=== PATIENT | male | born 1965 | race Hispanic/Latino ===

== ENCOUNTER → 2020-04-27 | Outpatient (CLI) | payer OTHER ==
[~2020-04-27] MED LIST: AMLODIPINE BESY10 MG PO; GLYBURIDE-METF1 EAC1 PO; HYDROCHLOROTHIA25 MG PO; JANUVIA100 MG PO; METOPROLOL SUCC50 MG PO; PANTOPRAZOLE SO40 MG PO
--- NOTE | 2020-04-27 09:11 | Diagnostic Imaging Report ---
Exam: CHEST 2 VIEWS Date: 04/27/2020 9:07 AM INDICATION: ^[id number] ^[id number] ^PNEUMONIA Comparison: None FINDINGS: Lines/Tubes:None Lungs:There are a few ill-defined opacities at the lung bases peripherally. Negative for focal lobar consolidation. Low lung volumes are noted. Pleura:No pleural effusion. No pneumothorax. Heart/Mediastinum:The cardiomediastinal silhouette is normal in size and contour. Bones/Soft Tissues: No acute osseous abnormality. Upper abdomen: Unremarkable. IMPRESSION: Ill-defined linear opacities at the lung bases peripherally. Findings are concerning for multifocal pneumonia. Consider covid infection. Low lung volumes. Signed by: Beau Mahoney MD on 04/27/2020 9:08 AM
== END ==
LOC: RAD 07:10
PROVIDERS: ATTEND Family Medicine
DX: Z09 Encounter for follow-up examination after completed treatment for conditions other than malignant neoplasm (principal); J18.9 Pneumonia, unspecified organism
CPT/HCPCS: 71046

== ENCOUNTER 2020-05-03 11:04 | Emergency (ER) | payer OTHER ==
[~2020-05-03] VITALS: Ht 170.2 cm; Wt 86.2 kg
[2020-05-03] MEDS ORDERED: LACTATED RINGER'S 1,000 ML INJ ONE ×2 (12:00→14:00)
[2020-05-03 12:07] LABS: BASOPHILS # (AUTO) 0.1 (0.0-0.1); BASOPHILS % 0.4 % (0.0-1.0); EOSINOPHILS # (AUTO) 0.1 (0.0-0.4); EOSINOPHILS % 0.4 % (0.0-6.0); HEMATOCRIT 36.9 % (38.2-49.6); HEMOGLOBIN 11.5 g/dL (14.0-18.0); LYMPHOCYTES # (AUTO) 1.1 (1.0-3.2); LYMPHOCYTES % 8.4 % (18.0-39.1); MEAN CORPUSCULAR HEMOGLOBIN 27.1 pg (28-32); MEAN CORPUSCULAR HGB CONC 31.2 g/dL (31-35); MEAN CORPUSCULAR VOLUME 86.8 fL (81-99); MONOCYTES # (AUTO) 1.7 (0.2-0.8); MONOCYTES % 12.9 % (4.4-11.3); NEUTROPHILS # (AUTO) 10.1 (2.1-6.9); NEUTROPHILS % 77.1 % (38.7-80.0); PLATELET COUNT 108 x10e3/uL (140-360); RED BLOOD COUNT 4.25 x10e6/uL (4.3-5.7)
--- OUTSIDE RECORDS SUMMARY | 2020-05-03 12:09 | XMS REPORT | Continuity of Care Document ---
Author Author [facility] t Organization [facility] t Address [address] [place] [address] Phone Unavailable Care Team Providers Care Intercell Connector Placer Name Role Phone Pcp, No PCP Unavailable AARTI ESQUIVEL, Christ MENDOZA Attphys Unavailable Hang ESQUIVEL, Jah Greenfield Attphys Monisha PorterP.A. -MCarlos Attphys Unavailable Carmela ESQUIVEL, Valdemar Attphys Anna Powers MD, Maciej Coles Attphys [phone] Preethi ESQUIVEL, Sophia Attphys Dominic ESQUIVEL, Charles Lawson Attphys [phone] Cara ESQUIVEL, Jenny Joy Attphys Jennifer ESQUIVEL, Aure Aden Attphys [phone] Jazmin Lemon MD, Gabriela Lawson Attphys [phone] Prudencio ESQUIVEL, Lana Lindsey Attphys Haley ESQUIVEL, Santos Callejas Attphys Saima Lafleur Attphys Unavailable Charles ESQUIVEL, Zully Attphys Ally ESQUIVEL, Gricelda Almeida Attphys Jessica ESQUIVEL, In Esteban Attphys Oz ESQUIVEL, Harrison Aden Attphys Miguel Angel ESQUIVEL, Jean [place] Attphys John ESQUIVEL, Taylor Attphys [phone] Gaye ESQUIVEL, Marco Antonio Kebede Attphys [phone] Valdemar SALGADO, Iain Cantu Attphys [phone] Sheikh ALVIN, Farhad Vega Attphys Dillan ESQUIVEL, Rigo Lacey Attphys Lorene ESQUIVEL, Kevyn Llamas Attphys VALDEMAR CASEY Attphys Unavailable Shy ESQUIVEL, Kamille Attphys Aislinn ESQUIVEL, Rolf Attphys SOPHIA ORO Admphys Unavailable Payers Payer Name Policy Type Policy Number Effective Date Expiration Date [facility] P OS SELECT [id number] 2019-PresentHMO/POS [id number] 2019 00:0 0:00 [facility] Problems Condition Name Condition Details Condition Category Status Onset Date Resolution Date Last Treatment Date Treating Clinician Comments Source Septic shock Septic shock Disease Active 2019-12-25 00:00:00 [facility] Acute renal failure with tubular necrosis Acute renal failure with tubular necrosis Disease Active 2019-12-25 00:00:00 [facility] Acute respiratory distress syndrome (ARDS) due to COVI D-19 virus Acute respiratory distress syndrome (ARDS) due to COVID-19 virus Disease A ctive 2019-12-25 00:00:00 [facility] Acute metabolic encephalopathy Acute metabolic encephalopathy Disea se Active 2019-12-25 00:00:00 [facility] Acute respiratory failure with hypoxia Acute respiratory evonne lure with hypoxia Disease Active 2019-12-11 00:00:00 [facility] Pneumonia due to COVID-19 virus Pneumonia due to COVID-19 virus Dis ease Active [facility] Hyperkalemia Hyperkalemia Disease Active [facility] Allergies, Adverse Reactions, Alerts This patient has no known allergies or adverse reactions. Social History Social Habit Start Date Stop Date Quantity Comments Source Sex Assigned At [facility] Tobacco use and exposure 2020-02-11 00:00:00 2020-02-11 00:00:00 Wilber nix used [facility] Smoking Status Start Date Stop Date Source Never smoker [facility] Medications Ordered Medication Name Filled Medication Name Start Date Stop Da te Current Medication? Ordering Clinician Indication Dosage Frequency Signature (SIG) Comments Components Source tamsulosin (FLOMAX) 0.4 mg Cap 24 hr capsule 2020-02-15 00:00:00 Yes .4mg QD Take 1 capsule (0.4 mg total) by mouth daily. [facility] zinc oxide-petrolatum (CRITIC-AID) 20-51 % Pste topical past e 2020-02-12 00:00:00 Yes Apply to i nner aspect of buttocks, sacral area, and perineal area 3 times daily and as needed. [facility] insulin glargine (LANTUS) 100 unit/mL (3 mL) InPn 2020-02-12 00:00:00 Yes 15U QD Inject 15 Units subcutaneously every morning. [facility] midodrine (PROAMATINE) 10 MG tablet 2020-02-12 00:00:0 0 2020-02-15 00:00:00 No 10mg Take 1 tablet ( 10 mg total) by mouth every 8 (eight) hours for 30 days. [facility] Vital Signs Vital Name Observation Time Observation Value Comments Source Heart rate 2020-02-15 12:16:00 115 /min [facility] Oxygen saturation in Arterial blood by Pulse oximetry 02-14 12:16:00 97 /min [facility] Azeeme r Systolic blood pressure 2020-02-15 12:00:00 144 mm[Hg] [facility] Diastolic blood pressure 2020-02-15 12:00:00 88 mm[Hg] [facility] Body temperature 2020-02-15 12:00:00 36.94 Dania [facility] Respiratory rate 2020-02-15 12:00:00 18 /min [facility] Body weight 2020-02-15 06:00:00 98 kg [facility] BMI 2020-02-15 06:00:00 31.00 kg/m2 [facility] Body height 2019-12-11 18:05:00 177.8 cm [facility] Procedures Procedure Date / Time Performed Performing Clinician [facility] MR BRAIN WITH & WITHOUT IV CONTRAST 2020-03-22 10:44:00 Jean Pierre Mauricio [facility] REPORT OF PROCEDURE - ENDOSCOPY SCAN 2020-02-17 09:10:11 Pro vider, Default Scanning [facility] RHYTHM STRIP - SCAN 2020-02-17 09:10:09 Provider, Default Scanni ng [facility] RHYTHM STRIP - SCAN 2020-02-17 09:10:07 Provider, Default Scanni ng [facility] POCT-GLUCOSE METER 2020-02-15 11:34:00 Esteban Lopez In [facility] POCT-GLUCOSE METER 2020-02-15 06:33:00 Esteban Lopez In [facility] POCT-GLUCOSE METER 2020-02-15 00:14:00 Esteban Lopez In [facility] POCT-GLUCOSE METER 2020-02-14 18:29:00 Esteban Lopez In [facility] POCT-GLUCOSE METER 2020-02-14 11:55:00 Esteban Lopez In [facility] B-TYPE NATRIURETIC FACTOR (BNP) 2020-02-14 06:15:00 Esteban Lopez In [facility] BASIC METABOLIC PANEL (7) 2020-02-14 06:15:00 Esteban Lopez In [facility] MAGNESIUM 2020-02-14 06:15:00 Esteban Lopez In [facility] BLOOD GAS, VENOUS 2020-02-14 06:15:00 Skyla Mendieta [facility] POCT-GLUCOSE METER 2020-02-13 23:18:00 Esteban Lopez In [facility] POCT-GLUCOSE METER 2020-02-13 17:56:00 Esteban Lopez In [facility] POCT-GLUCOSE METER 2020-02-13 05:54:00 Esteban Lopez In [facility] XR CHEST 1 VIEW PORTABLE/BEDSIDE 2020-02-13 05:25:00 Ludwig Hale [facility] BASIC METABOLIC PANEL (7) 2020-02-13 04:16:00 Esteban Lopez In [facility] MAGNESIUM 2020-02-13 04:16:00 Esteban Lopez In [facility] TROPONIN I 2020-02-13 04:16:00 Ludwig Hale [facility] POCT-GLUCOSE METER 2020-02-12 23:17:00 Esteban Lopez In [facility] TRANSFUSION SERVICE REPORT - SCAN 2020-02-12 18:02:35 Provid er, Default Scanning [facility] POCT-GLUCOSE METER 2020-02-12 17:33:00 Esteban Lopez In [facility] POCT-GLUCOSE METER 2020-02-12 05:26:00 Esteban Lopez In [facility] BASIC METABOLIC PANEL (7) 2020-02-12 03:29:00 Esteban Lopez In [facility] MAGNESIUM 2020-02-12 03:29:00 Esteban Lopez In [facility] CBC (HEMOGRAM ONLY) 2020-02-12 03:29:00 Esteban Lopez In [facility] POCT-GLUCOSE METER 2020-02-11 23:32:00 Esteban Lopez In [facility] POCT-GLUCOSE METER 2020-02-11 17:52:00 Esteban Lopez In [facility] INSERTION,GASTROSTOMY TUBE-LAPAROSCOPIC 2020-02-11 13:38:00 Taylor Lopez [facility] POCT-GLUCOSE METER 2020-02-11 11:46:00 Esteban Lopez In [facility] CBC (HEMOGRAM ONLY) 2020-02-11 11:33:00 Esteban Lopez In [facility] PROTHROMBIN TIME/INR 2020-02-11 11:33:00 Esteban Lopez In [facility] APTT 2020-02-11 11:33:00 Arpita Lopezg In [facility] ABORH, MANUAL 2020-02-11 11:33:00 Arpita Lopezg In [facility] POCT-GLUCOSE METER 2020-02-11 06:17:00 Esteban Lopez In [facility] BASIC METABOLIC PANEL (7) 2020-02-11 05:58:00 Esteban Lopez In [facility] HEPATIC FUNCTION PANEL 2020-02-11 05:58:00 Esteban Lopez In [facility] POCT-GLUCOSE METER 2020-02-10 23:54:00 Esteban Lopez In [facility] REPORT OF PROCEDURE - ENDOSCOPY URL 2020-02-10 17:02:05 Gary Curry [facility] UPPER ENDOSCOPY 2020-02-10 16:30:00 Gary Curry [facility] POCT-GLUCOSE METER 2020-02-10 11:29:00 Esteban Lopez In [facility] POCT-GLUCOSE METER 2020-02-10 05:52:00 Esteban Lopez In [facility] BASIC METABOLIC PANEL (7) 2020-02-10 03:41:00 Esteban Lopez In [facility] HEPATIC FUNCTION PANEL 2020-02-10 03:41:00 César Flannery [facility] CBC (HEMOGRAM ONLY) 2020-02-10 03:41:00 Esteban Lopez In [facility] POCT-GLUCOSE METER 2020-02-10 00:33:00 Arpita Lopezg In [facility] POCT-GLUCOSE METER 2020-02-09 17:55:00 Arpita Lopezg In [facility] POCT-GLUCOSE METER 2020-02-09 12:17:00 Arpita Lopezg In [facility] POCT-GLUCOSE METER 2020-02-09 05:26:00 [facility] 2020-02-09 03:41:00 César Flannery Lana [facility] BASIC METABOLIC PANEL (7) 2020-02-09 03:41:00 Ally [facility] PROTHROMBIN TIME/INR 2020-02-09 03:41:00 Feroz Gunderson [facility] CBC W/PLT COUNT & AUTO DIFFERENTIAL 2020-02-09 03:41:00 Jaswant, R ose [facility] POCT-GLUCOSE METER 2020-02-08 23:51:00 Ally [facility] POCT-GLUCOSE METER 2020-02-08 17:45:00 Ally [facility] BASIC METABOLIC PANEL (7) 2020-02-08 16:31:00 Ally [facility] POCT-GLUCOSE METER 2020-02-08 12:10:00 Ally [facility] POCT-GLUCOSE METER 2020-02-08 05:41:00 Ally [facility] HEPATIC FUNCTION PANEL 2020-02-08 04:22:00 César Flannery Lana [facility] COMPREHENSIVE METABOLIC PANEL 2020-02-08 04:22:00 Rocio Canales [facility] URIC ACID 2020-02-08 04:22:00 [facility] & AUTO DIFFERENTIAL 2020-02-08 04:22:00 Jaswant, R ose [facility] POCT-GLUCOSE METER 2020-02-08 00:09:00 Ally, [facility] POCT-GLUCOSE METER 2020-02-07 17:49:00 Ally [facility] POCT-GLUCOSE METER 2020-02-07 11:43:00 Ally, [facility] POCT-GLUCOSE METER 2020-02-07 06:20:00 Charles, [facility] HEPATIC FUNCTION PANEL 2020-02-07 06:19:00 César Flannery [facility] BASIC METABOLIC PANEL (7) 2020-02-07 06:19:00 Pedro Presley [facility] CBC W/PLT COUNT & AUTO DIFFERENTIAL 2020-02-07 06:19:00 Jaswant, R ose [facility] POCT-GLUCOSE METER 2020-02-07 00:01:00 Charles, [facility] POCT-GLUCOSE METER 2020-02-06 18:00:00 Charles, [facility] POCT-GLUCOSE METER 2020-02-06 12:14:00 Charles, [facility] POCT-GLUCOSE METER 2020-02-06 06:24:00 Charles, [facility] HEPATIC FUNCTION PANEL 2020-02-06 05:58:00 César Flannery [facility] BASIC METABOLIC PANEL (7) 2020-02-06 05:58:00 Kerri Cates [facility] CBC W/PLT COUNT & AUTO DIFFERENTIAL 2020-02-06 05:58:00 Jaswant, R ose [facility] POCT-GLUCOSE METER 2020-02-06 00:01:00 Charles, [facility] POCT-GLUCOSE METER 2020-02-05 17:49:00 Charles, [facility] XR CHEST 1 VIEW PORTABLE/BEDSIDE 2020-02-05 12:42:00 Manian Pra sad [facility] POCT-GLUCOSE METER 2020-02-05 12:03:00 Charles, [facility] POCT-GLUCOSE METER 2020-02-05 05:15:00 Charles, [facility] HEPATIC FUNCTION PANEL 2020-02-05 04:25:00 Prudencio [facility] CBC W/PLT COUNT & AUTO DIFFERENTIAL 2020-02-05 04:25:00 Jaswant, R ose [facility] POCT-GLUCOSE METER 2020-02-04 23:08:00 Charles, [facility] POCT-GLUCOSE METER 2020-02-04 17:59:00 Charles, [facility] POCT-GLUCOSE METER 2020-02-04 12:11:00 Charles, [facility] POCT-GLUCOSE METER 2020-02-04 06:17:00 Ally [facility] HEPATIC FUNCTION PANEL 2020-02-04 04:32:00 César Flannery [facility] BASIC METABOLIC PANEL (7) 2020-02-04 04:32:00 Ally [facility] CBC W/PLT COUNT & AUTO DIFFERENTIAL 2020-02-04 04:32:00 Jaswant, R ose [facility] POCT-GLUCOSE METER 2020-02-03 23:30:00 Ally [facility] POCT-GLUCOSE METER 2020-02-03 18:19:00 Ally, [facility] POCT-GLUCOSE METER 2020-02-03 11:34:00 Ally, [facility] POCT-GLUCOSE METER 2020-02-03 05:54:00 Ally, [facility] HEPATIC FUNCTION PANEL 2020-02-03 04:12:00 César Flannery [facility] BASIC METABOLIC PANEL (7) 2020-02-03 04:12:00 [facility] W[facility] & AUTO DIFFERENTIAL 2020-02-03 04:12:00 Jaswant, R ose [facility] POCT-GLUCOSE METER 2020-02-02 23:45:00 Ally [facility] POCT-GLUCOSE METER 2020-02-02 18:19:00 Ally, [facility] POCT-GLUCOSE METER 2020-02-02 11:35:00 Ally, [facility] POCT-GLUCOSE METER 2020-02-02 05:43:00 [facility] BLOOD GAS, ARTERIAL 2020-02-02 04:04:00 Charles, [facility] HEPATIC FUNCTION PANEL 2020-02-02 04:03:00 César Flannery [facility] EBV VIRAL LOAD 2020-02-02 04:03:00 Satnam Villanueva [facility] BASIC METABOLIC PANEL (7) 2020-02-02 04:03:00 Charles, [facility] MAGNESIUM 2020-02-02 04:03:00 Charles, [facility] CBC W/PLT COUNT & AUTO DIFFERENTIAL 2020-02-02 04:03:00 Pepe Michaude [facility] POCT-GLUCOSE METER 2020-02-02 00:08:00 [facility] HEMODIALYSIS INPATIENT 2020-02-01 23:30:00 Ronak Garcia [facility] POCT-GLUCOSE METER 2020-02-01 18:34:00 [facility] POCT-GLUCOSE METER 2020-02-01 12:06:00 Benita Marroquin [facility] POCT-GLUCOSE METER 2020-02-01 06:16:00 Benita Marroquin [facility] HEPATIC FUNCTION PANEL 2020-02-01 05:36:00 César Flannery [facility] BASIC METABOLIC PANEL (7) 2020-02-01 05:36:00 AfaqTetohammed A C [facility] MAGNESIUM 2020-02-01 05:36:00 Lulu Alfaro Charles [facility] CBC W/PLT COUNT & AUTO DIFFERENTIAL 2020-02-01 05:36:00 Jaswant, Pepe ose [facility] POCT-GLUCOSE METER 2020-01-31 23:59:00 Benita Marroquin [facility] POCT-GLUCOSE METER 2020-01-31 18:25:00 Benita Marroquin [facility] BLOOD GAS, ARTERIAL 2020-01-31 15:59:00 Jaswant, Narcsia [facility] BASIC METABOLIC PANEL (7) 2020-01-31 15:58:00 AfTimo dockery A Logan [facility] MAGNESIUM 2020-01-31 15:58:00 Lulu Alfaro [facility] POCT-GLUCOSE METER 2020-01-31 12:27:00 Benita Marroquin [facility] POCT-GLUCOSE METER 2020-01-31 05:58:00 Lulu Alfaro C [facility] BLOOD GAS, ARTERIAL 2020-01-31 03:54:00 Jaswant, Narcisa [facility] HEPATIC FUNCTION PANEL 2020-01-31 03:53:00 César Flannery [facility] BASIC METABOLIC PANEL (7) 2020-01-31 03:53:00 Timo Jeffers [facility] VANCOMYCIN LEVEL, RANDOM 2020-01-31 03:53:00 Jorge Higgins [facility] CBC W/PLT COUNT & AUTO DIFFERENTIAL 2020-01-31 03:53:00 Pepe Michaud [facility] POCT-GLUCOSE METER 2020-01-30 23:57:00 Lulu Alfaro C [facility] POCT-GLUCOSE METER 2020-01-30 17:32:00 Lulu Alfaro C [facility] BLOOD GAS, ARTERIAL 2020-01-30 15:36:00 Jaswant, Narcisa [facility] BASIC METABOLIC PANEL (7) 2020-01-30 15:36:00 AfTimo dockery A C [facility] PHOSPHORUS 2020-01-30 15:36:00 Markie Humphrey [facility] MAGNESIUM 2020-01-30 15:36:00 Keshia Andino [facility] BLOOD GAS, ARTERIAL 2020-01-30 03:50:00 Jaswant, Narcisa [facility] HEPATIC FUNCTION PANEL 2020-01-30 03:50:00 César Flannery [facility] BASIC METABOLIC PANEL (7) 2020-01-30 03:50:00 Timo Jeffers [facility] VANCOMYCIN LEVEL, RANDOM 2020-01-30 03:50:00 Jorge Higgins [facility] HEPATITIS B SURFACE ANTIGEN 2020-01-30 03:50:00 Airy, Aleida [facility] MAGNESIUM 2020-01-30 03:50:00 Lulu Alfaro [facility] CBC W/PLT COUNT & AUTO DIFFERENTIAL 2020-01-30 03:50:00 Jaswant, R ose [facility] POCT-GLUCOSE METER 2020-01-30 00:27:00 Valery Lafleur [facility] HEMODIALYSIS INPATIENT 2020-01-29 20:13:37 Markie Humphrey [facility] MAGNESIUM 2020-01-29 16:46:00 Keshia Andino [facility] BLOOD GAS, ARTERIAL 2020-01-29 14:58:00 Jaswant, Narcisa [facility] BASIC METABOLIC PANEL (7) 2020-01-29 14:58:00 Timo Jeffers [facility] BLOOD CULTURE 2020-01-29 09:38:00 Jorge Higgins [facility] URINE CULTURE 2020-01-29 09:38:00 Jorge Higgins [facility] URINALYSIS W/ REFLEX URINE CULTURE 2020-01-29 09:38:00 Billy Higgins [facility] POCT-GLUCOSE METER 2020-01-29 06:26:00 AnastasiialuBritta fang [facility] BLOOD GAS, ARTERIAL 2020-01-29 04:56:00 Jaswant, Narcisa [facility] HEPATIC FUNCTION PANEL 2020-01-29 04:55:00 César Flannery [facility] BASIC METABOLIC PANEL (7) 2020-01-29 04:55:00 Timo Jeffers [facility] MAGNESIUM 2020-01-29 04:55:00 Keshia Andino [facility] CBC W/PLT COUNT & AUTO DIFFERENTIAL 2020-01-29 04:55:00 Jaswant, Pepe david [facility] POCT-GLUCOSE METER 2020-01-29 00:10:00 ValluriBritta [facility] POCT-GLUCOSE METER 2020-01-28 19:44:[facility] 2020-01-28 15:26:00 Jaswant, Narcisa [facility] BASIC METABOLIC PANEL (7) 2020-01-28 15:26:00 Timo Jeffers [facility] MAGNESIUM 2020-01-28 15:26:00 Keshia Andino [facility] HEMODIALYSIS INPATIENT 2020-01-28 15:21:00 Markie Humphrey [facility] SPUTUM CULTURE + GRAM STAIN 2020-01-28 10:21:00 Keaton [facility] BLOOD GAS, ARTERIAL 2020-01-28 10:21:00 Keaton [facility] POCT-GLUCOSE METER 2020-01-28 07:15:00 [facility] POCT-GLUCOSE METER 2020-01-28 05:52:00 [facility]Br[facility] HEPATIC FUNCTION PANEL 2020-01-28 05:01:00 César Flannery [facility] MAGNESIUM 2020-01-28 05:01:00 Keshia Andino [facility] BASIC METABOLIC PANEL (7) 2020-01-28 05:01:00 Timo Jeffers [facility] CBC W/PLT COUNT & AUTO DIFFERENTIAL 2020-01-28 05:01:00 Jaswant, Pepe oschin [facility] BLOOD GAS, ARTERIAL 2020-01-28 04:54:00 Jaswant, Narcisa [facility] POCT-GLUCOSE METER 2020-01-27 23:49:00 Valluri, [facility] BLOOD GAS, ARTERIAL 2020-01-27 22:55:00 Afaq, Muhammed A [facility] XR CHEST 1 VIEW PORTABLE/BEDSIDE 2020-01-27 20:47:00 Afaq, Muham med A [facility] XR ABDOMEN / KUB 1 VIEW 2020-01-27 20:47:00 Afaq, Muhammed A [facility] BLOOD GAS, ARTERIAL 2020-01-27 18:15:00 JaswantNarcisa jacobo [facility] BASIC METABOLIC PANEL (7) 2020-01-27 17:06:00 Keshia Andino ma [facility] MAGNESIUM 2020-01-27 17:06:00 Keshia Andino [facility] POCT-GLUCOSE METER 2020-01-27 13:12:00 Haley [facility] BLOOD GAS, ARTERIAL 2020-01-27 09:08:00 Darryn Jean [facility] BASIC METABOLIC PANEL (7) 2020-01-27 07:38:00 Keshia Andino ma [facility] POCT-GLUCOSE METER 2020-01-27 07:10:00 Haley [facility] HEPATIC FUNCTION PANEL 2020-01-27 03:38:00 César Flannery [facility] MAGNESIUM 2020-01-27 03:38:00 Keshia Andino [facility] BASIC METABOLIC PANEL (7) 2020-01-27 03:38:00 Narcisa Michaud [facility] CBC W/PLT COUNT & AUTO DIFFERENTIAL 2020-01-27 03:38:00 Pepe Michaud ose [facility] BLOOD GAS, ARTERIAL 2020-01-27 03:26:00 JaswantNarcisa jacobo [facility] POCT-GLUCOSE METER 2020-01-27 01:13:00 Haley [facility] XR CHEST 1 VIEW PORTABLE/BEDSIDE 2020-01-26 21:21:00 Ion Llamas [facility] POCT-GLUCOSE METER 2020-01-26 20:44:00 Britta De Leon [facility] XR CHEST 1 VIEW PORTABLE/BEDSIDE 2020-01-26 16:33:00 Arnel Andino [facility] BASIC METABOLIC PANEL (7) 2020-01-26 16:19:00 Keshia Andino ma [facility] MAGNESIUM 2020-01-26 16:19:00 Keshia Andino [facility] BLOOD GAS, ARTERIAL 2020-01-26 16:19:00 Keshia Andino [facility] GLUCOSE-STAT LAB 2020-01-26 16:18:00 Keshia Andino [facility] CALCIUM, IONIZED 2020-01-26 16:18:00 Keshia Andion [facility] CBC W/PLT COUNT & AUTO DIFFERENTIAL 2020-01-26 16:18:00 Rina Andino [facility] BASIC METABOLIC PANEL (7) 2020-01-26 10:29:00 Иван Humphrey [facility] BLOOD GAS, ARTERIAL 2020-01-26 10:28:00 Darryn Jean [facility] POCT-GLUCOSE METER 2020-01-26 05:55:00 Britta De Leon [facility] BLOOD GAS, ARTERIAL 2020-01-26 03:46:00 Narcisa Michaud [facility] HEPATIC FUNCTION PANEL 2020-01-26 03:46:00 César Flannery [facility] BASIC METABOLIC PANEL (7) 2020-01-26 03:46:00 Yosi Short i [facility] CBC W/PLT COUNT & AUTO DIFFERENTIAL 2020-01-26 03:46:00 Pepe Michaud [facility] POCT-GLUCOSE METER 2020-01-26 00:21:00 Britta De Leon [facility] POCT-GLUCOSE METER 2020-01-25 23:50:00 Valluri, [facility] TRANSFUSION SERVICE REPORT - SCAN 2020-01-25 18:22:33 Provid er, Default Scanning [facility] BLOOD GAS, ARTERIAL 2020-01-25 17:54:00 JaswantNarcisa [facility] POCT-GLUCOSE METER 2020-01-25 17:53:00 Valluri [facility] BLOOD GAS, ARTERIAL 2020-01-25 [facility]:03[facility] 2020-01-25 12:10[facility] (7) 2020-01-25 11:34:00 Milagro [facility] CALCIUM, IONIZED 2020-01-25 11:34:[address] [facility] [place] PHOSPHORUS 2020-01-25 11:34:[address] [facility] MAGNESIUM 2020-01-25 11:34:[address] [facility] XR CHEST 1 VIEW PORTABLE/BEDSIDE 2020-01-25 10:47:00 Anish Gómez [facility] POCT-GLUCOSE METER 2020-01-25 06:24:00 Valluannalisa [facility] CALCIUM, IONIZED 2020-01-25 05:03:[address] [facility] [place] BLOOD GAS, ARTERIAL 2020-01-25 05:02:00 JaswantNarcisa [facility] BASIC METABOLIC PANEL (7) 2020-01-25 05:02:00 Neagra Иван r [facility] PHOSPHORUS 2020-01-25 05:02:[address] [facility] MAGNESIUM 2020-01-25 05:02:[address] [facility] CBC W/PLT COUNT & AUTO DIFFERENTIAL 2020-01-25 01:37:00 Jaswant R ose [facility] BASIC METABOLIC PANEL (7) 2020-01-25 01:13:00 Neagra, Иван r [facility] CALCIUM, IONIZED 2020-01-25 01:13:00 Neagra, [facility] [facility] ([place], [place]) PHOSPHORUS 2020-01-25 01:13:00 Neagra, [facility] MAGNESIUM 2020-01-25 01:13:00 Neagra, [facility] HEPATIC FUNCTION PANEL 2020-01-25 01:13:00 César Flannery [facility] POCT-GLUCOSE METER 2020-01-25 01:10:00 Britta De Leon [facility] PREPARE LEUKO-REDUCED RBC 2020-01-24 23:54:00 Inocencia Cadet [facility] BASIC METABOLIC PANEL (7) 2020-01-24 22:09:00 Neagra, Иван r [facility] CALCIUM, IONIZED 2020-01-24 22:09:00 Neagra, [facility] ([place], [place]) PHOSPHORUS 2020-01-24 22:09:00 Neagra, [facility] MAGNESIUM 2020-01-24 22:09:00 Neagr, [facility] TRANSFUSION SERVICE REPORT - SCAN 2020-01-24 18:01:06 Provid er, Default Scanning [facility] BLOOD GAS, ARTERIAL 2020-01-24 18:01:00 Narcisa Michaud [facility] POCT-GLUCOSE METER 2020-01-24 17:40:00 ValBritta mcgowan [facility] BLOOD GAS, ARTERIAL 2020-01-24 12:07:00 Mary Hicks I [facility] MAGNESIUM 2020-01-24 12:06:00 Valery Presley S C [facility] PHOSPHORUS 2020-01-24 12:06:00 Valery Presley Ali S C [facility] POCT-GLUCOSE METER 2020-01-24 12:05:00 Britta De Leon [facility] BASIC METABOLIC PANEL (7) 2020-01-24 08:49:00 Pedro Presley Ali S [facility] MAGNESIUM 2020-01-24 08:49:00 Anabelle Presleyd Ali S C HI [facility] PHOSPHORUS 2020-01-24 08:49:00 Anabelle Presleyd Ali S C [facility] BLOOD GAS, ARTERIAL 2020-01-24 08:48:00 Marii Arriaga [facility] BLOOD GAS, ARTERIAL 2020-01-24 03:52:00 Narcisa Michaud [facility] HEPATIC FUNCTION PANEL 2020-01-24 03:51:00 César Flannery [facility] BASIC METABOLIC PANEL (7) 2020-01-24 03:51:00 Pedro Presley Ali S [facility] MAGNESIUM 2020-01-24 03:51:00 Anabelle Presleyd Ali S C [facility] PHOSPHORUS 2020-01-24 03:51:00 Valery Presley Ali S C [facility] CBC W/PLT COUNT & AUTO DIFFERENTIAL 2020-01-24 03:51:00 Pepe Michaud [facility] BASIC METABOLIC PANEL (7) 2020-01-23 23:43:00 Pedro Presley Ali S [facility] MAGNESIUM 2020-01-23 23:43:00 Valery Presley Ali S C [facility] PHOSPHORUS 2020-01-23 23:43:00 Anabelle Presleyd Ali S C [facility] BASIC METABOLIC PANEL (7) 2020-01-23 20:32:00 Pedro Presley ad Ali S [facility] MAGNESIUM 2020-01-23 20:32:00 Anabelle Presleyd Ali S C [facility] PHOSPHORUS 2020-01-23 20:32:00 Anabelle Presleyd Ali S C [facility] POCT-GLUCOSE METER 2020-01-23 17:04:00 Benita Marroquin [facility] BLOOD GAS, ARTERIAL 2020-01-23 15:58:00 Narcisa Michaud [facility] HEMOGLOBIN AND HEMATOCRIT 2020-01-23 15:58:00 Robina Arriagarosienolan leo [facility] TRANSFUSE LEUKO-REDUCED RED BLOOD CELLS 2020-01-23 14:34:23 Froilan Cadet [facility] BASIC METABOLIC PANEL (7) 2020-01-23 14:09:00 Иван Humphrey [facility] MAGNESIUM 2020-01-23 14:09:00 Valery Presley S C [facility] PHOSPHORUS 2020-01-23 14:09:00 Valery Presley Ali S C [facility] POCT-GLUCOSE METER 2020-01-23 11:40:00 Benita Marroquin [facility] BASIC METABOLIC PANEL (7) 2020-01-23 10:04:00 Иван Humphrey [facility] MAGNESIUM 2020-01-23 10:04:00 Valery Presley S C [facility] PHOSPHORUS 2020-01-23 10:04:00 Valery Presley Ali S C [facility] POCT-GLUCOSE METER 2020-01-23 05:04:00 Benita Marroquin [facility] TYPE AND SCREEN, AUTOMATED 2020-01-23 05:04:00 Sherry Cadet [facility] BASIC METABOLIC PANEL (7) 2020-01-23 03:17:00 Иван Humphrey [facility] MAGNESIUM 2020-01-23 03:17:00 Valery Presley S C [facility] PHOSPHORUS 2020-01-23 03:17:00 Valery Presley Ali S C [facility] BLOOD GAS, ARTERIAL 2020-01-23 03:17:00 Narcisa Michaud [facility] HEPATIC FUNCTION PANEL 2020-01-23 03:17:00 César Flannery [facility] CBC W/PLT COUNT & AUTO DIFFERENTIAL 2020-01-23 03:17:00 Jaswant, R ose [facility] (CELLAVISION MANUAL DIFF) 2020-01-23 03:17:00 Narcisa Michaud [facility] POCT-GLUCOSE METER 2020-01-23 00:50:00 Benita Marroquin [facility] BASIC METABOLIC PANEL (7) 2020-01-22 22:21:00 Иван Humphrey [facility] MAGNESIUM 2020-01-22 22:21:00 Valery Presley S C [facility] PHOSPHORUS 2020-01-22 22:21:00 Valery Presley S C [facility] BASIC METABOLIC PANEL (7) 2020-01-22 16:06:00 Иван Humphrey [facility] BLOOD GAS, ARTERIAL 2020-01-22 16:06:00 Narcisa Michaud [facility] POCT-GLUCOSE METER 2020-01-22 05:43:00 Benita Marroquin [facility] BASIC METABOLIC PANEL (7) 2020-01-22 04:54:00 Иван Humphrey [facility] HEPATIC FUNCTION PANEL 2020-01-22 04:54:00 César Flannery [facility] BLOOD GAS, ARTERIAL 2020-01-22 04:52:00 Jaswant, Narcisa [facility] CBC W/PLT COUNT & AUTO DIFFERENTIAL 2020-01-22 04:52:00 Jaswant, R oschin [facility] (CELLAVISION MANUAL DIFF) 2020-01-22 04:52:00 Jaswant, Narcisa [facility] BASIC METABOLIC PANEL (7) 2020-01-22 02:06:00 Иван Humphrey [facility] PHOSPHORUS 2020-01-22 02:06:00 Markie Humphrey [facility] CALCIUM, IONIZED 2020-01-22 02:06:00 Markie Humphrey [facility] MAGNESIUM 2020-01-22 02:06:00 Markie Humphrey [facility] POCT-GLUCOSE METER 2020-01-22 00:54:00 Benita Marroquin [facility] POCT-GLUCOSE METER 2020-01-21 17:25:00 Benita Marroquin [facility] BLOOD GAS, ARTERIAL 2020-01-21 17:19:00 Narcisa Michaud [facility] US ABDOMEN LIMITED 2020-01-21 13:45:00 Benita Marroquin [facility] POCT-GLUCOSE METER 2020-01-21 13:15:00 Benita Marroquin [facility] POCT-GLUCOSE METER 2020-01-21 06:03:00 Benita Marroquin [facility] BASIC METABOLIC PANEL (7) 2020-01-21 03:46:00 NeagraИван [facility] MAGNESIUM 2020-01-21 03:46:[address] [facility] PHOSPHORUS 2020-01-21 03:46:[address] [facility] CALCIUM, IONIZED 2020-01-21 03:46:00 Neagra, [facility] ([place], [place]) BLOOD GAS, ARTERIAL 2020-01-21 03:46:00 Narcisa Michaud [facility] HEPATIC FUNCTION PANEL 2020-01-21 03:46:00 César Flannery [facility] CBC W/PLT COUNT & AUTO DIFFERENTIAL 2020-01-21 03:46:00 Pepe Michaud [facility] (MANUAL DIFFERENTIAL) 2020-01-21 03:46:00 Benita Marroquin [facility] BASIC METABOLIC PANEL (7) 2020-01-21 00:22:00 NeagraИван [facility] MAGNESIUM 2020-01-21 00:22:[address] [facility] PHOSPHORUS 2020-01-21 00:22:00 Neagra, [facility] CALCIUM, IONIZED 2020-01-21 00:22:[address] [facility] ([place], [place]) POCT-GLUCOSE METER 2020-01-21 00:08:00 Benita Marroquin [facility] BASIC METABOLIC PANEL (7) 2020-01-20 21:46:00 NeagrИван farmer [facility] MAGNESIUM 2020-01-20 21:46:00 Neagra, [facility] PHOSPHORUS 2020-01-20 21:46:[address] [facility] CALCIUM, IONIZED 2020-01-20 21:46:[address] [facility] ([place], [place]) POCT-GLUCOSE METER 2020-01-20 17:27:00 [facility]LOOD [facility], ART[facility] 2020-01-20 17:19:00 Narcisa Michaud [facility] POCT-GLUCOSE METER 2020-01-20 13:06:00 [facility] POCT-GLUCOSE METER 2020-01-20 05:55:00 Cara [facility] HEPATIC FUNCTION PANEL 2020-01-20 03:59:00 César Flannery [facility] BASIC METABOLIC PANEL (7) 2020-01-20 03:59:00 Neagra Иван r [facility] CALCIUM, IONIZED 2020-01-20 03:59:[address] [facility] ([place], [place]) PHOSPHORUS 2020-01-20 03:59:[address] [facility] MAGNESIUM 2020-01-20 03:59:[address] [facility] CBC W/PLT COUNT & AUTO DIFFERENTIAL 2020-01-20 03:59:00 JaswantPepe jacobo [facility] (CELLAVISION MANUAL DIFF) 2020-01-20 03:59:00 Jaswant Narcisa [facility] BLOOD GAS, ARTERIAL 2020-01-20 03:58:00 Jaswant, Narcisa [facility] POCT-GLUCOSE METER 2020-01-19 23:59:00 Cara Gandeevillevijaya Alvarado [facility] BASIC METABOLIC PANEL (7) 2020-01-19 23:57:00 Neagra, [facility] [place] [facility] CALCIUM, IONIZED 2020-01-19 23:57:00 Neagra, [facility] ([place], [place]) PHOSPHORUS 2020-01-19 23:57:00 Neagra, [facility] MAGNESIUM 2020-01-19 23:57:00 Neagra, [facility] BASIC METABOLIC PANEL (7) 2020-01-19 20:39:00 Neagra, [facility] [place] [facility] CALCIUM, IONIZED 2020-01-19 20:39:00 Neagra, [facility] ([place], [place]) PHOSPHORUS 2020-01-19 20:39:00 Neagra, [facility] MAGNESIUM 2020-01-19 20:39:00 Neagra, [facility] POCT-GLUCOSE METER 2020-01-19 18:05:00 [facility] BASIC METABOLIC PANEL (7) 2020-01-19 16:29:[address] [facility] pepe [facility] BLOOD GAS, ARTERIAL 2020-01-19 16:29:00 JaswantNarcisa [facility] POCT-GLUCOSE METER 2020-01-19 12:13:00 [facility] BLOOD GAS, ARTERIAL 2020-01-19 09:28:00 Darryn Jean [facility] BASIC METABOLIC PANEL (7) 2020-01-19 07:48:00 Ronak Garcia CH I [facility] PHOSPHORUS 2020-01-19 07:48:00 Ronak Garcia [facility] MAGNESIUM 2020-01-19 07:48:00 [facility]CI[facility], [facility]ON[facility]ED 2020-01-19 07:48:00 [facility] 2020-01-19 05:07:00 Benita Marroquin [facility] BLOOD GAS, ARTERIAL 2020-01-19 03:13:00 Jaswant, Narcisa [facility] BASIC METABOLIC PANEL (7) 2020-01-19 03:12:00 Иван Humphrey [facility] HEPATIC FUNCTION PANEL 2020-01-19 03:12:00 César Flannery [facility] PHOSPHORUS 2020-01-19 03:12:00 Al Attar, [facility] MAGNESIUM 2020-01-19 03:12:00 Ut [facility] CALCIUM, IONIZED 2020-01-19 03:12:00 Al Attar, [facility] CBC W/PLT COUNT & AUTO DIFFERENTIAL 2020-01-19 03:12:00 JaswantPepe [facility] PHOSPHORUS 2020-01-18 23:12:00 Al Attar, [facility] MAGNESIUM 2020-01-18 23:12:00 [facility] CALCIUM, IONIZED 2020-01-18 23:12:00 Ut Attar, [facility] POCT-GLUCOSE METER 2020-01-18 23:11:00 Benita Marroquin [facility] BASIC METABOLIC PANEL (7) 2020-01-18 21:28:00 Иван Humphrey [facility] CBC (HEMOGRAM ONLY) 2020-01-18 20:07:00 César Flannery Taqueria [facility] TRANSFUSION SERVICE REPORT - SCAN 2020-01-18 18:13:40 Provid er, Default Scanning [facility] POCT-GLUCOSE METER 2020-01-18 15:57:00 Benita Marroquin [facility] BLOOD GAS, ARTERIAL 2020-01-18 15:50:00 Jaswant Narcisa [facility] POCT-GLUCOSE METER 2020-01-18 11:38:00 Benita Marroquin [facility] CBC (HEMOGRAM ONLY) 2020-01-18 11:34:00 César Flannery [facility] BLOOD GAS, ARTERIAL 2020-01-18 11:34:00 Oneil Baezadhu [facility] POCT-GLUCOSE METER 2020-01-18 05:45:00 Benita Marroquin [facility] BLOOD GAS, ARTERIAL 2020-01-18 03:18:00 Narcisa Michaud [facility] HEPATIC FUNCTION PANEL 2020-01-18 03:17:00 César Flannery [facility] CALCIUM 2020-01-18 03:17:00 AnumuduDevora [facility] COMPREHENSIVE METABOLIC PANEL 2020-01-18 03:17:00 Martin Humphrey [facility] CBC W/PLT COUNT & AUTO DIFFERENTIAL 2020-01-18 03:17:00 Jaswant R ose [facility] (CELLAVISION MANUAL DIFF) 2020-01-18 03:17:00 Narcisa Michaud [facility] PREPARE LEUKO-REDUCED RBC 2020-01-17 23:54:00 Aurora Copeland [facility] POCT-GLUCOSE METER 2020-01-17 23:51:00 Benita Marroquin [facility] PHOSPHORUS 2020-01-17 21:44:00 Jania Smith [facility] MAGNESIUM 2020-01-17 21:44:00 Jania Smith [facility] CBC (HEMOGRAM ONLY) 2020-01-17 21:44:00 César Flannery [facility] POCT-GLUCOSE METER 2020-01-17 21:43:00 Benita Marroquin [facility] TRANSFUSION SERVICE REPORT - SCAN 2020-01-17 18:01:37 Provid er, Default Scanning [facility] POCT-GLUCOSE METER 2020-01-17 16:54:[address] Prudencio [facility] BLOOD GAS, ARTERIAL 2020-01-17 15:55:00 Jaswant, [facility] POCT-GLUCOSE METER 2020-01-17 11:44:00 César Flannery [facility] PHOSPHORUS 2020-01-17 08:10:00 Luis [facility] MAGNESIUM 2020-01-17 08:10:00 Luis [facility] CBC (HEMOGRAM ONLY) 2020-01-17 08:10:00 Prudencio César [facility] POCT-GLUCOSE METER 2020-01-17 06:49:00 Prudencio [facility] CBC W/PLT COUNT & AUTO DIFFERENTIAL 2020-01-17 03:35:00 JaswantPepe [facility] BLOOD GAS, ARTERIAL 2020-01-17 03:34:00 Jaswant [facility] HEPATIC FUNCTION PANEL 2020-01-17 02:37:00 Prudencio [facility] BASIC METABOLIC PANEL (7) 2020-01-17 02:37:00 Tori Barcenas [facility] POCT-GLUCOSE METER 2020-01-17 00:18:00 César Flannery [facility] PHOSPHORUS 2020-01-16 22:14:00 Luis [facility] MAGNESIUM 2020-01-16 22:14:00 Luis [facility] POCT-GLUCOSE METER 2020-01-16 17:16:00 Prudencio César [facility] BLOOD GAS, ARTERIAL 2020-01-16 17:00:00 Jaswant, [facility] CBC W/PLT COUNT & AUTO DIFFERENTIAL 2020-01-16 17:00:00 Aurora Copeland [facility] POCT-GLUCOSE METER 2020-01-16 13:19:00 Prudencio [facility] TRANSFUSE LEUKO-REDUCED RED BLOOD CELLS 2020-01-16 12:41:15 Auroar [place] ph [facility] PHOSPHORUS 2020-01-16 08:20:00 [facility] MAGNESIUM 2020-01-16 08:20:00 Luis [facility] ABORH, MANUAL 2020-01-16 08:20:00 Aurora Copeland [facility] CBC W/PLT COUNT & AUTO DIFFERENTIAL 2020-01-16 06:52:00 Christ Bailey [facility] (CELLAVISION MANUAL DIFF) 2020-01-16 06:52:00 Gi Bailey [facility] POCT-GLUCOSE METER 2020-01-16 06:49:00 Prudencio [facility] BLOOD GAS, ARTERIAL 2020-01-16 04:49:00 Narcisa Michaud [facility] BASIC METABOLIC PANEL () 2020-01-16 04:48:00 Jennifer Aquino [facility] HEPATIC FUNCTION PANEL 2020-01-16 04:48:00 Prudencio César [facility] CBC W/PLT COUNT & AUTO DIFFERENTIAL 2020-01-16 04:48:00 ePpe Michaud [facility] APTT 2020-01-16 01:37:00 Jerald Paz [facility] POCT-GLUCOSE METER 2020-01-16 01:29:00 Prudencio César [facility] POCT-GLUCOSE METER 2020-01-16 01:00:00 César Flannery [facility] MAGNESIUM 2020-01-15 20:36:00 Luis [facility] PHOSPHORUS 2020-01-15 20:36:00 Luis [facility] BASIC METABOLIC PANEL (7) 2020-01-15 20:36:00 [facility] BLOOD GAS, ARTERIAL 2020-01-15 18:00:00 Narcisa Michaud [facility] MAGNESIUM 2020-01-15 17:57:00 Markie Wan [facility] PHOSPHORUS 2020-01-15 17:57:00 Markie Wan [facility] POCT-GLUCOSE METER 2020-01-15 17:57:00 César Flannery [facility] POCT-GLUCOSE METER 2020-01-15 13:03:00 César Flannery [facility] BLOOD GAS, ARTERIAL 2020-01-15 13:00:00 Aurora Copeland [facility] XR CHEST 1 VIEW PORTABLE/BEDSIDE 2020-01-15 12:36:00 Sonam Copeland [facility] TRACHEOSTOMY 2020-01-15 08:00:00 Eric Grimaldo [facility] POCT-GLUCOSE METER 2020-01-15 04:39:00 [facility] 2020-01-15 04:08:00 Jerald Paz [facility] MAGNESIUM 2020-01-15 04:08:00 Markie Wan [facility] PHOSPHORUS 2020-01-15 04:08:00 Markie Wan [facility] BASIC METABOLIC PANEL (7) 2020-01-15 04:08:00 Jennifer Aquino [facility] HEPATIC FUNCTION PANEL 2020-01-15 04:08:00 César Flannery [facility] PT/APTT 2020-01-15 04:08:00 Yosi Perkins [facility] STRONGYLOIDES ANTIBODY, IGG 2020-01-15 04:08:00 César Flannery Ba [facility] CBC W/PLT COUNT & AUTO DIFFERENTIAL 2020-01-15 04:08:00 Pepe Michaud oschin [facility] (CELLAVISION MANUAL DIFF) 2020-01-15 04:08:00 Narcisa Michaud [facility] BLOOD GAS, ARTERIAL 2020-01-15 04:07:00 Narcisa Michaud [facility] POCT-GLUCOSE METER 2020-01-15 00:03:00 César Flannery [facility] APTT 2020-01-14 22:02:00 MancusoBrianna [facility] APTT 2020-01-14 18:25:[address] [facility] BLOOD GAS, ARTERIAL 2020-01-14 17:13:00 JaswantNarcisa jacobo [facility] MAGNESIUM 2020-01-14 17:12:00 JenniferMarkie Aure [facility] PHOSPHORUS 2020-01-14 17:12:00 Jennifer [facility] POCT-GLUCOSE METER 2020-01-14 17:12:00 Lulu Verde [facility] SPUTUM CULTURE + GRAM STAIN 2020-01-14 14:33:00 Darryn Jean [facility] XR CHEST 1 VIEW PORTABLE/BEDSIDE 2020-01-14 12:39:00 Puneet Jean [facility] POCT-GLUCOSE METER 2020-01-14 12:30:00 Lulu Verde [facility] APTT 2020-01-14 12:14:00 Jerald Paz [facility] THROMBOELASTOGRAPH (TEG) 2020-01-14 12:14:00 Bartolome [facility] HEPATIC FUNCTION PANEL 2020-01-14 09:55:00 César Flannery Lana [facility] LIPASE 2020-01-14 09:55:00 César Flannery Lana [facility] POCT-GLUCOSE METER 2020-01-14 05:41:00 Lulu Verde [facility] APTT 2020-01-14 05:39:00 Jerald Paz [facility] BLOOD CULTURE 2020-01-14 05:32:00 Darryn Jean [facility] BLOOD CULTURE 2020-01-14 05:31:00 Darryn Jean [facility] POCT-GLUCOSE METER 2020-01-14 03:16:00 Oscarat Lulu Lemon [facility] BLOOD GAS, ARTERIAL 2020-01-14 03:14:00 JaswantNarcisa [facility] MAGNESIUM 2020-01-14 03:14:00 Markie Wan [facility] PHOSPHORUS 2020-01-14 03:14:00 [facility] VANCOMYCIN LEV[facility], RANDOM 2020-01-14 03:14:00 Darryn Jean [facility] BASIC METABOLIC PANEL (7) 2020-01-14 03:14:00 KeniaJennifer [facility] CBC W/PLT COUNT & AUTO DIFFERENTIAL 2020-01-14 03:14:00 Pepe Michaud ose [facility] (MANUAL DIFFERENTIAL) 2020-01-14 03:14:00 Lulu Verde [facility] POCT-GLUCOSE METER 2020-01-14 01:35:00 Lulu Verde [facility] POCT-GLUCOSE METER 2020-01-14 00:15:00 Lulu Verde [facility] MAGNESIUM 2020-01-13 21:44:00 Kenia [facility] PHOSPHORUS 2020-01-13 21:44:00 Kenia [facility] BASIC METABOLIC PANEL (7) 2020-01-13 21:44:00 Kenia [facility] CALCIUM, IONIZED 2020-01-13 21:44:00 Sofia Mancuso [facility] XR CHEST 1 VIEW PORTABLE/BEDSIDE 2020-01-13 19:36:00 Puneet Jean [facility] PA INSERT CATH,ART,PERCUT,SHORTTERM 2020-01-13 19:03:26 Marcus Arriaga [facility] BLOOD GAS, ARTERIAL 2020-01-13 17:03:00 Jaswant Narcisa [facility] MAGNESIUM 2020-01-13 17:03:00 Markie Wan [facility] PHOSPHORUS 2020-01-13 17:03:00 Markie Wan [facility] POCT-GLUCOSE METER 2020-01-13 11:09:00 Oscarelsa ValentinJanes vargasgricelda Barbozachasity pepe [facility] MAGNESIUM 2020-01-13 03:20:00 Markie Wan [facility] PHOSPHORUS 2020-01-13 03:20:00 Markie Wan [facility] CALCIUM 2020-01-13 03:20:00 MaliaDevora [facility] BASIC METABOLIC PANEL (7) 2020-01-13 03:20:[address] [facility] BLOOD GAS, ARTERIAL 2020-01-13 02:41:00 JaswantNarcisa [facility] APTT 2020-01-13 02:40:00 Jerald Paz [facility] CBC W/PLT COUNT & AUTO DIFFERENTIAL 2020-01-13 02:40:00 Pepe Michaud [facility] (CELLAVISION MANUAL DIFF) 2020-01-13 02:40:00 Narcisa Michaud [facility] POCT-GLUCOSE METER 2020-01-12 18:33:00 Oscarat Lulu Lemonchasity r [facility] BLOOD GAS, ARTERIAL 2020-01-12 16:27:00 Nacrisa Michaud [facility] MAGNESIUM 2020-01-12 16:26:00 [facility] 2020-01-12 16:26:00 [facility] APTT 2020-01-12 16:26:00 Sofia Mancuso [facility] BASIC METABOLIC PANEL (7) 2020-01-12 16:26:00 Jania Smith CH I [facility] BLOOD CULTURE 2020-01-12 13:33:00 Darryn Jean [facility] BLOOD CULTURE 2020-01-12 13:32:00 Darryn Jean [facility] BLOOD CULTURE IDENTIFICATION PANEL 2020-01-12 13:32:00 Darryn Jean [facility] POCT-GLUCOSE METER 2020-01-12 12:50:00 Oscarat Lulu Lemon [facility] XR CHEST 1 VIEW PORTABLE/BEDSIDE 2020-01-12 09:56:00 Jackie Arriaga [facility] POCT-GLUCOSE METER 2020-01-12 05:59:00 Hayat Lulu Lemon [facility] BLOOD GAS, ARTERIAL 2020-01-12 03:20:00 Narcisa Michaud [facility] LACTATE DEHYDROGENASE (LDH) 2020-01-12 03:19:00 KumarMichele [facility] FERRITIN 2020-01-12 03:19:00 [facility] PROCALCITONIN 2020-01-12 03:19:00 [facility] C-REACTIVE PROTEIN 2020-01-12 03:19:00 [facility] CALCIUM, IONIZED 2020-01-12 03:19:00 JaswantNarcisa jacobo [facility] MAGNESIUM 2020-01-12 03:19:00 Markie Wan [facility] PHOSPHORUS 2020-01-12 03:19:00 Markie Wan [facility] BASIC METABOLIC PANEL (7) 2020-01-12 03:19:00 Narcisa Michaud [facility] CBC W/PLT COUNT & AUTO DIFFERENTIAL 2020-01-12 03:19:00 Jaswant, R ose [facility] (CELLAVISION MANUAL DIFF) 2020-01-12 03:19:00 Narcisa Michaud [facility] APTT 2020-01-12 02:47:00 Jerald Paz [facility] POCT-GLUCOSE METER 2020-01-12 00:06:00 Hayat Lulu Lemon [facility] APTT 2020-01-11 20:59:00 Jerald Paz [facility] POCT-GLUCOSE METER 2020-01-11 17:57:00 Lulu Verde [facility] CALCIUM, IONIZED 2020-01-11 17:18:00 Jaswant, Narcisa [facility] BLOOD GAS, ARTERIAL 2020-01-11 17:17:00 Jaswant, [facility] MAGNESIUM 2020-01-11 17:17:00 Theo Wansara [facility] PHOSPHORUS 2020-01-11 17:17:00 Jennifer [facility] BASIC METABOLIC PANEL (7) 2020-01-11 17:17:00 Jaswant, [facility] GLUCOSE, CSF 2020-01-11 17:06:00 Miranda Sharp [facility] PROTEIN, CSF 2020-01-11 17:06:00 Miranda Sharp [facility] CSF CELL COUNT W/DIFFERENTIAL 2020-01-11 17:05:00 Norma Jean [facility] MENINGITIS/ENCEPHALITIS PANEL 2020-01-11 17:05:00 Toby Jeani tito [facility] CSF CULTURE + GRAM STAIN 2020-01-11 17:04:00 Miranda Darryn [facility] CALCIUM, IONIZED 2020-01-11 12:29:00 Jaswant, [facility] POCT-GLUCOSE METER 2020-01-11 12:23:00 Lulu Verde [facility] APTT 2020-01-11 11:03:00 Sofia Mancuso [facility] BASIC METABOLIC PANEL (7) 2020-01-11 08:27:00 Jaswant, [facility] POCT-GLUCOSE METER 2020-01-11 05:11:00 Oscarat Lulu Lemon [facility] HEPATIC FUNCTION PANEL 2020-01-11 03:05:00 Nathanael Shea [facility] BLOOD GAS, ARTERIAL 2020-01-11 03:05:00 Jaswant, [facility] CALCIUM, IONIZED 2020-01-11 03:05:00 Jaswant, Narcisa [facility] MAGNESIUM 2020-01-11 03:05:00 Markie Wan [facility] PHOSPHORUS 2020-01-11 03:05:00 Markie Wan [facility] BASIC METABOLIC PANEL (7) 2020-01-11 03:05:00 Narcisa Michaud [facility] APTT 2020-01-11 03:05:[address] [facility] CREATINE KINASE (CK) 2020-01-11 03:05:00 Darryn Jean [facility] CBC W/PLT COUNT & AUTO DIFFERENTIAL 2020-01-11 03:05:00 Jaswant, Pepe david [facility] (CELLAVISION MANUAL DIFF) 2020-01-11 03:05:00 Jaswant [facility] APTT 2020-01-10 23:52:00 Mancuso, [facility] POCT-GLUCOSE METER 2020-01-10 23:49:00 Oscarat Lulu Lemon [facility] CALCIUM, IONIZED 2020-01-10 21:00:00 Jaswant, [facility] BASIC METABOLIC PANEL (7) 2020-01-10 21:00:00 JaswantNarcisa jacobo [facility] POCT-GLUCOSE METER 2020-01-10 19:25:00 Lulu Verde [facility] MR BRAIN WITHOUT IV CONTRAST 2020-01-10 18:50:00 Mancuso, [facility] APTT 2020-01-10 16:47:00 Mancuso, [facility] BLOOD GAS, ARTERIAL 2020-01-10 16:22:00 Jaswant, [facility] NM HEPATOBILIARY (HIDA) SCAN 2020-01-10 12:43:00 Darryn Jean [facility] CALCIUM, IONIZED 2020-01-10 12:43:00 Jaswant, [facility] BASIC METABOLIC PANEL (7) 2020-01-10 12:43:00 Narcisa Michaud CH, I [facility] MAGNESIUM 2020-01-10 12:43:00 Markie Wan [facility] PHOSPHORUS 2020-01-10 12:43:00 [facility] 2020-01-10 12:43:00 Sofia Mancuso [facility] POCT-GLUCOSE METER 2020-01-10 12:04:00 Markie Wan [facility] SODIUM 2020-01-10 08:37:00 Stanislav Powers [facility] POCT-GLUCOSE METER 2020-01-10 06:33:00 Markie Wan [facility] XR CHEST 1 VIEW PORTABLE/BEDSIDE 2020-01-10 04:19:00 Narcisa Michaud [facility] POCT-GLUCOSE METER 2020-01-10 03:46:00 Markie Wan [facility] APTT 2020-01-10 03:34:00 Jerald Paz [facility] LACTATE DEHYDROGENASE (LDH) 2020-01-10 03:33:00 Michele Heath [facility] FERRITIN 2020-01-10 03:33:00 [facility] PROCALCITONIN 2020-01-10 03:33:00 Michele Heath [facility] C-REACTIVE PROTEIN 2020-01-10 03:33:00 Michele Heath [facility] HEPATIC FUNCTION PANEL 2020-01-10 03:33:00 Nathanael Shea [facility] BLOOD GAS, ARTERIAL 2020-01-10 03:33:00 Narcisa Michaud [facility] CALCIUM, IONIZED 2020-01-10 03:33:00 Narcisa Michaud [facility] MAGNESIUM 2020-01-10 03:33:00 [facility] PHOS[facility]US 2020-01-10 03:33:00 Jennifer, Christopher [facility] BASIC METABOLIC PANEL (7) 2020-01-10 03:33:00 Jaswant, Narcisa [facility] CBC W/PLT COUNT & AUTO DIFFERENTIAL 2020-01-10 03:33:00 Jaswant, Pepe ose [facility] (CELLAVISION MANUAL DIFF) 2020-01-10 03:33:00 Jaswant, Narcisa [facility] POCT-GLUCOSE METER 2020-01-10 02:02:00 [facility] POCT-GLUCOSE METER 2020-01-10 00:14:00 Markie Wan [facility] BASIC METABOLIC PANEL (7) 2020-01-10 00:00:00 Devora Finley [facility] BASIC METABOLIC PANEL (7) 2020-01-09 20:09:00 Jaswant, [facility] POCT-GLUCOSE METER 2020-01-09 18:03:00 Markie Wan [facility] BLOOD GAS, ARTERIAL 2020-01-09 17:47:00 Jaswant, [facility] CALCIUM, IONIZED 2020-01-09 17:47:00 Jaswant, [facility] LACTIC ACID, ARTERIAL 2020-01-09 17:46:00 Jaswant, [facility] APTT 2020-01-09 17:46:00 [facility] US ABDOMEN LIMITED 2020-01-09 17:08:00 Jaswant, [facility] BASIC METABOLIC PANEL (7) 2020-01-09 15:18:00 Jaswant, Narcisa [facility] MAGNESIUM 2020-01-09 15:18:00 [facility] PHOSPHORUS 2020-01-09 15:18:00 [facility] POCT-GLUCOSE METER 2020-01-09 12:59:00 Markie Wan [facility] APTT 2020-01-09 10:52:00 Mancuso, [facility] CALCIUM, IONIZED 2020-01-09 08:54:00 Jaswant, [facility] PHOSPHORUS 2020-01-09 08:43:00 [facility] BASIC METABOLIC PANEL (7) 2020-01-09 08:43:00 Иван [facility] CBC W/PLT COUNT & AUTO DIFFERENTIAL 2020-01-09 08:43:00 Darryn Jean [facility] (CELLAVISION MANUAL DIFF) 2020-01-09 08:43:00 Darryn Jean [facility] POCT-GLUCOSE METER 2020-01-09 05:57:00 Markie Wan [facility] APTT 2020-01-09 04:00:00 Jerald Paz [facility] BASIC METABOLIC PANEL (7) 2020-01-09 02:25:00 Иван [facility] HEPATIC FUNCTION PANEL 2020-01-09 02:25:00 Pall MallNathanael Ibrahim [facility] BLOOD GAS, ARTERIAL 2020-01-09 02:25:00 Jaswant, [facility] CALCIUM, IONIZED 2020-01-09 02:25:00 Jaswant [facility] THROMBOELASTOGRAPH (TEG) 2020-01-09 02:25:00 Jerald Paz [facility] MAGNESIUM 2020-01-09 02:25:00 [facility] PHOSPHORUS 2020-01-09 02:25:00 Marike [facility] POCT-GLUCOSE METER 2020-01-09 00:04:00 Markie Wan [facility] APTT 2020-01-08 22:45:00 Jerald Paz [facility] CALCIUM, IONIZED 2020-01-08 19:57:00 Jaswant [facility] APTT 2020-01-08 17:24:00 Mancuso, [facility] POCT-GLUCOSE METER 2020-01-08 17:24:00 Markie Wan [facility] BASIC METABOLIC PANEL (7) 2020-01-08 16:11:00 James Lynne [facility] PHOSPHORUS 2020-01-08 16:11:00 JamesLynne cruz [facility] MAGNESIUM 2020-01-08 16:11:00 Stanislav Powers [facility] APTT 2020-01-08 12:46:00 Macnuso [facility] POCT-GLUCOSE METER 2020-01-08 12:31:00 Markie Wan [facility] BLOOD GAS, ARTERIAL 2020-01-08 10:03:00 Jadiel [facility] MAGNESIUM 2020-01-08 08:26:00 Stanislav Powers [facility] CALCIUM, IONIZED 2020-01-08 08:26:00 Parvathareddy Vishnuprichasityd ellyn [facility] PHOSPHORUS 2020-01-08 08:26:00 Devora Finley [facility] BASIC METABOLIC PANEL (7) 2020-01-08 08:26:00 James Lynne [facility] HEPATIC FUNCTION PANEL 2020-01-08 08:26:00 Nathanael Shea [facility] CBC W/PLT COUNT & AUTO DIFFERENTIAL 2020-01-08 08:26:00 [facility]ie [facility] (CELLAVISION MANUAL DIFF) 2020-01-08 08:26:00 Иван [facility] POCT-GLUCOSE METER 2020-01-08 05:20:00 Markie Wan [facility] BLOOD GAS, ARTERIAL 2020-01-08 05:14:00 Jadiel [facility] MAGNESIUM 2020-01-08 05:01:00 Michele Heath [facility] PHOSPHORUS 2020-01-08 05:01:00 Michele Heath [facility] LACTATE DEHYDROGENASE (LDH) 2020-01-08 05:01:00 Michele Heath [facility] FERRITIN 2020-01-08 05:01:00 Michele Heath [facility] PROCALCITONIN 2020-01-08 05:01:00 Michele Heath [facility] C-REACTIVE PROTEIN 2020-01-08 05:01:00 KumarMichele [facility] COMPREHENSIVE METABOLIC PANEL 2020-01-08 05:01:00 Lynne Ramirez [facility] THROMBOELASTOGRAPH (TEG) 2020-01-08 05:01:00 Jerald Paz [facility] APTT 2020-01-08 05:01:00 Mancuso, [facility] POCT-GLUCOSE METER 2020-01-07 23:51:00 Markie Wan [facility] MAGNESIUM 2020-01-07 23:40:00 Stanislav Powers [facility] BASIC METABOLIC PANEL (7) 2020-01-07 23:40:00 Lynne Ramirez CH I [facility] BLOOD GAS, ARTERIAL 2020-01-07 22:50:00 [facility] CALCIUM, IONIZED 2020-01-07 22:49:00 Navneet Montoya [facility] APTT 2020-01-07 22:49:00 Mancuso, [facility] AMMONIA 2020-01-07 18:25:00 Mancuso, [facility] POCT-GLUCOSE METER 2020-01-07 17:07:00 Markie Wan [facility] TSH/FREE T4 IF INDICATED 2020-01-07 17:06:00 Mancuso, [facility] BLOOD GAS, ARTERIAL 2020-01-07 15:22:00 [facility] BASIC METABOLIC PANEL (7) 2020-01-07 15:22:00 Lynne Ramirez CH [facility] PHOSPHORUS 2020-01-07 15:22:00 Lynne Ramirez [facility] CALCIUM, IONIZED 2020-01-07 15:22:00 Parvathareddy, Vishnupriyad ellyn [facility] HEMOGLOBIN AND HEMATOCRIT 2020-01-07 15:22:00 MancusoBriannamerasabino [facility] CBC W/PLT COUNT & AUTO DIFFERENTIAL 2020-01-07 15:22:00 [facility] IN COMA/SLEEP ONLY 2020-01-07 14:31:00 Bartolome [facility] POCT-GLUCOSE METER 2020-01-07 11:15:00 Markie Wan [facility] MAGNESIUM 2020-01-07 10:24:00 Stanislav Powers [facility] CALCIUM, IONIZED 2020-01-07 10:24:00 Parvathareddy, Vishnupriyad ellyn [facility] PHOSPHORUS 2020-01-07 10:24:00 Devora Finley [facility] BLOOD GAS, ARTERIAL 2020-01-07 10:24:00 Brenda Duvall [facility] BASIC METABOLIC PANEL (7) 2020-01-07 10:24:00 Lynne Ramirez [facility] XR CHEST 1 VIEW PORTABLE/BEDSIDE 2020-01-07 07:52:00 Brianna Mancusomera [facility] APTT 2020-01-07 06:05:00 Brianna [facility] caresabino [facility] POCT-GLUCOSE METER 2020-01-07 05:49:00 Markie Wan [facility] MAGNESIUM 2020-01-07 03:50:00 [facility] PHOSPHORUS 2020-01-07 03:50:00 Michele Heath [facility] BLOOD GAS, ARTERIAL 2020-01-07 03:50:00 Jadiel, [facility] COMPREHENSIVE METABOLIC PANEL 2020-01-07 03:50:00 Lynne Ramirez [facility] HEPATIC FUNCTION PANEL 2020-01-07 03:50:00 [facility], [facility] TROPONIN I 2020-01-07 03:50:00 Mancuso, [facility] LACTATE DEHYDROGENASE (LDH) 2020-01-07 03:50:00 Judah Aquino [facility] CBC W/PLT COUNT & AUTO DIFFERENTIAL 2020-01-07 03:50:00 ShaunnaAugusta [facility] (CELLAVISION MANUAL DIFF) 2020-01-07 03:50:00 Dom Maza [facility] BLOOD CULTURE 2020-01-07 02:23:00 [facility], [facility] CALCIUM, IONIZED 2020-01-07 00:28:00 AdanathHeather freemanupriwhitney ellyn [facility] APTT 2020-01-07 00:28:00 Mancuso, [facility] POCT-GLUCOSE METER 2020-01-07 00:28:00 Markie Wan [facility] URINE CULTURE 2020-01-06 22:36:00 Mancuso, [facility] URINALYSIS W/ REFLEX URINE CULTURE 2020-01-06 22:36:00 [facility], Briannar [facility] BLOOD GAS, ARTERIAL 2020-01-06 22:06:00 Katina [facility] BASIC METABOLIC PANEL (7) 2020-01-06 22:05:00 Lynne Ramirez [facility] BLOOD CULTURE 2020-01-06 19:54:00 Mancuso, [facility] SPUTUM CULTURE + GRAM STAIN 2020-01-06 19:54:00 Mancuso, [facility] OXYGEN SATURATION, MEASURED 2020-01-06 19:53:00 Judah Aquion [facility] POCT-GLUCOSE METER 2020-01-06 18:57:00 Markie Wan [facility] LACTIC ACID, ARTERIAL 2020-01-06 17:25:00 Mancuso, [facility] APTT 2020-01-06 17:25:00 Mancuso, [facility] CBC W/PLT COUNT & AUTO DIFFERENTIAL 2020-01-06 17:25:00 Mancuso, [facility] (CELLAVISION MANUAL DIFF) 2020-01-06 17:25:00 Mancuso, [facility] BLOOD GAS, ARTERIAL 2020-01-06 16:11:00 Jadiel [facility] BASIC METABOLIC PANEL (7) 2020-01-06 16:11:00 JamesLynne [facility] PHOSPHORUS 2020-01-06 16:11:00 James [facility] CALCIUM, IONIZED 2020-01-06 16:11:00 Parvathareddy, Vishnupriyad ellynCol[facility] MAGNESIUM 2020-01-06 16:11:00 Stanislav Powers [facility] COMPREHENSIVE METABOLIC PANEL 2020-01-06 16:11:00 Mancuso, [facility] TROPONIN I 2020-01-06 16:11:00 Mancuso, [facility] CT BRAIN WITHOUT IV CONTRAST PORTABLE 2020-01-06 14:57:00 MancusoGricelda mengCentinela [facility] BLOOD GAS, ARTERIAL 2020-01-06 11:53:00 Jadiel [facility] POCT-GLUCOSE METER 2020-01-06 11:47:00 Markie Wan [facility] APTT 2020-01-06 08:14:00 Mancuso, [facility] CALCIUM, IONIZED 2020-01-06 08:13:00 Parvathareddy, Vishnupriyad ellyn [facility] MAGNESIUM 2020-01-06 08:12:00 [facility]US 2020-01-06 08:12:00 Devora Finley [facility] BASIC METABOLIC PANEL (7) 2020-01-06 08:12:00 Lynne Ramirez CH [facility] POCT-GLUCOSE METER 2020-01-06 06:11:00 Markie Wan [facility] MAGNESIUM 2020-01-06 04:11:00 Michele Heath [facility] PHOSPHORUS 2020-01-06 04:11:00 [facility] LACTATE DEHYDROGENASE (LDH) 2020-01-06 04:11:00 KumarMichele [facility] FERRITIN 2020-01-06 04:11:00 Kumar Michele [facility] PROCALCITONIN 2020-01-06 04:11:00 [facility] C-REACTIVE PROTEIN 2020-01-06 04:11:00 [facility] Hospital[facility] C [facility] BLOOD GAS, ARTERIAL 2020-01-06 04:11:00 Brenda Duvall [facility] COMPREHENSIVE METABOLIC PANEL 2020-01-06 04:11:00 Lynne Ramirez [facility] HEPATIC FUNCTION PANEL 2020-01-06 04:11:00 [facility], [facility] CBC W/PLT COUNT & AUTO DIFFERENTIAL 2020-01-06 04:11:00 Jose Antonio hbeRico aviles [facility] APTT 2020-01-06 01:00:00 Mancuso, [facility] BASIC METABOLIC PANEL (7) 2020-01-06 00:01:00 Lynne Ramirez [facility] CALCIUM, IONIZED 2020-01-06 00:01:00 Heather Montoyaupriwhitney ellyn [facility] PHOSPHORUS 2020-01-06 00:01:00 Mancuso, [facility] POCT-GLUCOSE METER 2020-01-06 00:01:00 Markie Wan [facility] BLOOD GAS, ARTERIAL 2020-01-05 22:17:00 [facility]iel [facility] APTT 2020-01-05 18:29:00 Sofia Mancuso [facility] POCT-GLUCOSE METER 2020-01-05 17:45:00 Markie Wan [facility] MAGNESIUM 2020-01-05 16:42:00 Stanislav Powers [facility] PHOSPHORUS 2020-01-05 16:42:00 Devora Finley [facility] BASIC METABOLIC PANEL (7) 2020-01-05 16:42:00 Иван Wan [facility] CALCIUM, IONIZED 2020-01-05 16:41:00 Feliciaaredjessica, Jennyhnupriyad ellyn [facility] BLOOD GAS, ARTERIAL 2020-01-05 15:03:00 Jadiel [facility] BASIC METABOLIC PANEL (7) 2020-01-05 12:24:00 Lynne Ramirez CH [facility] PHOSPHORUS 2020-01-05 12:24:00 Lynne Ramirez [facility] MAGNESIUM 2020-01-05 12:24:00 Markie Wan [facility] POCT-GLUCOSE METER 2020-01-05 12:11:00 Markie Wan [facility] MAGNESIUM 2020-01-05 11:37:00 Stanislav Powers [facility] PHOSPHORUS 2020-01-05 11:37:00 Devora Finley [facility] BASIC METABOLIC PANEL (7) 2020-01-05 11:37:00 Anish Ramirezine [facility] CALCIUM, IONIZED 2020-01-05 09:54:00 Parvathareddy, Vishnupriyad ellyn [facility] POCT-GLUCOSE METER 2020-01-05 06:51:00 Markie Wan [facility] BLOOD GAS, ARTERIAL 2020-01-05 03:14:00 Jadiel [facility] PT/APTT 2020-01-05 03:14:00 ShaunnaDom bansal [facility] APTT 2020-01-05 03:14:00 [facility]usoBriannaregional [facility] caresabino [facility] PHOSPHORUS 2020-01-05 03:13:00 Devora Finley [facility] MAGNESIUM 2020-01-05 03:13:00 Michele Heath [facility] COMPREHENSIVE METABOLIC PANEL 2020-01-05 03:13:00 [facility]EL 2020-01-05 03:13:00 MancusoBrainna mengregional hospital for respiratory and [facility] caresabino [facility] CBC W/PLT COUNT & AUTO DIFFERENTIAL 2020-01-05 03:13:00 Christianne Huang [facility] POCT-GLUCOSE METER 2020-01-05 00:27:00 Markie Wan [facility] BLOOD GAS, ARTERIAL 2020-01-04 22:30:00 Jadiel [facility] MAGNESIUM 2020-01-04 22:20:00 Stanislav Powers [facility] BASIC METABOLIC PANEL (7) 2020-01-04 22:20:00 Lynne Ramirez [facility] CALCIUM, IONIZED 2020-01-04 22:20:00 ParvathareddyJennyhnupriyad ellyn [facility] POCT-GLUCOSE METER 2020-01-04 18:01:00 Markie Wan [facility] BLOOD GAS, ARTERIAL 2020-01-04 15:53:00 Jadiel [facility] BASIC METABOLIC PANEL (7) 2020-01-04 15:53:00 Lynne Ramirez [facility] PHOSPHORUS 2020-01-04 15:53:00 [facility] CALCIUM, IONIZED 2020-01-04 15:53:00 Parvathareddy, Vishnupriyad ellyn [facility] POCT-GLUCOSE METER 2020-01-04 12:49:00 Markie Wan [facility] BLOOD GAS, ARTERIAL 2020-01-04 10:36:00 Jadiel [facility] BASIC METABOLIC PANEL (7) 2020-01-04 10:35:00 Lynne Ramirez [facility] CMV PCR, QUANTITATIVE 2020-01-04 10:35:00 Costa Strauss [facility] XR ABDOMEN / KUB 1 VIEW 2020-01-04 09:08:00 Mancuso, [facility] XR CHEST 1 VIEW PORTABLE/BEDSIDE 2020-01-04 08:36:00 Mancuso, [facility] BLOOD GAS, ARTERIAL 2020-01-04 08:13:00 Mancuso, [facility] BLOOD GAS, ARTERIAL 2020-01-04 04:41:00 Leatha [facility] MAGNESIUM 2020-01-04 04:39:00 KumarMichele [facility] PHOSPHORUS 2020-01-04 04:39:00 Kumar Michele [facility] LACTATE DEHYDROGENASE (LDH) 2020-01-04 04:39:00 [facility] FERRITIN 2020-01-04 04:39:00 KumarMichele [facility] PROCALCITONIN 2020-01-04 04:39:00 Kumar Michele [facility] C-REACTIVE PROTEIN 2020-01-04 04:39:00 [facility] LACTIC ACID, ARTERIAL 2020-01-04 04:39:00 Lynne Ramirez [facility] COMPREHENSIVE METABOLIC PANEL 2020-01-04 04:39:00 JamesLynne [facility] HEPATIC FUNCTION PANEL 2020-01-04 04:39:00 Mancuso, [facility] APTT 2020-01-04 04:39:00 Mancuso, [facility] CALCIUM, IONIZED 2020-01-04 04:39:00 Parvathareddy, Vishnupriyad ellyn [facility] CBC W/PLT COUNT & AUTO DIFFERENTIAL 2020-01-04 04:39:00 Christianne Huang jacquelinjose Abad [facility] MAGNESIUM 2020-01-03 21:47:00 Gio Stanislav Maldonado [facility] BLOOD GAS, ARTERIAL 2020-01-03 21:47:00 Brenda Duvall [facility] BASIC METABOLIC PANEL (7) 2020-01-03 21:47:00 Anish Ramirezine CH [facility] CALCIUM, IONIZED 2020-01-03 21:47:00 Parvathareddy, Vishnupriyad ellyn [facility] APTT 2020-01-03 21:47:00 Brianna [facility] SPUTUM CULTURE + GRAM STAIN 2020-01-03 18:39:00 Aurora Copeland [facility] POCT-GLUCOSE METER 2020-01-03 18:04:00 Markie Wan [facility] BLOOD CULTURE 2020-01-03 16:55:00 Aurora Copeland [facility] BLOOD CULTURE IDENTIFICATION PANEL 2020-01-03 16:55:00 Christ Copeland [facility] BLOOD GAS, ARTERIAL 2020-01-03 16:15:00 Brianna [facility] LACTIC ACID, ARTERIAL 2020-01-03 16:15:00 Lynne Ramirez [facility] CALCIUM, IONIZED 2020-01-03 16:15:00 Parvathareddy, Vishnupriyad ellyn [facility] BASIC METABOLIC PANEL (7) 2020-01-03 16:14:00 Anish Ramirezine CH I [facility] PHOSPHORUS 2020-01-03 16:14:00 James Lynne [facility] APTT 2020-01-03 16:14:00 MancusoBrianna mengCentinela [facility] POCT-GLUCOSE METER 2020-01-03 13:20:00 Markie Wan ugh [facility] BLOOD GAS, ARTERIAL 2020-01-03 11:17:00 Brenda Duvall [facility] CALCIUM, IONIZED 2020-01-03 11:14:00 Markie Wan h [facility] VANCOMYCIN LEVEL, TROUGH 2020-01-03 11:13:00 Edie Eduardo [facility] BASIC METABOLIC PANEL (7) 2020-01-03 09:37:00 Lynne Ramirez [facility] CBC (HEMOGRAM ONLY) 2020-01-03 09:37:00 Mancuso, [facility] APTT 2020-01-03 09:37:00 Mancuso, [facility] HEPARIN ANTIBODY 2020-01-03 09:37:00 Mancuso, [facility] MAGNESIUM 2020-01-03 08:20:00 Stanislav [facility] CALCIUM, IONIZED 2020-01-03 08:20:00 Navneet Montoya [facility] APTT 2020-01-03 06:11:00 Mancuso, [facility] POCT-GLUCOSE METER 2020-01-03 05:32:00 Benita Marroquin [facility] BASIC METABOLIC PANEL (7) 2020-01-03 03:22:00 Mancuso, [facility] MAGNESIUM 2020-01-03 03:22:00 Michele Heath [facility] PHOSPHORUS 2020-01-03 03:22:00 Michele Heath [facility] BLOOD GAS, ARTERIAL 2020-01-03 03:22:00 [facility]ACT[facility], ART[facility] 2020-01-03 03:22:00 Lynne Ramirez [facility] COMPREHENSIVE METABOLIC PANEL 2020-01-03 03:22:00 [facility]CTION PANEL 2020-01-03 03:22:00 Mancuso, [facility] THROMBOELASTOGRAPH (TEG) 2020-01-03 03:22:00 Andry Dasilva [facility] CBC W/PLT COUNT & AUTO DIFFERENTIAL 2020-01-03 03:22:00 Christianne Huang [facility] XR CHEST 1 VIEW PORTABLE/BEDSIDE 2020-01-03 01:14:00 Foreign Huang [facility] POCT-GLUCOSE METER 2020-01-02 23:31:00 Benita Marroquin [facility] APTT 2020-01-02 23:24:00 Mancuso, [facility] BLOOD GAS, ARTERIAL 2020-01-02 21:25:00 Jadiel [facility] CALCIUM, IONIZED 2020-01-02 21:25:00 Navneet Montoya [facility] MAGNESIUM 2020-01-02 21:24:00 Stanislav Powers [facility] BASIC METABOLIC PANEL (7) 2020-01-02 21:24:00 Lynne Ramirez [facility] I [facility] PHOSPHORUS 2020-01-02 21:24:00 Benita Marroquin [facility] BLOOD GAS, ARTERIAL 2020-01-02 18:46:00 Mancuso, [facility] CALCIUM, IONIZED 2020-01-02 18:45:00 [facility] TRANSFUSION SERVICE REPORT - SCAN 2020-01-02 18:01:29 Provid er, Default Scanning [facility] POCT-GLUCOSE METER 2020-01-02 16:57:00 Benita Marroquin [facility] APTT 2020-01-02 16:51:00 Mancuso, [facility] BLOOD GAS, ARTERIAL 2020-01-02 15:07:00 Jadiel [facility] BASIC METABOLIC PANEL (7) 2020-01-02 15:06:00 Lynne Ramirez CH I [facility] LACTIC ACID, ARTERIAL 2020-01-02 15:06:00 James, Lynne [facility] PHOSPHORUS 2020-01-02 15:06:00 JamesLynne [facility] CALCIUM, IONIZED 2020-01-02 15:06:00 Parvathareddy, Vishnupriyad ellyn [facility] APTT 2020-01-02 15:06:[address] [facility] MAGNESIUM 2020-01-02 15:06:00 Mancuso, [facility] POCT-GLUCOSE METER 2020-01-02 11:30:00 Benita Marroquin [facility] BLOOD GAS, ARTERIAL 2020-01-02 11:26:00 Cara Gandeevillevijaya Alvarado [facility] HEPATITIS A ANTIBODY, IGG 2020-01-02 09:04:00 Janina Sarkar [facility] XR CHEST 1 VIEW PORTABLE/BEDSIDE 2020-01-02 08:39:00 Mancuso, [facility] BLOOD GAS, ARTERIAL 2020-01-02 08:15:00 Brenda Duvall [facility] MAGNESIUM 2020-01-02 08:09:00 Stanislav Powers [facility] BASIC METABOLIC PANEL (7) 2020-01-02 08:09:00 Lynne Ramirez CH [facility] PHOSPHORUS 2020-01-02 08:09:[address] [facility] CALCIUM, IONIZED 2020-01-02 08:08:00 Parvyukidy, Jennyhnupriyad ellyn [facility] APTT 2020-01-02 08:08:00 Mancuso, [facility] POCT-GLUCOSE METER 2020-01-02 06:39:00 Benita Marroquin [facility] BLOOD GAS, ARTERIAL 2020-01-02 04:31:00 [facility] 2020-01-02 04:30:00 Michele Heath [facility] PHOSPHORUS 2020-01-02 04:30:00 Michele Heath [facility] LACTATE DEHYDROGENASE (LDH) 2020-01-02 04:30:00 Kumar, Michele Munroe [facility] FERRITIN 2020-01-02 04:30:00 KumarMichele Ludwig [facility] PROCALCITONIN 2020-01-02 04:30:00 [facility], Michele Ludwig [facility] C-REACTIVE PROTEIN 2020-01-02 04:30:00 [facility] LACTIC ACID, ARTERIAL 2020-01-02 04:30:00 Lynne Ramirez [facility] COMPREHENSIVE METABOLIC PANEL 2020-01-02 04:30:00 Lynne Ramirez [facility] HEPATIC FUNCTION PANEL 2020-01-02 04:30:00 Brianna [facility] cares[facility] CBC W/PLT COUNT & AUTO DIFFERENTIAL 2020-01-02 04:30:00 Christianne Nuñez [facility] CALCIUM, IONIZED 2020-01-02 00:45:00 Parvathareddy, Vishnupriyad ellyn [facility] APTT 2020-01-02 00:45:[address] [facility] POCT-GLUCOSE METER 2020-01-02 00:38:00 Benita Marroquin [facility] PREPARE LEUKO-REDUCED RBC 2020-01-01 23:54:00 Nova Monzon Co nstance [facility] BLOOD GAS, ARTERIAL 2020-01-01 22:27:00 Brenda Duvall [facility] BASIC METABOLIC PANEL (7) 2020-01-01 22:27:00 Lynne Ramirez [facility] POCT-GLUCOSE METER 2020-01-01 20:24:00 Benita Marroquin [facility] MAGNESIUM 2020-01-01 20:21:00 Stanislav Powers [facility] TRANSFUSION SERVICE REPORT - SCAN 2020-01-01 18:02:43 Provid er, Default Scanning [facility] BLOOD GAS, ARTERIAL 2020-01-01 17:41:00 Benita Marroquin [facility] APTT 2020-01-01 17:33:[address] [facility] POCT-GLUCOSE METER 2020-01-01 17:31:00 Benita Marroquin [facility] CBC W/PLT COUNT & AUTO DIFFERENTIAL 2020-01-01 16:22:00 JamesXavier [facility] BLOOD GAS, ARTERIAL 2020-01-01 16:19:00 Jadiel [facility] BASIC METABOLIC PANEL (7) 2020-01-01 16:19:00 Lynne Ramirez [facility] LACTIC ACID, ARTERIAL 2020-01-01 16:19:00 Lynne Ramirze [facility] PHOSPHORUS 2020-01-01 16:19:00 James [facility] CALCIUM, IONIZED 2020-01-01 16:19:00 Parvathareddy, Vishnupriyad ellyn [facility] POCT-GLUCOSE METER 2020-01-01 12:06:00 Benita Marroquin [facility] APTT 2020-01-01 12:04:[address] [facility] XR ABDOMEN / KUB 1 VIEW 2020-01-01 11:42:[address] [facility] BLOOD GAS, ARTERIAL 2020-01-01 10:17:00 Jadiel [facility] BASIC METABOLIC PANEL (7) 2020-01-01 10:17:00 Lynne Ramirez [facility] POCT-GLUCOSE METER 2020-01-01 10:12:00 Benita Marroquin [facility] POCT-GLUCOSE METER 2020-01-01 08:10:00 Benita Marroquin [facility] CALCIUM, IONIZED 2020-01-01 08:04:00 Parvathareddy, Vishnupriyad ellyn [facility] MAGNESIUM 2020-01-01 08:03:00 Stanislav [facility] CBC W/PLT COUNT & AUTO DIFFERENTIAL 2020-01-01 08:03:00 Mancuso, Brianna [facility] POCT-GLUCOSE METER 2020-01-01 06:55:00 Benita Marroquin [facility] APTT 2020-01-01 05:53:00 Mancuso, [facility] BLOOD GAS, ARTERIAL 2020-01-01 05:53:00 Nova Monzon [facility] PROTHROMBIN TIME/INR 2020-01-01 05:53:[address] [facility] POCT-GLUCOSE METER 2020-01-01 05:52:00 Cara Gandeevillevijaya Alvarado [facility] POCT-GLUCOSE METER 2020-01-01 05:07:00 Benita Marroquin [facility] POCT-GLUCOSE METER 2020-01-01 03:56:00 [facility] RLibby [facility] MAGNESIUM 2020-01-01 03:53:00 Michele Heath Ludwig [facility] PHOSPHORUS 2020-01-01 03:53:00 Michele Heath [facility] BLOOD GAS, ARTERIAL 2020-01-01 03:53:00 Brenda Duvall [facility] LACTIC ACID, ARTERIAL 2020-01-01 03:53:00 JamesLynne [facility] COMPREHENSIVE METABOLIC PANEL 2020-01-01 03:53:00 [facility]EL 2020-01-01 03:53:00 Mancuso, [facility] CALCIUM, IONIZED 2020-01-01 03:53:00 Mancuso, [facility] CBC W/PLT COUNT & AUTO DIFFERENTIAL 2020-01-01 03:53:00 Augusta Maza [facility] IMMUNOGLOBULIN M (IGM) 2020-01-01 03:52:00 Guera Bryant [facility] HAPTOGLOBIN 2020-01-01 03:52:00 Sofia Mancuso [facility] POCT-GLUCOSE METER 2020-01-01 03:04:00 Benita Marroquin [facility] TRANSFUSE LEUKO-REDUCED RED BLOOD CELLS 2020-01-01 02:34:38 Nova Monzon [facility] POCT-GLUCOSE METER 2020-01-01 02:01:00 Benita Marroquin [facility] POCT-GLUCOSE METER 2020-01-01 01:05:00 Benita Marroquin [facility] APTT 2020-01-01 00:06:00 Brianna [facility] POCT-GLUCOSE METER 2020-01-01 00:06:00 Benita Marroquin [facility] PREPARE LEUKO-REDUCED RBC 2019 23:54:00 Nova Monzon [facility] HEMOGLOBIN AND HEMATOCRIT 2019 22:37:00 Nova Monzon [facility] CALCIUM, IONIZED 2019 22:02:00 Navneet Montoya [facility] MAGNESIUM 2019 20:59:00 Stanislav [facility] BLOOD GAS, ARTERIAL 2019 20:59:00 Brenda Duvall [facility] BASIC METABOLIC PANEL (7) 2019 20:59:00 Lynne Ramirez CH I [facility] TRANSFUSION SERVICE REPORT - SCAN 2019 18:02:47 Provid er, Default Scanning [facility] POCT-GLUCOSE METER 2019 17:54:00 Benita Marroquin [facility] APTT 2019 17:46:00 Sofia Mancuso [facility] MISCELLANEOUS LAB ORDER 2019 16:48:00 Jorge Higgins [facility] LACTIC ACID, ARTERIAL 2019 16:32:00 James [facility] BASIC METABOLIC PANEL (7) 2019 16:31:00 James Lynne [facility] PHOSPHORUS 2019 16:31:00 James [facility] CALCIUM, IONIZED 2019 16:31:00 Parvathareddy Vishnupriyad ellyn [facility] HEMOGLOBIN AND HEMATOCRIT 2019 16:31:00 MancusoBrianna mengreesabino [facility] BLOOD GAS, ARTERIAL 2019 16:30:00 Brenda Duvall [facility] POCT-GLUCOSE METER 2019 16:10:00 Benita Marroquin [facility] DRUG SCREEN, URINE, COMPREHENSIVE 2019 15:00:00 Susan Bryant [facility] IRON, TIBC, % SAT. (WITHOUT FERRITIN) 2019 14:51:00 Manny [facility] ANTI-NUCLEAR ANTIBODY (RAMU) 2019 14:50:00 Manny [facility] HEPATITIS C ANTIBODY 2019 14:50:00 Manny [facility] HEPATITIS B SURFACE ANTIGEN 2019 14:50:00 Manny [facility] HEPATITIS B SURFACE ANTIBODY 2019 14:50:00 Manny [facility] HEPATITIS B CORE ANTIBODY, TOTAL 2019 14:50:00 Manny [facility] HEPATITIS A ANTIBODY, IGM 2019 14:50:00 Manny, [facility] POCT-GLUCOSE METER 2019 14:14:00 Benita Marroquin [facility] POCT-GLUCOSE METER 2019 13:11:00 [facility] ACTIN (SMOOTH MUSCLE) ANTIBODY, IGG 2019 13:07:00 [facility] [id number]\\, SERUM 2019 13:07:00 [facility] ANTI-MITOCHONDRIAL AB, REFLEX TO TITER 2019 13:07:00 [facility] CERULOPLASMIN 2019 13:07:00 [facility], [facility] TOXICOLOGY SCREEN, SERUM 2019 13:07:00 [facility], [facility] SALICYLATE LEVEL 2019 13:07:00 [facility] MITOCHONDRIAL AB SCREEN 2019 13:07:00 [facility] MITOCHONDRIAL AB TITER 2019 13:07:00 [facility] POCT-GLUCOSE METER 2019 12:20:00 Cara [facility] POCT-GLUCOSE METER 2019 11:14:00 Cara [facility] BASIC METABOLIC PANEL (7) 2019 10:36:00 Lynne Ramirez [facility] I [facility] BILIRUBIN, DIRECT 2019 10:36:00 Mancuso, [facility] B-TYPE NATRIURETIC FACTOR (BNP) 2019 10:36:00 Mancuso, [facility] APTT 2019 10:36:00 Mancuso, [facility] BLOOD GAS, ARTERIAL 2019 10:35:00 Brenda Duvall [facility] HEMOGLOBIN AND HEMATOCRIT 2019 09:25:00 Nova Monzon [facility] MRSA SCREEN 2019 09:19:00 JaswantNarcisa jacobo [facility] POCT-GLUCOSE METER 2019 09:10:00 Benita Marroquin [facility] MAGNESIUM 2019 08:12:00 Stanislav Powers [facility] TROPONIN I 2019 08:12:00 Sofia Mancuso [facility] POCT-GLUCOSE METER 2019 08:09:00 Benita Marroquin [facility] POCT-GLUCOSE METER 2019 07:34:00 Benita Marroquin [facility] POCT-GLUCOSE METER 2019 07:03:00 Benita Marroquin [facility] POCT-GLUCOSE METER 2019 04:56:00 Benita Marroquin [facility] BLOOD CULTURE 2019 04:12:00 Brianna [facility] cares[facility] BLOOD GAS, ARTERIAL 2019 03:45:00 Brenda Duvall [facility] MAGNESIUM 2019 03:44:00 Michele Heath [facility] PHOSPHORUS 2019 03:44:00 [facility] LACTATE DEHYDROGENASE (LDH) 2019 03:44:00 Michele Heath [facility] FERRITIN 2019 03:44:00 Michele Heath [facility] PROCALCITONIN 2019 03:44:00 Michele Heath [facility] C-REACTIVE PROTEIN 2019 03:44:00 Michele Heath [facility] LACTIC ACID, ARTERIAL 2019 03:44:00 Lynne Ramirez [facility] COMPREHENSIVE METABOLIC PANEL 2019 03:44:00 Lynne Ramirez [facility] HEPATIC FUNCTION PANEL 2019 03:44:00 Bartolome [facility] APTT 2019 03:44:[address] [facility] CBC W/PLT COUNT & AUTO DIFFERENTIAL 2019 03:44:00 Ilya ms Nova Dickson [facility] (CELLAVISION MANUAL DIFF) 2019 03:44:00 Nova Monzon nstanryan [facility] BLOOD CULTURE 2019 03:42:00 Mancuso, [facility] POCT-GLUCOSE METER 2019 02:56:00 Benita Marroquin [facility] TRANSFUSE LEUKO-REDUCED RED BLOOD CELLS 2019 02:44:03 Nova Monzon [facility] SPUTUM CULTURE + GRAM STAIN 2019 02:38:[address] [facility] URINALYSIS W/ REFLEX URINE CULTURE 2019 02:38:00 Albaro Mancuso [facility] POCT-GLUCOSE METER 2019 01:32:00 Benita Marroquin [facility] POCT-GLUCOSE METER 2019 00:33:00 Benita Marroquin [facility] POCT-GLUCOSE METER 2019 00:01:00 Benita Marroquin [facility] COMPREHENSIVE METABOLIC PANEL 2019-12-30 23:42:00 Wagner Monzon [facility] HAPTOGLOBIN 2019-12-30 23:37:00 Nova Monzon [facility] FIBRINOGEN 2019-12-30 23:37:00 Nova Monzon [facility] D-DIMER 2019-12-30 23:37:00 Nova Monzon [facility] PROTHROMBIN TIME/INR 2019-12-30 23:37:00 Nova Monzon [facility] POCT-GLUCOSE METER 2019-12-30 23:35:00 Benita Marroquin [facility] TYPE AND SCREEN, AUTOMATED 2019-12-30 21:45:00 Nova Monzon [facility] HEMOGLOBIN AND HEMATOCRIT 2019-12-30 21:28:00 Sofia Mancuso [facility] MAGNESIUM 2019-12-30 21:00:00 Stanislav Powers [facility] BLOOD GAS, ARTERIAL 2019-12-30 21:00:00 Brenda Duvall [facility] BASIC METABOLIC PANEL (7) 2019-12-30 21:00:00 Lynne Ramirez [facility] POCT-GLUCOSE METER 2019-12-30 20:59:00 Benita Marroquin [facility] 2D ECHO W/ DOPPLER (CW/PW/COLOR) 2019-12-30 20:26:57 Narcisa Michaud [facility] POCT-GLUCOSE METER 2019-12-30 19:16:00 Benita Marroquin [facility] POCT-GLUCOSE METER 2019-12-30 18:15:00 Benita Marroquin [facility] HEMOGLOBIN AND HEMATOCRIT 2019-12-30 16:24:00 Benita Marroquin [facility] POCT-GLUCOSE METER 2019-12-30 16:17:00 Benita Marroquin [facility] BASIC METABOLIC PANEL (7) 2019-12-30 16:03:00 Lynne Ramirez [facility] LACTIC ACID, ARTERIAL 2019-12-30 16:03:00 Lynne Ramirez [facility] PHOSPHORUS 2019-12-30 16:03:00 Lynne Ramirez [facility] LIPASE 2019-12-30 16:03:00 Benita Marroquin [facility] BLOOD GAS, ARTERIAL 2019-12-30 16:01:00 [facility] PO[facility]SE METER 2019-12-30 13:05:00 Benita Marroquin [facility] POCT-GLUCOSE METER 2019-12-30 11:40:00 Benita Marroquin [facility] POCT-GLUCOSE METER 2019-12-30 10:28:00 Benita Marroquin [facility] BLOOD GAS, ARTERIAL 2019-12-30 10:01:00 Brenda Duvall [facility] BASIC METABOLIC PANEL (7) 2019-12-30 10:01:00 Lynne Ramirez CH I [facility] US ABDOMEN LIMITED 2019-12-30 09:42:00 Jorge Higgins [facility] POCT-GLUCOSE METER 2019-12-30 09:01:00 Benita Marroquin [facility] POCT-GLUCOSE METER 2019-12-30 07:44:00 Benita Marroquin [facility] APTT 2019-12-30 07:40:00 Sofia Mancuso [facility] MAGNESIUM 2019-12-30 07:39:00 Stanislav Powers [facility] POCT-GLUCOSE METER 2019-12-30 06:52:00 Lulu Alfaro C [facility] POCT-GLUCOSE METER 2019-12-30 06:36:00 Lulu Alfaro Charles C [facility] POCT-GLUCOSE METER 2019-12-30 05:23:00 Lulu Alfaro Charles C [facility] POCT-GLUCOSE METER 2019-12-30 04:19:00 DominicJanes curield Charles C [facility] POCT-GLUCOSE METER 2019-12-30 02:29:00 Lulu Alfaro Charles C [facility] CALCIUM, IONIZED 2019-12-30 02:19:00 [facility] BLOOD [facility], ARTERIAL 2019-12-30 02:17:00 Brenda Duvall [facility] MAGNESIUM 2019-12-30 02:16:00 Michele Heath [facility] PHOSPHORUS 2019-12-30 02:16:00 Michele Heath [facility] LACTIC ACID, ARTERIAL 2019-12-30 02:16:00 JamesLynne cruz [facility] COMPREHENSIVE METABOLIC PANEL 2019-12-30 02:16:00 Lynne Ramirez [facility] CBC W/PLT COUNT & AUTO DIFFERENTIAL 2019-12-30 02:16:00 Augusta Maza [facility] (CELLAVISION MANUAL DIFF) 2019-12-30 02:16:00 Dom Maza [facility] POCT-GLUCOSE METER 2019-12-30 01:28:00 Lulu Alfaro Charles [facility] APTT 2019-12-30 01:26:00 [facility] POCT-GLUCOSE METER 2019-12-29 23:45:00 DominicJanes curield Charles C [facility] POCT-GLUCOSE METER 2019-12-29 22:00:00 DominicAurelio curielmad Charles [facility] BLOOD GAS, ARTERIAL 2019-12-29 21:50:00 Brenda Duvall [facility] MAGNESIUM 2019-12-29 21:49:00 Stanislav Powers [facility] BASIC METABOLIC PANEL (7) 2019-12-29 21:49:00 Lynne Ramirez [facility] APTT 2019-12-29 19:00:00 [facility]Brianna [facility] POCT-GLUCOSE METER 2019-12-29 19:00:00 Dominic, Lawson Charles C [facility] POCT-GLUCOSE METER 2019-12-29 18:11:00 DominicTetoLawson Charles C [facility] POCT-GLUCOSE METER 2019-12-29 17:34:00 Dominic, Lawson Charles C [facility] POCT-GLUCOSE METER 2019-12-29 16:14:00 Lulu Alfaro Charles [facility] BLOOD GAS, ARTERIAL 2019-12-29 15:18:00 Leatha Duvalli [facility] BASIC METABOLIC PANEL (7) 2019-12-29 15:18:00 James, [facility] LACTIC ACID, ARTERIAL 2019-12-29 15:18:00 James, [facility] PHOSPHORUS 2019-12-29 15:18:00 James, [facility] VANCOMYCIN LEVEL, TROUGH 2019-12-29 15:18:00 Mancuso, [facility] POCT-GLUCOSE METER 2019-12-29 15:17:00 DominicLulu curiel Charles [facility] POCT-GLUCOSE METER 2019-12-29 14:18:00 DominicLulu byrd Charles C [facility] APTT 2019-12-29 12:26:[address] [facility] POCT-GLUCOSE METER 2019-12-29 12:24:00 Lulu Alfaro Charles C [facility] POCT-GLUCOSE METER 2019-12-29 11:27:00 DominicLulu curiel Charles [facility] SARS-COV2/RT-PCR ([facility] & REF [facility]) 2019-12-29 10:30:00 MancusoAlbaro meng [facility] POCT-GLUCOSE METER 2019-12-29 10:15:00 DominicLulu curiel Charles [facility] BLOOD GAS, ARTERIAL 2019-12-29 10:13:00 Mancuso [facility] BASIC METABOLIC PANEL (7) 2019-12-29 10:12:00 James [facility] APTT 2019-12-29 10:12:00 Mancuso, [facility] POCT-GLUCOSE METER 2019-12-29 09:13:00 Lulu Alfaro Charles C [facility] POCT-GLUCOSE METER 2019-12-29 06:54:00 Lulu Alfaro Charles C [facility] POCT-GLUCOSE METER 2019-12-29 05:08:00 DominicJanes curield Charles C [facility] CALCIUM, IONIZED 2019-12-29 04:08:00 MancusoBrianna mengreet [facility] POCT-GLUCOSE METER 2019-12-29 04:07:00 Lulu Alfaro Charles [facility] POCT-GLUCOSE METER 2019-12-29 03:06:00 DominicLulu curiel Charles [facility] CBC W/PLT COUNT & AUTO DIFFERENTIAL 2019-12-29 02:55:00 Sanket Gonzaleznando [facility] (CELLAVISION MANUAL DIFF) 2019-12-29 02:55:00 Christ Dasilva Maciej [facility] BLOOD GAS, ARTERIAL 2019-12-29 02:51:00 Brenda Duvall [facility] MAGNESIUM 2019-12-29 02:50:00 KumarMichele gibbons [facility] PHOSPHORUS 2019-12-29 02:50:00 Kumar [facility] LACTATE DEHYDROGENASE (LDH) 2019-12-29 02:50:00 [facility] FERRITIN 2019-12-29 02:50:00 Michele Heath [facility] PROCALCITONIN 2019-12-29 02:50:00 KumarMichele [facility] C-REACTIVE PROTEIN 2019-12-29 02:50:00 Michele Heath [facility] LACTIC ACID, ARTERIAL 2019-12-29 02:50:00 James [facility] COMPREHENSIVE METABOLIC PANEL 2019-12-29 02:50:00 Lynne Ramirez [facility] POCT-GLUCOSE METER 2019-12-29 01:50:00 Lulu Alfaro Charles [facility] APTT 2019-12-29 01:41:00 Mancuso Dilreet [facility] POCT-GLUCOSE METER 2019-12-29 01:03:00 DominicJanes curield Charles C [facility] POCT-GLUCOSE METER 2019-12-28 23:50:00 DominicJanes curield Charles C [facility] APTT 2019-12-28 23:46:00 Mancuso Dilreet [facility] POCT-GLUCOSE METER 2019-12-28 22:17:00 DominicJanes curield Charles C [facility] POCT-GLUCOSE METER 2019-12-28 20:57:00 DominicAurelio curielmad Charles [facility] BLOOD GAS, ARTERIAL 2019-12-28 20:51:00 Brenda Duvall [facility] MAGNESIUM 2019-12-28 20:24:00 Stanislav Powers [facility] BASIC METABOLIC PANEL (7) 2019-12-28 20:24:00 Lynne Ramirez CH I [facility] POCT-GLUCOSE METER 2019-12-28 19:08:00 Lulu Alfaro [facility] XR CHEST 1 VIEW PORTABLE/BEDSIDE 2019-12-28 18:36:00 Brianna Mancusoree t [facility] POCT-GLUCOSE METER 2019-12-28 18:16:00 Lulu Alfaro [facility] HEMOGLOBIN AND HEMATOCRIT 2019-12-28 16:35:00 MancusoBrianna mengreet CH I [facility] POCT-GLUCOSE METER 2019-12-28 16:11:00 Lulu Alfaro [facility] APTT 2019-12-28 16:08:00 MancusoBrianna mengreet [facility] BLOOD GAS, ARTERIAL 2019-12-28 16:01:00 Jadiel [facility] BASIC METABOLIC PANEL (7) 2019-12-28 16:01:00 Lynne Ramirez CH, I [facility] LACTIC ACID, ARTERIAL 2019-12-28 16:01:00 Lynne Ramirez [facility] PHOSPHORUS 2019-12-28 16:01:00 Lynne Ramirez [facility] POCT-GLUCOSE METER 2019-12-28 14:33:00 Lulu Alfaro [facility] PERIPHERAL BLOOD SMEAR - PATHOLOGIST REVIEW 2019-12-28 13:03:[address] [facility] CBC W/PLT+MANUAL DIFF 2019-12-28 13:03:[address] [facility] CBC WITH PLATELET COUNT + MANUAL DIFF 2019-12-28 13:03:00 Si alaina Lawson [facility] (CELLAVISION MANUAL DIFF) 2019-12-28 13:03:00 Aurelio Alfaromad [facility] POCT-GLUCOSE METER 2019-12-28 13:01:00 Lulu Alfaro [facility] HAPTOGLOBIN 2019-12-28 12:55:00 Mancuso, [facility] PROTHROMBIN TIME/INR 2019-12-28 12:55:00 [facility], [facility] APTT 2019-12-28 12:55:[address] [facility] US RENAL COMPLETE 2019-12-28 12:28:00 Bartolome [facility] POCT-GLUCOSE METER 2019-12-28 12:18:00 Lulu Alfaro [facility] POCT-GLUCOSE METER 2019-12-28 11:53:00 Lulu Alfaro [facility] POCT-GLUCOSE METER 2019-12-28 11:31:00 Lulu Alfaro [facility] BLOOD GAS, ARTERIAL 2019-12-28 10:38:00 Bartolome [facility] POCT-GLUCOSE METER 2019-12-28 10:38:00 Lulu Alfaro [facility] POCT-GLUCOSE METER 2019-12-28 10:18:00 Lulu Alfaro C [facility] APTT 2019-12-28 09:11:00 Mancuso, [facility] MAGNESIUM 2019-12-28 09:02:00 Stanislav Powers [facility] BLOOD GAS, ARTERIAL 2019-12-28 09:02:00 Brenda Duvall [facility] BASIC METABOLIC PANEL (7) 2019-12-28 09:02:00 Lynne Ramirez CH I [facility] CALCIUM, IONIZED 2019-12-28 09:02:00 Mancuso, [facility] LACTATE DEHYDROGENASE (LDH) 2019-12-28 09:02:00 Mancuso, [facility] HEPATIC FUNCTION PANEL 2019-12-28 09:02:00 Mancuso, [facility] POCT-GLUCOSE METER 2019-12-28 08:55:00 Lulu Alfaro [facility] POCT-GLUCOSE METER 2019-12-28 07:30:00 Lulu Alfaro C [facility] POCT-GLUCOSE METER 2019-12-28 05:55:00 Lulu Alfaro [facility] RETICULOCYTE COUNT 2019-12-28 03:53:00 Mancuso, [facility] IMMATURE RETICULOCYTE FRACTION 2019-12-28 03:53:00 Mancuso, [facility] CBC W/PLT COUNT & AUTO DIFFERENTIAL 2019-12-28 03:53:00 Lulu Alfaro [facility] (CELLAVISION MANUAL DIFF) 2019-12-28 03:53:00 Lulu Alfaro [facility] APTT 2019-12-28 03:52:00 Mancuso, [facility] MAGNESIUM 2019-12-28 03:51:00 Michele Heath [facility] PHOSPHORUS 2019-12-28 03:51:00 Michele Heath [facility] LACTIC ACID, ARTERIAL 2019-12-28 03:51:00 JamesLynne [facility] COMPREHENSIVE METABOLIC PANEL 2019-12-28 03:51:00 JamesLynne [facility] GAMMA GLUTAMYL TRANSFERASE (GGT) 2019-12-28 03:51:00 Stephy Mancuso [facility] POCT-GLUCOSE METER 2019-12-28 03:50:00 DominicTetoLawson [facility] BLOOD GAS, ARTERIAL 2019-12-28 03:36:00 Brenda Duvall [facility] POCT-GLUCOSE METER 2019-12-28 01:58:00 DominicTetoLawson [facility] POCT-GLUCOSE METER 2019-12-28 01:04:00 DominicTetoLawson [facility] POCT-GLUCOSE METER 2019-12-27 23:41:00 DominicTetoLawson [facility] POCT-GLUCOSE METER 2019-12-27 22:28:00 Dominic Lawson [facility] BLOOD GAS, ARTERIAL 2019-12-27 22:21:00 Brenda Duvall [facility] APTT 2019-12-27 21:20:00 LafleurJc meng [facility] POCT-GLUCOSE METER 2019-12-27 20:59:00 Dominic, Lawson [facility] MAGNESIUM 2019-12-27 20:34:00 Stanislav Powers [facility] BASIC METABOLIC PANEL (7) 2019-12-27 20:34:00 Lynne Ramirez CH, I [facility] POCT-GLUCOSE METER 2019-12-27 18:36:00 DominicTetoLawson [facility] POCT-GLUCOSE METER 2019-12-27 18:32:00 Lulu Alfarom [facility] POCT-GLUCOSE METER 2019-12-27 17:19:00 Lulu Alfaro [facility] POCT-GLUCOSE METER 2019-12-27 17:00:00 Lulu Alfaro [facility] POCT-GLUCOSE METER 2019-12-27 15:35:00 Lulu Alfaro [facility] CALCIUM, IONIZED 2019-12-27 15:03:00 Bartolome [facility] BLOOD GAS, ARTERIAL 2019-12-27 14:56:00 Brenda Duvall [facility] BASIC METABOLIC PANEL (7) 2019-12-27 14:56:00 James, [facility] I [facility] LACTIC ACID, ARTERIAL 2019-12-27 14:56:00 James, [facility] PHOSPHORUS 2019-12-27 14:56:00 James, [facility] CREATINE KINASE (CK) 2019-12-27 14:56:[address] [facility] POCT-GLUCOSE METER 2019-12-27 14:43:00 Lulu Alfarom [facility] POCT-GLUCOSE METER 2019-12-27 13:06:00 Lulu Alfarom C [facility] APTT 2019-12-27 12:28:[address] [facility] POCT-GLUCOSE METER 2019-12-27 11:40:00 Lulu Alfaro [facility] POCT-GLUCOSE METER 2019-12-27 10:25:00 Lulu Alfaro C [facility] URINE CULTURE 2019-12-27 09:19:[address] [facility] URINALYSIS W/ REFLEX URINE CULTURE 2019-12-27 09:19:00 [facility] POCT-[facility]SE METER 2019-12-27 08:46:00 Dominic Lawson [facility] BLOOD GAS, ARTERIAL 2019-12-27 08:34:00 [facility] 2019-12-27 08:29:00 Stanislav Powers [facility] BASIC METABOLIC PANEL (7) 2019-12-27 08:29:00 Lynne Ramirez CH [facility] POCT-GLUCOSE METER 2019-12-27 07:04:00 Dominic Lawson [facility] APTT 2019-12-27 06:40:00 Sofia Mancuso [facility] POCT-GLUCOSE METER 2019-12-27 06:38:00 Dominic Lawson [facility] POCT-GLUCOSE METER 2019-12-27 05:03:00 Dominic, Lawson [facility] BLOOD GAS, ARTERIAL 2019-12-27 03:36:00 Jadiel, [facility] POCT-GLUCOSE METER 2019-12-27 03:35:00 Dominic Lawson [facility] PHOSPHORUS 2019-12-27 03:24:00 [facility] DE[facility]DROGENASE (LDH) 2019-12-27 03:24:00 [facility] FERRITIN 2019-12-27 03:24:00 KumarMichele [facility] PROCALCITONIN 2019-12-27 03:24:00 [facility] C-REACTIVE PROTEIN 2019-12-27 03:24:00 Michele Heath [facility] COMPREHENSIVE METABOLIC PANEL 2019-12-27 03:24:00 Lynne Ramirez [facility] IRON, TIBC, % SAT. (WITHOUT FERRITIN) 2019-12-27 03:24:00 [facility], [facility] VITAMIN B12 AND FOLATE 2019-12-27 03:24:00 Mancuso, [facility] LACTIC ACID, ARTERIAL 2019-12-27 00:38:00 [facility] 2019-12-27 00:38:00 [facility] POCT-GLUCOSE METER 2019-12-27 00:38:00 Lulu Alfaro [facility] CBC W/PLT COUNT & AUTO DIFFERENTIAL 2019-12-27 00:38:00 James, Xavier osorio [facility] (CELLAVISION MANUAL DIFF) 2019-12-27 00:38:00 Lynne Ramirez [facility] POCT-GLUCOSE METER 2019-12-26 22:46:00 Lulu Alfaro [facility] BLOOD GAS, ARTERIAL 2019-12-26 22:45:00 Aurora Copeland [facility] MAGNESIUM 2019-12-26 22:44:00 Stanislav Powers [facility] BASIC METABOLIC PANEL (7) 2019-12-26 22:44:00 Lynne Ramirez [facility] POCT-GLUCOSE METER 2019-12-26 20:40:00 Lulu Alfaro [facility] POCT-GLUCOSE METER 2019-12-26 19:26:00 Lulu Alfaro [facility] POCT-GLUCOSE METER 2019-12-26 18:21:00 Janes Alfarod [facility] BASIC METABOLIC PANEL (7) 2019-12-26 16:02:00 Lynne Ramirez [facility] LACTIC ACID, ARTERIAL 2019-12-26 16:02:00 Lynne Ramirez [facility] PHOSPHORUS 2019-12-26 16:02:00 Lynne Ramirez [facility] BLOOD GAS, ARTERIAL 2019-12-26 16:02:00 Aurora Copeland [facility] APTT 2019-12-26 16:02:00 MancusoSofia meng [facility] MAGNESIUM 2019-12-26 16:02:00 César Flannery [facility] CBC W/PLT COUNT & AUTO DIFFERENTIAL 2019-12-26 16:02:00 Xavier Ramirez [facility] (CELLAVISION MANUAL DIFF) 2019-12-26 16:02:00 Lynne Ramirez CH [facility] POCT-GLUCOSE METER 2019-12-26 14:58:00 DominicTetoLawson [facility] POCT-GLUCOSE METER 2019-12-26 13:52:00 Dominic, Lawson [facility] BLOOD GAS, ARTERIAL 2019-12-26 13:49:00 [facility] PO[facility]SE METER 2019-12-26 13:00:00 DominicTetoLawson [facility] POCT-GLUCOSE METER 2019-12-26 12:07:00 DominicTetoLawson [facility] BLOOD GAS, ARTERIAL 2019-12-26 10:44:00 Brenda Duvall [facility] BASIC METABOLIC PANEL (7) 2019-12-26 10:44:00 Lynne Ramirez CH [facility] POCT-GLUCOSE METER 2019-12-26 08:29:00 Dominic, Lawson [facility] BLOOD GAS, ARTERIAL 2019-12-26 08:15:00 Aurora Copeland [facility] POCT-GLUCOSE METER 2019-12-26 07:08:00 DominicTetoLawson [facility] MAGNESIUM 2019-12-26 04:26:00 Michele Heath [facility] PHOSPHORUS 2019-12-26 04:26:00 Michele Heath [facility] LACTIC ACID, ARTERIAL 2019-12-26 04:26:00 Lynne Ramirez [facility] COMPREHENSIVE METABOLIC PANEL 2019-12-26 04:26:00 Lynne Ramirez [facility] APTT 2019-12-26 04:26:00 Sofia Mancuso [facility] CBC W/PLT COUNT & AUTO DIFFERENTIAL 2019-12-26 04:26:00 Xavier Ramirez [facility] (CELLAVISION MANUAL DIFF) 2019-12-26 04:26:00 Lynne Ramirez CH [facility] POCT-GLUCOSE METER 2019-12-26 04:25:00 Dominic, Lawson [facility] BLOOD GAS, ARTERIAL 2019-12-26 04:22:00 Aurora Copeland [facility] CALCIUM, IONIZED 2019-12-26 04:22:00 Dom Maza [facility] POCT-GLUCOSE METER 2019-12-26 03:02:00 Dominic, Lawson [facility] BLOOD GAS, ARTERIAL 2019-12-26 02:02:00 [facility] POCT-GLUCOSE METER 2019-12-26 01:20:00 Dominic, Lawson [facility] POCT-GLUCOSE METER 2019-12-25 22:58:00 Dominic, Lawson Charles [facility] BLOOD GAS, ARTERIAL 2019-12-25 21:37:00 Jadiel [facility] POCT-GLUCOSE METER 2019-12-25 21:07:00 Dominic, Lawson [facility] BASIC METABOLIC PANEL (7) 2019-12-25 20:42:00 Lynne Ramirez CH I [facility] POCT-GLUCOSE METER 2019-12-25 20:41:00 Dominic, Lawson Charles C [facility] POCT-GLUCOSE METER 2019-12-25 19:38:00 Dominic, Lawson [facility] BASIC METABOLIC PANEL (7) 2019-12-25 17:10:00 James, Lynne [facility] LACTIC ACID, ARTERIAL 2019-12-25 17:10:00 James, Lynne [facility] PHOSPHORUS 2019-12-25 17:10:00 [facility]LO[facility], ARTERIAL 2019-12-25 17:10:00 Aurora Copeland [facility] MAGNESIUM 2019-12-25 17:10:00 Stanislav Powers [facility] CBC W/PLT COUNT & AUTO DIFFERENTIAL 2019-12-25 17:10:00 James, Xavier osorio [facility] (CELLAVISION MANUAL DIFF) 2019-12-25 17:10:00 Lynne Ramirez [facility] POCT-GLUCOSE METER 2019-12-25 16:07:00 DominicLuul byrd [facility] SPUTUM CULTURE + GRAM STAIN 2019-12-25 15:23:00 Aurora Copeland [facility] BLOOD GAS, ARTERIAL 2019-12-25 14:41:00 Aurora Copeland [facility] POCT-GLUCOSE METER 2019-12-25 14:39:00 DominicAurelio curielmad [facility] BLOOD CULTURE 2019-12-25 14:19:00 James [facility] BLOOD CULTURE 2019-12-25 14:18:00 James, [facility] BLOOD GAS, ARTERIAL 2019-12-25 13:14:00 Aurora Copeland [facility] POCT-GLUCOSE METER 2019-12-25 13:00:00 DominicAurelio curielmad [facility] POCT-GLUCOSE METER 2019-12-25 11:44:00 Dominic, Lawson Charles C [facility] POCT-GLUCOSE METER 2019-12-25 10:47:00 Dominic, Lawson [facility] BLOOD GAS, ARTERIAL 2019-12-25 08:39:00 Brenda Duvall [facility] MAGNESIUM 2019-12-25 08:38:00 Stanislav Powers [facility] BASIC METABOLIC PANEL (7) 2019-12-25 08:38:00 Lynne Ramirez CH [facility] POCT-GLUCOSE METER 2019-12-25 08:38:00 Lulu Alfaro C [facility] XR CHEST 1 VIEW PORTABLE/BEDSIDE 2019-12-25 08:32:00 Sonam Copeland [facility] POCT-GLUCOSE METER 2019-12-25 06:54:00 Lulu Alfaro [facility] THROMBOELASTOGRAPH (TEG) 2019-12-25 06:12:00 Andry Dasilva [facility] APTT 2019-12-25 06:12:00 Sofia aMncuso [facility] POCT-GLUCOSE METER 2019-12-25 05:13:00 Lulu Alfaro [facility] CBC W/PLT COUNT & AUTO DIFFERENTIAL 2019-12-25 03:21:00 Xavier Ramirez [facility] (CELLAVISION MANUAL DIFF) 2019-12-25 03:21:00 Lynne Ramirez CH [facility] CALCIUM, IONIZED 2019-12-25 03:17:00 Dom Maza [facility] MAGNESIUM 2019-12-25 03:16:00 Michele Heath [facility] PHOSPHORUS 2019-12-25 03:16:00 Michele Heath [facility] LACTATE DEHYDROGENASE (LDH) 2019-12-25 03:16:00 Michele Heath [facility] FERRITIN 2019-12-25 03:16:00 Michele Heath [facility] PROCALCITONIN 2019-12-25 03:16:00 Michele Heath [facility] C-REACTIVE PROTEIN 2019-12-25 03:16:00 Michele Heath [facility] LACTIC ACID, ARTERIAL 2019-12-25 03:16:00 Lynne Ramirez [facility] COMPREHENSIVE METABOLIC PANEL 2019-12-25 03:16:00 Lynne Ramirez [facility] PROTHROMBIN TIME/INR 2019-12-25 03:16:00 [facility]Brianna [facility] BLOOD [facility], ARTERIAL 2019-12-25 03:15:00 Jadiel [facility] POCT-GLUCOSE METER 2019-12-25 03:13:00 Lulu Alfaro [facility] 2D ECHO W/ DOPPLER (CW/PW/COLOR) 2019-12-25 02:32:31 [facility] 2019-12-24 22:28:00 Jadiel [facility] BASIC METABOLIC PANEL (7) 2019-12-24 22:28:00 Lynne Ramirez [facility] MAGNESIUM 2019-12-24 20:55:00 Stanislav Powers [facility] PHOSPHORUS 2019-12-24 20:55:00 Stanislav Powers [facility] POCT-GLUCOSE METER 2019-12-24 20:55:00 Lulu Alfaro [facility] GLUCOSE 2019-12-24 18:55:[address] [facility] POCT-GLUCOSE METER 2019-12-24 18:03:00 Lulu Alfaro [facility] BASIC METABOLIC PANEL (7) 2019-12-24 15:58:00 Lynne Ramirez [facility] LACTIC ACID, ARTERIAL 2019-12-24 15:58:00 [facility] W/PLT COUNT & AUTO DIFFERENTIAL 2019-12-24 15:58:00 JamesXavier [facility] (CELLAVISION MANUAL DIFF) 2019-12-24 15:58:00 [facility] 2019-12-24 15:22:00 Jadiel [facility] POCT-GLUCOSE METER 2019-12-24 12:22:00 Lulu Alfaro [facility] BLOOD GAS, ARTERIAL 2019-12-24 10:51:00 Brenda Duvall [facility] MAGNESIUM 2019-12-24 09:00:00 Stanislav Powers [facility] PHOSPHORUS 2019-12-24 09:00:00 Stanislav Powers [facility] BASIC METABOLIC PANEL (7) 2019-12-24 09:00:00 Lynne Ramirez CH I [facility] BLOOD GAS, ARTERIAL 2019-12-24 03:08:00 Jadiel [facility] LACTIC ACID, ARTERIAL 2019-12-24 03:08:00 JamesLynne [facility] CALCIUM, IONIZED 2019-12-24 03:08:00 Eric Gage [facility] CBC W/PLT COUNT & AUTO DIFFERENTIAL 2019-12-24 03:08:00 James, Xavier osorio [facility] (MANUAL DIFFERENTIAL) 2019-12-24 03:08:00 Lulu Alfaro [facility] THROMBOELASTOGRAPH (TEG) 2019-12-24 03:07:00 MancusoSofia meng [facility] MAGNESIUM 2019-12-24 03:07:00 Michele Heath [facility] PHOSPHORUS 2019-12-24 03:07:00 Michele Heath [facility] COMPREHENSIVE METABOLIC PANEL 2019-12-24 03:07:00 JamesLynne [facility] PROTHROMBIN TIME/INR 2019-12-24 03:07:00 MancusoSofia [facility] APTT 2019-12-24 03:07:00 Sanket Dasilva [facility] POCT-GLUCOSE METER 2019-12-23 23:40:00 Lulu Alfaro [facility] BLOOD CULTURE, ROUTINE ISOLATOR 2019-12-23 21:22:00 Mancuso, [facility] BLOOD GAS, ARTERIAL 2019-12-23 21:22:00 Jadiel [facility] BLOOD CULTURE 2019-12-23 20:24:00 Sofia Mancuso [facility] MAGNESIUM 2019-12-23 20:23:00 Stanislav Powers [facility] PHOSPHORUS 2019-12-23 20:23:00 [facility]OLIC PANEL (7) 2019-12-23 20:23:00 Lynne Ramirez [facility] POCT-GLUCOSE METER 2019-12-23 18:11:00 Lulu Alfaro [facility] BLOOD GAS, ARTERIAL 2019-12-23 15:51:00 Jadiel [facility] BASIC METABOLIC PANEL (7) 2019-12-23 15:51:00 Lynne Ramirez [facility] LACTIC ACID, ARTERIAL 2019-12-23 15:51:00 [facility] W/PLT COUNT & AUTO DIFFERENTIAL 2019-12-23 15:51:00 JamesXavier cruz [facility] (CELLAVISION MANUAL DIFF) 2019-12-23 15:51:00 Lynne Ramirez [facility] POCT-GLUCOSE METER 2019-12-23 11:55:00 Lulu Alfaro [facility] FERRITIN 2019-12-23 10:14:00 Michele Heath [facility] MAGNESIUM 2019-12-23 10:14:00 Stanislav Powers [facility] PHOSPHORUS 2019-12-23 10:14:00 [facility]LO[facility], ARTERIAL 2019-12-23 10:14:00 [facility]OLIC PANEL (7) 2019-12-23 10:14:00 Lynne Ramirez [facility] POCT-GLUCOSE METER 2019-12-23 06:07:00 Janes Alfarod [facility] MAGNESIUM 2019-12-23 04:19:00 [facility] 2019-12-23 04:19:00 Kumar Michele [facility] LACTATE DEHYDROGENASE (LDH) 2019-12-23 04:19:00 KumarMichele [facility] PROCALCITONIN 2019-12-23 04:19:00 Kumar Michele [facility] C-REACTIVE PROTEIN 2019-12-23 04:19:00 [facility] Logan [facility] BLOOD GAS, ARTERIAL 2019-12-23 04:19:00 Jadiel [facility] LACTIC ACID, ARTERIAL 2019-12-23 04:19:00 JamesLynne [facility] COMPREHENSIVE METABOLIC PANEL 2019-12-23 04:19:00 [facility] PROT[facility]OMBIN TIME/INR 2019-12-23 04:19:[address] [facility] APTT 2019-12-23 04:19:[address] [facility] CBC W/PLT COUNT & AUTO DIFFERENTIAL 2019-12-23 04:19:00 JamesXavier [facility] (CELLAVISION MANUAL DIFF) 2019-12-23 04:19:00 Lynne Ramirez [facility] POCT-GLUCOSE METER 2019-12-23 00:19:00 Lulu Alfaro C [facility] MAGNESIUM 2019-12-22 21:12:00 Stanislav Powers [facility] PHOSPHORUS 2019-12-22 21:12:00 Stanislav Powers [facility] BLOOD GAS, ARTERIAL 2019-12-22 21:12:00 Jadiel [facility] BASIC METABOLIC PANEL (7) 2019-12-22 21:12:00 Lynne Ramirez [facility] APTT 2019-12-22 20:22:00 Mancuso, [facility] POCT-GLUCOSE METER 2019-12-22 18:55:00 Lulu Alfaro [facility] BLOOD GAS, ARTERIAL 2019-12-22 14:46:00 Jadiel [facility] BASIC METABOLIC PANEL (7) 2019-12-22 14:46:00 JamesLynne [facility] LACTIC ACID, ARTERIAL 2019-12-22 14:46:00 [facility] W/PLT COUNT & AUTO DIFFERENTIAL 2019-12-22 14:46:00 JamesXavier [facility] (CELLAVISION MANUAL DIFF) 2019-12-22 14:46:00 [facility] POCT-GLUCOSE METER 2019-12-22 12:33:00 Lulu Alfaro [facility] APTT 2019-12-22 12:26:00 Mancuso, [facility] US ABDOMEN LIMITED 2019-12-22 11:00:00 Mancuso, [facility] MAGNESIUM 2019-12-22 09:51:00 [facility] PHOSPHORUS 2019-12-22 09:51:00 [facility] BLOOD GAS, ARTERIAL 2019-12-22 09:51:00 Jadiel [facility] BASIC METABOLIC PANEL (7) 2019-12-22 09:51:00 JamesLynne cruz [facility] MAGNESIUM 2019-12-22 03:56:00 KumarMichele avila [facility] PHOSPHORUS 2019-12-22 03:56:00 KumarMichele avila [facility] BLOOD GAS, ARTERIAL 2019-12-22 03:56:00 Jadiel [facility] LACTIC ACID, ARTERIAL 2019-12-22 03:56:00 Lynne Ramirez [facility] COMPREHENSIVE METABOLIC PANEL 2019-12-22 03:56:00 Lynne Ramirez [facility] APTT 2019-12-22 03:56:[address] [facility] THROMBOELASTOGRAPH (TEG) 2019-12-22 03:56:00 Mancuso, [facility] CBC W/PLT COUNT & AUTO DIFFERENTIAL 2019-12-22 03:56:00 JamesXavier [facility] (CELLAVISION MANUAL DIFF) 2019-12-22 03:56:00 JamesLynne cruz [facility] POCT-GLUCOSE METER 2019-12-22 02:16:00 Preethi, [facility] BLOOD GAS, ARTERIAL 2019-12-21 23:06:00 Jadiel [facility] CALCIUM, IONIZED 2019-12-21 23:06:00 Christopher Crespo [facility] MAGNESIUM 2019-12-21 21:30:00 Stanislav Powers [facility] PHOSPHORUS 2019-12-21 21:30:00 Stanislav Powers [facility] BASIC METABOLIC PANEL (7) 2019-12-21 21:30:00 JamesLynne cruz [facility] APTT 2019-12-21 21:30:00 Sanket Dasilva [facility] BLOOD GAS, ARTERIAL 2019-12-21 18:08:00 Bartolome [facility] POCT-GLUCOSE METER 2019-12-21 18:05:00 Preethi [facility] APTT 2019-12-21 16:46:00 Sanket Dasilva [facility] BLOOD GAS, ARTERIAL 2019-12-21 16:17:00 Jadiel [facility] LACTIC ACID, ARTERIAL 2019-12-21 16:15:00 [facility] BASIC METABOLIC PANEL (7) 2019-12-21 15:25:00 Lynne Ramirez [facility] CBC W/PLT COUNT & AUTO DIFFERENTIAL 2019-12-21 15:25:00 Xavier Ramirez [facility] (CELLAVISION MANUAL DIFF) 2019-12-21 15:25:00 Lynne Ramirez [facility] POCT-GLUCOSE METER 2019-12-21 13:07:00 Sophia Oro [facility] BLOOD GAS, ARTERIAL 2019-12-21 11:11:00 Jadiel [facility] BASIC METABOLIC PANEL (7) 2019-12-21 11:05:00 Lynne Ramirez [facility] BLOOD CULTURE 2019-12-21 11:04:00 Christopher Crespo [facility] SPUTUM CULTURE + GRAM STAIN 2019-12-21 11:03:00 Mancuso, [facility] BLOOD CULTURE 2019-12-21 11:03:00 Patience Yancey [facility] XR CHEST 1 VIEW PORTABLE/BEDSIDE 2019-12-21 10:03:00 [facility] POCT-GLUCOSE METER 2019-12-21 09:05:00 Preethi [facility] BLOOD GAS, ARTERIAL 2019-12-21 05:22:00 Jadiel [facility] THROMBOELASTOGRAPH (TEG) 2019-12-21 04:45:00 Mancuso, [facility] APTT 2019-12-21 04:44:[address] [facility] MAGNESIUM 2019-12-21 04:42:00 Michele Heath [facility] PHOSPHORUS 2019-12-21 04:42:00 Michele Heath [facility] LACTATE DEHYDROGENASE (LDH) 2019-12-21 04:42:00 [facility] FERRITIN 2019-12-21 04:42:00 Kumar Michele [facility] PROCALCITONIN 2019-12-21 04:42:00 Michele Heath [facility] C-REACTIVE PROTEIN 2019-12-21 04:42:00 Michele Heath [facility] LACTIC ACID, ARTERIAL 2019-12-21 04:42:00 Lynne Ramirez [facility] COMPREHENSIVE METABOLIC PANEL 2019-12-21 04:42:00 James [facility] CBC W/PLT COUNT & AUTO DIFFERENTIAL 2019-12-21 04:42:00 [facility]FF[facility] 2019-12-21 04:42:00 Lynne Ramirez [facility] BLOOD GAS, ARTERIAL 2019-12-21 00:38:00 Jadiel [facility] POCT-GLUCOSE METER 2019-12-21 00:35:00 Preethi, [facility] MAGNESIUM 2019-12-20 21:02:00 Stanislav Powers [facility] PHOSPHORUS 2019-12-20 21:02:00 Stanislav Powers [facility] BASIC METABOLIC PANEL (7) 2019-12-20 21:02:00 Lynne Ramirez [facility] TRANSFUSION SERVICE REPORT - SCAN 2019-12-20 18:01:18 Provid er, Default Scanning [facility] POCT-GLUCOSE METER 2019-12-20 17:40[facility] 2019-12-20 15:50:00 Jadiel [facility] BASIC METABOLIC PANEL (7) 2019-12-20 15:49:00 Lynne Ramirez [facility] LACTIC ACID, ARTERIAL 2019-12-20 15:49:00 James [facility] CBC W/PLT COUNT & AUTO DIFFERENTIAL 2019-12-20 15:49:00 [facility] ([facility]LL[facility]UAL DIFF) 2019-12-20 15:49:00 Lynne Ramirez [facility] APTT 2019-12-20 13:02:00 Sanket Dasilva [facility] POCT-GLUCOSE METER 2019-12-20 12:10:00 Sophia Oro [facility] MAGNESIUM 2019-12-20 10:17:00 GioStanislav [facility] PHOSPHORUS 2019-12-20 10:17:00 [facility]LO[facility], ARTERIAL 2019-12-20 10:17:00 [facility] BASIC METABOLIC PANEL (7) 2019-12-20 10:17:00 Lynne Ramirez [facility] POCT-GLUCOSE METER 2019-12-20 06:04:00 Sophia Oro [facility] MAGNESIUM 2019-12-20 03:41:00 Kumar Michele [facility] PHOSPHORUS 2019-12-20 03:41:00 Kumar Michele [facility] BLOOD GAS, ARTERIAL 2019-12-20 03:41:00 [facility] VANCOMYCIN LEVEL, TROUGH 2019-12-20 03:41:00 Sofia Mancuso [facility] BASIC METABOLIC PANEL (7) 2019-12-20 03:41:00 [facility]-20 03:41:00 Sanket Dasilva [facility] THROMBOELASTOGRAPH (TEG) 2019-12-20 03:41:00 Andry Dasilva [facility] CBC W/PLT COUNT & AUTO DIFFERENTIAL 2019-12-20 03:41:00 Rebecca Osorio [facility] (CELLAVISION MANUAL DIFF) 2019-12-20 03:41:00 Rebecca Aguilar [facility] POCT-GLUCOSE METER 2019-12-19 23:54:00 Sanket Dasilva [facility] PREPARE PLASMA 2019-12-19 23:54:00 MancusoStephyt [facility] POTASSIUM 2019-12-19 23:37:00 Sanket Dasilva [facility] APTT 2019-12-19 23:37:00 Mancuso, [facility] BLOOD GAS, ARTERIAL 2019-12-19 22:02:00 Maria EugeniaoguDenton K [facility] ECG 12-LEAD 2019-12-19 21:55:45 Unknown, Hl7 Doctor [facility] POCT-GLUCOSE METER 2019-12-19 19:38:00 [facility] BLO[facility], ARTERIAL 2019-12-19 19:36:00 Brenda Duvall [facility] MAGNESIUM 2019-12-19 19:26:00 Stanislav Powers [facility] PHOSPHORUS 2019-12-19 19:26:00 Stanislav Powers [facility] SODIUM 2019-12-19 19:26:00 Stanislav Powers [facility] TRANSFUSION SERVICE REPORT - SCAN 2019-12-19 18:01:27 Provid er, Default Scanning [facility] APTT 2019-12-19 17:35:00 Sanket Dasilva tnaugusta [facility] POCT-GLUCOSE METER 2019-12-19 17:25:00 [facility] POCT-GLUCOSE METER 2019-12-19 16:22:00 [facility] BLOOD [facility]AS, ARTERIAL 2019-12-19 16:20:00 Brenda Duvall [facility] POTASSIUM 2019-12-19 16:20:00 Stanislav Powers [facility] POCT-GLUCOSE METER 2019-12-19 10:59:00 Sanket Dasilva [facility] POTASSIUM 2019-12-19 10:55:00 Stanislav Powers [facility] BLOOD GAS, ARTERIAL 2019-12-19 10:54:00 [facility] POCT-[facility]SE METER 2019-12-19 08:10:00 Sanket Dasilva [facility] MAGNESIUM 2019-12-19 08:04:00 Stanislav Powers [facility] PHOSPHORUS 2019-12-19 08:04:00 Stanislav Powers [facility] APTT 2019-12-19 08:03:00 Sanket Dasilva [facility] TRANSFUSE PLASMA 2019-12-19 06:26:04 Bartolome [facility] BLOOD GAS, ARTERIAL 2019-12-19 04:04:00 [facility] MAGNESIUM 2019-12-19 04:02:00 Michele Heath [facility] PHOSPHORUS 2019-12-19 04:02:00 Kumar [facility] LACTATE DEHYDROGENASE (LDH) 2019-12-19 04:02:00 Michele Heath [facility] FERRITIN 2019-12-19 04:02:00 Kumar [facility] PROCALCITONIN 2019-12-19 04:02:00 [facility] C-REACTIVE PROTEIN 2019-12-19 04:02:00 [facility] VANCOMYCIN LEVEL, TROUGH 2019-12-19 04:02:[address] [facility] BASIC METABOLIC PANEL (7) 2019-12-19 04:02:00 Stanislav Powers [facility] CBC W/PLT COUNT & AUTO DIFFERENTIAL 2019-12-19 04:02:00 Rebecca Osorio [facility] (CELLAVISION MANUAL DIFF) 2019-12-19 04:02:00 Rebecca Aguilar [facility] APTT 2019-12-19 03:30:00 Sanket Dasilva [facility] THROMBOELASTOGRAPH (TEG) 2019-12-19 03:30:00 Andry Dasilva [facility] POTASSIUM 2019-12-19 01:01:00 Stanislav Powers [facility] POCT-GLUCOSE METER 2019-12-19 00:49:00 [facility] BLOOD GAS, ARTERIAL 2019-12-18 23:16:00 Brenda Duvall [facility] POTASSIUM 2019-12-18 20:48:00 Stanislav Powers [facility] MAGNESIUM 2019-12-18 20:48:00 Stanislav Powers [facility] PHOSPHORUS 2019-12-18 20:48:00 Stanislav Powers [facility] SODIUM 2019-12-18 20:48:00 Stanislav Powerssus [facility] TRANSFUSE PLASMA 2019-12-18 17:00:44 Bartolome [facility] POCT-GLUCOSE METER 2019-12-18 16:57:00 Sanket Dasilva [facility] POTASSIUM 2019-12-18 15:04:00 Stanislav Powers [facility] BASIC METABOLIC PANEL (7) 2019-12-18 15:04:00 Christ Dasilva [facility] BLOOD GAS, ARTERIAL 2019-12-18 15:02:00 Brenda Duvall [facility] BLOOD GAS, ARTERIAL 2019-12-18 12:14:00 JamesLynne [facility] POCT-GLUCOSE METER 2019-12-18 11:07:00 Sanket Dasilva [facility] CORTISOL 2019-12-18 10:45:00 JamesLynne [facility] ABORH, MANUAL 2019-12-18 10:45:00 MancusoSofia [facility] CBC W/PLT COUNT & AUTO DIFFERENTIAL 2019-12-18 10:45:00 Rebecca Osorio [facility] (CELLAVISION MANUAL DIFF) 2019-12-18 10:45:00 Jose MnavjotRebecca hermosillo [facility] BLOOD GAS, ARTERIAL 2019-12-18 07:58:00 Jadiel [facility] CALCIUM, IONIZED 2019-12-18 06:07:00 RobertoAnn Marie [facility] APTT 2019-12-18 06:07:00 Mancuso, [facility] THROMBOELASTOGRAPH (TEG) 2019-12-18 06:07:00 Andry Dasilva [facility] POCT-GLUCOSE METER 2019-12-18 06:07:00 Sanket Dasilva [facility] BASIC METABOLIC PANEL (7) 2019-12-18 06:06:00 [facility] 2019-12-18 06:06:00 [facility]US 2019-12-18 06:06:00 [facility] MAGNESIUM 2019-12-18 02:57:00 Michele Heath [facility] PHOSPHORUS 2019-12-18 02:57:00 Michele Heath [facility] COMPREHENSIVE METABOLIC PANEL 2019-12-18 02:57:[address] [facility] POTASSIUM 2019-12-18 02:57:00 [facility] BLOOD GAS, ARTERIAL 2019-12-18 02:57:00 Jadiel [facility] VANCOMYCIN LEVEL, TROUGH 2019-12-18 02:57:[address] [facility] POCT-GLUCOSE METER 2019-12-17 23:53:00 Sanket Dasilva [facility] MAGNESIUM 2019-12-17 21:16:00 Stanislav Powers [facility] PHOSPHORUS 2019-12-17 21:16:00 Gio, [facility] SODIUM 2019-12-17 21:16:00 Gio Stanislav Maldonado [facility] CALCIUM, IONIZED 2019-12-17 21:16:00 Navneet Montoya [facility] BLOOD GAS, ARTERIAL 2019-12-17 21:16:00 [facility]iel [facility] POTASSIUM 2019-12-17 21:16:00 Stanislav Powers Jesus [facility] POCT-GLUCOSE METER 2019-12-17 17:16:00 [facility] 2019-12-17 17:04:00 Sanket Dasilva [facility] LACTIC ACID, ARTERIAL 2019-12-17 17:04:00 Sofia Mancuso [facility] BLOOD GAS, ARTERIAL 2019-12-17 15:09:00 Jadiel [facility] POTASSIUM 2019-12-17 15:08:00 Stanislav Powers Jesus [facility] POTASSIUM 2019-12-17 12:44:00 [facility]av [facility] BLOOD GAS, ARTERIAL 2019-12-17 11:31:00 Jadiel [facility] APTT 2019-12-17 11:31:00 Sanket [facility] POCT-GLUCOSE METER 2019-12-17 11:31:00 Sanket Dasilva [facility] BLOOD CULTURE 2019-12-17 11:16:00 Rebecca Aguilar [facility] BLOOD CULTURE 2019-12-17 10:52:00 Rebecca Aguilar [facility] URINE CULTURE 2019-12-17 10:18:00 Rebecca Aguilar [facility] URINALYSIS W/ REFLEX URINE CULTURE 2019-12-17 10:18:00 Rebecca Stewart [facility] SPUTUM CULTURE + GRAM STAIN 2019-12-17 10:14:00 Seun Aguilar [facility] POCT-GLUCOSE METER 2019-12-17 09:17:00 Sanket Dasilva [facility] CALCIUM, IONIZED 2019-12-17 09:08:00 Brenda Duvall [facility] BASIC METABOLIC PANEL (7) 2019-12-17 06:54:00 Stanislav Powers [facility] BLOOD GAS, ARTERIAL 2019-12-17 06:45:00 Mancuso, [facility] POCT-GLUCOSE METER 2019-12-17 06:43:00 Sanket Dasilva [facility] APTT 2019-12-17 05:49:00 Sanket Dasilva [facility] THROMBOELASTOGRAPH (TEG) 2019-12-17 05:49:00 Mancuso, [facility] MAGNESIUM 2019-12-17 04:48:00 KumarMichele avila [facility] PHOSPHORUS 2019-12-17 04:48:00 Kumar [facility] LACTATE DEHYDROGENASE (LDH) 2019-12-17 04:48:00 KumarMichele [facility] FERRITIN 2019-12-17 04:48:00 Kumar Michele [facility] PROCALCITONIN 2019-12-17 04:48:00 [facility] Michele [facility] C-REACTIVE PROTEIN 2019-12-17 04:48:00 [facility] COMPREHENSIVE METABOLIC PANEL 2019-12-17 04:48:00 Mancuso, [facility] CBC W/PLT COUNT & AUTO DIFFERENTIAL 2019-12-17 04:48:00 Prateek Booth [facility] BLOOD GAS, ARTERIAL 2019-12-17 01:35:00 Mancuso, [facility] POTASSIUM 2019-12-17 01:35:00 Stanislav Powers [facility] POCT-GLUCOSE METER 2019-12-17 00:20:00 Sanket Dasilva [facility] POTASSIUM 2019-12-16 21:48:00 Stanislav Powers Jesus [facility] MAGNESIUM 2019-12-16 21:48:00 Stanislav Powers Jesus [facility] PHOSPHORUS 2019-12-16 21:48:00 Stanislav Powers Jesus [facility] SODIUM 2019-12-16 21:48:00 Gio Zain [facility] POCT-GLUCOSE METER 2019-12-16 17:52:00 [facility] BLOOD [facility]AS, ARTERIAL 2019-12-16 17:35:00 Mancuso, [facility] POTASSIUM 2019-12-16 15:20:00 Stanislav Powers Jesus [facility] POTASSIUM 2019-12-16 11:25:00 Gio Zain [facility] BLOOD GAS, ARTERIAL 2019-12-16 11:23:00 Mancuso, [facility] APTT 2019-12-16 11:22:00 Sanket Dasilva [facility] POCT-GLUCOSE METER 2019-12-16 10:00:00 [facility] BLOOD GAS, ARTERIAL 2019-12-16 05:52:00 Mancuso, [facility] BASIC METABOLIC PANEL (7) 2019-12-16 05:52:00 Stanislav Powers [facility] MAGNESIUM 2019-12-16 05:52:00 Stanislav Powers [facility] PHOSPHORUS 2019-12-16 05:52:00 Stanislav Powerssus [facility] BLOOD GAS, ARTERIAL 2019-12-16 02:55:00 Mancuso, [facility] MAGNESIUM 2019-12-16 02:53:00 Michele Heath [facility] PHOSPHORUS 2019-12-16 02:53:00 Michele Heath [facility] COMPREHENSIVE METABOLIC PANEL 2019-12-16 02:53:00 Sofia Mancuso [facility] POTASSIUM 2019-12-16 02:53:00 Stanislav Powers [facility] CBC W/PLT COUNT & AUTO DIFFERENTIAL 2019-12-16 02:53:00 Prateek Booth [facility] (CELLAVISION MANUAL DIFF) 2019-12-16 02:53:00 Prateek Booth [facility] POTASSIUM 2019-12-16 00:02:00 Stanislav Powers [facility] BLOOD GAS, ARTERIAL 2019-12-16 00:01:00 Brianna [facility] caresabino [facility] POTASSIUM 2019-12-15 20:35:00 Stansilav Powers [facility] MAGNESIUM 2019-12-15 20:35:00 Stanislav Powers [facility] PHOSPHORUS 2019-12-15 20:35:00 Stanislav Powers [facility] SODIUM 2019-12-15 20:35:00 Stanislav Powers [facility] TRANSFUSION SERVICE REPORT - SCAN 2019-12-15 18:02:13 Provid er, Default Scanning [facility] POCT-GLUCOSE METER 2019-12-15 17:49:00 Sanket Dasilva [facility] XR CHEST 1 VIEW PORTABLE/BEDSIDE 2019-12-15 17:46:00 Scott Paz [facility] POTASSIUM 2019-12-15 16:37:00 Stanislav Powers [facility] APTT 2019-12-15 16:37:00 Sanket Dasilva [facility] POCT-GLUCOSE METER 2019-12-15 13:32:00 Snaket Dasilva [facility] BLOOD GAS, ARTERIAL 2019-12-15 13:24:00 Bartolome [facility] BASIC METABOLIC PANEL (7) 2019-12-15 13:23:00 Jenny Montoya nikkiupriyaderadha [facility] LEGIONELLA URINE ANTIGEN 2019-12-15 13:23:00 Rebecca Aguilar [facility] HEPARIN ASSAY - LOW MOLECULAR WEIGHT 2019-12-15 11:09:00 MancusoViola lreet [facility] POCT-GLUCOSE METER 2019-12-15 10:28:00 Sanket Dasilva [facility] POCT-GLUCOSE METER 2019-12-15 08:43:00 Sanket Dasilva [facility] BLOOD GAS, ARTERIAL 2019-12-15 05:40:00 Mancuso, Dilreet [facility] POCT-GLUCOSE METER 2019-12-15 05:38:00 Sanket Dasilva [facility] MAGNESIUM 2019-12-15 04:10:00 Michele Heath [facility] PHOSPHORUS 2019-12-15 04:10:00 Michele Heath [facility] LACTATE DEHYDROGENASE (LDH) 2019-12-15 04:10:00 Michele Heath [facility] FERRITIN 2019-12-15 04:10:00 [facility] PROCALCITONIN 2019-12-15 04:10:00 Michele Heath [facility] C-REACTIVE PROTEIN 2019-12-15 04:10:00 Michele Heath C [facility] THROMBOELASTOGRAPH (TEG) 2019-12-15 04:10:00 Andry Dasilva [facility] APTT 2019-12-15 04:10:00 Sanket Dasilva [facility] BASIC METABOLIC PANEL (7) 2019-12-15 04:10:00 Mancuso, Briannareet [facility] CBC W/PLT COUNT & AUTO DIFFERENTIAL 2019-12-15 04:10:00 Prateek Booth [facility] (CELLAVISION MANUAL DIFF) 2019-12-15 04:10:00 Prateek Booth [facility] POCT-GLUCOSE METER 2019-12-15 03:17:00 Sanket Dasilva [facility] POCT-GLUCOSE METER 2019-12-15 02:10:00 Sanket Dasilva [facility] POCT-GLUCOSE METER 2019-12-15 00:12:00 Sanket Dasilva [facility] PREPARE PLASMA 2019-12-14 23:54:00 PreethiCodyrobinaung [facility] BLOOD GAS, ARTERIAL 2019-12-14 23:20:00 Mancuso, [facility] APTT 2019-12-14 23:19:00 Sanket Dasilva tnaugusta [facility] POCT-GLUCOSE METER 2019-12-14 23:17:00 Sanket Dasilva [facility] POCT-GLUCOSE METER 2019-12-14 21:45:00 Sanket Dasilva [facility] APTT 2019-12-14 21:29:00 Sanket Dasilva [facility] BLOOD GAS, ARTERIAL 2019-12-14 20:11:00 Mancuso, [facility] POCT-GLUCOSE METER 2019-12-14 20:09:00 Sanket Dasilva [facility] TRANSFUSION SERVICE REPORT - SCAN 2019-12-14 18:12:21 Provid er, Default Scanning [facility] POCT-GLUCOSE METER 2019-12-14 18:06:00 Sanket Dasilva [facility] BLOOD GAS, ARTERIAL 2019-12-14 17:57:00 [facility] BASIC METABOLIC PANEL (7) 2019-12-14 17:56:00 Mancuso, Dilreet [facility] APTT 2019-12-14 17:56:00 Sanket Dasilva [facility] THROMBOELASTOGRAPH (TEG) 2019-12-14 17:56:00 Andry Dasilva [facility] POCT-GLUCOSE METER 2019-12-14 16:14:00 Anna Powers Sanket Quiroz [facility] POCT-GLUCOSE METER 2019-12-14 13:22:00 Anna Powers Sanket Quiroz [facility] BLOOD GAS, ARTERIAL 2019-12-14 13:14:00 Mancuso, [facility] SPUTUM CULTURE + GRAM STAIN 2019-12-14 13:13:00 Seun Aguilar [facility] POCT-GLUCOSE METER 2019-12-14 12:01:00 Anna Powers Sanket [facility] POCT-GLUCOSE METER 2019-12-14 10:53:00 Anna Powers Sanket [facility] POCT-GLUCOSE METER 2019-12-14 08:04:00 Anna Powers Sanket [facility] POCT-GLUCOSE METER 2019-12-14 05:22:00 Anna Powers Sanket [facility] COMPREHENSIVE METABOLIC PANEL 2019-12-14 04:01:00 Radha Heath [facility] MAGNESIUM 2019-12-14 04:01:00 Michele Heath [facility] PHOSPHORUS 2019-12-14 04:01:00 Michele Heath [facility] BLOOD GAS, ARTERIAL 2019-12-14 04:01:00 Mancuso, [facility] CBC W/PLT COUNT & AUTO DIFFERENTIAL 2019-12-14 04:01:00 Prateek Booth [facility] HIV-1 ANTIGEN WITH HIV-1/2 ANTIBODY 2019-12-14 04:00:00 Mancuso, [facility] APTT 2019-12-14 04:00:[address] [facility] POCT-GLUCOSE METER 2019-12-13 23:12:00 Anna Powers Sanket pierre [facility] PT/APTT 2019-12-13 23:04:00 Sanket Dasilva [facility] BLOOD GAS, ARTERIAL 2019-12-13 23:04:00 Mancuso, [facility] BLOOD [facility], ARTERIAL 2019-12-13 18:58:00 [facility], [facility] POCT-GLUCOSE METER 2019-12-13 18:56:00 Sanket Dasilva [facility] XR ABDOMEN / KUB 1 VIEW 2019-12-13 18:50:00 JamesLynne [facility] XR CHEST 1 VIEW PORTABLE/BEDSIDE 2019-12-13 18:50:00 JamesMily [facility] TRANSFUSION SERVICE REPORT - SCAN 2019-12-13 18:01:13 Provid er, Default Scanning [facility] POCT-GLUCOSE METER 2019-12-13 13:04:00 [facility] BLOOD GAS, ARTERIAL 2019-12-13 13:00:00 Mancuso, [facility] TRANSFUSE PLASMA 2019-12-13 12:11:49 Rebecca Aguilar [facility] POCT-GLUCOSE METER 2019-12-13 05:33:00 [facility] THROMBOELASTOGRAPH (TEG) 2019-12-13 03:27:00 Prateek Booth [facility] COMPREHENSIVE METABOLIC PANEL 2019-12-13 03:27:00 Radha Heath [facility] MAGNESIUM 2019-12-13 03:27:00 Michele Heath [facility] PHOSPHORUS 2019-12-13 03:27:00 Michele Heath [facility] B-TYPE NATRIURETIC FACTOR (BNP) 2019-12-13 03:27:00 Gregg Heath [facility] LACTATE DEHYDROGENASE (LDH) 2019-12-13 03:27:00 Michele Heath [facility] FERRITIN 2019-12-13 03:27:00 Michele Heath [facility] PROCALCITONIN 2019-12-13 03:27:00 Michele Heath [facility] C-REACTIVE PROTEIN 2019-12-13 03:27:00 Kumar Michele Uldwig C [facility] CALCIUM, IONIZED 2019-12-13 03:27:00 Yoana Starr [facility] HEPATITIS C ANTIBODY 2019-12-13 03:27:00 MancusoSofia meng [facility] CBC W/PLT COUNT & AUTO DIFFERENTIAL 2019-12-13 03:27:00 Prateek Booth [facility] US RENAL COMPLETE 2019-12-13 00:10:00 Stanislav Powers [facility] URINALYSIS W/ REFLEX URINE CULTURE 2019-12-12 23:33:00 Jennifer Powers se [facility] CREATININE, RANDOM URINE 2019-12-12 23:33:00 Stanislav Powers [facility] EOSINOPHIL SMEAR, URINE 2019-12-12 23:33:00 Stanislav Powerssus [facility] POTASSIUM, RANDOM URINE 2019-12-12 23:33:00 Stanislav Powers [facility] PROTEIN, RANDOM URINE 2019-12-12 23:33:00 Stanislav Powers Jesus [facility] SODIUM, RANDOM URINE 2019-12-12 23:33:00 Stanislav Powers [facility] UREA NITROGEN, RANDOM URINE 2019-12-12 23:33:00 Stanislav Powers [facility] POCT-GLUCOSE METER 2019-12-12 22:23:00 [facility] BLOOD GAS, ARTERIAL 2019-12-12 22:19:00 Kumar Michele [facility] OXYGEN SATURATION, MEASURED 2019-12-12 20:22:00 Diane Starr [facility] TRANSFUSION SERVICE REPORT - SCAN 2019-12-12 18:02:11 Provid er, Default Scanning [facility] CBC (HEMOGRAM ONLY) 2019-12-12 17:44:00 Matty [facility] BASIC METABOLIC PANEL (7) 2019-12-12 17:44:00 [facility]ty [facility] MAGNESIUM 2019-12-12 17:44:00 Matty [facility] LACTIC ACID, VENOUS 2019-12-12 17:44:00 Matty [facility] PHOSPHORUS 2019-12-12 17:44:00 Matty [facility] APTT 2019-12-12 17:44:00 Matty [facility] PROTHROMBIN TIME/INR 2019-12-12 17:44:00 [facility] FIBRINOGEN 2019-12-12 17:44:00 Matty [facility] POCT-GLUCOSE METER 2019-12-12 15:51:00 [facility] TRANSFUSE PLASMA 2019-12-12 14:34:37 Preethi [facility] C-REACTIVE PROTEIN 2019-12-12 11:35:00 Leobardo [facility] FERRITIN 2019-12-12 11:35:00 Leobardo [facility] PROCALCITONIN 2019-12-12 11:35:00 Leobardo [facility] FIBRINOGEN 2019-12-12 11:35:00 Preston [facility] PERIPHERAL BLOOD SMEAR - HOLD ONLY 2019-12-12 11:35:00 [facility] CBC (HEMOGRAM ONLY) 2019-12-12 07:36:00 Preethi [facility] B-TYPE NATRIURETIC FACTOR (BNP) 2019-12-12 07:36:00 Nadira Oro [facility] COMPREHENSIVE METABOLIC PANEL 2019-12-12 07:36:00 [facility] LACTIC ACID, VENOUS 2019-12-12 07:36:00 Preethi, [facility] LACTIC ACID, VENOUS 2019-12-12 03:06:00 Preethi, [facility] THROMBOELASTOGRAPH (TEG) 2019-12-11 23:55:00 Preethi, [facility] ABORH, MANUAL 2019-12-11 21:58:00 Juanita William [facility] BLOOD GAS, ARTERIAL 2019-12-11 21:52:00 Preethi, [facility] LACTIC ACID, VENOUS 2019-12-11 21:39:00 Preehti, [facility] TYPE AND SCREEN, AUTOMATED 2019-12-11 21:39:00 Preethi, [facility] Logan [facility] BLOOD CULTURE 2019-12-11 19:14:00 Carmela, [facility] LACTIC ACID, VENOUS 2019-12-11 19:14[facility], [facility]ENOUS 2019-12-11 19:14:00 Carmela, [facility] XR CHEST 1 VIEW PORTABLE/BEDSIDE 2019-12-11 17:30:00 Pepe Casey [facility] B-TYPE NATRIURETIC FACTOR (BNP) 2019-12-11 17:26:00 Charley Casey [facility] BASIC METABOLIC PANEL (7) 2019-12-11 17:26:00 Valdemar Casey [facility] PT/APTT 2019-12-11 17:26:[address] [facility] D-DIMER 2019-12-11 17:26:[address] [facility] CBC W/PLT COUNT & AUTO DIFFERENTIAL 2019-12-11 17:26:00 Carmela [facility] ED ECG INTERPRETATION 2019-12-11 17:18:33 Carmela [facility] SARS-COV2/RT-PCR ([facility]) 2019-12-11 17:18:00 Valdemar Casey [facility] ECG 12-LEAD 2019-12-11 17:12:44 CarmelaValdemar nix [facility] Plan of Care Planned Activity Planned Date Details Comments Source Future Scheduled Test 2022-11-17 00:00:00 Lipid panel (proce dure) [code = 09509937] [facility] r Future Scheduled Test 2020-02-08 00:00:00 INFLUENZA VACCINE (#1) [code = INFLUENZA VACCINE (#1)] [facility] r Future Scheduled Test 2019-12-11 00:00:00 Hemoglobin A1c carolee surement (procedure) [code = 73342879] [facility] Future Scheduled Test 1974 00:00:00 DIABETIC EYE EXAM [code = DIABETIC EYE EXAM] [facility] Future Scheduled Test 1974 00:00:00 Diabetic foot exam ination (regime/therapy) [code = 890720814] [facility] Future Scheduled Test 1974 00:00:00 Urine screening fo r protein (procedure) [code = 944660442] [facility] Future Scheduled Test 1970 00:00:00 PNEUMOCOCCAL VACCI NE 0-64 YRS (1 of 1 - PPSV23) [code = PNEUMOCOCCAL VACCINE 0-64 YRS (1 of 1 - PPSV23)] [facility] Future Scheduled Test 1964 00:00:00 Screening for gina gnant neoplasm of colon (procedure) [code = 982003582] [facility] Encounters Start Date/Time End Date/Time Encounter Type Admission Type Attendi [facility] Care Department Encounter ID Source 2019-03-16 08:57:00 2019-03-16 09:27:00 Office Visit Kamille Sherman [facility] [id number] 2019-02-09 13:43:20 2019-02-09 16:43:09 Office Visit Rolf Carmichael [facility] [id number] 2019-02-02 07:19:44 2019-02-02 08:44:15 Office Visit Kamille Sherman [facility] [id number] Results Test Description Test Time Test Comments Results Result Comments Source CHEST 2 VIEWS 2020-04-27 09:07:00 [facility] : 1965 Sex: M [place] [address] Patient Name: KEMAL ZIMMER MR #: [id number] : 1965 Age/Sex: 54/M Req #: [id number] Adm Physician: Ordered by: ARATI ESQUIVEL, REJI Polo MD Report #: [id number] Location: [facility] Room/Bed: Procedure: [id number] DX/CHEST 2 VIEWS Exam Date: 04/27/20 Exam Time: 724 REPORT STATUS: Signed Exam: CHEST 2 VIEWS Date: 04/27/2020 9:07 AM INDICATION: [id number] PNEUMONIA Comparison: None FINDINGS: Lines/Tubes:None Lungs:There are a few ill-defined opacities at the lung bases peripherally. Negative for focal lobar consolidation. Low lung volumes are noted. Pleura:No pleural effusion. No pneumothorax. Heart/Mediastinum:The cardiomediastinal silhouette is normal in size and contour. Bones/Soft Tissues: No acute osseous abnormality. Upper abdomen: Unremarkable. IMPRESSION: Ill-defined linear opacities at the lung bases peripherally. Findings are concerning for multifocal pneumonia. Consider covid infection. Low lung volumes. Signed by: Beau Nuñez MD on 04/27/2020 9:08 AM Dictated By: BEAU NUÑEZ MD 7 Transcribed By: JAYNA on 04/27/20907 COPY TO: REJI BROUSSARD MR, BRAIN, WITH 2020-03-22 11:24:00 Unlisted Reason for Exam - Click Yes and Enter Reason Below->Yes Unlisted Reason for Exam->[facility] : 1965 Sex: MFINAL REPORT MR, BRAIN, WITH \\T\\ WITHOUT CONTRAST INDICATION: Unlisted Reason for ExamCEREBRITIS Technique: MRI of the brain utilizing axial T1, T2, FLAIR, GRE, DWI, sagittal T1; and postgadolinium axial, sagittal, and coronal T1-weighted images. COMPARISON: January 10, 2020 FINDINGS: Decreased T2/FLAIR hyperintensity within the middle cerebellar peduncles, cerebellar hemispheres, centrum semiovale and paramedian subcortical white matter compared to prior exam. Interval volume loss within the aforementioned areas. Minimal residual DTI hyperintensity within the middle cerebellar peduncles cerebellar hemispheres, bifrontal paramedian subcortical white matter and the centrum semiovale bilaterally, is seen to represent T2 shine through when compared to concomitant images on ADC. No concomitant enhancement. No new signal abnormality at the parenchyma. No restricted diffusion to suggest interval infarct. No abnormal susceptibility. No hydrocephalus. Orbits are within normal limits. No obstructive paranasal sinus disease. Bilateral mastoid effusions. Additional findings: None. IMPRESSION: Decreased mass effect and decreased extent of previously described T2 hyperintense signal abnormality within the white matter tracts of the bilateral middle cerebellar peduncles, cerebellar hemispheres, frontal paramedian subcortical white matter and centrum semiovale. No new signal abnormality. Findings are compatible with interval evolution versus resolution of previously described intracranial pathology (differential including leukoencephalopathy, demyelinating disease and/or posterior reversible encephalopathy syndrome). Signed: Yosi Vidal MDReport Verified Date/Time: 03/22/2020 11:24:14 Reading Location: [address] Neuro Reading Room brain without & with IV contrast 2020-03-22 11:24:00 Interface, External Ris In - 03/22/2020 11:26 AM CDTFINAL REPORT MR, BRAIN, WITH \\T\\ WITHOUT CONTRAST INDICATION: Unlisted Reason for ExamCEREBRITIS Technique: MRI of the brain utilizing axial T1, T2, FLAIR, GRE, DWI, sagittal T1; and postgadolinium axial, sagittal, and coronal T1-weighted images. COMPARISON: January 10, 2020 FINDINGS: Decreased T2/FLAIR hyperintensity within th e middle cerebellar peduncles, cerebellar hemispheres, centrum semiovale and paramedian subcortical white matter compared to prior exam. Interval volume loss within the aforementioned areas. Minimal residual DTI hyperintensity within the middle cerebellar peduncles cerebellar hemispheres, bifrontal paramedian subcortical white matter and the centrum semiovale bilaterally, is seen to represent T2 shine through when compared to concomitant images on ADC. No concomitant enhancement. No new signal abnormality at the parenchyma. No restricted diffusion to suggest interval infarct. No abnormal susceptibility. No hydrocephalus. Orbits are within normal limits. No obstructive paranasal sinus disease. Bilateral mastoid effusions. Additional findings: None. IMPRESSION: Decreased mass effect and decreased extent of previously described T2 hyperintense signal abnormality within the white matter tracts of the bilateral middle cerebellar peduncles, cerebellar hemispheres, frontal paramedian subcortical white matter and centrum semiovale. No new signal abnormality. Findings are compatible with interval evolution versus resolution of previously described intracranial pathology (differential including leukoencephalopathy, demyelinating disease and/or posterior reversible encephalopathy syndrome). Signed: Yosi Vidaleport Verified Date/Time: 03/22/2020 11:24:14 Reading Location: [facility] C013V Neuro Reading Room C [facility] POC-Glucose meter 2020-02-15 11:45:00 Test Item POC-Glucose Meter (test code = 1538) 224 mg/dL 70-110 H : TESTED AT [address], [address]: Marketing Strategy Manager/Clinical Laboratory Technician ID = [id number] for TAMIKO WHITMAN Lab Interpretation (test code = 79466-4) [facility]normal [facility] [id number] 11:45:00* Test Item Value Reference Range Interpretation Comments POC-GLUCOSE METER (BEAKER) (test code = 1538) 224 mg/dL 70-110 H : TESTED AT [address], [address]: Marketing Strategy Manager/Clinical Laboratory Technician ID = [id number] for GANT-SEBASTIAN PABONE POCT-GLUCOSE [id number] 06:51:00* Test Item Value Reference Range Interpretation Comments POC-GLUCOSE METER (BEAKER) (test code = 1538) 188 mg/dL 70-110 H : TESTED AT [address], [address]: Marketing Strategy Manager/Clinical Laboratory Technician ID = [id number] for MSIBI, MNCEDISI POCT-GLUCOSE [id number] 00:25:00* Test Item Value Reference Range Interpretation Comments POC-GLUCOSE METER (BEAKER) (test code = 1538) 201 mg/dL 70-110 H : TESTED AT [address], [address]: Marketing Strategy Manager/Clinical Laboratory Technician ID = [id number] for MSIBI, MNCEDISI POCT-GLUCOSE [id number] 18:40:00* Test Item Value Reference Range Interpretation Comments POC-GLUCOSE METER (BEAKER) (test code = 1538) 175 mg/dL 70-110 H : TESTED AT [facility] [address] [place] [place], [address]: Marketing Strategy Manager/Clinical Laboratory Technician ID = [id number] for ESTUARDO GALDAMEZ POCT-GLUCOSE [id number] 12:06:00* Test Item Value Reference Range Interpretation Comments POC-GLUCOSE METER (BEAKER) (test code = 1538) 244 mg/dL 70-110 H : TESTED AT [facility] [address] [facility], [address]: Marketing Strategy Manager/Clinical Laboratory Technician ID = [id number] for SABINE BURROUGHS B-type Natriuretic Factor (BNP)2020-02-14 07:05:00* Test Item Value Reference Range Interpretation Comments BNP (test code = 53474-6) 357 pg/mL 0-100 H LOY (test code = LOY) Marketing Strategy Manager ID - [id number] Lab Interpretation (test code = 24236-3) Abnormal [facility] NATRIURETIC FACTOR (BNP)2020-02-14 07:05:00 * Test Item Value Reference Range Interpretation Comments B-TYPE NATRIURETIC PEPTIDE (BEAKER) (test code = 700) 357 pg/mL 0-100 H Marketing Strategy Manager ID - EDASIBasic Metabolic [id number] 07:01:00* Test Item Value Reference Range Interpretation Comments Sodium (test code = 2951-2) 135 meq/L 136-145 L Potassium (test code = 2823-3) 4.1 meq/L 3.5-5.1 Chloride (test code = 2075-0) 99 meq/L 98-107 CO2 (test code = 8-9) 28 meq/L 22-29 BUN (test code = 3094-0) 32 mg/dL 7-21 H Creatinine (test code = 2160-0) 1.10 mg/dL 0.57-1.25 Glucose (test code = 2345-7) 198 mg/dL 70-105 H Calcium (test code = 23961-2) 8.3 mg/dL 8.4-10.2 L EGFR (test code = 76473-8) 69 mL/min/1.73 sq m ESTIMATED GFR IS NOT ACCURATE CREATININE CLEARANCE IN PREDICTING GLOMERULAR FILTRATION RATE. ESTIMATED GFR IS NOT APPLICABLE FOR DIALYSIS PATIENTS. LOY (test code = LOY) Marketing Strategy Manager ID - ALLISON M Lab Interpretation (test code = 48186-4) [facility]2020-[facility] 07:01:00* Test Item Value Reference Range Interpretation Comments Magnesium (test code = 66497-3) 2.0 mg/dL 1.6-2.6 LOY (test code = LOY) Marketing Strategy Manager ANGELINA Dhillon Lab Interpretation (test code = 09681-6) Normal [facility]2020-09-07 07:01:00* Test Item Value Reference Range Interpretation Comments MAGNESIUM (BEAKER) (test code = 627) 2.0 mg/dL 1.6-2.6 Marketing Strategy Manager ID Monisha COOPER MBASIC METABOLIC [id number] 07:01:00* Test Item Value Reference Range Interpretation Comments SODIUM (BEAKER) (test code = 381) 135 meq/L 136-145 L POTASSIUM (BEAKER) (test code = 379) 4.1 meq/L 3.5-5.1 CHLORIDE (BEAKER) (test code = 382) 99 meq/L 98-107 CO2 (BEAKER) (test code = 355) 28 meq/L 22-29 BLOOD UREA NITROGEN (BEAKER) (test code = 354) 32 mg/dL 7-21 H CREATININE (BEAKER) (test code = 358) 1.10 mg/dL 0.57-1.25 GLUCOSE RANDOM (BEAKER) (test code = 652) 198 mg/dL 70-105 H CALCIUM (BEAKER) (test code = 697) 8.3 mg/dL 8.4-10.2 L EGFR (BEAKER) (test code = 1092) 69 mL/min/1.73 sq m ESTIMATED GFR IS NOT ACCURATE CREATININE CLEARANCE IN PREDICTING GLOMERULAR FILTRATION RATE. ESTIMATED GFR IS NOT APPLICABLE FOR DIALYSIS PATIENTS. Marketing Strategy Manager ANGELINA Liaoood gas, [id number] 06:38:00* Test Item Value Reference Range Interpretation Comments pH, Tavo (test code = 2746-6) 7.40 7.32-7.42 pCO2, Tavo (test code = 755) 55 41- 51 mmHg H pO2, Tavo (test code = 2705-2) 81 25- 40 mmHg H O2 Sat, Tavo (test code = 2711-0) 95.7 % 40-70 H HCO3, Tavo (test code = 51528-9) 34 mmol/L 21-29 H Base Excess, Tavo (test code = 1927-3) 7.7 mmol/L -2-3 H Patient Temperature (test code = 8310-5) 37.0 C FIO2 (test code = 1819) 40 % Lab Interpretation (test code = 46639-1) Abnormal [facility] CenterBL[facility] G[facility], [id number] 06:38:00* Test Item Value Reference Range Interpretation Comments PH VENOUS (BEAKER) (test code = 701) 7.40 7.32-7.42 PCO2 VENOUS (BEAKER) (test code = 755) 55 mmHg 41-51 H PO2 VENOUS (BEAKER) (test code = 702) 81 mmHg 25-40 H O2 SATURATION VENOUS (BEAKER) (test code = 703) 95.7 % 40.0-7 0.0 H HCO3 VENOUS (BEAKER) (test code = 705) 34 mmol/L 21-29 H BASE EXCESS VENOUS (BEAKER) (test code = 704) 7.7 mmol/L -2.0-3.0 H PATIENT TEMPERATURE (BEAKER) (test code = 1818) 37.0 C FIO2 (BEAKER) (test code = 1819) 40.0 % POCT-GLUCOSE [id number] 23:29:00* Test Item Value Reference Range Interpretation Comments POC-GLUCOSE METER (BEAKER) (test code = 1538) 155 mg/dL 70-110 H : TESTED AT [address], [address]: Marketing Strategy Manager/Clinical Laboratory Technician ID = [id number] for TIARA PATTON POCT-GLUCOSE [id number] 18:07:00* Test Item Value Reference Range Interpretation Comments POC-GLUCOSE METER (BEAKER) (test code = 1538) 194 mg/dL 70-110 H : TESTED AT [address], [address]: Marketing Strategy Manager/Clinical Laboratory Technician ID = [id number] for ALEK MONTGOMERY POCT-GLUCOSE [id number] 06:05:00* Test Item Value Reference Range Interpretation Comments POC-GLUCOSE METER (BEAKER) (test code = 1538) 205 mg/dL 70-110 H : TESTED AT [address], [address]: Marketing Strategy Manager/Clinical Laboratory Technician ID = [id number] for MARIAH RODRÍGUEZ RAD, CHEST, 1 VIEW, NON [id number] 05:49:00Reason for exam:->Chest painShould this be performed at the bedside?->YesFINAL REPORT CLINICAL INDICATION: Chest pain Comparison: 02/05/2020 A single view of the chest is submitted. The cardiac silhouette is within normal limits for size. The lung volumes are low but similar to previous. Diffusely coarsened interstitial opacities and patchy airspace opacification throughout both lungs are nonspecific and may reflect some combination of atelectasis and edema though multifocal pneumonitis should be excluded clinically. Blunting of the right costophrenic sulcus suggests a small effusion or pleural thickening. There is no pneumothorax. A tracheostomy tube is stable in position. Signed: Vj Saunders MDReport Verified Date/Time: 02/13/2020 05:49:05 chest 1 view portable / [id number] 05:49:00Interface, External Ris In - 02/13/2020 5:51 AM CDTFINAL REPORT CLINICAL INDICATION: Chest pain Comparison: 02/05/2020 A single view of the chest is submitted. The cardiac silhouette is within normal limits for size. The lung volumes are low but similar to previous. Diffusely coarsened interstitial opacities and patchy airspace opacification throughout both lungs are nonspecific and may reflect some combination of atelectasis and edema though multifocal pneumonitis should be excluded clinically. Blunting of the right costophrenic sulcus suggests a small effusion or pleural thickening. There is no pneumothorax. A tracheostomy tube is stable in position. Signed: Vj Saunders MDReport Verified Date/Time: 02/13/2020 05:49:05 [facility]2020-09-06 05:22:00* Test Item Value Reference Range Interpretation Comments MAGNESIUM (BEAKER) (test code = 627) 1.7 mg/dL 1.6-2.6 Marketing Strategy Manager ID - ALLISON MBASIC METABOLIC [id number] 05:22:00* Test Item Value Reference Range Interpretation Comments SODIUM (BEAKER) (test code = 381) 138 meq/L 136-145 POTASSIUM (BEAKER) (test code = 379) 3.8 meq/L 3.5-5.1 CHLORIDE (BEAKER) (test code = 382) 101 meq/L 98-107 CO2 (BEAKER) (test code = 355) 29 meq/L 22-29 BLOOD UREA NITROGEN (BEAKER) (test code = 354) 41 mg/dL 7-21 H CREATININE (BEAKER) (test code = 358) 1.10 mg/dL 0.57-1.25 GLUCOSE RANDOM (BEAKER) (test code = 652) 169 mg/dL 70-105 H CALCIUM (BEAKER) (test code = 697) 8.4 mg/dL 8.4-10.2 EGFR (BEAKER) (test code = 1092) 69 mL/min/1.73 sq m ESTIMATED GFR IS NOT ACCURATE CREATININE CLEARANCE IN PREDICTING GLOMERULAR FILTRATION RATE. ESTIMATED GFR IS NOT APPLICABLE FOR DIALYSIS PATIENTS. Marketing Strategy Manager ID - ALLISON [facility] [id number] 05:15:00* Test Item Value Reference Range Interpretation Comments Troponin I (test code = 74391-3) <0.01 0-0.03 LOY (test code = LOY) Troponin I (TnI) levels must be interpreted in the context of the presenting symptoms and the clinical findings. Elevated TnI levels indicate myocardial damage, but are not specific for ischemic heart disease. Elevated TnI levels are seen in patients with other cardiac conditions (including myocarditis and congestive heart failure), and slight TnI elevations occur in patients with other conditions, including sepsis, renal failure, acidosis, acute neurological disease, and persistent tachyarrhythmia.Marketing Strategy Manager ID - ALLISON M Lab Interpretation (test code = 17096-1) Normal [facility]TR[facility] [id number] 05:15:00* Test Item Value Reference Range Interpretation Comments TROPONIN I (BEAKER) (test code = 397) < ng/mL 0.00-0.03 Troponin I (TnI) levels must be interpreted in the context of the presenting sym ptoms and the clinical findings. Elevated TnI levels indicate myocardial damage, but are not specific for ischemic heart disease. Elevated TnI levels are seen in patients with other cardiac conditions (including myocarditis and congestive h eart failure), and slight TnI elevations occur in patients with other conditions , including sepsis, renal failure, acidosis, acute neurological disease, and per sistent tachyarrhythmia.Marketing Strategy Manager ID - ALLISON MPOCT-GLUCOSE [id number] 23:28:00* Test Item Value Reference Range Interpretation Comments POC-GLUCOSE METER (BEAKER) (test code = 1538) 175 mg/dL 70-110 H : [place]ED [place] [id number] [facility], [address]: Marketing Strategy Manager/Clinical Laboratory Technician ID = [id number] for Daniela Locke POCT-GLUCOSE [id number] 17:44:00* Test Item Value Reference Range Interpretation Comments POC-GLUCOSE METER (BEAKER) (test code = 1538) 145 mg/dL 70-110 H : TESTED AT [address], [address]: Marketing Strategy Manager/Clinical Laboratory Technician ID = [id number] for Rain Dubon POCT-GLUCOSE [id number] 05:38:00* Test Item Value Reference Range Interpretation Comments POC-GLUCOSE METER (BEAKER) (test code = 1538) 144 mg/dL 70-110 H : TESTED AT [address], [address]: Marketing Strategy Manager/Clinical Laboratory Technician ID = [id number] for SAMEERA RON [id number] 04:09:00* Test Item Value Reference Range Interpretation Comments MAGNESIUM (BEAKER) (test code = 627) 1.9 mg/dL 1.6-2.6 Marketing Strategy Manager ID - ALLISON MBASIC METABOLIC [id number] 04:09:00* Test Item Value Reference Range Interpretation Comments SODIUM (BEAKER) (test code = 381) 145 meq/L 136-145 POTASSIUM (BEAKER) (test code = 379) 3.9 meq/L 3.5-5.1 CHLORIDE (BEAKER) (test code = 382) 105 meq/L 98-107 CO2 (BEAKER) (test code = 355) 32 meq/L 22-29 H BLOOD UREA NITROGEN (BEAKER) (test code = 354) 57 mg/dL 7-21 H CREATININE (BEAKER) (test code = 358) 1.14 mg/dL 0.57-1.25 GLUCOSE RANDOM (BEAKER) (test code = 652) 161 mg/dL 70-105 H CALCIUM (BEAKER) (test code = 697) 8.5 mg/dL 8.4-10.2 EGFR (BEAKER) (test code = 1092) 67 mL/min/1.73 sq m ESTIMATED GFR IS NOT ACCURATE CREATININE CLEARANCE IN PREDICTING GLOMERULAR FILTRATION RATE. ESTIMATED GFR IS NOT APPLICABLE FOR DIALYSIS PATIENTS. Marketing Strategy Manager ID - ALLISON [facility] (Hemogram only)2020-02-12 03:45:00* Test Item Value Reference Range Interpretation Comments WBC (test code = 6690-2) 6.7 3.5- 10.5 K/L RBC (test code = 789-8) 2.82 4.63- 6.08 M/L L MCHC (test code = 786-4) 30.2 32.3- 36.5 GM/DL L Hematocrit (test code = 4544-3) 27.5 % 40.1-51 L MCV (test code = 787-2) 97.5 fL 79-92.2 H MCH (test code = 785-6) 29.4 pg 25.7-32.2 RDW (test code = 788-0) 13.3 % 11.6-14.4 Platelets (test code = 777-3) 148 150- 450 K/CU MM L MPV (test code = 41679-9) 12.6 fL 9.4-12.4 H nRBC (test code = 413) 0 0- 0 /100 WBC Lab Interpretation (test code = 24044-4) Abnormal [facility] (HEMOGRAM ONLY)2020-02-12 03:45:00* Test Item Value Reference Range Interpretation Comments WHITE BLOOD CELL COUNT (BEAKER) (test code = 775) 6.7 K/ L 3.5- 10.5 RED BLOOD CELL COUNT (BEAKER) (test code = 761) 2.82 M/ L 4.63-6 .08 L HEMOGLOBIN (BEAKER) (test code = 410) 8.3 GM/DL 13.7-17.5 L HEMATOCRIT (BEAKER) (test code = 411) 27.5 % 40.1-51.0 L MEAN CORPUSCULAR VOLUME (BEAKER) (test code = 753) 97.5 fL 79. 0-92.2 H MEAN CORPUSCULAR HEMOGLOBIN (BEAKER) (test code = 751) 29.4 pg 25.7-32.2 MEAN CORPUSCULAR HEMOGLOBIN CONC (BEAKER) (test code = 752) 30.2 GM/DL 32.3-36.5 L RED CELL DISTRIBUTION WIDTH (BEAKER) (test code = 412) 13.3 % 11.6-14.4 PLATELET COUNT (BEAKER) (test code = 756) 148 K/CU MM 150-450 L MEAN PLATELET VOLUME (BEAKER) (test code = 754) 12.6 fL 9.4-12 .4 H NUCLEATED RED BLOOD CELLS (BEAKER) (test code = 413) 0 /100 WBC 0 -0 POCT-GLUCOSE [id number] 23:43:00* Test Item Value Reference Range Interpretation Comments POC-GLUCOSE METER (BEAKER) (test code = 1538) 171 mg/dL 70-110 H : TESTED AT [facility] [address] [facility], [address]: Marketing Strategy Manager/Clinical Laboratory Technician ID = [id number] for SAMEERA RON POCT-GLUCOSE [id number] 18:04:00* Test Item Value Reference Range Interpretation Comments POC-GLUCOSE METER (BEAKER) (test code = 1538) 160 mg/dL 70-110 H : TESTED AT [place] [id number] [facility] [place], [address]: Marketing Strategy Manager/Clinical Laboratory Technician ID = [id number] for GANTTASHA TAMIKO ESTELITA, [id number] 12:36:00* Test Item Value Reference Range Interpretation Comments ABO Grouping (test code = 2588) A Rh Factor (test code = 2589) [facility], [id number] 12:32:00* Test Item Value Reference Range Interpretation Comments Ab Scrn (test code = 890-4) NEGATIVE Echo 2 [facility] 12:15:00* Test Item Value Reference Range Interpretation Comments PTT (test code = 25456-9) 20.7 22.5- 36.0 seconds L Lab Interpretation (test code = 03777-5) Abnormal [facility] 12:15:00* Test Item Value Reference Range Interpretation Comments PARTIAL THROMBOPLASTIN TIME (BEAKER) (test code = 760) 20.7 seconds 22.5-36.0 L Prothrombin time/[id number] 12:08:00* Test Item Value Reference Range Interpretation Comments Protime (test code = 5902-2) 12.3 11.9- 14.2 seconds INR (test code = 6301-6) 0.94 <=5.90 LOY (test code = LOY) Effective 11/04/2018: PT Refe rence Range ChangeNew: 11.9- 14.2 Previous: 11.7-14.7 RECOMMENDED COUMADIN/WARFARIN INR THERAPY RANGESSTANDARD DOSE: 2.0-3.0 Includes: PROPHYLAXIS for venous thrombosis, sys temic embolization; TREATMENT for venous thrombosis and/or pulmonary embolus.HIGH RISK: Target INR is 2.5-3.5 for patients wiht mechanical heart valves. Lab Interpretation (test code = 22853-3) Normal [facility] CenterPROT[facility] TIME/[id number] 12:08:00* Test Item Value Reference Range Interpretation Comments PROTIME (DASHAWN) (test code = 759) 12.3 seconds 11.9-14.2 INR (GRACYAKER) (test code = 370) 0.94 <=5.90 Effective 11/04/2018: PT Reference Range ChangeNew: 11.9-14.2 Previous: 11.7-14. 7RECOMMENDED COUMADIN/WARFARIN INR THERAPY RANGESSTANDARD DOSE: 2.0-3.0 Include s: PROPHYLAXIS for venous thrombosis, systemic embolization; TREATMENT for venou s thrombosis and/or pulmonary embolus.HIGH RISK: Target INR is 2.5-3.5 for patie nts wiht mechanical heart valves.POCT-GLUCOSE [id number] 11:58:00* Test Item Value Reference Range Interpretation Comments POC-GLUCOSE METER (DASHAWN) (test code = 1538) 146 mg/dL 70-110 H : TESTED AT [facility] [address] [facility] [place], [address]: Marketing Strategy Manager/Clinical Laboratory Technician ID = [id number] for TAMIKO ROJAS CBC (HEMOGRAM ONLY)2020-02-11 11:53:00* Test Item Value Reference Range Interpretation Comments WHITE BLOOD CELL COUNT (DASHAWN) (test code = 775) 6.5 K/ L 3.5- 10.5 RED BLOOD CELL COUNT (BEAKER) (test code = 761) 2.71 M/ L 4.63-6 .08 L HEMOGLOBIN (BEAKER) (test code = 410) 8.0 GM/DL 13.7-17.5 L HEMATOCRIT (BEAKER) (test code = 411) 26.4 % 40.1-51.0 L MEAN CORPUSCULAR VOLUME (BEAKER) (test code = 753) 97.4 fL 79. 0-92.2 H MEAN CORPUSCULAR HEMOGLOBIN (BEAKER) (test code = 751) 29.5 pg 25.7-32.2 MEAN CORPUSCULAR HEMOGLOBIN CONC (BEAKER) (test code = 752) 30.3 GM/DL 32.3-36.5 L RED CELL DISTRIBUTION WIDTH (BEAKER) (test code = 412) 13.5 % 11.6-14.4 PLATELET COUNT (BEAKER) (test code = 756) 180 K/CU MM 150-450 MEAN PLATELET VOLUME (BEAKER) (test code = 754) 12.5 fL 9.4-12 .4 H NUCLEATED RED BLOOD CELLS (BEAKER) (test code = 413) 0 /100 WBC 0 -0 Hepatic function [id number] 06:41:00* Test Item Value Reference Range Interpretation Comments Protein, Total (test code = 2885-2) 7.0 6.0- 8.3 gm/dL Albumin (test code = 46907-0) 3.0 g/dL 3.5-5 L Total Bilirubin (test code = 1974-2) 1.8 mg/dL 0.2-1.2 H Bilirubin, Direct (test code = 1967-7) 1.4 mg/dL 0.1-0.5 H Alkaline Phosphatase (test code = 6768-6) 616 U/L 40-150 H AST (test code = 1920-8) 112 U/L 5-34 H ALT (test code = 1742-6) 335 U/L 6-55 H LOY (test code = LOY) Marketing Strategy Manager ID - EDASI Lab Interpretation (test code = 42284-4) Abnormal [facility] [id number] 06:41:00* Test Item Value Reference Range Interpretation Comments TOTAL PROTEIN (BEAKER) (test code = 770) 7.0 gm/dL 6.0-8.3 ALBUMIN (BEAKER) (test code = 1145) 3.0 g/dL 3.5-5.0 L BILIRUBIN TOTAL (BEAKER) (test code = 377) 1.8 mg/dL 0.2-1.2 H BILIRUBIN DIRECT (BEAKER) (test code = 706) 1.4 mg/dL 0.1-0.5 H ALKALINE PHOSPHATASE (BEAKER) (test code = 346) 616 U/L 40-150 H AST (SGOT) (BEAKER) (test code = 353) 112 U/L 5-34 H ALT (SGPT) (BEAKER) (test code = 347) 335 U/L 6-55 H Marketing Strategy Manager ID - EDASIBASIC METABOLIC [id number] 06:41:00* Test Item Value Reference Range Interpretation Comments SODIUM (BEAKER) (test code = 381) 144 meq/L 136-145 POTASSIUM (BEAKER) (test code = 379) 4.3 meq/L 3.5-5.1 CHLORIDE (BEAKER) (test code = 382) 103 meq/L 98-107 CO2 (BEAKER) (test code = 355) 30 meq/L 22-29 H BLOOD UREA NITROGEN (BEAKER) (test code = 354) 71 mg/dL 7-21 H CREATININE (BEAKER) (test code = 358) 1.21 mg/dL 0.57-1.25 GLUCOSE RANDOM (BEAKER) (test code = 652) 160 mg/dL 70-105 H CALCIUM (BEAKER) (test code = 697) 8.9 mg/dL 8.4-10.2 EGFR (BEAKER) (test code = 1092) 62 mL/min/1.73 sq m ESTIMATED GFR IS NOT ACCURATE CREATININE CLEARANCE IN PREDICTING GLOMERULAR FILTRATION RATE. ESTIMATED GFR IS NOT APPLICABLE FOR DIALYSIS PATIENTS. Marketing Strategy Manager ID - EDASIPOCT-GLUCOSE [id number] 06:28:00* Test Item Value Reference Range Interpretation Comments POC-GLUCOSE METER (BEAKER) (test code = 1538) 162 mg/dL 70-110 H : TESTED AT [facility] [address] [facility] [place], [address]: Marketing Strategy Manager/Clinical Laboratory Technician ID = [id number] for LETA HENDRICKSON POCT-GLUCOSE [id number] 00:05:00* Test Item Value Reference Range Interpretation Comments POC-GLUCOSE METER (BEAKER) (test code = 1538) 105 mg/dL 70-110 : TESTED AT [facility] [address] [facility] [place], [address]: Marketing Strategy Manager/Clinical Laboratory Technician ID = [id number] for LETA HENDRICKSON POCT-GLUCOSE [id number] 11:42:00* Test Item Value Reference Range Interpretation Comments POC-GLUCOSE METER (BEAKER) (test code = 1538) 112 mg/dL 70-110 H : TESTED AT [facility] [address] [facility] [place], [address]: Marketing Strategy Manager/Clinical Laboratory Technician ID = [id number] for FREDY EAGLE HEPATIC FUNCTION [id number] 07:03:00* Test Item Value Reference Range Interpretation Comments TOTAL PROTEIN (BEAKER) (test code = 770) 6.6 gm/dL 6.0-8.3 ALBUMIN (BEAKER) (test code = 1145) 2.8 g/dL 3.5-5.0 L BILIRUBIN TOTAL (BEAKER) (test code = 377) 1.7 mg/dL 0.2-1.2 H BILIRUBIN DIRECT (BEAKER) (test code = 706) 1.2 mg/dL 0.1-0.5 H ALKALINE PHOSPHATASE (BEAKER) (test code = 346) 572 U/L 40-150 H AST (SGOT) (BEAKER) (test code = 353) 110 U/L 5-34 H ALT (SGPT) (BEAKER) (test code = 347) 338 U/L 6-55 H Marketing Strategy Manager ID - LAOperator ID - PIAYA LBASIC METABOLIC [id number] 06:37:00* Test Item Value Reference Range Interpretation Comments SODIUM (BEAKER) (test code = 381) 144 meq/L 136-145 POTASSIUM (BEAKER) (test code = 379) 4.3 meq/L 3.5-5.1 CHLORIDE (BEAKER) (test code = 382) 108 meq/L 98-107 H CO2 (BEAKER) (test code = 355) 27 meq/L 22-29 BLOOD UREA NITROGEN (BEAKER) (test code = 354) 89 mg/dL 7-21 H CREATININE (BEAKER) (test code = 358) 1.22 mg/dL 0.57-1.25 GLUCOSE RANDOM (BEAKER) (test code = 652) 224 mg/dL 70-105 H CALCIUM (BEAKER) (test code = 697) 9.0 mg/dL 8.4-10.2 EGFR (BEAKER) (test code = 1092) 62 mL/min/1.73 sq m ESTIMATED GFR IS NOT ACCURATE CREATININE CLEARANCE IN PREDICTING GLOMERULAR FILTRATION RATE. ESTIMATED GFR IS NOT APPLICABLE FOR DIALYSIS PATIENTS. Marketing Strategy Manager ID - LAPOCT-GLUCOSE [id number] 06:04:00* Test Item Value Reference Range Interpretation Comments POC-GLUCOSE METER (BEAKER) (test code = 1538) 192 mg/dL 70-110 H : TESTED AT [facility] [address] [facility] [place], [address]: Marketing Strategy Manager/Clinical Laboratory Technician ID = [id number] for NICOLE MARINELLI CBC (HEMOGRAM ONLY)2020-02-10 04:33:00* Test Item Value Reference Range Interpretation Comments WHITE BLOOD CELL COUNT (BEAKER) (test code = 775) 8.1 K/ L 3.5- 10.5 RED BLOOD CELL COUNT (BEAKER) (test code = 761) 2.77 M/ L 4.63-6 .08 L HEMOGLOBIN (BEAKER) (test code = 410) 8.2 GM/DL 13.7-17.5 L HEMATOCRIT (BEAKER) (test code = 411) 27.9 % 40.1-51.0 L MEAN CORPUSCULAR VOLUME (BEAKER) (test code = 753) 100.7 fL 79. 0-92.2 H MEAN CORPUSCULAR HEMOGLOBIN (BEAKER) (test code = 751) 29.6 pg 25.7-32.2 MEAN CORPUSCULAR HEMOGLOBIN CONC (BEAKER) (test code = 752) 29.4 GM/DL 32.3-36.5 L RED CELL DISTRIBUTION WIDTH (BEAKER) (test code = 412) 13.5 % 11.6-14.4 PLATELET COUNT (BEAKER) (test code = 756) 167 K/CU MM 150-450 MEAN PLATELET VOLUME (BEAKER) (test code = 754) 12.9 fL 9.4-12 .4 H NUCLEATED RED BLOOD CELLS (BEAKER) (test code = 413) 0 /100 WBC 0 -0 POCT-GLUCOSE [id number] 00:46:00* Test Item Value Reference Range Interpretation Comments POC-GLUCOSE METER (BEAKER) (test code = 1538) 242 mg/dL 70-110 H : TESTED AT [facility] [address] [facility] [place], [address]: Marketing Strategy Manager/Clinical Laboratory Technician ID = [id number] for NICOLE MARINELLI POCT-GLUCOSE [id number] 18:07:00* Test Item Value Reference Range Interpretation Comments POC-GLUCOSE METER (BEAKER) (test code = 1538) 100 mg/dL 70-110 : TESTED AT [address], [address]: Marketing Strategy Manager/Clinical Laboratory Technician ID = [id number] for GALDAMEZ, ESTUARDO POCT-GLUCOSE [id number] 12:28:00* Test Item Value Reference Range Interpretation Comments POC-GLUCOSE METER (BEAKER) (test code = 1538) 115 mg/dL 70-110 H : TESTED [place] [id number] [facility] [place], [address]: Marketing Strategy Manager/Clinical Laboratory Technician ID = [id number] for GALDAMEZ, ESTUARDO POCT-GLUCOSE [id number] 05:41:00* Test Item Value Reference Range Interpretation Comments POC-GLUCOSE METER (BEAKER) (test code = 1538) 166 mg/dL 70-110 H : TESTED AT [address], [address]: Marketing Strategy Manager/Clinical Laboratory Technician ID = [id number] for NICOLE MARINELLI HEPATIC FUNCTION [id number] 04:19:00* Test Item Value Reference Range Interpretation Comments TOTAL PROTEIN (BEAKER) (test code = 770) 7.1 gm/dL 6.0-8.3 ALBUMIN (BEAKER) (test code = 1145) 3.0 g/dL 3.5-5.0 L BILIRUBIN TOTAL (BEAKER) (test code = 377) 1.3 mg/dL 0.2-1.2 H BILIRUBIN DIRECT (BEAKER) (test code = 706) 1.0 mg/dL 0.1-0.5 H ALKALINE PHOSPHATASE (BEAKER) (test code = 346) 612 U/L 40-150 H AST (SGOT) (BEAKER) (test code = 353) 122 U/L 5-34 H ALT (SGPT) (BEAKER) (test code = 347) 388 U/L 6-55 H Marketing Strategy Manager ID - EDASIBASIC METABOLIC [id number] 04:19:00* Test Item Value Reference Range Interpretation Comments SODIUM (BEAKER) (test code = 381) 153 meq/L 136-145 H POTASSIUM (BEAKER) (test code = 379) 4.3 meq/L 3.5-5.1 CHLORIDE (BEAKER) (test code = 382) 110 meq/L 98-107 H CO2 (BEAKER) (test code = 355) 31 meq/L 22-29 H BLOOD UREA NITROGEN (BEAKER) (test code = 354) 119 mg/dL 7-21 H CREATININE (BEAKER) (test code = 358) 1.38 mg/dL 0.57-1.25 H GLUCOSE RANDOM (BEAKER) (test code = 652) 201 mg/dL 70-105 H CALCIUM (BEAKER) (test code = 697) 9.3 mg/dL 8.4-10.2 EGFR (BEAKER) (test code = 1092) 53 mL/min/1.73 sq m ESTIMATED GFR IS NOT ACCURATE CREATININE CLEARANCE IN PREDICTING GLOMERULAR FILTRATION RATE. ESTIMATED GFR IS NOT APPLICABLE FOR DIALYSIS PATIENTS. Marketing Strategy Manager ID - EDASIPROTHROMBIN TIME/[id number] 04:14:00* Test Item Value Reference Range Interpretation Comments PROTIME (BEAKER) (test code = 759) 13.5 seconds 11.9-14.2 INR (BEAKER) (test code = 370) 1.06 <=5.90 Effective 11/04/2018: PT Reference Range ChangeNew: 11.9-14.2 Previous: 11.7-14. 7RECOMMENDED COUMADIN/WARFARIN INR THERAPY RANGESSTANDARD DOSE: 2.0-3.0 Include s: PROPHYLAXIS for venous thrombosis, systemic embolization; TREATMENT for venou s thrombosis and/or pulmonary embolus.HIGH RISK: Target INR is 2.5-3.5 for patie nts wiht mechanical heart valves.CBC with platelet count + automated diff 2020-02-09 03:56:00* Test Item Value Reference Range Interpretation Comments WBC (test code = 6690-2) 6.6 3.5- 10.5 K/L RBC (test code = 789-8) 2.75 4.63- 6.08 M/L L MCHC (test code = 786-4) 28.8 32.3- 36.5 GM/DL L Hematocrit (test code = 4544-3) 28.1 % 40.1-51 L MCV (test code = 787-2) 102.2 fL 79-92.2 H MCH (test code = 785-6) 29.5 pg 25.7-32.2 RDW (test code = 788-0) 13.8 % 11.6-14.4 Platelets (test code = 777-3) 149 150- 450 K/CU MM L MPV (test code = 30709-0) 12.5 fL 9.4-12.4 H nRBC (test code = 413) 0 0- 0 /100 WBC % Neutros (test code = 429) 74 % % Lymphs (test code = 430) 10 % % Monos (test code = 431) 7 % % Eos (test code = 432) 7 % % Baso (test code = 437) 1 % # Neutros (test code = 670) 4.93 1.78- 5.38 K/L # Lymphs (test code = 414) 0.67 1.32- 3.57 K/L L # Monos (test code = 415) 0.48 0.30- 0.82 K/L # Eos (test code = 416) 0.44 0.04- 0.54 K/L # Baso (test code = 417) 0.03 0.01- 0.08 K/L Immature Granulocytes-Relative (test code = 2801) 1 % 0-1 Lab Interpretation (test code = 98284-4) Abnormal [facility] W/PLT COUNT & AUTO [id number] 03:56:00* Test Item Value Reference Range Interpretation Comments WHITE BLOOD CELL COUNT (BEAKER) (test code = 775) 6.6 K/ L 3.5- 10.5 RED BLOOD CELL COUNT (BEAKER) (test code = 761) 2.75 M/ L 4.63-6 .08 L HEMOGLOBIN (BEAKER) (test code = 410) 8.1 GM/DL 13.7-17.5 L HEMATOCRIT (BEAKER) (test code = 411) 28.1 % 40.1-51.0 L MEAN CORPUSCULAR VOLUME (BEAKER) (test code = 753) 102.2 fL 79. 0-92.2 H MEAN CORPUSCULAR HEMOGLOBIN (BEAKER) (test code = 751) 29.5 pg 25.7-32.2 MEAN CORPUSCULAR HEMOGLOBIN CONC (BEAKER) (test code = 752) 28.8 GM/DL 32.3-36.5 L RED CELL DISTRIBUTION WIDTH (BEAKER) (test code = 412) 13.8 % 11.6-14.4 PLATELET COUNT (BEAKER) (test code = 756) 149 K/CU MM 150-450 L MEAN PLATELET VOLUME (BEAKER) (test code = 754) 12.5 fL 9.4-12 .4 H NUCLEATED RED BLOOD CELLS (BEAKER) (test code = 413) 0 /100 WBC 0 -0 NEUTROPHILS RELATIVE PERCENT (BEAKER) (test code = 429) 74 % LYMPHOCYTES RELATIVE PERCENT (BEAKER) (test code = 430) 10 % MONOCYTES RELATIVE PERCENT (BEAKER) (test code = 431) 7 % EOSINOPHILS RELATIVE PERCENT (BEAKER) (test code = 432) 7 % BASOPHILS RELATIVE PERCENT (BEAKER) (test code = 437) 1 % NEUTROPHILS ABSOLUTE COUNT (BEAKER) (test code = 670) 4.93 K/ L 1.78-5.38 LYMPHOCYTES ABSOLUTE COUNT (BEAKER) (test code = 414) 0.67 K/ L 1.32-3.57 L MONOCYTES ABSOLUTE COUNT (BEAKER) (test code = 415) 0.48 K/ L 0. 30-0.82 EOSINOPHILS ABSOLUTE COUNT (BEAKER) (test code = 416) 0.44 K/ L 0.04-0.54 BASOPHILS ABSOLUTE COUNT (BEAKER) (test code = 417) 0.03 K/ L 0. 01-0.08 IMMATURE GRANULOCYTES-RELATIVE PERCENT (BEAKER) (test code = 2801) 1 % 0-1 POCT-GLUCOSE [id number] 00:03:00* Test Item Value Reference Range Interpretation Comments POC-GLUCOSE METER (BEAKER) (test code = 1538) 221 mg/dL 70-110 H : TESTED AT [address], [address]: Marketing Strategy Manager/Clinical Laboratory Technician ID = [id number] for NICOLE MARINELLI EBV VIRAL [id number] 18:48:00* Test Item Value Reference Range Interpretation Comments EBV VIRAL LOAD - POSITIVE (BEAKER) (test code = 2291) See Scanned Report. EBV VIRAL LOAD - NEGATIVE (BEAKER) (test code = 2559) See Scanned Report. EBV VIRAL [id number] 18:48:00EBV Viral LoadComment: See Scanned Report.[facility]BV Viral LoadComment: See Scanned Report.[facility]ITALCH[facility] CenterPOCT[facility]GLUCOSE [id number] 17:56:00* Test Item Value Reference Range Interpretation Comments POC-GLUCOSE METER (BEAKER) (test code = 1538) 217 mg/dL 70-110 H : TESTED AT [facility] [address] [facility] [place], [address]: Marketing Strategy Manager/Clinical Laboratory Technician ID = [id number] for FORBESTRAM BASIC METABOLIC [id number] 17:13:00* Test Item Value Reference Range Interpretation Comments SODIUM (BEAKER) (test code = 381) 151 meq/L 136-145 H POTASSIUM (BEAKER) (test code = 379) 4.5 meq/L 3.5-5.1 Specimen slightly hemolyzed CHLORIDE (BEAKER) (test code = 382) 109 meq/L 98-107 H CO2 (BEAKER) (test code = 355) 32 meq/L 22-29 H BLOOD UREA NITROGEN (BEAKER) (test code = 354) 120 mg/dL 7-21 H CREATININE (BEAKER) (test code = 358) 1.50 mg/dL 0.57-1.25 H Specimen slightly hemolyzed GLUCOSE RANDOM (BEAKER) (test code = 652) 269 mg/dL 70-105 H CALCIUM (BEAKER) (test code = 697) 9.5 mg/dL 8.4-10.2 EGFR (BEAKER) (test code = 1092) 49 mL/min/1.73 sq m ESTIMATED GFR IS NOT ACCURATE CREATININE CLEARANCE IN PREDICTING GLOMERULAR FILTRATION RATE. ESTIMATED GFR IS NOT APPLICABLE FOR DIALYSIS PATIENTS. Marketing Strategy Manager ID - BSPOCT-GLUCOSE [id number] 12:23:00* Test Item Value Reference Range Interpretation Comments POC-GLUCOSE METER (BEAKER) (test code = 1538) 265 mg/dL 70-110 H : TESTED AT [facility] [address] [facility] [place], [address]: Marketing Strategy Manager/Clinical Laboratory Technician ID = [id number] for TAMIKO ROJAS POCT-GLUCOSE [id number] 05:53:00* Test Item Value Reference Range Interpretation Comments POC-GLUCOSE METER (BEAKER) (test code = 1538) 326 mg/dL 70-110 H : TESTED AT [facility] [address] [facility] [place], [address]: Marketing Strategy Manager/Clinical Laboratory Technician ID = [id number] for NICOLE MARINELLI CBC W/PLT COUNT & AUTO [id number] 05:29:00* Test Item Value Reference Range Interpretation Comments WHITE BLOOD CELL COUNT (BEAKER) (test code = 775) 6.6 K/ L 3.5- 10.5 RED BLOOD CELL COUNT (BEAKER) (test code = 761) 2.75 M/ L 4.63-6 .08 L HEMOGLOBIN (BEAKER) (test code = 410) 8.1 GM/DL 13.7-17.5 L HEMATOCRIT (BEAKER) (test code = 411) 28.6 % 40.1-51.0 L MEAN CORPUSCULAR VOLUME (BEAKER) (test code = 753) 104.0 fL 79. 0-92.2 H MEAN CORPUSCULAR HEMOGLOBIN (BEAKER) (test code = 751) 29.5 pg 25.7-32.2 MEAN CORPUSCULAR HEMOGLOBIN CONC (BEAKER) (test code = 752) 28.3 GM/DL 32.3-36.5 L RED CELL DISTRIBUTION WIDTH (BEAKER) (test code = 412) 14.3 % 11.6-14.4 PLATELET COUNT (BEAKER) (test code = 756) 157 K/CU MM 150-450 MEAN PLATELET VOLUME (BEAKER) (test code = 754) 13.0 fL 9.4-12 .4 H NUCLEATED RED BLOOD CELLS (BEAKER) (test code = 413) 0 /100 WBC 0 -0 NEUTROPHILS RELATIVE PERCENT (BEAKER) (test code = 429) 76 % LYMPHOCYTES RELATIVE PERCENT (BEAKER) (test code = 430) 9 % MONOCYTES RELATIVE PERCENT (BEAKER) (test code = 431) 8 % EOSINOPHILS RELATIVE PERCENT (BEAKER) (test code = 432) 6 % BASOPHILS RELATIVE PERCENT (BEAKER) (test code = 437) 1 % NEUTROPHILS ABSOLUTE COUNT (BEAKER) (test code = 670) 4.99 K/ L 1.78-5.38 LYMPHOCYTES ABSOLUTE COUNT (BEAKER) (test code = 414) 0.60 K/ L 1.32-3.57 L MONOCYTES ABSOLUTE COUNT (BEAKER) (test code = 415) 0.51 K/ L 0. 30-0.82 EOSINOPHILS ABSOLUTE COUNT (BEAKER) (test code = 416) 0.37 K/ L 0.04-0.54 BASOPHILS ABSOLUTE COUNT (BEAKER) (test code = 417) 0.04 K/ L 0. 01-0.08 IMMATURE GRANULOCYTES-RELATIVE PERCENT (BEAKER) (test code = 2801) 2 % 0-1 H Comprehensive metabolic [id number] 05:10:00* Test Item Value Reference Range Interpretation Comments Protein, Total (test code = 2885-2) 6.9 6.0- 8.3 gm/dL Albumin (test code = 24397-6) 2.9 g/dL 3.5-5 L Alkaline Phosphatase (test code = 6768-6) 594 U/L 40-150 H Total Bilirubin (test code = 1975-2) 1.2 mg/dL 0.2-1.2 Sodium (test code = 2951-2) 150 meq/L 136-145 H Potassium (test code = 2823-3) 4.6 meq/L 3.5-5.1 Chloride (test code = 2075-0) 109 meq/L 98-107 H CO2 (test code = 8-9) 30 meq/L 22-29 H BUN (test code = 3094-0) 113 mg/dL 7-21 H Creatinine (test code = 2160-0) 1.65 mg/dL 0.57-1.25 H Glucose (test code = 2345-7) 345 mg/dL 70-105 H Calcium (test code = 89218-6) 9.1 mg/dL 8.4-10.2 AST (test code = 1920-8) 114 U/L 5-34 H ALT (test code = 1742-6) 381 U/L 6-55 H EGFR (test code = 25763-3) 44 mL/min/1.73 sq m ESTIMATED GFR IS NOT ACCURATE CREATININE CLEARANCE IN PREDICTING GLOMERULAR FILTRATION RATE. ESTIMATED GFR IS NOT APPLICABLE FOR DIALYSIS PATIENTS. LOY (test code = LOY) Marketing Strategy Manager ID - EDASI Lab Interpretation (test code = 18547-4) [facility] [id number] 05:10:00* Test Item Value Reference Range Interpretation Comments Uric Acid (test code = 3084-1) 10.9 mg/dL 2.6-7.2 H LOY (test code = LOY) Marketing Strategy Manager ID - EDASI Lab Interpretation (test code = 27932-1) Abnormal [facility] Center[facility]AT[facility] FUNCTION [id number] 05:10:00* Test Item Value Reference Range Interpretation Comments TOTAL PROTEIN (BEAKER) (test code = 770) 6.9 gm/dL 6.0-8.3 ALBUMIN (BEAKER) (test code = 1145) 2.9 g/dL 3.5-5.0 L BILIRUBIN TOTAL (BEAKER) (test code = 377) 1.2 mg/dL 0.2-1.2 BILIRUBIN DIRECT (BEAKER) (test code = 706) 0.9 mg/dL 0.1-0.5 H ALKALINE PHOSPHATASE (BEAKER) (test code = 346) 594 U/L 40-150 H AST (SGOT) (BEAKER) (test code = 353) 114 U/L 5-34 H ALT (SGPT) (BEAKER) (test code = 347) 381 U/L 6-55 H Marketing Strategy Manager ID - EDASICOMPREHENSIVE METABOLIC [id number] 05:10:00* Test Item Value Reference Range Interpretation Comments TOTAL PROTEIN (BEAKER) (test code = 770) 6.9 gm/dL 6.0-8.3 ALBUMIN (BEAKER) (test code = 1145) 2.9 g/dL 3.5-5.0 L ALKALINE PHOSPHATASE (BEAKER) (test code = 346) 594 U/L 40-150 H BILIRUBIN TOTAL (BEAKER) (test code = 377) 1.2 mg/dL 0.2-1.2 SODIUM (BEAKER) (test code = 381) 150 meq/L 136-145 H POTASSIUM (BEAKER) (test code = 379) 4.6 meq/L 3.5-5.1 CHLORIDE (BEAKER) (test code = 382) 109 meq/L 98-107 H CO2 (BEAKER) (test code = 355) 30 meq/L 22-29 H BLOOD UREA NITROGEN (BEAKER) (test code = 354) 113 mg/dL 7-21 H CREATININE (BEAKER) (test code = 358) 1.65 mg/dL 0.57-1.25 H GLUCOSE RANDOM (BEAKER) (test code = 652) 345 mg/dL 70-105 H CALCIUM (BEAKER) (test code = 697) 9.1 mg/dL 8.4-10.2 AST (SGOT) (BEAKER) (test code = 353) 114 U/L 5-34 H ALT (SGPT) (BEAKER) (test code = 347) 381 U/L 6-55 H EGFR (BEAKER) (test code = 1092) 44 mL/min/1.73 sq m ESTIMATED GFR IS NOT ACCURATE CREATININE CLEARANCE IN PREDICTING GLOMERULAR FILTRATION RATE. ESTIMATED GFR IS NOT APPLICABLE FOR DIALYSIS PATIENTS. Marketing Strategy Manager ID - EDASIURIC [id number] 05:10:00* Test Item Value Reference Range Interpretation Comments URIC ACID (BEAKER) (test code = 773) 10.9 mg/dL 2.6-7.2 H Marketing Strategy Manager ID - EDASIPOCT-GLUCOSE [id number] 00:23:00* Test Item Value Reference Range Interpretation Comments POC-GLUCOSE METER (BEAKER) (test code = 1538) 233 mg/dL 70-110 H : TESTED AT [place] [id number] [facility] [place], [id number]: Marketing Strategy Manager/Clinical Laboratory Technician ID = [id number] for NICOLE MARINELLI POCT-GLUCOSE [id number] 18:00:00* Test Item Value Reference Range Interpretation Comments POC-GLUCOSE METER (BEAKER) (test code = 1538) 272 mg/dL 70-110 H : TESTED AT [place] [id number] [facility] [place], [id number]: Marketing Strategy Manager/Clinical Laboratory Technician ID = [id number] for HATTIE MUNIZ POCT-GLUCOSE [id number] 11:54:00* Test Item Value Reference Range Interpretation Comments POC-GLUCOSE METER (BEAKER) (test code = 1538) 285 mg/dL 70-110 H : TESTED AT [place] [id number] [facility] [place], [id number]: Marketing Strategy Manager/Clinical Laboratory Technician ID = [id number] for HATTIE MUNIZ BASIC METABOLIC [id number] 11:36:00* Test Item Value Reference Range Interpretation Comments SODIUM (BEAKER) (test code = 381) 145 meq/L 136-145 POTASSIUM (BEAKER) (test code = 379) 4.3 meq/L 3.5-5.1 CHLORIDE (BEAKER) (test code = 382) 106 meq/L 98-107 CO2 (BEAKER) (test code = 355) 30 meq/L 22-29 H BLOOD UREA NITROGEN (BEAKER) (test code = 354) 115 mg/dL 7-21 H CREATININE (BEAKER) (test code = 358) 1.67 mg/dL 0.57-1.25 H GLUCOSE RANDOM (BEAKER) (test code = 652) 306 mg/dL 70-105 H CALCIUM (BEAKER) (test code = 697) 8.8 mg/dL 8.4-10.2 EGFR (BEAKER) (test code = 1092) 43 mL/min/1.73 sq m ESTIMATED GFR IS NOT ACCURATE CREATININE CLEARANCE IN PREDICTING GLOMERULAR FILTRATION RATE. ESTIMATED GFR IS NOT APPLICABLE FOR DIALYSIS PATIENTS. Marketing Strategy Manager ID - RESHMA CCBC W/PLT COUNT & AUTO [id number] 07:23:00* Test Item Value Reference Range Interpretation Comments WHITE BLOOD CELL COUNT (BEAKER) (test code = 775) 7.3 K/ L 3.5- 10.5 RED BLOOD CELL COUNT (BEAKER) (test code = 761) 2.57 M/ L 4.63-6 .08 L HEMOGLOBIN (BEAKER) (test code = 410) 7.6 GM/DL 13.7-17.5 L HEMATOCRIT (BEAKER) (test code = 411) 25.9 % 40.1-51.0 L MEAN CORPUSCULAR VOLUME (BEAKER) (test code = 753) 100.8 fL 79. 0-92.2 H MEAN CORPUSCULAR HEMOGLOBIN (BEAKER) (test code = 751) 29.6 pg 25.7-32.2 MEAN CORPUSCULAR HEMOGLOBIN CONC (BEAKER) (test code = 752) 29.3 GM/DL 32.3-36.5 L RED CELL DISTRIBUTION WIDTH (BEAKER) (test code = 412) 14.3 % 11.6-14.4 PLATELET COUNT (BEAKER) (test code = 756) 144 K/CU MM 150-450 L MEAN PLATELET VOLUME (BEAKER) (test code = 754) 12.8 fL 9.4-12 .4 H NUCLEATED RED BLOOD CELLS (BEAKER) (test code = 413) 0 /100 WBC 0 -0 NEUTROPHILS RELATIVE PERCENT (BEAKER) (test code = 429) 78 % LYMPHOCYTES RELATIVE PERCENT (BEAKER) (test code = 430) 8 % MONOCYTES RELATIVE PERCENT (BEAKER) (test code = 431) 8 % EOSINOPHILS RELATIVE PERCENT (BEAKER) (test code = 432) 4 % BASOPHILS RELATIVE PERCENT (BEAKER) (test code = 437) 0 % NEUTROPHILS ABSOLUTE COUNT (BEAKER) (test code = 670) 5.64 K/ L 1.78-5.38 H LYMPHOCYTES ABSOLUTE COUNT (BEAKER) (test code = 414) 0.60 K/ L 1.32-3.57 L MONOCYTES ABSOLUTE COUNT (BEAKER) (test code = 415) 0.55 K/ L 0. 30-0.82 EOSINOPHILS ABSOLUTE COUNT (BEAKER) (test code = 416) 0.32 K/ L 0.04-0.54 BASOPHILS ABSOLUTE COUNT (BEAKER) (test code = 417) 0.03 K/ L 0. 01-0.08 IMMATURE GRANULOCYTES-RELATIVE PERCENT (BEAKER) (test code = 2801) 2 % 0-1 H HEPATIC FUNCTION [id number] 07:02:00* Test Item Value Reference Range Interpretation Comments TOTAL PROTEIN (BEAKER) (test code = 770) 6.7 gm/dL 6.0-8.3 ALBUMIN (BEAKER) (test code = 1145) 2.9 g/dL 3.5-5.0 L BILIRUBIN TOTAL (BEAKER) (test code = 377) 1.0 mg/dL 0.2-1.2 BILIRUBIN DIRECT (BEAKER) (test code = 706) 0.9 mg/dL 0.1-0.5 H ALKALINE PHOSPHATASE (BEAKER) (test code = 346) 569 U/L 40-150 H AST (SGOT) (BEAKER) (test code = 353) 106 U/L 5-34 H ALT (SGPT) (BEAKER) (test code = 347) 350 U/L 6-55 H Marketing Strategy Manager ANGELINA MORAN LPOCT-GLUCOSE [id number] 06:46:00* Test Item Value Reference Range Interpretation Comments POC-GLUCOSE METER (BEAKER) (test code = 1538) 278 mg/dL 70-110 H : TESTED AT [address], [address]: Marketing Strategy Manager/Clinical Laboratory Technician ID = [id number] for MSIBI, MNCEDISI POCT-GLUCOSE [id number] 00:13:00* Test Item Value Reference Range Interpretation Comments POC-GLUCOSE METER (BEAKER) (test code = 1538) 305 mg/dL 70-110 H : Notified RN/MD: TESTED AT [address], [address]: Marketing Strategy Manager/Clinical Laboratory Technician ID = [id number] for MSIBI, MNCEDISI POCT-GLUCOSE [id number] 18:12:00* Test Item Value Reference Range Interpretation Comments POC-GLUCOSE METER (BEAKER) (test code = 1538) 233 mg/dL 70-110 H : TESTED AT [address], [address]: Marketing Strategy Manager/Clinical Laboratory Technician ID = [id number] for TAMIKO ROJAS POCT-GLUCOSE [id number] 12:25:00* Test Item Value Reference Range Interpretation Comments POC-GLUCOSE METER (BEAKER) (test code = 1538) 270 mg/dL 70-110 H : TESTED AT [address], [address]: Marketing Strategy Manager/Clinical Laboratory Technician ID = [id number] for SEBASTIAN ROJASE BASIC METABOLIC [id number] 11:14:00* Test Item Value Reference Range Interpretation Comments SODIUM (BEAKER) (test code = 381) 143 meq/L 136-145 POTASSIUM (BEAKER) (test code = 379) 4.3 meq/L 3.5-5.1 Specimen slightly hemolyzed CHLORIDE (BEAKER) (test code = 382) 105 meq/L 98-107 CO2 (BEAKER) (test code = 355) 26 meq/L 22-29 BLOOD UREA NITROGEN (BEAKER) (test code = 354) 121 mg/dL 7-21 H CREATININE (BEAKER) (test code = 358) 1.60 mg/dL 0.57-1.25 H Specimen slightly hemolyzed GLUCOSE RANDOM (BEAKER) (test code = 652) 278 mg/dL 70-105 H CALCIUM (BEAKER) (test code = 697) 8.7 mg/dL 8.4-10.2 EGFR (BEAKER) (test code = 1092) 45 mL/min/1.73 sq m ESTIMATED GFR IS NOT ACCURATE CREATININE CLEARANCE IN PREDICTING GLOMERULAR FILTRATION RATE. ESTIMATED GFR IS NOT APPLICABLE FOR DIALYSIS PATIENTS. Marketing Strategy Manager ID - RESHMA CHEPATIC FUNCTION [id number] 06:39:00* Test Item Value Reference Range Interpretation Comments TOTAL PROTEIN (BEAKER) (test code = 770) 6.6 gm/dL 6.0-8.3 ALBUMIN (BEAKER) (test code = 1145) 2.8 g/dL 3.5-5.0 L BILIRUBIN TOTAL (BEAKER) (test code = 377) 1.1 mg/dL 0.2-1.2 BILIRUBIN DIRECT (BEAKER) (test code = 706) 0.9 mg/dL 0.1-0.5 H ALKALINE PHOSPHATASE (BEAKER) (test code = 346) 566 U/L 40-150 H AST (SGOT) (BEAKER) (test code = 353) 104 U/L 5-34 H ALT (SGPT) (BEAKER) (test code = 347) 359 U/L 6-55 H Marketing Strategy Manager ID - LUISA LPOCT-GLUCOSE [id number] 06:36:00* Test Item Value Reference Range Interpretation Comments POC-GLUCOSE METER (BEAKER) (test code = 1538) 246 mg/dL 70-110 H : TESTED AT [facility] [address] [facility], [address]: Marketing Strategy Manager/Clinical Laboratory Technician ID = [id number] for LETA HENDRICKSON CBC W/PLT COUNT & AUTO [id number] 06:15:00* Test Item Value Reference Range Interpretation Comments WHITE BLOOD CELL COUNT (BEAKER) (test code = 775) 8.7 K/ L 3.5- 10.5 RED BLOOD CELL COUNT (BEAKER) (test code = 761) 2.64 M/ L 4.63-6 .08 L HEMOGLOBIN (BEAKER) (test code = 410) 7.8 GM/DL 13.7-17.5 L HEMATOCRIT (BEAKER) (test code = 411) 26.5 % 40.1-51.0 L MEAN CORPUSCULAR VOLUME (BEAKER) (test code = 753) 100.4 fL 79. 0-92.2 H MEAN CORPUSCULAR HEMOGLOBIN (BEAKER) (test code = 751) 29.5 pg 25.7-32.2 MEAN CORPUSCULAR HEMOGLOBIN CONC (BEAKER) (test code = 752) 29.4 GM/DL 32.3-36.5 L RED CELL DISTRIBUTION WIDTH (BEAKER) (test code = 412) 14.6 % 11.6-14.4 H PLATELET COUNT (BEAKER) (test code = 756) 130 K/CU MM 150-450 L MEAN PLATELET VOLUME (BEAKER) (test code = 754) 12.9 fL 9.4-12 .4 H NUCLEATED RED BLOOD CELLS (BEAKER) (test code = 413) 0 /100 WBC 0 -0 NEUTROPHILS RELATIVE PERCENT (BEAKER) (test code = 429) 80 % LYMPHOCYTES RELATIVE PERCENT (BEAKER) (test code = 430) 7 % MONOCYTES RELATIVE PERCENT (BEAKER) (test code = 431) 8 % EOSINOPHILS RELATIVE PERCENT (BEAKER) (test code = 432) 3 % BASOPHILS RELATIVE PERCENT (BEAKER) (test code = 437) 0 % NEUTROPHILS ABSOLUTE COUNT (BEAKER) (test code = 670) 6.95 K/ L 1.78-5.38 H LYMPHOCYTES ABSOLUTE COUNT (BEAKER) (test code = 414) 0.61 K/ L 1.32-3.57 L MONOCYTES ABSOLUTE COUNT (BEAKER) (test code = 415) 0.68 K/ L 0. 30-0.82 EOSINOPHILS ABSOLUTE COUNT (BEAKER) (test code = 416) 0.25 K/ L 0.04-0.54 BASOPHILS ABSOLUTE COUNT (BEAKER) (test code = 417) 0.03 K/ L 0. 01-0.08 IMMATURE GRANULOCYTES-RELATIVE PERCENT (BEAKER) (test code = 2801) 2 % 0-1 H POCT-GLUCOSE [id number] 00:11:00* Test Item Value Reference Range Interpretation Comments POC-GLUCOSE METER (BEAKER) (test code = 1538) 283 mg/dL 70-110 H : TESTED AT [facility] [address] [facility] [place], [address]: Marketing Strategy Manager/Clinical Laboratory Technician ID = [id number] for LETA HENDRICKSON POCT-GLUCOSE [id number] 18:01:00* Test Item Value Reference Range Interpretation Comments POC-GLUCOSE METER (BEAKER) (test code = 1538) 257 mg/dL 70-110 H : TESTED AT [facility] [address] [facility] [place], [address]: Marketing Strategy Manager/Clinical Laboratory Technician ID = [id number] for GANT-CM, TAMIKO RAD, CHEST, 1 VIEW, NON [id number] 12:56:00Reason for exam:->Resp distressShould this be performed at the bedside?->YesFINAL REPORT Chest, one view. HISTORY: Resp distress COMPARISON: Radiograph from 01/27/2020 IMPRESSION: The tracheostomy tube and left IJ central venous catheter are unchanged in position. The NG tube courses below the diaphragm. The bilateral lung opacities have decreased compared the prior examination but are still present, most prominent in the bases. No pleural effusion or pneumothorax. The cardiac silhouette is normal in size. No acute bony abnormality. Signed: Harpreet Thompson MDRepbubba Verified Date/Time: 02/05/2020 12:56:25 Reading Location: [address] Body Reading Room -GLUCOSE [id number] 12:15:00* Test Item Value Reference Range Interpretation Comments POC-GLUCOSE METER (BEAKER) (test code = 1538) 261 mg/dL 70-110 H : TESTED AT [facility] [address] [facility] [place], [address]: Marketing Strategy Manager/Clinical Laboratory Technician ID = [id number] for TAMIKO ROJAS POCT-GLUCOSE [id number] 05:26:00* Test Item Value Reference Range Interpretation Comments POC-GLUCOSE METER (BEAKER) (test code = 1538) 199 mg/dL 70-110 H : TESTED AT [facility] [address] [facility] [place], [address]: Marketing Strategy Manager/Clinical Laboratory Technician ID = [id number] for TIARA PATTON CBC W/PLT COUNT & AUTO [id number] 04:57:00* Test Item Value Reference Range Interpretation Comments WHITE BLOOD CELL COUNT (BEAKER) (test code = 775) 7.5 K/ L 3.5- 10.5 RED BLOOD CELL COUNT (BEAKER) (test code = 761) 2.55 M/ L 4.63-6 .08 L HEMOGLOBIN (BEAKER) (test code = 410) 7.5 GM/DL 13.7-17.5 L HEMATOCRIT (BEAKER) (test code = 411) 25.0 % 40.1-51.0 L MEAN CORPUSCULAR VOLUME (BEAKER) (test code = 753) 98.0 fL 79. 0-92.2 H MEAN CORPUSCULAR HEMOGLOBIN (BEAKER) (test code = 751) 29.4 pg 25.7-32.2 MEAN CORPUSCULAR HEMOGLOBIN CONC (BEAKER) (test code = 752) 30.0 GM/DL 32.3-36.5 L RED CELL DISTRIBUTION WIDTH (BEAKER) (test code = 412) 14.3 % 11.6-14.4 PLATELET COUNT (BEAKER) (test code = 756) 136 K/CU MM 150-450 L MEAN PLATELET VOLUME (BEAKER) (test code = 754) 12.8 fL 9.4-12 .4 H NUCLEATED RED BLOOD CELLS (BEAKER) (test code = 413) 0 /100 WBC 0 -0 NEUTROPHILS RELATIVE PERCENT (BEAKER) (test code = 429) 74 % LYMPHOCYTES RELATIVE PERCENT (BEAKER) (test code = 430) 9 % MONOCYTES RELATIVE PERCENT (BEAKER) (test code = 431) 7 % EOSINOPHILS RELATIVE PERCENT (BEAKER) (test code = 432) 7 % BASOPHILS RELATIVE PERCENT (BEAKER) (test code = 437) 0 % NEUTROPHILS ABSOLUTE COUNT (BEAKER) (test code = 670) 5.55 K/ L 1.78-5.38 H LYMPHOCYTES ABSOLUTE COUNT (BEAKER) (test code = 414) 0.69 K/ L 1.32-3.57 L MONOCYTES ABSOLUTE COUNT (BEAKER) (test code = 415) 0.52 K/ L 0. 30-0.82 EOSINOPHILS ABSOLUTE COUNT (BEAKER) (test code = 416) 0.49 K/ L 0.04-0.54 BASOPHILS ABSOLUTE COUNT (BEAKER) (test code = 417) 0.03 K/ L 0. 01-0.08 IMMATURE GRANULOCYTES-RELATIVE PERCENT (BEAKER) (test code = 2801) 3 % 0-1 H HEPATIC FUNCTION [id number] 04:53:00* Test Item Value Reference Range Interpretation Comments TOTAL PROTEIN (BEAKER) (test code = 770) 6.5 gm/dL 6.0-8.3 ALBUMIN (BEAKER) (test code = 1145) 2.8 g/dL 3.5-5.0 L BILIRUBIN TOTAL (BEAKER) (test code = 377) 1.1 mg/dL 0.2-1.2 BILIRUBIN DIRECT (BEAKER) (test code = 706) 0.9 mg/dL 0.1-0.5 H ALKALINE PHOSPHATASE (BEAKER) (test code = 346) 580 U/L 40-150 H AST (SGOT) (BEAKER) (test code = 353) 120 U/L 5-34 H ALT (SGPT) (BEAKER) (test code = 347) 391 U/L 6-55 H Marketing Strategy Manager ID - ALLISON MPOCT-GLUCOSE [id number] 23:20:00* Test Item Value Reference Range Interpretation Comments POC-GLUCOSE METER (BEAKER) (test code = 1538) 198 mg/dL 70-110 H : TESTED AT [address], [address]: Marketing Strategy Manager/Clinical Laboratory Technician ID = [id number] for TIARA PATTON POCT-GLUCOSE [id number] 18:10:00* Test Item Value Reference Range Interpretation Comments POC-GLUCOSE METER (BEAKER) (test code = 1538) 250 mg/dL 70-110 H : TESTED AT [address], [address]: Marketing Strategy Manager/Clinical Laboratory Technician ID = [id number] for ESTUARDO GALDAMEZ POCT-GLUCOSE [id number] 12:23:00* Test Item Value Reference Range Interpretation Comments POC-GLUCOSE METER (BEAKER) (test code = 1538) 209 mg/dL 70-110 H : TESTED AT [address], [address]: Marketing Strategy Manager/Clinical Laboratory Technician ID = [id number] for HATTIE MUNIZ POCT-GLUCOSE [id number] 06:30:00* Test Item Value Reference Range Interpretation Comments POC-GLUCOSE METER (BEAKER) (test code = 1538) 207 mg/dL 70-110 H : TESTED AT [address], [address]: Marketing Strategy Manager/Clinical Laboratory Technician ID = [id number] for MSIBI, MNCEDISI HEPATIC FUNCTION [id number] 05:25:00* Test Item Value Reference Range Interpretation Comments TOTAL PROTEIN (BEAKER) (test code = 770) 6.3 gm/dL 6.0-8.3 ALBUMIN (BEAKER) (test code = 1145) 2.8 g/dL 3.5-5.0 L BILIRUBIN TOTAL (BEAKER) (test code = 377) 1.1 mg/dL 0.2-1.2 BILIRUBIN DIRECT (BEAKER) (test code = 706) 1.0 mg/dL 0.1-0.5 H ALKALINE PHOSPHATASE (BEAKER) (test code = 346) 494 U/L 40-150 H AST (SGOT) (BEAKER) (test code = 353) 115 U/L 5-34 H ALT (SGPT) (BEAKER) (test code = 347) 376 U/L 6-55 H Marketing Strategy Manager ID - ALLISON MBASIC METABOLIC [id number] 05:25:00* Test Item Value Reference Range Interpretation Comments SODIUM (BEAKER) (test code = 381) 140 meq/L 136-145 POTASSIUM (BEAKER) (test code = 379) 4.1 meq/L 3.5-5.1 CHLORIDE (BEAKER) (test code = 382) 101 meq/L 98-107 CO2 (BEAKER) (test code = 355) 28 meq/L 22-29 BLOOD UREA NITROGEN (BEAKER) (test code = 354) 109 mg/dL 7-21 H CREATININE (BEAKER) (test code = 358) 1.68 mg/dL 0.57-1.25 H GLUCOSE RANDOM (BEAKER) (test code = 652) 259 mg/dL 70-105 H CALCIUM (BEAKER) (test code = 697) 8.6 mg/dL 8.4-10.2 EGFR (BEAKER) (test code = 1092) 43 mL/min/1.73 sq m ESTIMATED GFR IS NOT ACCURATE CREATININE CLEARANCE IN PREDICTING GLOMERULAR FILTRATION RATE. ESTIMATED GFR IS NOT APPLICABLE FOR DIALYSIS PATIENTS. Marketing Strategy Manager ID - ALLISON MCBC W/PLT COUNT & AUTO [id number] 05:02:00* Test Item Value Reference Range Interpretation Comments WHITE BLOOD CELL COUNT (BEAKER) (test code = 775) 7.8 K/ L 3.5- 10.5 RED BLOOD CELL COUNT (BEAKER) (test code = 761) 2.61 M/ L 4.63-6 .08 L HEMOGLOBIN (BEAKER) (test code = 410) 7.7 GM/DL 13.7-17.5 L HEMATOCRIT (BEAKER) (test code = 411) 26.0 % 40.1-51.0 L MEAN CORPUSCULAR VOLUME (BEAKER) (test code = 753) 99.6 fL 79. 0-92.2 H MEAN CORPUSCULAR HEMOGLOBIN (BEAKER) (test code = 751) 29.5 pg 25.7-32.2 MEAN CORPUSCULAR HEMOGLOBIN CONC (BEAKER) (test code = 752) 29.6 GM/DL 32.3-36.5 L RED CELL DISTRIBUTION WIDTH (BEAKER) (test code = 412) 14.6 % 11.6-14.4 H PLATELET COUNT (BEAKER) (test code = 756) 138 K/CU MM 150-450 L MEAN PLATELET VOLUME (BEAKER) (test code = 754) 12.7 fL 9.4-12 .4 H NUCLEATED RED BLOOD CELLS (BEAKER) (test code = 413) 0 /100 WBC 0 -0 NEUTROPHILS RELATIVE PERCENT (BEAKER) (test code = 429) 73 % LYMPHOCYTES RELATIVE PERCENT (BEAKER) (test code = 430) 10 % MONOCYTES RELATIVE PERCENT (BEAKER) (test code = 431) 7 % EOSINOPHILS RELATIVE PERCENT (BEAKER) (test code = 432) 7 % BASOPHILS RELATIVE PERCENT (BEAKER) (test code = 437) 0 % NEUTROPHILS ABSOLUTE COUNT (BEAKER) (test code = 670) 5.69 K/ L 1.78-5.38 H LYMPHOCYTES ABSOLUTE COUNT (BEAKER) (test code = 414) 0.75 K/ L 1.32-3.57 L MONOCYTES ABSOLUTE COUNT (BEAKER) (test code = 415) 0.55 K/ L 0. 30-0.82 EOSINOPHILS ABSOLUTE COUNT (BEAKER) (test code = 416) 0.52 K/ L 0.04-0.54 BASOPHILS ABSOLUTE COUNT (BEAKER) (test code = 417) 0.03 K/ L 0. 01-0.08 IMMATURE GRANULOCYTES-RELATIVE PERCENT (BEAKER) (test code = 2801) 3 % 0-1 H POCT-GLUCOSE [id number] 23:42:00* Test Item Value Reference Range Interpretation Comments POC-GLUCOSE METER (BEAKER) (test code = 1538) 203 mg/dL 70-110 H : TESTED AT [facility] [address] [facility], [address]: Marketing Strategy Manager/Clinical Laboratory Technician ID = [id number] for VAISHALI, JEMTaqueria POCT-GLUCOSE [id number] 18:31:00* Test Item Value Reference Range Interpretation Comments POC-GLUCOSE METER (BEAKER) (test code = 1538) 177 mg/dL 70-110 H : TESTED AT [place] [id number] [facility], [address]: Marketing Strategy Manager/Clinical Laboratory Technician ID = [id number] for HATTIE MUNIZ Blood [id number] 13:00:00* Test Item Value Reference Range Interpretation Comments Result (test code = 6463-4) No growth in 5 [id number] 13:00:00* Test Item Value Reference Range Interpretation Comments CULTURE (BEAKER) (test code = 1095) No growth in 5 days BLOOD [id number] 13:00:00* Test Item Value Reference Range Interpretation Comments CULTURE (BEAKER) (test code = 1095) No growth in 5 days POCT-GLUCOSE [id number] 11:48:00* Test Item Value Reference Range Interpretation Comments POC-GLUCOSE METER (BEAKER) (test code = 1538) 233 mg/dL 70-110 H : TESTED AT [place] [id number] [facility], [address]: Marketing Strategy Manager/Clinical Laboratory Technician ID = [id number] for HATTIE MUNIZ POCT-GLUCOSE [id number] 06:06:00* Test Item Value Reference Range Interpretation Comments POC-GLUCOSE METER (BEAKER) (test code = 1538) 219 mg/dL 70-110 H : TESTED AT [address], [address]: Marketing Strategy Manager/Clinical Laboratory Technician ID = [id number] for NICOLE MARINELLI BASIC METABOLIC [id number] 05:07:00* Test Item Value Reference Range Interpretation Comments SODIUM (BEAKER) (test code = 381) 140 meq/L 136-145 POTASSIUM (BEAKER) (test code = 379) 4.3 meq/L 3.5-5.1 Specimen slightly hemolyzed CHLORIDE (BEAKER) (test code = 382) 101 meq/L 98-107 CO2 (BEAKER) (test code = 355) 29 meq/L 22-29 BLOOD UREA NITROGEN (BEAKER) (test code = 354) 90 mg/dL 7-21 H CREATININE (BEAKER) (test code = 358) 1.75 mg/dL 0.57-1.25 H Specimen slightly hemolyzed GLUCOSE RANDOM (BEAKER) (test code = 652) 224 mg/dL 70-105 H CALCIUM (BEAKER) (test code = 697) 8.6 mg/dL 8.4-10.2 EGFR (BEAKER) (test code = 1092) 41 mL/min/1.73 sq m ESTIMATED GFR IS NOT ACCURATE CREATININE CLEARANCE IN PREDICTING GLOMERULAR FILTRATION RATE. ESTIMATED GFR IS NOT APPLICABLE FOR DIALYSIS PATIENTS. Marketing Strategy Manager ID - NTPHEPATIC FUNCTION [id number] 05:07:00* Test Item Value Reference Range Interpretation Comments TOTAL PROTEIN (BEAKER) (test code = 770) 6.5 gm/dL 6.0-8.3 Specimen slightly hemolyzed ALBUMIN (BEAKER) (test code = 1145) 2.8 g/dL 3.5-5.0 L Specimen slightly hemolyzed BILIRUBIN TOTAL (BEAKER) (test code = 377) 1.4 mg/dL 0.2-1.2 H Specimen slightly hemolyzed BILIRUBIN DIRECT (BEAKER) (test code = 706) 1.0 mg/dL 0.1-0.5 H Specimen slightly hemolyzed ALKALINE PHOSPHATASE (BEAKER) (test code = 346) 519 U/L 40-150 H AST (SGOT) (BEAKER) (test code = 353) 141 U/L 5-34 H Specimen slightly hemolyzed ALT (SGPT) (BEAKER) (test code = 347) 439 U/L 6-55 H Specimen slightly hemolyzed Marketing Strategy Manager ID - NTPCBC W/PLT COUNT & AUTO [id number] 04:44:00* Test Item Value Reference Range Interpretation Comments WHITE BLOOD CELL COUNT (BEAKER) (test code = 775) 9.6 K/ L 3.5- 10.5 RED BLOOD CELL COUNT (BEAKER) (test code = 761) 2.67 M/ L 4.63-6 .08 L HEMOGLOBIN (BEAKER) (test code = 410) 8.1 GM/DL 13.7-17.5 L HEMATOCRIT (BEAKER) (test code = 411) 25.9 % 40.1-51.0 L MEAN CORPUSCULAR VOLUME (BEAKER) (test code = 753) 97.0 fL 79. 0-92.2 H MEAN CORPUSCULAR HEMOGLOBIN (BEAKER) (test code = 751) 30.3 pg 25.7-32.2 MEAN CORPUSCULAR HEMOGLOBIN CONC (BEAKER) (test code = 752) 31.3 GM/DL 32.3-36.5 L RED CELL DISTRIBUTION WIDTH (BEAKER) (test code = 412) 14.6 % 11.6-14.4 H PLATELET COUNT (BEAKER) (test code = 756) 128 K/CU MM 150-450 L MEAN PLATELET VOLUME (BEAKER) (test code = 754) 12.6 fL 9.4-12 .4 H NUCLEATED RED BLOOD CELLS (BEAKER) (test code = 413) 0 /100 WBC 0 -0 NEUTROPHILS RELATIVE PERCENT (BEAKER) (test code = 429) 76 % LYMPHOCYTES RELATIVE PERCENT (BEAKER) (test code = 430) 8 % MONOCYTES RELATIVE PERCENT (BEAKER) (test code = 431) 8 % EOSINOPHILS RELATIVE PERCENT (BEAKER) (test code = 432) 6 % BASOPHILS RELATIVE PERCENT (BEAKER) (test code = 437) 0 % NEUTROPHILS ABSOLUTE COUNT (BEAKER) (test code = 670) 7.31 K/ L 1.78-5.38 H LYMPHOCYTES ABSOLUTE COUNT (BEAKER) (test code = 414) 0.74 K/ L 1.32-3.57 L MONOCYTES ABSOLUTE COUNT (BEAKER) (test code = 415) 0.76 K/ L 0. 30-0.82 EOSINOPHILS ABSOLUTE COUNT (BEAKER) (test code = 416) 0.55 K/ L 0.04-0.54 H BASOPHILS ABSOLUTE COUNT (BEAKER) (test code = 417) 0.03 K/ L 0. 01-0.08 IMMATURE GRANULOCYTES-RELATIVE PERCENT (BEAKER) (test code = 2801) 2 % 0-1 H POCT-GLUCOSE [id number] 23:56:00* Test Item Value Reference Range Interpretation Comments POC-GLUCOSE METER (BEAKER) (test code = 1538) 242 mg/dL 70-110 H : TESTED AT [address], [address]: Marketing Strategy Manager/Clinical Laboratory Technician ID = [id number] for NICOLE MARINELLI POCT-GLUCOSE [id number] 18:30:00* Test Item Value Reference Range Interpretation Comments POC-GLUCOSE METER (BEAKER) (test code = 1538) 309 mg/dL 70-110 H : TESTED AT [address], [address]: Marketing Strategy Manager/Clinical Laboratory Technician ID = [id number] for TAMIKO ROJAS POCT-GLUCOSE [id number] 11:56:00* Test Item Value Reference Range Interpretation Comments POC-GLUCOSE METER (BEAKER) (test code = 1538) 289 mg/dL 70-110 H : TESTED AT [facility] [address] [facility] [place], [address]: Marketing Strategy Manager/Clinical Laboratory Technician ID = [id number] for Rain Dubon POCT-GLUCOSE [id number] 06:02:00* Test Item Value Reference Range Interpretation Comments POC-GLUCOSE METER (BEAKER) (test code = 1538) 227 mg/dL 70-110 H : TESTED AT [facility] [address] [facility] [place], [address]: Marketing Strategy Manager/Clinical Laboratory Technician ID = [id number] for NICOLE MARINELLI Blood gas, [id number] 05:04:00* Test Item Value Reference Range Interpretation Comments pH, Arterial (test code = 2744-1) 7.41 7.35-7.45 pCO2, Arterial (test code = 2019-8) 51 35- 45 mmHg H pO2, Arterial (test code = 2703-7) 68 80- 90 mmHg L O2 Sat, Arterial (test code = 2708-6) 92.9 % 96-97 L HCO3, Arterial (test code = 1960-4) 31 mmol/L 21-29 H Base Excess, Arterial (test code = 1925-7) 6.1 mmol/L -2-3 H Patient Temperature (test code = 8310-5) 37.5 C FIO2 (test code = 1819) 35 % Lab Interpretation (test code = 12197-5) [facility] [id number] 05:04:00* Test Item Value Reference Range Interpretation Comments PH ARTERIAL (BEAKER) (test code = 383) 7.41 7.35-7.45 PCO2 ARTERIAL (BEAKER) (test code = 384) 51 mmHg 35-45 H PO2 ARTERIAL (BEAKER) (test code = 385) 68 mmHg 80-90 L O2 SATURATION ARTERIAL (BEAKER) (test code = 386) 92.9 % 96.0 -97.0 L HCO3 ARTERIAL (BEAKER) (test code = 388) 31 mmol/L 21-29 H BASE EXCESS ARTERIAL (BEAKER) (test code = 387) 6.1 mmol/L -2.0-3 .0 H PATIENT TEMPERATURE (BEAKER) (test code = 1818) 37.5 C FIO2 (BEAKER) (test code = 1819) 35.0 % [id number] 05:01:00* Test Item Value Reference Range Interpretation Comments MAGNESIUM (BEAKER) (test code = 627) 1.8 mg/dL 1.6-2.6 Marketing Strategy Manager ID - EDASIBASIC METABOLIC [id number] 05:01:00* Test Item Value Reference Range Interpretation Comments SODIUM (BEAKER) (test code = 381) 140 meq/L 136-145 POTASSIUM (BEAKER) (test code = 379) 4.0 meq/L 3.5-5.1 CHLORIDE (BEAKER) (test code = 382) 102 meq/L 98-107 CO2 (BEAKER) (test code = 355) 31 meq/L 22-29 H BLOOD UREA NITROGEN (BEAKER) (test code = 354) 56 mg/dL 7-21 H CREATININE (BEAKER) (test code = 358) 1.29 mg/dL 0.57-1.25 H GLUCOSE RANDOM (BEAKER) (test code = 652) 245 mg/dL 70-105 H CALCIUM (BEAKER) (test code = 697) 8.2 mg/dL 8.4-10.2 L EGFR (BEAKER) (test code = 1092) 58 mL/min/1.73 sq m ESTIMATED GFR IS NOT ACCURATE CREATININE CLEARANCE IN PREDICTING GLOMERULAR FILTRATION RATE. ESTIMATED GFR IS NOT APPLICABLE FOR DIALYSIS PATIENTS. Marketing Strategy Manager ID - EDASIHEPATIC FUNCTION [id number] 05:01:00* Test Item Value Reference Range Interpretation Comments TOTAL PROTEIN (BEAKER) (test code = 770) 6.3 gm/dL 6.0-8.3 ALBUMIN (BEAKER) (test code = 1145) 2.8 g/dL 3.5-5.0 L BILIRUBIN TOTAL (BEAKER) (test code = 377) 1.3 mg/dL 0.2-1.2 H BILIRUBIN DIRECT (BEAKER) (test code = 706) 1.0 mg/dL 0.1-0.5 H ALKALINE PHOSPHATASE (BEAKER) (test code = 346) 514 U/L 40-150 H AST (SGOT) (BEAKER) (test code = 353) 134 U/L 5-34 H ALT (SGPT) (BEAKER) (test code = 347) 468 U/L 6-55 H Marketing Strategy Manager ID - [id number]/PLT COUNT & AUTO [id number] 04:23:00* Test Item Value Reference Range Interpretation Comments WHITE BLOOD CELL COUNT (BEAKER) (test code = 775) 8.0 K/ L 3.5- 10.5 RED BLOOD CELL COUNT (BEAKER) (test code = 761) 2.71 M/ L 4.63-6 .08 L HEMOGLOBIN (BEAKER) (test code = 410) 7.9 GM/DL 13.7-17.5 L HEMATOCRIT (BEAKER) (test code = 411) 26.9 % 40.1-51.0 L MEAN CORPUSCULAR VOLUME (BEAKER) (test code = 753) 99.3 fL 79. 0-92.2 H MEAN CORPUSCULAR HEMOGLOBIN (BEAKER) (test code = 751) 29.2 pg 25.7-32.2 MEAN CORPUSCULAR HEMOGLOBIN CONC (BEAKER) (test code = 752) 29.4 GM/DL 32.3-36.5 L RED CELL DISTRIBUTION WIDTH (BEAKER) (test code = 412) 14.8 % 11.6-14.4 H PLATELET COUNT (BEAKER) (test code = 756) 129 K/CU MM 150-450 L MEAN PLATELET VOLUME (BEAKER) (test code = 754) 11.9 fL 9.4-12 .4 NUCLEATED RED BLOOD CELLS (BEAKER) (test code = 413) 0 /100 WBC 0 -0 NEUTROPHILS RELATIVE PERCENT (BEAKER) (test code = 429) 69 % LYMPHOCYTES RELATIVE PERCENT (BEAKER) (test code = 430) 10 % MONOCYTES RELATIVE PERCENT (BEAKER) (test code = 431) 9 % EOSINOPHILS RELATIVE PERCENT (BEAKER) (test code = 432) 7 % BASOPHILS RELATIVE PERCENT (BEAKER) (test code = 437) 1 % NEUTROPHILS ABSOLUTE COUNT (BEAKER) (test code = 670) 5.50 K/ L 1.78-5.38 H LYMPHOCYTES ABSOLUTE COUNT (BEAKER) (test code = 414) 0.82 K/ L 1.32-3.57 L MONOCYTES ABSOLUTE COUNT (BEAKER) (test code = 415) 0.74 K/ L 0. 30-0.82 EOSINOPHILS ABSOLUTE COUNT (BEAKER) (test code = 416) 0.55 K/ L 0.04-0.54 H BASOPHILS ABSOLUTE COUNT (BEAKER) (test code = 417) 0.04 K/ L 0. 01-0.08 IMMATURE GRANULOCYTES-RELATIVE PERCENT (BEAKER) (test code = 2801) 4 % 0-1 H POCT-GLUCOSE [id number] 00:48:00* Test Item Value Reference Range Interpretation Comments POC-GLUCOSE METER (BEAKER) (test code = 1538) 200 mg/dL 70-110 H : Verify w/ Lab Draw: TESTED AT [address], [address]: Marketing Strategy Manager/Clinical Laboratory Technician ID = [id number] for NICOLE MARINELLI HEMODIALYSIS [id number] 23:30:00Kong Eduardo RN 02/01/2020 11:57 PMTolerated and completed 3 hours and 30 minutes. No distress noted, asymptomatic. Denies any discomfort and pain.UF fluid removed 1 liters.Packed cvc port with heparin 000 units/ml and secured line with blue caps, gauze and tape. Report given to nurse Niki BARNETT. Latest lab result:Lab Results Component Value Date WBC 7.1 02/01/2020 HGB 7.9 (L) 02/01/2020 HCT 26.2 (L) 02/01/2020 MCV 98.1 (H) 02/01/2020 PLT 143 (L) 02/01/2020 Lab Results Component Value Date GLUCOSE 271 (H) 02/01/2020 CALCIUM 8.7 02/01/2020 NA 144 02/01/2020 K 4.7 02/01/2020 CO2 26 02/01/2020 CL 106 02/01/2020 BUN 118 (H) 02/01/2020 CREATININE 2.18 (H) 02/01/2020 Kong YUSUF, RN [id number]- Adult Ashyjduc384 [facility] [address] [facility] [id number] 18:47:00* Test Item Value Reference Range Interpretation Comments POC-GLUCOSE METER (BEAKER) (test code = 1538) 292 mg/dL 70-110 H : TESTED AT [address], [address]: Marketing Strategy Manager/Clinical Laboratory Technician ID = [id number] for HATTIE MUNIZ POCT-GLUCOSE [id number] 12:27:00* Test Item Value Reference Range Interpretation Comments POC-GLUCOSE METER (BEAKER) (test code = 1538) 242 mg/dL 70-110 H : TESTED AT [facility] [address] [facility], [address]: Marketing Strategy Manager/Clinical Laboratory Technician ID = [id number] for HATTIE MUNIZ POCT-GLUCOSE [id number] 06:27:00* Test Item Value Reference Range Interpretation Comments POC-GLUCOSE METER (BEAKER) (test code = 1538) 251 mg/dL 70-110 H : TESTED AT [facility] [address] [facility], [address]: Marketing Strategy Manager/Clinical Laboratory Technician ID = [id number] for LETA HENDRICKSON CBC W/PLT COUNT & AUTO [id number] 06:18:00* Test Item Value Reference Range Interpretation Comments WHITE BLOOD CELL COUNT (BEAKER) (test code = 775) 7.1 K/ L 3.5- 10.5 RED BLOOD CELL COUNT (BEAKER) (test code = 761) 2.67 M/ L 4.63-6 .08 L HEMOGLOBIN (BEAKER) (test code = 410) 7.9 GM/DL 13.7-17.5 L HEMATOCRIT (BEAKER) (test code = 411) 26.2 % 40.1-51.0 L MEAN CORPUSCULAR VOLUME (BEAKER) (test code = 753) 98.1 fL 79. 0-92.2 H MEAN CORPUSCULAR HEMOGLOBIN (BEAKER) (test code = 751) 29.6 pg 25.7-32.2 MEAN CORPUSCULAR HEMOGLOBIN CONC (BEAKER) (test code = 752) 30.2 GM/DL 32.3-36.5 L RED CELL DISTRIBUTION WIDTH (BEAKER) (test code = 412) 14.6 % 11.6-14.4 H PLATELET COUNT (BEAKER) (test code = 756) 143 K/CU MM 150-450 L MEAN PLATELET VOLUME (BEAKER) (test code = 754) 12.2 fL 9.4-12 .4 NUCLEATED RED BLOOD CELLS (BEAKER) (test code = 413) 0 /100 WBC 0 -0 NEUTROPHILS RELATIVE PERCENT (BEAKER) (test code = 429) 72 % LYMPHOCYTES RELATIVE PERCENT (BEAKER) (test code = 430) 8 % MONOCYTES RELATIVE PERCENT (BEAKER) (test code = 431) 9 % EOSINOPHILS RELATIVE PERCENT (BEAKER) (test code = 432) 8 % BASOPHILS RELATIVE PERCENT (BEAKER) (test code = 437) 0 % NEUTROPHILS ABSOLUTE COUNT (BEAKER) (test code = 670) 5.15 K/ L 1.78-5.38 LYMPHOCYTES ABSOLUTE COUNT (BEAKER) (test code = 414) 0.60 K/ L 1.32-3.57 L MONOCYTES ABSOLUTE COUNT (BEAKER) (test code = 415) 0.67 K/ L 0. 30-0.82 EOSINOPHILS ABSOLUTE COUNT (BEAKER) (test code = 416) 0.53 K/ L 0.04-0.54 BASOPHILS ABSOLUTE COUNT (BEAKER) (test code = 417) 0.02 K/ L 0. 01-0.08 IMMATURE GRANULOCYTES-RELATIVE PERCENT (BEAKER) (test code = 2801) 2 % 0-1 H [id number] 06:17:00* Test Item Value Reference Range Interpretation Comments MAGNESIUM (BEAKER) (test code = 627) 2.1 mg/dL 1.6-2.6 Specimen slightly hemolyzed Marketing Strategy Manager ID - IVELISSE WBASIC METABOLIC [id number] 06:17:00* Test Item Value Reference Range Interpretation Comments SODIUM (BEAKER) (test code = 381) 144 meq/L 136-145 POTASSIUM (BEAKER) (test code = 379) 4.7 meq/L 3.5-5.1 Specimen slightly hemolyzed CHLORIDE (BEAKER) (test code = 382) 106 meq/L 98-107 CO2 (BEAKER) (test code = 355) 26 meq/L 22-29 BLOOD UREA NITROGEN (BEAKER) (test code = 354) 118 mg/dL 7-21 H CREATININE (BEAKER) (test code = 358) 2.18 mg/dL 0.57-1.25 H Specimen slightly hemolyzed GLUCOSE RANDOM (BEAKER) (test code = 652) 271 mg/dL 70-105 H CALCIUM (BEAKER) (test code = 697) 8.7 mg/dL 8.4-10.2 EGFR (BEAKER) (test code = 1092) 32 mL/min/1.73 sq m ESTIMATED GFR IS NOT ACCURATE CREATININE CLEARANCE IN PREDICTING GLOMERULAR FILTRATION RATE. ESTIMATED GFR IS NOT APPLICABLE FOR DIALYSIS PATIENTS. Marketing Strategy Manager ID - IVELISSE [facility] FUNCTION [id number] 06:17:00* Test Item Value Reference Range Interpretation Comments TOTAL PROTEIN (BEAKER) (test code = 770) 6.4 gm/dL 6.0-8.3 Specimen slightly hemolyzed ALBUMIN (BEAKER) (test code = 1145) 2.9 g/dL 3.5-5.0 L Specimen slightly hemolyzed BILIRUBIN TOTAL (BEAKER) (test code = 377) 1.3 mg/dL 0.2-1.2 H Specimen slightly hemolyzed BILIRUBIN DIRECT (BEAKER) (test code = 706) 1.0 mg/dL 0.1-0.5 H Specimen slightly hemolyzed ALKALINE PHOSPHATASE (BEAKER) (test code = 346) 519 U/L 40-150 H AST (SGOT) (BEAKER) (test code = 353) 152 U/L 5-34 H Specimen slightly hemolyzed ALT (SGPT) (BEAKER) (test code = 347) 512 U/L 6-55 H Specimen slightly hemolyzed Marketing Strategy Manager ID - IVELISSE WPOCT-GLUCOSE [id number] 00:10:00* Test Item Value Reference Range Interpretation Comments POC-GLUCOSE METER (BEAKER) (test code = 1538) 230 mg/dL 70-110 H : TESTED AT [address], [address]: Marketing Strategy Manager/Clinical Laboratory Technician ID = [id number] for HENDRICKSONLETA POCT-GLUCOSE [id number] 18:36:00* Test Item Value Reference Range Interpretation Comments POC-GLUCOSE METER (BEAKER) (test code = 1538) 244 mg/dL 70-110 H : TESTED AT [place] [id number] [facility], [address]: Marketing Strategy Manager/Clinical Laboratory Technician ID = [id number] for RAJ MAJOR BASIC METABOLIC [id number] 16:28:00* Test Item Value Reference Range Interpretation Comments SODIUM (BEAKER) (test code = 381) 141 meq/L 136-145 POTASSIUM (BEAKER) (test code = 379) 4.3 meq/L 3.5-5.1 CHLORIDE (BEAKER) (test code = 382) 103 meq/L 98-107 CO2 (BEAKER) (test code = 355) 24 meq/L 22-29 BLOOD UREA NITROGEN (BEAKER) (test code = 354) 105 mg/dL 7-21 H CREATININE (BEAKER) (test code = 358) 2.19 mg/dL 0.57-1.25 H GLUCOSE RANDOM (BEAKER) (test code = 652) 284 mg/dL 70-105 H CALCIUM (BEAKER) (test code = 697) 8.5 mg/dL 8.4-10.2 EGFR (BEAKER) (test code = 1092) 31 mL/min/1.73 sq m ESTIMATED GFR IS NOT ACCURATE CREATININE CLEARANCE IN PREDICTING GLOMERULAR FILTRATION RATE. ESTIMATED GFR IS NOT APPLICABLE FOR DIALYSIS PATIENTS. Marketing Strategy Manager ID - BSUrine [id number] 16:27:00* Test Item Value Reference Range Interpretation Comments Result (test code = 6463-4) >100,000 col/mL Erika glabrata A Gram Stain Result (test code = 1123) 4+ budding yeast Lab Interpretation (test code = 10587-8) [facility]normal [id number] 16:25:00* Test Item Value Reference Range Interpretation Comments MAGNESIUM (BEAKER) (test code = 627) 2.1 mg/dL 1.6-2.6 Marketing Strategy Manager ID - BSBLOOD GAS, [id number] 16:07:00* Test Item Value Reference Range Interpretation Comments PH ARTERIAL (BEAKER) (test code = 383) 7.43 7.35-7.45 PCO2 ARTERIAL (BEAKER) (test code = 384) 45 mmHg 35-45 PO2 ARTERIAL (BEAKER) (test code = 385) 179 mmHg 80-90 H O2 SATURATION ARTERIAL (BEAKER) (test code = 386) 99.2 % 96.0 -97.0 H HCO3 ARTERIAL (BEAKER) (test code = 388) 29 mmol/L 21-29 BASE EXCESS ARTERIAL (BEAKER) (test code = 387) 4.8 mmol/L -2.0-3 .0 H PATIENT TEMPERATURE (BEAKER) (test code = 1818) 38.0 C FIO2 (BEAKER) (test code = 1819) 40.0 % POCT-GLUCOSE [id number] 12:38:00* Test Item Value Reference Range Interpretation Comments POC-GLUCOSE METER (BEAKER) (test code = 1538) 257 mg/dL 70-110 H : TESTED AT [address] [place], [address]: Marketing Strategy Manager/Clinical Laboratory Technician ID = [id number] for YAHIR NIEVES POCT-GLUCOSE [id number] 06:10:00* Test Item Value Reference Range Interpretation Comments POC-GLUCOSE METER (BEAKER) (test code = 1538) 252 mg/dL 70-110 H : TESTED AT [facility] [address] [facility], [address]: Marketing Strategy Manager/Clinical Laboratory Technician ID = [id number] for MARIYA BAEZA HEPATIC FUNCTION [id number] 05:51:00* Test Item Value Reference Range Interpretation Comments TOTAL PROTEIN (BEAKER) (test code = 770) 6.3 gm/dL 6.0-8.3 ALBUMIN (BEAKER) (test code = 1145) 2.9 g/dL 3.5-5.0 L BILIRUBIN TOTAL (BEAKER) (test code = 377) 1.1 mg/dL 0.2-1.2 BILIRUBIN DIRECT (BEAKER) (test code = 706) 1.0 mg/dL 0.1-0.5 H ALKALINE PHOSPHATASE (BEAKER) (test code = 346) 512 U/L 40-150 H AST (SGOT) (BEAKER) (test code = 353) 145 U/L 5-34 H ALT (SGPT) (BEAKER) (test code = 347) 530 U/L 6-55 H Marketing Strategy Manager ID - ALLISON MBASIC METABOLIC [id number] 05:51:00* Test Item Value Reference Range Interpretation Comments SODIUM (BEAKER) (test code = 381) 140 meq/L 136-145 POTASSIUM (BEAKER) (test code = 379) 4.3 meq/L 3.5-5.1 CHLORIDE (BEAKER) (test code = 382) 103 meq/L 98-107 CO2 (BEAKER) (test code = 355) 27 meq/L 22-29 BLOOD UREA NITROGEN (BEAKER) (test code = 354) 86 mg/dL 7-21 H CREATININE (BEAKER) (test code = 358) 1.98 mg/dL 0.57-1.25 H GLUCOSE RANDOM (BEAKER) (test code = 652) 234 mg/dL 70-105 H CALCIUM (BEAKER) (test code = 697) 8.5 mg/dL 8.4-10.2 EGFR (BEAKER) (test code = 1092) 35 mL/min/1.73 sq m ESTIMATED GFR IS NOT ACCURATE CREATININE CLEARANCE IN PREDICTING GLOMERULAR FILTRATION RATE. ESTIMATED GFR IS NOT APPLICABLE FOR DIALYSIS PATIENTS. Marketing Strategy Manager ID - ALLISON MCBC W/PLT COUNT & AUTO [id number] 04:59:00* Test Item Value Reference Range Interpretation Comments WHITE BLOOD CELL COUNT (BEAKER) (test code = 775) 5.7 K/ L 3.5- 10.5 RED BLOOD CELL COUNT (BEAKER) (test code = 761) 2.56 M/ L 4.63-6 .08 L HEMOGLOBIN (BEAKER) (test code = 410) 7.5 GM/DL 13.7-17.5 L HEMATOCRIT (BEAKER) (test code = 411) 25.0 % 40.1-51.0 L MEAN CORPUSCULAR VOLUME (BEAKER) (test code = 753) 97.7 fL 79. 0-92.2 H MEAN CORPUSCULAR HEMOGLOBIN (BEAKER) (test code = 751) 29.3 pg 25.7-32.2 MEAN CORPUSCULAR HEMOGLOBIN CONC (BEAKER) (test code = 752) 30.0 GM/DL 32.3-36.5 L RED CELL DISTRIBUTION WIDTH (BEAKER) (test code = 412) 14.7 % 11.6-14.4 H PLATELET COUNT (BEAKER) (test code = 756) 120 K/CU MM 150-450 L MEAN PLATELET VOLUME (BEAKER) (test code = 754) 12.3 fL 9.4-12 .4 NUCLEATED RED BLOOD CELLS (BEAKER) (test code = 413) 0 /100 WBC 0 -0 NEUTROPHILS RELATIVE PERCENT (BEAKER) (test code = 429) 67 % LYMPHOCYTES RELATIVE PERCENT (BEAKER) (test code = 430) 12 % MONOCYTES RELATIVE PERCENT (BEAKER) (test code = 431) 10 % EOSINOPHILS RELATIVE PERCENT (BEAKER) (test code = 432) 9 % BASOPHILS RELATIVE PERCENT (BEAKER) (test code = 437) 0 % NEUTROPHILS ABSOLUTE COUNT (BEAKER) (test code = 670) 3.79 K/ L 1.78-5.38 LYMPHOCYTES ABSOLUTE COUNT (BEAKER) (test code = 414) 0.66 K/ L 1.32-3.57 L MONOCYTES ABSOLUTE COUNT (BEAKER) (test code = 415) 0.55 K/ L 0. 30-0.82 EOSINOPHILS ABSOLUTE COUNT (BEAKER) (test code = 416) 0.51 K/ L 0.04-0.54 BASOPHILS ABSOLUTE COUNT (BEAKER) (test code = 417) 0.02 K/ L 0. 01-0.08 IMMATURE GRANULOCYTES-RELATIVE PERCENT (BEAKER) (test code = 2801) 2 % 0-1 H Vancomycin level, [id number] 04:56:00* Test Item Value Reference Range Interpretation Comments Vancomycin Rm (test code = 14204-2) 15.2 ug/mL LOY (test code = LOY) Reference Range: No NormalsOperator ID - ALLISON [facility] CenterVANCOMYCIN LEVEL, [id number] 04:56:00* Test Item Value Reference Range Interpretation Comments VANCOMYCIN RANDOM (BEAKER) (test code = 523) 15.2 ug/mL Reference Range: No NormalsOperator ID - ALLISON MBLOOD GAS, [id number] 04:53:00* Test Item Value Reference Range Interpretation Comments PH ARTERIAL (BEAKER) (test code = 383) 7.38 7.35-7.45 PCO2 ARTERIAL (BEAKER) (test code = 384) 52 mmHg 35-45 H PO2 ARTERIAL (BEAKER) (test code = 385) 154 mmHg 80-90 H O2 SATURATION ARTERIAL (BEAKER) (test code = 386) 98.9 % 96.0 -97.0 H HCO3 ARTERIAL (BEAKER) (test code = 388) 30 mmol/L 21-29 H BASE EXCESS ARTERIAL (BEAKER) (test code = 387) 4.4 mmol/L -2.0-3 .0 H PATIENT TEMPERATURE (BEAKER) (test code = 1818) 38.0 C FIO2 (BEAKER) (test code = 1819) 40.0 % POCT-GLUCOSE [id number] 00:08:00* Test Item Value Reference Range Interpretation Comments POC-GLUCOSE METER (BEAKER) (test code = 1538) 191 mg/dL 70-110 H : TESTED AT [facility] [address] [facility], [address]: Marketing Strategy Manager/Clinical Laboratory Technician ID = [id number] for MAGALI MARIYA POCT-GLUCOSE [id number] 17:43:00* Test Item Value Reference Range Interpretation Comments POC-GLUCOSE METER (BEAKER) (test code = 1538) 247 mg/dL 70-110 H : TESTED AT [facility] [address] [facility] [place], [address]: Marketing Strategy Manager/Clinical Laboratory Technician ID = [id number] for SHAN SMITH [id number] 16:02:00* Test Item Value Reference Range Interpretation Comments Phosphorus (test code = 2777-1) 3.0 mg/dL 2.3-4.7 LOY (test code = LOY) Marketing Strategy Manager ID - EDASI Lab Interpretation (test code = 86933-1) Normal [facility] [id number] 16:02:00* Test Item Value Reference Range Interpretation Comments PHOSPHORUS (BEAKER) (test code = 604) 3.0 mg/dL 2.3-4.7 Marketing Strategy Manager ID - [id number] 16:02:00* Test Item Value Reference Range Interpretation Comments MAGNESIUM (BEAKER) (test code = 627) 1.9 mg/dL 1.6-2.6 Marketing Strategy Manager ID - EDASIBASIC METABOLIC [id number] 16:02:00* Test Item Value Reference Range Interpretation Comments SODIUM (BEAKER) (test code = 381) 140 meq/L 136-145 POTASSIUM (BEAKER) (test code = 379) 4.6 meq/L 3.5-5.1 CHLORIDE (BEAKER) (test code = 382) 102 meq/L 98-107 CO2 (BEAKER) (test code = 355) 27 meq/L 22-29 BLOOD UREA NITROGEN (BEAKER) (test code = 354) 65 mg/dL 7-21 H CREATININE (BEAKER) (test code = 358) 1.77 mg/dL 0.57-1.25 H GLUCOSE RANDOM (BEAKER) (test code = 652) 287 mg/dL 70-105 H CALCIUM (BEAKER) (test code = 697) 8.2 mg/dL 8.4-10.2 L EGFR (BEAKER) (test code = 1092) 40 mL/min/1.73 sq m ESTIMATED GFR IS NOT ACCURATE CREATININE CLEARANCE IN PREDICTING GLOMERULAR FILTRATION RATE. ESTIMATED GFR IS NOT APPLICABLE FOR DIALYSIS PATIENTS. Marketing Strategy Manager ID - EDASIBLOOD GAS, [id number] 15:55:00* Test Item Value Reference Range Interpretation Comments PH ARTERIAL (BEAKER) (test code = 383) 7.40 7.35-7.45 PCO2 ARTERIAL (BEAKER) (test code = 384) 49 mmHg 35-45 H PO2 ARTERIAL (BEAKER) (test code = 385) 145 mmHg 80-90 H O2 SATURATION ARTERIAL (BEAKER) (test code = 386) 98.8 % 96.0 -97.0 H HCO3 ARTERIAL (BEAKER) (test code = 388) 30 mmol/L 21-29 H BASE EXCESS ARTERIAL (BEAKER) (test code = 387) 4.8 mmol/L -2.0-3 .0 H PATIENT TEMPERATURE (BEAKER) (test code = 1818) 37.0 C FIO2 (BEAKER) (test code = 1819) 40.0 % Sputum Culture + Gram [id number] 09:50:00* Test Item Value Reference Range Interpretation Comments Result (test code = 6463-4) 2+ Normal respiratory stacie present Gram Stain Result (test code = 1123) <1+ budding [facility]AM [id number] 09:50:00* Test Item Value Reference Range Interpretation Comments CULTURE (BEAKER) (test code = 1095) 2+ Normal respiratory stacie pre sent GRAM STAIN RESULT (BEAKER) (test code = 1123) 3+ WBCs GRAM STAIN RESULT (BEAKER) (test code = 64700) 0-5 epithelial cells GRAM STAIN RESULT (BEAKER) (test code = 29698) <1+ gra m positive cocci in chains, pairs and clusters GRAM STAIN RESULT (BEAKER) (test code = 113625) <1+ budding yeast [id number] 07:46:00* Test Item Value Reference Range Interpretation Comments MAGNESIUM (BEAKER) (test code = 627) 1.9 mg/dL 1.6-2.6 Marketing Strategy Manager ID - ALLISON MHepatitis B surface [id number] 04:52:00* Test Item Value Reference Range Interpretation Comments HBsAg Screen (test code = 5195-3) Nonreactive Nonreactive LOY (test code = LOY) Specimen is considered negative for HBsAg. Lab Interpretation (test code = 36057-5) Normal [facility] Center[facility]AT[facility]IS [facility] SURFACE [id number] 04:52:00* Test Item Value Reference Range Interpretation Comments HEPATITIS B SURFACE ANTIGEN (2) (BEAKER) (test code = 2585) Nonreactive Nonreactive Specimen is considered negative for HBsAg.HEPATIC FUNCTION [id number] 04:29:00* Test Item Value Reference Range Interpretation Comments TOTAL PROTEIN (BEAKER) (test code = 770) 6.2 gm/dL 6.0-8.3 ALBUMIN (BEAKER) (test code = 1145) 2.9 g/dL 3.5-5.0 L BILIRUBIN TOTAL (BEAKER) (test code = 377) 1.2 mg/dL 0.2-1.2 BILIRUBIN DIRECT (BEAKER) (test code = 706) 1.0 mg/dL 0.1-0.5 H ALKALINE PHOSPHATASE (BEAKER) (test code = 346) 544 U/L 40-150 H AST (SGOT) (BEAKER) (test code = 353) 170 U/L 5-34 H ALT (SGPT) (BEAKER) (test code = 347) 644 U/L 6-55 H Marketing Strategy Manager ID - EDASIBASIC METABOLIC [id number] 04:29:00* Test Item Value Reference Range Interpretation Comments SODIUM (BEAKER) (test code = 381) 140 meq/L 136-145 POTASSIUM (BEAKER) (test code = 379) 4.1 meq/L 3.5-5.1 CHLORIDE (BEAKER) (test code = 382) 102 meq/L 98-107 CO2 (BEAKER) (test code = 355) 29 meq/L 22-29 BLOOD UREA NITROGEN (BEAKER) (test code = 354) 43 mg/dL 7-21 H CREATININE (BEAKER) (test code = 358) 1.19 mg/dL 0.57-1.25 GLUCOSE RANDOM (BEAKER) (test code = 652) 183 mg/dL 70-105 H CALCIUM (BEAKER) (test code = 697) 8.2 mg/dL 8.4-10.2 L EGFR (BEAKER) (test code = 1092) 63 mL/min/1.73 sq m ESTIMATED GFR IS NOT ACCURATE CREATININE CLEARANCE IN PREDICTING GLOMERULAR FILTRATION RATE. ESTIMATED GFR IS NOT APPLICABLE FOR DIALYSIS PATIENTS. Marketing Strategy Manager ID - EDASIVANCOMYCIN LEVEL, [id number] 04:29:00* Test Item Value Reference Range Interpretation Comments VANCOMYCIN RANDOM (BEAKER) (test code = 523) 11.1 ug/mL Reference Range: No NormalsOperator ID - ALLISON MCBC W/PLT COUNT & AUTO [id number] 04:08:00* Test Item Value Reference Range Interpretation Comments WHITE BLOOD CELL COUNT (BEAKER) (test code = 775) 5.5 K/ L 3.5- 10.5 RED BLOOD CELL COUNT (BEAKER) (test code = 761) 2.52 M/ L 4.63-6 .08 L HEMOGLOBIN (BEAKER) (test code = 410) 7.5 GM/DL 13.7-17.5 L HEMATOCRIT (BEAKER) (test code = 411) 24.9 % 40.1-51.0 L MEAN CORPUSCULAR VOLUME (BEAKER) (test code = 753) 98.8 fL 79. 0-92.2 H MEAN CORPUSCULAR HEMOGLOBIN (BEAKER) (test code = 751) 29.8 pg 25.7-32.2 MEAN CORPUSCULAR HEMOGLOBIN CONC (BEAKER) (test code = 752) 30.1 GM/DL 32.3-36.5 L RED CELL DISTRIBUTION WIDTH (BEAKER) (test code = 412) 14.6 % 11.6-14.4 H PLATELET COUNT (BEAKER) (test code = 756) 104 K/CU MM 150-450 L MEAN PLATELET VOLUME (BEAKER) (test code = 754) 11.9 fL 9.4-12 .4 NUCLEATED RED BLOOD CELLS (BEAKER) (test code = 413) 0 /100 WBC 0 -0 NEUTROPHILS RELATIVE PERCENT (BEAKER) (test code = 429) 69 % LYMPHOCYTES RELATIVE PERCENT (BEAKER) (test code = 430) 10 % MONOCYTES RELATIVE PERCENT (BEAKER) (test code = 431) 11 % EOSINOPHILS RELATIVE PERCENT (BEAKER) (test code = 432) 8 % BASOPHILS RELATIVE PERCENT (BEAKER) (test code = 437) 0 % NEUTROPHILS ABSOLUTE COUNT (BEAKER) (test code = 670) 3.79 K/ L 1.78-5.38 LYMPHOCYTES ABSOLUTE COUNT (BEAKER) (test code = 414) 0.52 K/ L 1.32-3.57 L MONOCYTES ABSOLUTE COUNT (BEAKER) (test code = 415) 0.58 K/ L 0. 30-0.82 EOSINOPHILS ABSOLUTE COUNT (BEAKER) (test code = 416) 0.45 K/ L 0.04-0.54 BASOPHILS ABSOLUTE COUNT (BEAKER) (test code = 417) 0.02 K/ L 0. 01-0.08 IMMATURE GRANULOCYTES-RELATIVE PERCENT (BEAKER) (test code = 2801) 2 % 0-1 H BLOOD GAS, [id number] 03:59:00* Test Item Value Reference Range Interpretation Comments PH ARTERIAL (BEAKER) (test code = 383) 7.36 7.35-7.45 PCO2 ARTERIAL (BEAKER) (test code = 384) 60 mmHg 35-45 H PO2 ARTERIAL (BEAKER) (test code = 385) 202 mmHg 80-90 H O2 SATURATION ARTERIAL (BEAKER) (test code = 386) 99.3 % 96.0 -97.0 H HCO3 ARTERIAL (BEAKER) (test code = 388) 33 mmol/L 21-29 H BASE EXCESS ARTERIAL (BEAKER) (test code = 387) 6.3 mmol/L -2.0-3 .0 H PATIENT TEMPERATURE (BEAKER) (test code = 1818) 37.5 C FIO2 (BEAKER) (test code = 1819) 50.0 % POCT-GLUCOSE [id number] 00:38:00* Test Item Value Reference Range Interpretation Comments POC-GLUCOSE METER (BEAKER) (test code = 1538) 178 mg/dL 70-110 H : TESTED AT [facility] [address] [facility] [place], [id number]: Marketing Strategy Manager/Clinical Laboratory Technician ID = [id number] for Kamila Alcantar (contract) HEMODIALYSIS [id number] 20:13:37Charley Forbes RN 01/29/2020 8:20 PM 3 hours HD completed. Net UF of 2 L. Pt tolerated tx well. Reports given to primary RN BP 119/57 | Pulse 111 | Temp 97.1 F (36.2 C) (Temporal Artery) | Resp 22 | Ht 1.778 m (5' 10") | Wt 92.7 kg (204 lb 5.9 oz) | SpO2 99% | BMI 29.32 kg/m2 Lab Results Component Value Date GLUCOSE 266 (H) 01/29/2020 CALCIUM 8.2 (L) 01/29/2020 NA 140 01/29/2020 K 4.1 01/29/2020 CO2 30 (H) 01/29/2020 CL 101 01/29/2020 BUN 74 (H) 01/29/2020 CREATININE 1.55 (H) 01/29/2020 Lab Results Component Value Date WBC 4.7 01/29/2020 HGB 7.2 (L) 01/29/2020 HCT 23.3 (L) 01/29/2020 MCV 98.7 (H) 01/29/2020 PLT 103 (L) 01/29/2020 Lab Results Component Value Date HEPBSAG Nonreactive 2019 Lab Results Component Value Date HEPBSAB <8.0 2019 No Known Allergies Chief Complaint Patient presents with Sh ortness of Breath Active Ambulatory Problems Diagnosis Date Noted No Act vince Ambulatory Problems Resolved Ambulatory Problems Diagnosis Date Noted No Resolved Ambulatory Problems No Additional Past Medical History Past Surg ical History: Procedure Laterality Date TRACHEOSTOMY N/A 01/15/2020 Procedure : TRACHEOSTOMY; Surgeon: Eric Grimaldo MD; Location: [facility] OR; [facility] ce: Thoracic Surgery; Laterality: N/A; [id number]* Test Item Value Reference Range Interpretation Comments MAGNESIUM (BEAKER) (test code = 627) 1.8 mg/dL 1.6-2.6 Marketing Strategy Manager ID - ALLISON MBASIC METABOLIC [id number] 15:40:00* Test Item Value Reference Range Interpretation Comments SODIUM (BEAKER) (test code = 381) 140 meq/L 136-145 POTASSIUM (BEAKER) (test code = 379) 4.1 meq/L 3.5-5.1 CHLORIDE (BEAKER) (test code = 382) 101 meq/L 98-107 CO2 (BEAKER) (test code = 355) 30 meq/L 22-29 H BLOOD UREA NITROGEN (BEAKER) (test code = 354) 74 mg/dL 7-21 H CREATININE (BEAKER) (test code = 358) 1.55 mg/dL 0.57-1.25 H GLUCOSE RANDOM (BEAKER) (test code = 652) 266 mg/dL 70-105 H CALCIUM (BEAKER) (test code = 697) 8.2 mg/dL 8.4-10.2 L EGFR (BEAKER) (test code = 1092) 47 mL/min/1.73 sq m ESTIMATED GFR IS NOT ACCURATE CREATININE CLEARANCE IN PREDICTING GLOMERULAR FILTRATION RATE. ESTIMATED GFR IS NOT APPLICABLE FOR DIALYSIS PATIENTS. Marketing Strategy Manager ANGELINA LIAOOOD GAS, [id number] 15:12:00* Test Item Value Reference Range Interpretation Comments PH ARTERIAL (BEAKER) (test code = 383) 7.37 7.35-7.45 PCO2 ARTERIAL (BEAKER) (test code = 384) 53 mmHg 35-45 H PO2 ARTERIAL (BEAKER) (test code = 385) 190 mmHg 80-90 H O2 SATURATION ARTERIAL (BEAKER) (test code = 386) 99.2 % 96.0 -97.0 H HCO3 ARTERIAL (BEAKER) (test code = 388) 30 mmol/L 21-29 H BASE EXCESS ARTERIAL (BEAKER) (test code = 387) 4.2 mmol/L -2.0-3 .0 H PATIENT TEMPERATURE (BEAKER) (test code = 1818) 37.0 C FIO2 (BEAKER) (test code = 1819) 50.0 % Urinalysis w/Microscopic + Reflex to [id number] 10:06:00* Test Item Value Reference Range Interpretation Comments Color, UA (test code = 5778-6) Yellow Clarity, UA (test code = 5767-9) Cloudy Specific [place], UA (test code = 5811-5) 1.013 1.001-1.035 pH, UA (test code = 5803-2) 5.0 5.0-8.0 Protein, UA (test code = 40000-0) 30 mg/dL Negative A Glucose, UA (test code = 365) Negative Negative Ketones, UA (test code = 2514-8) Negative Negative Bilirubin, UA (test code = 08091-6) Negative Negative Blood, UA (test code = 39383-0) Moderate Negative A Nitrite, UA (test code = 5802-4) Negative Negative Leukocytes, UA (test code = 5799-2) Large Negative A Urobilinogen, UA (test code = 89949-1) 3.0 mg/dL 0.2-1 H RBC, UA (test code = 89376-5) 36 /HPF WBC, UA (test code = 5821-4) 102 /HPF Bacteria, UA (test code = 03556-9) Rare Mucus (test code = 8247-9) Few Squam Epithel, UA (test code = 42770-2) 3 /HPF Hyaline Casts, UA (test code = 39461-4) 23 /LPF Yeast (test code = 93710-0) Many Specimen Source (test code = 2795) LOY (test code = LOY) Marketing Strategy Manager ID - [auto]Marketing Strategy Manager ID - tech Lab Interpretation (test code = 18390-5) [facility] [id number] 10:06:00* Test Item Value Reference Range Interpretation Comments COLOR (BEAKER) (test code = 470) Yellow CLARITY (BEAKER) (test code = 469) Cloudy SPECIFIC GRAVITY UA (BEAKER) (test code = 468) 1.013 1.001-1 .035 PH UA (BEAKER) (test code = 467) 5.0 5.0-8.0 PROTEIN UA (BEAKER) (test code = 464) 30 mg/dL Negative A GLUCOSE UA (BEAKER) (test code = 365) Negative Negative KETONES UA (BEAKER) (test code = 371) Negative Negative BILIRUBIN UA (BEAKER) (test code = 462) Negative Negative BLOOD UA (BEAKER) (test code = 461) Moderate Negative A NITRITE UA (BEAKER) (test code = 465) Negative Negative LEUKOCYTE ESTERASE UA (BEAKER) (test code = 466) Large Negat vince A UROBILINOGEN UA (BEAKER) (test code = 463) 3.0 mg/dL 0.2-1.0 H RBC UA (BEAKER) (test code = 519) 36 /HPF WBC UA (BEAKER) (test code = 520) 102 /HPF BACTERIA (BEAKER) (test code = 517) Rare MUCUS (BEAKER) (test code = 1574) Few SQUAMOUS EPITHELIAL (BEAKER) (test code = 516) 3 /HPF HYALINE CASTS (BEAKER) (test code = 514) 23 /LPF YEAST (BEAKER) (test code = 1585) Many SOURCE(BEAKER) (test code = 2795) Marketing Strategy Manager ID - [auto]Marketing Strategy Manager ID - techPOCT-GLUCOSE [id number] 06:39:00* Test Item Value Reference Range Interpretation Comments POC-GLUCOSE METER (BEAKER) (test code = 1538) 292 mg/dL 70-110 H : TESTED AT [facility] [address] [place], [address]: Marketing Strategy Manager/Clinical Laboratory Technician ID = [id number] for SCARLET LIGHT [id number] 06:08:00* Test Item Value Reference Range Interpretation Comments MAGNESIUM (BEAKER) (test code = 627) 1.8 mg/dL 1.6-2.6 Marketing Strategy Manager ID - ALLISON MBASIC METABOLIC [id number] 06:08:00* Test Item Value Reference Range Interpretation Comments SODIUM (BEAKER) (test code = 381) 138 meq/L 136-145 POTASSIUM (BEAKER) (test code = 379) 4.1 meq/L 3.5-5.1 CHLORIDE (BEAKER) (test code = 382) 100 meq/L 98-107 CO2 (BEAKER) (test code = 355) 30 meq/L 22-29 H BLOOD UREA NITROGEN (BEAKER) (test code = 354) 64 mg/dL 7-21 H CREATININE (BEAKER) (test code = 358) 1.42 mg/dL 0.57-1.25 H GLUCOSE RANDOM (BEAKER) (test code = 652) 313 mg/dL 70-105 H CALCIUM (BEAKER) (test code = 697) 8.2 mg/dL 8.4-10.2 L EGFR (BEAKER) (test code = 1092) 52 mL/min/1.73 sq m ESTIMATED GFR IS NOT ACCURATE CREATININE CLEARANCE IN PREDICTING GLOMERULAR FILTRATION RATE. ESTIMATED GFR IS NOT APPLICABLE FOR DIALYSIS PATIENTS. Marketing Strategy Manager ID - ALLISON EPATIC FUNCTION [id number] 06:08:00* Test Item Value Reference Range Interpretation Comments TOTAL PROTEIN (BEAKER) (test code = 770) 6.1 gm/dL 6.0-8.3 ALBUMIN (BEAKER) (test code = 1145) 2.8 g/dL 3.5-5.0 L BILIRUBIN TOTAL (BEAKER) (test code = 377) 1.2 mg/dL 0.2-1.2 BILIRUBIN DIRECT (BEAKER) (test code = 706) 1.0 mg/dL 0.1-0.5 H ALKALINE PHOSPHATASE (BEAKER) (test code = 346) 567 U/L 40-150 H AST (SGOT) (BEAKER) (test code = 353) 193 U/L 5-34 H ALT (SGPT) (BEAKER) (test code = 347) 664 U/L 6-55 H Marketing Strategy Manager ID - ALLISON MCBC W/PLT COUNT & AUTO [id number] 05:46:00* Test Item Value Reference Range Interpretation Comments WHITE BLOOD CELL COUNT (BEAKER) (test code = 775) 4.7 K/ L 3.5- 10.5 RED BLOOD CELL COUNT (BEAKER) (test code = 761) 2.36 M/ L 4.63-6 .08 L HEMOGLOBIN (BEAKER) (test code = 410) 7.2 GM/DL 13.7-17.5 L HEMATOCRIT (BEAKER) (test code = 411) 23.3 % 40.1-51.0 L MEAN CORPUSCULAR VOLUME (BEAKER) (test code = 753) 98.7 fL 79. 0-92.2 H MEAN CORPUSCULAR HEMOGLOBIN (BEAKER) (test code = 751) 30.5 pg 25.7-32.2 MEAN CORPUSCULAR HEMOGLOBIN CONC (BEAKER) (test code = 752) 30.9 GM/DL 32.3-36.5 L RED CELL DISTRIBUTION WIDTH (BEAKER) (test code = 412) 15.3 % 11.6-14.4 H PLATELET COUNT (BEAKER) (test code = 756) 103 K/CU MM 150-450 L MEAN PLATELET VOLUME (BEAKER) (test code = 754) 12.2 fL 9.4-12 .4 NUCLEATED RED BLOOD CELLS (BEAKER) (test code = 413) 0 /100 WBC 0 -0 NEUTROPHILS RELATIVE PERCENT (BEAKER) (test code = 429) 73 % LYMPHOCYTES RELATIVE PERCENT (BEAKER) (test code = 430) 10 % MONOCYTES RELATIVE PERCENT (BEAKER) (test code = 431) 10 % EOSINOPHILS RELATIVE PERCENT (BEAKER) (test code = 432) 3 % BASOPHILS RELATIVE PERCENT (BEAKER) (test code = 437) 0 % NEUTROPHILS ABSOLUTE COUNT (BEAKER) (test code = 670) 3.40 K/ L 1.78-5.38 LYMPHOCYTES ABSOLUTE COUNT (BEAKER) (test code = 414) 0.45 K/ L 1.32-3.57 L MONOCYTES ABSOLUTE COUNT (BEAKER) (test code = 415) 0.49 K/ L 0. 30-0.82 EOSINOPHILS ABSOLUTE COUNT (BEAKER) (test code = 416) 0.15 K/ L 0.04-0.54 BASOPHILS ABSOLUTE COUNT (BEAKER) (test code = 417) 0.01 K/ L 0. 01-0.08 IMMATURE GRANULOCYTES-RELATIVE PERCENT (BEAKER) (test code = 2801) 4 % 0-1 H BLOOD GAS, [id number] 05:09:00* Test Item Value Reference Range Interpretation Comments PH ARTERIAL (BEAKER) (test code = 383) 7.37 7.35-7.45 PCO2 ARTERIAL (BEAKER) (test code = 384) 54 mmHg 35-45 H PO2 ARTERIAL (BEAKER) (test code = 385) 180 mmHg 80-90 H O2 SATURATION ARTERIAL (BEAKER) (test code = 386) 99.2 % 96.0 -97.0 H HCO3 ARTERIAL (BEAKER) (test code = 388) 31 mmol/L 21-29 H BASE EXCESS ARTERIAL (BEAKER) (test code = 387) 5.0 mmol/L -2.0-3 .0 H PATIENT TEMPERATURE (BEAKER) (test code = 1818) 36.9 C FIO2 (BEAKER) (test code = 1819) 50.0 % POCT-GLUCOSE [id number] 00:22:00* Test Item Value Reference Range Interpretation Comments POC-GLUCOSE METER (BEAKER) (test code = 1538) 213 mg/dL 70-110 H : TESTED AT [place] [id number] [facility] [place], [address]: Marketing Strategy Manager/Clinical Laboratory Technician ID = [id number] for SCARLET LIGHT POCT-GLUCOSE [id number] 19:55:00* Test Item Value Reference Range Interpretation Comments POC-GLUCOSE METER (BEAKER) (test code = 1538) 185 mg/dL 70-110 H : TESTED AT [facility] [address] [facility] [place], [address]: Marketing Strategy Manager/Clinical Laboratory Technician ID = [id number] for Kamila Alcantar (contract) [id number] 16:00:00* Test Item Value Reference Range Interpretation Comments MAGNESIUM (BEAKER) (test code = 627) 1.7 mg/dL 1.6-2.6 Marketing Strategy Manager ID - NTPBASIC METABOLIC [id number] 16:00:00* Test Item Value Reference Range Interpretation Comments SODIUM (BEAKER) (test code = 381) 139 meq/L 136-145 POTASSIUM (BEAKER) (test code = 379) 3.9 meq/L 3.5-5.1 CHLORIDE (BEAKER) (test code = 382) 101 meq/L 98-107 CO2 (BEAKER) (test code = 355) 30 meq/L 22-29 H BLOOD UREA NITROGEN (BEAKER) (test code = 354) 39 mg/dL 7-21 H CREATININE (BEAKER) (test code = 358) 0.83 mg/dL 0.57-1.25 GLUCOSE RANDOM (BEAKER) (test code = 652) 228 mg/dL 70-105 H CALCIUM (BEAKER) (test code = 697) 8.2 mg/dL 8.4-10.2 L EGFR (BEAKER) (test code = 1092) 96 mL/min/1.73 sq m ESTIMATED GFR IS NOT ACCURATE CREATININE CLEARANCE IN PREDICTING GLOMERULAR FILTRATION RATE. ESTIMATED GFR IS NOT APPLICABLE FOR DIALYSIS PATIENTS. Marketing Strategy Manager ID - NTPBLOOD GAS, [id number] 15:50:00* Test Item Value Reference Range Interpretation Comments PH ARTERIAL (BEAKER) (test code = 383) 7.35 7.35-7.45 PCO2 ARTERIAL (BEAKER) (test code = 384) 61 mmHg 35-45 H PO2 ARTERIAL (BEAKER) (test code = 385) 168 mmHg 80-90 H O2 SATURATION ARTERIAL (BEAKER) (test code = 386) 99.0 % 96.0 -97.0 H HCO3 ARTERIAL (BEAKER) (test code = 388) 33 mmol/L 21-29 H BASE EXCESS ARTERIAL (BEAKER) (test code = 387) 6.1 mmol/L -2.0-3 .0 H PATIENT TEMPERATURE (BEAKER) (test code = 1818) 37.0 C FIO2 (BEAKER) (test code = 1819) 50.0 % HEMODIALYSIS [id number] 15:21:00Ady Renteria, RN 01/28/2020 3:21 PMLab Results Component Value Date GLUCOSE 215 (H) 01/28/2020 CALCIUM 8.9 01/28/2020 NA 140 01/28/2020 K 4.0 01/28/2020 CO2 27 01/28/2020 CL 101 01/28/2020 BUN 101 (H) 01/28/2020 CREATININE 1.57 (H) 01/28/2020 Lab Results Component Value Date WBC 6.6 01/28/2020 HGB 7.4 (L) 01/28/2020 HCT 24.0 (L) 01/28/2020 MCV 98.0 (H) 01/28/2020 PLT 102 (L) 01/28/2020 HBSAg - Nonreactive 2019 - S/P Hemodialysis x 3 hours. - No fluid removal. - Treatment tolerated well. Asymptomatic through out procedure - CVC patent and intact. No S/Sx of infection noted. Dressing changed and labelled per policy. - Consent verified prior to initiation of treatment. - Report given [facility]A Morgan [facility] 2020-01-28 10:32:00* Test Item Value Reference Range Interpretation Comments PH ARTERIAL (BEAKER) (test code = 383) 7.41 7.35-7.45 PCO2 ARTERIAL (BEAKER) (test code = 384) 53 mmHg 35-45 H PO2 ARTERIAL (BEAKER) (test code = 385) 170 mmHg 80-90 H O2 SATURATION ARTERIAL (BEAKER) (test code = 386) 99.1 % 96.0 -97.0 H HCO3 ARTERIAL (BEAKER) (test code = 388) 33 mmol/L 21-29 H BASE EXCESS ARTERIAL (BEAKER) (test code = 387) 7.1 mmol/L -2.0-3 .0 H PATIENT TEMPERATURE (BEAKER) (test code = 1818) 37.0 C FIO2 (BEAKER) (test code = 1819) 50.0 % POCT-GLUCOSE [id number] 07:28:00* Test Item Value Reference Range Interpretation Comments POC-GLUCOSE METER (BEAKER) (test code = 1538) 216 mg/dL 70-110 H : TESTED AT [facility] [address] [facility] [place], [address]: Marketing Strategy Manager/Clinical Laboratory Technician ID = [id number] for DOUG ROJAS [id number] 07:16:00* Test Item Value Reference Range Interpretation Comments MAGNESIUM (BEAKER) (test code = 627) 1.8 mg/dL 1.6-2.6 Marketing Strategy Manager ID - LUISA LBASIC METABOLIC [id number] 07:16:00* Test Item Value Reference Range Interpretation Comments SODIUM (BEAKER) (test code = 381) 140 meq/L 136-145 POTASSIUM (BEAKER) (test code = 379) 4.0 meq/L 3.5-5.1 CHLORIDE (BEAKER) (test code = 382) 101 meq/L 98-107 CO2 (BEAKER) (test code = 355) 27 meq/L 22-29 BLOOD UREA NITROGEN (BEAKER) (test code = 354) 101 mg/dL 7-21 H CREATININE (BEAKER) (test code = 358) 1.57 mg/dL 0.57-1.25 H GLUCOSE RANDOM (BEAKER) (test code = 652) 215 mg/dL 70-105 H CALCIUM (BEAKER) (test code = 697) 8.9 mg/dL 8.4-10.2 EGFR (BEAKER) (test code = 1092) 46 mL/min/1.73 sq m ESTIMATED GFR IS NOT ACCURATE CREATININE CLEARANCE IN PREDICTING GLOMERULAR FILTRATION RATE. ESTIMATED GFR IS NOT APPLICABLE FOR DIALYSIS PATIENTS. Marketing Strategy Manager ID - LUISA LHEPATIC FUNCTION [id number] 07:16:00* Test Item Value Reference Range Interpretation Comments TOTAL PROTEIN (BEAKER) (test code = 770) 6.3 gm/dL 6.0-8.3 ALBUMIN (BEAKER) (test code = 1145) 3.0 g/dL 3.5-5.0 L BILIRUBIN TOTAL (BEAKER) (test code = 377) 1.2 mg/dL 0.2-1.2 BILIRUBIN DIRECT (BEAKER) (test code = 706) 0.9 mg/dL 0.1-0.5 H ALKALINE PHOSPHATASE (BEAKER) (test code = 346) 598 U/L 40-150 H AST (SGOT) (BEAKER) (test code = 353) 195 U/L 5-34 H ALT (SGPT) (BEAKER) (test code = 347) 662 U/L 6-55 H Marketing Strategy Manager ID - PIAYA LBLOOD GAS, [id number] 06:59:00* Test Item Value Reference Range Interpretation Comments PH ARTERIAL (BEAKER) (test code = 383) 7.39 7.35-7.45 PCO2 ARTERIAL (BEAKER) (test code = 384) 52 mmHg 35-45 H PO2 ARTERIAL (BEAKER) (test code = 385) 162 mmHg 80-90 H O2 SATURATION ARTERIAL (BEAKER) (test code = 386) 99.0 % 96.0 -97.0 H HCO3 ARTERIAL (BEAKER) (test code = 388) 31 mmol/L 21-29 H BASE EXCESS ARTERIAL (BEAKER) (test code = 387) 5.0 mmol/L -2.0-3 .0 H PATIENT TEMPERATURE (BEAKER) (test code = 1818) 37.0 C FIO2 (BEAKER) (test code = 1819) 50.0 % CBC W/PLT COUNT & AUTO [id number] 06:41:00* Test Item Value Reference Range Interpretation Comments WHITE BLOOD CELL COUNT (BEAKER) (test code = 775) 6.6 K/ L 3.5- 10.5 RED BLOOD CELL COUNT (BEAKER) (test code = 761) 2.45 M/ L 4.63-6 .08 L HEMOGLOBIN (BEAKER) (test code = 410) 7.4 GM/DL 13.7-17.5 L HEMATOCRIT (BEAKER) (test code = 411) 24.0 % 40.1-51.0 L MEAN CORPUSCULAR VOLUME (BEAKER) (test code = 753) 98.0 fL 79. 0-92.2 H MEAN CORPUSCULAR HEMOGLOBIN (BEAKER) (test code = 751) 30.2 pg 25.7-32.2 MEAN CORPUSCULAR HEMOGLOBIN CONC (BEAKER) (test code = 752) 30.8 GM/DL 32.3-36.5 L RED CELL DISTRIBUTION WIDTH (BEAKER) (test code = 412) 15.9 % 11.6-14.4 H PLATELET COUNT (BEAKER) (test code = 756) 102 K/CU MM 150-450 L MEAN PLATELET VOLUME (BEAKER) (test code = 754) 12.3 fL 9.4-12 .4 NUCLEATED RED BLOOD CELLS (BEAKER) (test code = 413) 0 /100 WBC 0 -0 NEUTROPHILS RELATIVE PERCENT (BEAKER) (test code = 429) 84 % LYMPHOCYTES RELATIVE PERCENT (BEAKER) (test code = 430) 4 % MONOCYTES RELATIVE PERCENT (BEAKER) (test code = 431) 7 % EOSINOPHILS RELATIVE PERCENT (BEAKER) (test code = 432) 2 % BASOPHILS RELATIVE PERCENT (BEAKER) (test code = 437) 0 % NEUTROPHILS ABSOLUTE COUNT (BEAKER) (test code = 670) 5.49 K/ L 1.78-5.38 H LYMPHOCYTES ABSOLUTE COUNT (BEAKER) (test code = 414) 0.27 K/ L 1.32-3.57 L MONOCYTES ABSOLUTE COUNT (BEAKER) (test code = 415) 0.43 K/ L 0. 30-0.82 EOSINOPHILS ABSOLUTE COUNT (BEAKER) (test code = 416) 0.16 K/ L 0.04-0.54 BASOPHILS ABSOLUTE COUNT (BEAKER) (test code = 417) 0.02 K/ L 0. 01-0.08 IMMATURE GRANULOCYTES-RELATIVE PERCENT (BEAKER) (test code = 2801) 3 % 0-1 H POCT-GLUCOSE [id number] 06:10:00* Test Item Value Reference Range Interpretation Comments POC-GLUCOSE METER (BEAKER) (test code = 1538) 217 mg/dL 70-110 H : TESTED AT [address], [address]: Marketing Strategy Manager/Clinical Laboratory Technician ID = [id number] for TRAVIS OSUNA POCT-GLUCOSE [id number] 00:00:00* Test Item Value Reference Range Interpretation Comments POC-GLUCOSE METER (BEAKER) (test code = 1538) 175 mg/dL 70-110 H : TESTED AT [place] [id number] [facility] [place], [address]: Marketing Strategy Manager/Clinical Laboratory Technician ID = [id number] for TRAVIS OSUNA BLOOD GAS, [id number] 23:07:00* Test Item Value Reference Range Interpretation Comments PH ARTERIAL (BEAKER) (test code = 383) 7.42 7.35-7.45 PCO2 ARTERIAL (BEAKER) (test code = 384) 47 mmHg 35-45 H PO2 ARTERIAL (BEAKER) (test code = 385) 111 mmHg 80-90 H O2 SATURATION ARTERIAL (BEAKER) (test code = 386) 98.1 % 96.0 -97.0 H HCO3 ARTERIAL (BEAKER) (test code = 388) 30 mmol/L 21-29 H BASE EXCESS ARTERIAL (BEAKER) (test code = 387) 4.8 mmol/L -2.0-3 .0 H PATIENT TEMPERATURE (BEAKER) (test code = 1818) 37.0 C FIO2 (BEAKER) (test code = 1819) 50.0 % RAD, ABDOMEN/KUB, 1 VIEW [id number] 21:29:00Reason for exam:->TF placement Should this be performed at the bedside?->YesFINAL REPORT TECHNIQUE: Supine views of the abdomen. INDICATION: TF placement. COMPARISON: 01/04/2020. FINDINGS/IMPRESSION: Enteric tube descends below the gastroesophageal junction terminating in the region of the gastric fundus similar to prior. A left IJ central venous catheter and tracheostomy cannula are partially seen. Bowel gas pattern is nonspecific. Supine technique limits the detection for free air. Partially imaged pulmonary parenchymal opacities are not significantly changed. Signed: Gi Colon MDReport Verified Date/Time: 01/27/2020 21:29:35 abdomen / KUB 1 [id number] 21:29:00Interface, External Ris In - 01/27/2020 9:31 PM CDTFINAL REPORT TECHNIQUE: Supine views of the abdomen. INDICATION: TF placement. COMPARISON: 01/04/2020. FINDINGS/IMPRESSION: Enteric tube descends below the gastroeso phageal junction terminating in the region of the gastric fundus similar to prio r. A left IJ central venous catheter and tracheostomy cannula are partially seen . Bowel gas pattern is nonspecific. Supine technique limits the detection for fr ee air. Partially imaged pulmonary parenchymal opacities are not significantly c hanged. Signed: Gi Colon MDReport Verified Date/Time: 01/27/2020 21:29:35 [facility] NON [id number] 21:09:00Reason for exam:->trach, ngt, and central line placement Should this be performed at the bedside?->YesFINAL REPORT RAD, CHEST, 1 VIEW, NON DEPT INDICATION: trach, ngt, and central line placement COMPARISON: Prior day's exam FINDINGS: Portable frontal view of the chest. IMPRESSION: Support Lines: Stable. Lungs and pleura: Unchanged airspace and pleural opacities. No pneumothorax.Heart and mediastinum: Stable contours. Additional findings: None. Signed: Lorenzo Molinaeport Verified Date/Time: 01/27/2020 21:09:47 D GAS, [id number] 18:26:00* Test Item Value Reference Range Interpretation Comments PH ARTERIAL (BEAKER) (test code = 383) 7.38 7.35-7.45 PCO2 ARTERIAL (BEAKER) (test code = 384) 50 mmHg 35-45 H PO2 ARTERIAL (BEAKER) (test code = 385) 157 mmHg 80-90 H O2 SATURATION ARTERIAL (BEAKER) (test code = 386) 99.0 % 96.0 -97.0 H HCO3 ARTERIAL (BEAKER) (test code = 388) 29 mmol/L 21-29 BASE EXCESS ARTERIAL (BEAKER) (test code = 387) 3.6 mmol/L -2.0-3 .0 H PATIENT TEMPERATURE (BEAKER) (test code = 1818) 37.0 C FIO2 (BEAKER) (test code = 1819) 40.0 % [id number] 17:52:00* Test Item Value Reference Range Interpretation Comments MAGNESIUM (BEAKER) (test code = 627) 1.9 mg/dL 1.6-2.6 Marketing Strategy Manager ID - NTPBASIC METABOLIC [id number] 17:52:00* Test Item Value Reference Range Interpretation Comments SODIUM (BEAKER) (test code = 381) 139 meq/L 136-145 POTASSIUM (BEAKER) (test code = 379) 4.0 meq/L 3.5-5.1 CHLORIDE (BEAKER) (test code = 382) 100 meq/L 98-107 CO2 (BEAKER) (test code = 355) 29 meq/L 22-29 BLOOD UREA NITROGEN (BEAKER) (test code = 354) 93 mg/dL 7-21 H CREATININE (BEAKER) (test code = 358) 1.48 mg/dL 0.57-1.25 H GLUCOSE RANDOM (BEAKER) (test code = 652) 277 mg/dL 70-105 H CALCIUM (BEAKER) (test code = 697) 8.5 mg/dL 8.4-10.2 EGFR (BEAKER) (test code = 1092) 49 mL/min/1.73 sq m ESTIMATED GFR IS NOT ACCURATE CREATININE CLEARANCE IN PREDICTING GLOMERULAR FILTRATION RATE. ESTIMATED GFR IS NOT APPLICABLE FOR DIALYSIS PATIENTS. Marketing Strategy Manager ID - NTPPOCT-GLUCOSE [id number] 13:47:00* Test Item Value Reference Range Interpretation Comments POC-GLUCOSE METER (BEAKER) (test code = 1538) 377 mg/dL 70-110 H : TESTED AT [facility] [address] [facility] [place], [address]: Marketing Strategy Manager/Clinical Laboratory Technician ID = [id number] for Jack Chapin (contract) BLOOD GAS, [id number] 09:34:00* Test Item Value Reference Range Interpretation Comments PH ARTERIAL (BEAKER) (test code = 383) 7.39 7.35-7.45 PCO2 ARTERIAL (BEAKER) (test code = 384) 50 mmHg 35-45 H PO2 ARTERIAL (BEAKER) (test code = 385) 193 mmHg 80-90 H O2 SATURATION ARTERIAL (BEAKER) (test code = 386) 99.3 % 96.0 -97.0 H HCO3 ARTERIAL (BEAKER) (test code = 388) 30 mmol/L 21-29 H BASE EXCESS ARTERIAL (BEAKER) (test code = 387) 4.0 mmol/L -2.0-3 .0 H PATIENT TEMPERATURE (BEAKER) (test code = 1818) 36.8 C FIO2 (BEAKER) (test code = 1819) 40.0 % BASIC METABOLIC [id number] 08:07:00* Test Item Value Reference Range Interpretation Comments SODIUM (BEAKER) (test code = 381) 137 meq/L 136-145 POTASSIUM (BEAKER) (test code = 379) 4.8 meq/L 3.5-5.1 CHLORIDE (BEAKER) (test code = 382) 99 meq/L 98-107 CO2 (BEAKER) (test code = 355) 29 meq/L 22-29 BLOOD UREA NITROGEN (BEAKER) (test code = 354) 91 mg/dL 7-21 H CREATININE (BEAKER) (test code = 358) 1.58 mg/dL 0.57-1.25 H GLUCOSE RANDOM (BEAKER) (test code = 652) 323 mg/dL 70-105 H CALCIUM (BEAKER) (test code = 697) 8.7 mg/dL 8.4-10.2 EGFR (BEAKER) (test code = 1092) 46 mL/min/1.73 sq m ESTIMATED GFR IS NOT ACCURATE CREATININE CLEARANCE IN PREDICTING GLOMERULAR FILTRATION RATE. ESTIMATED GFR IS NOT APPLICABLE FOR DIALYSIS PATIENTS. Marketing Strategy Manager ID - [id number] 07:32:00* Test Item Value Reference Range Interpretation Comments MAGNESIUM (BEAKER) (test code = 627) 2.0 mg/dL 1.6-2.6 Marketing Strategy Manager ID - NTPBASIC METABOLIC [id number] 07:32:00* Test Item Value Reference Range Interpretation Comments SODIUM (BEAKER) (test code = 381) 139 meq/L 136-145 POTASSIUM (BEAKER) (test code = 379) 4.2 meq/L 3.5-5.1 CHLORIDE (BEAKER) (test code = 382) 101 meq/L 98-107 CO2 (BEAKER) (test code = 355) 25 meq/L 22-29 BLOOD UREA NITROGEN (BEAKER) (test code = 354) 84 mg/dL 7-21 H CREATININE (BEAKER) (test code = 358) 1.54 mg/dL 0.57-1.25 H GLUCOSE RANDOM (BEAKER) (test code = 652) 265 mg/dL 70-105 H CALCIUM (BEAKER) (test code = 697) 8.8 mg/dL 8.4-10.2 EGFR (BEAKER) (test code = 1092) 47 mL/min/1.73 sq m ESTIMATED GFR IS NOT ACCURATE CREATININE CLEARANCE IN PREDICTING GLOMERULAR FILTRATION RATE. ESTIMATED GFR IS NOT APPLICABLE FOR DIALYSIS PATIENTS. Marketing Strategy Manager ID - NTPPOCT-GLUCOSE [id number] 07:21:00* Test Item Value Reference Range Interpretation Comments POC-GLUCOSE METER (BEAKER) (test code = 1538) 303 mg/dL 70-110 H : TESTED AT [facility] [address] [facility] [place], [address]: Marketing Strategy Manager/Clinical Laboratory Technician ID = [id number] for Slade Roberson CBC W/PLT COUNT & AUTO [id number] 06:40:00* Test Item Value Reference Range Interpretation Comments WHITE BLOOD CELL COUNT (BEAKER) (test code = 775) 8.7 K/ L 3.5- 10.5 RED BLOOD CELL COUNT (BEAKER) (test code = 761) 2.60 M/ L 4.63-6 .08 L HEMOGLOBIN (BEAKER) (test code = 410) 7.8 GM/DL 13.7-17.5 L HEMATOCRIT (BEAKER) (test code = 411) 25.9 % 40.1-51.0 L MEAN CORPUSCULAR VOLUME (BEAKER) (test code = 753) 99.6 fL 79. 0-92.2 H Discordant MCV results compared to previous results; clinical correlation required. MEAN CORPUSCULAR HEMOGLOBIN (BEAKER) (test code = 751) 30.0 pg 25.7-32.2 MEAN CORPUSCULAR HEMOGLOBIN CONC (BEAKER) (test code = 752) 30.1 GM/DL 32.3-36.5 L RED CELL DISTRIBUTION WIDTH (BEAKER) (test code = 412) 16.2 % 11.6-14.4 H PLATELET COUNT (BEAKER) (test code = 756) 140 K/CU MM 150-450 L MEAN PLATELET VOLUME (BEAKER) (test code = 754) 12.9 fL 9.4-12 .4 H NUCLEATED RED BLOOD CELLS (BEAKER) (test code = 413) 0 /100 WBC 0 -0 NEUTROPHILS RELATIVE PERCENT (BEAKER) (test code = 429) 72 % LYMPHOCYTES RELATIVE PERCENT (BEAKER) (test code = 430) 9 % MONOCYTES RELATIVE PERCENT (BEAKER) (test code = 431) 10 % EOSINOPHILS RELATIVE PERCENT (BEAKER) (test code = 432) 3 % BASOPHILS RELATIVE PERCENT (BEAKER) (test code = 437) 0 % NEUTROPHILS ABSOLUTE COUNT (BEAKER) (test code = 670) 6.28 K/ L 1.78-5.38 H LYMPHOCYTES ABSOLUTE COUNT (BEAKER) (test code = 414) 0.81 K/ L 1.32-3.57 L MONOCYTES ABSOLUTE COUNT (BEAKER) (test code = 415) 0.86 K/ L 0. 30-0.82 H EOSINOPHILS ABSOLUTE COUNT (BEAKER) (test code = 416) 0.28 K/ L 0.04-0.54 BASOPHILS ABSOLUTE COUNT (BEAKER) (test code = 417) 0.03 K/ L 0. 01-0.08 IMMATURE GRANULOCYTES-RELATIVE PERCENT (BEAKER) (test code = 2801) 5 % 0-1 H HEPATIC FUNCTION [id number] 06:01:00* Test Item Value Reference Range Interpretation Comments TOTAL PROTEIN (BEAKER) (test code = 770) 6.2 gm/dL 6.0-8.3 ALBUMIN (BEAKER) (test code = 1145) 3.0 g/dL 3.5-5.0 L BILIRUBIN TOTAL (BEAKER) (test code = 377) 0.8 mg/dL 0.2-1.2 BILIRUBIN DIRECT (BEAKER) (test code = 706) 0.6 mg/dL 0.1-0.5 H ALKALINE PHOSPHATASE (BEAKER) (test code = 346) 603 U/L 40-150 H AST (SGOT) (BEAKER) (test code = 353) 227 U/L 5-34 H ALT (SGPT) (BEAKER) (test code = 347) 754 U/L 6-55 H Marketing Strategy Manager ID - EDASIBLOOD GAS, [id number] 04:48:00* Test Item Value Reference Range Interpretation Comments PH ARTERIAL (BEAKER) (test code = 383) 7.33 7.35-7.45 L PCO2 ARTERIAL (BEAKER) (test code = 384) 58 mmHg 35-45 H PO2 ARTERIAL (BEAKER) (test code = 385) 190 mmHg 80-90 H O2 SATURATION ARTERIAL (BEAKER) (test code = 386) 99.2 % 96.0 -97.0 H HCO3 ARTERIAL (BEAKER) (test code = 388) 30 mmol/L 21-29 H BASE EXCESS ARTERIAL (BEAKER) (test code = 387) 3.1 mmol/L -2.0-3 .0 H PATIENT TEMPERATURE (BEAKER) (test code = 1818) 37.0 C FIO2 (BEAKER) (test code = 1819) 70.0 % POCT-GLUCOSE [id number] 01:24:00* Test Item Value Reference Range Interpretation Comments POC-GLUCOSE METER (BEAKER) (test code = 1538) 305 mg/dL 70-110 H : TESTED AT [facility] [address] [facility], [address]: Marketing Strategy Manager/Clinical Laboratory Technician ID = [id number] for Slade Roberson RAD, CHEST, 1 VIEW, NON [id number] 22:19:00Reason for exam:->high respiratory rateShould this be performed at the bedside?->YesFINAL REPORT RAD, CHEST, 1 VIEW, NON DEPT INDICATION: high respiratory rate COMPARISON: Exam from four hours prior FINDINGS: Portable frontal view of the chest. IMPRESSION: Support Lines: Support apparatus is stable. Lungs and pleura: Bilateral coarse parenchymal opacities are unchanged compared to previous. No new consolidation or pleural effusion. No discernible pneumot horax.Heart and mediastinum: Stable contours.Additional findings: None. Signed: Gi Colon MDReport Verified Date/Time: 01/26/2020 22:19:00 Electronic ally signed by: GI COLON MD on 01/26/2020 10:19 PM POCT-GLUCOSE METER 2020-01-26 20:59:00* Test Item Value Reference Range Interpretation Comments POC-GLUCOSE METER (BEAKER) (test code = 1538) 283 mg/dL 70-110 H : TESTED AT [facility] [address] [place] [address], [address]: Marketing Strategy Manager/Clinical Laboratory Technician ID = [id number] for Slade Roberson [id number] 17:08:00* Test Item Value Reference Range Interpretation Comments MAGNESIUM (BEAKER) (test code = 627) 1.9 mg/dL 1.6-2.6 Marketing Strategy Manager ID - NTPBASIC METABOLIC [id number] 17:08:00* Test Item Value Reference Range Interpretation Comments SODIUM (BEAKER) (test code = 381) 137 meq/L 136-145 POTASSIUM (BEAKER) (test code = 379) 4.6 meq/L 3.5-5.1 CHLORIDE (BEAKER) (test code = 382) 102 meq/L 98-107 CO2 (BEAKER) (test code = 355) 27 meq/L 22-29 BLOOD UREA NITROGEN (BEAKER) (test code = 354) 68 mg/dL 7-21 H CREATININE (BEAKER) (test code = 358) 1.30 mg/dL 0.57-1.25 H GLUCOSE RANDOM (BEAKER) (test code = 652) 266 mg/dL 70-105 H CALCIUM (BEAKER) (test code = 697) 8.7 mg/dL 8.4-10.2 EGFR (BEAKER) (test code = 1092) 57 mL/min/1.73 sq m ESTIMATED GFR IS NOT ACCURATE CREATININE CLEARANCE IN PREDICTING GLOMERULAR FILTRATION RATE. ESTIMATED GFR IS NOT APPLICABLE FOR DIALYSIS PATIENTS. Marketing Strategy Manager ID - NTPRAD, CHEST, 1 VIEW, NON [id number] 16:50:00Reason for exam:->acute hypoxiaShould this be performed at the bedside?->YesFINAL REPORT Chest dated 01/26/2020 COMPARISON: 01/25/2020 Clinical Information: acute hypoxia Comment: Heart is enlarged. Pulmonary vasculature is indistinct. Interstitial disease is seen bilaterally suggestive of vascular congestion, interstitial pulmonary edema, or pneumonia improved since prior study. No pleural effusion or pneumothorax is seen. Tracheostomy tube, left IJ central venous catheter, and a nasogastric tube remain in place. The tip of the left IJ central venous catheter is seen in the superior vena cava. Signed: Gi Shaver MDReport Verified Date/Time: 01/26/2020 16:50:29 Reading Location: [facility] C013 Consult Reading Room W/PLT COUNT & AUTO [id number] 16:40:00* Test Item Value Reference Range Interpretation Comments WHITE BLOOD CELL COUNT (BEAKER) (test code = 775) 10.5 K/ L 3.5- 10.5 RED BLOOD CELL COUNT (BEAKER) (test code = 761) 2.65 M/ L 4.63-6 .08 L HEMOGLOBIN (BEAKER) (test code = 410) 8.1 GM/DL 13.7-17.5 L HEMATOCRIT (BEAKER) (test code = 411) 25.2 % 40.1-51.0 L MEAN CORPUSCULAR VOLUME (BEAKER) (test code = 753) 95.1 fL 79. 0-92.2 H MEAN CORPUSCULAR HEMOGLOBIN (BEAKER) (test code = 751) 30.6 pg 25.7-32.2 MEAN CORPUSCULAR HEMOGLOBIN CONC (BEAKER) (test code = 752) 32.1 GM/DL 32.3-36.5 L RED CELL DISTRIBUTION WIDTH (BEAKER) (test code = 412) 16.2 % 11.6-14.4 H PLATELET COUNT (BEAKER) (test code = 756) 144 K/CU MM 150-450 L MEAN PLATELET VOLUME (BEAKER) (test code = 754) 12.6 fL 9.4-12 .4 H NUCLEATED RED BLOOD CELLS (BEAKER) (test code = 413) 0 /100 WBC 0 -0 NEUTROPHILS RELATIVE PERCENT (BEAKER) (test code = 429) 82 % LYMPHOCYTES RELATIVE PERCENT (BEAKER) (test code = 430) 6 % MONOCYTES RELATIVE PERCENT (BEAKER) (test code = 431) 7 % EOSINOPHILS RELATIVE PERCENT (BEAKER) (test code = 432) 1 % BASOPHILS RELATIVE PERCENT (BEAKER) (test code = 437) 0 % NEUTROPHILS ABSOLUTE COUNT (BEAKER) (test code = 670) 8.55 K/ L 1.78-5.38 H LYMPHOCYTES ABSOLUTE COUNT (BEAKER) (test code = 414) 0.62 K/ L 1.32-3.57 L MONOCYTES ABSOLUTE COUNT (BEAKER) (test code = 415) 0.70 K/ L 0. 30-0.82 EOSINOPHILS ABSOLUTE COUNT (BEAKER) (test code = 416) 0.08 K/ L 0.04-0.54 BASOPHILS ABSOLUTE COUNT (BEAKER) (test code = 417) 0.04 K/ L 0. 01-0.08 IMMATURE GRANULOCYTES-RELATIVE PERCENT (BEAKER) (test code = 2801) 5 % 0-1 H Calcium, [id number] 16:26:00* Test Item Value Reference Range Interpretation Comments Calcium, Ion (test code = 1993-) 1.13 mmol/L 1.12-1.27 pH, Blood (test code = 91204-6) 7.44 [facility] [id number] 16:26:00* Test Item Value Reference Range Interpretation Comments Glucose (test code = 2345-7) 262 mg/dL 70-110 H Lab Interpretation (test code = 01065-1) Abnormal [facility], [id number] 16:26:00* Test Item Value Reference Range Interpretation Comments PH ARTERIAL (BEAKER) (test code = 383) 7.44 7.35-7.45 PCO2 ARTERIAL (BEAKER) (test code = 384) 41 mmHg 35-45 PO2 ARTERIAL (BEAKER) (test code = 385) 117 mmHg 80-90 H O2 SATURATION ARTERIAL (BEAKER) (test code = 386) 98.4 % 96.0 -97.0 H HCO3 ARTERIAL (BEAKER) (test code = 388) 27 mmol/L 21-29 BASE EXCESS ARTERIAL (BEAKER) (test code = 387) 2.8 mmol/L -2.0-3 .0 PATIENT TEMPERATURE (BEAKER) (test code = 1818) 37.0 C FIO2 (BEAKER) (test code = 1819) 100.0 % GLUCOSE-STAT [id number] 16:26:00* Test Item Value Reference Range Interpretation Comments GLUCOSE RANDOM (BEAKER) (test code = 652) 262 mg/dL 70-110 H CALCIUM, [id number] 16:26:00* Test Item Value Reference Range Interpretation Comments CALCIUM IONIZED (BEAKER) (test code = 698) 1.13 mmol/L 1.12-1.27 PH, BLOOD (BEAKER) (test code = 1810) 7.44 BASIC METABOLIC [id number] 11:15:00* Test Item Value Reference Range Interpretation Comments SODIUM (BEAKER) (test code = 381) 136 meq/L 136-145 POTASSIUM (BEAKER) (test code = 379) 4.4 meq/L 3.5-5.1 CHLORIDE (BEAKER) (test code = 382) 102 meq/L 98-107 CO2 (BEAKER) (test code = 355) 27 meq/L 22-29 BLOOD UREA NITROGEN (BEAKER) (test code = 354) 60 mg/dL 7-21 H CREATININE (BEAKER) (test code = 358) 1.11 mg/dL 0.57-1.25 GLUCOSE RANDOM (BEAKER) (test code = 652) 116 mg/dL 70-105 H CALCIUM (BEAKER) (test code = 697) 8.7 mg/dL 8.4-10.2 EGFR (BEAKER) (test code = 1092) 69 mL/min/1.73 sq m ESTIMATED GFR IS NOT ACCURATE CREATININE CLEARANCE IN PREDICTING GLOMERULAR FILTRATION RATE. ESTIMATED GFR IS NOT APPLICABLE FOR DIALYSIS PATIENTS. Marketing Strategy Manager ID - NTPBLOOD GAS, [id number] 10:35:00* Test Item Value Reference Range Interpretation Comments PH ARTERIAL (BEAKER) (test code = 383) 7.42 7.35-7.45 PCO2 ARTERIAL (BEAKER) (test code = 384) 48 mmHg 35-45 H PO2 ARTERIAL (BEAKER) (test code = 385) 74 mmHg 80-90 L O2 SATURATION ARTERIAL (BEAKER) (test code = 386) 94.7 % 96.0 -97.0 L HCO3 ARTERIAL (BEAKER) (test code = 388) 30 mmol/L 21-29 H BASE EXCESS ARTERIAL (BEAKER) (test code = 387) 4.9 mmol/L -2.0-3 .0 H PATIENT TEMPERATURE (BEAKER) (test code = 1818) 37.5 C FIO2 (BEAKER) (test code = 1819) 40.0 % BASIC METABOLIC [id number] 06:42:00* Test Item Value Reference Range Interpretation Comments SODIUM (BEAKER) (test code = 381) 134 meq/L 136-145 L POTASSIUM (BEAKER) (test code = 379) 4.2 meq/L 3.5-5.1 CHLORIDE (BEAKER) (test code = 382) 101 meq/L 98-107 CO2 (BEAKER) (test code = 355) 26 meq/L 22-29 BLOOD UREA NITROGEN (BEAKER) (test code = 354) 53 mg/dL 7-21 H CREATININE (BEAKER) (test code = 358) 1.01 mg/dL 0.57-1.25 GLUCOSE RANDOM (BEAKER) (test code = 652) 102 mg/dL 70-105 CALCIUM (BEAKER) (test code = 697) 8.5 mg/dL 8.4-10.2 EGFR (BEAKER) (test code = 1092) 77 mL/min/1.73 sq m ESTIMATED GFR IS NOT ACCURATE CREATININE CLEARANCE IN PREDICTING GLOMERULAR FILTRATION RATE. ESTIMATED GFR IS NOT APPLICABLE FOR DIALYSIS PATIENTS. Marketing Strategy Manager ID - PIAYA LPOCT-GLUCOSE [id number] 06:05:00* Test Item Value Reference Range Interpretation Comments POC-GLUCOSE METER (BEAKER) (test code = 1538) 109 mg/dL 70-110 : TESTED AT [facility] [address] [facility], [address]: Marketing Strategy Manager/Clinical Laboratory Technician ID = [id number] for Slade Roberson HEPATIC FUNCTION [id number] 04:34:00* Test Item Value Reference Range Interpretation Comments TOTAL PROTEIN (BEAKER) (test code = 770) 5.8 gm/dL 6.0-8.3 L ALBUMIN (BEAKER) (test code = 1145) 2.8 g/dL 3.5-5.0 L BILIRUBIN TOTAL (BEAKER) (test code = 377) 1.1 mg/dL 0.2-1.2 BILIRUBIN DIRECT (BEAKER) (test code = 706) 0.7 mg/dL 0.1-0.5 H ALKALINE PHOSPHATASE (BEAKER) (test code = 346) 608 U/L 40-150 H AST (SGOT) (BEAKER) (test code = 353) 265 U/L 5-34 H ALT (SGPT) (BEAKER) (test code = 347) 658 U/L 6-55 H Marketing Strategy Manager ID - ALLISON MBLOOD GAS, [id number] 04:32:00* Test Item Value Reference Range Interpretation Comments PH ARTERIAL (BEAKER) (test code = 383) 7.45 7.35-7.45 PCO2 ARTERIAL (BEAKER) (test code = 384) 43 mmHg 35-45 PO2 ARTERIAL (BEAKER) (test code = 385) 122 mmHg 80-90 H O2 SATURATION ARTERIAL (BEAKER) (test code = 386) 98.5 % 96.0 -97.0 H HCO3 ARTERIAL (BEAKER) (test code = 388) 29 mmol/L 21-29 BASE EXCESS ARTERIAL (BEAKER) (test code = 387) 4.7 mmol/L -2.0-3 .0 H PATIENT TEMPERATURE (BEAKER) (test code = 1818) 37.0 C FIO2 (BEAKER) (test code = 1819) 40.0 % CBC W/PLT COUNT & AUTO [id number] 04:14:00* Test Item Value Reference Range Interpretation Comments WHITE BLOOD CELL COUNT (BEAKER) (test code = 775) 8.9 K/ L 3.5- 10.5 RED BLOOD CELL COUNT (BEAKER) (test code = 761) 2.40 M/ L 4.63-6 .08 L HEMOGLOBIN (BEAKER) (test code = 410) 7.3 GM/DL 13.7-17.5 L HEMATOCRIT (BEAKER) (test code = 411) 23.0 % 40.1-51.0 L MEAN CORPUSCULAR VOLUME (BEAKER) (test code = 753) 95.8 fL 79. 0-92.2 H MEAN CORPUSCULAR HEMOGLOBIN (BEAKER) (test code = 751) 30.4 pg 25.7-32.2 MEAN CORPUSCULAR HEMOGLOBIN CONC (BEAKER) (test code = 752) 31.7 GM/DL 32.3-36.5 L RED CELL DISTRIBUTION WIDTH (BEAKER) (test code = 412) 15.9 % 11.6-14.4 H PLATELET COUNT (BEAKER) (test code = 756) 93 K/CU MM 150-450 L MEAN PLATELET VOLUME (BEAKER) (test code = 754) 12.3 fL 9.4-12 .4 NUCLEATED RED BLOOD CELLS (BEAKER) (test code = 413) 0 /100 WBC 0 -0 NEUTROPHILS RELATIVE PERCENT (BEAKER) (test code = 429) 75 % LYMPHOCYTES RELATIVE PERCENT (BEAKER) (test code = 430) 9 % MONOCYTES RELATIVE PERCENT (BEAKER) (test code = 431) 10 % EOSINOPHILS RELATIVE PERCENT (BEAKER) (test code = 432) 3 % BASOPHILS RELATIVE PERCENT (BEAKER) (test code = 437) 0 % NEUTROPHILS ABSOLUTE COUNT (BEAKER) (test code = 670) 6.65 K/ L 1.78-5.38 H LYMPHOCYTES ABSOLUTE COUNT (BEAKER) (test code = 414) 0.76 K/ L 1.32-3.57 L MONOCYTES ABSOLUTE COUNT (BEAKER) (test code = 415) 0.86 K/ L 0. 30-0.82 H EOSINOPHILS ABSOLUTE COUNT (BEAKER) (test code = 416) 0.26 K/ L 0.04-0.54 BASOPHILS ABSOLUTE COUNT (BEAKER) (test code = 417) 0.03 K/ L 0. 01-0.08 IMMATURE GRANULOCYTES-RELATIVE PERCENT (BEAKER) (test code = 2801) 4 % 0-1 H POCT-GLUCOSE [id number] 00:32:00* Test Item Value Reference Range Interpretation Comments POC-GLUCOSE METER (BEAKER) (test code = 1538) 80 mg/dL 70-110 : TESTED AT [address], [address]: Marketing Strategy Manager/Clinical Laboratory Technician ID = [id number] for Karol Slade POCT-GLUCOSE [id number] 00:01:00* Test Item Value Reference Range Interpretation Comments POC-GLUCOSE METER (BEAKER) (test code = 1538) 41 mg/dL 70-110 L : TESTED AT [address], [address]: Marketing Strategy Manager/Clinical Laboratory Technician ID = [id number] for Slade Roberson BLOOD GAS, [id number] 18:29:00* Test Item Value Reference Range Interpretation Comments PH ARTERIAL (BEAKER) (test code = 383) 7.45 7.35-7.45 PCO2 ARTERIAL (BEAKER) (test code = 384) 40 mmHg 35-45 PO2 ARTERIAL (BEAKER) (test code = 385) 173 mmHg 80-90 H O2 SATURATION ARTERIAL (BEAKER) (test code = 386) 99.2 % 96.0 -97.0 H HCO3 ARTERIAL (BEAKER) (test code = 388) 27 mmol/L 21-29 BASE EXCESS ARTERIAL (BEAKER) (test code = 387) 3.4 mmol/L -2.0-3 .0 H PATIENT TEMPERATURE (BEAKER) (test code = 1818) 37.5 C FIO2 (BEAKER) (test code = 1819) 40.0 % POCT-GLUCOSE [id number] 18:06:00* Test Item Value Reference Range Interpretation Comments POC-GLUCOSE METER (BEAKER) (test code = 1538) 125 mg/dL 70-110 H : TESTED AT [address], [address]: Marketing Strategy Manager/Clinical Laboratory Technician ID = [id number] for LAURA BREWER BLOOD GAS, [id number] 14:30:00* Test Item Value Reference Range Interpretation Comments PH ARTERIAL (BEAKER) (test code = 383) 7.41 7.35-7.45 PCO2 ARTERIAL (BEAKER) (test code = 384) 47 mmHg 35-45 H PO2 ARTERIAL (BEAKER) (test code = 385) 125 mmHg 80-90 H O2 SATURATION ARTERIAL (BEAKER) (test code = 386) 98.5 % 96.0 -97.0 H HCO3 ARTERIAL (BEAKER) (test code = 388) 29 mmol/L 21-29 BASE EXCESS ARTERIAL (BEAKER) (test code = 387) 3.7 mmol/L -2.0-3 .0 H PATIENT TEMPERATURE (BEAKER) (test code = 1818) 37.0 C FIO2 (BEAKER) (test code = 1819) 40.0 % POCT-GLUCOSE [id number] 12:20:00* Test Item Value Reference Range Interpretation Comments POC-GLUCOSE METER (BEAKER) (test code = 1538) 103 mg/dL 70-110 : TESTED AT [facility] [address] [facility] [place], [address]: Marketing Strategy Manager/Clinical Laboratory Technician ID = [id number] for LAURA BREWER [id number] 12:19:00* Test Item Value Reference Range Interpretation Comments PHOSPHORUS (BEAKER) (test code = 604) 2.3 mg/dL 2.3-4.7 Marketing Strategy Manager ID - [id number] 12:19:00* Test Item Value Reference Range Interpretation Comments MAGNESIUM (BEAKER) (test code = 627) 1.8 mg/dL 1.6-2.6 Marketing Strategy Manager ID - AAHAMIDBASIC METABOLIC [id number] 12:19:00* Test Item Value Reference Range Interpretation Comments SODIUM (BEAKER) (test code = 381) 134 meq/L 136-145 L POTASSIUM (BEAKER) (test code = 379) 4.0 meq/L 3.5-5.1 CHLORIDE (BEAKER) (test code = 382) 102 meq/L 98-107 CO2 (BEAKER) (test code = 355) 29 meq/L 22-29 BLOOD UREA NITROGEN (BEAKER) (test code = 354) 30 mg/dL 7-21 H CREATININE (BEAKER) (test code = 358) 0.67 mg/dL 0.57-1.25 GLUCOSE RANDOM (BEAKER) (test code = 652) 92 mg/dL 70-105 CALCIUM (BEAKER) (test code = 697) 8.4 mg/dL 8.4-10.2 EGFR (BEAKER) (test code = 1092) 123 mL/min/1.73 sq m ESTIMATED GFR IS NOT ACCURATE CREATININE CLEARANCE IN PREDICTING GLOMERULAR FILTRATION RATE. ESTIMATED GFR IS NOT APPLICABLE FOR DIALYSIS PATIENTS. Marketing Strategy Manager ID - AAHAMIDCALCIUM, [id number] 12:04:00* Test Item Value Reference Range Interpretation Comments CALCIUM IONIZED (BEAKER) (test code = 698) 1.19 mmol/L 1.12-1.27 PH, BLOOD (BEAKER) (test code = 1810) 7.35 RAD, CHEST, 1 VIEW, NON [id number] 10:58:00Reason for exam:->Acute respiratory FailureShould this be performed at the bedside?->YesFINAL REPORT CLINICAL HISTORY: Acute respiratory Failure TECHNIQUE: 1 view of the chest. COMPARISON: 01/15/2020 IMPRESSION: The supporting lines and tubes are similar appearing. Diffuse bilateral airspace opacities have further increased. Pleural effusions cannot be excluded. The cardiomediastinal silhouette is magnified by technique. Signed: Damian Huang MDReport Verified D ate/Time: 01/25/2020 10:58:12 Reading Location: [facility] Radiology Reading Room -GLUCOSE [id number] 06:47:00* Test Item Value Reference Range Interpretation Comments POC-GLUCOSE METER (BEAKER) (test code = 1538) 87 mg/dL 70-110 : TESTED AT [facility] [address] [place] [address], [address]: Marketing Strategy Manager/Clinical Laboratory Technician ID = [id number] for [facility] (contract) [id number] 06:32:00* Test Item Value Reference Range Interpretation Comments MAGNESIUM (BEAKER) (test code = 627) 1.9 mg/dL 1.6-2.6 Marketing Strategy Manager ID - EDASIBASIC METABOLIC [id number] 06:32:00* Test Item Value Reference Range Interpretation Comments SODIUM (BEAKER) (test code = 381) 137 meq/L 136-145 POTASSIUM (BEAKER) (test code = 379) 4.3 meq/L 3.5-5.1 CHLORIDE (BEAKER) (test code = 382) 104 meq/L 98-107 CO2 (BEAKER) (test code = 355) 28 meq/L 22-29 BLOOD UREA NITROGEN (BEAKER) (test code = 354) 43 mg/dL 7-21 H CREATININE (BEAKER) (test code = 358) 0.72 mg/dL 0.57-1.25 GLUCOSE RANDOM (BEAKER) (test code = 652) 94 mg/dL 70-105 CALCIUM (BEAKER) (test code = 697) 8.3 mg/dL 8.4-10.2 L EGFR (BEAKER) (test code = 1092) 113 mL/min/1.73 sq m ESTIMATED GFR IS NOT ACCURATE CREATININE CLEARANCE IN PREDICTING GLOMERULAR FILTRATION RATE. ESTIMATED GFR IS NOT APPLICABLE FOR DIALYSIS PATIENTS. Marketing Strategy Manager ID - [id number] 06:22:00* Test Item Value Reference Range Interpretation Comments PHOSPHORUS (BEAKER) (test code = 604) 2.3 mg/dL 2.3-4.7 Marketing Strategy Manager ID - EDASICALCIUM, [id number] 05:35:00* Test Item Value Reference Range Interpretation Comments CALCIUM IONIZED (BEAKER) (test code = 698) 1.17 mmol/L 1.12-1.27 PH, BLOOD (BEAKER) (test code = 1810) 7.31 BLOOD GAS, [id number] 05:33:00* Test Item Value Reference Range Interpretation Comments PH ARTERIAL (BEAKER) (test code = 383) 7.31 7.35-7.45 L PCO2 ARTERIAL (BEAKER) (test code = 384) 65 mmHg 35-45 H PO2 ARTERIAL (BEAKER) (test code = 385) 128 mmHg 80-90 H O2 SATURATION ARTERIAL (BEAKER) (test code = 386) 98.2 % 96.0 -97.0 H HCO3 ARTERIAL (BEAKER) (test code = 388) 32 mmol/L 21-29 H BASE EXCESS ARTERIAL (BEAKER) (test code = 387) 4.6 mmol/L -2.0-3 .0 H PATIENT TEMPERATURE (BEAKER) (test code = 1818) 37.0 C FIO2 (BEAKER) (test code = 1819) 60.0 % [id number] 02:01:00* Test Item Value Reference Range Interpretation Comments PHOSPHORUS (BEAKER) (test code = 604) 2.8 mg/dL 2.3-4.7 Marketing Strategy Manager ID - [id number] 02:01:00* Test Item Value Reference Range Interpretation Comments MAGNESIUM (BEAKER) (test code = 627) 1.7 mg/dL 1.6-2.6 Marketing Strategy Manager ID - EDASIBASIC METABOLIC [id number] 02:01:00* Test Item Value Reference Range Interpretation Comments SODIUM (BEAKER) (test code = 381) 137 meq/L 136-145 POTASSIUM (BEAKER) (test code = 379) 4.4 meq/L 3.5-5.1 CHLORIDE (BEAKER) (test code = 382) 103 meq/L 98-107 CO2 (BEAKER) (test code = 355) 26 meq/L 22-29 BLOOD UREA NITROGEN (BEAKER) (test code = 354) 56 mg/dL 7-21 H CREATININE (BEAKER) (test code = 358) 0.83 mg/dL 0.57-1.25 GLUCOSE RANDOM (BEAKER) (test code = 652) 128 mg/dL 70-105 H CALCIUM (BEAKER) (test code = 697) 8.5 mg/dL 8.4-10.2 EGFR (BEAKER) (test code = 1092) 96 mL/min/1.73 sq m ESTIMATED GFR IS NOT ACCURATE CREATININE CLEARANCE IN PREDICTING GLOMERULAR FILTRATION RATE. ESTIMATED GFR IS NOT APPLICABLE FOR DIALYSIS PATIENTS. Marketing Strategy Manager ID - EDASIHEPATIC FUNCTION [id number] 02:01:00* Test Item Value Reference Range Interpretation Comments TOTAL PROTEIN (BEAKER) (test code = 770) 5.9 gm/dL 6.0-8.3 L ALBUMIN (BEAKER) (test code = 1145) 2.8 g/dL 3.5-5.0 L BILIRUBIN TOTAL (BEAKER) (test code = 377) 1.1 mg/dL 0.2-1.2 BILIRUBIN DIRECT (BEAKER) (test code = 706) 0.7 mg/dL 0.1-0.5 H ALKALINE PHOSPHATASE (BEAKER) (test code = 346) 610 U/L 40-150 H AST (SGOT) (BEAKER) (test code = 353) 250 U/L 5-34 H ALT (SGPT) (BEAKER) (test code = 347) 622 U/L 6-55 H Marketing Strategy Manager ID - EDASICBC W/PLT COUNT & AUTO [id number] 01:41:00* Test Item Value Reference Range Interpretation Comments WHITE BLOOD CELL COUNT (BEAKER) (test code = 775) 10.0 K/ L 3.5- 10.5 RED BLOOD CELL COUNT (BEAKER) (test code = 761) 2.47 M/ L 4.63-6 .08 L HEMOGLOBIN (BEAKER) (test code = 410) 7.6 GM/DL 13.7-17.5 L HEMATOCRIT (BEAKER) (test code = 411) 24.4 % 40.1-51.0 L MEAN CORPUSCULAR VOLUME (BEAKER) (test code = 753) 98.8 fL 79. 0-92.2 H MEAN CORPUSCULAR HEMOGLOBIN (BEAKER) (test code = 751) 30.8 pg 25.7-32.2 MEAN CORPUSCULAR HEMOGLOBIN CONC (BEAKER) (test code = 752) 31.1 GM/DL 32.3-36.5 L RED CELL DISTRIBUTION WIDTH (BEAKER) (test code = 412) 16.9 % 11.6-14.4 H PLATELET COUNT (BEAKER) (test code = 756) 114 K/CU MM 150-450 L MEAN PLATELET VOLUME (BEAKER) (test code = 754) 12.3 fL 9.4-12 .4 NUCLEATED RED BLOOD CELLS (BEAKER) (test code = 413) 0 /100 WBC 0 -0 NEUTROPHILS RELATIVE PERCENT (BEAKER) (test code = 429) 77 % LYMPHOCYTES RELATIVE PERCENT (BEAKER) (test code = 430) 5 % MONOCYTES RELATIVE PERCENT (BEAKER) (test code = 431) 11 % EOSINOPHILS RELATIVE PERCENT (BEAKER) (test code = 432) 2 % BASOPHILS RELATIVE PERCENT (BEAKER) (test code = 437) 0 % NEUTROPHILS ABSOLUTE COUNT (BEAKER) (test code = 670) 7.68 K/ L 1.78-5.38 H LYMPHOCYTES ABSOLUTE COUNT (BEAKER) (test code = 414) 0.52 K/ L 1.32-3.57 L MONOCYTES ABSOLUTE COUNT (BEAKER) (test code = 415) 1.11 K/ L 0. 30-0.82 H EOSINOPHILS ABSOLUTE COUNT (BEAKER) (test code = 416) 0.16 K/ L 0.04-0.54 BASOPHILS ABSOLUTE COUNT (BEAKER) (test code = 417) 0.03 K/ L 0. 01-0.08 IMMATURE GRANULOCYTES-RELATIVE PERCENT (BEAKER) (test code = 2801) 5 % 0-1 H CALCIUM, [id number] 01:29:00* Test Item Value Reference Range Interpretation Comments CALCIUM IONIZED (BEAKER) (test code = 698) 1.19 mmol/L 1.12-1.27 PH, BLOOD (BEAKER) (test code = 1810) 7.31 POCT-GLUCOSE [id number] 01:22:00* Test Item Value Reference Range Interpretation Comments POC-GLUCOSE METER (BEAKER) (test code = 1538) 131 mg/dL 70-110 H : TESTED AT [facility] [address] [place] [place], [address]: Marketing Strategy Manager/Clinical Laboratory Technician ID = [id number] for Zoraida Groves (contract) Prepare Leuko-Red [id number] 23:54:00* Test Item Value Reference Range Interpretation Comments CROSSMATCH (test code = 2264) COMPATIBLE Unit ABO (test code = 5220802) A Pos UNIT NUMBER (test code = 934-0) [id number] Status (test code = 8694292) TX_TIMEINCHART Blood Bank Product (test code = 2263) RED BLOOD CELLS PRODUCT CODE (test code = 933-2) [id number] [facility]* Test Item Value Reference Range Interpretation Comments PHOSPHORUS (BEAKER) (test code = 604) 3.3 mg/dL 2.3-4.7 Marketing Strategy Manager ID - [id number] 23:02:00* Test Item Value Reference Range Interpretation Comments MAGNESIUM (BEAKER) (test code = 627) 1.9 mg/dL 1.6-2.6 Marketing Strategy Manager ID - DBBASIC METABOLIC [id number] 23:02:00* Test Item Value Reference Range Interpretation Comments SODIUM (BEAKER) (test code = 381) 136 meq/L 136-145 POTASSIUM (BEAKER) (test code = 379) 5.0 meq/L 3.5-5.1 CHLORIDE (BEAKER) (test code = 382) 103 meq/L 98-107 CO2 (BEAKER) (test code = 355) 29 meq/L 22-29 BLOOD UREA NITROGEN (BEAKER) (test code = 354) 81 mg/dL 7-21 H CREATININE (BEAKER) (test code = 358) 1.20 mg/dL 0.57-1.25 GLUCOSE RANDOM (BEAKER) (test code = 652) 150 mg/dL 70-105 H CALCIUM (BEAKER) (test code = 697) 8.2 mg/dL 8.4-10.2 L EGFR (BEAKER) (test code = 1092) 63 mL/min/1.73 sq m ESTIMATED GFR IS NOT ACCURATE CREATININE CLEARANCE IN PREDICTING GLOMERULAR FILTRATION RATE. ESTIMATED GFR IS NOT APPLICABLE FOR DIALYSIS PATIENTS. Marketing Strategy Manager ID - DBCALCIUM, [id number] 22:25:00* Test Item Value Reference Range Interpretation Comments CALCIUM IONIZED (BEAKER) (test code = 698) 1.17 mmol/L 1.12-1.27 PH, BLOOD (BEAKER) (test code = 1810) 7.30 BLOOD GAS, [id number] 18:20:00* Test Item Value Reference Range Interpretation Comments PH ARTERIAL (BEAKER) (test code = 383) 7.34 7.35-7.45 L PCO2 ARTERIAL (BEAKER) (test code = 384) 55 mmHg 35-45 H PO2 ARTERIAL (BEAKER) (test code = 385) 73 mmHg 80-90 L O2 SATURATION ARTERIAL (BEAKER) (test code = 386) 93.6 % 96.0 -97.0 L HCO3 ARTERIAL (BEAKER) (test code = 388) 29 mmol/L 21-29 BASE EXCESS ARTERIAL (BEAKER) (test code = 387) 2.8 mmol/L -2.0-3 .0 PATIENT TEMPERATURE (BEAKER) (test code = 1818) 37.0 C FIO2 (BEAKER) (test code = 1819) 60.0 % POCT-GLUCOSE [id number] 17:52:00* Test Item Value Reference Range Interpretation Comments POC-GLUCOSE METER (BEAKER) (test code = 1538) 170 mg/dL 70-110 H : TESTED AT [address], [address]: Marketing Strategy Manager/Clinical Laboratory Technician ID = [id number] for LAURA BREWER [id number] 12:45:00* Test Item Value Reference Range Interpretation Comments MAGNESIUM (BEAKER) (test code = 627) 1.9 mg/dL 1.6-2.6 Specimen slightly hemolyzed Marketing Strategy Manager ID - [id number] 12:45:00* Test Item Value Reference Range Interpretation Comments PHOSPHORUS (BEAKER) (test code = 604) 3.7 mg/dL 2.3-4.7 Specimen slightly hemolyzed Marketing Strategy Manager ID - DBBLOOD GAS, [id number] 12:18:00* Test Item Value Reference Range Interpretation Comments PH ARTERIAL (BEAKER) (test code = 383) 7.35 7.35-7.45 PCO2 ARTERIAL (BEAKER) (test code = 384) 52 mmHg 35-45 H PO2 ARTERIAL (BEAKER) (test code = 385) 141 mmHg 80-90 H O2 SATURATION ARTERIAL (BEAKER) (test code = 386) 98.6 % 96.0 -97.0 H HCO3 ARTERIAL (BEAKER) (test code = 388) 28 mmol/L 21-29 BASE EXCESS ARTERIAL (BEAKER) (test code = 387) 1.9 mmol/L -2.0-3 .0 PATIENT TEMPERATURE (BEAKER) (test code = 1818) 37.0 C FIO2 (BEAKER) (test code = 1819) 60.0 % POCT-GLUCOSE [id number] 12:16:00* Test Item Value Reference Range Interpretation Comments POC-GLUCOSE METER (BEAKER) (test code = 1538) 198 mg/dL 70-110 H : TESTED AT [address], [address]: Marketing Strategy Manager/Clinical Laboratory Technician ID = [id number] for LAURA BREWER [id number] 09:38:00* Test Item Value Reference Range Interpretation Comments PHOSPHORUS (BEAKER) (test code = 604) 4.0 mg/dL 2.3-4.7 Marketing Strategy Manager ID - [id number] 09:38:00* Test Item Value Reference Range Interpretation Comments MAGNESIUM (BEAKER) (test code = 627) 1.8 mg/dL 1.6-2.6 Marketing Strategy Manager ID - EDASIBASIC METABOLIC [id number] 09:38:00* Test Item Value Reference Range Interpretation Comments SODIUM (BEAKER) (test code = 381) 137 meq/L 136-145 POTASSIUM (BEAKER) (test code = 379) 5.1 meq/L 3.5-5.1 CHLORIDE (BEAKER) (test code = 382) 103 meq/L 98-107 CO2 (BEAKER) (test code = 355) 28 meq/L 22-29 BLOOD UREA NITROGEN (BEAKER) (test code = 354) 71 mg/dL 7-21 H CREATININE (BEAKER) (test code = 358) 1.07 mg/dL 0.57-1.25 GLUCOSE RANDOM (BEAKER) (test code = 652) 128 mg/dL 70-105 H CALCIUM (BEAKER) (test code = 697) 8.5 mg/dL 8.4-10.2 EGFR (BEAKER) (test code = 1092) 72 mL/min/1.73 sq m ESTIMATED GFR IS NOT ACCURATE CREATININE CLEARANCE IN PREDICTING GLOMERULAR FILTRATION RATE. ESTIMATED GFR IS NOT APPLICABLE FOR DIALYSIS PATIENTS. Marketing Strategy Manager ID - EDASIBLOOD GAS, [id number] 08:57:00* Test Item Value Reference Range Interpretation Comments PH ARTERIAL (BEAKER) (test code = 383) 7.30 7.35-7.45 L PCO2 ARTERIAL (BEAKER) (test code = 384) 64 mmHg 35-45 H PO2 ARTERIAL (BEAKER) (test code = 385) 113 mmHg 80-90 H O2 SATURATION ARTERIAL (BEAKER) (test code = 386) 97.6 % 96.0 -97.0 H HCO3 ARTERIAL (BEAKER) (test code = 388) 31 mmol/L 21-29 H BASE EXCESS ARTERIAL (BEAKER) (test code = 387) 3.6 mmol/L -2.0-3 .0 H PATIENT TEMPERATURE (BEAKER) (test code = 1818) 37.0 C FIO2 (BEAKER) (test code = 1819) 50.0 % CBC W/PLT COUNT & AUTO [id number] 05:57:00* Test Item Value Reference Range Interpretation Comments WHITE BLOOD CELL COUNT (BEAKER) (test code = 775) 8.4 K/ L 3.5- 10.5 RED BLOOD CELL COUNT (BEAKER) (test code = 761) 2.52 M/ L 4.63-6 .08 L HEMOGLOBIN (BEAKER) (test code = 410) 7.7 GM/DL 13.7-17.5 L HEMATOCRIT (BEAKER) (test code = 411) 24.4 % 40.1-51.0 L MEAN CORPUSCULAR VOLUME (BEAKER) (test code = 753) 96.8 fL 79. 0-92.2 H MEAN CORPUSCULAR HEMOGLOBIN (BEAKER) (test code = 751) 30.6 pg 25.7-32.2 MEAN CORPUSCULAR HEMOGLOBIN CONC (BEAKER) (test code = 752) 31.6 GM/DL 32.3-36.5 L RED CELL DISTRIBUTION WIDTH (BEAKER) (test code = 412) 17.5 % 11.6-14.4 H PLATELET COUNT (BEAKER) (test code = 756) 107 K/CU MM 150-450 L MEAN PLATELET VOLUME (BEAKER) (test code = 754) 12.0 fL 9.4-12 .4 NUCLEATED RED BLOOD CELLS (BEAKER) (test code = 413) 0 /100 WBC 0 -0 NEUTROPHILS RELATIVE PERCENT (BEAKER) (test code = 429) 73 % LYMPHOCYTES RELATIVE PERCENT (BEAKER) (test code = 430) 8 % MONOCYTES RELATIVE PERCENT (BEAKER) (test code = 431) 10 % EOSINOPHILS RELATIVE PERCENT (BEAKER) (test code = 432) 3 % BASOPHILS RELATIVE PERCENT (BEAKER) (test code = 437) 1 % NEUTROPHILS ABSOLUTE COUNT (BEAKER) (test code = 670) 6.14 K/ L 1.78-5.38 H LYMPHOCYTES ABSOLUTE COUNT (BEAKER) (test code = 414) 0.69 K/ L 1.32-3.57 L MONOCYTES ABSOLUTE COUNT (BEAKER) (test code = 415) 0.87 K/ L 0. 30-0.82 H EOSINOPHILS ABSOLUTE COUNT (BEAKER) (test code = 416) 0.23 K/ L 0.04-0.54 BASOPHILS ABSOLUTE COUNT (BEAKER) (test code = 417) 0.05 K/ L 0. 01-0.08 IMMATURE GRANULOCYTES-RELATIVE PERCENT (BEAKER) (test code = 2801) 5 % 0-1 H BLOOD GAS, [id number] 05:53:00* Test Item Value Reference Range Interpretation Comments PH ARTERIAL (BEAKER) (test code = 383) 7.30 7.35-7.45 L PCO2 ARTERIAL (BEAKER) (test code = 384) 61 mmHg 35-45 H PO2 ARTERIAL (BEAKER) (test code = 385) 130 mmHg 80-90 H O2 SATURATION ARTERIAL (BEAKER) (test code = 386) 98.2 % 96.0 -97.0 H HCO3 ARTERIAL (BEAKER) (test code = 388) 30 mmol/L 21-29 H BASE EXCESS ARTERIAL (BEAKER) (test code = 387) 2.7 mmol/L -2.0-3 .0 PATIENT TEMPERATURE (BEAKER) (test code = 1818) 36.9 C FIO2 (BEAKER) (test code = 1819) 50.0 % [id number] 05:47:00* Test Item Value Reference Range Interpretation Comments PHOSPHORUS (BEAKER) (test code = 604) 3.4 mg/dL 2.3-4.7 Marketing Strategy Manager ID - [id number] 05:47:00* Test Item Value Reference Range Interpretation Comments MAGNESIUM (BEAKER) (test code = 627) 1.7 mg/dL 1.6-2.6 Marketing Strategy Manager ID - EDASIBASIC METABOLIC [id number] 05:47:00* Test Item Value Reference Range Interpretation Comments SODIUM (BEAKER) (test code = 381) 137 meq/L 136-145 POTASSIUM (BEAKER) (test code = 379) 4.4 meq/L 3.5-5.1 CHLORIDE (BEAKER) (test code = 382) 104 meq/L 98-107 CO2 (BEAKER) (test code = 355) 27 meq/L 22-29 BLOOD UREA NITROGEN (BEAKER) (test code = 354) 63 mg/dL 7-21 H CREATININE (BEAKER) (test code = 358) 0.93 mg/dL 0.57-1.25 GLUCOSE RANDOM (BEAKER) (test code = 652) 88 mg/dL 70-105 CALCIUM (BEAKER) (test code = 697) 8.2 mg/dL 8.4-10.2 L EGFR (BEAKER) (test code = 1092) 84 mL/min/1.73 sq m ESTIMATED GFR IS NOT ACCURATE CREATININE CLEARANCE IN PREDICTING GLOMERULAR FILTRATION RATE. ESTIMATED GFR IS NOT APPLICABLE FOR DIALYSIS PATIENTS. Marketing Strategy Manager ID - EDASIHEPATIC FUNCTION [id number] 05:47:00* Test Item Value Reference Range Interpretation Comments TOTAL PROTEIN (BEAKER) (test code = 770) 5.8 gm/dL 6.0-8.3 L ALBUMIN (BEAKER) (test code = 1145) 2.8 g/dL 3.5-5.0 L BILIRUBIN TOTAL (BEAKER) (test code = 377) 1.0 mg/dL 0.2-1.2 BILIRUBIN DIRECT (BEAKER) (test code = 706) 0.6 mg/dL 0.1-0.5 H ALKALINE PHOSPHATASE (BEAKER) (test code = 346) 576 U/L 40-150 H AST (SGOT) (BEAKER) (test code = 353) 239 U/L 5-34 H ALT (SGPT) (BEAKER) (test code = 347) 562 U/L 6-55 H Marketing Strategy Manager ID - [id number] 00:15:00* Test Item Value Reference Range Interpretation Comments PHOSPHORUS (BEAKER) (test code = 604) 3.1 mg/dL 2.3-4.7 Marketing Strategy Manager ID - [id number] 00:15:00* Test Item Value Reference Range Interpretation Comments MAGNESIUM (BEAKER) (test code = 627) 1.8 mg/dL 1.6-2.6 Marketing Strategy Manager ID - DBBASIC METABOLIC [id number] 00:15:00* Test Item Value Reference Range Interpretation Comments SODIUM (BEAKER) (test code = 381) 136 meq/L 136-145 POTASSIUM (BEAKER) (test code = 379) 4.3 meq/L 3.5-5.1 CHLORIDE (BEAKER) (test code = 382) 103 meq/L 98-107 CO2 (BEAKER) (test code = 355) 27 meq/L 22-29 BLOOD UREA NITROGEN (BEAKER) (test code = 354) 63 mg/dL 7-21 H CREATININE (BEAKER) (test code = 358) 0.95 mg/dL 0.57-1.25 GLUCOSE RANDOM (BEAKER) (test code = 652) 97 mg/dL 70-105 CALCIUM (BEAKER) (test code = 697) 8.3 mg/dL 8.4-10.2 L EGFR (BEAKER) (test code = 1092) 82 mL/min/1.73 sq m ESTIMATED GFR IS NOT ACCURATE CREATININE CLEARANCE IN PREDICTING GLOMERULAR FILTRATION RATE. ESTIMATED GFR IS NOT APPLICABLE FOR DIALYSIS PATIENTS. Marketing Strategy Manager ID - [id number] 21:03:00* Test Item Value Reference Range Interpretation Comments MAGNESIUM (BEAKER) (test code = 627) 1.9 mg/dL 1.6-2.6 Specimen slightly hemolyzed Marketing Strategy Manager ID - [id number] 21:03:00* Test Item Value Reference Range Interpretation Comments PHOSPHORUS (BEAKER) (test code = 604) 3.5 mg/dL 2.3-4.7 Specimen slightly hemolyzed Marketing Strategy Manager ID - NTPBASIC METABOLIC [id number] 21:03:00* Test Item Value Reference Range Interpretation Comments SODIUM (BEAKER) (test code = 381) 137 meq/L 136-145 POTASSIUM (BEAKER) (test code = 379) 4.9 meq/L 3.5-5.1 Specimen slightly hemolyzed CHLORIDE (BEAKER) (test code = 382) 103 meq/L 98-107 CO2 (BEAKER) (test code = 355) 26 meq/L 22-29 BLOOD UREA NITROGEN (BEAKER) (test code = 354) 78 mg/dL 7-21 H CREATININE (BEAKER) (test code = 358) 1.23 mg/dL 0.57-1.25 Specimen slightly hemolyzed GLUCOSE RANDOM (BEAKER) (test code = 652) 123 mg/dL 70-105 H CALCIUM (BEAKER) (test code = 697) 8.4 mg/dL 8.4-10.2 EGFR (BEAKER) (test code = 1092) 61 mL/min/1.73 sq m ESTIMATED GFR IS NOT ACCURATE CREATININE CLEARANCE IN PREDICTING GLOMERULAR FILTRATION RATE. ESTIMATED GFR IS NOT APPLICABLE FOR DIALYSIS PATIENTS. Marketing Strategy Manager ID - NTPPOCT-GLUCOSE [id number] 17:15:00* Test Item Value Reference Range Interpretation Comments POC-GLUCOSE METER (BEAKER) (test code = 1538) 162 mg/dL 70-110 H : TESTED AT [facility] [address] [facility] [place], [address]: Marketing Strategy Manager/Clinical Laboratory Technician ID = [id number] for MARCIE VELASQUEZ BLOOD GAS, [id number] 16:42:00* Test Item Value Reference Range Interpretation Comments PH ARTERIAL (BEAKER) (test code = 383) 7.35 7.35-7.45 PCO2 ARTERIAL (BEAKER) (test code = 384) 51 mmHg 35-45 H PO2 ARTERIAL (BEAKER) (test code = 385) 131 mmHg 80-90 H O2 SATURATION ARTERIAL (BEAKER) (test code = 386) 98.5 % 96.0 -97.0 H HCO3 ARTERIAL (BEAKER) (test code = 388) 28 mmol/L 21-29 BASE EXCESS ARTERIAL (BEAKER) (test code = 387) 1.7 mmol/L -2.0-3 .0 PATIENT TEMPERATURE (BEAKER) (test code = 1818) 36.5 C FIO2 (BEAKER) (test code = 1819) 50.0 % Hemoglobin and [id number] 16:19:00* Test Item Value Reference Range Interpretation Comments Hemoglobin (test code = 786-4) 7.9 13.7- 17.5 GM/DL L Hematocrit (test code = 4544-3) 25.1 % 40.1-51 L LOY (test code = LOY) Marketing Strategy Manager ID - [id number] Lab Interpretation (test code = 36290-3) [facility] [id number] 16:19:00* Test Item Value Reference Range Interpretation Comments HEMOGLOBIN (BEAKER) (test code = 410) 7.9 GM/DL 13.7-17.5 L HEMATOCRIT (BEAKER) (test code = 411) 25.1 % 40.1-51.0 L Marketing Strategy Manager ID - [id number] 14:51:00* Test Item Value Reference Range Interpretation Comments PHOSPHORUS (BEAKER) (test code = 604) 4.5 mg/dL 2.3-4.7 Marketing Strategy Manager ID - [id number] 14:51:00* Test Item Value Reference Range Interpretation Comments MAGNESIUM (BEAKER) (test code = 627) 2.0 mg/dL 1.6-2.6 Marketing Strategy Manager ID - NTPBASIC METABOLIC [id number] 14:51:00* Test Item Value Reference Range Interpretation Comments SODIUM (BEAKER) (test code = 381) 137 meq/L 136-145 POTASSIUM (BEAKER) (test code = 379) 5.7 meq/L 3.5-5.1 H CHLORIDE (BEAKER) (test code = 382) 103 meq/L 98-107 CO2 (BEAKER) (test code = 355) 26 meq/L 22-29 BLOOD UREA NITROGEN (BEAKER) (test code = 354) 87 mg/dL 7-21 H CREATININE (BEAKER) (test code = 358) 1.44 mg/dL 0.57-1.25 H GLUCOSE RANDOM (BEAKER) (test code = 652) 172 mg/dL 70-105 H CALCIUM (BEAKER) (test code = 697) 8.4 mg/dL 8.4-10.2 EGFR (BEAKER) (test code = 1092) 51 mL/min/1.73 sq m ESTIMATED GFR IS NOT ACCURATE CREATININE CLEARANCE IN PREDICTING GLOMERULAR FILTRATION RATE. ESTIMATED GFR IS NOT APPLICABLE FOR DIALYSIS PATIENTS. Marketing Strategy Manager ID - NTPPOCT-GLUCOSE [id number] 11:51:00* Test Item Value Reference Range Interpretation Comments POC-GLUCOSE METER (BEAKER) (test code = 1538) 135 mg/dL 70-110 H : TESTED AT [facility] [address] [facility] [place], [address]: Marketing Strategy Manager/Clinical Laboratory Technician ID = [id number] for ART PEREZ [id number] 10:38:00* Test Item Value Reference Range Interpretation Comments PHOSPHORUS (BEAKER) (test code = 604) 3.9 mg/dL 2.3-4.7 Marketing Strategy Manager ID - [id number] 10:38:00* Test Item Value Reference Range Interpretation Comments MAGNESIUM (BEAKER) (test code = 627) 1.9 mg/dL 1.6-2.6 Marketing Strategy Manager ID - NTPBASIC METABOLIC [id number] 10:38:00* Test Item Value Reference Range Interpretation Comments SODIUM (BEAKER) (test code = 381) 135 meq/L 136-145 L POTASSIUM (BEAKER) (test code = 379) 5.1 meq/L 3.5-5.1 CHLORIDE (BEAKER) (test code = 382) 103 meq/L 98-107 CO2 (BEAKER) (test code = 355) 24 meq/L 22-29 BLOOD UREA NITROGEN (BEAKER) (test code = 354) 83 mg/dL 7-21 H CREATININE (BEAKER) (test code = 358) 1.34 mg/dL 0.57-1.25 H GLUCOSE RANDOM (BEAKER) (test code = 652) 145 mg/dL 70-105 H CALCIUM (BEAKER) (test code = 697) 8.1 mg/dL 8.4-10.2 L EGFR (BEAKER) (test code = 1092) 55 mL/min/1.73 sq m ESTIMATED GFR IS NOT ACCURATE CREATININE CLEARANCE IN PREDICTING GLOMERULAR FILTRATION RATE. ESTIMATED GFR IS NOT APPLICABLE FOR DIALYSIS PATIENTS. Marketing Strategy Manager ID - NTPPOCT-GLUCOSE [id number] 05:40:00* Test Item Value Reference Range Interpretation Comments POC-GLUCOSE METER (BEAKER) (test code = 1538) 152 mg/dL 70-110 H : TESTED AT [facility] [address] [facility] [place], [address]: Marketing Strategy Manager/Clinical Laboratory Technician ID = [id number] for DAVION QUINONES POCT-GLUCOSE [id number] 05:16:00* Test Item Value Reference Range Interpretation Comments POC-GLUCOSE METER (BEAKER) (test code = 1538) 144 mg/dL 70-110 H : TESTED AT [facility] [address] [facility] [place], [address]: Marketing Strategy Manager/Clinical Laboratory Technician ID = [id number] for SAGAY, SYLVESTER POCT-GLUCOSE [id number] 05:13:00* Test Item Value Reference Range Interpretation Comments POC-GLUCOSE METER (BEAKER) (test code = 1538) 136 mg/dL 70-110 H : TESTED AT [address], [address]: Marketing Strategy Manager/Clinical Laboratory Technician ID = [id number] for SAGAY, SYLVESTER POCT-GLUCOSE [id number] 04:55:00* Test Item Value Reference Range Interpretation Comments POC-GLUCOSE METER (BEAKER) (test code = 1538) 110 mg/dL 70-110 : TESTED AT [address], [address]: Marketing Strategy Manager/Clinical Laboratory Technician ID = [id number] for FROILAN ALICIA Manual [id number] 04:49:00* Test Item Value Reference Range Interpretation Comments % Neutros (test code = 2816) 78 % % Lymphs (test code = 2817) 9 % % Monos (test code = 2818) 6 % % Eos (test code = 2819) 2 % % Metamyelo (test code = 2821) 1 % 0-0 H % Myelo (test code = 2822) 1 % 0-0 H % Bands (test code = 2826) 3 % 0-10 # Neutros (test code = 2830) 7.72 K/ul 1.78-5.38 H # Lymphs (test code = 2831) 0.89 K/ul 1.32-3.57 L # Monos (test code = 2832) 0.59 K/uL 0.3-0.82 # Eos (test code = 2834) 0.20 K/uL 0.04-0.54 # Metamyelo (test code = 2836) 0.10 K/uL 0-0 H # Myelo (test code = 2837) 0.10 K/uL 0-0 H # Bands (test code = 2840) 0.30 K/uL 0-0.8 Total Counted (test code = 1351) 100 nRBC (manual) (test code = 1353) 1 0- 0 /100 WBC H WBC Morphology (test code = 487) Normal Platelet Morphology (test code = 486) Normal Polychromasia (test code = 478) 1+ few Anisocytosis (test code = 961) 1+ few Poikilocytes (test code = 966) 1+ few Basophilic Stippling (test code = 473) Present Artifact (test code = 3432) Present Platelet Conc (test code = 3438) Decreased LYO (test code = LOY) Marketing Strategy Manager ID - Carmen Leon ser comments: Slide comments: Lab Interpretation (test code = 13470-5) Abnormal [facility] W/PLT COUNT & AUTO [id number] 04:49:00* Test Item Value Reference Range Interpretation Comments WHITE BLOOD CELL COUNT (BEAKER) (test code = 775) 9.9 K/ L 3.5- 10.5 RED BLOOD CELL COUNT (BEAKER) (test code = 761) 2.16 M/ L 4.63-6 .08 L HEMOGLOBIN (BEAKER) (test code = 410) 6.6 GM/DL 13.7-17.5 L HEMATOCRIT (BEAKER) (test code = 411) 21.5 % 40.1-51.0 L MEAN CORPUSCULAR VOLUME (BEAKER) (test code = 753) 99.5 fL 79. 0-92.2 H MEAN CORPUSCULAR HEMOGLOBIN (BEAKER) (test code = 751) 30.6 pg 25.7-32.2 MEAN CORPUSCULAR HEMOGLOBIN CONC (BEAKER) (test code = 752) 30.7 GM/DL 32.3-36.5 L RED CELL DISTRIBUTION WIDTH (BEAKER) (test code = 412) 16.1 % 11.6-14.4 H PLATELET COUNT (BEAKER) (test code = 756) 92 K/CU MM 150-450 L MEAN PLATELET VOLUME (BEAKER) (test code = 754) 12.2 fL 9.4-12 .4 NUCLEATED RED BLOOD CELLS (BEAKER) (test code = 413) 0 /100 WBC 0 -0 (CELLAVISION MANUAL DIFF)2020-01-23 04:49:00* Test Item Value Reference Range Interpretation Comments NEUTROPHILS - REL (CELLAVISION)(BEAKER) (test code = 2816) 78 % LYMPHOCYTES - REL (CELLAVISION)(BEAKER) (test code = 2817) 9 % MONOCYTES - REL (CELLAVISION)(BEAKER) (test code = 2818) 6 % EOSINOPHILS - REL (CELLAVISION)(BEAKER) (test code = 2819) 2 % METAMYELOCYTES - REL (CELLAVISION)(BEAKER) (test code = 2821) 1 % 0-0 H MYELOCYTES - REL (CELLAVISION)(BEAKER) (test code = 2822) 1 % 0-0 H BANDS - REL (CELLAVISION)(BEAKER) (test code = 2826) 3 % 0 -10 NEUTROPHILS - ABS (CELLAVISION)(BEAKER) (test code = 2830) 7.72 K/ul 1.78-5.38 H LYMPHOCYTES - ABS (CELLAVISION)(BEAKER) (test code = 2831) 0.89 K/ul 1.32-3.57 L MONOCYTES - ABS (CELLAVISION)(BEAKER) (test code = 2832) 0.59 K/uL 0.30-0.82 EOSINOPHILS - ABS (CELLAVISION)(BEAKER) (test code = 2834) 0.20 K/uL 0.04-0.54 METAMYELOCYTES - ABS (CELLAVISION)(BEAKER) (test code = 2836 ) 0.10 K/uL 0.00-0.00 H MYELOCYTES-ABS (CELLAVISION)(BEAKER) (test code = 2837) 0.10 K/uL 0.00-0.00 H BANDS - ABS (CELLAVISION)(BEAKER) (test code = 2840) 0.30 K/uL 0 .00-0.80 TOTAL COUNTED (BEAKER) (test code = 1351) 100 MANUAL NRBC PER 100 CELLS (BEAKER) (test code = 1353) 1 /100 WBC 0-0 H WBC MORPHOLOGY (BEAKER) (test code = 487) Normal PLT MORPHOLOGY (BEAKER) (test code = 486) Normal POLYCHROMATOPHILLIC RBCS(BEAKER) (test code = 478) 1+ few ANISOCYTOSIS (BEAKER) (test code = 961) 1+ few POIKILOCYTES (BEAKER) (test code = 966) 1+ few BASOPHILIC STIPPLING (BEAKER) (test code = 473) Present ARTIFACT (CELLAVISION)(BEAKER) (test code = 3432) Present PLATELET CONCENTRATION (CELLAVISION)(BEAKER) (test code = 3438) Dec reased Marketing Strategy Manager ID - Carmen OverholtUser comments: Slide comments: [id number] 04:20:00* Test Item Value Reference Range Interpretation Comments PHOSPHORUS (BEAKER) (test code = 604) 4.1 mg/dL 2.3-4.7 Marketing Strategy Manager ID - LUISA [id number] 04:20:00* Test Item Value Reference Range Interpretation Comments MAGNESIUM (BEAKER) (test code = 627) 2.0 mg/dL 1.6-2.6 Marketing Strategy Manager ID - LUISA LBASIC METABOLIC [id number] 04:20:00* Test Item Value Reference Range Interpretation Comments SODIUM (BEAKER) (test code = 381) 135 meq/L 136-145 L POTASSIUM (BEAKER) (test code = 379) 5.1 meq/L 3.5-5.1 CHLORIDE (BEAKER) (test code = 382) 103 meq/L 98-107 CO2 (BEAKER) (test code = 355) 26 meq/L 22-29 BLOOD UREA NITROGEN (BEAKER) (test code = 354) 76 mg/dL 7-21 H CREATININE (BEAKER) (test code = 358) 1.39 mg/dL 0.57-1.25 H GLUCOSE RANDOM (BEAKER) (test code = 652) 151 mg/dL 70-105 H CALCIUM (BEAKER) (test code = 697) 8.4 mg/dL 8.4-10.2 EGFR (BEAKER) (test code = 1092) 53 mL/min/1.73 sq m ESTIMATED GFR IS NOT ACCURATE CREATININE CLEARANCE IN PREDICTING GLOMERULAR FILTRATION RATE. ESTIMATED GFR IS NOT APPLICABLE FOR DIALYSIS PATIENTS. Marketing Strategy Manager ID - LUISA LHEPATIC FUNCTION [id number] 04:20:00* Test Item Value Reference Range Interpretation Comments TOTAL PROTEIN (BEAKER) (test code = 770) 5.9 gm/dL 6.0-8.3 L ALBUMIN (BEAKER) (test code = 1145) 2.9 g/dL 3.5-5.0 L BILIRUBIN TOTAL (BEAKER) (test code = 377) 0.9 mg/dL 0.2-1.2 BILIRUBIN DIRECT (BEAKER) (test code = 706) 0.7 mg/dL 0.1-0.5 H ALKALINE PHOSPHATASE (BEAKER) (test code = 346) 560 U/L 40-150 H AST (SGOT) (BEAKER) (test code = 353) 201 U/L 5-34 H ALT (SGPT) (BEAKER) (test code = 347) 489 U/L 6-55 H Marketing Strategy Manager ID - LUISA LBLOOD GAS, [id number] 03:49:00* Test Item Value Reference Range Interpretation Comments PH ARTERIAL (BEAKER) (test code = 383) 7.34 7.35-7.45 L PCO2 ARTERIAL (BEAKER) (test code = 384) 53 mmHg 35-45 H PO2 ARTERIAL (BEAKER) (test code = 385) 150 mmHg 80-90 H O2 SATURATION ARTERIAL (BEAKER) (test code = 386) 98.8 % 96.0 -97.0 H HCO3 ARTERIAL (BEAKER) (test code = 388) 28 mmol/L 21-29 BASE EXCESS ARTERIAL (BEAKER) (test code = 387) 1.8 mmol/L -2.0-3 .0 PATIENT TEMPERATURE (BEAKER) (test code = 1818) 37.0 C FIO2 (BEAKER) (test code = 1819) 50.0 % [id number] 23:25:00* Test Item Value Reference Range Interpretation Comments PHOSPHORUS (BEAKER) (test code = 604) 3.7 mg/dL 2.3-4.7 Marketing Strategy Manager ID - [id number] 23:25:00* Test Item Value Reference Range Interpretation Comments MAGNESIUM (BEAKER) (test code = 627) 1.9 mg/dL 1.6-2.6 Marketing Strategy Manager ID - DBBASIC METABOLIC [id number] 23:25:00* Test Item Value Reference Range Interpretation Comments SODIUM (BEAKER) (test code = 381) 134 meq/L 136-145 L POTASSIUM (BEAKER) (test code = 379) 5.0 meq/L 3.5-5.1 CHLORIDE (BEAKER) (test code = 382) 103 meq/L 98-107 CO2 (BEAKER) (test code = 355) 25 meq/L 22-29 BLOOD UREA NITROGEN (BEAKER) (test code = 354) 70 mg/dL 7-21 H CREATININE (BEAKER) (test code = 358) 1.28 mg/dL 0.57-1.25 H GLUCOSE RANDOM (BEAKER) (test code = 652) 123 mg/dL 70-105 H CALCIUM (BEAKER) (test code = 697) 8.2 mg/dL 8.4-10.2 L EGFR (BEAKER) (test code = 1092) 58 mL/min/1.73 sq m ESTIMATED GFR IS NOT ACCURATE CREATININE CLEARANCE IN PREDICTING GLOMERULAR FILTRATION RATE. ESTIMATED GFR IS NOT APPLICABLE FOR DIALYSIS PATIENTS. Marketing Strategy Manager ID - DBBASIC METABOLIC [id number] 16:41:00* Test Item Value Reference Range Interpretation Comments SODIUM (BEAKER) (test code = 381) 134 meq/L 136-145 L POTASSIUM (BEAKER) (test code = 379) 5.6 meq/L 3.5-5.1 H CHLORIDE (BEAKER) (test code = 382) 102 meq/L 98-107 CO2 (BEAKER) (test code = 355) 26 meq/L 22-29 BLOOD UREA NITROGEN (BEAKER) (test code = 354) 65 mg/dL 7-21 H CREATININE (BEAKER) (test code = 358) 1.30 mg/dL 0.57-1.25 H GLUCOSE RANDOM (BEAKER) (test code = 652) 227 mg/dL 70-105 H CALCIUM (BEAKER) (test code = 697) 8.7 mg/dL 8.4-10.2 EGFR (BEAKER) (test code = 1092) 57 mL/min/1.73 sq m ESTIMATED GFR IS NOT ACCURATE CREATININE CLEARANCE IN PREDICTING GLOMERULAR FILTRATION RATE. ESTIMATED GFR IS NOT APPLICABLE FOR DIALYSIS PATIENTS. Marketing Strategy Manager ID - NTPBLOOD GAS, [id number] 16:19:00* Test Item Value Reference Range Interpretation Comments PH ARTERIAL (BEAKER) (test code = 383) 7.35 7.35-7.45 PCO2 ARTERIAL (BEAKER) (test code = 384) 50 mmHg 35-45 H PO2 ARTERIAL (BEAKER) (test code = 385) 122 mmHg 80-90 H O2 SATURATION ARTERIAL (BEAKER) (test code = 386) 98.2 % 96.0 -97.0 H HCO3 ARTERIAL (BEAKER) (test code = 388) 27 mmol/L 21-29 BASE EXCESS ARTERIAL (BEAKER) (test code = 387) 0.6 mmol/L -2.0-3 .0 PATIENT TEMPERATURE (BEAKER) (test code = 1818) 37.1 C FIO2 (BEAKER) (test code = 1819) 50.0 % CBC W/PLT COUNT & AUTO [id number] 12:06:00* Test Item Value Reference Range Interpretation Comments WHITE BLOOD CELL COUNT (BEAKER) (test code = 775) 12.5 K/ L 3.5- 10.5 H RED BLOOD CELL COUNT (BEAKER) (test code = 761) 2.33 M/ L 4.63-6 .08 L HEMOGLOBIN (BEAKER) (test code = 410) 7.3 GM/DL 13.7-17.5 L HEMATOCRIT (BEAKER) (test code = 411) 23.2 % 40.1-51.0 L MEAN CORPUSCULAR VOLUME (BEAKER) (test code = 753) 99.6 fL 79. 0-92.2 H MEAN CORPUSCULAR HEMOGLOBIN (BEAKER) (test code = 751) 31.3 pg 25.7-32.2 MEAN CORPUSCULAR HEMOGLOBIN CONC (BEAKER) (test code = 752) 31.5 GM/DL 32.3-36.5 L RED CELL DISTRIBUTION WIDTH (BEAKER) (test code = 412) 16.3 % 11.6-14.4 H PLATELET COUNT (BEAKER) (test code = 756) 78 K/CU MM 150-450 L MEAN PLATELET VOLUME (BEAKER) (test code = 754) 13.0 fL 9.4-12 .4 H NUCLEATED RED BLOOD CELLS (BEAKER) (test code = 413) 1 /100 WBC 0 -0 H (CELLAVISION MANUAL DIFF)2020-01-22 12:06:00* Test Item Value Reference Range Interpretation Comments NEUTROPHILS - REL (CELLAVISION)(BEAKER) (test code = 2816) 71 % LYMPHOCYTES - REL (CELLAVISION)(BEAKER) (test code = 2817) 9 % MONOCYTES - REL (CELLAVISION)(BEAKER) (test code = 2818) 8 % EOSINOPHILS - REL (CELLAVISION)(BEAKER) (test code = 2819) 3 % BASOPHILS - REL (CELLAVISION)(BEAKER) (test code = 2820) 2 % METAMYELOCYTES - REL (CELLAVISION)(BEAKER) (test code = 2821) 1 % 0-0 H MYELOCYTES - REL (CELLAVISION)(BEAKER) (test code = 2822) 3 % 0-0 H BANDS - REL (CELLAVISION)(BEAKER) (test code = 2826) 2 % 0 -10 NEUTROPHILS - ABS (CELLAVISION)(BEAKER) (test code = 2830) 8.88 K/ul 1.78-5.38 H LYMPHOCYTES - ABS (CELLAVISION)(BEAKER) (test code = 2831) 1.13 K/ul 1.32-3.57 L MONOCYTES - ABS (CELLAVISION)(BEAKER) (test code = 2832) 1.00 K/uL 0.30-0.82 H EOSINOPHILS - ABS (CELLAVISION)(BEAKER) (test code = 2834) 0.38 K/uL 0.04-0.54 BASOPHILS - ABS (CELLAVISION)(BEAKER) (test code = 2835) 0.25 K/uL 0.01-0.08 H METAMYELOCYTES - ABS (CELLAVISION)(BEAKER) (test code = 2836 ) 0.13 K/uL 0.00-0.00 H MYELOCYTES-ABS (CELLAVISION)(BEAKER) (test code = 2837) 0.38 K/uL 0.00-0.00 H BANDS - ABS (CELLAVISION)(BEAKER) (test code = 2840) 0.25 K/uL 0 .00-0.80 TOTAL COUNTED (BEAKER) (test code = 1351) 100 WBC MORPHOLOGY (BEAKER) (test code = 487) Normal GIANT PLATELETS (BEAKER) (test code = 313) Present LARGE PLT(BEAKER) (test code = 2156) Present POLYCHROMATOPHILLIC RBCS(BEAKER) (test code = 478) 2+ moderate HYPOCHROMIA (BEAKER) (test code = 963) 1+ few ANISOCYTOSIS (BEAKER) (test code = 961) 2+ moderate MICROCYTES (BEAKER) (test code = 965) 1+ few MACROCYTES (BEAKER) (test code = 964) 2+ moderate POIKILOCYTES (BEAKER) (test code = 966) 1+ few OVALOCYTES (BEAKER) (test code = 477) 1+ few TEAR DROP CELLS (BEAKER) (test code = 481) 1+ few ARTIFACT (CELLAVISION)(BEAKER) (test code = 3432) Present PLATELET CONCENTRATION (CELLAVISION)(BEAKER) (test code = 3438) Dec reased Marketing Strategy Manager ID - Kun Schmitt comments: Slide comments: HEPATIC FUNCTION PANEL 2020-01-22 06:13:00* Test Item Value Reference Range Interpretation Comments TOTAL PROTEIN (BEAKER) (test code = 770) 6.0 gm/dL 6.0-8.3 ALBUMIN (BEAKER) (test code = 1145) 3.0 g/dL 3.5-5.0 L BILIRUBIN TOTAL (BEAKER) (test code = 377) 1.0 mg/dL 0.2-1.2 BILIRUBIN DIRECT (BEAKER) (test code = 706) 0.7 mg/dL 0.1-0.5 H ALKALINE PHOSPHATASE (BEAKER) (test code = 346) 516 U/L 40-150 H AST (SGOT) (BEAKER) (test code = 353) 196 U/L 5-34 H ALT (SGPT) (BEAKER) (test code = 347) 540 U/L 6-55 H Marketing Strategy Manager ID - ALLISON MBASIC METABOLIC [id number] 06:13:00* Test Item Value Reference Range Interpretation Comments SODIUM (BEAKER) (test code = 381) 136 meq/L 136-145 POTASSIUM (BEAKER) (test code = 379) 4.9 meq/L 3.5-5.1 CHLORIDE (BEAKER) (test code = 382) 104 meq/L 98-107 CO2 (BEAKER) (test code = 355) 26 meq/L 22-29 BLOOD UREA NITROGEN (BEAKER) (test code = 354) 50 mg/dL 7-21 H CREATININE (BEAKER) (test code = 358) 1.07 mg/dL 0.57-1.25 GLUCOSE RANDOM (BEAKER) (test code = 652) 150 mg/dL 70-105 H CALCIUM (BEAKER) (test code = 697) 8.8 mg/dL 8.4-10.2 EGFR (BEAKER) (test code = 1092) 72 mL/min/1.73 sq m ESTIMATED GFR IS NOT ACCURATE CREATININE CLEARANCE IN PREDICTING GLOMERULAR FILTRATION RATE. ESTIMATED GFR IS NOT APPLICABLE FOR DIALYSIS PATIENTS. Marketing Strategy Manager ID - ALLISON MBLOOD GAS, [id number] 05:41:00* Test Item Value Reference Range Interpretation Comments PH ARTERIAL (BEAKER) (test code = 383) 7.36 7.35-7.45 PCO2 ARTERIAL (BEAKER) (test code = 384) 52 mmHg 35-45 H PO2 ARTERIAL (BEAKER) (test code = 385) 66 mmHg 80-90 L O2 SATURATION ARTERIAL (BEAKER) (test code = 386) 92.0 % 96.0 -97.0 L HCO3 ARTERIAL (BEAKER) (test code = 388) 29 mmol/L 21-29 BASE EXCESS ARTERIAL (BEAKER) (test code = 387) 2.8 mmol/L -2.0-3 .0 PATIENT TEMPERATURE (BEAKER) (test code = 1818) 37.0 C FIO2 (BEAKER) (test code = 1819) 100.0 % CALCIUM, [id number] 03:26:00* Test Item Value Reference Range Interpretation Comments CALCIUM IONIZED (BEAKER) (test code = 698) 1.16 mmol/L 1.12-1.27 PH, BLOOD (BEAKER) (test code = 1810) 7.32 [id number] 02:51:00* Test Item Value Reference Range Interpretation Comments PHOSPHORUS (BEAKER) (test code = 604) 3.5 mg/dL 2.3-4.7 Marketing Strategy Manager ID - [id number] 02:51:00* Test Item Value Reference Range Interpretation Comments MAGNESIUM (BEAKER) (test code = 627) 1.9 mg/dL 1.6-2.6 Marketing Strategy Manager ID - DBBASIC METABOLIC [id number] 02:51:00* Test Item Value Reference Range Interpretation Comments SODIUM (BEAKER) (test code = 381) 135 meq/L 136-145 L POTASSIUM (BEAKER) (test code = 379) 4.8 meq/L 3.5-5.1 CHLORIDE (BEAKER) (test code = 382) 103 meq/L 98-107 CO2 (BEAKER) (test code = 355) 27 meq/L 22-29 BLOOD UREA NITROGEN (BEAKER) (test code = 354) 53 mg/dL 7-21 H CREATININE (BEAKER) (test code = 358) 1.12 mg/dL 0.57-1.25 GLUCOSE RANDOM (BEAKER) (test code = 652) 152 mg/dL 70-105 H CALCIUM (BEAKER) (test code = 697) 8.4 mg/dL 8.4-10.2 EGFR (BEAKER) (test code = 1092) 68 mL/min/1.73 sq m ESTIMATED GFR IS NOT ACCURATE CREATININE CLEARANCE IN PREDICTING GLOMERULAR FILTRATION RATE. ESTIMATED GFR IS NOT APPLICABLE FOR DIALYSIS PATIENTS. Marketing Strategy Manager ID - DBBLOOD GAS, [id number] 17:43:00* Test Item Value Reference Range Interpretation Comments PH ARTERIAL (BEAKER) (test code = 383) 7.40 7.35-7.45 PCO2 ARTERIAL (BEAKER) (test code = 384) 44 mmHg 35-45 PO2 ARTERIAL (BEAKER) (test code = 385) 125 mmHg 80-90 H O2 SATURATION ARTERIAL (BEAKER) (test code = 386) 98.5 % 96.0 -97.0 H HCO3 ARTERIAL (BEAKER) (test code = 388) 27 mmol/L 21-29 BASE EXCESS ARTERIAL (BEAKER) (test code = 387) 1.7 mmol/L -2.0-3 .0 PATIENT TEMPERATURE (BEAKER) (test code = 1818) 37.0 C FIO2 (BEAKER) (test code = 1819) 50.0 % POCT-GLUCOSE [id number] 17:36:00* Test Item Value Reference Range Interpretation Comments POC-GLUCOSE METER (BEAKER) (test code = 1538) 242 mg/dL 70-110 H : TESTED AT [facility] [address] [facility], [id number]: Marketing Strategy Manager/Clinical Laboratory Technician ID = [id number] for ART PEREZ U/S, ABDOMINAL, [id number] 14:20:00Abdomen limited area? Add comment if clarification is needed.->Right upper quadrantReason for exam:->Increasing liver enzymes, evaluate for cholecystitisShould this be performed at the bedside?-> YesFINAL REPORT TECHNIQUE: Grayscale ultrasound of the right abdomen. INDICATION: Increasing liver enzymes, evaluate for cholecystitis. COMPARISON: Ultrasound from 01/09/2020. FINDINGS: MIDLINE VASCULATURE: The visualized inferior vena cava is unremarkable. The maximum visualized aortic diameter is 2 cm. LIVER: Mildly increased liver echogenicity. Smooth liver contour. No focal lesions. The main portal vein is patent and measures 0.9 cm in diameter. BILIARY:Gallbladder: A stone in the gallbladder neck measures 1.8 cm. The gallbladder wall is mildly thickened. No gallbladder distention. The sonographic Ramírez sign was unable to be assessed due to the patient being ventilated.Common bile duct measures 0.4 cm, within normal limits. No intrahepatic biliary ductal dilatation. PANCREAS: Incompletely visualized due to overlying bowel gas. The partially visualized pancreatic neck and body are normal. PERITONEUM: No free fluid. RIGHT KIDNEY: Normal in size. No hydronephrosis. No sonographically evident solid mass lesion. IMPRESSION: 1.Cholelithiasis. The gallbladder appears similar to the prior examination. The mild gallbladder wall thickening is nonspecific and could be due to a systemic illness. While acute cholecystitis cannot be excluded, there are no definitive findings of acute cholecystitis. 2.Diffuse fatty infiltration of the liver. Signed: Harpreet Thompson MDReport Verified Date/Time: 01/21/2020 14:20:24 Reading Location: [address] Radiology Reading Room abdomen [id number] 14:20:00 Interface, External Ris In - 01/21/2020 2:22 PM CDTFINAL REPORT PATIENT ID: [id number] TECHNIQUE: Grayscale ultrasound of the right abdomen. INDICATION: Increa sing liver enzymes, evaluate for cholecystitis. COMPARISON: Ultrasound from 2019. FINDINGS: MIDLINE VASCULATURE: The visualized inferior vena cava is unrem arkable. The maximum visualized aortic diameter is 2 cm. LIVER: Mildly increased liver echogenicity. Smooth liver contour. No focal lesions. The main portal vei n is patent and measures 0.9 cm in diameter. BILIARY:Gallbladder: A stone in the gallbladder neck measures 1.8 cm. The gallbladder wall is mildly thickened. No gallbladder distention. The sonographic Ramírez sign was unable to be assessed du e to the patient being ventilated.Common bile duct measures 0.4 cm, within gauri l limits. No intrahepatic biliary ductal dilatation. PANCREAS: Incompletely visu alized due to overlying bowel gas. The partially visualized pancreatic neck and body are normal. PERITONEUM: No free fluid. RIGHT KIDNEY: Normal in size. No hyd ronephrosis. No sonographically evident solid mass lesion. IMPRESSION: 1.Cholel ithiasis. The gallbladder appears similar to the prior examination. The mild gal lbladder wall thickening is nonspecific and could be due to a systemic illness. While acute cholecystitis cannot be excluded, there are no definitive findings o f acute cholecystitis. 2.Diffuse fatty infiltration of the liver. Signed: Harpreet Thompsonort Verified Date/Time: 01/21/2020 14:20:24 Reading Location: [address] Radiology Reading [facility] 2020-01-21 13:27:00* Test Item Value Reference Range Interpretation Comments POC-GLUCOSE METER (BEAKER) (test code = 1538) 235 mg/dL 70-110 H : TESTED AT [address], [address]: Marketing Strategy Manager/Clinical Laboratory Technician ID = [id number] for JADYN SILVA Manual [id number] 07:36:00* Test Item Value Reference Range Interpretation Comments % Neutros (manual) (test code = 1359) 79 % % Lymphs (manual) (test code = 1360) 6 % % Monos (manual) (test code = 1361) 3 % % Eos (manual) (test code = 1362) 1 % % Baso (manual) (test code = 1363) 0 % % Metamyelo (manual) (test code = 258) 4 % 0-0 H % Myelo (manual) (test code = 1594) 6 % 0-0 H % Bands (manual) (test code = 1348) 1 % 0-10 # Neutros (manual) (test code = 1365) 9.64 1.80- 8.00 K/L H # Lymphs (manual) (test code = 1366) 0.73 1.48- 4.50 K/L L # Monos (manual) (test code = 1367) 0.37 0.00- 1.30 K/L # Eos (manual) (test code = 1368) 0.12 0.00- 0.50 K/L # Baso (manual) (test code = 1369) 0.00 0.00- 0.20 K/L # Metamyelo (manual) (test code = 261) 0.49 0.00- 0.00 K/ L H # Bands (manual) (test code = 1349) 0.1 0.0- 0.8 K/L # Myelo (manual) (test code = 1593) 0.73 0.00- 0.00 K/L H Total Counted (test code = 1351) 100 Bands plus Segmented Neutrophils (test code = 1352) 9.76 WBC Morphology (test code = 487) Normal Platelet Morphology (test code = 486) Normal Anisocytosis (test code = 961) 2+ moderate Polychromasia (test code = 478) 1+ few Lab Interpretation (test code = 11894-6) Abnormal [facility] W/PLT COUNT & AUTO [id number] 07:36:00* Test Item Value Reference Range Interpretation Comments WHITE BLOOD CELL COUNT (BEAKER) (test code = 775) 12.2 K/ L 3.5- 10.5 H RED BLOOD CELL COUNT (BEAKER) (test code = 761) 2.54 M/ L 4.63-6 .08 L HEMOGLOBIN (BEAKER) (test code = 410) 7.9 GM/DL 13.7-17.5 L HEMATOCRIT (BEAKER) (test code = 411) 24.7 % 40.1-51.0 L MEAN CORPUSCULAR VOLUME (BEAKER) (test code = 753) 97.2 fL 79. 0-92.2 H MEAN CORPUSCULAR HEMOGLOBIN (BEAKER) (test code = 751) 31.1 pg 25.7-32.2 MEAN CORPUSCULAR HEMOGLOBIN CONC (BEAKER) (test code = 752) 32.0 GM/DL 32.3-36.5 L RED CELL DISTRIBUTION WIDTH (BEAKER) (test code = 412) 16.4 % 11.6-14.4 H PLATELET COUNT (BEAKER) (test code = 756) 97 K/CU MM 150-450 L MEAN PLATELET VOLUME (BEAKER) (test code = 754) 12.2 fL 9.4-12 .4 NUCLEATED RED BLOOD CELLS (BEAKER) (test code = 413) 1 /100 WBC 0 -0 H (MANUAL DIFFERENTIAL)2020-01-21 07:36:00* Test Item Value Reference Range Interpretation Comments NEUTROPHILS - REL (DIFF) (BEAKER) (test code = 1359) 79 % LYMPHOCYTES - REL (DIFF) (BEAKER) (test code = 1360) 6 % MONOCYTES - REL (DIFF) (BEAKER) (test code = 1361) 3 % EOSINOPHILS - REL (DIFF) (BEAKER) (test code = 1362) 1 % BASOPHILS - REL (DIFF) (BEAKER) (test code = 1363) 0 % METAMYELOCYTES-REL (DIFF) (BEAKER) (test code = 258) 4 % 0 -0 H MYELOCYTES-REL (DIFF) (BEAKER) (test code = 1594) 6 % 0-0 H BANDS - REL (DIFF) (BEAKER) (test code = 1348) 1 % 0-10 NEUTROPHILS - ABS (DIFF) (BEAKER) (test code = 1365) 9.64 K/ L 1 .80-8.00 H LYMPHOCYTES - ABS (DIFF) (BEAKER) (test code = 1366) 0.73 K/ L 1 .48-4.50 L MONOCYTES - ABS (DIFF) (BEAKER) (test code = 1367) 0.37 K/ L 0.0 0-1.30 EOSINOPHILS - ABS (DIFF) (BEAKER) (test code = 1368) 0.12 K/ L 0 .00-0.50 BASOPHILS - ABS (DIFF) (BEAKER) (test code = 1369) 0.00 K/ L 0.0 0-0.20 METAMYELOCTYES - ABS (DIFF) (BEAKER) (test code = 261) 0.49 K/ L 0.00-0.00 H BANDS-ABS (DIFF) (BEAKER) (test code = 1349) 0.1 K/ L 0.0-0.8 MYELOCYTES-ABS (DIFF) (BEAKER) (test code = 1593) 0.73 K/ L 0.00 -0.00 H TOTAL COUNTED (BEAKER) (test code = 1351) 100 BANDS + SEGMENTED NEUTROPHILS (BEAKER) (test code = 1352) 9.76 WBC MORPHOLOGY (BEAKER) (test code = 487) Normal PLT MORPHOLOGY (BEAKER) (test code = 486) Normal ANISOCYTOSIS (BEAKER) (test code = 961) 2+ moderate POLYCHROMATOPHILLIC RBCS(BEAKER) (test code = 478) 1+ few POCT-GLUCOSE [id number] 06:14:00* Test Item Value Reference Range Interpretation Comments POC-GLUCOSE METER (BEAKER) (test code = 1538) 166 mg/dL 70-110 H : TESTED AT [address], [address]: Marketing Strategy Manager/Clinical Laboratory Technician ID = [id number] for DIANA NOGUERA CALCIUM, [id number] 05:44:00* Test Item Value Reference Range Interpretation Comments CALCIUM IONIZED (BEAKER) (test code = 698) 1.14 mmol/L 1.12-1.27 PH, BLOOD (BEAKER) (test code = 1810) 7.45 [id number] 04:30:00* Test Item Value Reference Range Interpretation Comments PHOSPHORUS (BEAKER) (test code = 604) 3.6 mg/dL 2.3-4.7 Marketing Strategy Manager ID - [id number] 04:30:00* Test Item Value Reference Range Interpretation Comments MAGNESIUM (BEAKER) (test code = 627) 1.8 mg/dL 1.6-2.6 Marketing Strategy Manager ID - EDASIBASIC METABOLIC [id number] 04:30:00* Test Item Value Reference Range Interpretation Comments SODIUM (BEAKER) (test code = 381) 137 meq/L 136-145 POTASSIUM (BEAKER) (test code = 379) 4.1 meq/L 3.5-5.1 CHLORIDE (BEAKER) (test code = 382) 103 meq/L 98-107 CO2 (BEAKER) (test code = 355) 27 meq/L 22-29 BLOOD UREA NITROGEN (BEAKER) (test code = 354) 42 mg/dL 7-21 H CREATININE (BEAKER) (test code = 358) 0.90 mg/dL 0.57-1.25 GLUCOSE RANDOM (BEAKER) (test code = 652) 171 mg/dL 70-105 H CALCIUM (BEAKER) (test code = 697) 8.6 mg/dL 8.4-10.2 EGFR (BEAKER) (test code = 1092) 88 mL/min/1.73 sq m ESTIMATED GFR IS NOT ACCURATE CREATININE CLEARANCE IN PREDICTING GLOMERULAR FILTRATION RATE. ESTIMATED GFR IS NOT APPLICABLE FOR DIALYSIS PATIENTS. Marketing Strategy Manager ID - EDASIHEPATIC FUNCTION [id number] 04:30:00* Test Item Value Reference Range Interpretation Comments TOTAL PROTEIN (BEAKER) (test code = 770) 6.2 gm/dL 6.0-8.3 ALBUMIN (BEAKER) (test code = 1145) 3.0 g/dL 3.5-5.0 L BILIRUBIN TOTAL (BEAKER) (test code = 377) 1.1 mg/dL 0.2-1.2 BILIRUBIN DIRECT (BEAKER) (test code = 706) 0.7 mg/dL 0.1-0.5 H ALKALINE PHOSPHATASE (BEAKER) (test code = 346) 529 U/L 40-150 H AST (SGOT) (BEAKER) (test code = 353) 213 U/L 5-34 H ALT (SGPT) (BEAKER) (test code = 347) 522 U/L 6-55 H Marketing Strategy Manager ID - EDASIBLOOD GAS, [id number] 04:11:00* Test Item Value Reference Range Interpretation Comments PH ARTERIAL (BEAKER) (test code = 383) 7.45 7.35-7.45 PCO2 ARTERIAL (BEAKER) (test code = 384) 41 mmHg 35-45 PO2 ARTERIAL (BEAKER) (test code = 385) 95 mmHg 80-90 H O2 SATURATION ARTERIAL (BEAKER) (test code = 386) 97.5 % 96.0 -97.0 H HCO3 ARTERIAL (BEAKER) (test code = 388) 28 mmol/L 21-29 BASE EXCESS ARTERIAL (BEAKER) (test code = 387) 3.6 mmol/L -2.0-3 .0 H PATIENT TEMPERATURE (BEAKER) (test code = 1818) 37.0 C FIO2 (BEAKER) (test code = 1819) 100.0 % [id number] 00:58:00* Test Item Value Reference Range Interpretation Comments PHOSPHORUS (BEAKER) (test code = 604) 2.5 mg/dL 2.3-4.7 Marketing Strategy Manager ID - ALLISON [id number] 00:58:00* Test Item Value Reference Range Interpretation Comments MAGNESIUM (BEAKER) (test code = 627) 2.1 mg/dL 1.6-2.6 Marketing Strategy Manager ID - ALLISON MBASIC METABOLIC [id number] 00:58:00* Test Item Value Reference Range Interpretation Comments SODIUM (BEAKER) (test code = 381) 135 meq/L 136-145 L POTASSIUM (BEAKER) (test code = 379) 4.2 meq/L 3.5-5.1 CHLORIDE (BEAKER) (test code = 382) 104 meq/L 98-107 CO2 (BEAKER) (test code = 355) 25 meq/L 22-29 BLOOD UREA NITROGEN (BEAKER) (test code = 354) 45 mg/dL 7-21 H CREATININE (BEAKER) (test code = 358) 0.97 mg/dL 0.57-1.25 GLUCOSE RANDOM (BEAKER) (test code = 652) 142 mg/dL 70-105 H CALCIUM (BEAKER) (test code = 697) 8.2 mg/dL 8.4-10.2 L EGFR (BEAKER) (test code = 1092) 80 mL/min/1.73 sq m ESTIMATED GFR IS NOT ACCURATE CREATININE CLEARANCE IN PREDICTING GLOMERULAR FILTRATION RATE. ESTIMATED GFR IS NOT APPLICABLE FOR DIALYSIS PATIENTS. Marketing Strategy Manager ID - ALLISON MCALCIUM, [id number] 00:32:00* Test Item Value Reference Range Interpretation Comments CALCIUM IONIZED (BEAKER) (test code = 698) 1.14 mmol/L 1.12-1.27 PH, BLOOD (BEAKER) (test code = 1810) 7.45 POCT-GLUCOSE [id number] 00:20:00* Test Item Value Reference Range Interpretation Comments POC-GLUCOSE METER (BEAKER) (test code = 1538) 143 mg/dL 70-110 H : TESTED AT [facility] [address] [place] [address], [address]: Marketing Strategy Manager/Clinical Laboratory Technician ID = [id number] for DIANA NOGUERA [id number] 22:22:00* Test Item Value Reference Range Interpretation Comments PHOSPHORUS (BEAKER) (test code = 604) 2.4 mg/dL 2.3-4.7 Marketing Strategy Manager ID - [id number] 22:22:00* Test Item Value Reference Range Interpretation Comments MAGNESIUM (BEAKER) (test code = 627) 1.8 mg/dL 1.6-2.6 Marketing Strategy Manager ID - DBBASIC METABOLIC [id number] 22:22:00* Test Item Value Reference Range Interpretation Comments SODIUM (BEAKER) (test code = 381) 137 meq/L 136-145 POTASSIUM (BEAKER) (test code = 379) 4.3 meq/L 3.5-5.1 CHLORIDE (BEAKER) (test code = 382) 106 meq/L 98-107 CO2 (BEAKER) (test code = 355) 25 meq/L 22-29 BLOOD UREA NITROGEN (BEAKER) (test code = 354) 51 mg/dL 7-21 H CREATININE (BEAKER) (test code = 358) 1.06 mg/dL 0.57-1.25 GLUCOSE RANDOM (BEAKER) (test code = 652) 130 mg/dL 70-105 H CALCIUM (BEAKER) (test code = 697) 8.0 mg/dL 8.4-10.2 L EGFR (BEAKER) (test code = 1092) 73 mL/min/1.73 sq m ESTIMATED GFR IS NOT ACCURATE CREATININE CLEARANCE IN PREDICTING GLOMERULAR FILTRATION RATE. ESTIMATED GFR IS NOT APPLICABLE FOR DIALYSIS PATIENTS. Marketing Strategy Manager ID - DBCALCIUM, [id number] 22:05:00* Test Item Value Reference Range Interpretation Comments CALCIUM IONIZED (BEAKER) (test code = 698) 1.12 mmol/L 1.12-1.27 PH, BLOOD (BEAKER) (test code = 1810) 7.47 POCT-GLUCOSE [id number] 17:39:00* Test Item Value Reference Range Interpretation Comments POC-GLUCOSE METER (BEAKER) (test code = 1538) 150 mg/dL 70-110 H : TESTED AT [facility] [address] [facility] [place], [id number]: Marketing Strategy Manager/Clinical Laboratory Technician ID = [id number] for JADYN SILVA BLOOD GAS, [id number] 17:32:00* Test Item Value Reference Range Interpretation Comments PH ARTERIAL (BEAKER) (test code = 383) 7.47 7.35-7.45 H PCO2 ARTERIAL (BEAKER) (test code = 384) 37 mmHg 35-45 PO2 ARTERIAL (BEAKER) (test code = 385) 99 mmHg 80-90 H O2 SATURATION ARTERIAL (BEAKER) (test code = 386) 97.7 % 96.0 -97.0 H HCO3 ARTERIAL (BEAKER) (test code = 388) 26 mmol/L 21-29 BASE EXCESS ARTERIAL (BEAKER) (test code = 387) 2.7 mmol/L -2.0-3 .0 PATIENT TEMPERATURE (BEAKER) (test code = 1818) 37.5 C FIO2 (BEAKER) (test code = 1819) 40.0 % POCT-GLUCOSE [id number] 13:18:00* Test Item Value Reference Range Interpretation Comments POC-GLUCOSE METER (BEAKER) (test code = 1538) 216 mg/dL 70-110 H : TESTED AT [address], [address]: Marketing Strategy Manager/Clinical Laboratory Technician ID = [id number] for JADYN SILVA CBC W/PLT COUNT & AUTO [id number] 10:11:00* Test Item Value Reference Range Interpretation Comments WHITE BLOOD CELL COUNT (BEAKER) (test code = 775) 11.8 K/ L 3.5- 10.5 H RED BLOOD CELL COUNT (BEAKER) (test code = 761) 2.57 M/ L 4.63-6 .08 L HEMOGLOBIN (BEAKER) (test code = 410) 7.9 GM/DL 13.7-17.5 L HEMATOCRIT (BEAKER) (test code = 411) 24.9 % 40.1-51.0 L MEAN CORPUSCULAR VOLUME (BEAKER) (test code = 753) 96.9 fL 79. 0-92.2 H MEAN CORPUSCULAR HEMOGLOBIN (BEAKER) (test code = 751) 30.7 pg 25.7-32.2 MEAN CORPUSCULAR HEMOGLOBIN CONC (BEAKER) (test code = 752) 31.7 GM/DL 32.3-36.5 L RED CELL DISTRIBUTION WIDTH (BEAKER) (test code = 412) 16.5 % 11.6-14.4 H PLATELET COUNT (BEAKER) (test code = 756) 106 K/CU MM 150-450 L MEAN PLATELET VOLUME (BEAKER) (test code = 754) 12.2 fL 9.4-12 .4 NUCLEATED RED BLOOD CELLS (BEAKER) (test code = 413) 0 /100 WBC 0 -0 (CELLAVISION MANUAL DIFF)[id number] 10:11:00* Test Item Value Reference Range Interpretation Comments NEUTROPHILS - REL (CELLAVISION)(BEAKER) (test code = 2816) 80 % LYMPHOCYTES - REL (CELLAVISION)(BEAKER) (test code = 2817) 4 % MONOCYTES - REL (CELLAVISION)(BEAKER) (test code = 2818) 7 % EOSINOPHILS - REL (CELLAVISION)(BEAKER) (test code = 2819) 3 % BASOPHILS - REL (CELLAVISION)(BEAKER) (test code = 2820) 1 % MYELOCYTES - REL (CELLAVISION)(BEAKER) (test code = 2822) 1 % 0-0 H BANDS - REL (CELLAVISION)(BEAKER) (test code = 2826) 4 % 0 -10 NEUTROPHILS - ABS (CELLAVISION)(BEAKER) (test code = 2830) 9.44 K/ul 1.78-5.38 H LYMPHOCYTES - ABS (CELLAVISION)(BEAKER) (test code = 2831) 0.47 K/ul 1.32-3.57 L MONOCYTES - ABS (CELLAVISION)(BEAKER) (test code = 2832) 0.83 K/uL 0.30-0.82 H EOSINOPHILS - ABS (CELLAVISION)(BEAKER) (test code = 2834) 0.35 K/uL 0.04-0.54 BASOPHILS - ABS (CELLAVISION)(BEAKER) (test code = 2835) 0.12 K/uL 0.01-0.08 H MYELOCYTES-ABS (CELLAVISION)(BEAKER) (test code = 2837) 0.12 K/uL 0.00-0.00 H BANDS - ABS (CELLAVISION)(BEAKER) (test code = 2840) 0.47 K/uL 0 .00-0.80 TOTAL COUNTED (BEAKER) (test code = 1351) 100 WBC MORPHOLOGY (BEAKER) (test code = 487) Normal PLT MORPHOLOGY (BEAKER) (test code = 486) Normal POLYCHROMATOPHILLIC RBCS(BEAKER) (test code = 478) 1+ few ANISOCYTOSIS (BEAKER) (test code = 961) 1+ few MICROCYTES (BEAKER) (test code = 965) 1+ few BASOPHILIC STIPPLING (BEAKER) (test code = 473) Present ARTIFACT (CELLAVISION)(BEAKER) (test code = 3432) Present PLATELET CONCENTRATION (CELLAVISION)(BEAKER) (test code = 3438) Dec reased Marketing Strategy Manager ID - Enid Payne comments: Slide comments: POCT-GLUCOSE METER 2020-01-20 06:11:00* Test Item Value Reference Range Interpretation Comments POC-GLUCOSE METER (BEAKER) (test code = 1538) 161 mg/dL 70-110 H : TESTED AT [address], [address]: Marketing Strategy Manager/Clinical Laboratory Technician ID = [id number] for JOSE LLAMAS [id number] 04:52:00* Test Item Value Reference Range Interpretation Comments PHOSPHORUS (BEAKER) (test code = 604) 3.2 mg/dL 2.3-4.7 Marketing Strategy Manager ID - [id number] 04:52:00* Test Item Value Reference Range Interpretation Comments MAGNESIUM (BEAKER) (test code = 627) 1.8 mg/dL 1.6-2.6 Marketing Strategy Manager ID - EDASIBASIC METABOLIC [id number] 04:52:00* Test Item Value Reference Range Interpretation Comments SODIUM (BEAKER) (test code = 381) 137 meq/L 136-145 POTASSIUM (BEAKER) (test code = 379) 4.5 meq/L 3.5-5.1 CHLORIDE (BEAKER) (test code = 382) 104 meq/L 98-107 CO2 (BEAKER) (test code = 355) 23 meq/L 22-29 BLOOD UREA NITROGEN (BEAKER) (test code = 354) 38 mg/dL 7-21 H CREATININE (BEAKER) (test code = 358) 0.85 mg/dL 0.57-1.25 GLUCOSE RANDOM (BEAKER) (test code = 652) 160 mg/dL 70-105 H CALCIUM (BEAKER) (test code = 697) 8.6 mg/dL 8.4-10.2 EGFR (BEAKER) (test code = 1092) 94 mL/min/1.73 sq m ESTIMATED GFR IS NOT ACCURATE CREATININE CLEARANCE IN PREDICTING GLOMERULAR FILTRATION RATE. ESTIMATED GFR IS NOT APPLICABLE FOR DIALYSIS PATIENTS. Marketing Strategy Manager ID - EDASIHEPATIC FUNCTION [id number] 04:52:00* Test Item Value Reference Range Interpretation Comments TOTAL PROTEIN (BEAKER) (test code = 770) 6.1 gm/dL 6.0-8.3 ALBUMIN (BEAKER) (test code = 1145) 2.9 g/dL 3.5-5.0 L BILIRUBIN TOTAL (BEAKER) (test code = 377) 1.0 mg/dL 0.2-1.2 BILIRUBIN DIRECT (BEAKER) (test code = 706) 0.7 mg/dL 0.1-0.5 H ALKALINE PHOSPHATASE (BEAKER) (test code = 346) 460 U/L 40-150 H AST (SGOT) (BEAKER) (test code = 353) 176 U/L 5-34 H ALT (SGPT) (BEAKER) (test code = 347) 476 U/L 6-55 H Marketing Strategy Manager ID - EDASICALCIUM, [id number] 04:45:00* Test Item Value Reference Range Interpretation Comments CALCIUM IONIZED (BEAKER) (test code = 698) 1.11 mmol/L 1.12-1.27 L PH, BLOOD (BEAKER) (test code = 1810) 7.38 BLOOD GAS, [id number] 04:42:00* Test Item Value Reference Range Interpretation Comments PH ARTERIAL (BEAKER) (test code = 383) 7.38 7.35-7.45 PCO2 ARTERIAL (BEAKER) (test code = 384) 49 mmHg 35-45 H PO2 ARTERIAL (BEAKER) (test code = 385) 83 mmHg 80-90 O2 SATURATION ARTERIAL (BEAKER) (test code = 386) 95.9 % 96.0 -97.0 L HCO3 ARTERIAL (BEAKER) (test code = 388) 28 mmol/L 21-29 BASE EXCESS ARTERIAL (BEAKER) (test code = 387) 2.6 mmol/L -2.0-3 .0 PATIENT TEMPERATURE (BEAKER) (test code = 1818) 37.0 C FIO2 (BEAKER) (test code = 1819) 40.0 % [id number] 00:27:00* Test Item Value Reference Range Interpretation Comments MAGNESIUM (BEAKER) (test code = 627) 1.9 mg/dL 1.6-2.6 Specimen slightly hemolyzed Marketing Strategy Manager ID - [id number] 00:27:00* Test Item Value Reference Range Interpretation Comments PHOSPHORUS (BEAKER) (test code = 604) 2.7 mg/dL 2.3-4.7 Specimen slightly hemolyzed Marketing Strategy Manager ID - ASBASIC METABOLIC [id number] 00:27:00* Test Item Value Reference Range Interpretation Comments SODIUM (BEAKER) (test code = 381) 134 meq/L 136-145 L POTASSIUM (BEAKER) (test code = 379) 4.6 meq/L 3.5-5.1 Specimen slightly hemolyzed CHLORIDE (BEAKER) (test code = 382) 104 meq/L 98-107 CO2 (BEAKER) (test code = 355) 24 meq/L 22-29 BLOOD UREA NITROGEN (BEAKER) (test code = 354) 43 mg/dL 7-21 H CREATININE (BEAKER) (test code = 358) 0.96 mg/dL 0.57-1.25 Specimen slightly hemolyzed GLUCOSE RANDOM (BEAKER) (test code = 652) 184 mg/dL 70-105 H CALCIUM (BEAKER) (test code = 697) 8.0 mg/dL 8.4-10.2 L EGFR (BEAKER) (test code = 1092) 81 mL/min/1.73 sq m ESTIMATED GFR IS NOT ACCURATE CREATININE CLEARANCE IN PREDICTING GLOMERULAR FILTRATION RATE. ESTIMATED GFR IS NOT APPLICABLE FOR DIALYSIS PATIENTS. Marketing Strategy Manager ID - ASCALCIUM, [id number] 00:18:00* Test Item Value Reference Range Interpretation Comments CALCIUM IONIZED (BEAKER) (test code = 698) 1.15 mmol/L 1.12-1.27 PH, BLOOD (BEAKER) (test code = 1810) 7.43 POCT-GLUCOSE [id number] 00:17:00* Test Item Value Reference Range Interpretation Comments POC-GLUCOSE METER (BEAKER) (test code = 1538) 167 mg/dL 70-110 H : TESTED AT [facility] [address] [facility], [address]: Marketing Strategy Manager/Clinical Laboratory Technician ID = [id number] for JOSE LLAMAS [id number] 21:31:00* Test Item Value Reference Range Interpretation Comments MAGNESIUM (BEAKER) (test code = 627) 1.9 mg/dL 1.6-2.6 Specimen slightly hemolyzed Marketing Strategy Manager ID - [id number] 21:31:00* Test Item Value Reference Range Interpretation Comments PHOSPHORUS (BEAKER) (test code = 604) 2.6 mg/dL 2.3-4.7 Specimen slightly hemolyzed Marketing Strategy Manager ID - ASBASIC METABOLIC [id number] 21:31:00* Test Item Value Reference Range Interpretation Comments SODIUM (BEAKER) (test code = 381) 134 meq/L 136-145 L POTASSIUM (BEAKER) (test code = 379) 4.9 meq/L 3.5-5.1 Specimen slightly hemolyzed CHLORIDE (BEAKER) (test code = 382) 103 meq/L 98-107 CO2 (BEAKER) (test code = 355) 24 meq/L 22-29 BLOOD UREA NITROGEN (BEAKER) (test code = 354) 47 mg/dL 7-21 H CREATININE (BEAKER) (test code = 358) 1.13 mg/dL 0.57-1.25 Specimen slightly hemolyzed GLUCOSE RANDOM (BEAKER) (test code = 652) 176 mg/dL 70-105 H CALCIUM (BEAKER) (test code = 697) 8.0 mg/dL 8.4-10.2 L EGFR (BEAKER) (test code = 1092) 67 mL/min/1.73 sq m ESTIMATED GFR IS NOT ACCURATE CREATININE CLEARANCE IN PREDICTING GLOMERULAR FILTRATION RATE. ESTIMATED GFR IS NOT APPLICABLE FOR DIALYSIS PATIENTS. Marketing Strategy Manager ID - ASCALCIUM, [id number] 20:48:00* Test Item Value Reference Range Interpretation Comments CALCIUM IONIZED (BEAKER) (test code = 698) 1.14 mmol/L 1.12-1.27 PH, BLOOD (BEAKER) (test code = 1810) 7.40 POCT-GLUCOSE [id number] 18:16:00* Test Item Value Reference Range Interpretation Comments POC-GLUCOSE METER (BEAKER) (test code = 1538) 203 mg/dL 70-110 H : TESTED AT [facility] [address] [facility] [place], [address]: Marketing Strategy Manager/Clinical Laboratory Technician ID = [id number] for JADYN SILVA BASIC METABOLIC [id number] 17:36:00* Test Item Value Reference Range Interpretation Comments SODIUM (BEAKER) (test code = 381) 134 meq/L 136-145 L POTASSIUM (BEAKER) (test code = 379) 4.7 meq/L 3.5-5.1 CHLORIDE (BEAKER) (test code = 382) 103 meq/L 98-107 CO2 (BEAKER) (test code = 355) 26 meq/L 22-29 BLOOD UREA NITROGEN (BEAKER) (test code = 354) 54 mg/dL 7-21 H CREATININE (BEAKER) (test code = 358) 1.23 mg/dL 0.57-1.25 GLUCOSE RANDOM (BEAKER) (test code = 652) 229 mg/dL 70-105 H CALCIUM (BEAKER) (test code = 697) 7.9 mg/dL 8.4-10.2 L EGFR (BEAKER) (test code = 1092) 61 mL/min/1.73 sq m ESTIMATED GFR IS NOT ACCURATE CREATININE CLEARANCE IN PREDICTING GLOMERULAR FILTRATION RATE. ESTIMATED GFR IS NOT APPLICABLE FOR DIALYSIS PATIENTS. Marketing Strategy Manager ID - RESHMA DAWSON GAS, [id number] 17:09:00* Test Item Value Reference Range Interpretation Comments PH ARTERIAL (BEAKER) (test code = 383) 7.45 7.35-7.45 PCO2 ARTERIAL (BEAKER) (test code = 384) 40 mmHg 35-45 PO2 ARTERIAL (BEAKER) (test code = 385) 144 mmHg 80-90 H O2 SATURATION ARTERIAL (BEAKER) (test code = 386) 98.9 % 96.0 -97.0 H HCO3 ARTERIAL (BEAKER) (test code = 388) 27 mmol/L 21-29 BASE EXCESS ARTERIAL (BEAKER) (test code = 387) 2.6 mmol/L -2.0-3 .0 PATIENT TEMPERATURE (BEAKER) (test code = 1818) 37.0 C FIO2 (BEAKER) (test code = 1819) 40.0 % STRONGYLOIDES ANTIBODY,[id number] 16:50:00* Test Item Value Reference Range Interpretation Comments STRONGYLOIDES IGG (test code = 50036-5) NEGATIVE RERERENCE RANGE: NEGATIVE Strongyloides stercoralis is a parasiticNematode found in tropical and subtropicalregions. Because of low larval densities infeces, stool examination is a relativelyinsensitive diagnostic test; antibody detectionoffers increased sensitivity. Patients withlatent infections who are immunosuppressed orreceiving immunosuppressive therapy are at riskof life-threatening hyperinfection. Significantcrossreactivity may be observed in otherhelminth infections. LOY (test code = LOY) Performing Lab *[facility] [address] [place] [address] H Christ David [facility] [id number] 12:24:00* Test Item Value Reference Range Interpretation Comments POC-GLUCOSE METER (BEAKER) (test code = 1538) 246 mg/dL 70-110 H : TESTED AT [facility] [address] [facility], [address]: Marketing Strategy Manager/Clinical Laboratory Technician ID = [id number] for JADYN SILVA BLOOD GAS, [id number] 09:47:00* Test Item Value Reference Range Interpretation Comments PH ARTERIAL (BEAKER) (test code = 383) 7.40 7.35-7.45 PCO2 ARTERIAL (BEAKER) (test code = 384) 44 mmHg 35-45 PO2 ARTERIAL (BEAKER) (test code = 385) 111 mmHg 80-90 H O2 SATURATION ARTERIAL (BEAKER) (test code = 386) 98.1 % 96.0 -97.0 H HCO3 ARTERIAL (BEAKER) (test code = 388) 26 mmol/L 21-29 BASE EXCESS ARTERIAL (BEAKER) (test code = 387) 1.2 mmol/L -2.0-3 .0 PATIENT TEMPERATURE (BEAKER) (test code = 1818) 36.5 C FIO2 (BEAKER) (test code = 1819) 40.0 % BASIC METABOLIC [id number] 08:32:00* Test Item Value Reference Range Interpretation Comments SODIUM (BEAKER) (test code = 381) 135 meq/L 136-145 L POTASSIUM (BEAKER) (test code = 379) 3.7 meq/L 3.5-5.1 CHLORIDE (BEAKER) (test code = 382) 105 meq/L 98-107 CO2 (BEAKER) (test code = 355) 24 meq/L 22-29 BLOOD UREA NITROGEN (BEAKER) (test code = 354) 39 mg/dL 7-21 H CREATININE (BEAKER) (test code = 358) 0.91 mg/dL 0.57-1.25 GLUCOSE RANDOM (BEAKER) (test code = 652) 209 mg/dL 70-105 H CALCIUM (BEAKER) (test code = 697) 7.9 mg/dL 8.4-10.2 L EGFR (BEAKER) (test code = 1092) 86 mL/min/1.73 sq m ESTIMATED GFR IS NOT ACCURATE CREATININE CLEARANCE IN PREDICTING GLOMERULAR FILTRATION RATE. ESTIMATED GFR IS NOT APPLICABLE FOR DIALYSIS PATIENTS. Marketing Strategy Manager ID - RESHMA [id number] 08:29:00* Test Item Value Reference Range Interpretation Comments PHOSPHORUS (BEAKER) (test code = 604) 3.1 mg/dL 2.3-4.7 Marketing Strategy Manager ID - RESHMA [id number] 08:29:00* Test Item Value Reference Range Interpretation Comments MAGNESIUM (BEAKER) (test code = 627) 1.8 mg/dL 1.6-2.6 Marketing Strategy Manager ID - RESHMA CCALCIUM, [id number] 07:58:00* Test Item Value Reference Range Interpretation Comments CALCIUM IONIZED (BEAKER) (test code = 698) 1.12 mmol/L 1.12-1.27 PH, BLOOD (BEAKER) (test code = 1810) 7.37 BLOOD [id number] 07:00:00* Test Item Value Reference Range Interpretation Comments CULTURE (BEAKER) (test code = 1095) No growth in 5 days BLOOD [id number] 07:00:00* Test Item Value Reference Range Interpretation Comments CULTURE (BEAKER) (test code = 1095) No growth in 5 days POCT-GLUCOSE [id number] 05:18:00* Test Item Value Reference Range Interpretation Comments POC-GLUCOSE METER (BEAKER) (test code = 1538) 219 mg/dL 70-110 H : TESTED AT [facility] [address] [place] [address], [address]: Marketing Strategy Manager/Clinical Laboratory Technician ID = [id number] for DIANA NOGUERA CBC W/PLT COUNT & AUTO [id number] 04:20:00* Test Item Value Reference Range Interpretation Comments WHITE BLOOD CELL COUNT (BEAKER) (test code = 775) 9.2 K/ L 3.5- 10.5 RED BLOOD CELL COUNT (BEAKER) (test code = 761) 2.48 M/ L 4.63-6 .08 L HEMOGLOBIN (BEAKER) (test code = 410) 7.7 GM/DL 13.7-17.5 L HEMATOCRIT (BEAKER) (test code = 411) 24.1 % 40.1-51.0 L MEAN CORPUSCULAR VOLUME (BEAKER) (test code = 753) 97.2 fL 79. 0-92.2 H MEAN CORPUSCULAR HEMOGLOBIN (BEAKER) (test code = 751) 31.0 pg 25.7-32.2 MEAN CORPUSCULAR HEMOGLOBIN CONC (BEAKER) (test code = 752) 32.0 GM/DL 32.3-36.5 L RED CELL DISTRIBUTION WIDTH (BEAKER) (test code = 412) 16.2 % 11.6-14.4 H PLATELET COUNT (BEAKER) (test code = 756) 98 K/CU MM 150-450 L MEAN PLATELET VOLUME (BEAKER) (test code = 754) 11.7 fL 9.4-12 .4 NUCLEATED RED BLOOD CELLS (BEAKER) (test code = 413) 0 /100 WBC 0 -0 NEUTROPHILS RELATIVE PERCENT (BEAKER) (test code = 429) 73 % LYMPHOCYTES RELATIVE PERCENT (BEAKER) (test code = 430) 10 % MONOCYTES RELATIVE PERCENT (BEAKER) (test code = 431) 11 % EOSINOPHILS RELATIVE PERCENT (BEAKER) (test code = 432) 1 % BASOPHILS RELATIVE PERCENT (BEAKER) (test code = 437) 0 % NEUTROPHILS ABSOLUTE COUNT (BEAKER) (test code = 670) 6.67 K/ L 1.78-5.38 H LYMPHOCYTES ABSOLUTE COUNT (BEAKER) (test code = 414) 0.87 K/ L 1.32-3.57 L MONOCYTES ABSOLUTE COUNT (BEAKER) (test code = 415) 0.98 K/ L 0. 30-0.82 H EOSINOPHILS ABSOLUTE COUNT (BEAKER) (test code = 416) 0.12 K/ L 0.04-0.54 BASOPHILS ABSOLUTE COUNT (BEAKER) (test code = 417) 0.04 K/ L 0. 01-0.08 IMMATURE GRANULOCYTES-RELATIVE PERCENT (BEAKER) (test code = 2801) 5 % 0-1 H BASIC METABOLIC [id number] 04:17:00* Test Item Value Reference Range Interpretation Comments SODIUM (BEAKER) (test code = 381) 136 meq/L 136-145 POTASSIUM (BEAKER) (test code = 379) 4.1 meq/L 3.5-5.1 CHLORIDE (BEAKER) (test code = 382) 106 meq/L 98-107 CO2 (BEAKER) (test code = 355) 24 meq/L 22-29 BLOOD UREA NITROGEN (BEAKER) (test code = 354) 42 mg/dL 7-21 H CREATININE (BEAKER) (test code = 358) 1.06 mg/dL 0.57-1.25 GLUCOSE RANDOM (BEAKER) (test code = 652) 221 mg/dL 70-105 H CALCIUM (BEAKER) (test code = 697) 7.8 mg/dL 8.4-10.2 L EGFR (BEAKER) (test code = 1092) 73 mL/min/1.73 sq m ESTIMATED GFR IS NOT ACCURATE CREATININE CLEARANCE IN PREDICTING GLOMERULAR FILTRATION RATE. ESTIMATED GFR IS NOT APPLICABLE FOR DIALYSIS PATIENTS. Marketing Strategy Manager ID - ALLISON MCALCIUM, [id number] 04:13:00* Test Item Value Reference Range Interpretation Comments CALCIUM IONIZED (BEAKER) (test code = 698) 1.10 mmol/L 1.12-1.27 L PH, BLOOD (BEAKER) (test code = 1810) 7.39 [id number] 04:10:00* Test Item Value Reference Range Interpretation Comments PHOSPHORUS (BEAKER) (test code = 604) 2.9 mg/dL 2.3-4.7 Marketing Strategy Manager ID - ALLISON [id number] 04:10:00* Test Item Value Reference Range Interpretation Comments MAGNESIUM (BEAKER) (test code = 627) 2.0 mg/dL 1.6-2.6 Marketing Strategy Manager ID - ALLISON MHEPATIC FUNCTION [id number] 04:10:00* Test Item Value Reference Range Interpretation Comments TOTAL PROTEIN (BEAKER) (test code = 770) 5.4 gm/dL 6.0-8.3 L ALBUMIN (BEAKER) (test code = 1145) 2.5 g/dL 3.5-5.0 L BILIRUBIN TOTAL (BEAKER) (test code = 377) 1.1 mg/dL 0.2-1.2 BILIRUBIN DIRECT (BEAKER) (test code = 706) 0.8 mg/dL 0.1-0.5 H ALKALINE PHOSPHATASE (BEAKER) (test code = 346) 406 U/L 40-150 H AST (SGOT) (BEAKER) (test code = 353) 219 U/L 5-34 H ALT (SGPT) (BEAKER) (test code = 347) 425 U/L 6-55 H Marketing Strategy Manager ID - ALLISON MBLOOD GAS, [id number] 04:08:00* Test Item Value Reference Range Interpretation Comments PH ARTERIAL (BEAKER) (test code = 383) 7.39 7.35-7.45 PCO2 ARTERIAL (BEAKER) (test code = 384) 48 mmHg 35-45 H PO2 ARTERIAL (BEAKER) (test code = 385) 112 mmHg 80-90 H O2 SATURATION ARTERIAL (BEAKER) (test code = 386) 98.0 % 96.0 -97.0 H HCO3 ARTERIAL (BEAKER) (test code = 388) 28 mmol/L 21-29 BASE EXCESS ARTERIAL (BEAKER) (test code = 387) 2.9 mmol/L -2.0-3 .0 PATIENT TEMPERATURE (BEAKER) (test code = 1818) 37.0 C FIO2 (BEAKER) (test code = 1819) 40.0 % [id number] 23:44:00* Test Item Value Reference Range Interpretation Comments PHOSPHORUS (BEAKER) (test code = 604) 2.7 mg/dL 2.3-4.7 Marketing Strategy Manager ID - ESTELLASHARON [id number] 23:44:00* Test Item Value Reference Range Interpretation Comments MAGNESIUM (BEAKER) (test code = 627) 1.8 mg/dL 1.6-2.6 Marketing Strategy Manager ID - LUISA LCALCIUM, [id number] 23:28:00* Test Item Value Reference Range Interpretation Comments CALCIUM IONIZED (BEAKER) (test code = 698) 1.10 mmol/L 1.12-1.27 L PH, BLOOD (BEAKER) (test code = 1810) 7.41 POCT-GLUCOSE [id number] 23:22:00* Test Item Value Reference Range Interpretation Comments POC-GLUCOSE METER (BEAKER) (test code = 1538) 172 mg/dL 70-110 H : TESTED AT [facility] [address] [facility], [address]: Marketing Strategy Manager/Clinical Laboratory Technician ID = [id number] for Kannan Garcia BASIC METABOLIC [id number] 22:11:00* Test Item Value Reference Range Interpretation Comments SODIUM (BEAKER) (test code = 381) 137 meq/L 136-145 POTASSIUM (BEAKER) (test code = 379) 4.4 meq/L 3.5-5.1 Specimen slightly hemolyzed CHLORIDE (BEAKER) (test code = 382) 107 meq/L 98-107 CO2 (BEAKER) (test code = 355) 24 meq/L 22-29 BLOOD UREA NITROGEN (BEAKER) (test code = 354) 53 mg/dL 7-21 H CREATININE (BEAKER) (test code = 358) 1.45 mg/dL 0.57-1.25 H Specimen slightly hemolyzed GLUCOSE RANDOM (BEAKER) (test code = 652) 150 mg/dL 70-105 H CALCIUM (BEAKER) (test code = 697) 7.7 mg/dL 8.4-10.2 L EGFR (BEAKER) (test code = 1092) 51 mL/min/1.73 sq m ESTIMATED GFR IS NOT ACCURATE CREATININE CLEARANCE IN PREDICTING GLOMERULAR FILTRATION RATE. ESTIMATED GFR IS NOT APPLICABLE FOR DIALYSIS PATIENTS. Marketing Strategy Manager ID - ASCBC (HEMOGRAM ONLY)2020-01-18 20:43:00* Test Item Value Reference Range Interpretation Comments WHITE BLOOD CELL COUNT (BEAKER) (test code = 775) 7.4 K/ L 3.5- 10.5 RED BLOOD CELL COUNT (BEAKER) (test code = 761) 2.35 M/ L 4.63-6 .08 L HEMOGLOBIN (BEAKER) (test code = 410) 7.1 GM/DL 13.7-17.5 L HEMATOCRIT (BEAKER) (test code = 411) 22.6 % 40.1-51.0 L MEAN CORPUSCULAR VOLUME (BEAKER) (test code = 753) 96.2 fL 79. 0-92.2 H MEAN CORPUSCULAR HEMOGLOBIN (BEAKER) (test code = 751) 30.2 pg 25.7-32.2 MEAN CORPUSCULAR HEMOGLOBIN CONC (BEAKER) (test code = 752) 31.4 GM/DL 32.3-36.5 L RED CELL DISTRIBUTION WIDTH (BEAKER) (test code = 412) 16.5 % 11.6-14.4 H PLATELET COUNT (BEAKER) (test code = 756) 99 K/CU MM 150-450 L MEAN PLATELET VOLUME (BEAKER) (test code = 754) 11.3 fL 9.4-12 .4 NUCLEATED RED BLOOD CELLS (BEAKER) (test code = 413) 0 /100 WBC 0 -0 POCT-GLUCOSE [id number] 16:10:00* Test Item Value Reference Range Interpretation Comments POC-GLUCOSE METER (BEAKER) (test code = 1538) 267 mg/dL 70-110 H : TESTED AT [facility] [address] [facility], [address]: Marketing Strategy Manager/Clinical Laboratory Technician ID = [id number] for JENNIFER KELLY BLOOD GAS, [id number] 16:04:00* Test Item Value Reference Range Interpretation Comments PH ARTERIAL (BEAKER) (test code = 383) 7.46 7.35-7.45 H PCO2 ARTERIAL (BEAKER) (test code = 384) 39 mmHg 35-45 PO2 ARTERIAL (BEAKER) (test code = 385) 134 mmHg 80-90 H O2 SATURATION ARTERIAL (BEAKER) (test code = 386) 98.8 % 96.0 -97.0 H HCO3 ARTERIAL (BEAKER) (test code = 388) 27 mmol/L 21-29 BASE EXCESS ARTERIAL (BEAKER) (test code = 387) 2.5 mmol/L -2.0-3 .0 PATIENT TEMPERATURE (BEAKER) (test code = 1818) 37.0 C FIO2 (BEAKER) (test code = 1819) 40.0 % CBC (HEMOGRAM ONLY)2020-01-18 12:02:00* Test Item Value Reference Range Interpretation Comments WHITE BLOOD CELL COUNT (BEAKER) (test code = 775) 8.1 K/ L 3.5- 10.5 RED BLOOD CELL COUNT (BEAKER) (test code = 761) 2.56 M/ L 4.63-6 .08 L HEMOGLOBIN (BEAKER) (test code = 410) 7.9 GM/DL 13.7-17.5 L HEMATOCRIT (BEAKER) (test code = 411) 24.6 % 40.1-51.0 L MEAN CORPUSCULAR VOLUME (BEAKER) (test code = 753) 96.1 fL 79. 0-92.2 H MEAN CORPUSCULAR HEMOGLOBIN (BEAKER) (test code = 751) 30.9 pg 25.7-32.2 MEAN CORPUSCULAR HEMOGLOBIN CONC (BEAKER) (test code = 752) 32.1 GM/DL 32.3-36.5 L RED CELL DISTRIBUTION WIDTH (BEAKER) (test code = 412) 16.6 % 11.6-14.4 H PLATELET COUNT (BEAKER) (test code = 756) 112 K/CU MM 150-450 L MEAN PLATELET VOLUME (BEAKER) (test code = 754) 11.4 fL 9.4-12 .4 NUCLEATED RED BLOOD CELLS (BEAKER) (test code = 413) 0 /100 WBC 0 -0 BLOOD GAS, [id number] 11:53:00* Test Item Value Reference Range Interpretation Comments PH ARTERIAL (BEAKER) (test code = 383) 7.44 7.35-7.45 PCO2 ARTERIAL (BEAKER) (test code = 384) 40 mmHg 35-45 PO2 ARTERIAL (BEAKER) (test code = 385) 100 mmHg 80-90 H O2 SATURATION ARTERIAL (BEAKER) (test code = 386) 97.7 % 96.0 -97.0 H HCO3 ARTERIAL (BEAKER) (test code = 388) 26 mmol/L 21-29 BASE EXCESS ARTERIAL (BEAKER) (test code = 387) 2.1 mmol/L -2.0-3 .0 PATIENT TEMPERATURE (BEAKER) (test code = 1818) 37.0 C FIO2 (BEAKER) (test code = 1819) 40.0 % POCT-GLUCOSE [id number] 11:50:00* Test Item Value Reference Range Interpretation Comments POC-GLUCOSE METER (BEAKER) (test code = 1538) 247 mg/dL 70-110 H : TESTED AT [facility] [address] [place] [address], [id number]: Marketing Strategy Manager/Clinical Laboratory Technician ID = [id number] for JENNIFER KELLY BLOOD [id number] 10:23:00* Test Item Value Reference Range Interpretation Comments CULTURE (BEAKER) (test code = 1095) A From Aerobic Bottle Only Coagulase negative Staphylococcusof a second type GRAM STAIN RESULT (BEAKER) (test code = 1123) From aer obic bottle only: gram positive cocci in clusters BLOOD [id number] 10:23:00* Test Item Value Reference Range Interpretation Comments CULTURE (BEAKER) (test code = 1095) COAGULASE NEGATIVE STAPHYLOCOCC US A From Anaerobic Bottle Only Coagulase negative Staphylococcus* - Staphylococcus capitis Clindamycin (test code = 10) R Erythromycin (test code = 4) R Linezolid (test code = 40) S Oxacillin (test code = 14) R Rifampin (test code = 43) S Tetracycline (test code = 2) S Trimethoprim + Sulfamethoxazole (test code = 47) S Vancomycin (test code = 13) S GRAM STAIN RESULT (BEAKER) (test code = 1123) From ramu erobic bottle only: gram positive cocci in clusters COMPREHENSIVE METABOLIC [id number] 09:50:00* Test Item Value Reference Range Interpretation Comments TOTAL PROTEIN (BEAKER) (test code = 770) 5.3 gm/dL 6.0-8.3 L ALBUMIN (BEAKER) (test code = 1145) 2.6 g/dL 3.5-5.0 L ALKALINE PHOSPHATASE (BEAKER) (test code = 346) 371 U/L 40-150 H BILIRUBIN TOTAL (BEAKER) (test code = 377) 1.1 mg/dL 0.2-1.2 SODIUM (BEAKER) (test code = 381) 132 meq/L 136-145 L POTASSIUM (BEAKER) (test code = 379) 4.6 meq/L 3.5-5.1 CHLORIDE (BEAKER) (test code = 382) 102 meq/L 98-107 CO2 (BEAKER) (test code = 355) 24 meq/L 22-29 BLOOD UREA NITROGEN (BEAKER) (test code = 354) 40 mg/dL 7-21 H CREATININE (BEAKER) (test code = 358) 1.48 mg/dL 0.57-1.25 H GLUCOSE RANDOM (BEAKER) (test code = 652) 328 mg/dL 70-105 H CALCIUM (BEAKER) (test code = 697) 7.4 mg/dL 8.4-10.2 L AST (SGOT) (BEAKER) (test code = 353) 159 U/L 5-34 H ALT (SGPT) (BEAKER) (test code = 347) 281 U/L 6-55 H EGFR (BEAKER) (test code = 1092) 49 mL/min/1.73 sq m ESTIMATED GFR IS NOT ACCURATE CREATININE CLEARANCE IN PREDICTING GLOMERULAR FILTRATION RATE. ESTIMATED GFR IS NOT APPLICABLE FOR DIALYSIS PATIENTS. Marketing Strategy Manager ID - RESHMA CPOCT-GLUCOSE [id number] 05:56:00* Test Item Value Reference Range Interpretation Comments POC-GLUCOSE METER (BEAKER) (test code = 1538) 285 mg/dL 70-110 H : TESTED AT [facility] [address] [facility] [place], [id number]: Marketing Strategy Manager/Clinical Laboratory Technician ID = [id number] for Slade Roberson CBC W/PLT COUNT & AUTO [id number] 04:12:00* Test Item Value Reference Range Interpretation Comments WHITE BLOOD CELL COUNT (BEAKER) (test code = 775) 8.2 K/ L 3.5- 10.5 RED BLOOD CELL COUNT (BEAKER) (test code = 761) 2.47 M/ L 4.63-6 .08 L HEMOGLOBIN (BEAKER) (test code = 410) 7.6 GM/DL 13.7-17.5 L HEMATOCRIT (BEAKER) (test code = 411) 23.8 % 40.1-51.0 L MEAN CORPUSCULAR VOLUME (BEAKER) (test code = 753) 96.4 fL 79. 0-92.2 H MEAN CORPUSCULAR HEMOGLOBIN (BEAKER) (test code = 751) 30.8 pg 25.7-32.2 MEAN CORPUSCULAR HEMOGLOBIN CONC (BEAKER) (test code = 752) 31.9 GM/DL 32.3-36.5 L RED CELL DISTRIBUTION WIDTH (BEAKER) (test code = 412) 16.7 % 11.6-14.4 H PLATELET COUNT (BEAKER) (test code = 756) 99 K/CU MM 150-450 L MEAN PLATELET VOLUME (BEAKER) (test code = 754) 11.8 fL 9.4-12 .4 NUCLEATED RED BLOOD CELLS (BEAKER) (test code = 413) 0 /100 WBC 0 -0 (CELLAVISION MANUAL DIFF)2020-01-18 04:12:00* Test Item Value Reference Range Interpretation Comments NEUTROPHILS - REL (CELLAVISION)(BEAKER) (test code = 2816) 86 % LYMPHOCYTES - REL (CELLAVISION)(BEAKER) (test code = 2817) 8 % MONOCYTES - REL (CELLAVISION)(BEAKER) (test code = 2818) 1 % METAMYELOCYTES - REL (CELLAVISION)(BEAKER) (test code = 2821) 2 % 0-0 H MYELOCYTES - REL (CELLAVISION)(BEAKER) (test code = 2822) 2 % 0-0 H BANDS - REL (CELLAVISION)(BEAKER) (test code = 2826) 1 % 0 -10 NEUTROPHILS - ABS (CELLAVISION)(BEAKER) (test code = 2830) 7.05 K/ul 1.78-5.38 H LYMPHOCYTES - ABS (CELLAVISION)(BEAKER) (test code = 2831) 0.66 K/ul 1.32-3.57 L MONOCYTES - ABS (CELLAVISION)(BEAKER) (test code = 2832) 0.08 K/uL 0.30-0.82 L METAMYELOCYTES - ABS (CELLAVISION)(BEAKER) (test code = 2836 ) 0.16 K/uL 0.00-0.00 H MYELOCYTES-ABS (CELLAVISION)(BEAKER) (test code = 2837) 0.16 K/uL 0.00-0.00 H BANDS - ABS (CELLAVISION)(BEAKER) (test code = 2840) 0.08 K/uL 0 .00-0.80 TOTAL COUNTED (BEAKER) (test code = 1351) 100 MANUAL NRBC PER 100 CELLS (BEAKER) (test code = 1353) 1 /100 WBC 0-0 H WBC MORPHOLOGY (BEAKER) (test code = 487) Normal LARGE PLT(BEAKER) (test code = 2156) Present POLYCHROMATOPHILLIC RBCS(BEAKER) (test code = 478) 1+ few ANISOCYTOSIS (BEAKER) (test code = 961) 1+ few MICROCYTES (BEAKER) (test code = 965) 1+ few MACROCYTES (BEAKER) (test code = 964) 1+ few POIKILOCYTES (BEAKER) (test code = 966) 1+ few SCHISTOCYTES (BEAKER) (test code = 765) 1+ few OVALOCYTES (BEAKER) (test code = 477) 1+ few BASOPHILIC STIPPLING (BEAKER) (test code = 473) Present ARTIFACT (CELLAVISION)(BEAKER) (test code = 3432) Present PLATELET CONCENTRATION (CELLAVISION)(BEAKER) (test code = 3438) Dec reased Marketing Strategy Manager ID - Preeti comments: Slide comments: [id number] 03:57:00* Test Item Value Reference Range Interpretation Comments Calcium (test code = 79814-9) 7.5 mg/dL 8.4-10.2 L LOY (test code = LOY) Marketing Strategy Manager ID - DB Lab Interpretation (test code = 76595-6) [facility] 03:57:[facility]* Test Item Value Reference Range Interpretation Comments CALCIUM (BEAKER) (test code = 697) 7.5 mg/dL 8.4-10.2 L Marketing Strategy Manager ID - DBBLOOD GAS, [id number] 03:56:00* Test Item Value Reference Range Interpretation Comments PH ARTERIAL (BEAKER) (test code = 383) 7.38 7.35-7.45 PCO2 ARTERIAL (BEAKER) (test code = 384) 46 mmHg 35-45 H PO2 ARTERIAL (BEAKER) (test code = 385) 201 mmHg 80-90 H O2 SATURATION ARTERIAL (BEAKER) (test code = 386) 99.3 % 96.0 -97.0 H HCO3 ARTERIAL (BEAKER) (test code = 388) 26 mmol/L 21-29 BASE EXCESS ARTERIAL (BEAKER) (test code = 387) 1.0 mmol/L -2.0-3 .0 PATIENT TEMPERATURE (BEAKER) (test code = 1818) 37.0 C FIO2 (BEAKER) (test code = 1819) 50.0 % HEPATIC FUNCTION [id number] 03:54:00* Test Item Value Reference Range Interpretation Comments TOTAL PROTEIN (BEAKER) (test code = 770) 5.3 gm/dL 6.0-8.3 L ALBUMIN (BEAKER) (test code = 1145) 2.6 g/dL 3.5-5.0 L BILIRUBIN TOTAL (BEAKER) (test code = 377) 1.1 mg/dL 0.2-1.2 BILIRUBIN DIRECT (BEAKER) (test code = 706) 0.8 mg/dL 0.1-0.5 H ALKALINE PHOSPHATASE (BEAKER) (test code = 346) 373 U/L 40-150 H AST (SGOT) (BEAKER) (test code = 353) 154 U/L 5-34 H ALT (SGPT) (BEAKER) (test code = 347) 282 U/L 6-55 H Marketing Strategy Manager ID - DBPOCT-GLUCOSE [id number] 00:02:00* Test Item Value Reference Range Interpretation Comments POC-GLUCOSE METER (BEAKER) (test code = 1538) 288 mg/dL 70-110 H : TESTED AT [address], [address]: Marketing Strategy Manager/Clinical Laboratory Technician ID = [id number] for Slade Roberson [id number] 22:26:00* Test Item Value Reference Range Interpretation Comments PHOSPHORUS (BEAKER) (test code = 604) 2.3 mg/dL 2.3-4.7 Marketing Strategy Manager ID - [id number] 22:26:00* Test Item Value Reference Range Interpretation Comments MAGNESIUM (BEAKER) (test code = 627) 2.1 mg/dL 1.6-2.6 Marketing Strategy Manager ID - DBCBC (HEMOGRAM ONLY)2020-01-17 22:10:00* Test Item Value Reference Range Interpretation Comments WHITE BLOOD CELL COUNT (BEAKER) (test code = 775) 9.4 K/ L 3.5- 10.5 RED BLOOD CELL COUNT (BEAKER) (test code = 761) 2.53 M/ L 4.63-6 .08 L HEMOGLOBIN (BEAKER) (test code = 410) 7.7 GM/DL 13.7-17.5 L HEMATOCRIT (BEAKER) (test code = 411) 24.2 % 40.1-51.0 L MEAN CORPUSCULAR VOLUME (BEAKER) (test code = 753) 95.7 fL 79. 0-92.2 H MEAN CORPUSCULAR HEMOGLOBIN (BEAKER) (test code = 751) 30.4 pg 25.7-32.2 MEAN CORPUSCULAR HEMOGLOBIN CONC (BEAKER) (test code = 752) 31.8 GM/DL 32.3-36.5 L RED CELL DISTRIBUTION WIDTH (BEAKER) (test code = 412) 17.0 % 11.6-14.4 H PLATELET COUNT (BEAKER) (test code = 756) 95 K/CU MM 150-450 L MEAN PLATELET VOLUME (BEAKER) (test code = 754) 12.0 fL 9.4-12 .4 NUCLEATED RED BLOOD CELLS (BEAKER) (test code = 413) 0 /100 WBC 0 -0 POCT-GLUCOSE [id number] 21:55:00* Test Item Value Reference Range Interpretation Comments POC-GLUCOSE METER (BEAKER) (test code = 1538) 223 mg/dL 70-110 H : TESTED AT [place] [id number] [facility], [address]: Marketing Strategy Manager/Clinical Laboratory Technician ID = [id number] for Slade oRberson POCT-GLUCOSE [id number] 17:53:00* Test Item Value Reference Range Interpretation Comments POC-GLUCOSE METER (BEAKER) (test code = 1538) 191 mg/dL 70-110 H : TESTED AT [address], [address]: Marketing Strategy Manager/Clinical Laboratory Technician ID = [id number] for JENNIFER KELLY BLOOD GAS, [id number] 16:48:00* Test Item Value Reference Range Interpretation Comments PH ARTERIAL (BEAKER) (test code = 383) 7.44 7.35-7.45 PCO2 ARTERIAL (BEAKER) (test code = 384) 42 mmHg 35-45 PO2 ARTERIAL (BEAKER) (test code = 385) 146 mmHg 80-90 H O2 SATURATION ARTERIAL (BEAKER) (test code = 386) 98.9 % 96.0 -97.0 H HCO3 ARTERIAL (BEAKER) (test code = 388) 28 mmol/L 21-29 BASE EXCESS ARTERIAL (BEAKER) (test code = 387) 3.4 mmol/L -2.0-3 .0 H PATIENT TEMPERATURE (BEAKER) (test code = 1818) 37.0 C FIO2 (BEAKER) (test code = 1819) 100.0 % BLOOD [id number] 15:00:00* Test Item Value Reference Range Interpretation Comments CULTURE (BEAKER) (test code = 1095) No growth in 5 days POCT-GLUCOSE [id number] 11:56:00* Test Item Value Reference Range Interpretation Comments POC-GLUCOSE METER (BEAKER) (test code = 1538) 175 mg/dL 70-110 H : TESTED AT [facility] [address] [facility] [place], [address]: Marketing Strategy Manager/Clinical Laboratory Technician ID = [id number] for JENNIFER KELLY [id number] 09:15:00* Test Item Value Reference Range Interpretation Comments PHOSPHORUS (BEAKER) (test code = 604) 2.6 mg/dL 2.3-4.7 Marketing Strategy Manager ID - [id number] 09:15:00* Test Item Value Reference Range Interpretation Comments MAGNESIUM (BEAKER) (test code = 627) 2.0 mg/dL 1.6-2.6 Marketing Strategy Manager ID - DBSPUTUM CULTURE + GRAM [id number] 09:12:00* Test Item Value Reference Range Interpretation Comments CULTURE (BEAKER) (test code = 1095) See comment GRAM STAIN RESULT (BEAKER) (test code = 1123) 1+ White blood cells seen GRAM STAIN RESULT (BEAKER) (test code = 75007) 2+ gram positive cocci in pairs and clusters 4+ Normal respiratory st[facility] (HE[facility] ONLY)2020-01-17 08:51:00* Test Item Value Reference Range Interpretation Comments WHITE BLOOD CELL COUNT (BEAKER) (test code = 775) 10.9 K/ L 3.5- 10.5 H RED BLOOD CELL COUNT (BEAKER) (test code = 761) 2.65 M/ L 4.63-6 .08 L HEMOGLOBIN (BEAKER) (test code = 410) 8.0 GM/DL 13.7-17.5 L HEMATOCRIT (BEAKER) (test code = 411) 25.3 % 40.1-51.0 L MEAN CORPUSCULAR VOLUME (BEAKER) (test code = 753) 95.5 fL 79. 0-92.2 H MEAN CORPUSCULAR HEMOGLOBIN (BEAKER) (test code = 751) 30.2 pg 25.7-32.2 MEAN CORPUSCULAR HEMOGLOBIN CONC (BEAKER) (test code = 752) 31.6 GM/DL 32.3-36.5 L RED CELL DISTRIBUTION WIDTH (BEAKER) (test code = 412) 17.2 % 11.6-14.4 H PLATELET COUNT (BEAKER) (test code = 756) 96 K/CU MM 150-450 L MEAN PLATELET VOLUME (BEAKER) (test code = 754) 11.8 fL 9.4-12 .4 NUCLEATED RED BLOOD CELLS (BEAKER) (test code = 413) 0 /100 WBC 0 -0 POCT-GLUCOSE [id number] 07:13:00* Test Item Value Reference Range Interpretation Comments POC-GLUCOSE METER (BEAKER) (test code = 1538) 270 mg/dL 70-110 H : TESTED AT [facility] [address] [facility] [place], [address]: Marketing Strategy Manager/Clinical Laboratory Technician ID = [id number] for NEIDA RODRIGUEZ BLOOD GAS, [id number] 04:23:00* Test Item Value Reference Range Interpretation Comments PH ARTERIAL (BEAKER) (test code = 383) 7.39 7.35-7.45 PCO2 ARTERIAL (BEAKER) (test code = 384) 45 mmHg 35-45 PO2 ARTERIAL (BEAKER) (test code = 385) 70 mmHg 80-90 L O2 SATURATION ARTERIAL (BEAKER) (test code = 386) 94.5 % 96.0 -97.0 L HCO3 ARTERIAL (BEAKER) (test code = 388) 27 mmol/L 21-29 BASE EXCESS ARTERIAL (BEAKER) (test code = 387) 1.4 mmol/L -2.0-3 .0 PATIENT TEMPERATURE (BEAKER) (test code = 1818) 36.1 C FIO2 (BEAKER) (test code = 1819) 50.0 % CBC W/PLT COUNT & AUTO [id number] 03:50:00* Test Item Value Reference Range Interpretation Comments WHITE BLOOD CELL COUNT (BEAKER) (test code = 775) 10.8 K/ L 3.5- 10.5 H RED BLOOD CELL COUNT (BEAKER) (test code = 761) 2.51 M/ L 4.63-6 .08 L HEMOGLOBIN (BEAKER) (test code = 410) 7.7 GM/DL 13.7-17.5 L HEMATOCRIT (BEAKER) (test code = 411) 23.9 % 40.1-51.0 L MEAN CORPUSCULAR VOLUME (BEAKER) (test code = 753) 95.2 fL 79. 0-92.2 H MEAN CORPUSCULAR HEMOGLOBIN (BEAKER) (test code = 751) 30.7 pg 25.7-32.2 MEAN CORPUSCULAR HEMOGLOBIN CONC (BEAKER) (test code = 752) 32.2 GM/DL 32.3-36.5 L RED CELL DISTRIBUTION WIDTH (BEAKER) (test code = 412) 17.1 % 11.6-14.4 H PLATELET COUNT (BEAKER) (test code = 756) 77 K/CU MM 150-450 L MEAN PLATELET VOLUME (BEAKER) (test code = 754) 11.6 fL 9.4-12 .4 NUCLEATED RED BLOOD CELLS (BEAKER) (test code = 413) 0 /100 WBC 0 -0 NEUTROPHILS RELATIVE PERCENT (BEAKER) (test code = 429) 81 % LYMPHOCYTES RELATIVE PERCENT (BEAKER) (test code = 430) 7 % MONOCYTES RELATIVE PERCENT (BEAKER) (test code = 431) 6 % EOSINOPHILS RELATIVE PERCENT (BEAKER) (test code = 432) 1 % BASOPHILS RELATIVE PERCENT (BEAKER) (test code = 437) 0 % NEUTROPHILS ABSOLUTE COUNT (BEAKER) (test code = 670) 8.69 K/ L 1.78-5.38 H LYMPHOCYTES ABSOLUTE COUNT (BEAKER) (test code = 414) 0.74 K/ L 1.32-3.57 L MONOCYTES ABSOLUTE COUNT (BEAKER) (test code = 415) 0.66 K/ L 0. 30-0.82 EOSINOPHILS ABSOLUTE COUNT (BEAKER) (test code = 416) 0.09 K/ L 0.04-0.54 BASOPHILS ABSOLUTE COUNT (BEAKER) (test code = 417) 0.02 K/ L 0. 01-0.08 IMMATURE GRANULOCYTES-RELATIVE PERCENT (BEAKER) (test code = 2801) 5 % 0-1 H BASIC METABOLIC [id number] 03:09:00* Test Item Value Reference Range Interpretation Comments SODIUM (BEAKER) (test code = 381) 133 meq/L 136-145 L POTASSIUM (BEAKER) (test code = 379) 4.4 meq/L 3.5-5.1 CHLORIDE (BEAKER) (test code = 382) 101 meq/L 98-107 CO2 (BEAKER) (test code = 355) 26 meq/L 22-29 BLOOD UREA NITROGEN (BEAKER) (test code = 354) 22 mg/dL 7-21 H CREATININE (BEAKER) (test code = 358) 1.09 mg/dL 0.57-1.25 GLUCOSE RANDOM (BEAKER) (test code = 652) 363 mg/dL 70-105 H CALCIUM (BEAKER) (test code = 697) 7.6 mg/dL 8.4-10.2 L EGFR (BEAKER) (test code = 1092) 70 mL/min/1.73 sq m ESTIMATED GFR IS NOT ACCURATE CREATININE CLEARANCE IN PREDICTING GLOMERULAR FILTRATION RATE. ESTIMATED GFR IS NOT APPLICABLE FOR DIALYSIS PATIENTS. Marketing Strategy Manager ID - DBHEPATIC FUNCTION [id number] 03:02:00* Test Item Value Reference Range Interpretation Comments TOTAL PROTEIN (BEAKER) (test code = 770) 5.4 gm/dL 6.0-8.3 L ALBUMIN (BEAKER) (test code = 1145) 2.7 g/dL 3.5-5.0 L BILIRUBIN TOTAL (BEAKER) (test code = 377) 1.4 mg/dL 0.2-1.2 H BILIRUBIN DIRECT (BEAKER) (test code = 706) 1.0 mg/dL 0.1-0.5 H ALKALINE PHOSPHATASE (BEAKER) (test code = 346) 364 U/L 40-150 H AST (SGOT) (BEAKER) (test code = 353) 110 U/L 5-34 H ALT (SGPT) (BEAKER) (test code = 347) 211 U/L 6-55 H Marketing Strategy Manager ID - DBPOCT-GLUCOSE [id number] 00:51:00* Test Item Value Reference Range Interpretation Comments POC-GLUCOSE METER (BEAKER) (test code = 1538) 288 mg/dL 70-110 H : TESTED AT [facility] [address] [facility], [address]: Marketing Strategy Manager/Clinical Laboratory Technician ID = [id number] for NEIDA RODRIGUEZ [id number] 22:49:00* Test Item Value Reference Range Interpretation Comments PHOSPHORUS (BEAKER) (test code = 604) 1.7 mg/dL 2.3-4.7 L Marketing Strategy Manager ID - [id number] 22:49:00* Test Item Value Reference Range Interpretation Comments MAGNESIUM (BEAKER) (test code = 627) 2.0 mg/dL 1.6-2.6 Marketing Strategy Manager ID - DBBLOOD GAS, [id number] 17:40:00* Test Item Value Reference Range Interpretation Comments PH ARTERIAL (BEAKER) (test code = 383) 7.47 7.35-7.45 H PCO2 ARTERIAL (BEAKER) (test code = 384) 39 mmHg 35-45 PO2 ARTERIAL (BEAKER) (test code = 385) 105 mmHg 80-90 H O2 SATURATION ARTERIAL (BEAKER) (test code = 386) 98.3 % 96.0 -97.0 H HCO3 ARTERIAL (BEAKER) (test code = 388) 28 mmol/L 21-29 BASE EXCESS ARTERIAL (BEAKER) (test code = 387) 3.9 mmol/L -2.0-3 .0 H PATIENT TEMPERATURE (BEAKER) (test code = 1818) 35.8 C FIO2 (BEAKER) (test code = 1819) 100.0 % CBC W/PLT COUNT & AUTO [id number] 17:36:00* Test Item Value Reference Range Interpretation Comments WHITE BLOOD CELL COUNT (BEAKER) (test code = 775) 12.1 K/ L 3.5- 10.5 H RED BLOOD CELL COUNT (BEAKER) (test code = 761) 2.73 M/ L 4.63-6 .08 L HEMOGLOBIN (BEAKER) (test code = 410) 8.4 GM/DL 13.7-17.5 L HEMATOCRIT (BEAKER) (test code = 411) 26.1 % 40.1-51.0 L MEAN CORPUSCULAR VOLUME (BEAKER) (test code = 753) 95.6 fL 79. 0-92.2 H MEAN CORPUSCULAR HEMOGLOBIN (BEAKER) (test code = 751) 30.8 pg 25.7-32.2 MEAN CORPUSCULAR HEMOGLOBIN CONC (BEAKER) (test code = 752) 32.2 GM/DL 32.3-36.5 L RED CELL DISTRIBUTION WIDTH (BEAKER) (test code = 412) 17.2 % 11.6-14.4 H PLATELET COUNT (BEAKER) (test code = 756) 86 K/CU MM 150-450 L MEAN PLATELET VOLUME (BEAKER) (test code = 754) 11.9 fL 9.4-12 .4 NUCLEATED RED BLOOD CELLS (BEAKER) (test code = 413) 0 /100 WBC 0 -0 NEUTROPHILS RELATIVE PERCENT (BEAKER) (test code = 429) 83 % LYMPHOCYTES RELATIVE PERCENT (BEAKER) (test code = 430) 5 % MONOCYTES RELATIVE PERCENT (BEAKER) (test code = 431) 6 % EOSINOPHILS RELATIVE PERCENT (BEAKER) (test code = 432) 1 % BASOPHILS RELATIVE PERCENT (BEAKER) (test code = 437) 0 % NEUTROPHILS ABSOLUTE COUNT (BEAKER) (test code = 670) 9.96 K/ L 1.78-5.38 H LYMPHOCYTES ABSOLUTE COUNT (BEAKER) (test code = 414) 0.58 K/ L 1.32-3.57 L MONOCYTES ABSOLUTE COUNT (BEAKER) (test code = 415) 0.74 K/ L 0. 30-0.82 EOSINOPHILS ABSOLUTE COUNT (BEAKER) (test code = 416) 0.10 K/ L 0.04-0.54 BASOPHILS ABSOLUTE COUNT (BEAKER) (test code = 417) 0.02 K/ L 0. 01-0.08 IMMATURE GRANULOCYTES-RELATIVE PERCENT (BEAKER) (test code = 2801) 5 % 0-1 H POCT-GLUCOSE [id number] 17:27:00* Test Item Value Reference Range Interpretation Comments POC-GLUCOSE METER (BEAKER) (test code = 1538) 135 mg/dL 70-110 H : TESTED AT [address], [address]: Marketing Strategy Manager/Clinical Laboratory Technician ID = [id number] for ART PEREZ POCT-GLUCOSE [id number] 13:30:00* Test Item Value Reference Range Interpretation Comments POC-GLUCOSE METER (BEAKER) (test code = 1538) 143 mg/dL 70-110 H : TESTED AT [address], [address]: Marketing Strategy Manager/Clinical Laboratory Technician ID = [id number] for ART PEREZ CBC W/PLT COUNT & AUTO [id number] 09:20:00* Test Item Value Reference Range Interpretation Comments WHITE BLOOD CELL COUNT (BEAKER) (test code = 775) 13.3 K/ L 3.5- 10.5 H RED BLOOD CELL COUNT (BEAKER) (test code = 761) 2.19 M/ L 4.63-6 .08 L HEMOGLOBIN (BEAKER) (test code = 410) 6.7 GM/DL 13.7-17.5 L HEMATOCRIT (BEAKER) (test code = 411) 21.3 % 40.1-51.0 L MEAN CORPUSCULAR VOLUME (BEAKER) (test code = 753) 97.3 fL 79. 0-92.2 H MEAN CORPUSCULAR HEMOGLOBIN (BEAKER) (test code = 751) 30.6 pg 25.7-32.2 MEAN CORPUSCULAR HEMOGLOBIN CONC (BEAKER) (test code = 752) 31.5 GM/DL 32.3-36.5 L RED CELL DISTRIBUTION WIDTH (BEAKER) (test code = 412) 18.2 % 11.6-14.4 H PLATELET COUNT (BEAKER) (test code = 756) 88 K/CU MM 150-450 L MEAN PLATELET VOLUME (BEAKER) (test code = 754) 11.4 fL 9.4-12 .4 NUCLEATED RED BLOOD CELLS (BEAKER) (test code = 413) 0 /100 WBC 0 -0 (CELLAVISION MANUAL DIFF)2020-01-16 09:20:00* Test Item Value Reference Range Interpretation Comments NEUTROPHILS - REL (CELLAVISION)(BEAKER) (test code = 2816) 91 % LYMPHOCYTES - REL (CELLAVISION)(BEAKER) (test code = 2817) 3 % MONOCYTES - REL (CELLAVISION)(BEAKER) (test code = 2818) 4 % EOSINOPHILS - REL (CELLAVISION)(BEAKER) (test code = 2819) 1 % BANDS - REL (CELLAVISION)(BEAKER) (test code = 2826) 1 % 0 -10 NEUTROPHILS - ABS (CELLAVISION)(BEAKER) (test code = 2830) 12.10 K/ul 1.78-5.38 H LYMPHOCYTES - ABS (CELLAVISION)(BEAKER) (test code = 2831) 0.40 K/ul 1.32-3.57 L MONOCYTES - ABS (CELLAVISION)(BEAKER) (test code = 2832) 0.53 K/uL 0.30-0.82 EOSINOPHILS - ABS (CELLAVISION)(BEAKER) (test code = 2834) 0.13 K/uL 0.04-0.54 BANDS - ABS (CELLAVISION)(BEAKER) (test code = 2840) 0.13 K/uL 0 .00-0.80 TOTAL COUNTED (BEAKER) (test code = 1351) 100 MANUAL NRBC PER 100 CELLS (BEAKER) (test code = 1353) 1 /100 WBC 0-0 H WBC MORPHOLOGY (BEAKER) (test code = 487) Normal PLT MORPHOLOGY (BEAKER) (test code = 486) Normal POLYCHROMATOPHILLIC RBCS(BEAKER) (test code = 478) 1+ few ANISOCYTOSIS (BEAKER) (test code = 961) 1+ few MICROCYTES (BEAKER) (test code = 965) 1+ few BASOPHILIC STIPPLING (BEAKER) (test code = 473) Present ARTIFACT (CELLAVISION)(BEAKER) (test code = 3432) Present PLATELET CONCENTRATION (CELLAVISION)(BEAKER) (test code = 3438) Dec reased Marketing Strategy Manager ID - Carmen OverholtUser comments: Slide comments: CBC W/PLT COUNT & AUTO [id number] 09:18:00* Test Item Value Reference Range Interpretation Comments WHITE BLOOD CELL COUNT (BEAKER) (test code = 775) 12.9 K/ L 3.5- 10.5 H RED BLOOD CELL COUNT (BEAKER) (test code = 761) 2.18 M/ L 4.63-6 .08 L HEMOGLOBIN (BEAKER) (test code = 410) 6.6 GM/DL 13.7-17.5 L HEMATOCRIT (BEAKER) (test code = 411) 21.4 % 40.1-51.0 L MEAN CORPUSCULAR VOLUME (BEAKER) (test code = 753) 98.2 fL 79. 0-92.2 H MEAN CORPUSCULAR HEMOGLOBIN (BEAKER) (test code = 751) 30.3 pg 25.7-32.2 MEAN CORPUSCULAR HEMOGLOBIN CONC (BEAKER) (test code = 752) 30.8 GM/DL 32.3-36.5 L RED CELL DISTRIBUTION WIDTH (BEAKER) (test code = 412) 18.3 % 11.6-14.4 H PLATELET COUNT (BEAKER) (test code = 756) 90 K/CU MM 150-450 L MEAN PLATELET VOLUME (BEAKER) (test code = 754) 12.2 fL 9.4-12 .4 NUCLEATED RED BLOOD CELLS (BEAKER) (test code = 413) 0 /100 WBC 0 -0 [id number] 09:09:00* Test Item Value Reference Range Interpretation Comments PHOSPHORUS (BEAKER) (test code = 604) 2.6 mg/dL 2.3-4.7 Marketing Strategy Manager ID - RYANN [id number] 09:09:00* Test Item Value Reference Range Interpretation Comments MAGNESIUM (BEAKER) (test code = 627) 1.9 mg/dL 1.6-2.6 Marketing Strategy Manager ID - RYANN FBLOOD GAS, [id number] 07:36:00* Test Item Value Reference Range Interpretation Comments PH ARTERIAL (BEAKER) (test code = 383) 7.34 7.35-7.45 L PCO2 ARTERIAL (BEAKER) (test code = 384) 53 mmHg 35-45 H PO2 ARTERIAL (BEAKER) (test code = 385) 138 mmHg 80-90 H O2 SATURATION ARTERIAL (BEAKER) (test code = 386) 98.5 % 96.0 -97.0 H HCO3 ARTERIAL (BEAKER) (test code = 388) 28 mmol/L 21-29 BASE EXCESS ARTERIAL (BEAKER) (test code = 387) 1.7 mmol/L -2.0-3 .0 PATIENT TEMPERATURE (BEAKER) (test code = 1818) 37.0 C FIO2 (BEAKER) (test code = 1819) 50.0 % POCT-GLUCOSE [id number] 07:00:00* Test Item Value Reference Range Interpretation Comments POC-GLUCOSE METER (BEAKER) (test code = 1538) 213 mg/dL 70-110 H : TESTED AT [address], [address]: Marketing Strategy Manager/Clinical Laboratory Technician ID = [id number] for DOUG [facility]JAS [facility]PAT[facility]CTION [id number] 06:39:00* Test Item Value Reference Range Interpretation Comments TOTAL PROTEIN (BEAKER) (test code = 770) 5.7 gm/dL 6.0-8.3 L ALBUMIN (BEAKER) (test code = 1145) 2.9 g/dL 3.5-5.0 L BILIRUBIN TOTAL (BEAKER) (test code = 377) 1.3 mg/dL 0.2-1.2 H BILIRUBIN DIRECT (BEAKER) (test code = 706) 0.9 mg/dL 0.1-0.5 H ALKALINE PHOSPHATASE (BEAKER) (test code = 346) 355 U/L 40-150 H AST (SGOT) (BEAKER) (test code = 353) 103 U/L 5-34 H ALT (SGPT) (BEAKER) (test code = 347) 210 U/L 6-55 H Marketing Strategy Manager ID - EDASIBASIC METABOLIC [id number] 06:39:00* Test Item Value Reference Range Interpretation Comments SODIUM (BEAKER) (test code = 381) 135 meq/L 136-145 L POTASSIUM (BEAKER) (test code = 379) 4.6 meq/L 3.5-5.1 CHLORIDE (BEAKER) (test code = 382) 104 meq/L 98-107 CO2 (BEAKER) (test code = 355) 23 meq/L 22-29 BLOOD UREA NITROGEN (BEAKER) (test code = 354) 22 mg/dL 7-21 H CREATININE (BEAKER) (test code = 358) 1.16 mg/dL 0.57-1.25 GLUCOSE RANDOM (BEAKER) (test code = 652) 228 mg/dL 70-105 H CALCIUM (BEAKER) (test code = 697) 8.0 mg/dL 8.4-10.2 L EGFR (BEAKER) (test code = 1092) 65 mL/min/1.73 sq m ESTIMATED GFR IS NOT ACCURATE CREATININE CLEARANCE IN PREDICTING GLOMERULAR FILTRATION RATE. ESTIMATED GFR IS NOT APPLICABLE FOR DIALYSIS PATIENTS. Marketing Strategy Manager ID - [id number] 02:27:00* Test Item Value Reference Range Interpretation Comments PARTIAL THROMBOPLASTIN TIME (BEAKER) (test code = 760) 45.7 seconds 22.5-36.0 H POCT-GLUCOSE [id number] 01:40:00* Test Item Value Reference Range Interpretation Comments POC-GLUCOSE METER (BEAKER) (test code = 1538) 210 mg/dL 70-110 H : TESTED AT [address], [address]: Marketing Strategy Manager/Clinical Laboratory Technician ID = [id number] for SAMEERA RON POCT-GLUCOSE [id number] 01:11:00* Test Item Value Reference Range Interpretation Comments POC-GLUCOSE METER (BEAKER) (test code = 1538) 218 mg/dL 70-110 H : TESTED AT [facility] [address] [facility] [place], [address]: Marketing Strategy Manager/Clinical Laboratory Technician ID = [id number] for SAMEERA RON BASIC METABOLIC [id number] 21:39:00* Test Item Value Reference Range Interpretation Comments SODIUM (BEAKER) (test code = 381) 135 meq/L 136-145 L POTASSIUM (BEAKER) (test code = 379) 4.4 meq/L 3.5-5.1 CHLORIDE (BEAKER) (test code = 382) 105 meq/L 98-107 CO2 (BEAKER) (test code = 355) 23 meq/L 22-29 BLOOD UREA NITROGEN (BEAKER) (test code = 354) 22 mg/dL 7-21 H CREATININE (BEAKER) (test code = 358) 1.40 mg/dL 0.57-1.25 H GLUCOSE RANDOM (BEAKER) (test code = 652) 141 mg/dL 70-105 H CALCIUM (BEAKER) (test code = 697) 7.3 mg/dL 8.4-10.2 L EGFR (BEAKER) (test code = 1092) 53 mL/min/1.73 sq m ESTIMATED GFR IS NOT ACCURATE CREATININE CLEARANCE IN PREDICTING GLOMERULAR FILTRATION RATE. ESTIMATED GFR IS NOT APPLICABLE FOR DIALYSIS PATIENTS. Marketing Strategy Manager ID - [id number] 21:35:00* Test Item Value Reference Range Interpretation Comments PHOSPHORUS (BEAKER) (test code = 604) 3.0 mg/dL 2.3-4.7 Marketing Strategy Manager ID - [id number] 21:35:00* Test Item Value Reference Range Interpretation Comments MAGNESIUM (BEAKER) (test code = 627) 1.9 mg/dL 1.6-2.6 Marketing Strategy Manager ID - [id number] 18:31:00* Test Item Value Reference Range Interpretation Comments MAGNESIUM (BEAKER) (test code = 627) 2.1 mg/dL 1.6-2.6 Specimen slightly hemolyzed Marketing Strategy Manager ID - [id number] 18:31:00* Test Item Value Reference Range Interpretation Comments PHOSPHORUS (BEAKER) (test code = 604) 3.3 mg/dL 2.3-4.7 Specimen slightly hemolyzed Marketing Strategy Manager ID - ALEJANDRA GAS, [id number] 18:15:00* Test Item Value Reference Range Interpretation Comments PH ARTERIAL (BEAKER) (test code = 383) 7.44 7.35-7.45 PCO2 ARTERIAL (BEAKER) (test code = 384) 41 mmHg 35-45 PO2 ARTERIAL (BEAKER) (test code = 385) 130 mmHg 80-90 H O2 SATURATION ARTERIAL (BEAKER) (test code = 386) 98.7 % 96.0 -97.0 H HCO3 ARTERIAL (BEAKER) (test code = 388) 28 mmol/L 21-29 BASE EXCESS ARTERIAL (BEAKER) (test code = 387) 3.2 mmol/L -2.0-3 .0 H PATIENT TEMPERATURE (BEAKER) (test code = 1818) 36.7 C FIO2 (BEAKER) (test code = 1819) 50.0 % POCT-GLUCOSE [id number] 18:11:00* Test Item Value Reference Range Interpretation Comments POC-GLUCOSE METER (BEAKER) (test code = 1538) 121 mg/dL 70-110 H : TESTED AT [address], [address]: Marketing Strategy Manager/Clinical Laboratory Technician ID = [id number] for ART PEREZ CBC W/PLT COUNT & AUTO [id number] 15:32:00* Test Item Value Reference Range Interpretation Comments WHITE BLOOD CELL COUNT (BEAKER) (test code = 775) 15.1 K/ L 3.5- 10.5 H RED BLOOD CELL COUNT (BEAKER) (test code = 761) 2.80 M/ L 4.63-6 .08 L HEMOGLOBIN (BEAKER) (test code = 410) 8.5 GM/DL 13.7-17.5 L HEMATOCRIT (BEAKER) (test code = 411) 26.5 % 40.1-51.0 L MEAN CORPUSCULAR VOLUME (BEAKER) (test code = 753) 94.6 fL 79. 0-92.2 H MEAN CORPUSCULAR HEMOGLOBIN (BEAKER) (test code = 751) 30.4 pg 25.7-32.2 MEAN CORPUSCULAR HEMOGLOBIN CONC (BEAKER) (test code = 752) 32.1 GM/DL 32.3-36.5 L RED CELL DISTRIBUTION WIDTH (BEAKER) (test code = 412) 18.1 % 11.6-14.4 H PLATELET COUNT (BEAKER) (test code = 756) 118 K/CU MM 150-450 L MEAN PLATELET VOLUME (BEAKER) (test code = 754) 11.6 fL 9.4-12 .4 NUCLEATED RED BLOOD CELLS (BEAKER) (test code = 413) 1 /100 WBC 0 -0 H (CELLAVISION MANUAL DIFF)2020-01-15 15:32:00* Test Item Value Reference Range Interpretation Comments NEUTROPHILS - REL (CELLAVISION)(BEAKER) (test code = 2816) 82 % LYMPHOCYTES - REL (CELLAVISION)(BEAKER) (test code = 2817) 7 % MONOCYTES - REL (CELLAVISION)(BEAKER) (test code = 2818) 7 % MYELOCYTES - REL (CELLAVISION)(BEAKER) (test code = 2822) 1 % 0-0 H BANDS - REL (CELLAVISION)(BEAKER) (test code = 2826) 3 % 0 -10 NEUTROPHILS - ABS (CELLAVISION)(BEAKER) (test code = 2830) 12.38 K/ul 1.78-5.38 H LYMPHOCYTES - ABS (CELLAVISION)(BEAKER) (test code = 2831) 1.06 K/ul 1.32-3.57 L MONOCYTES - ABS (CELLAVISION)(BEAKER) (test code = 2832) 1.06 K/uL 0.30-0.82 H MYELOCYTES-ABS (CELLAVISION)(BEAKER) (test code = 2837) 0.15 K/uL 0.00-0.00 H BANDS - ABS (CELLAVISION)(BEAKER) (test code = 2840) 0.45 K/uL 0 .00-0.80 TOTAL COUNTED (BEAKER) (test code = 1351) 100 PLT MORPHOLOGY (BEAKER) (test code = 486) Normal SMUDGE CELLS (BEAKER) (test code = 1371) Present POLYCHROMATOPHILLIC RBCS(BEAKER) (test code = 478) 3+ many HYPOCHROMIA (BEAKER) (test code = 963) 1+ few ANISOCYTOSIS (BEAKER) (test code = 961) 2+ moderate MICROCYTES (BEAKER) (test code = 965) 2+ moderate POIKILOCYTES (BEAKER) (test code = 966) 1+ few SPHEROCYTES (BEAKER) (test code = 768) 1+ few PLATELET CONCENTRATION (CELLAVISION)(BEAKER) (test code = 3438) Dec reased Marketing Strategy Manager ID - ayden Rainey comments: Slide comments: BLOOD GAS, ARTERIAL 2020-01-15 13:23:00* Test Item Value Reference Range Interpretation Comments PH ARTERIAL (BEAKER) (test code = 383) 7.41 7.35-7.45 PCO2 ARTERIAL (BEAKER) (test code = 384) 43 mmHg 35-45 PO2 ARTERIAL (BEAKER) (test code = 385) 169 mmHg 80-90 H O2 SATURATION ARTERIAL (BEAKER) (test code = 386) 99.2 % 96.0 -97.0 H HCO3 ARTERIAL (BEAKER) (test code = 388) 27 mmol/L 21-29 BASE EXCESS ARTERIAL (BEAKER) (test code = 387) 1.9 mmol/L -2.0-3 .0 PATIENT TEMPERATURE (BEAKER) (test code = 1818) 36.9 C FIO2 (BEAKER) (test code = 1819) 50.0 % POCT-GLUCOSE [id number] 13:14:00* Test Item Value Reference Range Interpretation Comments POC-GLUCOSE METER (BEAKER) (test code = 1538) 130 mg/dL 70-110 H : TESTED AT [facility] [address] [facility], [address]: Marketing Strategy Manager/Clinical Laboratory Technician ID = [id number] for ART PEREZ RAD, CHEST, 1 VIEW, NON [id number] 13:02:00Reason for exam:->ETT positionShould this be performed at the bedside?->YesFINAL REPORT Chest, one view HISTORY: Respiratory failure Comparison: 01/14/2020 Findings: Lungs: Stable bibasilar airspace disease. Heart: Normal in size. Pleura: No pleural effusion or pneumothorax. Bones: Unremarkable. Lines/tubes: Interval removal of previous endotracheal tube and placement of tracheostomy tube. Otherwise, no significant change. Signed: Doron Galvan MDReport Verified Date/Time: 01/15/2020 13:02:26 Reading [facility] [address] [facility] Room Electronically signed by: DORON GALVAN MD on 01/2020 01:02 PM BLOOD GAS, [id number] 06:57:00* Test Item Value Reference Range Interpretation Comments PH ARTERIAL (BEAKER) (test code = 383) 7.38 7.35-7.45 PCO2 ARTERIAL (BEAKER) (test code = 384) 50 mmHg 35-45 H PO2 ARTERIAL (BEAKER) (test code = 385) 161 mmHg 80-90 H O2 SATURATION ARTERIAL (BEAKER) (test code = 386) 99.0 % 96.0 -97.0 H HCO3 ARTERIAL (BEAKER) (test code = 388) 29 mmol/L 21-29 BASE EXCESS ARTERIAL (BEAKER) (test code = 387) 2.8 mmol/L -2.0-3 .0 PATIENT TEMPERATURE (BEAKER) (test code = 1818) 36.7 C FIO2 (BEAKER) (test code = 1819) 60.0 % [id number] 05:37:00* Test Item Value Reference Range Interpretation Comments Protime (test code = 5902-2) 13.3 11.9- 14.2 seconds INR (test code = 6301-6) 1.0 <=5.9 PTT (test code = 00474-2) 27.5 22.5- 36.0 seconds LOY (test code = LOY) Effective 11/04/2018: PT Refe rence Range ChangeNew: 11.9- 14.2 Previous: 11.7-14.7 RECOMMENDED COUMADIN/WARFARIN INR THERAPY RANGESSTANDARD DOSE: 2.0-3.0 Includes: PROPHYLAXIS for venous thrombosis, sys temic embolization; TREATMENT for venous thrombosis and/or pulmonary embolus.HIGH RISK: Target INR is 2.5-3.5 for patients wiht mechanical heart valves. Lab Interpretation (test code = 83779-2) [facility][id number] 05:37:00* Test Item Value Reference Range Interpretation Comments PROTIME (BEAKER) (test code = 759) 13.3 seconds 11.9-14.2 INR (BEAKER) (test code = 370) 1.0 <=5.9 PARTIAL THROMBOPLASTIN TIME (BEAKER) (test code = 760) 27.5 seconds 22.5-36.0 Effective 11/04/2018: PT Reference Range ChangeNew: 11.9-14.2 Previous: 11.7-14. 7RECOMMENDED COUMADIN/WARFARIN INR THERAPY RANGESSTANDARD DOSE: 2.0-3.0 Include s: PROPHYLAXIS for venous thrombosis, systemic embolization; TREATMENT for venou s thrombosis and/or pulmonary embolus.HIGH RISK: Target INR is 2.5-3.5 for patie nts wiht mechanical heart valves.[id number] 05:37:00* Test Item Value Reference Range Interpretation Comments PARTIAL THROMBOPLASTIN TIME (BEAKER) (test code = 760) 27.5 seconds 22.5-36.0 [id number] 05:35:00* Test Item Value Reference Range Interpretation Comments PHOSPHORUS (BEAKER) (test code = 604) 2.6 mg/dL 2.3-4.7 Marketing Strategy Manager ID - ALLISON [id number] 05:35:00* Test Item Value Reference Range Interpretation Comments MAGNESIUM (BEAKER) (test code = 627) 2.0 mg/dL 1.6-2.6 Marketing Strategy Manager ID - ALLISON MBASIC METABOLIC [id number] 05:35:00* Test Item Value Reference Range Interpretation Comments SODIUM (BEAKER) (test code = 381) 136 meq/L 136-145 POTASSIUM (BEAKER) (test code = 379) 4.0 meq/L 3.5-5.1 CHLORIDE (BEAKER) (test code = 382) 104 meq/L 98-107 CO2 (BEAKER) (test code = 355) 26 meq/L 22-29 BLOOD UREA NITROGEN (BEAKER) (test code = 354) 19 mg/dL 7-21 CREATININE (BEAKER) (test code = 358) 1.03 mg/dL 0.57-1.25 GLUCOSE RANDOM (BEAKER) (test code = 652) 121 mg/dL 70-105 H CALCIUM (BEAKER) (test code = 697) 8.1 mg/dL 8.4-10.2 L EGFR (BEAKER) (test code = 1092) 75 mL/min/1.73 sq m ESTIMATED GFR IS NOT ACCURATE CREATININE CLEARANCE IN PREDICTING GLOMERULAR FILTRATION RATE. ESTIMATED GFR IS NOT APPLICABLE FOR DIALYSIS PATIENTS. Marketing Strategy Manager ID - ALLISON MHEPATIC FUNCTION [id number] 05:35:00* Test Item Value Reference Range Interpretation Comments TOTAL PROTEIN (BEAKER) (test code = 770) 6.4 gm/dL 6.0-8.3 ALBUMIN (BEAKER) (test code = 1145) 2.8 g/dL 3.5-5.0 L BILIRUBIN TOTAL (BEAKER) (test code = 377) 1.2 mg/dL 0.2-1.2 BILIRUBIN DIRECT (BEAKER) (test code = 706) 0.8 mg/dL 0.1-0.5 H ALKALINE PHOSPHATASE (BEAKER) (test code = 346) 488 U/L 40-150 H AST (SGOT) (BEAKER) (test code = 353) 120 U/L 5-34 H ALT (SGPT) (BEAKER) (test code = 347) 259 U/L 6-55 H Marketing Strategy Manager ID - ALLISON MPOCT-GLUCOSE [id number] 04:50:00* Test Item Value Reference Range Interpretation Comments POC-GLUCOSE METER (BEAKER) (test code = 1538) 120 mg/dL 70-110 H : TESTED AT [place] [id number] [facility], [address]: Marketing Strategy Manager/Clinical Laboratory Technician ID = [id number] for Shaylee Brown (Setrac) POCT-GLUCOSE [id number] 00:14:00* Test Item Value Reference Range Interpretation Comments POC-GLUCOSE METER (BEAKER) (test code = 1538) 282 mg/dL 70-110 H : TESTED AT [place] [id number] [facility], [address]: Marketing Strategy Manager/Clinical Laboratory Technician ID = [id number] for Shaylee Brown (Setrac) [id number] 22:40:00* Test Item Value Reference Range Interpretation Comments PARTIAL THROMBOPLASTIN TIME (BEAKER) (test code = 760) 50.8 seconds 22.5-36.0 H 4 hours after the start of continuous infusion and 4 hours after any rate change [id number] 18:51:00* Test Item Value Reference Range Interpretation Comments PARTIAL THROMBOPLASTIN TIME (BEAKER) (test code = 760) 37.4 seconds 22.5-36.0 H 4 hours after the start of continuous infusion and 4 hours after any rate change POCT-GLUCOSE [id number] 18:02:00* Test Item Value Reference Range Interpretation Comments POC-GLUCOSE METER (BEAKER) (test code = 1538) 226 mg/dL 70-110 H : TESTED AT [facility] [address] [facility], [address]: Marketing Strategy Manager/Clinical Laboratory Technician ID = [id number] for JENNIFER KELLY [id number] 17:43:00* Test Item Value Reference Range Interpretation Comments PHOSPHORUS (BEAKER) (test code = 604) 2.0 mg/dL 2.3-4.7 L Marketing Strategy Manager ID - [id number] 17:43:00* Test Item Value Reference Range Interpretation Comments MAGNESIUM (BEAKER) (test code = 627) 1.9 mg/dL 1.6-2.6 Marketing Strategy Manager ID - DBBLOOD GAS, [id number] 17:21:00* Test Item Value Reference Range Interpretation Comments PH ARTERIAL (BEAKER) (test code = 383) 7.47 7.35-7.45 H PCO2 ARTERIAL (BEAKER) (test code = 384) 34 mmHg 35-45 L PO2 ARTERIAL (BEAKER) (test code = 385) 98 mmHg 80-90 H O2 SATURATION ARTERIAL (BEAKER) (test code = 386) 97.9 % 96.0 -97.0 H HCO3 ARTERIAL (BEAKER) (test code = 388) 25 mmol/L 21-29 BASE EXCESS ARTERIAL (BEAKER) (test code = 387) 0.8 mmol/L -2.0-3 .0 PATIENT TEMPERATURE (BEAKER) (test code = 1818) 36.5 C FIO2 (BEAKER) (test code = 1819) 40.0 % Thromboelastograph (TEG)2020-01-14 14:41:00* Test Item Value Reference Range Interpretation Comments TEG Activated Clotting Time (test code = 90447-6) 12.8 4.0- 7.0 minutes H TEG Fibrinogen Activity (test code = 15587-3) 43.2 61.0- 73 .0 degrees L TEG Platelet Aggregation (test code = 54338-9) 61.1 55.0- 6 5.0 MM TEG-H Activated Clotting Time (test code = 1411) 6.9 4.0- 7.0 minutes TEG-H Fibrinogen Activity (test code = 1412) 70.6 61.0- 73. 0 degrees TEG-H Platelet Aggregation (test code = 1413) 65.1 55.0- 65 .0 MM H Lab Interpretation (test code = 14326-8) Abnormal [facility] (TEG)2020-01-14 14:41:00* Test Item Value Reference Range Interpretation Comments TEG ACTIVATED CLOTTING TIME (BEAKER) (test code = 1407) 12.8 minute s 4.0-7.0 H TEG FIBRINOGEN ACTIVITY (BEAKER) (test code = 1408) 43.2 degrees 61 .0-73.0 L TEG PLT. AGGREGATION (BEAKER) (test code = 1409) 61.1 MM 55.0- 65.0 TGH ACTIVATED CLOTTING TIME (BEAKER) (test code = 1411) 6.9 minutes 4.0-7.0 TGH FIBRINOGEN ACTIVITY (BEAKER) (test code = 1412) 70.6 degrees 61 .0-73.0 TGH PLT. AGGREGATION (BEAKER) (test code = 1413) 65.1 MM 55.0- 65.0 H RAD, CHEST, 1 VIEW, NON [id number] 12:55:00Reason for exam:->endotracheal tube advancement Should this be performed at the bedside?->YesFINAL REPORT RAD, CHEST, 1 VIEW, NON DEPT INDICATION: endotracheal tube advancement COMPARISON: Prior day's exam FINDINGS: Portable frontal view of the chest. IMPRESSION: Support Lines: Endotracheal tube terminates 5 cm above the salomón. Enteric tube is stable. The left IJ catheter terminates at the junction of the brachiocephalic vein and SVC. Right IJ CVC has been removed. Lungs and pleura: Unchanged airspace and pleural opacities. No pneumothorax. Heart and mediastinum: Stable contours. Additional findings: None. Signed: Singh saba JR, Robert MDReport Verified Date/Time: 01/14/2020 12:55:48 Reading Lo cation: L[facility]IN [facility] Reading Room -GLUCOSE [id number] 12:42:00* Test Item Value Reference Range Interpretation Comments POC-GLUCOSE METER (BEAKER) (test code = 1538) 83 mg/dL 70-110 : TESTED AT [facility] [address] [facility] [place], [address]: Marketing Strategy Manager/Clinical Laboratory Technician ID = [id number] for Anne Gallagher (Setra) [id number] 12:36:00* Test Item Value Reference Range Interpretation Comments PARTIAL THROMBOPLASTIN TIME (BEAKER) (test code = 760) 37.2 seconds 22.5-36.0 H [id number] 10:26:00* Test Item Value Reference Range Interpretation Comments Lipase (test code = 3040-3) 47 U/L LOY (test code = LOY) Marketing Strategy Manager ID - DB Lab Interpretation (test code = 79345-6) Normal [facility]IP[facility]2020-08-07 10:26:00* Test Item Value Reference Range Interpretation Comments LIPASE (BEAKER) (test code = 749) 47 U/L Marketing Strategy Manager ID - DBHEPATIC FUNCTION [id number] 10:26:00* Test Item Value Reference Range Interpretation Comments TOTAL PROTEIN (BEAKER) (test code = 770) 6.9 gm/dL 6.0-8.3 Specimen slightly hemolyzed ALBUMIN (BEAKER) (test code = 1145) 2.9 g/dL 3.5-5.0 L Specimen slightly hemolyzed BILIRUBIN TOTAL (BEAKER) (test code = 377) 1.8 mg/dL 0.2-1.2 H Specimen slightly hemolyzed BILIRUBIN DIRECT (BEAKER) (test code = 706) 1.0 mg/dL 0.1-0.5 H Specimen slightly hemolyzed ALKALINE PHOSPHATASE (BEAKER) (test code = 346) 552 U/L 40-150 H AST (SGOT) (BEAKER) (test code = 353) 168 U/L 5-34 H Specimen slightly hemolyzed ALT (SGPT) (BEAKER) (test code = 347) 246 U/L 6-55 H Specimen slightly hemolyzed Marketing Strategy Manager ID - DBCSF culture + gram [id number] 08:33:00* Test Item Value Reference Range Interpretation Comments Result (test code = 6463-4) No growth Gram Stain Result (test code = 1123) No organisms seen [facility]AM [id number] 08:33:00* Test Item Value Reference Range Interpretation Comments CULTURE (BEAKER) (test code = 1095) No growth GRAM STAIN RESULT (BEAKER) (test code = 1123) <1+ WBCs GRAM STAIN RESULT (BEAKER) (test code = 85389) No organisms seen CBC W/PLT COUNT & AUTO [id number] 06:43:00* Test Item Value Reference Range Interpretation Comments WHITE BLOOD CELL COUNT (BEAKER) (test code = 775) 21.3 K/ L 3.5- 10.5 H RED BLOOD CELL COUNT (BEAKER) (test code = 761) 3.03 M/ L 4.63-6 .08 L HEMOGLOBIN (BEAKER) (test code = 410) 9.0 GM/DL 13.7-17.5 L HEMATOCRIT (BEAKER) (test code = 411) 28.3 % 40.1-51.0 L MEAN CORPUSCULAR VOLUME (BEAKER) (test code = 753) 93.4 fL 79. 0-92.2 H MEAN CORPUSCULAR HEMOGLOBIN (BEAKER) (test code = 751) 29.7 pg 25.7-32.2 MEAN CORPUSCULAR HEMOGLOBIN CONC (BEAKER) (test code = 752) 31.8 GM/DL 32.3-36.5 L RED CELL DISTRIBUTION WIDTH (BEAKER) (test code = 412) 18.1 % 11.6-14.4 H PLATELET COUNT (BEAKER) (test code = 756) 108 K/CU MM 150-450 L MEAN PLATELET VOLUME (BEAKER) (test code = 754) 11.7 fL 9.4-12 .4 NUCLEATED RED BLOOD CELLS (BEAKER) (test code = 413) 1 /100 WBC 0 -0 H (MANUAL DIFFERENTIAL)2020-01-14 06:43:00* Test Item Value Reference Range Interpretation Comments NEUTROPHILS - REL (DIFF) (BEAKER) (test code = 1359) 67 % LYMPHOCYTES - REL (DIFF) (BEAKER) (test code = 1360) 8 % MONOCYTES - REL (DIFF) (BEAKER) (test code = 1361) 9 % EOSINOPHILS - REL (DIFF) (BEAKER) (test code = 1362) 1 % METAMYELOCYTES-REL (DIFF) (BEAKER) (test code = 258) 1 % 0 -0 H MYELOCYTES-REL (DIFF) (BEAKER) (test code = 1594) 2 % 0-0 H BANDS - REL (DIFF) (BEAKER) (test code = 1348) 12 % 0-10 H NEUTROPHILS - ABS (DIFF) (BEAKER) (test code = 1365) 14.27 K/ L 1 .80-8.00 H LYMPHOCYTES - ABS (DIFF) (BEAKER) (test code = 1366) 1.70 K/ L 1 .48-4.50 MONOCYTES - ABS (DIFF) (BEAKER) (test code = 1367) 1.92 K/ L 0.0 0-1.30 H EOSINOPHILS - ABS (DIFF) (BEAKER) (test code = 1368) 0.21 K/ L 0 .00-0.50 METAMYELOCTYES - ABS (DIFF) (BEAKER) (test code = 261) 0.21 K/ L 0.00-0.00 H BANDS-ABS (DIFF) (BEAKER) (test code = 1349) 2.6 K/ L 0.0-0.8 H MYELOCYTES-ABS (DIFF) (BEAKER) (test code = 1593) 0.43 K/ L 0.00 -0.00 H TOTAL COUNTED (BEAKER) (test code = 1351) 100 BANDS + SEGMENTED NEUTROPHILS (BEAKER) (test code = 1352) 16.83 WBC MORPHOLOGY (BEAKER) (test code = 487) Normal PLT MORPHOLOGY (BEAKER) (test code = 486) Normal ANISOCYTOSIS (BEAKER) (test code = 961) 2+ moderate BASOPHILIC STIPPLING (BEAKER) (test code = 473) Present MACROCYTES (BEAKER) (test code = 964) 1+ few POLYCHROMATOPHILLIC RBCS(BEAKER) (test code = 478) 1+ few [id number] 06:08:00* Test Item Value Reference Range Interpretation Comments PARTIAL THROMBOPLASTIN TIME (BEAKER) (test code = 760) 44.1 seconds 22.5-36.0 H POCT-GLUCOSE [id number] 05:52:00* Test Item Value Reference Range Interpretation Comments POC-GLUCOSE METER (BEAKER) (test code = 1538) 94 mg/dL 70-110 : TESTED AT [address], [address]: Marketing Strategy Manager/Clinical Laboratory Technician ID = [id number] for DIANA NOGUERA VANCOMYCIN LEVEL, [id number] 03:54:00* Test Item Value Reference Range Interpretation Comments VANCOMYCIN RANDOM (BEAKER) (test code = 523) 26.2 ug/mL Reference Range: No NormalsOperator ID - [id number] 03:43:00* Test Item Value Reference Range Interpretation Comments PHOSPHORUS (BEAKER) (test code = 604) 2.7 mg/dL 2.3-4.7 Marketing Strategy Manager ID - [id number] 03:43:00* Test Item Value Reference Range Interpretation Comments MAGNESIUM (BEAKER) (test code = 627) 2.2 mg/dL 1.6-2.6 Marketing Strategy Manager ID - DBBASIC METABOLIC [id number] 03:43:00* Test Item Value Reference Range Interpretation Comments SODIUM (BEAKER) (test code = 381) 133 meq/L 136-145 L POTASSIUM (BEAKER) (test code = 379) 3.9 meq/L 3.5-5.1 CHLORIDE (BEAKER) (test code = 382) 103 meq/L 98-107 CO2 (BEAKER) (test code = 355) 25 meq/L 22-29 BLOOD UREA NITROGEN (BEAKER) (test code = 354) 22 mg/dL 7-21 H CREATININE (BEAKER) (test code = 358) 1.19 mg/dL 0.57-1.25 GLUCOSE RANDOM (BEAKER) (test code = 652) 97 mg/dL 70-105 CALCIUM (BEAKER) (test code = 697) 8.3 mg/dL 8.4-10.2 L EGFR (BEAKER) (test code = 1092) 63 mL/min/1.73 sq m ESTIMATED GFR IS NOT ACCURATE CREATININE CLEARANCE IN PREDICTING GLOMERULAR FILTRATION RATE. ESTIMATED GFR IS NOT APPLICABLE FOR DIALYSIS PATIENTS. Marketing Strategy Manager ID - DBBLOOD GAS, [id number] 03:32:00* Test Item Value Reference Range Interpretation Comments PH ARTERIAL (BEAKER) (test code = 383) 7.40 7.35-7.45 PCO2 ARTERIAL (BEAKER) (test code = 384) 44 mmHg 35-45 PO2 ARTERIAL (BEAKER) (test code = 385) 140 mmHg 80-90 H O2 SATURATION ARTERIAL (BEAKER) (test code = 386) 98.8 % 96.0 -97.0 H HCO3 ARTERIAL (BEAKER) (test code = 388) 26 mmol/L 21-29 BASE EXCESS ARTERIAL (BEAKER) (test code = 387) 1.0 mmol/L -2.0-3 .0 PATIENT TEMPERATURE (BEAKER) (test code = 1818) 37.0 C FIO2 (BEAKER) (test code = 1819) 50.0 % POCT-GLUCOSE [id number] 03:27:00* Test Item Value Reference Range Interpretation Comments POC-GLUCOSE METER (BEAKER) (test code = 1538) 91 mg/dL 70-110 : TESTED AT [address], [address]: Marketing Strategy Manager/Clinical Laboratory Technician ID = [id number] for DIANA NOGUERA POCT-GLUCOSE [id number] 01:46:00* Test Item Value Reference Range Interpretation Comments POC-GLUCOSE METER (BEAKER) (test code = 1538) 108 mg/dL 70-110 : TESTED AT [address], [address]: Marketing Strategy Manager/Clinical Laboratory Technician ID = [id number] for MONA DELATORRE POCT-GLUCOSE [id number] 00:26:00* Test Item Value Reference Range Interpretation Comments POC-GLUCOSE METER (BEAKER) (test code = 1538) 75 mg/dL 70-110 : TESTED AT [address], [address]: Marketing Strategy Manager/Clinical Laboratory Technician ID = [id number] for DIANA NOGUERA [id number] 22:15:00* Test Item Value Reference Range Interpretation Comments PHOSPHORUS (BEAKER) (test code = 604) 2.7 mg/dL 2.3-4.7 Marketing Strategy Manager ID - [id number] 22:15:00* Test Item Value Reference Range Interpretation Comments MAGNESIUM (BEAKER) (test code = 627) 1.9 mg/dL 1.6-2.6 Marketing Strategy Manager ID - LABASIC METABOLIC [id number] 22:15:00* Test Item Value Reference Range Interpretation Comments SODIUM (BEAKER) (test code = 381) 133 meq/L 136-145 L POTASSIUM (BEAKER) (test code = 379) 3.1 meq/L 3.5-5.1 L CHLORIDE (BEAKER) (test code = 382) 102 meq/L 98-107 CO2 (BEAKER) (test code = 355) 24 meq/L 22-29 BLOOD UREA NITROGEN (BEAKER) (test code = 354) 23 mg/dL 7-21 H CREATININE (BEAKER) (test code = 358) 1.20 mg/dL 0.57-1.25 GLUCOSE RANDOM (BEAKER) (test code = 652) 108 mg/dL 70-105 H CALCIUM (BEAKER) (test code = 697) 8.4 mg/dL 8.4-10.2 EGFR (BEAKER) (test code = 1092) 63 mL/min/1.73 sq m ESTIMATED GFR IS NOT ACCURATE CREATININE CLEARANCE IN PREDICTING GLOMERULAR FILTRATION RATE. ESTIMATED GFR IS NOT APPLICABLE FOR DIALYSIS PATIENTS. Marketing Strategy Manager ID - LACALCIUM, [id number] 21:51:00* Test Item Value Reference Range Interpretation Comments CALCIUM IONIZED (BEAKER) (test code = 698) 1.11 mmol/L 1.12-1.27 L PH, BLOOD (BEAKER) (test code = 1810) 7.43 RAD, CHEST, 1 VIEW, NON [id number] 20:31:00Reason for exam:->left internal jugular trialysis catheter placement Should this be performed at the bedside?-> YesFINAL REPORT AP chest dated 01/13/2020 COMPARISON: 01/12/2020 Comment: Since prior examination, there is interval placement of a left IJ central venous catheter with the tip seen in the superior vena cava. No pneumothorax is noted. No other changes are seen in the chest. Signed: Gi Shaver MDReport Verified Date/Time: 01/13/2020 20:31:05 Reading Location: [facility] B1 [id number] Consult Reading Room Insert Arterial [id number] 19:03:26Marii Arriaga NP 01/13/2020 7:05 PMInsert Arterial LineDate/Time: 01/13/2020 7:03 PMPerformed by: Marii Arriaga NPAuthorized by: Marii Arriaga NP Consent: Verbal consent obtained.Risks and benefits: risks, benefits and alternatives were discussedConsent given by: spouseProcedure consent: procedure consent matches procedure scheduledRelevant documents: relevant doc uments present and verifiedPatient identity confirmed: arm band, provided demogr aphic data and hospital-assigned identification numberTime out: Immediately prio r to procedure a "time out" was called to verify the correct patient, procedure, equipment, 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 support operations 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 and site/side marked as required.Preparation: Patient was prepped and draped in the usual sterile fashion.Indications: multiple ABGs, respiratory failure and hemodynamic monitoringLocation: left radial Sedation:Pat ient sedated: yes Dom's test normal: yesNeedle gauge: 18Seldinger technique: S eldinger technique usedNumber of attempts: 1Post-procedure: line sutured and mindy ssing appliedPost-procedure CMS: normal and unchangedPatient tolerance: Patient tolerated the procedure well with no immediate complications [facility])2020-01-13 17:56:00* Test Item Value Reference Range Interpretation Comments LISTERIA MONOCYTOGENES (test code = 62824-4) Not detected Not detec dio STAPHYLOCOCCUS (test code = 95182-0) Not detected Not detected STAPHYLOCOCCUS AUREUS (test code = 02268-3) Not detected Not detect ed Streptococcus (test code = 84824-2) Not detected Not detected STREPTOCOCCUS AGALACTIAE (GROUP B) (test code = 87746-2) Not detected Not detected STREPTOCOCCUS PNEUMONIAE (test code = 86737-4) Not detected Not det ected Streptococcus pyogenes (Group A) (test code = 31802-1) Not d etected Not detected ACINETOBACTER BAUMANNII (test code = 63139-2) Not detected Not dete cted HAEMOPHILUS INFLUENZAE (test code = 27189-8) Not detected Not detec dio NEISSERIA MENINGITIDIS (test code = 03262-8) Not detected Not detec dio ENTEROBACTERIACEAE (test code = 83655-4) Not detected Not detected ENTEROBACTER CLOACOE COMPLEX (test code = 29603-5) Not detected Not detected KLEBSIELLA OXYTOCA (test code = 96444-7) Not detected Not detected KLEBSIELLA PNEUMONIAE (test code = 74082-6) Not detected Not detect ed PROTEUS (test code = 87098-4) Not detected Not detected SERRATIA MARCESCENS (test code = 90070-4) Not detected Not detected ERIKA ALBICANS (test code = 73834-2) Not detected Not detected ERIKA GLABRATA (test code = 88935-1) Not detected Not detected ERIKA KRUSEI (test code = 78937-1) Not detected Not detected ERIKA PARAPSILOSIS (test code = 44092-9) Not detected Not detecte d ERIKA TROPICALIS (test code = 57441-5) Not detected Not detected ESCHERICHIA COLI (test code = 73302-9) Not detected Not detected METHICILLIN-RESISTANCE GENE (test code = 27702-0) VANCOMYCIN-RESISTANCE GENE (test code = 92222-7) CARBAPENEM-RESISTANCE GENE (test code = 49329-3) ENTEROCOCCUS (test code = 08589-4) Not detected Not detected PSEUDOMONAS AERUGINOSA (test code = 43781-0) Not detected Not detec dio LOY (test code = LOY) Other bacteria and resistanc e markers not targeted by this PCR panel cannot be excluded; therefore clinical correlation and follow up of serology, culture results, and other molecular studies is required. The results are not intended to be used as the sole means for clinical diagnosis or patient management decisions. This sample was tested at the [facility] Molecular Diagnostics Laboratory using the Seeder Blood Culture ID Panel. It is FDA cleared and has been verified and approved by the [facility] Molecular Diagnostics Laboratory for clinical use. This laboratory is CLIA-certified and [employer] ([employer])-accredited to perform high complexity testing. [facility] [id number] 17:56:00* Test Item Value Reference Range Interpretation Comments LISTERIA MONOCYTOGENES (test code = 9583841) Not detected Not detec dio STAPHYLOCOCCUS (test code = 6273161) Not detected Not detected STAPHYLOCOCCUS AUREUS (test code = 6805254) Not detected Not detect ed STREPTOCOCCUS (test code = 9846641) Not detected Not detected STREPTOCOCCUS AGALACTIAE (GROUP B) (test code = 1369643) Not detected Not detected STREPTOCOCCUS PNEUMONIAE (test code = 6078536) Not detected Not det ected STREPTOCOCCUS PYOGENES (GROUP A) (test code = 6877589) Not d etected Not detected ACINETOBACTER BAUMANNII (test code = 2361158) Not detected Not dete cted HAEMOPHILUS INFLUENZAE (test code = 2713522) Not detected Not detec dio NEISSERIA MENINGITIDIS (test code = 0531895) Not detected Not detec dio ENTEROBACTERIACEAE (test code = 0605182) Not detected Not detected ENTEROBACTER CLOACOE COMPLEX (test code = 3271624) Not detected Not detected KLEBSIELLA OXYTOCA (test code = 2153129) Not detected Not detected KLEBSIELLA PNEUMONIAE (test code = 1650) Not detected Not detected PROTEUS (test code = 7811967) Not detected Not detected SERRATIA MARCESCENS (test code = 9552627) Not detected Not detected ERIKA ALBICANS (test code = 4115965) Not detected Not detected ERIKA GLABRATA (test code = 3695946) Not detected Not detected ERIKA KRUSEI (test code = 2931210) Not detected Not detected ERIKA PARAPSILOSIS (test code = 2759417) Not detected Not detecte d ERIKA TROPICALIS (test code = 7247051) Not detected Not detected ESCHERICHIA COLI (test code = 1099897) Not detected Not detected METHICILLIN-RESISTANCE GENE (test code = 9326823) VANCOMYCIN-RESISTANCE GENE (test code = 9727436) CARBAPENEM-RESISTANCE GENE (test code = 3042239) ENTEROCOCCUS-BEAKER (test code = 1103671) Not detected Not detected PSEUDOMONAS AERUGINOSA-BEAKER (test code = 4976387) Not detected No t detected Other bacteria and resistance markers not targeted by this PCR panel cannot be e xcluded; therefore clinical correlation and follow up of serology, culture resul ts, and other molecular studies is required. The results are not intended to be used as the sole means for clinical diagnosis or patient management decisions. T his sample was tested at the [facility] Molecular Diagnostics Laboratory using the OnMyBlockArray Blood Culture ID Panel. It is FDA cleared and has been verified and approved by the [facility] Molecular Diagnostics Laboratory for clinical use. Thi s laboratory is CLIA-certified and [employer] ([employer])-accred ited to perform high complexity testing.[id number] 17:30:00* Test Item Value Reference Range Interpretation Comments PHOSPHORUS (BEAKER) (test code = 604) 2.3 mg/dL 2.3-4.7 Marketing Strategy Manager ID - [id number] 17:30:00* Test Item Value Reference Range Interpretation Comments MAGNESIUM (BEAKER) (test code = 627) 1.9 mg/dL 1.6-2.6 Marketing Strategy Manager ID - DBBLOOD GAS, [id number] 17:13:00* Test Item Value Reference Range Interpretation Comments PH ARTERIAL (BEAKER) (test code = 383) 7.44 7.35-7.45 PCO2 ARTERIAL (BEAKER) (test code = 384) 42 mmHg 35-45 PO2 ARTERIAL (BEAKER) (test code = 385) 56 mmHg 80-90 L O2 SATURATION ARTERIAL (BEAKER) (test code = 386) 90.9 % 96.0 -97.0 L HCO3 ARTERIAL (BEAKER) (test code = 388) 28 mmol/L 21-29 BASE EXCESS ARTERIAL (BEAKER) (test code = 387) 3.3 mmol/L -2.0-3 .0 H PATIENT TEMPERATURE (BEAKER) (test code = 1818) 36.5 C FIO2 (BEAKER) (test code = 1819) 100.0 % CBC W/PLT COUNT & AUTO [id number] 11:28:00* Test Item Value Reference Range Interpretation Comments WHITE BLOOD CELL COUNT (BEAKER) (test code = 775) 20.5 K/ L 3.5- 10.5 H RED BLOOD CELL COUNT (BEAKER) (test code = 761) 3.10 M/ L 4.63-6 .08 L HEMOGLOBIN (BEAKER) (test code = 410) 9.4 GM/DL 13.7-17.5 L HEMATOCRIT (BEAKER) (test code = 411) 29.1 % 40.1-51.0 L MEAN CORPUSCULAR VOLUME (BEAKER) (test code = 753) 93.9 fL 79. 0-92.2 H MEAN CORPUSCULAR HEMOGLOBIN (BEAKER) (test code = 751) 30.3 pg 25.7-32.2 MEAN CORPUSCULAR HEMOGLOBIN CONC (BEAKER) (test code = 752) 32.3 GM/DL 32.3-36.5 RED CELL DISTRIBUTION WIDTH (BEAKER) (test code = 412) 17.9 % 11.6-14.4 H PLATELET COUNT (BEAKER) (test code = 756) 128 K/CU MM 150-450 L Discordant PLT results compared to previous results; clinical correlation required. MEAN PLATELET VOLUME (BEAKER) (test code = 754) 12.5 fL 9.4-12 .4 H NUCLEATED RED BLOOD CELLS (BEAKER) (test code = 413) 1 /100 WBC 0 -0 H (CELLAVISION MANUAL DIFF)2020-01-13 11:28:00* Test Item Value Reference Range Interpretation Comments NEUTROPHILS - REL (CELLAVISION)(BEAKER) (test code = 2816) 79 % LYMPHOCYTES - REL (CELLAVISION)(BEAKER) (test code = 2817) 6 % MONOCYTES - REL (CELLAVISION)(BEAKER) (test code = 2818) 2 % EOSINOPHILS - REL (CELLAVISION)(BEAKER) (test code = 2819) 1 % METAMYELOCYTES - REL (CELLAVISION)(BEAKER) (test code = 2821) 4 % 0-0 H MYELOCYTES - REL (CELLAVISION)(BEAKER) (test code = 2822) 4 % 0-0 H BANDS - REL (CELLAVISION)(BEAKER) (test code = 2826) 4 % 0 -10 NEUTROPHILS - ABS (CELLAVISION)(BEAKER) (test code = 2830) 16.20 K/ul 1.78-5.38 H LYMPHOCYTES - ABS (CELLAVISION)(BEAKER) (test code = 2831) 1.23 K/ul 1.32-3.57 L MONOCYTES - ABS (CELLAVISION)(BEAKER) (test code = 2832) 0.41 K/uL 0.30-0.82 EOSINOPHILS - ABS (CELLAVISION)(BEAKER) (test code = 2834) 0.21 K/uL 0.04-0.54 METAMYELOCYTES - ABS (CELLAVISION)(BEAKER) (test code = 2836 ) 0.82 K/uL 0.00-0.00 H MYELOCYTES-ABS (CELLAVISION)(BEAKER) (test code = 2837) 0.82 K/uL 0.00-0.00 H BANDS - ABS (CELLAVISION)(BEAKER) (test code = 2840) 0.82 K/uL 0 .00-0.80 H TOTAL COUNTED (BEAKER) (test code = 1351) 100 MANUAL NRBC PER 100 CELLS (BEAKER) (test code = 1353) 1 /100 WBC 0-0 H WBC MORPHOLOGY (BEAKER) (test code = 487) Normal PLT MORPHOLOGY (BEAKER) (test code = 486) Normal POLYCHROMATOPHILLIC RBCS(BEAKER) (test code = 478) 1+ few ANISOCYTOSIS (BEAKER) (test code = 961) 1+ few MICROCYTES (BEAKER) (test code = 965) 1+ few POIKILOCYTES (BEAKER) (test code = 966) 3+ many SPHEROCYTES (BEAKER) (test code = 768) 1+ few ACANTHOCYTES (BEAKER) (test code = 471) 3+ many BASOPHILIC STIPPLING (BEAKER) (test code = 473) Present ARTIFACT (CELLAVISION)(BEAKER) (test code = 3432) Present PLATELET CONCENTRATION (CELLAVISION)(BEAKER) (test code = 3438) Dec reased Marketing Strategy Manager ID - Chacha Flores comments: Slide comments: POCT-GLUCOSE METER 2020-01-13 11:20:00* Test Item Value Reference Range Interpretation Comments POC-GLUCOSE METER (BEAKER) (test code = 1538) 152 mg/dL 70-110 H : TESTED AT [address], [address]: Marketing Strategy Manager/Clinical Laboratory Technician ID = [id number] for YOSI ECHOLS BASIC METABOLIC [id number] 06:22:00* Test Item Value Reference Range Interpretation Comments SODIUM (BEAKER) (test code = 381) 133 meq/L 136-145 L POTASSIUM (BEAKER) (test code = 379) 3.7 meq/L 3.5-5.1 Specimen slightly hemolyzed CHLORIDE (BEAKER) (test code = 382) 100 meq/L 98-107 CO2 (BEAKER) (test code = 355) 25 meq/L 22-29 BLOOD UREA NITROGEN (BEAKER) (test code = 354) 23 mg/dL 7-21 H CREATININE (BEAKER) (test code = 358) 0.90 mg/dL 0.57-1.25 Specimen slightly hemolyzed GLUCOSE RANDOM (BEAKER) (test code = 652) 150 mg/dL 70-105 H CALCIUM (BEAKER) (test code = 697) 8.5 mg/dL 8.4-10.2 EGFR (BEAKER) (test code = 1092) 88 mL/min/1.73 sq m ESTIMATED GFR IS NOT ACCURATE CREATININE CLEARANCE IN PREDICTING GLOMERULAR FILTRATION RATE. ESTIMATED GFR IS NOT APPLICABLE FOR DIALYSIS PATIENTS. Marketing Strategy Manager ID - [id number] 03:55:00* Test Item Value Reference Range Interpretation Comments MAGNESIUM (BEAKER) (test code = 627) 1.9 mg/dL 1.6-2.6 Specimen slightly hemolyzed Marketing Strategy Manager ID - [id number] 03:55:00* Test Item Value Reference Range Interpretation Comments PHOSPHORUS (BEAKER) (test code = 604) 3.3 mg/dL 2.3-4.7 Specimen slightly hemolyzed Marketing Strategy Manager ID - [id number] 03:55:00* Test Item Value Reference Range Interpretation Comments CALCIUM (BEAKER) (test code = 697) 8.5 mg/dL 8.4-10.2 Marketing Strategy Manager ID - [id number] 03:21:00* Test Item Value Reference Range Interpretation Comments PARTIAL THROMBOPLASTIN TIME (BEAKER) (test code = 760) 49.4 seconds 22.5-36.0 H BLOOD GAS, [id number] 02:59:00* Test Item Value Reference Range Interpretation Comments PH ARTERIAL (BEAKER) (test code = 383) 7.40 7.35-7.45 PCO2 ARTERIAL (BEAKER) (test code = 384) 48 mmHg 35-45 H PO2 ARTERIAL (BEAKER) (test code = 385) 115 mmHg 80-90 H O2 SATURATION ARTERIAL (BEAKER) (test code = 386) 98.2 % 96.0 -97.0 H HCO3 ARTERIAL (BEAKER) (test code = 388) 29 mmol/L 21-29 BASE EXCESS ARTERIAL (BEAKER) (test code = 387) 3.5 mmol/L -2.0-3 .0 H PATIENT TEMPERATURE (BEAKER) (test code = 1818) 36.9 C FIO2 (BEAKER) (test code = 1819) 50.0 % POCT-GLUCOSE [id number] 22:01:00* Test Item Value Reference Range Interpretation Comments POC-GLUCOSE METER (BEAKER) (test code = 1538) 163 mg/dL 70-110 H : TESTED AT [facility] [address] [facility] [place], [address]: Marketing Strategy Manager/Clinical Laboratory Technician ID = [id number] for LETICIA SAHIL BASIC METABOLIC [id number] 19:51:00* Test Item Value Reference Range Interpretation Comments SODIUM (BEAKER) (test code = 381) 132 meq/L 136-145 L POTASSIUM (BEAKER) (test code = 379) 3.8 meq/L 3.5-5.1 Specimen slightly hemolyzed CHLORIDE (BEAKER) (test code = 382) 101 meq/L 98-107 CO2 (BEAKER) (test code = 355) 23 meq/L 22-29 BLOOD UREA NITROGEN (BEAKER) (test code = 354) 25 mg/dL 7-21 H CREATININE (BEAKER) (test code = 358) 0.85 mg/dL 0.57-1.25 Specimen slightly hemolyzed GLUCOSE RANDOM (BEAKER) (test code = 652) 115 mg/dL 70-105 H CALCIUM (BEAKER) (test code = 697) 8.5 mg/dL 8.4-10.2 EGFR (BEAKER) (test code = 1092) 94 mL/min/1.73 sq m ESTIMATED GFR IS NOT ACCURATE CREATININE CLEARANCE IN PREDICTING GLOMERULAR FILTRATION RATE. ESTIMATED GFR IS NOT APPLICABLE FOR DIALYSIS PATIENTS. Marketing Strategy Manager ID - ASBLOOD GAS, [id number] 16:59:00* Test Item Value Reference Range Interpretation Comments PH ARTERIAL (BEAKER) (test code = 383) 7.39 7.35-7.45 PCO2 ARTERIAL (BEAKER) (test code = 384) 47 mmHg 35-45 H PO2 ARTERIAL (BEAKER) (test code = 385) 154 mmHg 80-90 H O2 SATURATION ARTERIAL (BEAKER) (test code = 386) 98.9 % 96.0 -97.0 H HCO3 ARTERIAL (BEAKER) (test code = 388) 28 mmol/L 21-29 BASE EXCESS ARTERIAL (BEAKER) (test code = 387) 2.8 mmol/L -2.0-3 .0 PATIENT TEMPERATURE (BEAKER) (test code = 1818) 37.2 C FIO2 (BEAKER) (test code = 1819) 50.0 % [id number] 16:56:00* Test Item Value Reference Range Interpretation Comments MAGNESIUM (BEAKER) (test code = 627) 2.0 mg/dL 1.6-2.6 Specimen slightly hemolyzed Marketing Strategy Manager ID - [id number] 16:56:00* Test Item Value Reference Range Interpretation Comments PHOSPHORUS (BEAKER) (test code = 604) 2.7 mg/dL 2.3-4.7 Specimen slightly hemolyzed Marketing Strategy Manager ID - [id number] 16:48:00* Test Item Value Reference Range Interpretation Comments PARTIAL THROMBOPLASTIN TIME (BEAKER) (test code = 760) 44.7 seconds 22.5-36.0 H 4 hours after the start of continuous infusion and 4 hours after any rate change POCT-GLUCOSE [id number] 14:07:00* Test Item Value Reference Range Interpretation Comments POC-GLUCOSE METER (BEAKER) (test code = 1538) 89 mg/dL 70-110 : TESTED AT [facility] [address] [place], [address]: Marketing Strategy Manager/Clinical Laboratory Technician ID = [id number] for SAHIL KELLY RAD, CHEST, 1 VIEW, NON [id number] 10:07:00Reason for exam:->for spesis work up 2/2 to PNAFINAL REPORT RAD, CHEST, 1 VIEW, NON DEPT INDICATION: for spesis work up 2/2 to PNA COMPARISON: Prior day's exam FINDINGS: Portable frontal view of the chest. IMPRESSION: Support Lines: Stable. Lungs and pleura: Unchanged interstitialopacities. No pneumothorax.Heart and mediastinum: Stable contours. Additional findings: None. Signed: JR Wu Robert MDReport Verified Date/Time: 01/12/2020 10:07:53 Reading Location: [facility] Radiology Reading Room W/PLT COUNT & AUTO DIFFERENTIAL 2020-01-12 09:17:00* Test Item Value Reference Range Interpretation Comments WHITE BLOOD CELL COUNT (BEAKER) (test code = 775) 15.7 K/ L 3.5- 10.5 H RED BLOOD CELL COUNT (BEAKER) (test code = 761) 2.85 M/ L 4.63-6 .08 L HEMOGLOBIN (BEAKER) (test code = 410) 8.6 GM/DL 13.7-17.5 L HEMATOCRIT (BEAKER) (test code = 411) 27.4 % 40.1-51.0 L MEAN CORPUSCULAR VOLUME (BEAKER) (test code = 753) 96.1 fL 79. 0-92.2 H MEAN CORPUSCULAR HEMOGLOBIN (BEAKER) (test code = 751) 30.2 pg 25.7-32.2 MEAN CORPUSCULAR HEMOGLOBIN CONC (BEAKER) (test code = 752) 31.4 GM/DL 32.3-36.5 L RED CELL DISTRIBUTION WIDTH (BEAKER) (test code = 412) 18.0 % 11.6-14.4 H PLATELET COUNT (BEAKER) (test code = 756) 78 K/CU MM 150-450 L MEAN PLATELET VOLUME (BEAKER) (test code = 754) 12.6 fL 9.4-12 .4 H NUCLEATED RED BLOOD CELLS (BEAKER) (test code = 413) 1 /100 WBC 0 -0 H (CELLAVISION MANUAL DIFF)2020-01-12 09:17:00* Test Item Value Reference Range Interpretation Comments NEUTROPHILS - REL (CELLAVISION)(BEAKER) (test code = 2816) 77 % LYMPHOCYTES - REL (CELLAVISION)(BEAKER) (test code = 2817) 2 % MONOCYTES - REL (CELLAVISION)(BEAKER) (test code = 2818) 6 % EOSINOPHILS - REL (CELLAVISION)(BEAKER) (test code = 2819) 1 % METAMYELOCYTES - REL (CELLAVISION)(BEAKER) (test code = 2821) 5 % 0-0 H MYELOCYTES - REL (CELLAVISION)(BEAKER) (test code = 2822) 4 % 0-0 H PROMYELOCYTES - REL (CELLAVSION)(BEAKER) (test code = 2825) 1 % 0-0 H BANDS - REL (CELLAVISION)(BEAKER) (test code = 2826) 2 % 0 -10 ATYPICAL LYMPHOCYTES - REL (CELLAVISION)(BEAKER) (test code = 2829) 1 % 0-0 H NEUTROPHILS - ABS (CELLAVISION)(BEAKER) (test code = 2830) 12.09 K/ul 1.78-5.38 H LYMPHOCYTES - ABS (CELLAVISION)(BEAKER) (test code = 2831) 0.31 K/ul 1.32-3.57 L MONOCYTES - ABS (CELLAVISION)(BEAKER) (test code = 2832) 0.94 K/uL 0.30-0.82 H EOSINOPHILS - ABS (CELLAVISION)(BEAKER) (test code = 2834) 0.16 K/uL 0.04-0.54 METAMYELOCYTES - ABS (CELLAVISION)(BEAKER) (test code = 2836 ) 0.79 K/uL 0.00-0.00 H MYELOCYTES-ABS (CELLAVISION)(BEAKER) (test code = 2837) 0.63 K/uL 0.00-0.00 H PROMYELOCYTES - ABS (CELLAVISION)(BEAKER) (test code = 2838) 0.16 K/uL 0.00-0.00 H BANDS - ABS (CELLAVISION)(BEAKER) (test code = 2840) 0.31 K/uL 0 .00-0.80 ATYPICAL LYMPHOCYTES - ABS (CELLAVISION)(BEAKER) (test code = 2858) 0.16 K/uL 0.00-0.00 H TOTAL COUNTED (BEAKER) (test code = 1351) 100 MANUAL NRBC PER 100 CELLS (BEAKER) (test code = 1353) 1 /100 WBC 0-0 H WBC MORPHOLOGY (BEAKER) (test code = 487) Normal GIANT PLATELETS (BEAKER) (test code = 313) Present LARGE PLT(BEAKER) (test code = 2156) Present POLYCHROMATOPHILLIC RBCS(BEAKER) (test code = 478) 3+ many HYPOCHROMIA (BEAKER) (test code = 963) 2+ moderate ANISOCYTOSIS (BEAKER) (test code = 961) 2+ moderate MICROCYTES (BEAKER) (test code = 965) 2+ moderate POIKILOCYTES (BEAKER) (test code = 966) 2+ moderate SPHEROCYTES (BEAKER) (test code = 768) 2+ moderate ELLIPTOCYTES (BEAKER) (test code = 962) 2+ moderate OVALOCYTES (BEAKER) (test code = 477) 2+ moderate TEAR DROP CELLS (BEAKER) (test code = 481) 1+ few BASOPHILIC STIPPLING (BEAKER) (test code = 473) Present ARTIFACT (CELLAVISION)(BEAKER) (test code = 6842) Present PLATELET CONCENTRATION (CELLAVISION)(BEAKER) (test code = 3438) Dec reased Marketing Strategy Manager ID - Ryann Olson comments: Slide comments: WBC: SEGMENTED WI TH TOXIC GRANULATIONS PRESENTPOCT-GLUCOSE [id number] 06:10:00* Test Item Value Reference Range Interpretation Comments POC-GLUCOSE METER (BEAKER) (test code = 1538) 233 mg/dL 70-110 H : TESTED AT [facility] [address] [facility] [place], [address]: Marketing Strategy Manager/Clinical Laboratory Technician ID = [id number] for LIZZY, SENORA BLOOD GAS, [id number] 05:17:00* Test Item Value Reference Range Interpretation Comments PH ARTERIAL (BEAKER) (test code = 383) 7.30 7.35-7.45 L PCO2 ARTERIAL (BEAKER) (test code = 384) 58 mmHg 35-45 H PO2 ARTERIAL (BEAKER) (test code = 385) 131 mmHg 80-90 H O2 SATURATION ARTERIAL (BEAKER) (test code = 386) 98.3 % 96.0 -97.0 H HCO3 ARTERIAL (BEAKER) (test code = 388) 28 mmol/L 21-29 BASE EXCESS ARTERIAL (BEAKER) (test code = 387) 0.6 mmol/L -2.0-3 .0 PATIENT TEMPERATURE (BEAKER) (test code = 1818) 37.0 C FIO2 (BEAKER) (test code = 1819) 50.0 % CALCIUM, [id number] 05:16:00* Test Item Value Reference Range Interpretation Comments CALCIUM IONIZED (BEAKER) (test code = 698) 1.14 mmol/L 1.12-1.27 PH, BLOOD (BEAKER) (test code = 1810) 7.30 [id number] 05:10:00* Test Item Value Reference Range Interpretation Comments Procalcitonin (test code = 67790-5) 0.61 ng/mL <0.05 H LOY (test code = LOY) SEPSIS RISK (ng/mL)Low: 0.05-0.50Intermediate: 0.51-2.00High: >=2.01 Lab Interpretation (test code = 36316-2) [id number] 05:10:00* Test Item Value Reference Range Interpretation Comments PROCALCITONIN (BEAKER) (test code = 3036) 0.61 ng/mL <0.05 H SEPSIS RISK (ng/mL)Low: 0.05-0.50Intermediate: 0.51-2.00High: > =2.05Bcaewkhv2172-09-16 05:08:00* Test Item Value Reference Range Interpretation Comments Ferritin (test code = 2276-4) 1417.97 ng/mL 5-275 H LOY (test code = LOY) Marketing Strategy Manager ID - EDASI Lab Interpretation (test code = 33032-1) [facility] 05:08:[facility]* Test Item Value Reference Range Interpretation Comments FERRITIN (BEAKER) (test code = 361) 1417.97 ng/mL 5.00-275.00 H Marketing Strategy Manager ID - TRESAASILactate dehydrogenase (LDH)2020-01-12 05:07:00* Test Item Value Reference Range Interpretation Comments LDH (test code = 2532-0) 492 U/L 125-220 H LOY (test code = LOY) Marketing Strategy Manager ID - IVELISSE W Lab Interpretation (test code = 04253-4) [facility]normal [facility]active [id number] 05:07:00* Test Item Value Reference Range Interpretation Comments CRP (test code = 676) 1.88 mg/dL 0-0.5 H LOY (test code = LOY) Marketing Strategy Manager ID - IVELISSE W Lab Interpretation (test code = 22173-3) [facility]normal [facility] Center[facility]US2020-08-05 05:07:00* Test Item Value Reference Range Interpretation Comments PHOSPHORUS (BEAKER) (test code = 604) 3.5 mg/dL 2.3-4.7 Marketing Strategy Manager ID - IVELISSE [id number] 05:07:00* Test Item Value Reference Range Interpretation Comments MAGNESIUM (BEAKER) (test code = 627) 2.1 mg/dL 1.6-2.6 Marketing Strategy Manager ID - IVELISSE WBASIC METABOLIC [id number] 05:07:00* Test Item Value Reference Range Interpretation Comments SODIUM (BEAKER) (test code = 381) 132 meq/L 136-145 L POTASSIUM (BEAKER) (test code = 379) 3.9 meq/L 3.5-5.1 CHLORIDE (BEAKER) (test code = 382) 99 meq/L 98-107 CO2 (BEAKER) (test code = 355) 26 meq/L 22-29 BLOOD UREA NITROGEN (BEAKER) (test code = 354) 31 mg/dL 7-21 H CREATININE (BEAKER) (test code = 358) 0.97 mg/dL 0.57-1.25 GLUCOSE RANDOM (BEAKER) (test code = 652) 235 mg/dL 70-105 H CALCIUM (BEAKER) (test code = 697) 8.2 mg/dL 8.4-10.2 L EGFR (BEAKER) (test code = 1092) 80 mL/min/1.73 sq m ESTIMATED GFR IS NOT ACCURATE CREATININE CLEARANCE IN PREDICTING GLOMERULAR FILTRATION RATE. ESTIMATED GFR IS NOT APPLICABLE FOR DIALYSIS PATIENTS. Marketing Strategy Manager ID Monisha OVIEDO WLACTATE DEHYDROGENASE (LDH)2020-01-12 05:07:00* Test Item Value Reference Range Interpretation Comments LACTATE DEHYDROGENASE (BEAKER) (test code = 635) 492 U/L 125-2 20 H Marketing Strategy Manager ANGELINA Monisha OVIEDO WC-REACTIVE [id number] 05:07:00* Test Item Value Reference Range Interpretation Comments C-REACTIVE PROTEIN (BEAKER) (test code = 676) 1.88 mg/dL 0.00-0.5 0 H Marketing Strategy Manager ID Monisha OVIEDO [id number] 03:11:00* Test Item Value Reference Range Interpretation Comments PARTIAL THROMBOPLASTIN TIME (BEAKER) (test code = 760) 40.5 seconds 22.5-36.0 H BLOOD [id number] 03:00:00* Test Item Value Reference Range Interpretation Comments CULTURE (BEAKER) (test code = 1095) No growth in 5 days POCT-GLUCOSE [id number] 00:18:00* Test Item Value Reference Range Interpretation Comments POC-GLUCOSE METER (BEAKER) (test code = 1538) 150 mg/dL 70-110 H : TESTED AT [address], [address]: Marketing Strategy Manager/Clinical Laboratory Technician ID = [id number] for JODIE BALL [id number] 21:31:00* Test Item Value Reference Range Interpretation Comments PARTIAL THROMBOPLASTIN TIME (BEAKER) (test code = 760) 25.8 seconds 22.5-36.0 BLOOD [id number] 21:00:00* Test Item Value Reference Range Interpretation Comments CULTURE (BEAKER) (test code = 1095) No growth in 5 days MENINGITIS/ENCEPHALITIS [id number] 19:56:00* Test Item Value Reference Range Interpretation Comments E COLI K1 (test code = 22557-9) Not detected Not detected HAEMOPHILUS INFLUENZAE (test code = 44691-3) Not detected Not detec dio LISTERIA MONOCYTOGENES (test code = 81989-1) Not detected Not detec dio NEISSERIA MENINGITIDIS (test code = 18748-1) Not detected Not detec dio STREPTOCOCCUS AGALACTIAE (test code = 92254-4) Not detected Not det ected STREPTOCOCCUS PNEUMONIAE (test code = 97883-3) Not detected Not det ected Cytomegalovirus (CMV) (test code = 84902-7) Not detected Not detect ed ENTEROVIRUS (test code = 46225-7) Not detected Not detected Human herpesvirus 6 (HHV-6) (test code = 67647-9) Not detected Not detected Herpes simplex virus 1(HSV-1) (test code = 90919-9) Not detected No t detected HERPES SIMPLEX VIRUS 2(HSV-2) (test code = 99907-1) Not detected No t detected Human parechovirus (test code = 15831-6) Not detected Not detected Varicella-zoster virus (VZV) (test code = 67003-6) Not detected Not detected Cryptococcus neoformans/gattii (test code = 15905-9) Not detecte d Not detected LOY (test code = LOY) The performance of this test has not been specifically evaluated for CSF specimens from immunocompromised individuals. The effect of antibiotic treatment on test performance has not been evaluated. Other viruses and bacteria not targeted by this PCR panel cannot be excluded; therefore, clinical correlation and follow up of serology, culture results, and other molecular studies may be required. This sample was tested at the [facility] Molecular Diagnostics Laboratory using the TrufflsArray Meningitis Encephalitis Panel. It is FDA cleared and has been verified and approved by the [facility] Molecular Diagnostics Laboratory for clinical use. This laboratory is CLIA- certified and [employer] ([employer])-accredited to perform high complexity testing. Lab Interpretation (test code = 31522-8) [facility] [id number] 19:56:00* Test Item Value Reference Range Interpretation Comments ESCHERICHIA COLI K1 (test code = 2862495) Not detected Not detected HAEMOPHILUS INFLUENZAE (test code = 4640742) Not detected Not detec dio LISTERIA MONOCYTOGENES (test code = 4706166) Not detected Not detec dio NEISSERIA MENINGITIDIS (test code = 2616891) Not detected Not detec dio STREPTOCOCCUS AGALACTIAE (test code = 7069659) Not detected Not det ected STREPTOCOCCUS PNEUMONIAE (test code = 0979196) Not detected Not det ected CYTOMEGALOVIRUS (CMV) (test code = 5501464) Not detected Not detect ed ENTEROVIRUS (test code = 0668126) Not detected Not detected HUMAN HERPESVIRUS 6 (HHV-6) (test code = 2659656) Not detected Not detected HERPES SIMPLEX VIRUS 1(HSV-1) (test code = 3980567) Not detected No t detected HERPES SIMPLEX VIRUS 2(HSV-2) (test code = 6424674) Not detected No t detected HUMAN PARECHOVIRUS (test code = 3339554) Not detected Not detected VARICELLA-ZOSTER VIRUS (VZV) (test code = 6842435) Not detected Not detected CRYPTOCOCCUS NEOFORMANS/GATTII (test code = 0966033) Not detecte d Not detected The performance of this test has not been specifically evaluated for CSF specime ns from immunocompromised individuals. The effect of antibiotic treatment on vilma t performance has not been evaluated. Other viruses and bacteria not targeted by this PCR panel cannot be excluded; therefore, clinical correlation and follow u p of serology, culture results, and other molecular studies may be required. Teri s sample was tested at the [facility] Molecular Diagnostics Laboratory using the Enval FilmArray Meningitis Encephalitis Panel. It is FDA cleared and has been veri fied and approved by the [facility] Molecular Diagnostics Laboratory for clinical use . This laboratory is CLIA-certified and [employer] ([employer])-a ccredited to perform high complexity testing.CSF cell count with differential 2020-01-11 18:55:00* Test Item Value Reference Range Interpretation Comments Appearance (test code = 68158-1) Clear Clear Color (test code = 18284-6) Colorless Colorless RBCs (test code = 792-2) 4 0- 5 /cu mm WBCs (test code = 806-0) 1 <=5 /cu mm RBCs Fresh? (test code = 19427-7) 75% Fresh, 25% Crenated # of Cells Diff'd (test code = 52716-2) 5 % Neutros (test code = 42381-1) 20 % 0-5 H % Lymphs (test code = 34001-0) 60 % 40-80 % Monos (test code = 439) 20 % 15-45 % Eos (test code = 360) 0 % <=0 % Baso (test code = 440) 0 % <=0 Tube Number (test code = 2677) 3 Lab Interpretation (test code = 13329-0) [facility] [id number] 18:55:00* Test Item Value Reference Range Interpretation Comments APPEARANCE CSF (BEAKER) (test code = 407) Clear Clear COLOR CSF (BEAKER) (test code = 408) Colorless Colorless RBC CSF (BEAKER) (test code = 409) 4 /cu mm 0-5 WBC CSF (BEAKER) (test code = 1020) 1 /cu mm <=5 RBCS FRESH (BEAKER) (test code = 1444) 75% Fresh, 25% Crenated NUMBER OF CELLS DIFF'D (BEAKER) (test code = 1591) 5 NEUTROPHIL, CSF (BEAKER) (test code = 324) 20 % 0-5 H LYMPHS CSF (BEAKER) (test code = 438) 60 % 40-80 MONO/MACROPHAGE CSF (BEAKER) (test code = 439) 20 % 15-45 EOSINOPHILS CSF (BEAKER) (test code = 360) 0 % <=0 BASO CSF (BEAKER) (test code = 440) 0 % <=0 TUBE NUMBER CSF (BEAKER) (test code = 2678) 3 Glucose, [id number] 18:43:00* Test Item Value Reference Range Interpretation Comments Glucose, CSF (test code = 2342-4) 101 mg/dL 40-70 H LOY (test code = LOY) Marketing Strategy Manager ID - Lab Interpretation (test code = 63078-0) [facility]normal [facility], [id number] 18:43:00* Test Item Value Reference Range Interpretation Comments Protein, CSF (test code = 2880-3) 55 mg/dL 15-45 H LOY (test code = LOY) Marketing Strategy Manager ID - Lab Interpretation (test code = 06154-7) [facility]normal [facility], [id number] 18:43:00* Test Item Value Reference Range Interpretation Comments GLUCOSE CSF (BEAKER) (test code = 406) 101 mg/dL 40-70 H Marketing Strategy Manager ID - ASPROTEIN, [id number] 18:43:00* Test Item Value Reference Range Interpretation Comments PROTEIN CSF (BEAKER) (test code = 378) 55 mg/dL 15-45 H Marketing Strategy Manager ID - ASPOCT-GLUCOSE [id number] 18:08:00* Test Item Value Reference Range Interpretation Comments POC-GLUCOSE METER (BEAKER) (test code = 1538) 189 mg/dL 70-110 H : TESTED AT [facility] [address] [facility] [place], [address]: Marketing Strategy Manager/Clinical Laboratory Technician ID = [id number] for SAHIL KELLY [id number] 17:58:00* Test Item Value Reference Range Interpretation Comments MAGNESIUM (BEAKER) (test code = 627) 2.0 mg/dL 1.6-2.6 Specimen slightly hemolyzed Marketing Strategy Manager ID - [id number] 17:58:00* Test Item Value Reference Range Interpretation Comments PHOSPHORUS (BEAKER) (test code = 604) 2.6 mg/dL 2.3-4.7 Specimen slightly hemolyzed Marketing Strategy Manager ID - NTPBASIC METABOLIC [id number] 17:58:00* Test Item Value Reference Range Interpretation Comments SODIUM (BEAKER) (test code = 381) 132 meq/L 136-145 L POTASSIUM (BEAKER) (test code = 379) 3.8 meq/L 3.5-5.1 Specimen slightly hemolyzed CHLORIDE (BEAKER) (test code = 382) 100 meq/L 98-107 CO2 (BEAKER) (test code = 355) 26 meq/L 22-29 BLOOD UREA NITROGEN (BEAKER) (test code = 354) 27 mg/dL 7-21 H CREATININE (BEAKER) (test code = 358) 0.87 mg/dL 0.57-1.25 Specimen slightly hemolyzed GLUCOSE RANDOM (BEAKER) (test code = 652) 174 mg/dL 70-105 H CALCIUM (BEAKER) (test code = 697) 8.8 mg/dL 8.4-10.2 EGFR (BEAKER) (test code = 1092) 91 mL/min/1.73 sq m ESTIMATED GFR IS NOT ACCURATE CREATININE CLEARANCE IN PREDICTING GLOMERULAR FILTRATION RATE. ESTIMATED GFR IS NOT APPLICABLE FOR DIALYSIS PATIENTS. Marketing Strategy Manager ID - NTPCALCIUM, [id number] 17:33:00* Test Item Value Reference Range Interpretation Comments CALCIUM IONIZED (BEAKER) (test code = 698) 1.11 mmol/L 1.12-1.27 L PH, BLOOD (BEAKER) (test code = 1810) 7.37 BLOOD GAS, [id number] 17:33:00* Test Item Value Reference Range Interpretation Comments PH ARTERIAL (BEAKER) (test code = 383) 7.38 7.35-7.45 PCO2 ARTERIAL (BEAKER) (test code = 384) 49 mmHg 35-45 H PO2 ARTERIAL (BEAKER) (test code = 385) 111 mmHg 80-90 H O2 SATURATION ARTERIAL (BEAKER) (test code = 386) 97.9 % 96.0 -97.0 H HCO3 ARTERIAL (BEAKER) (test code = 388) 28 mmol/L 21-29 BASE EXCESS ARTERIAL (BEAKER) (test code = 387) 2.5 mmol/L -2.0-3 .0 PATIENT TEMPERATURE (BEAKER) (test code = 1818) 36.9 C FIO2 (BEAKER) (test code = 1819) 50.0 % CALCIUM, [id number] 12:41:00* Test Item Value Reference Range Interpretation Comments CALCIUM IONIZED (BEAKER) (test code = 698) 1.10 mmol/L 1.12-1.27 L PH, BLOOD (BEAKER) (test code = 1810) 7.43 POCT-GLUCOSE [id number] 12:35:00* Test Item Value Reference Range Interpretation Comments POC-GLUCOSE METER (BEAKER) (test code = 1538) 182 mg/dL 70-110 H : TESTED AT [facility] [address] [facility] [place], [address]: Marketing Strategy Manager/Clinical Laboratory Technician ID = [id number] for SAHIL KLELY [id number] 11:21:00* Test Item Value Reference Range Interpretation Comments PARTIAL THROMBOPLASTIN TIME (BEAKER) (test code = 760) 40.1 seconds 22.5-36.0 H 4 hours after the start of continuous infusion and 4 hours after any rate change BASIC METABOLIC [id number] 09:28:00* Test Item Value Reference Range Interpretation Comments SODIUM (BEAKER) (test code = 381) 132 meq/L 136-145 L POTASSIUM (BEAKER) (test code = 379) 4.3 meq/L 3.5-5.1 Specimen moderately hemolyzed CHLORIDE (BEAKER) (test code = 382) 102 meq/L 98-107 CO2 (BEAKER) (test code = 355) 23 meq/L 22-29 BLOOD UREA NITROGEN (BEAKER) (test code = 354) 29 mg/dL 7-21 H CREATININE (BEAKER) (test code = 358) 0.82 mg/dL 0.57-1.25 Specimen moderately hemolyzed GLUCOSE RANDOM (BEAKER) (test code = 652) 156 mg/dL 70-105 H CALCIUM (BEAKER) (test code = 697) 8.2 mg/dL 8.4-10.2 L EGFR (BEAKER) (test code = 1092) 98 mL/min/1.73 sq m ESTIMATED GFR IS NOT ACCURATE CREATININE CLEARANCE IN PREDICTING GLOMERULAR FILTRATION RATE. ESTIMATED GFR IS NOT APPLICABLE FOR DIALYSIS PATIENTS. Marketing Strategy Manager ID - NTPCALCIUM, [id number] 08:22:00* Test Item Value Reference Range Interpretation Comments CALCIUM IONIZED (BEAKER) (test code = 698) 1.20 mmol/L 1.12-1.27 PH, BLOOD (BEAKER) (test code = 1810) 7.33 Creatine Kinase (CK)2020-01-11 08:05:00* Test Item Value Reference Range Interpretation Comments Total CK (test code = 2157-6) 40 U/L 29-200 LOY (test code = LOY) Marketing Strategy Manager ID - NTP Lab Interpretation (test code = 11210-4) [facility] (CK)2020-01-11 08:05:00* Test Item Value Reference Range Interpretation Comments CREATINE KINASE TOTAL (BEAKER) (test code = 380) 40 U/L 29-20 0 Marketing Strategy Manager ID - NTPCBC W/PLT COUNT & AUTO [id number] 06:59:00* Test Item Value Reference Range Interpretation Comments WHITE BLOOD CELL COUNT (BEAKER) (test code = 775) 13.8 K/ L 3.5- 10.5 H RED BLOOD CELL COUNT (BEAKER) (test code = 761) 2.72 M/ L 4.63-6 .08 L HEMOGLOBIN (BEAKER) (test code = 410) 8.3 GM/DL 13.7-17.5 L HEMATOCRIT (BEAKER) (test code = 411) 26.3 % 40.1-51.0 L MEAN CORPUSCULAR VOLUME (BEAKER) (test code = 753) 96.7 fL 79. 0-92.2 H MEAN CORPUSCULAR HEMOGLOBIN (BEAKER) (test code = 751) 30.5 pg 25.7-32.2 MEAN CORPUSCULAR HEMOGLOBIN CONC (BEAKER) (test code = 752) 31.6 GM/DL 32.3-36.5 L RED CELL DISTRIBUTION WIDTH (BEAKER) (test code = 412) 18.3 % 11.6-14.4 H PLATELET COUNT (BEAKER) (test code = 756) 82 K/CU MM 150-450 L MEAN PLATELET VOLUME (BEAKER) (test code = 754) 12.0 fL 9.4-12 .4 NUCLEATED RED BLOOD CELLS (BEAKER) (test code = 413) 0 /100 WBC 0 -0 (CELLAVISION MANUAL DIFF)2020-01-11 06:59:00* Test Item Value Reference Range Interpretation Comments NEUTROPHILS - REL (CELLAVISION)(BEAKER) (test code = 2816) 74 % LYMPHOCYTES - REL (CELLAVISION)(BEAKER) (test code = 2817) 7 % MONOCYTES - REL (CELLAVISION)(BEAKER) (test code = 2818) 8 % METAMYELOCYTES - REL (CELLAVISION)(BEAKER) (test code = 2821) 4 % 0-0 H MYELOCYTES - REL (CELLAVISION)(BEAKER) (test code = 2822) 7 % 0-0 H NEUTROPHILS - ABS (CELLAVISION)(BEAKER) (test code = 2830) 10.21 K/ul 1.78-5.38 H LYMPHOCYTES - ABS (CELLAVISION)(BEAKER) (test code = 2831) 0.97 K/ul 1.32-3.57 L MONOCYTES - ABS (CELLAVISION)(BEAKER) (test code = 2832) 1.10 K/uL 0.30-0.82 H METAMYELOCYTES - ABS (CELLAVISION)(BEAKER) (test code = 2836 ) 0.55 K/uL 0.00-0.00 H MYELOCYTES-ABS (CELLAVISION)(BEAKER) (test code = 2837) 0.97 K/uL 0.00-0.00 H TOTAL COUNTED (BEAKER) (test code = 1351) 100 SMUDGE CELLS (BEAKER) (test code = 1371) Present GIANT PLATELETS (BEAKER) (test code = 313) Present POLYCHROMATOPHILLIC RBCS(BEAKER) (test code = 478) 1+ few ANISOCYTOSIS (BEAKER) (test code = 961) 1+ few PLATELET CONCENTRATION (CELLAVISION)(BEAKER) (test code = 3438) Dec reased Marketing Strategy Manager ID - Christine Kilgore comments: Slide comments: POCT-GLUCOSE METER 2020-01-11 05:27:00* Test Item Value Reference Range Interpretation Comments POC-GLUCOSE METER (BEAKER) (test code = 1538) 150 mg/dL 70-110 H : TESTED AT [address], [address]: Marketing Strategy Manager/Clinical Laboratory Technician ID = [id number] for JOHN BEE BLOOD GAS, [id number] 04:43:00* Test Item Value Reference Range Interpretation Comments PH ARTERIAL (BEAKER) (test code = 383) 7.33 7.35-7.45 L PCO2 ARTERIAL (BEAKER) (test code = 384) 54 mmHg 35-45 H PO2 ARTERIAL (BEAKER) (test code = 385) 160 mmHg 80-90 H O2 SATURATION ARTERIAL (BEAKER) (test code = 386) 98.9 % 96.0 -97.0 H HCO3 ARTERIAL (BEAKER) (test code = 388) 28 mmol/L 21-29 BASE EXCESS ARTERIAL (BEAKER) (test code = 387) 1.3 mmol/L -2.0-3 .0 PATIENT TEMPERATURE (BEAKER) (test code = 1818) 36.5 C FIO2 (BEAKER) (test code = 1819) 55.0 % [id number] 03:45:00* Test Item Value Reference Range Interpretation Comments PHOSPHORUS (BEAKER) (test code = 604) 3.7 mg/dL 2.3-4.7 Marketing Strategy Manager ID - IVELISSE [id number] 03:45:00* Test Item Value Reference Range Interpretation Comments MAGNESIUM (BEAKER) (test code = 627) 1.9 mg/dL 1.6-2.6 Marketing Strategy Manager ANGELINA OVIEDO WBASIC METABOLIC [id number] 03:45:00* Test Item Value Reference Range Interpretation Comments SODIUM (BEAKER) (test code = 381) 135 meq/L 136-145 L POTASSIUM (BEAKER) (test code = 379) 4.1 meq/L 3.5-5.1 CHLORIDE (BEAKER) (test code = 382) 102 meq/L 98-107 CO2 (BEAKER) (test code = 355) 27 meq/L 22-29 BLOOD UREA NITROGEN (BEAKER) (test code = 354) 36 mg/dL 7-21 H CREATININE (BEAKER) (test code = 358) 0.99 mg/dL 0.57-1.25 GLUCOSE RANDOM (BEAKER) (test code = 652) 211 mg/dL 70-105 H CALCIUM (BEAKER) (test code = 697) 8.8 mg/dL 8.4-10.2 EGFR (BEAKER) (test code = 1092) 78 mL/min/1.73 sq m ESTIMATED GFR IS NOT ACCURATE CREATININE CLEARANCE IN PREDICTING GLOMERULAR FILTRATION RATE. ESTIMATED GFR IS NOT APPLICABLE FOR DIALYSIS PATIENTS. Marketing Strategy Manager ID Monisha OVIEDO WHEPATIC FUNCTION [id number] 03:45:00* Test Item Value Reference Range Interpretation Comments TOTAL PROTEIN (BEAKER) (test code = 770) 6.6 gm/dL 6.0-8.3 ALBUMIN (BEAKER) (test code = 1145) 2.8 g/dL 3.5-5.0 L BILIRUBIN TOTAL (BEAKER) (test code = 377) 1.2 mg/dL 0.2-1.2 BILIRUBIN DIRECT (BEAKER) (test code = 706) 0.9 mg/dL 0.1-0.5 H ALKALINE PHOSPHATASE (BEAKER) (test code = 346) 578 U/L 40-150 H AST (SGOT) (BEAKER) (test code = 353) 127 U/L 5-34 H ALT (SGPT) (BEAKER) (test code = 347) 199 U/L 6-55 H Marketing Strategy Manager ANGELINA OVIEDO [id number] 03:42:00* Test Item Value Reference Range Interpretation Comments PARTIAL THROMBOPLASTIN TIME (BEAKER) (test code = 760) 40.3 seconds 22.5-36.0 H 4 hours after the start of continuous infusion and 4 hours after any rate change [id number] 00:57:00* Test Item Value Reference Range Interpretation Comments PARTIAL THROMBOPLASTIN TIME (BEAKER) (test code = 760) 33.6 seconds 22.5-36.0 4 hours after the start of continuous infusion and 4 hours after any rate change POCT-GLUCOSE [id number] 00:05:00* Test Item Value Reference Range Interpretation Comments POC-GLUCOSE METER (BEAKER) (test code = 1538) 210 mg/dL 70-110 H : TESTED AT [address], [address]: Marketing Strategy Manager/Clinical Laboratory Technician ID = [id number] for JOHN BEE BASIC METABOLIC [id number] 21:25:00* Test Item Value Reference Range Interpretation Comments SODIUM (BEAKER) (test code = 381) 135 meq/L 136-145 L POTASSIUM (BEAKER) (test code = 379) 3.9 meq/L 3.5-5.1 CHLORIDE (BEAKER) (test code = 382) 101 meq/L 98-107 CO2 (BEAKER) (test code = 355) 28 meq/L 22-29 BLOOD UREA NITROGEN (BEAKER) (test code = 354) 37 mg/dL 7-21 H CREATININE (BEAKER) (test code = 358) 1.20 mg/dL 0.57-1.25 GLUCOSE RANDOM (BEAKER) (test code = 652) 179 mg/dL 70-105 H CALCIUM (BEAKER) (test code = 697) 8.2 mg/dL 8.4-10.2 L EGFR (BEAKER) (test code = 1092) 63 mL/min/1.73 sq m ESTIMATED GFR IS NOT ACCURATE CREATININE CLEARANCE IN PREDICTING GLOMERULAR FILTRATION RATE. ESTIMATED GFR IS NOT APPLICABLE FOR DIALYSIS PATIENTS. Marketing Strategy Manager ID - PIAYA LCALCIUM, [id number] 21:11:00* Test Item Value Reference Range Interpretation Comments CALCIUM IONIZED (BEAKER) (test code = 698) 1.07 mmol/L 1.12-1.27 L PH, BLOOD (BEAKER) (test code = 1810) 7.42 POCT-GLUCOSE [id number] 20:26:00* Test Item Value Reference Range Interpretation Comments POC-GLUCOSE METER (BEAKER) (test code = 1538) 195 mg/dL 70-110 H : TESTED AT [facility] [address] [facility], [address]: Marketing Strategy Manager/Clinical Laboratory Technician ID = [id number] for SAHIL KELLY MR, BRAIN, WITHOUT [id number] 19:22:00FINAL REPORT MR, BRAIN, WITHOUT CONTRAST INDICATION: Coma TECHNIQUE: Multiplanar, multisequence MR imaging of the brain without intravenous contrast. COMPARISON: CT head 01/06/2020 FINDINGS: Intracranial: There is extensive restricted diffusion and FLAIR hyperintensity within the periventricular white matter, bilateral middle cerebellar peduncles and bilateral cerebellar hemispheres. There is also restricted effusion without FLAIR hyperintensity within the ventral juancarlos. Punctate microhemorrhage within the right parieto-occipital ju nction. No mass effect. No hydrocephalus. Visualized intracranial flow voids are of normal course and caliber. Sinuses: Small fluid levels in the right maxillar y sinus and right sphenoid sinus. Bilateral mastoid effusions. Findings likely r elated to intubation. Orbits: Globes are intact. Calvarium \\T\\ scalp: Unremarkab le. IMPRESSION:1.Extensive white matter FLAIR hyperintensity and restricted diff usion involving bilateral cerebral and cerebellar hemispheres, as well as restri cted diffusion within the ventral juancarlos. Findings could be indicative of cerebrit is or ischemia, less typical for seizure edema.2.Punctate microhemorrhage within the right parieto-occipital junction. Signed: Emma B[place] Verified Date/Time: 01/10/2020 19:22:42 brain without IV [id number] 19:22:00 Interface, External Ris In - 01/10/2020 7:24 PM CDTFINAL REPORT PATIENT ID: [id number] MR, BRAIN, WITHOUT CONTRAST INDICATION: Coma TECHNIQUE: Multiplanar, mul tisequence MR imaging of the brain without intravenous contrast. COMPARISON: CT head 01/06/2020 FINDINGS: Intracranial: There is extensive restricted diffusion and FLAIR hyperintensity within the periventricular white matter, bilateral midd le cerebellar peduncles and bilateral cerebellar hemispheres. There is also rest ricted effusion without FLAIR hyperintensity within the ventral juancarlos. Punctate m icrohemorrhage within the right parieto-occipital junction. No mass effect. No h ydrocephalus. Visualized intracranial flow voids are of normal course and calibe r. Sinuses: Small fluid levels in the right maxillary sinus and right sphenoid s inus. Bilateral mastoid effusions. Findings likely related to intubation. Orbits : Globes are intact. Calvarium \\T\\ scalp: Unremarkable. IMPRESSION:1.Extensive w augustus matter FLAIR hyperintensity and restricted diffusion involving bilateral ce rebral and cerebellar hemispheres, as well as restricted diffusion within the ve ntral juancarlos. Findings could be indicative of cerebritis or ischemia, less typical for seizure edema.2.Punctate microhemorrhage within the right parieto-occipital junction. Signed: Emma Boo Verified Date/Time: 01/10/2020 19:22 :42 [facility] 17:21:00* Test Item Value Reference Range Interpretation Comments PARTIAL THROMBOPLASTIN TIME (BEAKER) (test code = 760) 42.6 seconds 22.5-36.0 H 4 hours after the start of continuous infusion and 4 hours after any rate change BLOOD GAS, [id number] 16:28:00* Test Item Value Reference Range Interpretation Comments PH ARTERIAL (BEAKER) (test code = 383) 7.46 7.35-7.45 H PCO2 ARTERIAL (BEAKER) (test code = 384) 40 mmHg 35-45 PO2 ARTERIAL (BEAKER) (test code = 385) 101 mmHg 80-90 H O2 SATURATION ARTERIAL (BEAKER) (test code = 386) 98.1 % 96.0 -97.0 H HCO3 ARTERIAL (BEAKER) (test code = 388) 28 mmol/L 21-29 BASE EXCESS ARTERIAL (BEAKER) (test code = 387) 3.5 mmol/L -2.0-3 .0 H PATIENT TEMPERATURE (BEAKER) (test code = 1818) 35.9 C FIO2 (BEAKER) (test code = 1819) 100.0 % CALCIUM, [id number] 13:35:00* Test Item Value Reference Range Interpretation Comments CALCIUM IONIZED (BEAKER) (test code = 698) 1.11 mmol/L 1.12-1.27 L PH, BLOOD (BEAKER) (test code = 1810) 7.42 [id number] 13:26:00* Test Item Value Reference Range Interpretation Comments PHOSPHORUS (BEAKER) (test code = 604) 4.3 mg/dL 2.3-4.7 Marketing Strategy Manager ID - LUISA [id number] 13:26:00* Test Item Value Reference Range Interpretation Comments MAGNESIUM (BEAKER) (test code = 627) 2.0 mg/dL 1.6-2.6 Marketing Strategy Manager ID - LUISA LBASIC METABOLIC [id number] 13:26:00* Test Item Value Reference Range Interpretation Comments SODIUM (BEAKER) (test code = 381) 136 meq/L 136-145 POTASSIUM (BEAKER) (test code = 379) 4.0 meq/L 3.5-5.1 CHLORIDE (BEAKER) (test code = 382) 103 meq/L 98-107 CO2 (BEAKER) (test code = 355) 28 meq/L 22-29 BLOOD UREA NITROGEN (BEAKER) (test code = 354) 27 mg/dL 7-21 H CREATININE (BEAKER) (test code = 358) 0.82 mg/dL 0.57-1.25 GLUCOSE RANDOM (BEAKER) (test code = 652) 99 mg/dL 70-105 CALCIUM (BEAKER) (test code = 697) 8.6 mg/dL 8.4-10.2 EGFR (BEAKER) (test code = 1092) 98 mL/min/1.73 sq m ESTIMATED GFR IS NOT ACCURATE CREATININE CLEARANCE IN PREDICTING GLOMERULAR FILTRATION RATE. ESTIMATED GFR IS NOT APPLICABLE FOR DIALYSIS PATIENTS. Marketing Strategy Manager ID - LUISA [id number] 13:10:00* Test Item Value Reference Range Interpretation Comments PARTIAL THROMBOPLASTIN TIME (BEAKER) (test code = 760) 40.5 seconds 22.5-36.0 H 4 hours after the start of continuous infusion and 4 hours after any rate change HEPATOBILIARY [id number] 13:10:00FINAL REPORT PROCEDURE: HEPATOBILIARY SCAN CPT CODE: 59022 INDICATION: Abdominal pain, fever, suspected acalculous cholecystitis PROTOCOL: 5.3 mCi of Tc-99m mebrofenin was injected intravenously. Images of the upper abdomen were obtained for approximately 75 minutes after tracer injection. FINDINGS: Initial tracer uptake into the liver is physiological. Subsequent tracer clearance from the liver proceeds normally. There is good visualization of the extrahepatic biliary duct and the gallbladder that is small, and the tracer appears appropriately in the small bowel. IMPRESSION: Normal hepatobiliary scan. Signed: Tram Saini Verified Date/Time: 01/10/2020 13:10:49 Reading Location: [address] [place] Med Reading Room hepatobiliary (HIDA) [id number] 13:10:00Interface, External Ris In - 01/10/2020 1:12 PM CDTFINAL REPORT PROCEDURE: HEPATOBILIARY SCAN CPT CODE: 90571 INDICATION: Abdominal pain, fever, suspected acalculous cholecystitis PROTOCOL: 5.3 mCi of Tc-99m mebrofenin was injected intravenously. Images of the upper abdomen were obtained for approximately 75 minutes after tracer injection. FINDINGS: Initial tracer uptake into the liver is physiological. Subsequent tracer clearance from the liver proceeds normally. There is good visualization of the extrahepatic biliary duct and the gallbladder that is small, and the tracer appears appropriately in the small bowel. IMPRESSION: Normal hepatobiliary scan. Signed: Tram Saini Verified Date/Time: 01/10/2020 13:10:49 Reading Location: [address] [place] Med Reading Room [facility] POCT-GLUCOSE [id number] 12:15:00* Test Item Value Reference Range Interpretation Comments POC-GLUCOSE METER (BEAKER) (test code = 1538) 98 mg/dL 70-110 : TESTED AT [facility] [address] [facility] [place], [address]: Marketing Strategy Manager/Clinical Laboratory Technician ID = [id number] for SAHIL KELLY [id number] 09:16:00* Test Item Value Reference Range Interpretation Comments Sodium (test code = 2951-2) 134 meq/L 136-145 L LOY (test code = LOY) Marketing Strategy Manager ID - PISAHRON L Lab Interpretation (test code = 50185-9) [facility]* Test Item Value Reference Range Interpretation Comments SODIUM (BEAKER) (test code = 381) 134 meq/L 136-145 L Marketing Strategy Manager ID - LUISA [id number] 08:58:00* Test Item Value Reference Range Interpretation Comments FERRITIN (BEAKER) (test code = 361) 1519.89 ng/mL 5.00-275.00 H Marketing Strategy Manager ID - PIAYA LCBC W/PLT COUNT & AUTO [id number] 07:29:00* Test Item Value Reference Range Interpretation Comments WHITE BLOOD CELL COUNT (BEAKER) (test code = 775) 11.4 K/ L 3.5- 10.5 H RED BLOOD CELL COUNT (BEAKER) (test code = 761) 2.79 M/ L 4.63-6 .08 L HEMOGLOBIN (BEAKER) (test code = 410) 8.4 GM/DL 13.7-17.5 L HEMATOCRIT (BEAKER) (test code = 411) 26.6 % 40.1-51.0 L MEAN CORPUSCULAR VOLUME (BEAKER) (test code = 753) 95.3 fL 79. 0-92.2 H MEAN CORPUSCULAR HEMOGLOBIN (BEAKER) (test code = 751) 30.1 pg 25.7-32.2 MEAN CORPUSCULAR HEMOGLOBIN CONC (BEAKER) (test code = 752) 31.6 GM/DL 32.3-36.5 L RED CELL DISTRIBUTION WIDTH (BEAKER) (test code = 412) 18.5 % 11.6-14.4 H PLATELET COUNT (BEAKER) (test code = 756) 55 K/CU MM 150-450 L MEAN PLATELET VOLUME (BEAKER) (test code = 754) 11.7 fL 9.4-12 .4 NUCLEATED RED BLOOD CELLS (BEAKER) (test code = 413) 1 /100 WBC 0 -0 H (CELLAVISION MANUAL DIFF)2020-01-10 07:29:00* Test Item Value Reference Range Interpretation Comments NEUTROPHILS - REL (CELLAVISION)(BEAKER) (test code = 2816) 77 % LYMPHOCYTES - REL (CELLAVISION)(BEAKER) (test code = 2817) 7 % MONOCYTES - REL (CELLAVISION)(BEAKER) (test code = 2818) 6 % BASOPHILS - REL (CELLAVISION)(BEAKER) (test code = 2820) 1 % METAMYELOCYTES - REL (CELLAVISION)(BEAKER) (test code = 2821) 3 % 0-0 H MYELOCYTES - REL (CELLAVISION)(BEAKER) (test code = 2822) 2 % 0-0 H BANDS - REL (CELLAVISION)(BEAKER) (test code = 2826) 3 % 0 -10 ATYPICAL LYMPHOCYTES - REL (CELLAVISION)(BEAKER) (test code = 2829) 1 % 0-0 H NEUTROPHILS - ABS (CELLAVISION)(BEAKER) (test code = 2830) 8.78 K/ul 1.78-5.38 H LYMPHOCYTES - ABS (CELLAVISION)(BEAKER) (test code = 2831) 0.80 K/ul 1.32-3.57 L MONOCYTES - ABS (CELLAVISION)(BEAKER) (test code = 2832) 0.68 K/uL 0.30-0.82 BASOPHILS - ABS (CELLAVISION)(BEAKER) (test code = 2835) 0.11 K/uL 0.01-0.08 H METAMYELOCYTES - ABS (CELLAVISION)(BEAKER) (test code = 2836 ) 0.34 K/uL 0.00-0.00 H MYELOCYTES-ABS (CELLAVISION)(BEAKER) (test code = 2837) 0.23 K/uL 0.00-0.00 H BANDS - ABS (CELLAVISION)(BEAKER) (test code = 2840) 0.34 K/uL 0 .00-0.80 ATYPICAL LYMPHOCYTES - ABS (CELLAVISION)(BEAKER) (test code = 4878) 0.11 K/uL 0.00-0.00 H TOTAL COUNTED (BEAKER) (test code = 1351) 100 WBC MORPHOLOGY (BEAKER) (test code = 487) Normal PLT MORPHOLOGY (BEAKER) (test code = 486) Normal POLYCHROMATOPHILLIC RBCS(BEAKER) (test code = 478) 3+ many ANISOCYTOSIS (BEAKER) (test code = 961) 1+ few MICROCYTES (BEAKER) (test code = 965) 1+ few BASOPHILIC STIPPLING (BEAKER) (test code = 473) Present ARTIFACT (CELLAVISION)(BEAKER) (test code = 3432) Present PLATELET CONCENTRATION (CELLAVISION)(BEAKER) (test code = 3438) Dec reased Marketing Strategy Manager ID - Chacha Flores comments: Slide comments: POCT-GLUCOSE METER 2020-01-10 06:44:00* Test Item Value Reference Range Interpretation Comments POC-GLUCOSE METER (BEAKER) (test code = 1538) 91 mg/dL 70-110 : TESTED AT [address], [address]: Marketing Strategy Manager/Clinical Laboratory Technician ID = [id number] for JEANE GARZAIL [id number] 05:23:00* Test Item Value Reference Range Interpretation Comments PHOSPHORUS (BEAKER) (test code = 604) 2.7 mg/dL 2.3-4.7 Marketing Strategy Manager ID - ESTELLASHARON [id number] 05:23:00* Test Item Value Reference Range Interpretation Comments MAGNESIUM (BEAKER) (test code = 627) 2.0 mg/dL 1.6-2.6 Marketing Strategy Manager ID - LUISA LBASIC METABOLIC [id number] 05:23:00* Test Item Value Reference Range Interpretation Comments SODIUM (BEAKER) (test code = 381) 132 meq/L 136-145 L POTASSIUM (BEAKER) (test code = 379) 4.1 meq/L 3.5-5.1 CHLORIDE (BEAKER) (test code = 382) 101 meq/L 98-107 CO2 (BEAKER) (test code = 355) 27 meq/L 22-29 BLOOD UREA NITROGEN (BEAKER) (test code = 354) 35 mg/dL 7-21 H CREATININE (BEAKER) (test code = 358) 0.89 mg/dL 0.57-1.25 GLUCOSE RANDOM (BEAKER) (test code = 652) 119 mg/dL 70-105 H CALCIUM (BEAKER) (test code = 697) 8.7 mg/dL 8.4-10.2 EGFR (BEAKER) (test code = 1092) 89 mL/min/1.73 sq m ESTIMATED GFR IS NOT ACCURATE CREATININE CLEARANCE IN PREDICTING GLOMERULAR FILTRATION RATE. ESTIMATED GFR IS NOT APPLICABLE FOR DIALYSIS PATIENTS. Marketing Strategy Manager ID - LUISA LHEPATIC FUNCTION [id number] 05:23:00* Test Item Value Reference Range Interpretation Comments TOTAL PROTEIN (BEAKER) (test code = 770) 7.1 gm/dL 6.0-8.3 ALBUMIN (BEAKER) (test code = 1145) 3.0 g/dL 3.5-5.0 L BILIRUBIN TOTAL (BEAKER) (test code = 377) 1.1 mg/dL 0.2-1.2 BILIRUBIN DIRECT (BEAKER) (test code = 706) 0.8 mg/dL 0.1-0.5 H ALKALINE PHOSPHATASE (BEAKER) (test code = 346) 594 U/L 40-150 H AST (SGOT) (BEAKER) (test code = 353) 104 U/L 5-34 H ALT (SGPT) (BEAKER) (test code = 347) 168 U/L 6-55 H Marketing Strategy Manager ID - LUISA LLACTATE DEHYDROGENASE (LDH)2020-01-10 05:23:00* Test Item Value Reference Range Interpretation Comments LACTATE DEHYDROGENASE (BEAKER) (test code = 635) 481 U/L 125-2 20 H Marketing Strategy Manager ID - LUISA LC-REACTIVE [id number] 05:23:00* Test Item Value Reference Range Interpretation Comments C-REACTIVE PROTEIN (BEAKER) (test code = 676) 3.82 mg/dL 0.00-0.5 0 H Marketing Strategy Manager ID - PISHARON [id number] 04:46:00* Test Item Value Reference Range Interpretation Comments PROCALCITONIN (BEAKER) (test code = 3036) 0.67 ng/mL <0.05 H SEPSIS RISK (ng/mL)Low: 0.05-0.50Intermediate: 0.51-2.00High: > =2.01RAD, CHEST, 1 VIEW, NON [id number] 04:24:00Reason for exam:-> intuabtedShould this be performed at the bedside?->YesFINAL REPORT CLINICAL INDICATION: Support lines. Comparison: 01/07/2020 A single view of the chest is submitted. The cardiomediastinal contours are stable. The lung volumes remain low. Bilateral parenchymal opacities are unchanged. There is no pneumothorax. Support lines are stable. Signed: Vj Saunders MDReport Verified Date/Time: 01/10/2020 04:24:04 [id number] 04:10:00* Test Item Value Reference Range Interpretation Comments PARTIAL THROMBOPLASTIN TIME (BEAKER) (test code = 760) 41.2 seconds 22.5-36.0 H POCT-GLUCOSE [id number] 03:58:00* Test Item Value Reference Range Interpretation Comments POC-GLUCOSE METER (BEAKER) (test code = 1538) 111 mg/dL 70-110 H : TESTED AT [address], [address]: Marketing Strategy Manager/Clinical Laboratory Technician ID = [id number] for CADIANG, GLORINEIL CALCIUM, [id number] 03:55:00* Test Item Value Reference Range Interpretation Comments CALCIUM IONIZED (BEAKER) (test code = 698) 1.18 mmol/L 1.12-1.27 PH, BLOOD (BEAKER) (test code = 1810) 7.44 BLOOD GAS, [id number] 03:55:00* Test Item Value Reference Range Interpretation Comments PH ARTERIAL (BEAKER) (test code = 383) 7.44 7.35-7.45 PCO2 ARTERIAL (BEAKER) (test code = 384) 43 mmHg 35-45 PO2 ARTERIAL (BEAKER) (test code = 385) 61 mmHg 80-90 L O2 SATURATION ARTERIAL (BEAKER) (test code = 386) 92.0 % 96.0 -97.0 L HCO3 ARTERIAL (BEAKER) (test code = 388) 28 mmol/L 21-29 BASE EXCESS ARTERIAL (BEAKER) (test code = 387) 3.7 mmol/L -2.0-3 .0 H PATIENT TEMPERATURE (BEAKER) (test code = 1818) 37.0 C FIO2 (BEAKER) (test code = 1819) 40.0 % POCT-GLUCOSE [id number] 02:13:00* Test Item Value Reference Range Interpretation Comments POC-GLUCOSE METER (BEAKER) (test code = 1538) 195 mg/dL 70-110 H : TESTED AT [facility] [address] [facility] [place], [address]: Marketing Strategy Manager/Clinical Laboratory Technician ID = [id number] for JAZMINE GARZA BASIC METABOLIC [id number] 01:29:00* Test Item Value Reference Range Interpretation Comments SODIUM (BEAKER) (test code = 381) 132 meq/L 136-145 L POTASSIUM (BEAKER) (test code = 379) 4.8 meq/L 3.5-5.1 Specimen slightly hemolyzed CHLORIDE (BEAKER) (test code = 382) 101 meq/L 98-107 CO2 (BEAKER) (test code = 355) 23 meq/L 22-29 BLOOD UREA NITROGEN (BEAKER) (test code = 354) 39 mg/dL 7-21 H CREATININE (BEAKER) (test code = 358) 1.07 mg/dL 0.57-1.25 Specimen slightly hemolyzed GLUCOSE RANDOM (BEAKER) (test code = 652) 256 mg/dL 70-105 H CALCIUM (BEAKER) (test code = 697) 8.6 mg/dL 8.4-10.2 EGFR (BEAKER) (test code = 1092) 72 mL/min/1.73 sq m ESTIMATED GFR IS NOT ACCURATE CREATININE CLEARANCE IN PREDICTING GLOMERULAR FILTRATION RATE. ESTIMATED GFR IS NOT APPLICABLE FOR DIALYSIS PATIENTS. Marketing Strategy Manager ID - PIAYA LPOCT-GLUCOSE [id number] 01:19:00* Test Item Value Reference Range Interpretation Comments POC-GLUCOSE METER (BEAKER) (test code = 1538) 246 mg/dL 70-110 H : TESTED AT [place] [id number] [facility] [place], [address]: Marketing Strategy Manager/Clinical Laboratory Technician ID = [id number] for GÓMEZ MOULTON BASIC METABOLIC [id number] 20:50:00* Test Item Value Reference Range Interpretation Comments SODIUM (BEAKER) (test code = 381) 132 meq/L 136-145 L POTASSIUM (BEAKER) (test code = 379) 5.0 meq/L 3.5-5.1 Specimen slightly hemolyzed CHLORIDE (BEAKER) (test code = 382) 101 meq/L 98-107 CO2 (BEAKER) (test code = 355) 24 meq/L 22-29 BLOOD UREA NITROGEN (BEAKER) (test code = 354) 41 mg/dL 7-21 H CREATININE (BEAKER) (test code = 358) 1.23 mg/dL 0.57-1.25 Specimen slightly hemolyzed GLUCOSE RANDOM (BEAKER) (test code = 652) 294 mg/dL 70-105 H CALCIUM (BEAKER) (test code = 697) 8.5 mg/dL 8.4-10.2 EGFR (BEAKER) (test code = 1092) 61 mL/min/1.73 sq m ESTIMATED GFR IS NOT ACCURATE CREATININE CLEARANCE IN PREDICTING GLOMERULAR FILTRATION RATE. ESTIMATED GFR IS NOT APPLICABLE FOR DIALYSIS PATIENTS. Marketing Strategy Manager ID - DBPOCT-GLUCOSE [id number] 19:21:00* Test Item Value Reference Range Interpretation Comments POC-GLUCOSE METER (BEAKER) (test code = 1538) 242 mg/dL 70-110 H : TESTED AT [facility] [address] [facility] [place], [address]: Marketing Strategy Manager/Clinical Laboratory Technician ID = [id number] for SAHIL KELLY Lactic Acid, [id number] 18:25:00* Test Item Value Reference Range Interpretation Comments Lactate, Art (test code = 2874) 0.7 mmol/L 0.5-2.2 LOY (test code = LOY) Marketing Strategy Manager ID - RESHMA C Lab Interpretation (test code = 73038-1) Normal [facility], [id number] 18:25:00* Test Item Value Reference Range Interpretation Comments LACTATE BLOOD ARTERIAL (2) (BEAKER) (test code = 2874) 0.7 mmol/L 0.5-2.2 Marketing Strategy Manager ID - RESHMA [id number] 18:13:00* Test Item Value Reference Range Interpretation Comments PARTIAL THROMBOPLASTIN TIME (BEAKER) (test code = 760) 32.5 seconds 22.5-36.0 4 hours after the start of continuous infusion and 4 hours after any rate change CALCIUM, [id number] 18:04:00* Test Item Value Reference Range Interpretation Comments CALCIUM IONIZED (BEAKER) (test code = 698) 1.11 mmol/L 1.12-1.27 L PH, BLOOD (BEAKER) (test code = 1810) 7.40 BLOOD GAS, [id number] 18:02:00* Test Item Value Reference Range Interpretation Comments PH ARTERIAL (BEAKER) (test code = 383) 7.40 7.35-7.45 PCO2 ARTERIAL (BEAKER) (test code = 384) 46 mmHg 35-45 H PO2 ARTERIAL (BEAKER) (test code = 385) 161 mmHg 80-90 H O2 SATURATION ARTERIAL (BEAKER) (test code = 386) 99.1 % 96.0 -97.0 H HCO3 ARTERIAL (BEAKER) (test code = 388) 28 mmol/L 21-29 BASE EXCESS ARTERIAL (BEAKER) (test code = 387) 2.6 mmol/L -2.0-3 .0 PATIENT TEMPERATURE (BEAKER) (test code = 1818) 36.7 C FIO2 (BEAKER) (test code = 1819) 50.0 % U/S, ABDOMINAL, [id number] 17:27:00Abdomen limited area? Add comment if clarification is needed.->Right upper quadrantReason for exam:->persistent feverShould this be performed at the bedside?->YesFINAL REPORT TECHNIQUE: Grayscale ultrasound of the right abdomen. INDICATION: persistent fever. COMPARISON: Ultrasound from 12/30/2019. FINDINGS: MIDLINE VASCULATURE: The visualized inferior vena cava is unremarkable. The maximum visualized aortic diameter is 1.7 cm. LIVER: Increased liver echogenicity. Smooth liver contour. No focal lesions. The main portal vein is patent and measures 1 cm in diameter. BILIARY:Gallbladder: A gallstone measures 1.1 cm in diameter. The gallbladder wall is mildly thickened. The gallbladder diameter is mildly increased. Unable to evaluate for a sonographic Ramírez signCommon bile duct measures 0.4 cm, within normal limits. No intrahepatic biliary ductal dila tation. PANCREAS: Incompletely visualized due to overlying bowel gas. The partia lly visualized pancreatic, neck, and body are normal. PERITONEUM: No free fluid. RIGHT KIDNEY: Normal in size. No hydronephrosis. No sonographically evident himanshu id mass lesion. IMPRESSION: 1.Cholelithiasis. The gallbladder wall thickening a nd gallbladder distention are nonspecific and could be due to the acute renal fa ilure and fasting. However, acute cholecystitis cannot be excluded. 2.Diffuse fa tty infiltration of the liver. Signed: Harpreet Thompsoneport Verified Date/Time: 01/09/2020 17:27:30 Reading Location: [facility] C013Y CT Body Reading Room Cori ctronically signed by: HARPREET THOMPSON MD on 01/09/2020 05:27 PM PHOSPHORUS 2020-01-09 15:43:00* Test Item Value Reference Range Interpretation Comments PHOSPHORUS (BEAKER) (test code = 604) 2.5 mg/dL 2.3-4.7 Marketing Strategy Manager ID - RESHMA [id number] 15:43:00* Test Item Value Reference Range Interpretation Comments MAGNESIUM (BEAKER) (test code = 627) 1.9 mg/dL 1.6-2.6 Marketing Strategy Manager ID - RESHMA CBASIC METABOLIC [id number] 15:43:00* Test Item Value Reference Range Interpretation Comments SODIUM (BEAKER) (test code = 381) 132 meq/L 136-145 L POTASSIUM (BEAKER) (test code = 379) 5.3 meq/L 3.5-5.1 H CHLORIDE (BEAKER) (test code = 382) 101 meq/L 98-107 CO2 (BEAKER) (test code = 355) 27 meq/L 22-29 BLOOD UREA NITROGEN (BEAKER) (test code = 354) 46 mg/dL 7-21 H CREATININE (BEAKER) (test code = 358) 1.31 mg/dL 0.57-1.25 H GLUCOSE RANDOM (BEAKER) (test code = 652) 308 mg/dL 70-105 H CALCIUM (BEAKER) (test code = 697) 8.8 mg/dL 8.4-10.2 EGFR (BEAKER) (test code = 1092) 57 mL/min/1.73 sq m ESTIMATED GFR IS NOT ACCURATE CREATININE CLEARANCE IN PREDICTING GLOMERULAR FILTRATION RATE. ESTIMATED GFR IS NOT APPLICABLE FOR DIALYSIS PATIENTS. Marketing Strategy Manager ID - RESHMA CPOCT-GLUCOSE [id number] 13:45:00* Test Item Value Reference Range Interpretation Comments POC-GLUCOSE METER (BEAKER) (test code = 1538) 245 mg/dL 70-110 H : TESTED AT [facility] [address] [place] [address], [address]: Marketing Strategy Manager/Clinical Laboratory Technician ID = [id number] for JADYN SILVA [id number] 11:38:00* Test Item Value Reference Range Interpretation Comments PARTIAL THROMBOPLASTIN TIME (BEAKER) (test code = 760) 33.6 seconds 22.5-36.0 4 hours after the start of continuous infusion and 4 hours after any rate change CBC W/PLT COUNT & AUTO [id number] 09:48:00* Test Item Value Reference Range Interpretation Comments WHITE BLOOD CELL COUNT (BEAKER) (test code = 775) 9.3 K/ L 3.5- 10.5 RED BLOOD CELL COUNT (BEAKER) (test code = 761) 2.78 M/ L 4.63-6 .08 L HEMOGLOBIN (BEAKER) (test code = 410) 8.6 GM/DL 13.7-17.5 L HEMATOCRIT (BEAKER) (test code = 411) 27.1 % 40.1-51.0 L MEAN CORPUSCULAR VOLUME (BEAKER) (test code = 753) 97.5 fL 79. 0-92.2 H MEAN CORPUSCULAR HEMOGLOBIN (BEAKER) (test code = 751) 30.9 pg 25.7-32.2 MEAN CORPUSCULAR HEMOGLOBIN CONC (BEAKER) (test code = 752) 31.7 GM/DL 32.3-36.5 L RED CELL DISTRIBUTION WIDTH (BEAKER) (test code = 412) 18.6 % 11.6-14.4 H PLATELET COUNT (BEAKER) (test code = 756) 45 K/CU MM 150-450 L MEAN PLATELET VOLUME (BEAKER) (test code = 754) 12.6 fL 9.4-12 .4 H NUCLEATED RED BLOOD CELLS (BEAKER) (test code = 413) 0 /100 WBC 0 -0 (CELLAVISION MANUAL DIFF)2020-01-09 09:48:00* Test Item Value Reference Range Interpretation Comments NEUTROPHILS - REL (CELLAVISION)(BEAKER) (test code = 2816) 70 % LYMPHOCYTES - REL (CELLAVISION)(BEAKER) (test code = 2817) 8 % MONOCYTES - REL (CELLAVISION)(BEAKER) (test code = 2818) 5 % EOSINOPHILS - REL (CELLAVISION)(BEAKER) (test code = 2819) 3 % BASOPHILS - REL (CELLAVISION)(BEAKER) (test code = 2820) 1 % METAMYELOCYTES - REL (CELLAVISION)(BEAKER) (test code = 2821) 1 % 0-0 H MYELOCYTES - REL (CELLAVISION)(BEAKER) (test code = 2822) 3 % 0-0 H BANDS - REL (CELLAVISION)(BEAKER) (test code = 2826) 8 % 0 -10 ATYPICAL LYMPHOCYTES - REL (CELLAVISION)(BEAKER) (test code = 2829) 1 % 0-0 H NEUTROPHILS - ABS (CELLAVISION)(BEAKER) (test code = 2830) 6.51 K/ul 1.78-5.38 H LYMPHOCYTES - ABS (CELLAVISION)(BEAKER) (test code = 2831) 0.74 K/ul 1.32-3.57 L MONOCYTES - ABS (CELLAVISION)(BEAKER) (test code = 2832) 0.47 K/uL 0.30-0.82 EOSINOPHILS - ABS (CELLAVISION)(BEAKER) (test code = 2834) 0.28 K/uL 0.04-0.54 BASOPHILS - ABS (CELLAVISION)(BEAKER) (test code = 2835) 0.09 K/uL 0.01-0.08 H METAMYELOCYTES - ABS (CELLAVISION)(BEAKER) (test code = 2836 ) 0.09 K/uL 0.00-0.00 H MYELOCYTES-ABS (CELLAVISION)(BEAKER) (test code = 2837) 0.28 K/uL 0.00-0.00 H BANDS - ABS (CELLAVISION)(BEAKER) (test code = 2840) 0.74 K/uL 0 .00-0.80 ATYPICAL LYMPHOCYTES - ABS (CELLAVISION)(BEAKER) (test code = 9558) 0.09 K/uL 0.00-0.00 H TOTAL COUNTED (BEAKER) (test code = 1351) 100 WBC MORPHOLOGY (BEAKER) (test code = 487) Normal PLT MORPHOLOGY (BEAKER) (test code = 486) Normal POLYCHROMATOPHILLIC RBCS(BEAKER) (test code = 478) 1+ few ANISOCYTOSIS (BEAKER) (test code = 961) 1+ few MICROCYTES (BEAKER) (test code = 965) 1+ few MACROCYTES (BEAKER) (test code = 964) 1+ few ARTIFACT (CELLAVISION)(BEAKER) (test code = 3432) Present PLATELET CONCENTRATION (CELLAVISION)(BEAKER) (test code = 3438) Dec reased Marketing Strategy Manager ID - [id number] ID - Carmen OverholtUser comments: Slide comments: [id number] 09:25:00* Test Item Value Reference Range Interpretation Comments PHOSPHORUS (BEAKER) (test code = 604) 2.5 mg/dL 2.3-4.7 Marketing Strategy Manager ID - RESHMA CBASIC METABOLIC [id number] 09:25:00* Test Item Value Reference Range Interpretation Comments SODIUM (BEAKER) (test code = 381) 134 meq/L 136-145 L POTASSIUM (BEAKER) (test code = 379) 5.3 meq/L 3.5-5.1 H CHLORIDE (BEAKER) (test code = 382) 102 meq/L 98-107 CO2 (BEAKER) (test code = 355) 26 meq/L 22-29 BLOOD UREA NITROGEN (BEAKER) (test code = 354) 36 mg/dL 7-21 H CREATININE (BEAKER) (test code = 358) 1.16 mg/dL 0.57-1.25 GLUCOSE RANDOM (BEAKER) (test code = 652) 243 mg/dL 70-105 H CALCIUM (BEAKER) (test code = 697) 8.4 mg/dL 8.4-10.2 EGFR (BEAKER) (test code = 1092) 65 mL/min/1.73 sq m ESTIMATED GFR IS NOT ACCURATE CREATININE CLEARANCE IN PREDICTING GLOMERULAR FILTRATION RATE. ESTIMATED GFR IS NOT APPLICABLE FOR DIALYSIS PATIENTS. Marketing Strategy Manager ID - RESHMA CSPUTUM CULTURE + GRAM [id number] 09:21:00* Test Item Value Reference Range Interpretation Comments CULTURE (BEAKER) (test code = 1095) 3+ Normal respiratory stacie pre sent GRAM STAIN RESULT (BEAKER) (test code = 1123) 2+ White blood cells seen GRAM STAIN RESULT (BEAKER) (test code = 79428) 10-15 epithelial dania ls GRAM STAIN RESULT (BEAKER) (test code = 93192) 1+ gram negative danial s GRAM STAIN RESULT (BEAKER) (test code = 702941) 2+ gram posi tive cocci in pairs CALCIUM, [id number] 09:12:00* Test Item Value Reference Range Interpretation Comments CALCIUM IONIZED (BEAKER) (test code = 698) 1.07 mmol/L 1.12-1.27 L PH, BLOOD (BEAKER) (test code = 1810) 7.44 [id number] 07:03:00* Test Item Value Reference Range Interpretation Comments MAGNESIUM (BEAKER) (test code = 627) 2.1 mg/dL 1.6-2.6 Marketing Strategy Manager ID - PIAYA [id number] 07:03:00* Test Item Value Reference Range Interpretation Comments PHOSPHORUS (BEAKER) (test code = 604) 2.7 mg/dL 2.3-4.7 Marketing Strategy Manager ID - PIAYA LPOCT-GLUCOSE [id number] 06:08:00* Test Item Value Reference Range Interpretation Comments POC-GLUCOSE METER (BEAKER) (test code = 1538) 224 mg/dL 70-110 H : TESTED AT [facility] [address] [place] [address], [address]: Marketing Strategy Manager/Clinical Laboratory Technician ID = [id number] for FROILAN ALICIA [id number] 05:00:00* Test Item Value Reference Range Interpretation Comments PARTIAL THROMBOPLASTIN TIME (BEAKER) (test code = 760) 31.6 seconds 22.5-36.0 THROMBOELASTOGRAPH (TEG)2020-01-09 03:20:00* Test Item Value Reference Range Interpretation Comments TEG ACTIVATED CLOTTING TIME (BEAKER) (test code = 1407) 7.3 minutes 4.0-7.0 H TEG FIBRINOGEN ACTIVITY (BEAKER) (test code = 1408) 58.6 degrees 61 .0-73.0 L TEG PLT. AGGREGATION (BEAKER) (test code = 1409) 61.1 MM 55.0- 65.0 TGH ACTIVATED CLOTTING TIME (BEAKER) (test code = 1411) 5.8 minutes 4.0-7.0 TGH FIBRINOGEN ACTIVITY (BEAKER) (test code = 1412) 63.0 degrees 61 .0-73.0 TGH PLT. AGGREGATION (BEAKER) (test code = 1413) 61.6 MM 55.0- 65.0 HEPATIC FUNCTION [id number] 02:52:00* Test Item Value Reference Range Interpretation Comments TOTAL PROTEIN (BEAKER) (test code = 770) 7.0 gm/dL 6.0-8.3 ALBUMIN (BEAKER) (test code = 1145) 3.1 g/dL 3.5-5.0 L BILIRUBIN TOTAL (BEAKER) (test code = 377) 1.2 mg/dL 0.2-1.2 BILIRUBIN DIRECT (BEAKER) (test code = 706) 0.8 mg/dL 0.1-0.5 H ALKALINE PHOSPHATASE (BEAKER) (test code = 346) 557 U/L 40-150 H AST (SGOT) (BEAKER) (test code = 353) 87 U/L 5-34 H ALT (SGPT) (BEAKER) (test code = 347) 147 U/L 6-55 H Marketing Strategy Manager ID - LUISA LBASIC METABOLIC [id number] 02:52:00* Test Item Value Reference Range Interpretation Comments SODIUM (BEAKER) (test code = 381) 134 meq/L 136-145 L POTASSIUM (BEAKER) (test code = 379) 5.0 meq/L 3.5-5.1 CHLORIDE (BEAKER) (test code = 382) 102 meq/L 98-107 CO2 (BEAKER) (test code = 355) 27 meq/L 22-29 BLOOD UREA NITROGEN (BEAKER) (test code = 354) 33 mg/dL 7-21 H CREATININE (BEAKER) (test code = 358) 1.11 mg/dL 0.57-1.25 GLUCOSE RANDOM (BEAKER) (test code = 652) 215 mg/dL 70-105 H CALCIUM (BEAKER) (test code = 697) 8.5 mg/dL 8.4-10.2 EGFR (BEAKER) (test code = 1092) 69 mL/min/1.73 sq m ESTIMATED GFR IS NOT ACCURATE CREATININE CLEARANCE IN PREDICTING GLOMERULAR FILTRATION RATE. ESTIMATED GFR IS NOT APPLICABLE FOR DIALYSIS PATIENTS. Marketing Strategy Manager ID - PIAYA LBLOOD GAS, [id number] 02:37:00* Test Item Value Reference Range Interpretation Comments PH ARTERIAL (BEAKER) (test code = 383) 7.44 7.35-7.45 PCO2 ARTERIAL (BEAKER) (test code = 384) 42 mmHg 35-45 PO2 ARTERIAL (BEAKER) (test code = 385) 86 mmHg 80-90 O2 SATURATION ARTERIAL (BEAKER) (test code = 386) 96.8 % 96.0 -97.0 HCO3 ARTERIAL (BEAKER) (test code = 388) 28 mmol/L 21-29 BASE EXCESS ARTERIAL (BEAKER) (test code = 387) 3.7 mmol/L -2.0-3 .0 H PATIENT TEMPERATURE (BEAKER) (test code = 1818) 37.0 C FIO2 (BEAKER) (test code = 1819) 50.0 % CALCIUM, [id number] 02:37:00* Test Item Value Reference Range Interpretation Comments CALCIUM IONIZED (BEAKER) (test code = 698) 1.10 mmol/L 1.12-1.27 L PH, BLOOD (BEAKER) (test code = 1810) 7.44 POCT-GLUCOSE [id number] 00:16:00* Test Item Value Reference Range Interpretation Comments POC-GLUCOSE METER (BEAKER) (test code = 1538) 205 mg/dL 70-110 H : TESTED [address], [id number]: Marketing Strategy Manager/Clinical Laboratory Technician ID = [id number] for REAGAN MOTT [id number] 23:11:00* Test Item Value Reference Range Interpretation Comments PARTIAL THROMBOPLASTIN TIME (BEAKER) (test code = 760) 30.6 seconds 22.5-36.0 CALCIUM, [id number] 20:06:00* Test Item Value Reference Range Interpretation Comments CALCIUM IONIZED (BEAKER) (test code = 698) 1.14 mmol/L 1.12-1.27 PH, BLOOD (BEAKER) (test code = 1810) 7.37 BLOOD [id number] 18:00:00* Test Item Value Reference Range Interpretation Comments CULTURE (BEAKER) (test code = 1095) No growth in 5 days [id number] 17:52:00* Test Item Value Reference Range Interpretation Comments PARTIAL THROMBOPLASTIN TIME (BEAKER) (test code = 760) 29.9 seconds 22.5-36.0 4 hours after the start of continuous infusion and 4 hours after any rate change POCT-GLUCOSE [id number] 17:39:00* Test Item Value Reference Range Interpretation Comments POC-GLUCOSE METER (BEAKER) (test code = 1538) 285 mg/dL 70-110 H : TESTED AT [address] [place], [address]: Marketing Strategy Manager/Clinical Laboratory Technician ID = [id number] for SANTOSH BOTELLO [id number] 16:48:00* Test Item Value Reference Range Interpretation Comments PHOSPHORUS (BEAKER) (test code = 604) 3.6 mg/dL 2.3-4.7 Marketing Strategy Manager ID - [id number] 16:48:00* Test Item Value Reference Range Interpretation Comments MAGNESIUM (BEAKER) (test code = 627) 2.4 mg/dL 1.6-2.6 Marketing Strategy Manager ID - NTPBASIC METABOLIC [id number] 16:48:00* Test Item Value Reference Range Interpretation Comments SODIUM (BEAKER) (test code = 381) 134 meq/L 136-145 L POTASSIUM (BEAKER) (test code = 379) 4.6 meq/L 3.5-5.1 CHLORIDE (BEAKER) (test code = 382) 103 meq/L 98-107 CO2 (BEAKER) (test code = 355) 26 meq/L 22-29 BLOOD UREA NITROGEN (BEAKER) (test code = 354) 33 mg/dL 7-21 H CREATININE (BEAKER) (test code = 358) 0.96 mg/dL 0.57-1.25 GLUCOSE RANDOM (BEAKER) (test code = 652) 320 mg/dL 70-105 H CALCIUM (BEAKER) (test code = 697) 8.2 mg/dL 8.4-10.2 L EGFR (BEAKER) (test code = 1092) 81 mL/min/1.73 sq m ESTIMATED GFR IS NOT ACCURATE CREATININE CLEARANCE IN PREDICTING GLOMERULAR FILTRATION RATE. ESTIMATED GFR IS NOT APPLICABLE FOR DIALYSIS PATIENTS. Marketing Strategy Manager ID - NTPBLOOD [id number] 14:49:00* Test Item Value Reference Range Interpretation Comments CULTURE (BEAKER) (test code = 1095) A From Anaerobic Bottle Only Coagulase negative Staphylococcus GRAM STAIN RESULT (BEAKER) (test code = 1123) From ramu erobic bottle only: gram positive cocci in clusters [id number] 13:08:00* Test Item Value Reference Range Interpretation Comments PARTIAL THROMBOPLASTIN TIME (BEAKER) (test code = 760) 28.5 seconds 22.5-36.0 4 hours after the start of continuous infusion and 4 hours after any rate change POCT-GLUCOSE [id number] 12:45:00* Test Item Value Reference Range Interpretation Comments POC-GLUCOSE METER (BEAKER) (test code = 1538) 279 mg/dL 70-110 H : TESTED AT [facility] [address] [facility] [place], [address]: Marketing Strategy Manager/Clinical Laboratory Technician ID = [id number] for SANTOSH BOTELLO CBC W/PLT COUNT & AUTO [id number] 12:20:00* Test Item Value Reference Range Interpretation Comments WHITE BLOOD CELL COUNT (BEAKER) (test code = 775) 5.6 K/ L 3.5- 10.5 RED BLOOD CELL COUNT (BEAKER) (test code = 761) 2.64 M/ L 4.63-6 .08 L HEMOGLOBIN (BEAKER) (test code = 410) 8.2 GM/DL 13.7-17.5 L HEMATOCRIT (BEAKER) (test code = 411) 25.8 % 40.1-51.0 L MEAN CORPUSCULAR VOLUME (BEAKER) (test code = 753) 97.7 fL 79. 0-92.2 H MEAN CORPUSCULAR HEMOGLOBIN (BEAKER) (test code = 751) 31.1 pg 25.7-32.2 MEAN CORPUSCULAR HEMOGLOBIN CONC (BEAKER) (test code = 752) 31.8 GM/DL 32.3-36.5 L RED CELL DISTRIBUTION WIDTH (BEAKER) (test code = 412) 18.7 % 11.6-14.4 H PLATELET COUNT (BEAKER) (test code = 756) 42 K/CU MM 150-450 L MEAN PLATELET VOLUME (BEAKER) (test code = 754) 12.6 fL 9.4-12 .4 H NUCLEATED RED BLOOD CELLS (BEAKER) (test code = 413) 0 /100 WBC 0 -0 (CELLAVISION MANUAL DIFF)2020-01-08 12:20:00* Test Item Value Reference Range Interpretation Comments NEUTROPHILS - REL (CELLAVISION)(BEAKER) (test code = 2816) 85 % LYMPHOCYTES - REL (CELLAVISION)(BEAKER) (test code = 2817) 7 % MONOCYTES - REL (CELLAVISION)(BEAKER) (test code = 2818) 6 % METAMYELOCYTES - REL (CELLAVISION)(BEAKER) (test code = 2821) 1 % 0-0 H MYELOCYTES - REL (CELLAVISION)(BEAKER) (test code = 2822) 1 % 0-0 H NEUTROPHILS - ABS (CELLAVISION)(BEAKER) (test code = 2830) 4.76 K/ul 1.78-5.38 LYMPHOCYTES - ABS (CELLAVISION)(BEAKER) (test code = 2831) 0.39 K/ul 1.32-3.57 L MONOCYTES - ABS (CELLAVISION)(BEAKER) (test code = 2832) 0.34 K/uL 0.30-0.82 METAMYELOCYTES - ABS (CELLAVISION)(BEAKER) (test code = 2836 ) 0.06 K/uL 0.00-0.00 H MYELOCYTES-ABS (CELLAVISION)(BEAKER) (test code = 2837) 0.06 K/uL 0.00-0.00 H TOTAL COUNTED (BEAKER) (test code = 1351) 100 PLT MORPHOLOGY (BEAKER) (test code = 486) Normal TOXIC GRANULATION (BEAKER) (test code = 771) Present POLYCHROMATOPHILLIC RBCS(BEAKER) (test code = 478) 1+ few ANISOCYTOSIS (BEAKER) (test code = 961) 1+ few MICROCYTES (BEAKER) (test code = 965) 1+ few MACROCYTES (BEAKER) (test code = 964) 1+ few ARTIFACT (CELLAVISION)(BEAKER) (test code = 3432) Present PLATELET CONCENTRATION (CELLAVISION)(BEAKER) (test code = 3438) Dec reased Marketing Strategy Manager ID - [id number] ID - Nabil EscobarUser comments: Slide comments: HEPATIC FUNCTION [id number] 12:03:00* Test Item Value Reference Range Interpretation Comments TOTAL PROTEIN (BEAKER) (test code = 770) 6.7 gm/dL 6.0-8.3 ALBUMIN (BEAKER) (test code = 1145) 3.0 g/dL 3.5-5.0 L BILIRUBIN TOTAL (BEAKER) (test code = 377) 1.0 mg/dL 0.2-1.2 BILIRUBIN DIRECT (BEAKER) (test code = 706) 0.8 mg/dL 0.1-0.5 H ALKALINE PHOSPHATASE (BEAKER) (test code = 346) 511 U/L 40-150 H AST (SGOT) (BEAKER) (test code = 353) 72 U/L 5-34 H ALT (SGPT) (BEAKER) (test code = 347) 132 U/L 6-55 H Marketing Strategy Manager ID - NTPBLOOD GAS, [id number] 10:10:00* Test Item Value Reference Range Interpretation Comments PH ARTERIAL (BEAKER) (test code = 383) 7.40 7.35-7.45 PCO2 ARTERIAL (BEAKER) (test code = 384) 45 mmHg 35-45 PO2 ARTERIAL (BEAKER) (test code = 385) 190 mmHg 80-90 H O2 SATURATION ARTERIAL (BEAKER) (test code = 386) 99.3 % 96.0 -97.0 H HCO3 ARTERIAL (BEAKER) (test code = 388) 27 mmol/L 21-29 BASE EXCESS ARTERIAL (BEAKER) (test code = 387) 1.8 mmol/L -2.0-3 .0 PATIENT TEMPERATURE (BEAKER) (test code = 1818) 37.0 C FIO2 (BEAKER) (test code = 1819) 100.0 % [id number] 09:00:00* Test Item Value Reference Range Interpretation Comments PHOSPHORUS (BEAKER) (test code = 604) 3.0 mg/dL 2.3-4.7 Marketing Strategy Manager ID - PIAYA [id number] 09:00:00* Test Item Value Reference Range Interpretation Comments MAGNESIUM (BEAKER) (test code = 627) 2.1 mg/dL 1.6-2.6 Marketing Strategy Manager ID - PIAYA LBASIC METABOLIC [id number] 09:00:00* Test Item Value Reference Range Interpretation Comments SODIUM (BEAKER) (test code = 381) 135 meq/L 136-145 L POTASSIUM (BEAKER) (test code = 379) 4.8 meq/L 3.5-5.1 CHLORIDE (BEAKER) (test code = 382) 103 meq/L 98-107 CO2 (BEAKER) (test code = 355) 25 meq/L 22-29 BLOOD UREA NITROGEN (BEAKER) (test code = 354) 34 mg/dL 7-21 H CREATININE (BEAKER) (test code = 358) 0.98 mg/dL 0.57-1.25 GLUCOSE RANDOM (BEAKER) (test code = 652) 340 mg/dL 70-105 H CALCIUM (BEAKER) (test code = 697) 8.4 mg/dL 8.4-10.2 EGFR (BEAKER) (test code = 1092) 79 mL/min/1.73 sq m ESTIMATED GFR IS NOT ACCURATE CREATININE CLEARANCE IN PREDICTING GLOMERULAR FILTRATION RATE. ESTIMATED GFR IS NOT APPLICABLE FOR DIALYSIS PATIENTS. Marketing Strategy Manager ID - PIAYA LCALCIUM, [id number] 08:50:00* Test Item Value Reference Range Interpretation Comments CALCIUM IONIZED (BEAKER) (test code = 698) 1.15 mmol/L 1.12-1.27 PH, BLOOD (BEAKER) (test code = 1810) 7.40 THROMBOELASTOGRAPH (TEG)2020-01-08 07:24:00* Test Item Value Reference Range Interpretation Comments TEG ACTIVATED CLOTTING TIME (BEAKER) (test code = 1407) 6.3 minutes 4.0-7.0 TEG FIBRINOGEN ACTIVITY (BEAKER) (test code = 1408) 69.4 degrees 61 .0-73.0 TEG PLT. AGGREGATION (BEAKER) (test code = 1409) 72.7 MM 55.0- 65.0 H TGH ACTIVATED CLOTTING TIME (BEAKER) (test code = 1411) 6.6 minutes 4.0-7.0 TGH FIBRINOGEN ACTIVITY (BEAKER) (test code = 1412) 69.1 degrees 61 .0-73.0 TGH PLT. AGGREGATION (BEAKER) (test code = 1413) 68.5 MM 55.0- 65.0 H [id number] 06:22:00* Test Item Value Reference Range Interpretation Comments PROCALCITONIN (BEAKER) (test code = 3036) 0.64 ng/mL <0.05 H SEPSIS RISK (ng/mL)Low: 0.05-0.50Intermediate: 0.51-2.00High: > =[id number] 06:05:00* Test Item Value Reference Range Interpretation Comments FERRITIN (BEAKER) (test code = 361) 1770.00 ng/mL 5.00-275.00 H Marketing Strategy Manager ID - [id number] 05:42:00* Test Item Value Reference Range Interpretation Comments PHOSPHORUS (BEAKER) (test code = 604) 3.3 mg/dL 2.3-4.7 Marketing Strategy Manager ANGELINA MORAN [id number] 05:42:00* Test Item Value Reference Range Interpretation Comments MAGNESIUM (BEAKER) (test code = 627) 2.2 mg/dL 1.6-2.6 Marketing Strategy Manager ID Monisha MORAN LCOMPREHENSIVE METABOLIC [id number] 05:42:00* Test Item Value Reference Range Interpretation Comments TOTAL PROTEIN (BEAKER) (test code = 770) 6.5 gm/dL 6.0-8.3 ALBUMIN (BEAKER) (test code = 1145) 2.9 g/dL 3.5-5.0 L ALKALINE PHOSPHATASE (BEAKER) (test code = 346) 509 U/L 40-150 H BILIRUBIN TOTAL (BEAKER) (test code = 377) 1.1 mg/dL 0.2-1.2 SODIUM (BEAKER) (test code = 381) 136 meq/L 136-145 POTASSIUM (BEAKER) (test code = 379) 4.9 meq/L 3.5-5.1 CHLORIDE (BEAKER) (test code = 382) 105 meq/L 98-107 CO2 (BEAKER) (test code = 355) 25 meq/L 22-29 BLOOD UREA NITROGEN (BEAKER) (test code = 354) 34 mg/dL 7-21 H CREATININE (BEAKER) (test code = 358) 0.96 mg/dL 0.57-1.25 GLUCOSE RANDOM (BEAKER) (test code = 652) 326 mg/dL 70-105 H CALCIUM (BEAKER) (test code = 697) 8.2 mg/dL 8.4-10.2 L AST (SGOT) (BEAKER) (test code = 353) 78 U/L 5-34 H ALT (SGPT) (BEAKER) (test code = 347) 132 U/L 6-55 H EGFR (BEAKER) (test code = 1092) 81 mL/min/1.73 sq m ESTIMATED GFR IS NOT ACCURATE CREATININE CLEARANCE IN PREDICTING GLOMERULAR FILTRATION RATE. ESTIMATED GFR IS NOT APPLICABLE FOR DIALYSIS PATIENTS. Marketing Strategy Manager ID Monisha MORAN LLACTATE DEHYDROGENASE (LDH)2020-01-08 05:42:00* Test Item Value Reference Range Interpretation Comments LACTATE DEHYDROGENASE (BEAKER) (test code = 635) 410 U/L 125-2 20 H Marketing Strategy Manager ID - PIAYA LC-REACTIVE [id number] 05:42:00* Test Item Value Reference Range Interpretation Comments C-REACTIVE PROTEIN (BEAKER) (test code = 676) 8.25 mg/dL 0.00-0.5 0 H Marketing Strategy Manager ID - PIAYA LBLOOD GAS, [id number] 05:36:00* Test Item Value Reference Range Interpretation Comments PH ARTERIAL (BEAKER) (test code = 383) 7.43 7.35-7.45 PCO2 ARTERIAL (BEAKER) (test code = 384) 40 mmHg 35-45 PO2 ARTERIAL (BEAKER) (test code = 385) 95 mmHg 80-90 H O2 SATURATION ARTERIAL (BEAKER) (test code = 386) 97.2 % 96.0 -97.0 H HCO3 ARTERIAL (BEAKER) (test code = 388) 26 mmol/L 21-29 BASE EXCESS ARTERIAL (BEAKER) (test code = 387) 1.4 mmol/L -2.0-3 .0 PATIENT TEMPERATURE (BEAKER) (test code = 1818) 37.5 C FIO2 (BEAKER) (test code = 1819) 50 % This is a corrected result. Previous result was 100.0 % on 01/08/2020 at 0515 CDT Nurse wants diff FIO2 FOR [id number] 05:32:00* Test Item Value Reference Range Interpretation Comments PARTIAL THROMBOPLASTIN TIME (BEAKER) (test code = 760) 30.9 seconds 22.5-36.0 POCT-GLUCOSE [id number] 05:31:00* Test Item Value Reference Range Interpretation Comments POC-GLUCOSE METER (BEAKER) (test code = 1538) 248 mg/dL 70-110 H : TESTED AT [facility] [address] [facility] [place], [address]: Marketing Strategy Manager/Clinical Laboratory Technician ID = [id number] for FLORES HARRISON [id number] 00:26:00* Test Item Value Reference Range Interpretation Comments MAGNESIUM (BEAKER) (test code = 627) 1.9 mg/dL 1.6-2.6 Specimen slightly hemolyzed Marketing Strategy Manager ID - PIAYA LBASIC METABOLIC [id number] 00:26:00* Test Item Value Reference Range Interpretation Comments SODIUM (BEAKER) (test code = 381) 138 meq/L 136-145 POTASSIUM (BEAKER) (test code = 379) 4.4 meq/L 3.5-5.1 Specimen slightly hemolyzed CHLORIDE (BEAKER) (test code = 382) 103 meq/L 98-107 CO2 (BEAKER) (test code = 355) 27 meq/L 22-29 BLOOD UREA NITROGEN (BEAKER) (test code = 354) 26 mg/dL 7-21 H CREATININE (BEAKER) (test code = 358) 0.74 mg/dL 0.57-1.25 Specimen slightly hemolyzed GLUCOSE RANDOM (BEAKER) (test code = 652) 175 mg/dL 70-105 H CALCIUM (BEAKER) (test code = 697) 8.8 mg/dL 8.4-10.2 EGFR (BEAKER) (test code = 1092) 110 mL/min/1.73 sq m ESTIMATED GFR IS NOT ACCURATE CREATININE CLEARANCE IN PREDICTING GLOMERULAR FILTRATION RATE. ESTIMATED GFR IS NOT APPLICABLE FOR DIALYSIS PATIENTS. Marketing Strategy Manager ID - PIAYA LPOCT-GLUCOSE [id number] 00:02:00* Test Item Value Reference Range Interpretation Comments POC-GLUCOSE METER (BEAKER) (test code = 1538) 165 mg/dL 70-110 H : TESTED AT [address], [address]: Marketing Strategy Manager/Clinical Laboratory Technician ID = [id number] for FLORES HARRISON [id number] 23:20:00* Test Item Value Reference Range Interpretation Comments PARTIAL THROMBOPLASTIN TIME (BEAKER) (test code = 760) 27.4 seconds 22.5-36.0 4 hours after the start of continuous infusion and 4 hours after any rate change CALCIUM, [id number] 23:14:00* Test Item Value Reference Range Interpretation Comments CALCIUM IONIZED (BEAKER) (test code = 698) 1.14 mmol/L 1.12-1.27 PH, BLOOD (BEAKER) (test code = 1810) 7.45 BLOOD GAS, [id number] 23:12:00* Test Item Value Reference Range Interpretation Comments PH ARTERIAL (BEAKER) (test code = 383) 7.47 7.35-7.45 H PCO2 ARTERIAL (BEAKER) (test code = 384) 38 mmHg 35-45 PO2 ARTERIAL (BEAKER) (test code = 385) 90 mmHg 80-90 O2 SATURATION ARTERIAL (BEAKER) (test code = 386) 97.4 % 96.0 -97.0 H HCO3 ARTERIAL (BEAKER) (test code = 388) 27 mmol/L 21-29 BASE EXCESS ARTERIAL (BEAKER) (test code = 387) 2.6 mmol/L -2.0-3 .0 PATIENT TEMPERATURE (BEAKER) (test code = 1818) 36.5 C FIO2 (BEAKER) (test code = 1819) 50.0 % [id number] 18:54:00* Test Item Value Reference Range Interpretation Comments Ammonia (test code = 00682-7) 46 18- 72 mol/L LOY (test code = LOY) Marketing Strategy Manager ID - NTP Lab Interpretation (test code = 10963-8) [facility] 18:54:00* Test Item Value Reference Range Interpretation Comments AMMONIA (BEAKER) (test code = 348) 46 mol/L 18-72 Marketing Strategy Manager ID - NTPTSH/Free T4 If [id number] 18:50:00* Test Item Value Reference Range Interpretation Comments TSH (test code = 70299-3) 1.115 0.350- 4.940 uIU/mL LOY (test code = LOY) Marketing Strategy Manager ID - NTP Lab Interpretation (test code = 21350-4) [facility] T4 IF [id number] 18:50:00* Test Item Value Reference Range Interpretation Comments THYROID STIMULATING HORMONE (BEAKER) (test code = 772) 1.115 uIU /mL 0.350-4.940 Marketing Strategy Manager ID - NTPEEG RECORDING IN COMA/SLEEP [id number] 18:09:00Reason for exam:->Not waking up despite sedation turned off for > 5 daysShould this be performed at the bedside?->YesNEUROPHYSIOLOGY EEG REPORT拼DATE OF TEST: [id number] OF REPORT: 01-07-2020ᚠName: CHACE ZIMMER: [birth year]MRN: [id number]: [id number] time: 14:10Stop time: 14:31䵫CPT Code: 14941JYQ-39: R56.9TECHNICAL SUMMARY:This is a digital video EEG recorded with 32 input channels reviewed with bipolar and referential montages using the modified combinatorial system nomenclature.DESCRIPTION OF RECORD:During a maximal alerting, there is no well defined posterior dominant rhythm or a voltage/frequency gradient. The background is represented by a moderate voltage 4-7 hz activity. During deeper sedation, slower 2-4 hz frequencies predominate. Stage 2 sleep patterns were not observed. The background is reactive to external stimulation applied by the cardiovascular technologist as evidenced by the predominance of faster frequency spectra following stimulation. Spontaneous background variability is preserved. ꉆHV: Hyperventilation was not performed.PHOTIC STIMULATION: Photic stimulation across a broad range of frequencies did not elicit abnormal waveforms or responses. ELECTROCARDIOGRAM EVENTS: None, sinus rhythm俇IMPRESSION: Abnormal EEG in coma- mild diffuse slowing of the background rhythmsCLINICAL CORRELATION: The background slowing suggests the presence of a mild encephalopathy. There were no focal or lateralizing features and no electrographic or electro-clinical seizures.Raina Bejarano MDEpilepsy Attending퇒嵚𓌑& #[id number]; RECORDING IN COMA/SLEEP [id number] 18:09:00Interface, External Ris In - 01/07/2020 6:09 PM CDTNEUROPHYSIOLOGY EEG REPORT肔DATE OF TEST: [id number] OF REPORT: 01-07-2020ৌName: CHACE ZIMMER: [birth year]- [birth year]MRN: [id number]: [id number] time: 14:10Stop time: 14:31𕷐CPT Code: 04079APP-77: R56.9鉤TECHNICAL SUMMARY:This is a digital video EEG recorded with 32 input channels reviewed with bipolar and referential montages using the modified combinatorial system nomenclature.DESCRIPTION OF RECORD:During a maximal alerting, there is no well defined posterior dominant rhythm or a voltage/frequency gradient. The background is represented by a moderate voltage 4-7 hz activity. During deeper sedation, slower 2-4 hz frequencies predominate. Stage 2 sleep patterns were not observed. The background is reactive to external stimulation applied by the cardiovascular technologist as evidenced by the predominance of faster frequency spectra following stimulation. Spontaneous background variability is preserved. 𒸷HV: Hyperventilation was not performed.PHOTIC STIMULATION: Photic stimulation across a broad range of frequencies did not elicit abnormal waveforms or responses. ELECTROCARDIOGRAM EVENTS: None, sinus rhythm욣IMPRESSION: Abnormal EEG in coma- mild diffuse slowing of the background rhythmsCLINICAL CORRELATION: The background slowing suggests the presence of a mild encephalopathy. There were no focal or lateralizing features and no electrographic or electro-clinical seizures.𔦤Raina Bejarano MDEpilepsy Attending𕷬𖖥쐻& #[id number]; [facility] W/PLT COUNT & AUTO [id number] 17:50:00* Test Item Value Reference Range Interpretation Comments WHITE BLOOD CELL COUNT (BEAKER) (test code = 775) 5.9 K/ L 3.5- 10.5 RED BLOOD CELL COUNT (BEAKER) (test code = 761) 2.52 M/ L 4.63-6 .08 L HEMOGLOBIN (BEAKER) (test code = 410) 7.9 GM/DL 13.7-17.5 L HEMATOCRIT (BEAKER) (test code = 411) 24.5 % 40.1-51.0 L MEAN CORPUSCULAR VOLUME (BEAKER) (test code = 753) 97.2 fL 79. 0-92.2 H MEAN CORPUSCULAR HEMOGLOBIN (BEAKER) (test code = 751) 31.3 pg 25.7-32.2 MEAN CORPUSCULAR HEMOGLOBIN CONC (BEAKER) (test code = 752) 32.2 GM/DL 32.3-36.5 L RED CELL DISTRIBUTION WIDTH (BEAKER) (test code = 412) 19.4 % 11.6-14.4 H PLATELET COUNT (BEAKER) (test code = 756) 49 K/CU MM 150-450 L MEAN PLATELET VOLUME (BEAKER) (test code = 754) 13.4 fL 9.4-12 .4 H NUCLEATED RED BLOOD CELLS (BEAKER) (test code = 413) 0 /100 WBC 0 -0 POCT-GLUCOSE [id number] 17:20:00* Test Item Value Reference Range Interpretation Comments POC-GLUCOSE METER (BEAKER) (test code = 1538) 221 mg/dL 70-110 H : TESTED AT [facility] [address] [facility], [address]: Marketing Strategy Manager/Clinical Laboratory Technician ID = [id number] for DOUG WILLIAM [id number] 16:10:00* Test Item Value Reference Range Interpretation Comments PHOSPHORUS (BEAKER) (test code = 604) 3.0 mg/dL 2.3-4.7 Marketing Strategy Manager ID - NTPBASIC METABOLIC [id number] 16:10:00* Test Item Value Reference Range Interpretation Comments SODIUM (BEAKER) (test code = 381) 138 meq/L 136-145 POTASSIUM (BEAKER) (test code = 379) 4.5 meq/L 3.5-5.1 CHLORIDE (BEAKER) (test code = 382) 105 meq/L 98-107 CO2 (BEAKER) (test code = 355) 27 meq/L 22-29 BLOOD UREA NITROGEN (BEAKER) (test code = 354) 35 mg/dL 7-21 H CREATININE (BEAKER) (test code = 358) 0.84 mg/dL 0.57-1.25 GLUCOSE RANDOM (BEAKER) (test code = 652) 212 mg/dL 70-105 H CALCIUM (BEAKER) (test code = 697) 8.4 mg/dL 8.4-10.2 EGFR (BEAKER) (test code = 1092) 95 mL/min/1.73 sq m ESTIMATED GFR IS NOT ACCURATE CREATININE CLEARANCE IN PREDICTING GLOMERULAR FILTRATION RATE. ESTIMATED GFR IS NOT APPLICABLE FOR DIALYSIS PATIENTS. Marketing Strategy Manager ID - NTPHEMOGLOBIN AND [id number] 15:54:00* Test Item Value Reference Range Interpretation Comments HEMOGLOBIN (BEAKER) (test code = 410) 8.0 GM/DL 13.7-17.5 L HEMATOCRIT (BEAKER) (test code = 411) 24.5 % 40.1-51.0 L Marketing Strategy Manager ID - 6000BLOOD GAS, [id number] 15:50:00* Test Item Value Reference Range Interpretation Comments PH ARTERIAL (BEAKER) (test code = 383) 7.42 7.35-7.45 PCO2 ARTERIAL (BEAKER) (test code = 384) 42 mmHg 35-45 PO2 ARTERIAL (BEAKER) (test code = 385) 67 mmHg 80-90 L O2 SATURATION ARTERIAL (BEAKER) (test code = 386) 93.6 % 96.0 -97.0 L HCO3 ARTERIAL (BEAKER) (test code = 388) 27 mmol/L 21-29 BASE EXCESS ARTERIAL (BEAKER) (test code = 387) 1.9 mmol/L -2.0-3 .0 PATIENT TEMPERATURE (BEAKER) (test code = 1818) 37.0 C FIO2 (BEAKER) (test code = 1819) 45.0 % CALCIUM, [id number] 15:49:00* Test Item Value Reference Range Interpretation Comments CALCIUM IONIZED (BEAKER) (test code = 698) 1.12 mmol/L 1.12-1.27 PH, BLOOD (BEAKER) (test code = 1810) 7.43 POCT-GLUCOSE [id number] 11:28:00* Test Item Value Reference Range Interpretation Comments POC-GLUCOSE METER (BEAKER) (test code = 1538) 232 mg/dL 70-110 H : TESTED AT [place] [id number] [facility], [address]: Marketing Strategy Manager/Clinical Laboratory Technician ID = [id number] for DOUG WILLIAM [id number] 11:11:00* Test Item Value Reference Range Interpretation Comments PHOSPHORUS (BEAKER) (test code = 604) 2.9 mg/dL 2.3-4.7 Marketing Strategy Manager ID - [id number] 11:11:00* Test Item Value Reference Range Interpretation Comments MAGNESIUM (BEAKER) (test code = 627) 2.0 mg/dL 1.6-2.6 Marketing Strategy Manager ID - NTPBASIC METABOLIC [id number] 11:11:00* Test Item Value Reference Range Interpretation Comments SODIUM (BEAKER) (test code = 381) 137 meq/L 136-145 POTASSIUM (BEAKER) (test code = 379) 4.6 meq/L 3.5-5.1 CHLORIDE (BEAKER) (test code = 382) 105 meq/L 98-107 CO2 (BEAKER) (test code = 355) 28 meq/L 22-29 BLOOD UREA NITROGEN (BEAKER) (test code = 354) 37 mg/dL 7-21 H CREATININE (BEAKER) (test code = 358) 0.90 mg/dL 0.57-1.25 GLUCOSE RANDOM (BEAKER) (test code = 652) 256 mg/dL 70-105 H CALCIUM (BEAKER) (test code = 697) 8.4 mg/dL 8.4-10.2 EGFR (BEAKER) (test code = 1092) 88 mL/min/1.73 sq m ESTIMATED GFR IS NOT ACCURATE CREATININE CLEARANCE IN PREDICTING GLOMERULAR FILTRATION RATE. ESTIMATED GFR IS NOT APPLICABLE FOR DIALYSIS PATIENTS. Marketing Strategy Manager ID - NTPBLOOD GAS, [id number] 10:42:00* Test Item Value Reference Range Interpretation Comments PH ARTERIAL (BEAKER) (test code = 383) 7.44 7.35-7.45 PCO2 ARTERIAL (BEAKER) (test code = 384) 42 mmHg 35-45 PO2 ARTERIAL (BEAKER) (test code = 385) 78 mmHg 80-90 L O2 SATURATION ARTERIAL (BEAKER) (test code = 386) 95.9 % 96.0 -97.0 L HCO3 ARTERIAL (BEAKER) (test code = 388) 28 mmol/L 21-29 BASE EXCESS ARTERIAL (BEAKER) (test code = 387) 3.4 mmol/L -2.0-3 .0 H PATIENT TEMPERATURE (BEAKER) (test code = 1818) 37.0 C FIO2 (BEAKER) (test code = 1819) 45.0 % CALCIUM, [id number] 10:40:00* Test Item Value Reference Range Interpretation Comments CALCIUM IONIZED (BEAKER) (test code = 698) 1.14 mmol/L 1.12-1.27 PH, BLOOD (BEAKER) (test code = 1810) 7.43 RAD, CHEST, 1 VIEW, NON [id number] 08:37:00Reason for exam:->sepsisShould this be performed at the bedside?->YesFINAL REPORT CLINICAL HISTORY: sepsis TECHNIQUE: 1 view of the chest. COMPARISON: 01/04/2020 IMPRESSION: The supporting lines and tubes are similar appearing. Multifocal bilateral airspace opacities are slightly decreased. There are no significant appearing effusions. The cardiomediastinal silhouette is magnified by technique. Signed: Damian Huang MDReport Verified Date/Time: 01/07/2020 08:37:26 Reading Location: [facility] Radiology Reading Room W/PLT COUNT & AUTO DIFFERENTIAL 2020-01-07 07:53:00* Test Item Value Reference Range Interpretation Comments WHITE BLOOD CELL COUNT (BEAKER) (test code = 775) 4.4 K/ L 3.5- 10.5 RED BLOOD CELL COUNT (BEAKER) (test code = 761) 2.46 M/ L 4.63-6 .08 L HEMOGLOBIN (BEAKER) (test code = 410) 7.6 GM/DL 13.7-17.5 L HEMATOCRIT (BEAKER) (test code = 411) 24.3 % 40.1-51.0 L MEAN CORPUSCULAR VOLUME (BEAKER) (test code = 753) 98.8 fL 79. 0-92.2 H MEAN CORPUSCULAR HEMOGLOBIN (BEAKER) (test code = 751) 30.9 pg 25.7-32.2 MEAN CORPUSCULAR HEMOGLOBIN CONC (BEAKER) (test code = 752) 31.3 GM/DL 32.3-36.5 L RED CELL DISTRIBUTION WIDTH (BEAKER) (test code = 412) 19.2 % 11.6-14.4 H PLATELET COUNT (BEAKER) (test code = 756) 36 K/CU MM 150-450 L MEAN PLATELET VOLUME (BEAKER) (test code = 754) 12.6 fL 9.4-12 .4 H NUCLEATED RED BLOOD CELLS (BEAKER) (test code = 413) 1 /100 WBC 0 -0 H (CELLAVISION MANUAL DIFF)2020-01-07 07:53:00* Test Item Value Reference Range Interpretation Comments NEUTROPHILS - REL (CELLAVISION)(BEAKER) (test code = 2816) 68 % LYMPHOCYTES - REL (CELLAVISION)(BEAKER) (test code = 2817) 10 % MONOCYTES - REL (CELLAVISION)(BEAKER) (test code = 2818) 8 % EOSINOPHILS - REL (CELLAVISION)(BEAKER) (test code = 2819) 3 % BASOPHILS - REL (CELLAVISION)(BEAKER) (test code = 2820) 1 % MYELOCYTES - REL (CELLAVISION)(BEAKER) (test code = 2822) 2 % 0-0 H PROMYELOCYTES - REL (CELLAVSION)(BEAKER) (test code = 2825) 3 % 0-0 H BANDS - REL (CELLAVISION)(BEAKER) (test code = 2826) 5 % 0 -10 NEUTROPHILS - ABS (CELLAVISION)(BEAKER) (test code = 2830) 2.99 K/ul 1.78-5.38 LYMPHOCYTES - ABS (CELLAVISION)(BEAKER) (test code = 2831) 0.44 K/ul 1.32-3.57 L MONOCYTES - ABS (CELLAVISION)(BEAKER) (test code = 2832) 0.35 K/uL 0.30-0.82 EOSINOPHILS - ABS (CELLAVISION)(BEAKER) (test code = 2834) 0.13 K/uL 0.04-0.54 BASOPHILS - ABS (CELLAVISION)(BEAKER) (test code = 2835) 0.04 K/uL 0.01-0.08 MYELOCYTES-ABS (CELLAVISION)(BEAKER) (test code = 2837) 0.09 K/uL 0.00-0.00 H PROMYELOCYTES - ABS (CELLAVISION)(BEAKER) (test code = 2838) 0.13 K/uL 0.00-0.00 H BANDS - ABS (CELLAVISION)(BEAKER) (test code = 2840) 0.22 K/uL 0 .00-0.80 TOTAL COUNTED (BEAKER) (test code = 1351) 100 MANUAL NRBC PER 100 CELLS (BEAKER) (test code = 1353) 1 /100 WBC 0-0 H WBC MORPHOLOGY (BEAKER) (test code = 487) Normal GIANT PLATELETS (BEAKER) (test code = 313) Present LARGE PLT(BEAKER) (test code = 2156) Present POLYCHROMATOPHILLIC RBCS(BEAKER) (test code = 478) 3+ many HYPOCHROMIA (BEAKER) (test code = 963) 2+ moderate ANISOCYTOSIS (BEAKER) (test code = 961) 1+ few MICROCYTES (BEAKER) (test code = 965) 2+ moderate POIKILOCYTES (BEAKER) (test code = 966) 2+ moderate SPHEROCYTES (BEAKER) (test code = 768) 1+ few OVALOCYTES (BEAKER) (test code = 477) 2+ moderate TEAR DROP CELLS (BEAKER) (test code = 481) 1+ few STOMATOCYTES (BEAKER) (test code = 479) 1+ few ARTIFACT (CELLAVISION)(BEAKER) (test code = 3432) Present PLATELET CONCENTRATION (CELLAVISION)(BEAKER) (test code = 3438) Dec reased Marketing Strategy Manager ID - [id number] ID - Ryann Olson comments: Slide comments: [id number] 06:41:00* Test Item Value Reference Range Interpretation Comments PARTIAL THROMBOPLASTIN TIME (BEAKER) (test code = 760) 78.8 seconds 22.5-36.0 H 4 hours after the start of continuous infusion and 4 hours after any rate change POCT-GLUCOSE [id number] 06:00:00* Test Item Value Reference Range Interpretation Comments POC-GLUCOSE METER (BEAKER) (test code = 1538) 219 mg/dL 70-110 H : TESTED AT [address], [address]: Marketing Strategy Manager/Clinical Laboratory Technician ID = [id number] for Liv Dugan LACTATE DEHYDROGENASE (LDH)2020-01-07 04:46:00* Test Item Value Reference Range Interpretation Comments LACTATE DEHYDROGENASE (BEAKER) (test code = 635) 345 U/L 125-2 20 H Marketing Strategy Manager ID - EDASICOMPREHENSIVE METABOLIC [id number] 04:46:00* Test Item Value Reference Range Interpretation Comments TOTAL PROTEIN (BEAKER) (test code = 770) 6.2 gm/dL 6.0-8.3 ALBUMIN (BEAKER) (test code = 1145) 3.0 g/dL 3.5-5.0 L ALKALINE PHOSPHATASE (BEAKER) (test code = 346) 507 U/L 40-150 H BILIRUBIN TOTAL (BEAKER) (test code = 377) 1.0 mg/dL 0.2-1.2 SODIUM (BEAKER) (test code = 381) 137 meq/L 136-145 POTASSIUM (BEAKER) (test code = 379) 4.8 meq/L 3.5-5.1 CHLORIDE (BEAKER) (test code = 382) 106 meq/L 98-107 CO2 (BEAKER) (test code = 355) 25 meq/L 22-29 BLOOD UREA NITROGEN (BEAKER) (test code = 354) 38 mg/dL 7-21 H CREATININE (BEAKER) (test code = 358) 0.96 mg/dL 0.57-1.25 GLUCOSE RANDOM (BEAKER) (test code = 652) 295 mg/dL 70-105 H CALCIUM (BEAKER) (test code = 697) 8.6 mg/dL 8.4-10.2 AST (SGOT) (BEAKER) (test code = 353) 83 U/L 5-34 H ALT (SGPT) (BEAKER) (test code = 347) 113 U/L 6-55 H EGFR (BEAKER) (test code = 1092) 81 mL/min/1.73 sq m ESTIMATED GFR IS NOT ACCURATE CREATININE CLEARANCE IN PREDICTING GLOMERULAR FILTRATION RATE. ESTIMATED GFR IS NOT APPLICABLE FOR DIALYSIS PATIENTS. Marketing Strategy Manager ID - EDASIHEPATIC FUNCTION [id number] 04:46:00* Test Item Value Reference Range Interpretation Comments TOTAL PROTEIN (BEAKER) (test code = 770) 6.2 gm/dL 6.0-8.3 ALBUMIN (BEAKER) (test code = 1145) 3.0 g/dL 3.5-5.0 L BILIRUBIN TOTAL (BEAKER) (test code = 377) 1.0 mg/dL 0.2-1.2 BILIRUBIN DIRECT (BEAKER) (test code = 706) 0.8 mg/dL 0.1-0.5 H ALKALINE PHOSPHATASE (BEAKER) (test code = 346) 507 U/L 40-150 H AST (SGOT) (BEAKER) (test code = 353) 83 U/L 5-34 H ALT (SGPT) (BEAKER) (test code = 347) 113 U/L 6-55 H Marketing Strategy Manager ID - [id number] 04:46:00* Test Item Value Reference Range Interpretation Comments MAGNESIUM (BEAKER) (test code = 627) 1.9 mg/dL 1.6-2.6 Marketing Strategy Manager ID - [id number] 04:46:00* Test Item Value Reference Range Interpretation Comments PHOSPHORUS (BEAKER) (test code = 604) 3.3 mg/dL 2.3-4.7 Marketing Strategy Manager ID - RENNYTROPONIN [id number] 04:44:00* Test Item Value Reference Range Interpretation Comments TROPONIN I (BEAKER) (test code = 397) 0.12 ng/mL 0.00-0.03 H Troponin I (TnI) levels must be interpreted in the context of the presenting sym ptoms and the clinical findings. Elevated TnI levels indicate myocardial damage, but are not specific for ischemic heart disease. Elevated TnI levels are seen i n patients with other cardiac conditions (including myocarditis and congestive h eart failure), and slight TnI elevations occur in patients with other conditions , including sepsis, renal failure, acidosis, acute neurological disease, and per sistent tachyarrhythmia.Marketing Strategy Manager ID - RENNYBLOOD GAS, [id number] 04:02:00* Test Item Value Reference Range Interpretation Comments PH ARTERIAL (BEAKER) (test code = 383) 7.40 7.35-7.45 PCO2 ARTERIAL (BEAKER) (test code = 384) 45 mmHg 35-45 PO2 ARTERIAL (BEAKER) (test code = 385) 90 mmHg 80-90 O2 SATURATION ARTERIAL (BEAKER) (test code = 386) 97.0 % 96.0 -97.0 HCO3 ARTERIAL (BEAKER) (test code = 388) 27 mmol/L 21-29 BASE EXCESS ARTERIAL (BEAKER) (test code = 387) 2.0 mmol/L -2.0-3 .0 PATIENT TEMPERATURE (BEAKER) (test code = 1818) 36.5 C FIO2 (BEAKER) (test code = 1819) 50.0 % [id number] 00:49:00* Test Item Value Reference Range Interpretation Comments PARTIAL THROMBOPLASTIN TIME (BEAKER) (test code = 760) 49.9 seconds 22.5-36.0 H 4 hours after the start of continuous infusion and 4 hours after any rate change POCT-GLUCOSE [id number] 00:47:00* Test Item Value Reference Range Interpretation Comments POC-GLUCOSE METER (BEAKER) (test code = 1538) 264 mg/dL 70-110 H : TESTED AT [facility] [address] [facility], [address]: Marketing Strategy Manager/Clinical Laboratory Technician ID = [id number] for Liv Dugan CALCIUM, [id number] 00:46:00* Test Item Value Reference Range Interpretation Comments CALCIUM IONIZED (BEAKER) (test code = 698) 1.08 mmol/L 1.12-1.27 L PH, BLOOD (BEAKER) (test code = 1810) 7.40 POCT-GLUCOSE [id number] 00:17:00* Test Item Value Reference Range Interpretation Comments POC-GLUCOSE METER (BEAKER) (test code = 1538) 234 mg/dL 70-110 H : TESTED AT [facility] [address] [facility], [address]: Marketing Strategy Manager/Clinical Laboratory Technician ID = [id number] for SAHIL KELLY URINALYSIS W/ REFLEX URINE [id number] 23:43:00* Test Item Value Reference Range Interpretation Comments COLOR (BEAKER) (test code = 470) Dark Red CLARITY (BEAKER) (test code = 469) Cloudy SPECIFIC GRAVITY UA (BEAKER) (test code = 468) 1.014 1.001-1 .035 PH UA (BEAKER) (test code = 467) 6.0 5.0-8.0 PROTEIN UA (BEAKER) (test code = 464) 100 mg/dL Negative A GLUCOSE UA (BEAKER) (test code = 365) 200 mg/dL Negative A KETONES UA (BEAKER) (test code = 371) Trace Negative A BILIRUBIN UA (BEAKER) (test code = 462) Negative Negative BLOOD UA (BEAKER) (test code = 461) Large Negative A NITRITE UA (BEAKER) (test code = 465) Negative Negative LEUKOCYTE ESTERASE UA (BEAKER) (test code = 466) Moderate Negat vince A UROBILINOGEN UA (BEAKER) (test code = 463) 3.0 mg/dL 0.2-1.0 H RBC UA (BEAKER) (test code = 519) [address] /HPF WBC UA (BEAKER) (test code = 520) 274 /HPF BACTERIA (BEAKER) (test code = 517) Moderate MUCUS (BEAKER) (test code = 1574) Moderate SOURCE(BEAKER) (test code = 2795) Marketing Strategy Manager ID - [auto]Marketing Strategy Manager ID - tech-Extremely bloody specimenBASIC METABOLIC [id number] 22:36:00* Test Item Value Reference Range Interpretation Comments SODIUM (BEAKER) (test code = 381) 134 meq/L 136-145 L POTASSIUM (BEAKER) (test code = 379) 4.8 meq/L 3.5-5.1 Specimen slightly hemolyzed CHLORIDE (BEAKER) (test code = 382) 104 meq/L 98-107 CO2 (BEAKER) (test code = 355) 25 meq/L 22-29 BLOOD UREA NITROGEN (BEAKER) (test code = 354) 41 mg/dL 7-21 H CREATININE (BEAKER) (test code = 358) 1.08 mg/dL 0.57-1.25 Specimen slightly hemolyzed GLUCOSE RANDOM (BEAKER) (test code = 652) 294 mg/dL 70-105 H CALCIUM (BEAKER) (test code = 697) 7.9 mg/dL 8.4-10.2 L EGFR (BEAKER) (test code = 1092) 71 mL/min/1.73 sq m ESTIMATED GFR IS NOT ACCURATE CREATININE CLEARANCE IN PREDICTING GLOMERULAR FILTRATION RATE. ESTIMATED GFR IS NOT APPLICABLE FOR DIALYSIS PATIENTS. Marketing Strategy Manager ID - DBBLOOD GAS, [id number] 22:28:00* Test Item Value Reference Range Interpretation Comments PH ARTERIAL (BEAKER) (test code = 383) 7.35 7.35-7.45 PCO2 ARTERIAL (BEAKER) (test code = 384) 48 mmHg 35-45 H PO2 ARTERIAL (BEAKER) (test code = 385) 76 mmHg 80-90 L O2 SATURATION ARTERIAL (BEAKER) (test code = 386) 93.6 % 96.0 -97.0 L HCO3 ARTERIAL (BEAKER) (test code = 388) 26 mmol/L 21-29 BASE EXCESS ARTERIAL (BEAKER) (test code = 387) 0.2 mmol/L -2.0-3 .0 PATIENT TEMPERATURE (BEAKER) (test code = 1818) 38.0 C FIO2 (BEAKER) (test code = 1819) 45.0 % Oxygen saturation, [id number] 20:05:00* Test Item Value Reference Range Interpretation Comments O2 Saturation (Measured) (test code = 87253-5) 61.1 % [facility], [id number] 20:05:00* Test Item Value Reference Range Interpretation Comments O2 SATURATION (MEASURED) (BEAKER) (test code = 1455) 61.1 % (CELLAVISION MANUAL DIFF)2020-01-06 18:20:00* Test Item Value Reference Range Interpretation Comments NEUTROPHILS - REL (CELLAVISION)(BEAKER) (test code = 2816) 61 % LYMPHOCYTES - REL (CELLAVISION)(BEAKER) (test code = 2817) 23 % MONOCYTES - REL (CELLAVISION)(BEAKER) (test code = 2818) 6 % EOSINOPHILS - REL (CELLAVISION)(BEAKER) (test code = 2819) 2 % METAMYELOCYTES - REL (CELLAVISION)(BEAKER) (test code = 2821) 3 % 0-0 H MYELOCYTES - REL (CELLAVISION)(BEAKER) (test code = 2822) 5 % 0-0 H NEUTROPHILS - ABS (CELLAVISION)(BEAKER) (test code = 2830) 3.42 K/ul 1.78-5.38 LYMPHOCYTES - ABS (CELLAVISION)(BEAKER) (test code = 2831) 1.29 K/ul 1.32-3.57 L MONOCYTES - ABS (CELLAVISION)(BEAKER) (test code = 2832) 0.34 K/uL 0.30-0.82 EOSINOPHILS - ABS (CELLAVISION)(BEAKER) (test code = 2834) 0.11 K/uL 0.04-0.54 METAMYELOCYTES - ABS (CELLAVISION)(BEAKER) (test code = 2836 ) 0.17 K/uL 0.00-0.00 H MYELOCYTES-ABS (CELLAVISION)(BEAKER) (test code = 2837) 0.28 K/uL 0.00-0.00 H TOTAL COUNTED (BEAKER) (test code = 1351) 100 MANUAL NRBC PER 100 CELLS (BEAKER) (test code = 1353) 1 /100 WBC 0-0 H WBC MORPHOLOGY (BEAKER) (test code = 487) Normal GIANT PLATELETS (BEAKER) (test code = 313) Present POLYCHROMATOPHILLIC RBCS(BEAKER) (test code = 478) 1+ few ANISOCYTOSIS (BEAKER) (test code = 961) 1+ few MACROCYTES (BEAKER) (test code = 964) 1+ few ARTIFACT (CELLAVISION)(BEAKER) (test code = 3432) Present PLATELET CONCENTRATION (CELLAVISION)(BEAKER) (test code = 3438) Dec reased Marketing Strategy Manager ID - Enid Payne comments: Slide comments: TROPONIN [id number] 18:03:00* Test Item Value Reference Range Interpretation Comments TROPONIN I (BEAKER) (test code = 397) 0.14 ng/mL 0.00-0.03 H Troponin I (TnI) levels must be interpreted in the context of the presenting sym ptoms and the clinical findings. Elevated TnI levels indicate myocardial damage, but are not specific for ischemic heart disease. Elevated TnI levels are seen i n patients with other cardiac conditions (including myocarditis and congestive h eart failure), and slight TnI elevations occur in patients with other conditions , including sepsis, renal failure, acidosis, acute neurological disease, and per sistent tachyarrhythmia.Marketing Strategy Manager ID - NTPCOMPREHENSIVE METABOLIC [id number] 17:56:00* Test Item Value Reference Range Interpretation Comments TOTAL PROTEIN (BEAKER) (test code = 770) 6.6 gm/dL 6.0-8.3 ALBUMIN (BEAKER) (test code = 1145) 3.1 g/dL 3.5-5.0 L ALKALINE PHOSPHATASE (BEAKER) (test code = 346) 586 U/L 40-150 H BILIRUBIN TOTAL (BEAKER) (test code = 377) 0.9 mg/dL 0.2-1.2 SODIUM (BEAKER) (test code = 381) 136 meq/L 136-145 POTASSIUM (BEAKER) (test code = 379) 4.7 meq/L 3.5-5.1 CHLORIDE (BEAKER) (test code = 382) 105 meq/L 98-107 CO2 (BEAKER) (test code = 355) 26 meq/L 22-29 BLOOD UREA NITROGEN (BEAKER) (test code = 354) 40 mg/dL 7-21 H CREATININE (BEAKER) (test code = 358) 1.11 mg/dL 0.57-1.25 GLUCOSE RANDOM (BEAKER) (test code = 652) 231 mg/dL 70-105 H CALCIUM (BEAKER) (test code = 697) 8.4 mg/dL 8.4-10.2 AST (SGOT) (BEAKER) (test code = 353) 81 U/L 5-34 H ALT (SGPT) (BEAKER) (test code = 347) 103 U/L 6-55 H EGFR (BEAKER) (test code = 1092) 69 mL/min/1.73 sq m ESTIMATED GFR IS NOT ACCURATE CREATININE CLEARANCE IN PREDICTING GLOMERULAR FILTRATION RATE. ESTIMATED GFR IS NOT APPLICABLE FOR DIALYSIS PATIENTS. Marketing Strategy Manager ID - NTPLACTIC ACID, [id number] 17:50:00* Test Item Value Reference Range Interpretation Comments LACTATE BLOOD ARTERIAL (2) (BEAKER) (test code = 2874) 0.7 mmol/L 0.5-2.2 Specimen slightly hemolyzed Marketing Strategy Manager ID - NTPCBC W/PLT COUNT & AUTO [id number] 17:46:00* Test Item Value Reference Range Interpretation Comments WHITE BLOOD CELL COUNT (BEAKER) (test code = 775) 5.6 K/ L 3.5- 10.5 RED BLOOD CELL COUNT (BEAKER) (test code = 761) 2.76 M/ L 4.63-6 .08 L HEMOGLOBIN (BEAKER) (test code = 410) 8.5 GM/DL 13.7-17.5 L HEMATOCRIT (BEAKER) (test code = 411) 26.9 % 40.1-51.0 L MEAN CORPUSCULAR VOLUME (BEAKER) (test code = 753) 97.5 fL 79. 0-92.2 H MEAN CORPUSCULAR HEMOGLOBIN (BEAKER) (test code = 751) 30.8 pg 25.7-32.2 MEAN CORPUSCULAR HEMOGLOBIN CONC (BEAKER) (test code = 752) 31.6 GM/DL 32.3-36.5 L RED CELL DISTRIBUTION WIDTH (BEAKER) (test code = 412) 19.8 % 11.6-14.4 H PLATELET COUNT (BEAKER) (test code = 756) 52 K/CU MM 150-450 L MEAN PLATELET VOLUME (BEAKER) (test code = 754) 11.4 fL 9.4-12 .4 NUCLEATED RED BLOOD CELLS (BEAKER) (test code = 413) 1 /100 WBC 0 -0 H [id number] 17:45:00* Test Item Value Reference Range Interpretation Comments PARTIAL THROMBOPLASTIN TIME (BEAKER) (test code = 760) 44.8 seconds 22.5-36.0 H 4 hours after the start of continuous infusion and 4 hours after any rate change BLOOD GAS, [id number] 16:47:00* Test Item Value Reference Range Interpretation Comments PH ARTERIAL (BEAKER) (test code = 383) 7.38 7.35-7.45 PCO2 ARTERIAL (BEAKER) (test code = 384) 47 mmHg 35-45 H PO2 ARTERIAL (BEAKER) (test code = 385) 149 mmHg 80-90 H O2 SATURATION ARTERIAL (BEAKER) (test code = 386) 98.8 % 96.0 -97.0 H HCO3 ARTERIAL (BEAKER) (test code = 388) 27 mmol/L 21-29 BASE EXCESS ARTERIAL (BEAKER) (test code = 387) 1.9 mmol/L -2.0-3 .0 PATIENT TEMPERATURE (BEAKER) (test code = 1818) 37.3 C FIO2 (BEAKER) (test code = 1819) 45.0 % [id number] 16:42:00* Test Item Value Reference Range Interpretation Comments PHOSPHORUS (BEAKER) (test code = 604) 2.3 mg/dL 2.3-4.7 Marketing Strategy Manager ID - [id number] 16:42:00* Test Item Value Reference Range Interpretation Comments MAGNESIUM (BEAKER) (test code = 627) 2.0 mg/dL 1.6-2.6 Marketing Strategy Manager ID - NTPBASIC METABOLIC [id number] 16:42:00* Test Item Value Reference Range Interpretation Comments SODIUM (BEAKER) (test code = 381) 136 meq/L 136-145 POTASSIUM (BEAKER) (test code = 379) 4.6 meq/L 3.5-5.1 CHLORIDE (BEAKER) (test code = 382) 104 meq/L 98-107 CO2 (BEAKER) (test code = 355) 27 meq/L 22-29 BLOOD UREA NITROGEN (BEAKER) (test code = 354) 41 mg/dL 7-21 H CREATININE (BEAKER) (test code = 358) 1.10 mg/dL 0.57-1.25 GLUCOSE RANDOM (BEAKER) (test code = 652) 232 mg/dL 70-105 H CALCIUM (BEAKER) (test code = 697) 8.2 mg/dL 8.4-10.2 L EGFR (BEAKER) (test code = 1092) 69 mL/min/1.73 sq m ESTIMATED GFR IS NOT ACCURATE CREATININE CLEARANCE IN PREDICTING GLOMERULAR FILTRATION RATE. ESTIMATED GFR IS NOT APPLICABLE FOR DIALYSIS PATIENTS. Marketing Strategy Manager ID - NTPCALCIUM, [id number] 16:37:00* Test Item Value Reference Range Interpretation Comments CALCIUM IONIZED (BEAKER) (test code = 698) 1.10 mmol/L 1.12-1.27 L PH, BLOOD (BEAKER) (test code = 1810) 7.38 CT BRAIN WITHOUT IV CONTRAST - [id number] 14:59:00Anesthesia:-> NoneUnresponsiveFINAL REPORT CT BRAIN WITHOUT IV CONTRAST - PORTABLE CLINICAL INDICATION: Coma COMPARISON: None TECHNIQUE: Noncontrast axial CT imaging of the brain and skull. DOSE REDUCTION: Dose modulation, iterative reconstruction, and/or weight-based adjustment of the mA/kV was utilized to reduce the radiation dose to as low as reasonably achievable. FINDINGS:No intracranial hemorrhage, midline shift or mass effect. Midline structures are normally developed. Mild chronic microvascular ischemic changes of the periventricular and subcortical white matter are present. No hydrocephalus. Orbits are within normal limits. No obstructive paranasal sinus disease. IMPRESSION: No acute intracranial findings If there is persistent clinical concern for intracranial pathology, MR examination is recommended for further characterization. Signed: [facility] Verified Date/Time: 01/06/2020 14:59:43 Reading Location: [facility] B1 C013V Neuro Reading Room brain without IV contrast [id number] 14:59:00Interface, External Ris In - 01/06/2020 3:[address] BRAIN WITHOUT IV CONTRAST - PORTABLE CLINICAL INDICATION: Coma COMPARISON: None TECHNIQUE: Noncontrast axial CT imaging of the brain and skull. DOSE REDUCTION: Dose modulation, iterative reconstruction, and/or weight-based adjustment of the mA/kV was utilized to reduce the radiation dose to as low as reasonably achievable. FINDINGS:No intracranial hemorrhage, midline shift or mass effect. Midline structures are normally developed. Mild chronic microvascular ischemic changes of the periventricular and subcortical white matter are present. No hydrocephalus. Orbits are within normal limits. No obstructive paranasal sinus disease. IMPRESSION: No acute intracranial findings If there is persistent clin ical concern for intracranial pathology, MR examination is recommended for furth er characterization. Signed: Yosi Vidal MDReport Verified Date/Time: 01/05 14:59:43 Reading Location: [facility] C013V Neuro Reading Room [facility] CenterCeruloplasmin2020-[facility] 12:55:00* Test Item Value Reference Range Interpretation Comments Ceruloplasmin (test code = 2279000) 25 mg/dL 18-36 LOY (test code = LOY) Performing Lab *ANASTASIIA [employer] [facility], [address] [place] [id number] Christ Somers MD, PhD [facility] CenterBL[facility]OD GAS, [id number] 12:26:00* Test Item Value Reference Range Interpretation Comments PH ARTERIAL (BEAKER) (test code = 383) 7.43 7.35-7.45 PCO2 ARTERIAL (BEAKER) (test code = 384) 40 mm Hg 35-45 PO2 ARTERIAL (BEAKER) (test code = 385) 100 mm Hg 80-90 H O2 SATURATION ARTERIAL (BEAKER) (test code = 386) 97.8 % 96.0 -97.0 H HCO3 ARTERIAL (BEAKER) (test code = 388) 26 mmol/L 21-29 BASE EXCESS ARTERIAL (BEAKER) (test code = 387) 1.3 mmol/L -2.0-3 .0 PATIENT TEMPERATURE (BEAKER) (test code = 1818) 36.8 FIO2 (BEAKER) (test code = 1819) 40 POCT-GLUCOSE [id number] 12:06:00* Test Item Value Reference Range Interpretation Comments POC-GLUCOSE METER (BEAKER) (test code = 1538) 276 mg/dL 70-110 H : TESTED AT [facility] [address] [place] [address], [address]: Marketing Strategy Manager/Clinical Laboratory Technician ID = [id number] for SAHIL KELLY SPUTUM CULTURE + GRAM [id number] 10:21:00* Test Item Value Reference Range Interpretation Comments CULTURE (BEAKER) (test code = 1095) 2+ Normal respiratory stacie pre sent GRAM STAIN RESULT (BEAKER) (test code = 1123) 4+ WBCs GRAM STAIN RESULT (BEAKER) (test code = 65644) 0-5 epithelial cells GRAM STAIN RESULT (BEAKER) (test code = 22935) 1+ gram positive chip ci CMV PCR, [id number] 10:10:00* Test Item Value Reference Range Interpretation Comments CMV DNA Viral Load (test code = 2558) Negative or belo w the linear range of the assay (<375 copies/mL) <375- >375,000 copies/mL LOY (test code = LOY) Cytomegalovirus (CMV) infect ion can cause significant disease in immunosuppressed patients. However, it is common for CMV to manifest as a limited infection which is of no clinical significance in immunosuppressed patients or in healthy individuals. Viral load measurements are helpful to identify clinical CMV infection and to guide the pre-emptive management of antiviral therapy. For treatment of CMV infection due to reactivation in transplant recipients, a threshold between 4,000 and 5,000 copies/mL is suggested. For treatment of primary CMV infection, a lower threshold can be used. CMV infection may also be monitored using weekly serial measurements. Serial measurements of CMV DNA viral load can be evaluated by identifying a 10- fold change, as well as assessing the CMV DNA viral load and the clinical context for each patient. The plasma CMV DNA viral load was detected using quantitative polymerase chain reaction and fluorescent monitoring of a specific hybridized probe. Genetic variation and other factors can affect the accuracy of nucleic acid testing. Therefore, the results should be interpreted in light of clinical data. A negative result may not exclude the presence of CMV disease. T his test was developed and its performance characteristics determined by the [facility] Pathology Department, Section of Molecular Pathology. It has not been cleared or approved by the [place]. Food and Drug Administration (FDA), since FDA approval is not required for clinical use of the test. Validation was done as required by The Clinical Laboratory Improvement Amendments of 1988. [facility], [id number] 10:10:00* Test Item Value Reference Range Interpretation Comments CMV VIRAL LOAD - NEGATIVE (BEAKER) (test code = 2558) Negative or below the linear range of the assay (<375 copies/mL) <375- >375,000 copies/mL Cytomegalovirus (CMV) infection can cause significant disease in immunosuppresse d patients. However, it is common for CMV to manifest as a limited infection whi ch is of no clinical significance in immunosuppressed patients or in healthy ind ividuals.Viral load measurements are helpful to identify clinical CMV infection and to guide the pre-emptive management of antiviral therapy. For treatment of CMV infection due to reactivation in transplant recipients, a threshold between 4,000 and 5,000 copies/mL is suggested. For treatment of primary CMV infection, a lower threshold can be used.CMV infection may also be monitored using weekly serial measurements. Serial measurements of CMV DNA viral load can be evaluated by identifying a 10-fold change, as well as assessing the CMV DNA viral load and the clinical context for each patient.The plasma CMV DNA viral load was detecte d using quantitative polymerase chain reaction and fluorescent monitoring of a s pecific hybridized probe. Genetic variation and other factors can affect the acc uracy of nucleic acid testing. Therefore, the results should be interpreted in l ight of clinical data. A negative result may not exclude the presence of CMV dis ease.This test was developed and its performance characteristics determined by sabino quiroz [facility] Pathology Department, Section of Molecular Patholog y. It has not been cleared or approved by the U.S. Food and Drug Administration (FDA), since FDA approval is not required for clinical use of the test. Validati on was done as required by The Clinical Laboratory Improvement Amendments of 198 8.[id number] 09:14:00* Test Item Value Reference Range Interpretation Comments PHOSPHORUS (BEAKER) (test code = 604) 2.9 mg/dL 2.3-4.7 Marketing Strategy Manager ID - [id number] 09:14:00* Test Item Value Reference Range Interpretation Comments MAGNESIUM (BEAKER) (test code = 627) 2.1 mg/dL 1.6-2.6 Marketing Strategy Manager ID - NTPBASIC METABOLIC [id number] 09:14:00* Test Item Value Reference Range Interpretation Comments SODIUM (BEAKER) (test code = 381) 135 meq/L 136-145 L POTASSIUM (BEAKER) (test code = 379) 4.5 meq/L 3.5-5.1 CHLORIDE (BEAKER) (test code = 382) 104 meq/L 98-107 CO2 (BEAKER) (test code = 355) 24 meq/L 22-29 BLOOD UREA NITROGEN (BEAKER) (test code = 354) 36 mg/dL 7-21 H CREATININE (BEAKER) (test code = 358) 0.97 mg/dL 0.57-1.25 GLUCOSE RANDOM (BEAKER) (test code = 652) 298 mg/dL 70-105 H CALCIUM (BEAKER) (test code = 697) 8.4 mg/dL 8.4-10.2 EGFR (BEAKER) (test code = 1092) 80 mL/min/1.73 sq m ESTIMATED GFR IS NOT ACCURATE CREATININE CLEARANCE IN PREDICTING GLOMERULAR FILTRATION RATE. ESTIMATED GFR IS NOT APPLICABLE FOR DIALYSIS PATIENTS. Marketing Strategy Manager ID - [id number] 08:39:00* Test Item Value Reference Range Interpretation Comments PARTIAL THROMBOPLASTIN TIME (BEAKER) (test code = 760) 61.7 seconds 22.5-36.0 H CALCIUM, [id number] 08:30:00* Test Item Value Reference Range Interpretation Comments CALCIUM IONIZED (BEAKER) (test code = 698) 1.13 mmol/L 1.12-1.27 PH, BLOOD (BEAKER) (test code = 1810) 7.43 [id number] 07:42:00* Test Item Value Reference Range Interpretation Comments FERRITIN (BEAKER) (test code = 361) 1496.95 ng/mL 5.00-275.00 H Marketing Strategy Manager ID - NTPPOCT-GLUCOSE [id number] 06:22:00* Test Item Value Reference Range Interpretation Comments POC-GLUCOSE METER (BEAKER) (test code = 1538) 284 mg/dL 70-110 H : TESTED AT [address], [address]: Marketing Strategy Manager/Clinical Laboratory Technician ID = [id number] for Liv Dugan [id number] 05:34:00* Test Item Value Reference Range Interpretation Comments PROCALCITONIN (BEAKER) (test code = 3036) 0.69 ng/mL <0.05 H SEPSIS RISK (ng/mL)Low: 0.05-0.50Intermediate: 0.51-2.00High: > =[id number] 04:54:00* Test Item Value Reference Range Interpretation Comments PHOSPHORUS (BEAKER) (test code = 604) 3.9 mg/dL 2.3-4.7 Marketing Strategy Manager ID - [id number] 04:54:00* Test Item Value Reference Range Interpretation Comments MAGNESIUM (BEAKER) (test code = 627) 2.0 mg/dL 1.6-2.6 Marketing Strategy Manager ID - EDASIHEPATIC FUNCTION [id number] 04:54:00* Test Item Value Reference Range Interpretation Comments TOTAL PROTEIN (BEAKER) (test code = 770) 6.5 gm/dL 6.0-8.3 ALBUMIN (BEAKER) (test code = 1145) 3.1 g/dL 3.5-5.0 L BILIRUBIN TOTAL (BEAKER) (test code = 377) 0.8 mg/dL 0.2-1.2 BILIRUBIN DIRECT (BEAKER) (test code = 706) 0.6 mg/dL 0.1-0.5 H ALKALINE PHOSPHATASE (BEAKER) (test code = 346) 536 U/L 40-150 H AST (SGOT) (BEAKER) (test code = 353) 52 U/L 5-34 H ALT (SGPT) (BEAKER) (test code = 347) 84 U/L 6-55 H Marketing Strategy Manager ID - EDASICOMPREHENSIVE METABOLIC [id number] 04:54:00* Test Item Value Reference Range Interpretation Comments TOTAL PROTEIN (BEAKER) (test code = 770) 6.5 gm/dL 6.0-8.3 ALBUMIN (BEAKER) (test code = 1145) 3.1 g/dL 3.5-5.0 L ALKALINE PHOSPHATASE (BEAKER) (test code = 346) 536 U/L 40-150 H BILIRUBIN TOTAL (BEAKER) (test code = 377) 0.8 mg/dL 0.2-1.2 SODIUM (BEAKER) (test code = 381) 137 meq/L 136-145 POTASSIUM (BEAKER) (test code = 379) 4.5 meq/L 3.5-5.1 CHLORIDE (BEAKER) (test code = 382) 104 meq/L 98-107 CO2 (BEAKER) (test code = 355) 27 meq/L 22-29 BLOOD UREA NITROGEN (BEAKER) (test code = 354) 37 mg/dL 7-21 H CREATININE (BEAKER) (test code = 358) 1.03 mg/dL 0.57-1.25 GLUCOSE RANDOM (BEAKER) (test code = 652) 321 mg/dL 70-105 H CALCIUM (BEAKER) (test code = 697) 8.5 mg/dL 8.4-10.2 AST (SGOT) (BEAKER) (test code = 353) 52 U/L 5-34 H ALT (SGPT) (BEAKER) (test code = 347) 84 U/L 6-55 H EGFR (BEAKER) (test code = 1092) 75 mL/min/1.73 sq m ESTIMATED GFR IS NOT ACCURATE CREATININE CLEARANCE IN PREDICTING GLOMERULAR FILTRATION RATE. ESTIMATED GFR IS NOT APPLICABLE FOR DIALYSIS PATIENTS. Marketing Strategy Manager ID - EDASILACTATE DEHYDROGENASE (LDH)2020-01-06 04:54:00* Test Item Value Reference Range Interpretation Comments LACTATE DEHYDROGENASE (BEAKER) (test code = 635) 312 U/L 125-2 20 H Marketing Strategy Manager ID - EDASIC-REACTIVE [id number] 04:54:00* Test Item Value Reference Range Interpretation Comments C-REACTIVE PROTEIN (BEAKER) (test code = 676) 8.57 mg/dL 0.00-0.5 0 H Marketing Strategy Manager ID - EDASIBLOOD GAS, [id number] 04:42:00* Test Item Value Reference Range Interpretation Comments PH ARTERIAL (BEAKER) (test code = 383) 7.38 7.35-7.45 PCO2 ARTERIAL (BEAKER) (test code = 384) 47 mmHg 35-45 H PO2 ARTERIAL (BEAKER) (test code = 385) 89 mmHg 80-90 O2 SATURATION ARTERIAL (BEAKER) (test code = 386) 96.6 % 96.0 -97.0 HCO3 ARTERIAL (BEAKER) (test code = 388) 27 mmol/L 21-29 BASE EXCESS ARTERIAL (BEAKER) (test code = 387) 1.3 mmol/L -2.0-3 .0 PATIENT TEMPERATURE (BEAKER) (test code = 1818) 37.0 C FIO2 (BEAKER) (test code = 1819) 50.0 % CBC W/PLT COUNT & AUTO [id number] 04:33:00* Test Item Value Reference Range Interpretation Comments WHITE BLOOD CELL COUNT (BEAKER) (test code = 775) 4.0 K/ L 3.5- 10.5 RED BLOOD CELL COUNT (BEAKER) (test code = 761) 2.76 M/ L 4.63-6 .08 L HEMOGLOBIN (BEAKER) (test code = 410) 8.5 GM/DL 13.7-17.5 L HEMATOCRIT (BEAKER) (test code = 411) 26.6 % 40.1-51.0 L MEAN CORPUSCULAR VOLUME (BEAKER) (test code = 753) 96.4 fL 79. 0-92.2 H MEAN CORPUSCULAR HEMOGLOBIN (BEAKER) (test code = 751) 30.8 pg 25.7-32.2 MEAN CORPUSCULAR HEMOGLOBIN CONC (BEAKER) (test code = 752) 32.0 GM/DL 32.3-36.5 L RED CELL DISTRIBUTION WIDTH (BEAKER) (test code = 412) 19.6 % 11.6-14.4 H PLATELET COUNT (BEAKER) (test code = 756) 45 K/CU MM 150-450 L MEAN PLATELET VOLUME (BEAKER) (test code = 754) 11.9 fL 9.4-12 .4 NUCLEATED RED BLOOD CELLS (BEAKER) (test code = 413) 0 /100 WBC 0 -0 NEUTROPHILS RELATIVE PERCENT (BEAKER) (test code = 429) 67 % LYMPHOCYTES RELATIVE PERCENT (BEAKER) (test code = 430) 12 % MONOCYTES RELATIVE PERCENT (BEAKER) (test code = 431) 13 % EOSINOPHILS RELATIVE PERCENT (BEAKER) (test code = 432) 3 % BASOPHILS RELATIVE PERCENT (BEAKER) (test code = 437) 1 % NEUTROPHILS ABSOLUTE COUNT (BEAKER) (test code = 670) 2.66 K/ L 1.78-5.38 LYMPHOCYTES ABSOLUTE COUNT (BEAKER) (test code = 414) 0.49 K/ L 1.32-3.57 L MONOCYTES ABSOLUTE COUNT (BEAKER) (test code = 415) 0.51 K/ L 0. 30-0.82 EOSINOPHILS ABSOLUTE COUNT (BEAKER) (test code = 416) 0.11 K/ L 0.04-0.54 BASOPHILS ABSOLUTE COUNT (BEAKER) (test code = 417) 0.02 K/ L 0. 01-0.08 IMMATURE GRANULOCYTES-RELATIVE PERCENT (BEAKER) (test code = 2801) 5 % 0-1 H [id number] 01:30:00* Test Item Value Reference Range Interpretation Comments PARTIAL THROMBOPLASTIN TIME (BEAKER) (test code = 760) 49.8 seconds 22.5-36.0 H 4 hours after the start of continuous infusion and 4 hours after any rate change [id number] 00:39:00* Test Item Value Reference Range Interpretation Comments PHOSPHORUS (BEAKER) (test code = 604) 3.3 mg/dL 2.3-4.7 Specimen slightly hemolyzed Marketing Strategy Manager ID - BSBASIC METABOLIC [id number] 00:39:00* Test Item Value Reference Range Interpretation Comments SODIUM (BEAKER) (test code = 381) 134 meq/L 136-145 L POTASSIUM (BEAKER) (test code = 379) 4.7 meq/L 3.5-5.1 Specimen slightly hemolyzed CHLORIDE (BEAKER) (test code = 382) 104 meq/L 98-107 CO2 (BEAKER) (test code = 355) 23 meq/L 22-29 BLOOD UREA NITROGEN (BEAKER) (test code = 354) 36 mg/dL 7-21 H CREATININE (BEAKER) (test code = 358) 1.02 mg/dL 0.57-1.25 Specimen slightly hemolyzed GLUCOSE RANDOM (BEAKER) (test code = 652) 297 mg/dL 70-105 H CALCIUM (BEAKER) (test code = 697) 8.4 mg/dL 8.4-10.2 EGFR (BEAKER) (test code = 1092) 76 mL/min/1.73 sq m ESTIMATED GFR IS NOT ACCURATE CREATININE CLEARANCE IN PREDICTING GLOMERULAR FILTRATION RATE. ESTIMATED GFR IS NOT APPLICABLE FOR DIALYSIS PATIENTS. Marketing Strategy Manager ID - BSCALCIUM, [id number] 00:18:00* Test Item Value Reference Range Interpretation Comments CALCIUM IONIZED (BEAKER) (test code = 698) 1.13 mmol/L 1.12-1.27 PH, BLOOD (BEAKER) (test code = 1810) 7.40 POCT-GLUCOSE [id number] 00:11:00* Test Item Value Reference Range Interpretation Comments POC-GLUCOSE METER (BEAKER) (test code = 1538) 264 mg/dL 70-110 H : TESTED AT [facility] [address] [facility] [place], [address]: Marketing Strategy Manager/Clinical Laboratory Technician ID = [id number] for Liv Dugan BLOOD GAS, [id number] 22:33:00* Test Item Value Reference Range Interpretation Comments PH ARTERIAL (BEAKER) (test code = 383) 7.42 7.35-7.45 PCO2 ARTERIAL (BEAKER) (test code = 384) 40 mmHg 35-45 PO2 ARTERIAL (BEAKER) (test code = 385) 67 mmHg 80-90 L O2 SATURATION ARTERIAL (BEAKER) (test code = 386) 93.7 % 96.0 -97.0 L HCO3 ARTERIAL (BEAKER) (test code = 388) 26 mmol/L 21-29 BASE EXCESS ARTERIAL (BEAKER) (test code = 387) 1.0 mmol/L -2.0-3 .0 PATIENT TEMPERATURE (BEAKER) (test code = 1818) 37.0 C FIO2 (BEAKER) (test code = 1819) 45.0 % [id number] 18:58:00* Test Item Value Reference Range Interpretation Comments PARTIAL THROMBOPLASTIN TIME (BEAKER) (test code = 760) 47.9 seconds 22.5-36.0 H 4 hours after the start of continuous infusion and 4 hours after any rate change Toxicology screen, [id number] 18:43:00* Test Item Value Reference Range Interpretation Comments DRUG TEST, GENERAL TOXICOLOGY, URINE,QUEST (test code = 3052) see n ote The following compounds were detected: Hydromorphone Norketamine (Ketamine Metabolite) Ketamine For a list of compounds and limits of detection go to:http://education.lemonade.uk.Desi Hits/faq/UTV287 This test was developed and its analytical performancecharacteristics have been determined by [facility] [place], [place]. It hasnot been cleared or approved by the U.S. Food and DrugAdministration. This assay has been validated pursuantto the CLIA regulations and is used for clinicalpurposes. ACETONE (QUEST) (test code = 7952870) None Detected METHANOL(QUEST) (test code = 8639798) None Detected Isopropanol(Quest) (test code = 3055) None Detected ETHANOL (test code = 2968) None Detected Volatile Limit of Detection: 5 mg/dL LOY (test code = LOY) Performing Lab [facility], [address] [place] [address] Kaylah Heaton MD, PhD [facility] [id number] 17:59:00* Test Item Value Reference Range Interpretation Comments POC-GLUCOSE METER (BEAKER) (test code = 1538) 281 mg/dL 70-110 H : TESTED AT [facility] [address] [place], [address]: Marketing Strategy Manager/Clinical Laboratory Technician ID = [id number] for SAHIL KELLY [id number] 17:24:00* Test Item Value Reference Range Interpretation Comments PHOSPHORUS (BEAKER) (test code = 604) 1.5 mg/dL 2.3-4.7 LL Marketing Strategy Manager ID - [id number] 17:14:00* Test Item Value Reference Range Interpretation Comments MAGNESIUM (BEAKER) (test code = 627) 1.9 mg/dL 1.6-2.6 Marketing Strategy Manager ID - BSBASIC METABOLIC [id number] 17:14:00* Test Item Value Reference Range Interpretation Comments SODIUM (BEAKER) (test code = 381) 135 meq/L 136-145 L POTASSIUM (BEAKER) (test code = 379) 4.7 meq/L 3.5-5.1 CHLORIDE (BEAKER) (test code = 382) 104 meq/L 98-107 CO2 (BEAKER) (test code = 355) 27 meq/L 22-29 BLOOD UREA NITROGEN (BEAKER) (test code = 354) 36 mg/dL 7-21 H CREATININE (BEAKER) (test code = 358) 1.02 mg/dL 0.57-1.25 GLUCOSE RANDOM (BEAKER) (test code = 652) 316 mg/dL 70-105 H CALCIUM (BEAKER) (test code = 697) 8.5 mg/dL 8.4-10.2 EGFR (BEAKER) (test code = 1092) 76 mL/min/1.73 sq m ESTIMATED GFR IS NOT ACCURATE CREATININE CLEARANCE IN PREDICTING GLOMERULAR FILTRATION RATE. ESTIMATED GFR IS NOT APPLICABLE FOR DIALYSIS PATIENTS. Marketing Strategy Manager ID - BSCALCIUM, [id number] 16:53:00* Test Item Value Reference Range Interpretation Comments CALCIUM IONIZED (BEAKER) (test code = 698) 1.14 mmol/L 1.12-1.27 PH, BLOOD (BEAKER) (test code = 1810) 7.43 BLOOD GAS, [id number] 15:16:00* Test Item Value Reference Range Interpretation Comments PH ARTERIAL (BEAKER) (test code = 383) 7.45 7.35-7.45 PCO2 ARTERIAL (BEAKER) (test code = 384) 38 mmHg 35-45 PO2 ARTERIAL (BEAKER) (test code = 385) 112 mmHg 80-90 H O2 SATURATION ARTERIAL (BEAKER) (test code = 386) 98.4 % 96.0 -97.0 H HCO3 ARTERIAL (BEAKER) (test code = 388) 26 mmol/L 21-29 BASE EXCESS ARTERIAL (BEAKER) (test code = 387) 1.5 mmol/L -2.0-3 .0 PATIENT TEMPERATURE (BEAKER) (test code = 1818) 36.4 C FIO2 (BEAKER) (test code = 1819) 40.0 % [id number] 13:47:00* Test Item Value Reference Range Interpretation Comments MAGNESIUM (BEAKER) (test code = 627) 1.9 mg/dL 1.6-2.6 Marketing Strategy Manager ID - [id number] 13:04:00* Test Item Value Reference Range Interpretation Comments PHOSPHORUS (BEAKER) (test code = 604) 1.8 mg/dL 2.3-4.7 L Marketing Strategy Manager ID - NTPBASIC METABOLIC [id number] 13:04:00* Test Item Value Reference Range Interpretation Comments SODIUM (BEAKER) (test code = 381) 135 meq/L 136-145 L POTASSIUM (BEAKER) (test code = 379) 4.9 meq/L 3.5-5.1 CHLORIDE (BEAKER) (test code = 382) 104 meq/L 98-107 CO2 (BEAKER) (test code = 355) 26 meq/L 22-29 BLOOD UREA NITROGEN (BEAKER) (test code = 354) 33 mg/dL 7-21 H CREATININE (BEAKER) (test code = 358) 1.03 mg/dL 0.57-1.25 GLUCOSE RANDOM (BEAKER) (test code = 652) 341 mg/dL 70-105 H CALCIUM (BEAKER) (test code = 697) 8.2 mg/dL 8.4-10.2 L EGFR (BEAKER) (test code = 1092) 75 mL/min/1.73 sq m ESTIMATED GFR IS NOT ACCURATE CREATININE CLEARANCE IN PREDICTING GLOMERULAR FILTRATION RATE. ESTIMATED GFR IS NOT APPLICABLE FOR DIALYSIS PATIENTS. Marketing Strategy Manager ID - NTPBASIC METABOLIC [id number] 12:32:00* Test Item Value Reference Range Interpretation Comments SODIUM (BEAKER) (test code = 381) 134 meq/L 136-145 L POTASSIUM (BEAKER) (test code = 379) 4.4 meq/L 3.5-5.1 CHLORIDE (BEAKER) (test code = 382) 108 meq/L 98-107 H CO2 (BEAKER) (test code = 355) 21 meq/L 22-29 L BLOOD UREA NITROGEN (BEAKER) (test code = 354) 31 mg/dL 7-21 H CREATININE (BEAKER) (test code = 358) 0.91 mg/dL 0.57-1.25 GLUCOSE RANDOM (BEAKER) (test code = 652) 319 mg/dL 70-105 H CALCIUM (BEAKER) (test code = 697) 7.4 mg/dL 8.4-10.2 L EGFR (BEAKER) (test code = 1092) 86 mL/min/1.73 sq m ESTIMATED GFR IS NOT ACCURATE CREATININE CLEARANCE IN PREDICTING GLOMERULAR FILTRATION RATE. ESTIMATED GFR IS NOT APPLICABLE FOR DIALYSIS PATIENTS. Marketing Strategy Manager ID - NTPPOCT-GLUCOSE [id number] 12:26:00* Test Item Value Reference Range Interpretation Comments POC-GLUCOSE METER (BEAKER) (test code = 1538) 226 mg/dL 70-110 H : TESTED AT [facility] [address] [facility], [address]: Marketing Strategy Manager/Clinical Laboratory Technician ID = [id number] for SAHIL KELLY [id number] 12:25:00* Test Item Value Reference Range Interpretation Comments PHOSPHORUS (BEAKER) (test code = 604) 1.8 mg/dL 2.3-4.7 L Marketing Strategy Manager ID - [id number] 12:25:00* Test Item Value Reference Range Interpretation Comments MAGNESIUM (BEAKER) (test code = 627) 1.7 mg/dL 1.6-2.6 Marketing Strategy Manager ID - [id number] 12:19:00* Test Item Value Reference Range Interpretation Comments Scan Result (test code = 0461000) [facility] [id number] 12:19:00* Test Item Value Reference Range Interpretation Comments SCAN RESULT (test code = 0951218) 37 CALCIUM, [id number] 10:04:00* Test Item Value Reference Range Interpretation Comments CALCIUM IONIZED (BEAKER) (test code = 698) 1.12 mmol/L 1.12-1.27 PH, BLOOD (BEAKER) (test code = 1810) 7.33 POCT-GLUCOSE [id number] 07:02:00* Test Item Value Reference Range Interpretation Comments POC-GLUCOSE METER (BEAKER) (test code = 1538) 317 mg/dL 70-110 H : TESTED AT [address], [address]: Marketing Strategy Manager/Clinical Laboratory Technician ID = [id number] for MARIYA BAEZA BLOOD [id number] 05:00:00* Test Item Value Reference Range Interpretation Comments CULTURE (BEAKER) (test code = 1095) No growth in 5 days BLOOD [id number] 05:00:00* Test Item Value Reference Range Interpretation Comments CULTURE (BEAKER) (test code = 1095) No growth in 5 days [id number] 03:52:00* Test Item Value Reference Range Interpretation Comments PROTIME (BEAKER) (test code = 759) 18.7 seconds 11.9-14.2 H INR (BEAKER) (test code = 370) 1.6 <=5.9 PARTIAL THROMBOPLASTIN TIME (BEAKER) (test code = 760) 69.9 seconds 22.5-36.0 H Effective 11/04/2018: PT Reference Range ChangeNew: 11.9-14.2 Previous: 11.7-14. 7RECOMMENDED COUMADIN/WARFARIN INR THERAPY RANGESSTANDARD DOSE: 2.0-3.0 Include s: PROPHYLAXIS for venous thrombosis, systemic embolization; TREATMENT for venou s thrombosis and/or pulmonary embolus.HIGH RISK: Target INR is 2.5-3.5 for patie nts wiht mechanical heart valves.4 hours after the start of continuous infusion and 4 hours after any rate change4 hours after the start of continuous infusion and 4 hours after any rate [id number] 03:52:00* Test Item Value Reference Range Interpretation Comments PARTIAL THROMBOPLASTIN TIME (BEAKER) (test code = 760) 69.9 seconds 22.5-36.0 H [id number] 03:47:00* Test Item Value Reference Range Interpretation Comments PHOSPHORUS (BEAKER) (test code = 604) 3.8 mg/dL 2.3-4.7 Marketing Strategy Manager ID - [id number] 03:47:00* Test Item Value Reference Range Interpretation Comments MAGNESIUM (BEAKER) (test code = 627) 2.1 mg/dL 1.6-2.6 Marketing Strategy Manager ID - EDASIHEPATIC FUNCTION [id number] 03:47:00* Test Item Value Reference Range Interpretation Comments TOTAL PROTEIN (BEAKER) (test code = 770) 6.4 gm/dL 6.0-8.3 ALBUMIN (BEAKER) (test code = 1145) 2.7 g/dL 3.5-5.0 L BILIRUBIN TOTAL (BEAKER) (test code = 377) 0.8 mg/dL 0.2-1.2 BILIRUBIN DIRECT (BEAKER) (test code = 706) 0.6 mg/dL 0.1-0.5 H ALKALINE PHOSPHATASE (BEAKER) (test code = 346) 583 U/L 40-150 H AST (SGOT) (BEAKER) (test code = 353) 44 U/L 5-34 H ALT (SGPT) (BEAKER) (test code = 347) 91 U/L 6-55 H Marketing Strategy Manager ID - EDASICOMPREHENSIVE METABOLIC [id number] 03:47:00* Test Item Value Reference Range Interpretation Comments TOTAL PROTEIN (BEAKER) (test code = 770) 6.4 gm/dL 6.0-8.3 ALBUMIN (BEAKER) (test code = 1145) 2.7 g/dL 3.5-5.0 L ALKALINE PHOSPHATASE (BEAKER) (test code = 346) 583 U/L 40-150 H BILIRUBIN TOTAL (BEAKER) (test code = 377) 0.8 mg/dL 0.2-1.2 SODIUM (BEAKER) (test code = 381) 134 meq/L 136-145 L POTASSIUM (BEAKER) (test code = 379) 5.0 meq/L 3.5-5.1 CHLORIDE (BEAKER) (test code = 382) 103 meq/L 98-107 CO2 (BEAKER) (test code = 355) 24 meq/L 22-29 BLOOD UREA NITROGEN (BEAKER) (test code = 354) 31 mg/dL 7-21 H CREATININE (BEAKER) (test code = 358) 1.07 mg/dL 0.57-1.25 GLUCOSE RANDOM (BEAKER) (test code = 652) 316 mg/dL 70-105 H CALCIUM (BEAKER) (test code = 697) 8.9 mg/dL 8.4-10.2 AST (SGOT) (BEAKER) (test code = 353) 44 U/L 5-34 H ALT (SGPT) (BEAKER) (test code = 347) 91 U/L 6-55 H EGFR (BEAKER) (test code = 1092) 72 mL/min/1.73 sq m ESTIMATED GFR IS NOT ACCURATE CREATININE CLEARANCE IN PREDICTING GLOMERULAR FILTRATION RATE. ESTIMATED GFR IS NOT APPLICABLE FOR DIALYSIS PATIENTS. Marketing Strategy Manager ID - EDASIBLOOD GAS, [id number] 03:43:00* Test Item Value Reference Range Interpretation Comments PH ARTERIAL (BEAKER) (test code = 383) 7.29 7.35-7.45 L PCO2 ARTERIAL (BEAKER) (test code = 384) 56 mmHg 35-45 H PO2 ARTERIAL (BEAKER) (test code = 385) 99 mmHg 80-90 H O2 SATURATION ARTERIAL (BEAKER) (test code = 386) 96.8 % 96.0 -97.0 HCO3 ARTERIAL (BEAKER) (test code = 388) 26 mmol/L 21-29 BASE EXCESS ARTERIAL (BEAKER) (test code = 387) -0.7 mmol/L -2.0-3 .0 PATIENT TEMPERATURE (BEAKER) (test code = 1818) 36.9 C FIO2 (BEAKER) (test code = 1819) 50.0 % CBC W/PLT COUNT & AUTO [id number] 03:31:00* Test Item Value Reference Range Interpretation Comments WHITE BLOOD CELL COUNT (BEAKER) (test code = 775) 4.5 K/ L 3.5- 10.5 RED BLOOD CELL COUNT (BEAKER) (test code = 761) 3.10 M/ L 4.63-6 .08 L HEMOGLOBIN (BEAKER) (test code = 410) 9.4 GM/DL 13.7-17.5 L HEMATOCRIT (BEAKER) (test code = 411) 29.6 % 40.1-51.0 L MEAN CORPUSCULAR VOLUME (BEAKER) (test code = 753) 95.5 fL 79. 0-92.2 H MEAN CORPUSCULAR HEMOGLOBIN (BEAKER) (test code = 751) 30.3 pg 25.7-32.2 MEAN CORPUSCULAR HEMOGLOBIN CONC (BEAKER) (test code = 752) 31.8 GM/DL 32.3-36.5 L RED CELL DISTRIBUTION WIDTH (BEAKER) (test code = 412) 19.1 % 11.6-14.4 H PLATELET COUNT (BEAKER) (test code = 756) 75 K/CU MM 150-450 L MEAN PLATELET VOLUME (BEAKER) (test code = 754) 12.0 fL 9.4-12 .4 NUCLEATED RED BLOOD CELLS (BEAKER) (test code = 413) 0 /100 WBC 0 -0 NEUTROPHILS RELATIVE PERCENT (BEAKER) (test code = 429) 69 % LYMPHOCYTES RELATIVE PERCENT (BEAKER) (test code = 430) 12 % MONOCYTES RELATIVE PERCENT (BEAKER) (test code = 431) 12 % EOSINOPHILS RELATIVE PERCENT (BEAKER) (test code = 432) 3 % BASOPHILS RELATIVE PERCENT (BEAKER) (test code = 437) 0 % NEUTROPHILS ABSOLUTE COUNT (BEAKER) (test code = 670) 3.08 K/ L 1.78-5.38 LYMPHOCYTES ABSOLUTE COUNT (BEAKER) (test code = 414) 0.54 K/ L 1.32-3.57 L MONOCYTES ABSOLUTE COUNT (BEAKER) (test code = 415) 0.55 K/ L 0. 30-0.82 EOSINOPHILS ABSOLUTE COUNT (BEAKER) (test code = 416) 0.15 K/ L 0.04-0.54 BASOPHILS ABSOLUTE COUNT (BEAKER) (test code = 417) 0.02 K/ L 0. 01-0.08 IMMATURE GRANULOCYTES-RELATIVE PERCENT (BEAKER) (test code = 2801) 3 % 0-1 H BLOOD CULTURE IDENTIFICATION [id number] 00:53:00* Test Item Value Reference Range Interpretation Comments LISTERIA MONOCYTOGENES (test code = 9370952) Not detected Not detec dio STAPHYLOCOCCUS (test code = 5122773) Detected Not detected A Coagulase negative Staph species (CoNS)- methicillin resistantFirst-line therapy: Vancomycin MecA DETECTED Possible contamination. The likelihood of pathogenicity is increased if the organism is observed in multiple blood cultures obtained from separate venipunctures. Reference Range: Not Detected STAPHYLOCOCCUS AUREUS (test code = 6868663) Not detected Not detect ed STREPTOCOCCUS (test code = 1212511) Not detected Not detected STREPTOCOCCUS AGALACTIAE (GROUP B) (test code = 8481336) Not detected Not detected STREPTOCOCCUS PNEUMONIAE (test code = 0868778) Not detected Not det ected STREPTOCOCCUS PYOGENES (GROUP A) (test code = 4341699) Not d etected Not detected ACINETOBACTER BAUMANNII (test code = 0695631) Not detected Not dete cted HAEMOPHILUS INFLUENZAE (test code = 2621288) Not detected Not detec dio NEISSERIA MENINGITIDIS (test code = 9090345) Not detected Not detec dio ENTEROBACTERIACEAE (test code = 3115601) Not detected Not detected ENTEROBACTER CLOACOE COMPLEX (test code = 2930782) Not detected Not detected KLEBSIELLA OXYTOCA (test code = 0486400) Not detected Not detected KLEBSIELLA PNEUMONIAE (test code = 1650) Not detected Not detected PROTEUS (test code = 4527661) Not detected Not detected SERRATIA MARCESCENS (test code = 8213047) Not detected Not detected ERIKA ALBICANS (test code = 8314416) Not detected Not detected ERIKA GLABRATA (test code = 6321916) Not detected Not detected ERIKA KRUSEI (test code = 6746824) Not detected Not detected ERIKA PARAPSILOSIS (test code = 0397660) Not detected Not detecte d ERIKA TROPICALIS (test code = 7721993) Not detected Not detected ESCHERICHIA COLI (test code = 1917220) Not detected Not detected METHICILLIN-RESISTANCE GENE (test code = 8899612) Detected Not detected A VANCOMYCIN-RESISTANCE GENE (test code = 8645028) CARBAPENEM-RESISTANCE GENE (test code = 1533818) ENTEROCOCCUS-BEAKER (test code = 4987055) Not detected Not detected PSEUDOMONAS AERUGINOSA-BEAKER (test code = 0588116) Not detected No t detected Other bacteria and resistance markers not targeted by this PCR panel cannot be e xcluded; therefore clinical correlation and follow up of serology, culture resul ts, and other molecular studies is required. The results are not intended to be used as the sole means for clinical diagnosis or patient management decisions. T his sample was tested at the [facility] Molecular Diagnostics Laboratory using the [employer] Blood Culture ID Panel. It is FDA cleared and has been verified and approved by the [facility] Molecular Diagnostics Laboratory for clinical use. Teri s laboratory is CLIA-certified and [employer] ([employer])-accred ited to perform high complexity testing.POCT-GLUCOSE [id number] 00:38:00* Test Item Value Reference Range Interpretation Comments POC-GLUCOSE METER (BEAKER) (test code = 1538) 266 mg/dL 70-110 H : TESTED AT [facility] [address] [facility] [place], [address]: Marketing Strategy Manager/Clinical Laboratory Technician ID = [id number] for MARIYA BAEZA [id number] 22:59:00* Test Item Value Reference Range Interpretation Comments MAGNESIUM (BEAKER) (test code = 627) 1.9 mg/dL 1.6-2.6 Specimen slightly hemolyzed Marketing Strategy Manager ID - BASI METABOLIC [id number] 22:59:00* Test Item Value Reference Range Interpretation Comments SODIUM (BEAKER) (test code = 381) 134 meq/L 136-145 L POTASSIUM (BEAKER) (test code = 379) 5.2 meq/L 3.5-5.1 H Specimen slightly hemolyzed CHLORIDE (BEAKER) (test code = 382) 104 meq/L 98-107 CO2 (BEAKER) (test code = 355) 25 meq/L 22-29 BLOOD UREA NITROGEN (BEAKER) (test code = 354) 28 mg/dL 7-21 H CREATININE (BEAKER) (test code = 358) 1.01 mg/dL 0.57-1.25 Specimen slightly hemolyzed GLUCOSE RANDOM (BEAKER) (test code = 652) 265 mg/dL 70-105 H CALCIUM (BEAKER) (test code = 697) 8.2 mg/dL 8.4-10.2 L EGFR (BEAKER) (test code = 1092) 77 mL/min/1.73 sq m ESTIMATED GFR IS NOT ACCURATE CREATININE CLEARANCE IN PREDICTING GLOMERULAR FILTRATION RATE. ESTIMATED GFR IS NOT APPLICABLE FOR DIALYSIS PATIENTS. Marketing Strategy Manager ID - BSBLOOD GAS, [id number] 22:33:00* Test Item Value Reference Range Interpretation Comments PH ARTERIAL (BEAKER) (test code = 383) 7.34 7.35-7.45 L PCO2 ARTERIAL (BEAKER) (test code = 384) 49 mmHg 35-45 H PO2 ARTERIAL (BEAKER) (test code = 385) 117 mmHg 80-90 H O2 SATURATION ARTERIAL (BEAKER) (test code = 386) 98.0 % 96.0 -97.0 H HCO3 ARTERIAL (BEAKER) (test code = 388) 26 mmol/L 21-29 BASE EXCESS ARTERIAL (BEAKER) (test code = 387) -0.4 mmol/L -2.0-3 .0 PATIENT TEMPERATURE (BEAKER) (test code = 1818) 37.0 C FIO2 (BEAKER) (test code = 1819) 50.0 % CALCIUM, [id number] 22:33:00* Test Item Value Reference Range Interpretation Comments CALCIUM IONIZED (BEAKER) (test code = 698) 1.09 mmol/L 1.12-1.27 L PH, BLOOD (BEAKER) (test code = 1810) 7.34 POCT-GLUCOSE [id number] 18:13:00* Test Item Value Reference Range Interpretation Comments POC-GLUCOSE METER (BEAKER) (test code = 1538) 189 mg/dL 70-110 H : TESTED AT [place] [id number] [facility] [place], [address]: Marketing Strategy Manager/Clinical Laboratory Technician ID = [id number] for SAHIL KELLY [id number] 16:27:00* Test Item Value Reference Range Interpretation Comments PHOSPHORUS (BEAKER) (test code = 604) 1.7 mg/dL 2.3-4.7 L Marketing Strategy Manager ID - [facility] METABOLIC [id number] 16:27:00* Test Item Value Reference Range Interpretation Comments SODIUM (BEAKER) (test code = 381) 135 meq/L 136-145 L POTASSIUM (BEAKER) (test code = 379) 4.5 meq/L 3.5-5.1 CHLORIDE (BEAKER) (test code = 382) 107 meq/L 98-107 CO2 (BEAKER) (test code = 355) 23 meq/L 22-29 BLOOD UREA NITROGEN (BEAKER) (test code = 354) 19 mg/dL 7-21 CREATININE (BEAKER) (test code = 358) 0.77 mg/dL 0.57-1.25 GLUCOSE RANDOM (BEAKER) (test code = 652) 196 mg/dL 70-105 H CALCIUM (BEAKER) (test code = 697) 8.1 mg/dL 8.4-10.2 L EGFR (BEAKER) (test code = 1092) 105 mL/min/1.73 sq m ESTIMATED GFR IS NOT ACCURATE CREATININE CLEARANCE IN PREDICTING GLOMERULAR FILTRATION RATE. ESTIMATED GFR IS NOT APPLICABLE FOR DIALYSIS PATIENTS. Marketing Strategy Manager ID - BSBLOOD GAS, [id number] 16:08:00* Test Item Value Reference Range Interpretation Comments PH ARTERIAL (BEAKER) (test code = 383) 7.41 7.35-7.45 PCO2 ARTERIAL (BEAKER) (test code = 384) 40 mmHg 35-45 PO2 ARTERIAL (BEAKER) (test code = 385) 138 mmHg 80-90 H O2 SATURATION ARTERIAL (BEAKER) (test code = 386) 98.8 % 96.0 -97.0 H HCO3 ARTERIAL (BEAKER) (test code = 388) 25 mmol/L 21-29 BASE EXCESS ARTERIAL (BEAKER) (test code = 387) 0.3 mmol/L -2.0-3 .0 PATIENT TEMPERATURE (BEAKER) (test code = 1818) 36.7 C FIO2 (BEAKER) (test code = 1819) 100.0 % CALCIUM, [id number] 16:02:00* Test Item Value Reference Range Interpretation Comments CALCIUM IONIZED (BEAKER) (test code = 698) 1.15 mmol/L 1.12-1.27 PH, BLOOD (BEAKER) (test code = 1810) 7.40 Heparin [id number] 15:07:00* Test Item Value Reference Range Interpretation Comments Heparin Ab (test code = 3267-2) Negative Negative Heparin Antibody Optical Density (test code = 2659) 0.288 <0 .400 4T Total Score (test code = 2661) 5 LOY (test code = LOY) Probability of HIT based on scoring system: 6-8 = High probability; 4-5 = intermediate probability; 0-3 = low probability [facility] [id number] 15:07:00* Test Item Value Reference Range Interpretation Comments HEPARIN ANTIBODY (BEAKER) (test code = 646) Negative Negative HEPARIN ANTIBODY OD (BEAKER) (test code = 2659) 0.288 <0.400 4T TOTAL SCORE (BEAKER) (test code = 2661) 5 Probability of HIT based on scoring system: 6-8 = High probability; 4-5 = inter mediate probability; 0-3 = low probabilityPOCT-GLUCOSE [id number] 13:02:00 * Test Item Value Reference Range Interpretation Comments POC-GLUCOSE METER (BEAKER) (test code = 1538) 146 mg/dL 70-110 H : TESTED AT [facility] [address] [facility] [place], [address]: Marketing Strategy Manager/Clinical Laboratory Technician ID = [id number] for SAHIL KELLY ANTI-MITOCHONDRIAL AB, REFLEX TO [id number] 12:31:00* Test Item Value Reference Range Interpretation Comments SCAN RESULT (test code = 0485193) Anti-Mitochondrial Ab, reflex to [id number] 12:31:00Scan ResultQUEST [facility] PANEL 2020-01-04 11:16:00* Test Item Value Reference Range Interpretation Comments SODIUM (BEAKER) (test code = 381) 135 meq/L 136-145 L POTASSIUM (BEAKER) (test code = 379) 4.2 meq/L 3.5-5.1 CHLORIDE (BEAKER) (test code = 382) 107 meq/L 98-107 CO2 (BEAKER) (test code = 355) 24 meq/L 22-29 BLOOD UREA NITROGEN (BEAKER) (test code = 354) 18 mg/dL 7-21 CREATININE (BEAKER) (test code = 358) 0.71 mg/dL 0.57-1.25 GLUCOSE RANDOM (BEAKER) (test code = 652) 202 mg/dL 70-105 H CALCIUM (BEAKER) (test code = 697) 8.0 mg/dL 8.4-10.2 L EGFR (BEAKER) (test code = 1092) 115 mL/min/1.73 sq m ESTIMATED GFR IS NOT ACCURATE CREATININE CLEARANCE IN PREDICTING GLOMERULAR FILTRATION RATE. ESTIMATED GFR IS NOT APPLICABLE FOR DIALYSIS PATIENTS. Marketing Strategy Manager ID - TANJADYNDARRYN BRUCE, [id number] 10:54:00* Test Item Value Reference Range Interpretation Comments PH ARTERIAL (BEAKER) (test code = 383) 7.37 7.35-7.45 PCO2 ARTERIAL (BEAKER) (test code = 384) 44 mmHg 35-45 PO2 ARTERIAL (BEAKER) (test code = 385) 195 mmHg 80-90 H O2 SATURATION ARTERIAL (BEAKER) (test code = 386) 99.3 % 96.0 -97.0 H HCO3 ARTERIAL (BEAKER) (test code = 388) 25 mmol/L 21-29 BASE EXCESS ARTERIAL (BEAKER) (test code = 387) -0.3 mmol/L -2.0-3 .0 PATIENT TEMPERATURE (BEAKER) (test code = 1818) 36.2 C FIO2 (BEAKER) (test code = 1819) 80.0 % RAD, ABDOMEN/KUB, 1 VIEW [id number] 10:05:00Reason for exam:->NG placement FINAL REPORT CLINICAL HISTORY: NG placement TECHNIQUE: Davis pine abdomen COMPARISON: 01/01/2020 IMPRESSION: A nasogastric tube remains in the upper stomach. The bowel gas pattern is nonspecific. Free air and air-fluid lev els are not definitively seen, but also cannot be excluded on the supine view. S igned: Damian Huang Verified Date/Time: 01/04/2020 10:05:09 Reading L ocation: [facility] Radiology Reading Room , CHEST, 1 VIEW, NON [id number] 09:20:00Reason for exam:->HypoxiaShould this be performed at the bedside?->Yes FINAL REPORT CLINICAL HISTORY: Hypoxia TECHNIQUE: 1 view of the chest. COMPARISON: 01/03/2020 IMPRESSION: The supporting lines and tubes a re similar appearing. Diffuse bilateral airspace opacities are similar appearing . Subpulmonic pleural effusions cannot be excluded. The cardiomediastinal silhou ette is magnified by technique. Signed: Damian Huang Verified Date/Emigdio e: 01/04/2020 09:20:51 Reading Location: [facility] Radiology Reading Room D GAS, [id number] 08:48:00* Test Item Value Reference Range Interpretation Comments PH ARTERIAL (BEAKER) (test code = 383) 7.40 7.35-7.45 PCO2 ARTERIAL (BEAKER) (test code = 384) 41 mmHg 35-45 PO2 ARTERIAL (BEAKER) (test code = 385) 203 mmHg 80-90 H O2 SATURATION ARTERIAL (BEAKER) (test code = 386) 99.4 % 96.0 -97.0 H HCO3 ARTERIAL (BEAKER) (test code = 388) 25 mmol/L 21-29 BASE EXCESS ARTERIAL (BEAKER) (test code = 387) -0.2 mmol/L -2.0-3 .0 PATIENT TEMPERATURE (BEAKER) (test code = 1818) 36.1 C FIO2 (BEAKER) (test code = 1819) 100.0 % [id number] 06:27:00* Test Item Value Reference Range Interpretation Comments PROCALCITONIN (BEAKER) (test code = 3036) 0.75 ng/mL <0.05 H SEPSIS RISK (ng/mL)Low: 0.05-0.50Intermediate: 0.51-2.00High: > =[id number] 06:18:00* Test Item Value Reference Range Interpretation Comments FERRITIN (BEAKER) (test code = 361) 2491.92 ng/mL 5.00-275.00 H Marketing Strategy Manager ID - EDASICBC W/PLT COUNT & AUTO [id number] 05:59:00* Test Item Value Reference Range Interpretation Comments WHITE BLOOD CELL COUNT (BEAKER) (test code = 775) 2.9 K/ L 3.5- 10.5 L RED BLOOD CELL COUNT (BEAKER) (test code = 761) 3.04 M/ L 4.63-6 .08 L HEMOGLOBIN (BEAKER) (test code = 410) 8.9 GM/DL 13.7-17.5 L HEMATOCRIT (BEAKER) (test code = 411) 28.4 % 40.1-51.0 L MEAN CORPUSCULAR VOLUME (BEAKER) (test code = 753) 93.4 fL 79. 0-92.2 H MEAN CORPUSCULAR HEMOGLOBIN (BEAKER) (test code = 751) 29.3 pg 25.7-32.2 MEAN CORPUSCULAR HEMOGLOBIN CONC (BEAKER) (test code = 752) 31.3 GM/DL 32.3-36.5 L RED CELL DISTRIBUTION WIDTH (BEAKER) (test code = 412) 19.3 % 11.6-14.4 H PLATELET COUNT (BEAKER) (test code = 756) 58 K/CU MM 150-450 L MEAN PLATELET VOLUME (BEAKER) (test code = 754) 12.1 fL 9.4-12 .4 NUCLEATED RED BLOOD CELLS (BEAKER) (test code = 413) 1 /100 WBC 0 -0 H NEUTROPHILS RELATIVE PERCENT (BEAKER) (test code = 429) 70 % LYMPHOCYTES RELATIVE PERCENT (BEAKER) (test code = 430) 13 % MONOCYTES RELATIVE PERCENT (BEAKER) (test code = 431) 10 % EOSINOPHILS RELATIVE PERCENT (BEAKER) (test code = 432) 6 % BASOPHILS RELATIVE PERCENT (BEAKER) (test code = 437) 0 % NEUTROPHILS ABSOLUTE COUNT (BEAKER) (test code = 670) 1.99 K/ L 1.78-5.38 LYMPHOCYTES ABSOLUTE COUNT (BEAKER) (test code = 414) 0.36 K/ L 1.32-3.57 L MONOCYTES ABSOLUTE COUNT (BEAKER) (test code = 415) 0.28 K/ L 0. 30-0.82 L EOSINOPHILS ABSOLUTE COUNT (BEAKER) (test code = 416) 0.16 K/ L 0.04-0.54 BASOPHILS ABSOLUTE COUNT (BEAKER) (test code = 417) 0.01 K/ L 0. 01-0.08 IMMATURE GRANULOCYTES-RELATIVE PERCENT (BEAKER) (test code = 2801) 2 % 0-1 H [id number] 05:34:00* Test Item Value Reference Range Interpretation Comments PHOSPHORUS (BEAKER) (test code = 604) 1.8 mg/dL 2.3-4.7 L Marketing Strategy Manager ID - [id number] 05:34:00* Test Item Value Reference Range Interpretation Comments MAGNESIUM (BEAKER) (test code = 627) 1.9 mg/dL 1.6-2.6 Marketing Strategy Manager ID - EDASIHEPATIC FUNCTION [id number] 05:34:00* Test Item Value Reference Range Interpretation Comments TOTAL PROTEIN (BEAKER) (test code = 770) 6.0 gm/dL 6.0-8.3 ALBUMIN (BEAKER) (test code = 1145) 2.6 g/dL 3.5-5.0 L BILIRUBIN TOTAL (BEAKER) (test code = 377) 0.8 mg/dL 0.2-1.2 BILIRUBIN DIRECT (BEAKER) (test code = 706) 0.6 mg/dL 0.1-0.5 H ALKALINE PHOSPHATASE (BEAKER) (test code = 346) 550 U/L 40-150 H AST (SGOT) (BEAKER) (test code = 353) 36 U/L 5-34 H ALT (SGPT) (BEAKER) (test code = 347) 91 U/L 6-55 H Marketing Strategy Manager ID - EDASICOMPREHENSIVE METABOLIC [id number] 05:34:00* Test Item Value Reference Range Interpretation Comments TOTAL PROTEIN (BEAKER) (test code = 770) 6.0 gm/dL 6.0-8.3 ALBUMIN (BEAKER) (test code = 1145) 2.6 g/dL 3.5-5.0 L ALKALINE PHOSPHATASE (BEAKER) (test code = 346) 550 U/L 40-150 H BILIRUBIN TOTAL (BEAKER) (test code = 377) 0.8 mg/dL 0.2-1.2 SODIUM (BEAKER) (test code = 381) 136 meq/L 136-145 POTASSIUM (BEAKER) (test code = 379) 3.9 meq/L 3.5-5.1 CHLORIDE (BEAKER) (test code = 382) 106 meq/L 98-107 CO2 (BEAKER) (test code = 355) 24 meq/L 22-29 BLOOD UREA NITROGEN (BEAKER) (test code = 354) 17 mg/dL 7-21 CREATININE (BEAKER) (test code = 358) 0.70 mg/dL 0.57-1.25 GLUCOSE RANDOM (BEAKER) (test code = 652) 214 mg/dL 70-105 H CALCIUM (BEAKER) (test code = 697) 8.3 mg/dL 8.4-10.2 L AST (SGOT) (BEAKER) (test code = 353) 36 U/L 5-34 H ALT (SGPT) (BEAKER) (test code = 347) 91 U/L 6-55 H EGFR (BEAKER) (test code = 1092) 117 mL/min/1.73 sq m ESTIMATED GFR IS NOT ACCURATE CREATININE CLEARANCE IN PREDICTING GLOMERULAR FILTRATION RATE. ESTIMATED GFR IS NOT APPLICABLE FOR DIALYSIS PATIENTS. Marketing Strategy Manager ID - EDASILACTATE DEHYDROGENASE (LDH)2020-01-04 05:34:00* Test Item Value Reference Range Interpretation Comments LACTATE DEHYDROGENASE (BEAKER) (test code = 635) 384 U/L 125-2 20 H Marketing Strategy Manager ID - EDASIC-REACTIVE [id number] 05:34:00* Test Item Value Reference Range Interpretation Comments C-REACTIVE PROTEIN (BEAKER) (test code = 676) 12.21 mg/dL 0.00-0.5 0 H Marketing Strategy Manager ID - [id number] 05:23:00* Test Item Value Reference Range Interpretation Comments PARTIAL THROMBOPLASTIN TIME (BEAKER) (test code = 760) 70.4 seconds 22.5-36.0 H LACTIC ACID, [id number] 05:20:00* Test Item Value Reference Range Interpretation Comments LACTATE BLOOD ARTERIAL (2) (BEAKER) (test code = 2874) 0.6 mmol/L 0.5-2.2 Marketing Strategy Manager ID - LUISA LCALCIUM, [id number] 05:05:00* Test Item Value Reference Range Interpretation Comments CALCIUM IONIZED (BEAKER) (test code = 698) 1.16 mmol/L 1.12-1.27 PH, BLOOD (BEAKER) (test code = 1810) 7.41 BLOOD GAS, [id number] 05:04:00* Test Item Value Reference Range Interpretation Comments PH ARTERIAL (BEAKER) (test code = 383) 7.40 7.35-7.45 PCO2 ARTERIAL (BEAKER) (test code = 384) 41 mmHg 35-45 PO2 ARTERIAL (BEAKER) (test code = 385) 133 mmHg 80-90 H O2 SATURATION ARTERIAL (BEAKER) (test code = 386) 98.6 % 96.0 -97.0 H HCO3 ARTERIAL (BEAKER) (test code = 388) 25 mmol/L 21-29 BASE EXCESS ARTERIAL (BEAKER) (test code = 387) 0.4 mmol/L -2.0-3 .0 PATIENT TEMPERATURE (BEAKER) (test code = 1818) 37.5 C FIO2 (BEAKER) (test code = 1819) 70.0 % [id number] 22:21:00* Test Item Value Reference Range Interpretation Comments PARTIAL THROMBOPLASTIN TIME (BEAKER) (test code = 760) 67.9 seconds 22.5-36.0 H 4 hours after the start of continuous infusion and 4 hours after any rate change BASIC METABOLIC [id number] 22:16:00* Test Item Value Reference Range Interpretation Comments SODIUM (BEAKER) (test code = 381) 135 meq/L 136-145 L POTASSIUM (BEAKER) (test code = 379) 3.8 meq/L 3.5-5.1 CHLORIDE (BEAKER) (test code = 382) 107 meq/L 98-107 CO2 (BEAKER) (test code = 355) 20 meq/L 22-29 L BLOOD UREA NITROGEN (BEAKER) (test code = 354) 17 mg/dL 7-21 CREATININE (BEAKER) (test code = 358) 0.76 mg/dL 0.57-1.25 GLUCOSE RANDOM (BEAKER) (test code = 652) 191 mg/dL 70-105 H CALCIUM (BEAKER) (test code = 697) 7.8 mg/dL 8.4-10.2 L EGFR (BEAKER) (test code = 1092) 106 mL/min/1.73 sq m ESTIMATED GFR IS NOT ACCURATE CREATININE CLEARANCE IN PREDICTING GLOMERULAR FILTRATION RATE. ESTIMATED GFR IS NOT APPLICABLE FOR DIALYSIS PATIENTS. Marketing Strategy Manager ID - [id number] 22:12:00* Test Item Value Reference Range Interpretation Comments MAGNESIUM (BEAKER) (test code = 627) 1.8 mg/dL 1.6-2.6 Marketing Strategy Manager ID - DBBLOOD GAS, [id number] 22:00:00* Test Item Value Reference Range Interpretation Comments PH ARTERIAL (BEAKER) (test code = 383) 7.33 7.35-7.45 L PCO2 ARTERIAL (BEAKER) (test code = 384) 50 mmHg 35-45 H PO2 ARTERIAL (BEAKER) (test code = 385) 141 mmHg 80-90 H O2 SATURATION ARTERIAL (BEAKER) (test code = 386) 98.5 % 96.0 -97.0 H HCO3 ARTERIAL (BEAKER) (test code = 388) 25 mmol/L 21-29 BASE EXCESS ARTERIAL (BEAKER) (test code = 387) -1.0 mmol/L -2.0-3 .0 PATIENT TEMPERATURE (BEAKER) (test code = 1818) 37.5 C FIO2 (BEAKER) (test code = 1819) 70.0 % CALCIUM, [id number] 22:00:00* Test Item Value Reference Range Interpretation Comments CALCIUM IONIZED (BEAKER) (test code = 698) 1.16 mmol/L 1.12-1.27 PH, BLOOD (BEAKER) (test code = 1810) 7.33 POCT-GLUCOSE [id number] 18:15:00* Test Item Value Reference Range Interpretation Comments POC-GLUCOSE METER (BEAKER) (test code = 1538) 163 mg/dL 70-110 H : TESTED AT [address], [address]: Marketing Strategy Manager/Clinical Laboratory Technician ID = [id number] for SAHIL KELLY BASIC METABOLIC [id number] 16:42:00* Test Item Value Reference Range Interpretation Comments SODIUM (BEAKER) (test code = 381) 134 meq/L 136-145 L POTASSIUM (BEAKER) (test code = 379) 4.0 meq/L 3.5-5.1 Specimen slightly hemolyzed CHLORIDE (BEAKER) (test code = 382) 108 meq/L 98-107 H CO2 (BEAKER) (test code = 355) 23 meq/L 22-29 BLOOD UREA NITROGEN (BEAKER) (test code = 354) 16 mg/dL 7-21 CREATININE (BEAKER) (test code = 358) 0.79 mg/dL 0.57-1.25 Specimen slightly hemolyzed GLUCOSE RANDOM (BEAKER) (test code = 652) 216 mg/dL 70-105 H CALCIUM (BEAKER) (test code = 697) 7.6 mg/dL 8.4-10.2 L EGFR (BEAKER) (test code = 1092) 102 mL/min/1.73 sq m ESTIMATED GFR IS NOT ACCURATE CREATININE CLEARANCE IN PREDICTING GLOMERULAR FILTRATION RATE. ESTIMATED GFR IS NOT APPLICABLE FOR DIALYSIS PATIENTS. Marketing Strategy Manager ID - [id number] 16:41:00* Test Item Value Reference Range Interpretation Comments PHOSPHORUS (BEAKER) (test code = 604) 2.2 mg/dL 2.3-4.7 L Specimen slightly hemolyzed Marketing Strategy Manager ID - BSLACTIC ACID, [id number] 16:37:00* Test Item Value Reference Range Interpretation Comments LACTATE BLOOD ARTERIAL (2) (BEAKER) (test code = 2874) 0.7 mmol/L 0.5-2.2 Marketing Strategy Manager ID - [id number] 16:37:00* Test Item Value Reference Range Interpretation Comments PARTIAL THROMBOPLASTIN TIME (BEAKER) (test code = 760) 40.8 seconds 22.5-36.0 H CALCIUM, [id number] 16:29:00* Test Item Value Reference Range Interpretation Comments CALCIUM IONIZED (BEAKER) (test code = 698) 1.15 mmol/L 1.12-1.27 PH, BLOOD (BEAKER) (test code = 1810) 7.37 BLOOD GAS, [id number] 16:29:00* Test Item Value Reference Range Interpretation Comments PH ARTERIAL (BEAKER) (test code = 383) 7.35 7.35-7.45 PCO2 ARTERIAL (BEAKER) (test code = 384) 42 mmHg 35-45 PO2 ARTERIAL (BEAKER) (test code = 385) 150 mmHg 80-90 H O2 SATURATION ARTERIAL (BEAKER) (test code = 386) 98.7 % 96.0 -97.0 H HCO3 ARTERIAL (BEAKER) (test code = 388) 22 mmol/L 21-29 BASE EXCESS ARTERIAL (BEAKER) (test code = 387) -2.6 mmol/L -2.0-3 .0 L PATIENT TEMPERATURE (BEAKER) (test code = 1818) 38.4 C FIO2 (BEAKER) (test code = 1819) 70.0 % POCT-GLUCOSE [id number] 13:35:00* Test Item Value Reference Range Interpretation Comments POC-GLUCOSE METER (BEAKER) (test code = 1538) 215 mg/dL 70-110 H : TESTED AT [facility] [address] [facility] [place], [address]: Marketing Strategy Manager/Clinical Laboratory Technician ID = [id number] for SAHIL KELLY Anti-Nuclear Antibody (RAMU)2020-01-03 12:22:00* Test Item Value Reference Range Interpretation Comments RAMU (test code = 13491-5) Negative Negative LOY (test code = LOY) Test performed by IFA method .Test performed by IFA method.Test performed by IFA method. Lab Interpretation (test code = 11290-6) [facility]2020[facility] 12:22:00* Test Item Value Reference Range Interpretation Comments ANTI-NUCLEAR ANTIBODY (RAMU) (BEAKER) (test code = 418) Negative Negative Test performed by IFA method.Test performed by IFA method.Test performed by IFA method.BLOOD GAS, [id number] 11:57:00* Test Item Value Reference Range Interpretation Comments PH ARTERIAL (BEAKER) (test code = 383) 7.38 7.35-7.45 PCO2 ARTERIAL (BEAKER) (test code = 384) 36 mmHg 35-45 PO2 ARTERIAL (BEAKER) (test code = 385) 157 mmHg 80-90 H O2 SATURATION ARTERIAL (BEAKER) (test code = 386) 99.0 % 96.0 -97.0 H HCO3 ARTERIAL (BEAKER) (test code = 388) 21 mmol/L 21-29 BASE EXCESS ARTERIAL (BEAKER) (test code = 387) -4.1 mmol/L -2.0-3 .0 L PATIENT TEMPERATURE (BEAKER) (test code = 1818) 37.1 C FIO2 (BEAKER) (test code = 1819) 70.0 % CALCIUM, [id number] 11:57:00* Test Item Value Reference Range Interpretation Comments CALCIUM IONIZED (BEAKER) (test code = 698) 1.07 mmol/L 1.12-1.27 L PH, BLOOD (BEAKER) (test code = 1810) 7.38 Vancomycin level, [id number] 11:40:00* Test Item Value Reference Range Interpretation Comments Vancomycin Tr (test code = 4092-3) 6.9 ug/mL 10-20 L LOY (test code = LOY) Marketing Strategy Manager ID - [id number] Lab Interpretation (test code = 18895-9) [facility] [id number] 11:40:00* Test Item Value Reference Range Interpretation Comments VANCOMYCIN TROUGH (BEAKER) (test code = 522) 6.9 ug/mL 10.0-20.0 L Marketing Strategy Manager ID - [id number] (HEMOGRAM ONLY)2020-01-03 10:14:00* Test Item Value Reference Range Interpretation Comments WHITE BLOOD CELL COUNT (BEAKER) (test code = 775) 3.4 K/ L 3.5- 10.5 L RED BLOOD CELL COUNT (BEAKER) (test code = 761) 2.64 M/ L 4.63-6 .08 L HEMOGLOBIN (BEAKER) (test code = 410) 7.8 GM/DL 13.7-17.5 L HEMATOCRIT (BEAKER) (test code = 411) 25.1 % 40.1-51.0 L MEAN CORPUSCULAR VOLUME (BEAKER) (test code = 753) 95.1 fL 79. 0-92.2 H MEAN CORPUSCULAR HEMOGLOBIN (BEAKER) (test code = 751) 29.5 pg 25.7-32.2 MEAN CORPUSCULAR HEMOGLOBIN CONC (BEAKER) (test code = 752) 31.1 GM/DL 32.3-36.5 L RED CELL DISTRIBUTION WIDTH (BEAKER) (test code = 412) 19.9 % 11.6-14.4 H PLATELET COUNT (BEAKER) (test code = 756) 61 K/CU MM 150-450 L MEAN PLATELET VOLUME (BEAKER) (test code = 754) 12.7 fL 9.4-12 .4 H NUCLEATED RED BLOOD CELLS (BEAKER) (test code = 413) 1 /100 WBC 0 -0 H BASIC METABOLIC [id number] 10:12:00* Test Item Value Reference Range Interpretation Comments SODIUM (BEAKER) (test code = 381) 131 meq/L 136-145 L POTASSIUM (BEAKER) (test code = 379) 4.0 meq/L 3.5-5.1 CHLORIDE (BEAKER) (test code = 382) 105 meq/L 98-107 CO2 (BEAKER) (test code = 355) 20 meq/L 22-29 L BLOOD UREA NITROGEN (BEAKER) (test code = 354) 15 mg/dL 7-21 CREATININE (BEAKER) (test code = 358) 0.75 mg/dL 0.57-1.25 GLUCOSE RANDOM (BEAKER) (test code = 652) 246 mg/dL 70-105 H CALCIUM (BEAKER) (test code = 697) 7.6 mg/dL 8.4-10.2 L EGFR (BEAKER) (test code = 1092) 108 mL/min/1.73 sq m ESTIMATED GFR IS NOT ACCURATE CREATININE CLEARANCE IN PREDICTING GLOMERULAR FILTRATION RATE. ESTIMATED GFR IS NOT APPLICABLE FOR DIALYSIS PATIENTS. Marketing Strategy Manager ID - [id number] 10:05:00* Test Item Value Reference Range Interpretation Comments PARTIAL THROMBOPLASTIN TIME (BEAKER) (test code = 760) 36.9 seconds 22.5-36.0 H Draw baseline aPTT prior to infusionMitochondrial Ab [id number] 10:01:00* Test Item Value Reference Range Interpretation Comments Anti-Mitochond Abs (test code = 3166439) NEGATIVE NEGATIVE This test was developed and its analytical performance characteristics havebeen determined by [employer] [facility].It has not been cleared or approved by FDA. This assay has been validatedpursuant to the CLIA regulations and is used for clinical purposes. LOY (test code = LOY) Performing Lab EZ Qu est Diagnostics [facility] [address] [place] [address] Taqueria Latham MD, PhD, DAVID [facility] CenterMitochondrial Ab [id number] 10:01:00* Test Item Value Reference Range Interpretation Comments Mitochondrial Ab Titer (test code = 9547542) TNP <1:20 Test Not Performed. Screening test Negative or Not Detected. Titer notperformed. LOY (test code = LOY) Performing Lab EZ Qu est Diagnostics [facility] [address] [place] [address] Taqueria Latham MD, PhD, DAVID [facility] CenterMAGNESIUM2020-07-27 08:46:00* Test Item Value Reference Range Interpretation Comments MAGNESIUM (BEAKER) (test code = 627) 2.0 mg/dL 1.6-2.6 Marketing Strategy Manager ID - NTPCALCIUM, [id number] 08:30:00* Test Item Value Reference Range Interpretation Comments CALCIUM IONIZED (BEAKER) (test code = 698) 1.17 mmol/L 1.12-1.27 PH, BLOOD ([facility]) (test code = 1810) 7.32 [id number] 06:38:00* Test Item Value Reference Range Interpretation Comments PARTIAL THROMBOPLASTIN TIME (BEAKER) (test code = 760) 62.2 seconds 22.5-36.0 H POCT-GLUCOSE [id number] 05:43:00* Test Item Value Reference Range Interpretation Comments POC-GLUCOSE METER (BEAKER) (test code = 1538) 198 mg/dL 70-110 H : TESTED AT [facility] [address] [facility], [address]: Marketing Strategy Manager/Clinical Laboratory Technician ID = [id number] for DEVI, DENA THROMBOELASTOGRAPH (TEG)2020-01-03 05:02:00* Test Item Value Reference Range Interpretation Comments TEG ACTIVATED CLOTTING TIME (BEAKER) (test code = 1407) 8.9 minutes 4.0-7.0 H TEG FIBRINOGEN ACTIVITY (BEAKER) (test code = 1408) 59.0 degrees 61 .0-73.0 L TEG PLT. AGGREGATION (BEAKER) (test code = 1409) 71.1 MM 55.0- 65.0 H TGH ACTIVATED CLOTTING TIME (BEAKER) (test code = 1411) 7.1 minutes 4.0-7.0 H TGH FIBRINOGEN ACTIVITY (BEAKER) (test code = 1412) 61.6 degrees 61 .0-73.0 TGH PLT. AGGREGATION (BEAKER) (test code = 1413) 67.3 MM 55.0- 65.0 H BLOOD GAS, [id number] 04:13:00* Test Item Value Reference Range Interpretation Comments PH ARTERIAL (BEAKER) (test code = 383) 7.36 7.35-7.45 PCO2 ARTERIAL (BEAKER) (test code = 384) 42 mmHg 35-45 PO2 ARTERIAL (BEAKER) (test code = 385) 80 mmHg 80-90 O2 SATURATION ARTERIAL (BEAKER) (test code = 386) 95.4 % 96.0 -97.0 L HCO3 ARTERIAL (BEAKER) (test code = 388) 23 mmol/L 21-29 BASE EXCESS ARTERIAL (BEAKER) (test code = 387) -2.0 mmol/L -2.0-3 .0 PATIENT TEMPERATURE (BEAKER) (test code = 1818) 37.0 C FIO2 (BEAKER) (test code = 1819) 80.0 % CBC W/PLT COUNT & AUTO [id number] 04:04:00* Test Item Value Reference Range Interpretation Comments WHITE BLOOD CELL COUNT (BEAKER) (test code = 775) 3.1 K/ L 3.5- 10.5 L RED BLOOD CELL COUNT (BEAKER) (test code = 761) 2.68 M/ L 4.63-6 .08 L HEMOGLOBIN (BEAKER) (test code = 410) 7.9 GM/DL 13.7-17.5 L HEMATOCRIT (BEAKER) (test code = 411) 25.0 % 40.1-51.0 L MEAN CORPUSCULAR VOLUME (BEAKER) (test code = 753) 93.3 fL 79. 0-92.2 H MEAN CORPUSCULAR HEMOGLOBIN (BEAKER) (test code = 751) 29.5 pg 25.7-32.2 MEAN CORPUSCULAR HEMOGLOBIN CONC (BEAKER) (test code = 752) 31.6 GM/DL 32.3-36.5 L RED CELL DISTRIBUTION WIDTH (BEAKER) (test code = 412) 19.6 % 11.6-14.4 H PLATELET COUNT (BEAKER) (test code = 756) 50 K/CU MM 150-450 L MEAN PLATELET VOLUME (BEAKER) (test code = 754) 12.1 fL 9.4-12 .4 NUCLEATED RED BLOOD CELLS (BEAKER) (test code = 413) 1 /100 WBC 0 -0 H NEUTROPHILS RELATIVE PERCENT (BEAKER) (test code = 429) 78 % LYMPHOCYTES RELATIVE PERCENT (BEAKER) (test code = 430) 10 % MONOCYTES RELATIVE PERCENT (BEAKER) (test code = 431) 9 % EOSINOPHILS RELATIVE PERCENT (BEAKER) (test code = 432) 1 % BASOPHILS RELATIVE PERCENT (BEAKER) (test code = 437) 0 % NEUTROPHILS ABSOLUTE COUNT (BEAKER) (test code = 670) 2.40 K/ L 1.78-5.38 LYMPHOCYTES ABSOLUTE COUNT (BEAKER) (test code = 414) 0.30 K/ L 1.32-3.57 L MONOCYTES ABSOLUTE COUNT (BEAKER) (test code = 415) 0.26 K/ L 0. 30-0.82 L EOSINOPHILS ABSOLUTE COUNT (BEAKER) (test code = 416) 0.04 K/ L 0.04-0.54 BASOPHILS ABSOLUTE COUNT (BEAKER) (test code = 417) 0.00 K/ L 0. 01-0.08 L IMMATURE GRANULOCYTES-RELATIVE PERCENT (BEAKER) (test code = 2801) 2 % 0-1 H [id number] 03:57:00* Test Item Value Reference Range Interpretation Comments PHOSPHORUS (BEAKER) (test code = 604) 2.7 mg/dL 2.3-4.7 Marketing Strategy Manager ID - IVELISSE [id number] 03:57:00* Test Item Value Reference Range Interpretation Comments MAGNESIUM (BEAKER) (test code = 627) 2.1 mg/dL 1.6-2.6 Marketing Strategy Manager ID - IVELISSE WBASIC METABOLIC [id number] 03:57:00* Test Item Value Reference Range Interpretation Comments SODIUM (BEAKER) (test code = 381) 135 meq/L 136-145 L POTASSIUM (BEAKER) (test code = 379) 4.2 meq/L 3.5-5.1 CHLORIDE (BEAKER) (test code = 382) 105 meq/L 98-107 CO2 (BEAKER) (test code = 355) 24 meq/L 22-29 BLOOD UREA NITROGEN (BEAKER) (test code = 354) 16 mg/dL 7-21 CREATININE (BEAKER) (test code = 358) 0.73 mg/dL 0.57-1.25 GLUCOSE RANDOM (BEAKER) (test code = 652) 234 mg/dL 70-105 H CALCIUM (BEAKER) (test code = 697) 8.0 mg/dL 8.4-10.2 L EGFR (BEAKER) (test code = 1092) 112 mL/min/1.73 sq m ESTIMATED GFR IS NOT ACCURATE CREATININE CLEARANCE IN PREDICTING GLOMERULAR FILTRATION RATE. ESTIMATED GFR IS NOT APPLICABLE FOR DIALYSIS PATIENTS. HEPATIC FUNCTION [id number] 03:57:00* Test Item Value Reference Range Interpretation Comments TOTAL PROTEIN (BEAKER) (test code = 770) 5.6 gm/dL 6.0-8.3 L ALBUMIN (BEAKER) (test code = 1145) 2.5 g/dL 3.5-5.0 L BILIRUBIN TOTAL (BEAKER) (test code = 377) 0.8 mg/dL 0.2-1.2 BILIRUBIN DIRECT (BEAKER) (test code = 706) 0.7 mg/dL 0.1-0.5 H ALKALINE PHOSPHATASE (BEAKER) (test code = 346) 532 U/L 40-150 H AST (SGOT) (BEAKER) (test code = 353) 34 U/L 5-34 ALT (SGPT) (BEAKER) (test code = 347) 109 U/L 6-55 H Marketing Strategy Manager ID Monisha OVIEDO WCOMPREHENSIVE METABOLIC [id number] 03:57:00* Test Item Value Reference Range Interpretation Comments TOTAL PROTEIN (BEAKER) (test code = 770) 5.6 gm/dL 6.0-8.3 L ALBUMIN (BEAKER) (test code = 1145) 2.5 g/dL 3.5-5.0 L ALKALINE PHOSPHATASE (BEAKER) (test code = 346) 532 U/L 40-150 H BILIRUBIN TOTAL (BEAKER) (test code = 377) 0.8 mg/dL 0.2-1.2 SODIUM (BEAKER) (test code = 381) 135 meq/L 136-145 L POTASSIUM (BEAKER) (test code = 379) 4.2 meq/L 3.5-5.1 CHLORIDE (BEAKER) (test code = 382) 105 meq/L 98-107 CO2 (BEAKER) (test code = 355) 24 meq/L 22-29 BLOOD UREA NITROGEN (BEAKER) (test code = 354) 16 mg/dL 7-21 CREATININE (BEAKER) (test code = 358) 0.73 mg/dL 0.57-1.25 GLUCOSE RANDOM (BEAKER) (test code = 652) 234 mg/dL 70-105 H CALCIUM (BEAKER) (test code = 697) 8.0 mg/dL 8.4-10.2 L AST (SGOT) (BEAKER) (test code = 353) 34 U/L 5-34 ALT (SGPT) (BEAKER) (test code = 347) 109 U/L 6-55 H EGFR (BEAKER) (test code = 1092) 112 mL/min/1.73 sq m ESTIMATED GFR IS NOT ACCURATE CREATININE CLEARANCE IN PREDICTING GLOMERULAR FILTRATION RATE. ESTIMATED GFR IS NOT APPLICABLE FOR DIALYSIS PATIENTS. Marketing Strategy Manager ID Monisha OVIEDO WLACTIC ACID, [id number] 03:52:00* Test Item Value Reference Range Interpretation Comments LACTATE BLOOD ARTERIAL (2) (BEAKER) (test code = 2874) 0.6 mmol/L 0.5-2.2 Marketing Strategy Manager ID - DBRAD, CHEST, 1 VIEW, NON [id number] 02:45:00Reason for exam:- >increasing O2 requirementShould this be performed at the bedside?->YesFINAL REPORT RAD, CHEST, 1 VIEW, NON DEPT INDICATION: inc reasing O2 requirement COMPARISON: Prior day's exam FINDINGS: Portable frontal v iew of the chest. IMPRESSION: Support Lines: Stable. Lungs and pleura: Again seen are patchy reticular nodular airspace opacities with increasing consolidati on in the bilateral lower lungs. No large pleural effusion. No pneumothorax.Hear t and mediastinum: Stable contours. Additional findings: None. Signed: Lorenzo Molina Verified Date/Time: 01/03/2020 02:45:51 Electronically si gned by: LORENZO MOLINA MD on 01/03/2020 02:45 AM [id number] 23:53:00* Test Item Value Reference Range Interpretation Comments PARTIAL THROMBOPLASTIN TIME (BEAKER) (test code = 760) 60.4 seconds 22.5-36.0 H POCT-GLUCOSE [id number] 23:43:00* Test Item Value Reference Range Interpretation Comments POC-GLUCOSE METER (BEAKER) (test code = 1538) 202 mg/dL 70-110 H : TESTED AT [address], [address]: Marketing Strategy Manager/Clinical Laboratory Technician ID = [id number] for [place] BASIC METABOLIC [id number] 21:58:00* Test Item Value Reference Range Interpretation Comments SODIUM (BEAKER) (test code = 381) 134 meq/L 136-145 L POTASSIUM (BEAKER) (test code = 379) 3.8 meq/L 3.5-5.1 Specimen slightly hemolyzed CHLORIDE (BEAKER) (test code = 382) 105 meq/L 98-107 CO2 (BEAKER) (test code = 355) 21 meq/L 22-29 L BLOOD UREA NITROGEN (BEAKER) (test code = 354) 18 mg/dL 7-21 CREATININE (BEAKER) (test code = 358) 0.71 mg/dL 0.57-1.25 Specimen slightly hemolyzed GLUCOSE RANDOM (BEAKER) (test code = 652) 261 mg/dL 70-105 H CALCIUM (BEAKER) (test code = 697) 7.7 mg/dL 8.4-10.2 L EGFR (BEAKER) (test code = 1092) 115 mL/min/1.73 sq m ESTIMATED GFR IS NOT ACCURATE CREATININE CLEARANCE IN PREDICTING GLOMERULAR FILTRATION RATE. ESTIMATED GFR IS NOT APPLICABLE FOR DIALYSIS PATIENTS. Marketing Strategy Manager ID - [id number] 21:56:00* Test Item Value Reference Range Interpretation Comments MAGNESIUM (BEAKER) (test code = 627) 1.8 mg/dL 1.6-2.6 Specimen slightly hemolyzed Marketing Strategy Manager ID - [id number] 21:56:00* Test Item Value Reference Range Interpretation Comments PHOSPHORUS (BEAKER) (test code = 604) 2.8 mg/dL 2.3-4.7 Specimen slightly hemolyzed Marketing Strategy Manager ID - DBBLOOD GAS, [id number] 21:38:00* Test Item Value Reference Range Interpretation Comments PH ARTERIAL (BEAKER) (test code = 383) 7.39 7.35-7.45 PCO2 ARTERIAL (BEAKER) (test code = 384) 37 mmHg 35-45 PO2 ARTERIAL (BEAKER) (test code = 385) 59 mmHg 80-90 L O2 SATURATION ARTERIAL (BEAKER) (test code = 386) 91.7 % 96.0 -97.0 L HCO3 ARTERIAL (BEAKER) (test code = 388) 23 mmol/L 21-29 BASE EXCESS ARTERIAL (BEAKER) (test code = 387) -2.5 mmol/L -2.0-3 .0 L PATIENT TEMPERATURE (BEAKER) (test code = 1818) 36.0 C FIO2 (BEAKER) (test code = 1819) 60.0 % CALCIUM, [id number] 21:37:00* Test Item Value Reference Range Interpretation Comments CALCIUM IONIZED (BEAKER) (test code = 698) 1.11 mmol/L 1.12-1.27 L PH, BLOOD (BEAKER) (test code = 1810) 7.39 Actin (Smooth Muscle) Antibody, [id number] 21:36:00* Test Item Value Reference Range Interpretation Comments Anti-Smooth Muscle Ab (test code = 8822874) <20 See Note: U Reference Range:<20 NEGATIVE> OR = 20 POSITIVE Antibodies recognizing actin are the main componentof smooth muscle antibodies associated withautoimmune liver disease. Actin antibodies arefound in approximately 75% of patients withautoimmune hepatitis (AIH) type 1, [id number]% of patients with autoimmune cholangitis,approximately 30% of patients with primary biliarycirrhosis, and approximately 2% of healthy people.High values are closely correlated with AIH type 1. LOY (test code = LOY) Performing Lab EZ Qu est Diagnostics [facility] [address] [place] [address] Taqueria Latham MD, PhD, DAVID [facility]2020-07-26 19:07:00* Test Item Value Reference Range Interpretation Comments MAGNESIUM (BEAKER) (test code = 627) 1.4 mg/dL 1.6-2.6 L Marketing Strategy Manager ID - [id number] 19:05:00* Test Item Value Reference Range Interpretation Comments PHOSPHORUS (BEAKER) (test code = 604) 3.7 mg/dL 2.3-4.7 Marketing Strategy Manager ID - DBBLOOD GAS, [id number] 18:55:00* Test Item Value Reference Range Interpretation Comments PH ARTERIAL (BEAKER) (test code = 383) 7.42 7.35-7.45 PCO2 ARTERIAL (BEAKER) (test code = 384) 34 mmHg 35-45 L PO2 ARTERIAL (BEAKER) (test code = 385) 107 mmHg 80-90 H O2 SATURATION ARTERIAL (BEAKER) (test code = 386) 98.3 % 96.0 -97.0 H HCO3 ARTERIAL (BEAKER) (test code = 388) 22 mmol/L 21-29 BASE EXCESS ARTERIAL (BEAKER) (test code = 387) -3.0 mmol/L -2.0-3 .0 L PATIENT TEMPERATURE (BEAKER) (test code = 1818) 35.1 C FIO2 (BEAKER) (test code = 1819) 60.0 % CALCIUM, [id number] 18:55:00* Test Item Value Reference Range Interpretation Comments CALCIUM IONIZED (BEAKER) (test code = 698) 1.06 mmol/L 1.12-1.27 L PH, BLOOD (BEAKER) (test code = 1810) 7.42 [id number] 17:40:00* Test Item Value Reference Range Interpretation Comments PARTIAL THROMBOPLASTIN TIME (BEAKER) (test code = 760) 61.7 seconds 22.5-36.0 H POCT-GLUCOSE [id number] 17:09:00* Test Item Value Reference Range Interpretation Comments POC-GLUCOSE METER (BEAKER) (test code = 1538) 156 mg/dL 70-110 H : TESTED AT [address], [address]: Marketing Strategy Manager/Clinical Laboratory Technician ID = [id number] for Nellie Collins (contract) [id number] 15:54:00* Test Item Value Reference Range Interpretation Comments PARTIAL THROMBOPLASTIN TIME (BEAKER) (test code = 760) 114.2 sec onds 22.5-36.0 H BASIC METABOLIC [id number] 15:42:00* Test Item Value Reference Range Interpretation Comments SODIUM (BEAKER) (test code = 381) 140 meq/L 136-145 POTASSIUM (BEAKER) (test code = 379) 2.2 meq/L 3.5-5.1 LL CHLORIDE (BEAKER) (test code = 382) 117 meq/L 98-107 H CO2 (BEAKER) (test code = 355) 19 meq/L 22-29 L BLOOD UREA NITROGEN (BEAKER) (test code = 354) 13 mg/dL 7-21 CREATININE (BEAKER) (test code = 358) 0.50 mg/dL 0.57-1.25 L GLUCOSE RANDOM (BEAKER) (test code = 652) 119 mg/dL 70-105 H CALCIUM (BEAKER) (test code = 697) 5.6 mg/dL 8.4-10.2 LL EGFR (BEAKER) (test code = 1092) 173 mL/min/1.73 sq m ESTIMATED GFR IS NOT ACCURATE CREATININE CLEARANCE IN PREDICTING GLOMERULAR FILTRATION RATE. ESTIMATED GFR IS NOT APPLICABLE FOR DIALYSIS PATIENTS. Marketing Strategy Manager ID - RYANN [id number] 15:42:00* Test Item Value Reference Range Interpretation Comments PHOSPHORUS (BEAKER) (test code = 604) 1.2 mg/dL 2.3-4.7 LL Marketing Strategy Manager ID - RYANN FLACTIC ACID, [id number] 15:37:00* Test Item Value Reference Range Interpretation Comments LACTATE BLOOD ARTERIAL (2) (BEAKER) (test code = 2874) 0.4 mmol/L 0.5-2.2 L Marketing Strategy Manager ID - RYANN JOINERALCIUM, [id number] 15:16:00* Test Item Value Reference Range Interpretation Comments CALCIUM IONIZED (BEAKER) (test code = 698) 1.09 mmol/L 1.12-1.27 L PH, BLOOD (BEAKER) (test code = 1810) 7.42 BLOOD GAS, [id number] 15:15:00* Test Item Value Reference Range Interpretation Comments PH ARTERIAL (BEAKER) (test code = 383) 7.42 7.35-7.45 PCO2 ARTERIAL (BEAKER) (test code = 384) 41 mmHg 35-45 PO2 ARTERIAL (BEAKER) (test code = 385) 81 mmHg 80-90 O2 SATURATION ARTERIAL (BEAKER) (test code = 386) 96.6 % 96.0 -97.0 HCO3 ARTERIAL (BEAKER) (test code = 388) 26 mmol/L 21-29 BASE EXCESS ARTERIAL (BEAKER) (test code = 387) 1.1 mmol/L -2.0-3 .0 PATIENT TEMPERATURE (BEAKER) (test code = 1818) 36.0 C FIO2 (BEAKER) (test code = 1819) 50.0 % POCT-GLUCOSE [id number] 12:09:00* Test Item Value Reference Range Interpretation Comments POC-GLUCOSE METER (BEAKER) (test code = 1538) 188 mg/dL 70-110 H : TESTED AT [address], [address]: Marketing Strategy Manager/Clinical Laboratory Technician ID = [id number] for VINH NUNEZ BLOOD GAS, [id number] 11:51:00* Test Item Value Reference Range Interpretation Comments PH ARTERIAL (BEAKER) (test code = 383) 7.39 7.35-7.45 PCO2 ARTERIAL (BEAKER) (test code = 384) 40 mmHg 35-45 PO2 ARTERIAL (BEAKER) (test code = 385) 155 mmHg 80-90 H O2 SATURATION ARTERIAL (BEAKER) (test code = 386) 99.0 % 96.0 -97.0 H HCO3 ARTERIAL (BEAKER) (test code = 388) 24 mmol/L 21-29 BASE EXCESS ARTERIAL (BEAKER) (test code = 387) -1.1 mmol/L -2.0-3 .0 PATIENT TEMPERATURE (BEAKER) (test code = 1818) 36.0 C FIO2 (BEAKER) (test code = 1819) 50.0 % Hepatitis A antibody, [id number] 11:18:00* Test Item Value Reference Range Interpretation Comments Hep A IgG (test code = 42353-3) Nonreactive Nonreactive LOY (test code = LOY) Marketing Strategy Manager ID - RYANN Ornelas Lab Interpretation (test code = 27888-6) Normal [facility], [id number] 11:18:00* Test Item Value Reference Range Interpretation Comments HEPATITIS A IGG ANTIBODY (BEAKER) (test code = 2797) Nonreactive N onreactive Marketing Strategy Manager ID - RYANN STOUTD, CHEST, 1 VIEW, NON [id number] 08:55:00Reason for exam:->high peek pressureShould this be performed at the bedside?->YesFINAL REPORT History: High peak pressure Comparison: 12/28/2019 Findings: Bilateral pulmonary opacities are without appreciable change. No pleural effusions or pneumothorax are identified. An endotracheal tube is pres ent, with its tip 4.5 cm proximal to the salomón. Nasogastric tube tip is in the region of the stomach. Right jugular catheter tip is in the SVC region. The card iac shadow is normal in size. Signed: Jerald Mendosa MDReport Verified Date/Time: 01/02/2020 08:55:34 Reading Location: [address] Transitional Reading Room C METABOLIC [id number] 08:49:00* Test Item Value Reference Range Interpretation Comments SODIUM (BEAKER) (test code = 381) 134 meq/L 136-145 L POTASSIUM (BEAKER) (test code = 379) 3.7 meq/L 3.5-5.1 CHLORIDE (BEAKER) (test code = 382) 104 meq/L 98-107 CO2 (BEAKER) (test code = 355) 20 meq/L 22-29 L BLOOD UREA NITROGEN (BEAKER) (test code = 354) 20 mg/dL 7-21 CREATININE (BEAKER) (test code = 358) 0.81 mg/dL 0.57-1.25 GLUCOSE RANDOM (BEAKER) (test code = 652) 220 mg/dL 70-105 H CALCIUM (BEAKER) (test code = 697) 7.7 mg/dL 8.4-10.2 L EGFR (BEAKER) (test code = 1092) 99 mL/min/1.73 sq m ESTIMATED GFR IS NOT ACCURATE CREATININE CLEARANCE IN PREDICTING GLOMERULAR FILTRATION RATE. ESTIMATED GFR IS NOT APPLICABLE FOR DIALYSIS PATIENTS. Marketing Strategy Manager ID Monisha FELICIANO FMRSA [id number] 08:47:00* Test Item Value Reference Range Interpretation Comments Result (test code = 6463-4) No MRSA isolated [facility] CenterMR[facility] [id number] 08:47:00* Test Item Value Reference Range Interpretation Comments CULTURE (BEAKER) (test code = 1095) No MRSA isolated SPUTUM CULTURE + GRAM [id number] 08:46:00* Test Item Value Reference Range Interpretation Comments CULTURE (BEAKER) (test code = 1095) 1+ Normal respiratory stacie pre sent GRAM STAIN RESULT (BEAKER) (test code = 1123) 1+ WBCs GRAM STAIN RESULT (BEAKER) (test code = 20213) <1+ epithelial cells GRAM STAIN RESULT (BEAKER) (test code = 23069) 1+ gram posit vince cocci in pairs [id number] 08:43:00* Test Item Value Reference Range Interpretation Comments MAGNESIUM (BEAKER) (test code = 627) 2.3 mg/dL 1.6-2.6 Marketing Strategy Manager ID Monisha FELICIANO [id number] 08:35:00* Test Item Value Reference Range Interpretation Comments PARTIAL THROMBOPLASTIN TIME (BEAKER) (test code = 760) 64.3 seconds 22.5-36.0 H CALCIUM, [id number] 08:23:00* Test Item Value Reference Range Interpretation Comments CALCIUM IONIZED (BEAKER) (test code = 698) 1.04 mmol/L 1.12-1.27 L PH, BLOOD (BEAKER) (test code = 1810) 7.37 BLOOD GAS, [id number] 08:22:00* Test Item Value Reference Range Interpretation Comments PH ARTERIAL (BEAKER) (test code = 383) 7.38 7.35-7.45 PCO2 ARTERIAL (BEAKER) (test code = 384) 40 mmHg 35-45 PO2 ARTERIAL (BEAKER) (test code = 385) 142 mmHg 80-90 H O2 SATURATION ARTERIAL (BEAKER) (test code = 386) 98.8 % 96.0 -97.0 H HCO3 ARTERIAL (BEAKER) (test code = 388) 23 mmol/L 21-29 BASE EXCESS ARTERIAL (BEAKER) (test code = 387) -2.0 mmol/L -2.0-3 .0 PATIENT TEMPERATURE (BEAKER) (test code = 1818) 36.0 C FIO2 (BEAKER) (test code = 1819) 50.0 % [id number] 08:02:00* Test Item Value Reference Range Interpretation Comments FERRITIN (BEAKER) (test code = 361) 4206.07 ng/mL 5.00-275.00 H Marketing Strategy Manager ID - RYANN FPOCT-GLUCOSE [id number] 06:50:00* Test Item Value Reference Range Interpretation Comments POC-GLUCOSE METER (BEAKER) (test code = 1538) 246 mg/dL 70-110 H : TESTED AT [address], [address]: Marketing Strategy Manager/Clinical Laboratory Technician ID = [id number] for FLORES HARRISON [id number] 05:43:00* Test Item Value Reference Range Interpretation Comments PROCALCITONIN (BEAKER) (test code = 3036) 1.43 ng/mL <0.05 H SEPSIS RISK (ng/mL)Low: 0.05-0.50Intermediate: 0.51-2.00High: > =2.01BLOOD GAS, [id number] 05:18:00* Test Item Value Reference Range Interpretation Comments PH ARTERIAL (BEAKER) (test code = 383) 7.30 7.35-7.45 L PCO2 ARTERIAL (BEAKER) (test code = 384) 46 mmHg 35-45 H PO2 ARTERIAL (BEAKER) (test code = 385) 64 mmHg 80-90 L O2 SATURATION ARTERIAL (BEAKER) (test code = 386) 91.0 % 96.0 -97.0 L HCO3 ARTERIAL (BEAKER) (test code = 388) 22 mmol/L 21-29 BASE EXCESS ARTERIAL (BEAKER) (test code = 387) -4.3 mmol/L -2.0-3 .0 L PATIENT TEMPERATURE (BEAKER) (test code = 1818) 36.5 C FIO2 (BEAKER) (test code = 1819) 50.0 % CBC W/PLT COUNT & AUTO [id number] 05:15:00* Test Item Value Reference Range Interpretation Comments WHITE BLOOD CELL COUNT (BEAKER) (test code = 775) 5.8 K/ L 3.5- 10.5 RED BLOOD CELL COUNT (BEAKER) (test code = 761) 2.76 M/ L 4.63-6 .08 L HEMOGLOBIN (BEAKER) (test code = 410) 8.1 GM/DL 13.7-17.5 L HEMATOCRIT (BEAKER) (test code = 411) 26.4 % 40.1-51.0 L MEAN CORPUSCULAR VOLUME (BEAKER) (test code = 753) 95.7 fL 79. 0-92.2 H MEAN CORPUSCULAR HEMOGLOBIN (BEAKER) (test code = 751) 29.3 pg 25.7-32.2 MEAN CORPUSCULAR HEMOGLOBIN CONC (BEAKER) (test code = 752) 30.7 GM/DL 32.3-36.5 L RED CELL DISTRIBUTION WIDTH (BEAKER) (test code = 412) 19.7 % 11.6-14.4 H PLATELET COUNT (BEAKER) (test code = 756) 50 K/CU MM 150-450 L MEAN PLATELET VOLUME (BEAKER) (test code = 754) 12.6 fL 9.4-12 .4 H NUCLEATED RED BLOOD CELLS (BEAKER) (test code = 413) 1 /100 WBC 0 -0 H NEUTROPHILS RELATIVE PERCENT (BEAKER) (test code = 429) 77 % LYMPHOCYTES RELATIVE PERCENT (BEAKER) (test code = 430) 10 % MONOCYTES RELATIVE PERCENT (BEAKER) (test code = 431) 9 % EOSINOPHILS RELATIVE PERCENT (BEAKER) (test code = 432) 0 % BASOPHILS RELATIVE PERCENT (BEAKER) (test code = 437) 0 % NEUTROPHILS ABSOLUTE COUNT (BEAKER) (test code = 670) 4.50 K/ L 1.78-5.38 LYMPHOCYTES ABSOLUTE COUNT (BEAKER) (test code = 414) 0.56 K/ L 1.32-3.57 L MONOCYTES ABSOLUTE COUNT (BEAKER) (test code = 415) 0.51 K/ L 0. 30-0.82 EOSINOPHILS ABSOLUTE COUNT (BEAKER) (test code = 416) 0.02 K/ L 0.04-0.54 L BASOPHILS ABSOLUTE COUNT (BEAKER) (test code = 417) 0.02 K/ L 0. 01-0.08 IMMATURE GRANULOCYTES-RELATIVE PERCENT (BEAKER) (test code = 2801) 4 % 0-1 H [id number] 05:06:00* Test Item Value Reference Range Interpretation Comments PHOSPHORUS (BEAKER) (test code = 604) 2.9 mg/dL 2.3-4.7 Marketing Strategy Manager ID - [id number] 05:06:00* Test Item Value Reference Range Interpretation Comments MAGNESIUM (BEAKER) (test code = 627) 2.2 mg/dL 1.6-2.6 Marketing Strategy Manager ID - DBHEPATIC FUNCTION [id number] 05:06:00* Test Item Value Reference Range Interpretation Comments TOTAL PROTEIN (BEAKER) (test code = 770) 5.8 gm/dL 6.0-8.3 L ALBUMIN (BEAKER) (test code = 1145) 2.7 g/dL 3.5-5.0 L BILIRUBIN TOTAL (BEAKER) (test code = 377) 0.9 mg/dL 0.2-1.2 BILIRUBIN DIRECT (BEAKER) (test code = 706) 0.7 mg/dL 0.1-0.5 H ALKALINE PHOSPHATASE (BEAKER) (test code = 346) 500 U/L 40-150 H AST (SGOT) (BEAKER) (test code = 353) 46 U/L 5-34 H ALT (SGPT) (BEAKER) (test code = 347) 136 U/L 6-55 H Marketing Strategy Manager ID - DBLACTATE DEHYDROGENASE (LDH)2020-01-02 05:06:00* Test Item Value Reference Range Interpretation Comments LACTATE DEHYDROGENASE (BEAKER) (test code = 635) 449 U/L 125-2 20 H Marketing Strategy Manager ID - DBC-REACTIVE [id number] 05:06:00* Test Item Value Reference Range Interpretation Comments C-REACTIVE PROTEIN (BEAKER) (test code = 676) 14.47 mg/dL 0.00-0.5 0 H Marketing Strategy Manager ID - DBCOMPREHENSIVE METABOLIC [id number] 05:06:00* Test Item Value Reference Range Interpretation Comments TOTAL PROTEIN (BEAKER) (test code = 770) 5.8 gm/dL 6.0-8.3 L ALBUMIN (BEAKER) (test code = 1145) 2.7 g/dL 3.5-5.0 L ALKALINE PHOSPHATASE (BEAKER) (test code = 346) 500 U/L 40-150 H BILIRUBIN TOTAL (BEAKER) (test code = 377) 0.9 mg/dL 0.2-1.2 SODIUM (BEAKER) (test code = 381) 135 meq/L 136-145 L POTASSIUM (BEAKER) (test code = 379) 4.1 meq/L 3.5-5.1 CHLORIDE (BEAKER) (test code = 382) 103 meq/L 98-107 CO2 (BEAKER) (test code = 355) 23 meq/L 22-29 BLOOD UREA NITROGEN (BEAKER) (test code = 354) 21 mg/dL 7-21 CREATININE (BEAKER) (test code = 358) 0.88 mg/dL 0.57-1.25 GLUCOSE RANDOM (BEAKER) (test code = 652) 258 mg/dL 70-105 H CALCIUM (BEAKER) (test code = 697) 7.6 mg/dL 8.4-10.2 L AST (SGOT) (BEAKER) (test code = 353) 46 U/L 5-34 H ALT (SGPT) (BEAKER) (test code = 347) 136 U/L 6-55 H EGFR (BEAKER) (test code = 1092) 90 mL/min/1.73 sq m ESTIMATED GFR IS NOT ACCURATE CREATININE CLEARANCE IN PREDICTING GLOMERULAR FILTRATION RATE. ESTIMATED GFR IS NOT APPLICABLE FOR DIALYSIS PATIENTS. Marketing Strategy Manager ID - DBLACTIC ACID, [id number] 04:57:00* Test Item Value Reference Range Interpretation Comments LACTATE BLOOD ARTERIAL (2) (BEAKER) (test code = 2874) 0.7 mmol/L 0.5-2.2 Marketing Strategy Manager ID - [id number] 01:05:00* Test Item Value Reference Range Interpretation Comments PARTIAL THROMBOPLASTIN TIME (BEAKER) (test code = 760) 68.3 seconds 22.5-36.0 H CALCIUM, [id number] 00:54:00* Test Item Value Reference Range Interpretation Comments CALCIUM IONIZED (BEAKER) (test code = 698) 1.04 mmol/L 1.12-1.27 L PH, BLOOD (BEAKER) (test code = 1810) 7.25 POCT-GLUCOSE [id number] 00:50:00* Test Item Value Reference Range Interpretation Comments POC-GLUCOSE METER (BEAKER) (test code = 1538) 258 mg/dL 70-110 H : TESTED AT [place] [id number] [facility] [place], [address]: Marketing Strategy Manager/Clinical Laboratory Technician ID = [id number] for FLORES HARRISON BASIC METABOLIC [id number] 23:02:00* Test Item Value Reference Range Interpretation Comments SODIUM (BEAKER) (test code = 381) 135 meq/L 136-145 L POTASSIUM (BEAKER) (test code = 379) 3.6 meq/L 3.5-5.1 CHLORIDE (BEAKER) (test code = 382) 106 meq/L 98-107 CO2 (BEAKER) (test code = 355) 19 meq/L 22-29 L BLOOD UREA NITROGEN (BEAKER) (test code = 354) 19 mg/dL 7-21 CREATININE (BEAKER) (test code = 358) 0.77 mg/dL 0.57-1.25 GLUCOSE RANDOM (BEAKER) (test code = 652) 232 mg/dL 70-105 H CALCIUM (BEAKER) (test code = 697) 7.1 mg/dL 8.4-10.2 L EGFR (BEAKER) (test code = 1092) 105 mL/min/1.73 sq m ESTIMATED GFR IS NOT ACCURATE CREATININE CLEARANCE IN PREDICTING GLOMERULAR FILTRATION RATE. ESTIMATED GFR IS NOT APPLICABLE FOR DIALYSIS PATIENTS. Marketing Strategy Manager ID - DBBLOOD GAS, [id number] 22:37:00* Test Item Value Reference Range Interpretation Comments PH ARTERIAL (BEAKER) (test code = 383) 7.31 7.35-7.45 L PCO2 ARTERIAL (BEAKER) (test code = 384) 40 mmHg 35-45 PO2 ARTERIAL (BEAKER) (test code = 385) 96 mmHg 80-90 H O2 SATURATION ARTERIAL (BEAKER) (test code = 386) 97.1 % 96.0 -97.0 H HCO3 ARTERIAL (BEAKER) (test code = 388) 20 mmol/L 21-29 L BASE EXCESS ARTERIAL (BEAKER) (test code = 387) -5.9 mmol/L -2.0-3 .0 L PATIENT TEMPERATURE (BEAKER) (test code = 1818) 36.0 C FIO2 (BEAKER) (test code = 1819) 100.0 % [id number] 20:50:00* Test Item Value Reference Range Interpretation Comments MAGNESIUM (BEAKER) (test code = 627) 2.0 mg/dL 1.6-2.6 Marketing Strategy Manager ID - RYANN FPOCT-GLUCOSE [id number] 20:35:00* Test Item Value Reference Range Interpretation Comments POC-GLUCOSE METER (BEAKER) (test code = 1538) 161 mg/dL 70-110 H : TESTED AT [address], [address]: Marketing Strategy Manager/Clinical Laboratory Technician ID = [id number] for JADYN SILVA [id number] 18:00:00* Test Item Value Reference Range Interpretation Comments PARTIAL THROMBOPLASTIN TIME (BEAKER) (test code = 760) 45.6 seconds 22.5-36.0 H BLOOD GAS, [id number] 17:48:00* Test Item Value Reference Range Interpretation Comments PH ARTERIAL (BEAKER) (test code = 383) 7.31 7.35-7.45 L PCO2 ARTERIAL (BEAKER) (test code = 384) 42 mmHg 35-45 PO2 ARTERIAL (BEAKER) (test code = 385) 116 mmHg 80-90 H O2 SATURATION ARTERIAL (BEAKER) (test code = 386) 97.9 % 96.0 -97.0 H HCO3 ARTERIAL (BEAKER) (test code = 388) 21 mmol/L 21-29 BASE EXCESS ARTERIAL (BEAKER) (test code = 387) -5.3 mmol/L -2.0-3 .0 L PATIENT TEMPERATURE (BEAKER) (test code = 1818) 37.0 C FIO2 (BEAKER) (test code = 1819) 60.0 % POCT-GLUCOSE [id number] 17:42:00* Test Item Value Reference Range Interpretation Comments POC-GLUCOSE METER (BEAKER) (test code = 1538) 163 mg/dL 70-110 H : TESTED AT [address], [address]: Marketing Strategy Manager/Clinical Laboratory Technician ID = [id number] for JADYN SILVA BASIC METABOLIC [id number] 17:01:00* Test Item Value Reference Range Interpretation Comments SODIUM (BEAKER) (test code = 381) 136 meq/L 136-145 POTASSIUM (BEAKER) (test code = 379) 3.8 meq/L 3.5-5.1 CHLORIDE (BEAKER) (test code = 382) 105 meq/L 98-107 CO2 (BEAKER) (test code = 355) 22 meq/L 22-29 BLOOD UREA NITROGEN (BEAKER) (test code = 354) 18 mg/dL 7-21 CREATININE (BEAKER) (test code = 358) 0.81 mg/dL 0.57-1.25 GLUCOSE RANDOM (BEAKER) (test code = 652) 195 mg/dL 70-105 H CALCIUM (BEAKER) (test code = 697) 7.0 mg/dL 8.4-10.2 L EGFR (BEAKER) (test code = 1092) 99 mL/min/1.73 sq m ESTIMATED GFR IS NOT ACCURATE CREATININE CLEARANCE IN PREDICTING GLOMERULAR FILTRATION RATE. ESTIMATED GFR IS NOT APPLICABLE FOR DIALYSIS PATIENTS. Marketing Strategy Manager ID - RYANN [id number] 16:57:00* Test Item Value Reference Range Interpretation Comments PHOSPHORUS (BEAKER) (test code = 604) 3.1 mg/dL 2.3-4.7 Marketing Strategy Manager ID - RYANN FLACTIC ACID, [id number] 16:53:00* Test Item Value Reference Range Interpretation Comments LACTATE BLOOD ARTERIAL (2) (BEAKER) (test code = 2874) 0.6 mmol/L 0.5-2.2 Marketing Strategy Manager ID - RYANN FCBC W/PLT COUNT & AUTO [id number] 16:45:00* Test Item Value Reference Range Interpretation Comments WHITE BLOOD CELL COUNT (BEAKER) (test code = 775) 5.7 K/ L 3.5- 10.5 RED BLOOD CELL COUNT (BEAKER) (test code = 761) 2.69 M/ L 4.63-6 .08 L HEMOGLOBIN (BEAKER) (test code = 410) 7.9 GM/DL 13.7-17.5 L HEMATOCRIT (BEAKER) (test code = 411) 25.7 % 40.1-51.0 L MEAN CORPUSCULAR VOLUME (BEAKER) (test code = 753) 95.5 fL 79. 0-92.2 H MEAN CORPUSCULAR HEMOGLOBIN (BEAKER) (test code = 751) 29.4 pg 25.7-32.2 MEAN CORPUSCULAR HEMOGLOBIN CONC (BEAKER) (test code = 752) 30.7 GM/DL 32.3-36.5 L RED CELL DISTRIBUTION WIDTH (BEAKER) (test code = 412) 20.2 % 11.6-14.4 H PLATELET COUNT (BEAKER) (test code = 756) 41 K/CU MM 150-450 L MEAN PLATELET VOLUME (BEAKER) (test code = 754) 12.7 fL 9.4-12 .4 H NUCLEATED RED BLOOD CELLS (BEAKER) (test code = 413) 2 /100 WBC 0 -0 H NEUTROPHILS RELATIVE PERCENT (BEAKER) (test code = 429) 74 % LYMPHOCYTES RELATIVE PERCENT (BEAKER) (test code = 430) 13 % MONOCYTES RELATIVE PERCENT (BEAKER) (test code = 431) 7 % EOSINOPHILS RELATIVE PERCENT (BEAKER) (test code = 432) 2 % BASOPHILS RELATIVE PERCENT (BEAKER) (test code = 437) 1 % NEUTROPHILS ABSOLUTE COUNT (BEAKER) (test code = 670) 4.18 K/ L 1.78-5.38 LYMPHOCYTES ABSOLUTE COUNT (BEAKER) (test code = 414) 0.71 K/ L 1.32-3.57 L MONOCYTES ABSOLUTE COUNT (BEAKER) (test code = 415) 0.41 K/ L 0. 30-0.82 EOSINOPHILS ABSOLUTE COUNT (BEAKER) (test code = 416) 0.13 K/ L 0.04-0.54 BASOPHILS ABSOLUTE COUNT (BEAKER) (test code = 417) 0.03 K/ L 0. 01-0.08 IMMATURE GRANULOCYTES-RELATIVE PERCENT (BEAKER) (test code = 2801) 4 % 0-1 H BLOOD GAS, [id number] 16:38:00* Test Item Value Reference Range Interpretation Comments PH ARTERIAL (BEAKER) (test code = 383) 7.31 7.35-7.45 L PCO2 ARTERIAL (BEAKER) (test code = 384) 41 mmHg 35-45 PO2 ARTERIAL (BEAKER) (test code = 385) 204 mmHg 80-90 H O2 SATURATION ARTERIAL (BEAKER) (test code = 386) 99.3 % 96.0 -97.0 H HCO3 ARTERIAL (BEAKER) (test code = 388) 21 mmol/L 21-29 BASE EXCESS ARTERIAL (BEAKER) (test code = 387) -5.3 mmol/L -2.0-3 .0 L PATIENT TEMPERATURE (BEAKER) (test code = 1818) 37.0 C FIO2 (BEAKER) (test code = 1819) 40.0 % CALCIUM, [id number] 16:38:00* Test Item Value Reference Range Interpretation Comments CALCIUM IONIZED (BEAKER) (test code = 698) 0.95 mmol/L 1.12-1.27 L PH, BLOOD (BEAKER) (test code = 1810) 7.31 [id number] 12:31:00* Test Item Value Reference Range Interpretation Comments PARTIAL THROMBOPLASTIN TIME (BEAKER) (test code = 760) 44.4 seconds 22.5-36.0 H POCT-GLUCOSE [id number] 12:19:00* Test Item Value Reference Range Interpretation Comments POC-GLUCOSE METER (BEAKER) (test code = 1538) 107 mg/dL 70-110 : TESTED AT [facility] [address] [facility] [place], [address]: Marketing Strategy Manager/Clinical Laboratory Technician ID = [id number] for JADYN SILVA RAD, ABDOMEN/KUB, 1 VIEW [id number] 12:00:00Reason for exam:->coantuipation FINAL REPORT TECHNIQUE: Abdomen single. INDICATION: Const ipation. COMPARISON: 12/13/2019. FINDINGS:NG tube tip terminates over the gastric body. Bowel gas pattern is indeterminate due to paucity of small bowel gas. Ther e is gaseous distention of nondilated loops of colon. Small amount of stool is n oted in the colon. Patchy bibasilar pulmonary opacities persist. IMPRESSION:Ind eterminate bowel gas pattern. NG tube tip terminates over the gastric body.. Sig jo: Ronnie Huang MDReport Verified Date/Time: 01/01/2020 12:00:50 Re ading Location: [facility] C013Y CT Body Reading Room C METABOLIC [id number] 10:52:00* Test Item Value Reference Range Interpretation Comments SODIUM (BEAKER) (test code = 381) 135 meq/L 136-145 L POTASSIUM (BEAKER) (test code = 379) 3.3 meq/L 3.5-5.1 L CHLORIDE (BEAKER) (test code = 382) 107 meq/L 98-107 CO2 (BEAKER) (test code = 355) 24 meq/L 22-29 BLOOD UREA NITROGEN (BEAKER) (test code = 354) 16 mg/dL 7-21 CREATININE (BEAKER) (test code = 358) 0.76 mg/dL 0.57-1.25 GLUCOSE RANDOM (BEAKER) (test code = 652) 130 mg/dL 70-105 H CALCIUM (BEAKER) (test code = 697) 6.5 mg/dL 8.4-10.2 L EGFR (BEAKER) (test code = 1092) 106 mL/min/1.73 sq m ESTIMATED GFR IS NOT ACCURATE CREATININE CLEARANCE IN PREDICTING GLOMERULAR FILTRATION RATE. ESTIMATED GFR IS NOT APPLICABLE FOR DIALYSIS PATIENTS. Marketing Strategy Manager ID - RYANN FBLOOD GAS, [id number] 10:26:00* Test Item Value Reference Range Interpretation Comments PH ARTERIAL (BEAKER) (test code = 383) 7.35 7.35-7.45 PCO2 ARTERIAL (BEAKER) (test code = 384) 46 mmHg 35-45 H PO2 ARTERIAL (BEAKER) (test code = 385) 109 mmHg 80-90 H O2 SATURATION ARTERIAL (BEAKER) (test code = 386) 97.7 % 96.0 -97.0 H HCO3 ARTERIAL (BEAKER) (test code = 388) 25 mmol/L 21-29 BASE EXCESS ARTERIAL (BEAKER) (test code = 387) -0.8 mmol/L -2.0-3 .0 PATIENT TEMPERATURE (BEAKER) (test code = 1818) 37.0 C FIO2 (BEAKER) (test code = 1819) 45.0 % POCT-GLUCOSE [id number] 10:23:00* Test Item Value Reference Range Interpretation Comments POC-GLUCOSE METER (BEAKER) (test code = 1538) 107 mg/dL 70-110 : TESTED AT [facility] [address] [place] [address], [address]: Marketing Strategy Manager/Clinical Laboratory Technician ID = [id number] for JADYN SILVA [id number] 10:17:00* Test Item Value Reference Range Interpretation Comments Haptoglobin (test code = 4542-7) 106 mg/dL - LOY (test code = LOY) Marketing Strategy Manager ID - RYANN Ornelas Lab Interpretation (test code = 62730-4) [id number] 10:17:00* Test Item Value Reference Range Interpretation Comments HAPTOGLOBIN (BEAKER) (test code = 366) 106 mg/dL - Marketing Strategy Manager ID - RYANN [id number] 08:43:00* Test Item Value Reference Range Interpretation Comments MAGNESIUM (BEAKER) (test code = 627) 2.2 mg/dL 1.6-2.6 Marketing Strategy Manager ID - EDASICBC W/PLT COUNT & AUTO [id number] 08:40:00* Test Item Value Reference Range Interpretation Comments WHITE BLOOD CELL COUNT (BEAKER) (test code = 775) 7.4 K/ L 3.5- 10.5 RED BLOOD CELL COUNT (BEAKER) (test code = 761) 2.79 M/ L 4.63-6 .08 L HEMOGLOBIN (BEAKER) (test code = 410) 8.3 GM/DL 13.7-17.5 L HEMATOCRIT (BEAKER) (test code = 411) 26.4 % 40.1-51.0 L MEAN CORPUSCULAR VOLUME (BEAKER) (test code = 753) 94.6 fL 79. 0-92.2 H MEAN CORPUSCULAR HEMOGLOBIN (BEAKER) (test code = 751) 29.7 pg 25.7-32.2 MEAN CORPUSCULAR HEMOGLOBIN CONC (BEAKER) (test code = 752) 31.4 GM/DL 32.3-36.5 L RED CELL DISTRIBUTION WIDTH (BEAKER) (test code = 412) 19.6 % 11.6-14.4 H PLATELET COUNT (BEAKER) (test code = 756) 54 K/CU MM 150-450 L MEAN PLATELET VOLUME (BEAKER) (test code = 754) 13.0 fL 9.4-12 .4 H NUCLEATED RED BLOOD CELLS (BEAKER) (test code = 413) 1 /100 WBC 0 -0 H NEUTROPHILS RELATIVE PERCENT (BEAKER) (test code = 429) 72 % LYMPHOCYTES RELATIVE PERCENT (BEAKER) (test code = 430) 14 % MONOCYTES RELATIVE PERCENT (BEAKER) (test code = 431) 8 % EOSINOPHILS RELATIVE PERCENT (BEAKER) (test code = 432) 1 % BASOPHILS RELATIVE PERCENT (BEAKER) (test code = 437) 0 % NEUTROPHILS ABSOLUTE COUNT (BEAKER) (test code = 670) 5.35 K/ L 1.78-5.38 LYMPHOCYTES ABSOLUTE COUNT (BEAKER) (test code = 414) 1.01 K/ L 1.32-3.57 L MONOCYTES ABSOLUTE COUNT (BEAKER) (test code = 415) 0.57 K/ L 0. 30-0.82 EOSINOPHILS ABSOLUTE COUNT (BEAKER) (test code = 416) 0.09 K/ L 0.04-0.54 BASOPHILS ABSOLUTE COUNT (BEAKER) (test code = 417) 0.03 K/ L 0. 01-0.08 IMMATURE GRANULOCYTES-RELATIVE PERCENT (BEAKER) (test code = 2801) 5 % 0-1 H CALCIUM, [id number] 08:26:00* Test Item Value Reference Range Interpretation Comments CALCIUM IONIZED (BEAKER) (test code = 698) 0.95 mmol/L 1.12-1.27 L PH, BLOOD (BEAKER) (test code = 1810) 7.34 POCT-GLUCOSE [id number] 08:21:00* Test Item Value Reference Range Interpretation Comments POC-GLUCOSE METER (BEAKER) (test code = 1538) 118 mg/dL 70-110 H : TESTED AT [address], [address]: Marketing Strategy Manager/Clinical Laboratory Technician ID = [id number] for JADYN SILVA PROTHROMBIN TIME/[id number] 07:54:00* Test Item Value Reference Range Interpretation Comments PROTIME (BEAKER) (test code = 759) 14.2 seconds 11.9-14.2 INR (BEAKER) (test code = 370) 1.1 <=5.9 Effective 11/04/2018: PT Reference Range ChangeNew: 11.9-14.2 Previous: 11.7-14. 7RECOMMENDED COUMADIN/WARFARIN INR THERAPY RANGESSTANDARD DOSE: 2.0-3.0 Include s: PROPHYLAXIS for venous thrombosis, systemic embolization; TREATMENT for venou s thrombosis and/or pulmonary embolus.HIGH RISK: Target INR is 2.5-3.5 for patie nts wiht mechanical heart valves.Immunoglobulin M (IgM)2020-01-01 07:16:00* Test Item Value Reference Range Interpretation Comments IgM (test code = 2464-6) 151 mg/dL 22-293 LOY (test code = LOY) Marketing Strategy Manager ID Monisha RYANN F Lab Interpretation (test code = 87532-6) [facility] 07:16:00* Test Item Value Reference Range Interpretation Comments IgA (test code = 2458-8) 170 mg/dL 63-484 LOY (test code = LOY) Marketing Strategy Manager ID Monisha RYANN Ornelas Lab Interpretation (test code = 83189-2) [facility]GLOB[facility] (IGM)2020-01-01 07:16:00* Test Item Value Reference Range Interpretation Comments IMMUNOGLOBULIN M (IGM) (BEAKER) (test code = 638) 151 mg/dL 22-2 93 Marketing Strategy Manager ID Monisha FELICIANO FIMMUNOGLOBULIN A (IGA)2020-01-01 07:16:00* Test Item Value Reference Range Interpretation Comments IMMUNOGLOBULIN A (IGA) (BEAKER) (test code = 639) 170 mg/dL 63-4 84 Marketing Strategy Manager ID Monisha FELICIANO FPOCT-GLUCOSE [id number] 07:06:00* Test Item Value Reference Range Interpretation Comments POC-GLUCOSE METER (BEAKER) (test code = 1538) 109 mg/dL 70-110 : TESTED AT [address], [address]: Marketing Strategy Manager/Clinical Laboratory Technician ID = [id number] for Liv Dugan [id number] 06:21:00* Test Item Value Reference Range Interpretation Comments PARTIAL THROMBOPLASTIN TIME (BEAKER) (test code = 760) 41.1 seconds 22.5-36.0 H Immunoglobulin G (IgG)2020-01-01 06:09:00* Test Item Value Reference Range Interpretation Comments IgG (test code = 2465-3) 770 mg/dL 540-1822 LOY (test code = LOY) Marketing Strategy Manager ID Monisha VICTOR M Lab Interpretation (test code = 06904-8) [facility] (IGG)2020-01-01 06:09:00* Test Item Value Reference Range Interpretation Comments IMMUNOGLOBULIN G (IGG) (BEAKER) (test code = 427) 770 mg/dL 540- 1,822 Marketing Strategy Manager ID - DBPOCT-GLUCOSE [id number] 06:03:00* Test Item Value Reference Range Interpretation Comments POC-GLUCOSE METER (BEAKER) (test code = 1538) 139 mg/dL 70-110 H : TESTED AT [place] [id number] [facility] [place], [address]: Marketing Strategy Manager/Clinical Laboratory Technician ID = [id number] for Liv Dugan BLOOD GAS, [id number] 05:58:00* Test Item Value Reference Range Interpretation Comments PH ARTERIAL (BEAKER) (test code = 383) 7.36 7.35-7.45 PCO2 ARTERIAL (BEAKER) (test code = 384) 49 mmHg 35-45 H PO2 ARTERIAL (BEAKER) (test code = 385) 79 mmHg 80-90 L O2 SATURATION ARTERIAL (BEAKER) (test code = 386) 95.4 % 96.0 -97.0 L HCO3 ARTERIAL (BEAKER) (test code = 388) 27 mmol/L 21-29 BASE EXCESS ARTERIAL (BEAKER) (test code = 387) 1.1 mmol/L -2.0-3 .0 PATIENT TEMPERATURE (BEAKER) (test code = 1818) 36.5 C FIO2 (BEAKER) (test code = 1819) 45.0 % POCT-GLUCOSE [id number] 05:18:00* Test Item Value Reference Range Interpretation Comments POC-GLUCOSE METER (BEAKER) (test code = 1538) 130 mg/dL 70-110 H : TESTED AT [address], [address]: Marketing Strategy Manager/Clinical Laboratory Technician ID = [id number] for Liv Dugan COMPREHENSIVE METABOLIC [id number] 04:48:00* Test Item Value Reference Range Interpretation Comments TOTAL PROTEIN (BEAKER) (test code = 770) 5.1 gm/dL 6.0-8.3 L ALBUMIN (BEAKER) (test code = 1145) 2.4 g/dL 3.5-5.0 L ALKALINE PHOSPHATASE (BEAKER) (test code = 346) 466 U/L 40-150 H BILIRUBIN TOTAL (BEAKER) (test code = 377) 0.9 mg/dL 0.2-1.2 SODIUM (BEAKER) (test code = 381) 133 meq/L 136-145 L POTASSIUM (BEAKER) (test code = 379) 3.5 meq/L 3.5-5.1 CHLORIDE (BEAKER) (test code = 382) 105 meq/L 98-107 CO2 (BEAKER) (test code = 355) 21 meq/L 22-29 L BLOOD UREA NITROGEN (BEAKER) (test code = 354) 19 mg/dL 7-21 CREATININE (BEAKER) (test code = 358) 0.88 mg/dL 0.57-1.25 GLUCOSE RANDOM (BEAKER) (test code = 652) 182 mg/dL 70-105 H CALCIUM (BEAKER) (test code = 697) 6.1 mg/dL 8.4-10.2 L AST (SGOT) (BEAKER) (test code = 353) 76 U/L 5-34 H ALT (SGPT) (BEAKER) (test code = 347) 165 U/L 6-55 H EGFR (BEAKER) (test code = 1092) 90 mL/min/1.73 sq m ESTIMATED GFR IS NOT ACCURATE CREATININE CLEARANCE IN PREDICTING GLOMERULAR FILTRATION RATE. ESTIMATED GFR IS NOT APPLICABLE FOR DIALYSIS PATIENTS. Marketing Strategy Manager ID - [id number] 04:44:00* Test Item Value Reference Range Interpretation Comments PHOSPHORUS (BEAKER) (test code = 604) 2.5 mg/dL 2.3-4.7 Marketing Strategy Manager ID - [id number] 04:44:00* Test Item Value Reference Range Interpretation Comments MAGNESIUM (BEAKER) (test code = 627) 2.2 mg/dL 1.6-2.6 Marketing Strategy Manager ID - DBHEPATIC FUNCTION [id number] 04:44:00* Test Item Value Reference Range Interpretation Comments TOTAL PROTEIN (BEAKER) (test code = 770) 5.1 gm/dL 6.0-8.3 L ALBUMIN (BEAKER) (test code = 1145) 2.4 g/dL 3.5-5.0 L BILIRUBIN TOTAL (BEAKER) (test code = 377) 0.9 mg/dL 0.2-1.2 BILIRUBIN DIRECT (BEAKER) (test code = 706) 0.6 mg/dL 0.1-0.5 H ALKALINE PHOSPHATASE (BEAKER) (test code = 346) 466 U/L 40-150 H AST (SGOT) (BEAKER) (test code = 353) 76 U/L 5-34 H ALT (SGPT) (BEAKER) (test code = 347) 165 U/L 6-55 H Marketing Strategy Manager ID - DBCBC W/PLT COUNT & AUTO [id number] 04:30:00* Test Item Value Reference Range Interpretation Comments WHITE BLOOD CELL COUNT (BEAKER) (test code = 775) 6.6 K/ L 3.5- 10.5 RED BLOOD CELL COUNT (BEAKER) (test code = 761) 2.65 M/ L 4.63-6 .08 L HEMOGLOBIN (BEAKER) (test code = 410) 7.9 GM/DL 13.7-17.5 L HEMATOCRIT (BEAKER) (test code = 411) 25.2 % 40.1-51.0 L MEAN CORPUSCULAR VOLUME (BEAKER) (test code = 753) 95.1 fL 79. 0-92.2 H MEAN CORPUSCULAR HEMOGLOBIN (BEAKER) (test code = 751) 29.8 pg 25.7-32.2 MEAN CORPUSCULAR HEMOGLOBIN CONC (BEAKER) (test code = 752) 31.3 GM/DL 32.3-36.5 L RED CELL DISTRIBUTION WIDTH (BEAKER) (test code = 412) 19.2 % 11.6-14.4 H PLATELET COUNT (BEAKER) (test code = 756) 52 K/CU MM 150-450 L Discordant PLT result compared to previous result; clinical correlation required. MEAN PLATELET VOLUME (BEAKER) (test code = 754) 12.9 fL 9.4-12 .4 H NUCLEATED RED BLOOD CELLS (BEAKER) (test code = 413) 2 /100 WBC 0 -0 H NEUTROPHILS RELATIVE PERCENT (BEAKER) (test code = 429) 76 % LYMPHOCYTES RELATIVE PERCENT (BEAKER) (test code = 430) 12 % MONOCYTES RELATIVE PERCENT (BEAKER) (test code = 431) 7 % EOSINOPHILS RELATIVE PERCENT (BEAKER) (test code = 432) 1 % BASOPHILS RELATIVE PERCENT (BEAKER) (test code = 437) 0 % NEUTROPHILS ABSOLUTE COUNT (BEAKER) (test code = 670) 4.97 K/ L 1.78-5.38 LYMPHOCYTES ABSOLUTE COUNT (BEAKER) (test code = 414) 0.75 K/ L 1.32-3.57 L MONOCYTES ABSOLUTE COUNT (BEAKER) (test code = 415) 0.43 K/ L 0. 30-0.82 EOSINOPHILS ABSOLUTE COUNT (BEAKER) (test code = 416) 0.05 K/ L 0.04-0.54 BASOPHILS ABSOLUTE COUNT (BEAKER) (test code = 417) 0.02 K/ L 0. 01-0.08 IMMATURE GRANULOCYTES-RELATIVE PERCENT (BEAKER) (test code = 2801) 5 % 0-1 H LACTIC ACID, [id number] 04:28:00* Test Item Value Reference Range Interpretation Comments LACTATE BLOOD ARTERIAL (2) (BEAKER) (test code = 2874) 0.8 mmol/L 0.5-2.2 Marketing Strategy Manager ID - EDASIBLOOD GAS, [id number] 04:23:00* Test Item Value Reference Range Interpretation Comments PH ARTERIAL (BEAKER) (test code = 383) 7.38 7.35-7.45 PCO2 ARTERIAL (BEAKER) (test code = 384) 44 mmHg 35-45 PO2 ARTERIAL (BEAKER) (test code = 385) 221 mmHg 80-90 H O2 SATURATION ARTERIAL (BEAKER) (test code = 386) 99.4 % 96.0 -97.0 H HCO3 ARTERIAL (BEAKER) (test code = 388) 25 mmol/L 21-29 BASE EXCESS ARTERIAL (BEAKER) (test code = 387) -0.1 mmol/L -2.0-3 .0 PATIENT TEMPERATURE (BEAKER) (test code = 1818) 37.0 C FIO2 (BEAKER) (test code = 1819) 45.0 % CALCIUM, [id number] 04:23:00* Test Item Value Reference Range Interpretation Comments CALCIUM IONIZED (BEAKER) (test code = 698) 0.94 mmol/L 1.12-1.27 L PH, BLOOD (BEAKER) (test code = 1810) 7.35 POCT-GLUCOSE [id number] 04:07:00* Test Item Value Reference Range Interpretation Comments POC-GLUCOSE METER (BEAKER) (test code = 1538) 171 mg/dL 70-110 H : TESTED AT [address], [id number]: Marketing Strategy Manager/Clinical Laboratory Technician ID = [id number] for Liv Dugan POCT-GLUCOSE [id number] 03:17:00* Test Item Value Reference Range Interpretation Comments POC-GLUCOSE METER (BEAKER) (test code = 1538) 156 mg/dL 70-110 H : TESTED [place] [id number] [facility] [place], [id number]: Marketing Strategy Manager/Clinical Laboratory Technician ID = [id number] for Liv Dugan POCT-GLUCOSE [id number] 02:14:00* Test Item Value Reference Range Interpretation Comments POC-GLUCOSE METER (BEAKER) (test code = 1538) 183 mg/dL 70-110 H : TESTED AT [address], [address]: Marketing Strategy Manager/Clinical Laboratory Technician ID = [id number] for Liv Dugan POCT-GLUCOSE [id number] 01:16:00* Test Item Value Reference Range Interpretation Comments POC-GLUCOSE METER (BEAKER) (test code = 1538) 172 mg/dL 70-110 H : TESTED AT [address], [address]: Marketing Strategy Manager/Clinical Laboratory Technician ID = [id number] for Liv Dugan [id number] 00:22:00* Test Item Value Reference Range Interpretation Comments PARTIAL THROMBOPLASTIN TIME (BEAKER) (test code = 760) 33.3 seconds 22.5-36.0 POCT-GLUCOSE [id number] 00:21:00* Test Item Value Reference Range Interpretation Comments POC-GLUCOSE METER (BEAKER) (test code = 1538) 166 mg/dL 70-110 H : TESTED AT [address], [address]: Marketing Strategy Manager/Clinical Laboratory Technician ID = [id number] for Liv Dugan HEMOGLOBIN AND [id number] 22:44:00* Test Item Value Reference Range Interpretation Comments HEMOGLOBIN (BEAKER) (test code = 410) 6.5 GM/DL 13.7-17.5 L HEMATOCRIT (BEAKER) (test code = 411) 21.5 % 40.1-51.0 L Marketing Strategy Manager ID - [id number], [id number] 22:25:00* Test Item Value Reference Range Interpretation Comments CALCIUM IONIZED (BEAKER) (test code = 698) 0.86 mmol/L 1.12-1.27 L PH, BLOOD (BEAKER) (test code = 1810) 7.29 BASIC METABOLIC [id number] 21:51:00* Test Item Value Reference Range Interpretation Comments SODIUM (BEAKER) (test code = 381) 136 meq/L 136-145 POTASSIUM (BEAKER) (test code = 379) 3.9 meq/L 3.5-5.1 Specimen slightly hemolyzed CHLORIDE (BEAKER) (test code = 382) 110 meq/L 98-107 H CO2 (BEAKER) (test code = 355) 19 meq/L 22-29 L BLOOD UREA NITROGEN (BEAKER) (test code = 354) 18 mg/dL 7-21 CREATININE (BEAKER) (test code = 358) 0.85 mg/dL 0.57-1.25 Specimen slightly hemolyzed GLUCOSE RANDOM (BEAKER) (test code = 652) 224 mg/dL 70-105 H CALCIUM (BEAKER) (test code = 697) 5.9 mg/dL 8.4-10.2 LL EGFR (BEAKER) (test code = 1092) 94 mL/min/1.73 sq m ESTIMATED GFR IS NOT ACCURATE CREATININE CLEARANCE IN PREDICTING GLOMERULAR FILTRATION RATE. ESTIMATED GFR IS NOT APPLICABLE FOR DIALYSIS PATIENTS. Marketing Strategy Manager ID - [id number] 21:48:00* Test Item Value Reference Range Interpretation Comments MAGNESIUM (BEAKER) (test code = 627) 1.8 mg/dL 1.6-2.6 Specimen slightly hemolyzed Marketing Strategy Manager ID - BSBLOOD GAS, [id number] 21:07:00* Test Item Value Reference Range Interpretation Comments PH ARTERIAL (BEAKER) (test code = 383) 7.31 7.35-7.45 L PCO2 ARTERIAL (BEAKER) (test code = 384) 45 mmHg 35-45 PO2 ARTERIAL (BEAKER) (test code = 385) 65 mmHg 80-90 L O2 SATURATION ARTERIAL (BEAKER) (test code = 386) 91.0 % 96.0 -97.0 L HCO3 ARTERIAL (BEAKER) (test code = 388) 22 mmol/L 21-29 BASE EXCESS ARTERIAL (BEAKER) (test code = 387) -4.1 mmol/L -2.0-3 .0 L PATIENT TEMPERATURE (BEAKER) (test code = 1818) 37.0 C FIO2 (BEAKER) (test code = 1819) 40.0 % [id number] 18:11:00* Test Item Value Reference Range Interpretation Comments PARTIAL THROMBOPLASTIN TIME (BEAKER) (test code = 760) 25.9 seconds 22.5-36.0 Hepatitis B surface [id number] 18:10:00* Test Item Value Reference Range Interpretation Comments Hep B S Ab (test code = 18230-4) <8.0 <8.0 mIU/mL LOY (test code = LOY) Marketing Strategy Manager ID - DB Lab Interpretation (test code = 40025-0) [facility] [id number] 18:10:00* Test Item Value Reference Range Interpretation Comments HEPATITIS B SURFACE ANTIBODY (BEAKER) (test code = 647) < mIU/mL <8.0 Marketing Strategy Manager ID - DBHepatitis B core antibody, [id number] 18:08:00* Test Item Value Reference Range Interpretation Comments Hep B Core Total Ab (test code = 49402-5) Nonreactive Nonreactive LOY (test code = LOY) Marketing Strategy Manager ID - DB Lab Interpretation (test code = 17706-0) [facility], [id number] 18:08:00* Test Item Value Reference Range Interpretation Comments Hep A IgM (test code = 58925-8) Nonreactive Nonreactive LOY (test code = LOY) Marketing Strategy Manager ID - DB Lab Interpretation (test code = 30067-0) Normal [facility] [id number] 18:08:00* Test Item Value Reference Range Interpretation Comments Hepatitis C Ab (test code = 21768-6) Nonreactive Nonreactive LOY (test code = LOY) Marketing Strategy Manager ID - DB Lab Interpretation (test code = 14722-1) Normal [facility] SURFACE [id number] 18:08:00* Test Item Value Reference Range Interpretation Comments HEPATITIS B SURFACE ANTIGEN (2) (BEAKER) (test code = 2585) Nonreactive Nonreactive Specimen is considered negative for HBsAg.HEPATITIS C [id number] 18:08:00* Test Item Value Reference Range Interpretation Comments HEPATITIS C ANTIBODY (BEAKER) (test code = 367) Nonreactive Nonrea ctive Marketing Strategy Manager ID - DBHEPATITIS A ANTIBODY, [id number] 18:08:00* Test Item Value Reference Range Interpretation Comments HEPATITIS A IGM ANTIBODY (BEAKER) (test code = 498) Nonreactive No nreactive Marketing Strategy Manager ID - DBHEPATITIS B CORE ANTIBODY, [id number] 18:08:00* Test Item Value Reference Range Interpretation Comments HEPATITIS B CORE TOTAL ANTIBODY (BEAKER) (test code = 497) N onreactive Nonreactive Marketing Strategy Manager ID - DBPOCT-GLUCOSE [id number] 18:04:00* Test Item Value Reference Range Interpretation Comments POC-GLUCOSE METER (BEAKER) (test code = 1538) 160 mg/dL 70-110 H : TESTED AT [address], [address]: Marketing Strategy Manager/Clinical Laboratory Technician ID = [id number] for RICHELLE AGARWAL BASIC METABOLIC [id number] 17:36:00* Test Item Value Reference Range Interpretation Comments SODIUM (BEAKER) (test code = 381) 135 meq/L 136-145 L POTASSIUM (BEAKER) (test code = 379) 3.8 meq/L 3.5-5.1 CHLORIDE (BEAKER) (test code = 382) 104 meq/L 98-107 CO2 (BEAKER) (test code = 355) 26 meq/L 22-29 BLOOD UREA NITROGEN (BEAKER) (test code = 354) 20 mg/dL 7-21 CREATININE (BEAKER) (test code = 358) 1.13 mg/dL 0.57-1.25 GLUCOSE RANDOM (BEAKER) (test code = 652) 128 mg/dL 70-105 H CALCIUM (BEAKER) (test code = 697) 7.5 mg/dL 8.4-10.2 L EGFR (BEAKER) (test code = 1092) 68 mL/min/1.73 sq m ESTIMATED GFR IS NOT ACCURATE CREATININE CLEARANCE IN PREDICTING GLOMERULAR FILTRATION RATE. ESTIMATED GFR IS NOT APPLICABLE FOR DIALYSIS PATIENTS. Marketing Strategy Manager ID - [id number] 17:32:00* Test Item Value Reference Range Interpretation Comments PHOSPHORUS (BEAKER) (test code = 604) 2.7 mg/dL 2.3-4.7 Marketing Strategy Manager ID - BSLACTIC ACID, [id number] 17:30:00* Test Item Value Reference Range Interpretation Comments LACTATE BLOOD ARTERIAL (2) (BEAKER) (test code = 2874) 0.8 mmol/L 0.5-2.2 Marketing Strategy Manager ID - BSCALCIUM, [id number] 17:12:00* Test Item Value Reference Range Interpretation Comments CALCIUM IONIZED (BEAKER) (test code = 698) 0.93 mmol/L 1.12-1.27 L PH, BLOOD (BEAKER) (test code = 1810) 7.33 BLOOD GAS, [id number] 17:12:00* Test Item Value Reference Range Interpretation Comments PH ARTERIAL (BEAKER) (test code = 383) 7.33 7.35-7.45 L PCO2 ARTERIAL (BEAKER) (test code = 384) 46 mmHg 35-45 H PO2 ARTERIAL (BEAKER) (test code = 385) 116 mmHg 80-90 H O2 SATURATION ARTERIAL (BEAKER) (test code = 386) 97.9 % 96.0 -97.0 H HCO3 ARTERIAL (BEAKER) (test code = 388) 24 mmol/L 21-29 BASE EXCESS ARTERIAL (BEAKER) (test code = 387) -2.2 mmol/L -2.0-3 .0 L PATIENT TEMPERATURE (BEAKER) (test code = 1818) 37.0 C FIO2 (BEAKER) (test code = 1819) 40.0 % HEMOGLOBIN AND [id number] 17:03:00* Test Item Value Reference Range Interpretation Comments HEMOGLOBIN (BEAKER) (test code = 410) 7.9 GM/DL 13.7-17.5 L HEMATOCRIT (BEAKER) (test code = 411) 26.0 % 40.1-51.0 L Marketing Strategy Manager ID - 6000POCT-GLUCOSE [id number] 16:22:00* Test Item Value Reference Range Interpretation Comments POC-GLUCOSE METER (BEAKER) (test code = 1538) 96 mg/dL 70-110 : TESTED AT [facility] [address] [facility], [address]: Marketing Strategy Manager/Clinical Laboratory Technician ID = [id number] for JADYN SILVA Iron, TIBC, % sat. (without ferritin)2019 15:36:00* Test Item Value Reference Range Interpretation Comments Iron (test code = 2498-4) 112.0 ug/dL 40-160 TIBC (test code = 2500-7) 164 ug/dL 250-450 L Iron % Saturation (test code = 2502-3) 68 % 20-55 H LOY (test code = LOY) Marketing Strategy Manager ID - BS Lab Interpretation (test code = 33956-7) Abnormal [facility], % SAT. (WITHOUT FERRITIN)2019 15:36:00* Test Item Value Reference Range Interpretation Comments IRON (BEAKER) (test code = 547) 112.0 ug/dL 40.0-160.0 TOTAL IRON BINDING CAPACITY (BEAKER) (test code = 769) 164 ug/dL 250-450 L IRON % SATURATION (2) (BEAKER) (test code = 2590) 68 % 20-5 5 H Marketing Strategy Manager ID - BSPOCT-GLUCOSE [id number] 14:26:00* Test Item Value Reference Range Interpretation Comments POC-GLUCOSE METER (BEAKER) (test code = 1538) 114 mg/dL 70-110 H : TESTED AT [address], [address]: Marketing Strategy Manager/Clinical Laboratory Technician ID = [id number] for JADYN SILVA Salicylate [id number] 14:22:00* Test Item Value Reference Range Interpretation Comments Salicylate Lvl (test code = 4024-6) <5.0 15-30 L LOY (test code = LOY) Therapeutic Range: 15.0-30.0 mg/dLToxic: >30.0 mg/dL Lethal: >70.0 mg/dL Marketing Strategy Manager ID - NTP Lab Interpretation (test code = 91092-4) [facility]normal [facility]AL[facility] [id number] 14:22:00* Test Item Value Reference Range Interpretation Comments SALICYLATE LEVEL (BEAKER) (test code = 764) < mg/dL 15.0-30.0 L Therapeutic Range: 15.0-30.0 mg/dLToxic: >30.0 mg/dL Lethal: >70.0 mg/dLOperator ID - BEWDorcd-4-sxrrggikpyi 2019 14:02:00* Test Item Value Reference Range Interpretation Comments A-1 Antitrypsin (test code = 1825-9) 130.80 mg/dL 90-200 Specimen slightly hemolyzed LOY (test code = LOY) Marketing Strategy Manager ID - NTP Lab Interpretation (test code = 97516-5) [facility] CenterJibzjgEFWDX-2-[id number] 14:02:00* Test Item Value Reference Range Interpretation Comments ALPHA-1 ANTITRYPSIN (BEAKER) (test code = 502) 130.80 mg/dL 90.00-2 00.00 Specimen slightly hemolyzed Marketing Strategy Manager ID - NTPPOCT-GLUCOSE [id number] 13:25:00* Test Item Value Reference Range Interpretation Comments POC-GLUCOSE METER (BEAKER) (test code = 1538) 124 mg/dL 70-110 H : TESTED AT [facility] [address] [facility], [address]: Marketing Strategy Manager/Clinical Laboratory Technician ID = [id number] for RICHELLE AGARWAL POCT-GLUCOSE [id number] 12:34:00* Test Item Value Reference Range Interpretation Comments POC-GLUCOSE METER (BEAKER) (test code = 1538) 127 mg/dL 70-110 H : TESTED AT [facility] [address] [facility] [place], [address]: Marketing Strategy Manager/Clinical Laboratory Technician ID = [id number] for JADYN SILVA TROPONIN [id number] 11:31:00* Test Item Value Reference Range Interpretation Comments TROPONIN I (BEAKER) (test code = 397) 0.02 ng/mL 0.00-0.03 Troponin I (TnI) levels must be interpreted in the context of the presenting sym ptoms and the clinical findings. Elevated TnI levels indicate myocardial damage, but are not specific for ischemic heart disease. Elevated TnI levels are seen i n patients with other cardiac conditions (including myocarditis and congestive h eart failure), and slight TnI elevations occur in patients with other conditions , including sepsis, renal failure, acidosis, acute neurological disease, and per sistent tachyarrhythmia.Marketing Strategy Manager ID - NTPBASIC METABOLIC [id number] 11:30:00* Test Item Value Reference Range Interpretation Comments SODIUM (BEAKER) (test code = 381) 133 meq/L 136-145 L POTASSIUM (BEAKER) (test code = 379) 4.2 meq/L 3.5-5.1 CHLORIDE (BEAKER) (test code = 382) 102 meq/L 98-107 CO2 (BEAKER) (test code = 355) 24 meq/L 22-29 BLOOD UREA NITROGEN (BEAKER) (test code = 354) 23 mg/dL 7-21 H CREATININE (BEAKER) (test code = 358) 1.41 mg/dL 0.57-1.25 H GLUCOSE RANDOM (BEAKER) (test code = 652) 180 mg/dL 70-105 H CALCIUM (BEAKER) (test code = 697) 7.8 mg/dL 8.4-10.2 L EGFR (BEAKER) (test code = 1092) 52 mL/min/1.73 sq m ESTIMATED GFR IS NOT ACCURATE CREATININE CLEARANCE IN PREDICTING GLOMERULAR FILTRATION RATE. ESTIMATED GFR IS NOT APPLICABLE FOR DIALYSIS PATIENTS. Marketing Strategy Manager ID - NTPBilirubin, [id number] 11:29:00* Test Item Value Reference Range Interpretation Comments Bilirubin, Direct (test code = 1968-7) 0.8 mg/dL 0.1-0.5 H LOY (test code = LOY) Marketing Strategy Manager ID - NTP Lab Interpretation (test code = 73595-0) [facility]normal [facility] CenterPO[facility] [id number] 11:29:00* Test Item Value Reference Range Interpretation Comments POC-GLUCOSE METER (BEAKER) (test code = 1538) 154 mg/dL 70-110 H : TESTED AT [address], [address]: Marketing Strategy Manager/Clinical Laboratory Technician ID = [id number] for JADYN SILVA BILIRUBIN, [id number] 11:29:00* Test Item Value Reference Range Interpretation Comments BILIRUBIN DIRECT (BEAKER) (test code = 706) 0.8 mg/dL 0.1-0.5 H Marketing Strategy Manager ID - NTPB-TYPE NATRIURETIC FACTOR (BNP)2019 11:28:00* Test Item Value Reference Range Interpretation Comments B-TYPE NATRIURETIC PEPTIDE (BEAKER) (test code = 700) 74 pg/mL 0-100 Marketing Strategy Manager ID - NTP2D Echo W/Doppler(CW/PW/Color)2019 11:15:53Ejection FractionSLEH ECHO HEARTLAB MKCKESSON CPACSInterface, External Ris In - 2019 11:16 AM CDTTransthoracic Echocardiography Report (TTE) Demographics Patient Name [facility], Date of Study 12/30/2019 FR CALLI Polo Gender Male Visit Deya nix [id number] Race Unknown Room Number 7A11 Number Date of 1965 Referring Ramón Physician MD Sandra Stokes Age 53 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 Amount - 3 mlHeight: 70 inches Weight: 100.24 kg (221 lbs) BSA: 2.18 m^2 BMI: 31.71kg/m^2HR: 105 bpm BP: 80/56 mmHg Summary 1. LV is small.LV function is hyperkinetic. LVEF is > 70% 2. Diastology: Indeterminate 3. Normal RV size and function 4. No significant valvular heart disease 5. Unable to estimate PASP Previous Study Compared to the previous study there was no significant change. Signature Findings Rhythm/BP Indeterminate rhythm during the exam. Left Ventricle LV endocardium i s adequately visualized with IV ultrasound enhancing agen t. The left ventricle is chamber size (by vol index) is s mall. LV septal thickness is difficult to assess. LV post erior wall thickness is difficult to asses . All of the L V segments are hyperkinetic . LVEF by Mcguire's method of disk assessment is increased (>70%) . LV diastolic function is indeterminate. Left Atrium LA is not well visualized. Right Ventricle The right ventricle is not well visualized. The right ventricular chamber size and systolic function are within normal limits based on available limited views. Right Atrium RA cavity size is probably normal based on available views . Aortic Valve AoV is not well visualized. Mitral Valve The mitral valve is not well visualized. Tricuspid Valve TV is not well vi sualized; likely normal based on available views. Unable to estimate peak systolic PA pressure; inadequate TR velocity signal. Pulmonic Valve PV is not well visua lized. Aorta Aortic root size (SInus of Valsalva diameter) is indeterminate (not well seen) . Pericardium A n echo lucent space is noted consistent with prominent pe ricardial fat pad. No significant pericardial effusion i s visualized. IVC/SVC/PA/PV/Pleural The estimated RA pressure by IVC dynamics 0-5mmHg . Left Ventricle LVEDV Mcguire's:57.6 ml LVESV Mcguire's:13.23 ml LVEF Mcguire's: 77 % LVEDVI: 26 ml/m^2 LVESVI: 6 ml/m^2 [facility] CenterAPTT[facility] 11:14:00* Test Item Value Reference Range Interpretation Comments PARTIAL THROMBOPLASTIN TIME (BEAKER) (test code = 760) 25.1 seconds 22.5-36.0 BLOOD GAS, [id number] 10:46:00* Test Item Value Reference Range Interpretation Comments PH ARTERIAL (BEAKER) (test code = 383) 7.37 7.35-7.45 PCO2 ARTERIAL (BEAKER) (test code = 384) 45 mmHg 35-45 PO2 ARTERIAL (BEAKER) (test code = 385) 61 mmHg 80-90 L O2 SATURATION ARTERIAL (BEAKER) (test code = 386) 89.1 % 96.0 -97.0 L HCO3 ARTERIAL (BEAKER) (test code = 388) 26 mmol/L 21-29 BASE EXCESS ARTERIAL (BEAKER) (test code = 387) 0.4 mmol/L -2.0-3 .0 PATIENT TEMPERATURE (BEAKER) (test code = 1818) 38.0 C FIO2 (BEAKER) (test code = 1819) 40.0 % HEMOGLOBIN AND [id number] 10:17:00* Test Item Value Reference Range Interpretation Comments HEMOGLOBIN (BEAKER) (test code = 410) 8.8 GM/DL 13.7-17.5 L HEMATOCRIT (BEAKER) (test code = 411) 28.2 % 40.1-51.0 L Marketing Strategy Manager ID - [id number] W/PLT COUNT & AUTO [id number] 09:52:00* Test Item Value Reference Range Interpretation Comments WHITE BLOOD CELL COUNT (BEAKER) (test code = 775) 11.5 K/ L 3.5- 10.5 H RED BLOOD CELL COUNT (BEAKER) (test code = 761) 3.40 M/ L 4.63-6 .08 L HEMOGLOBIN (BEAKER) (test code = 410) 10.0 GM/DL 13.7-17.5 L Patient had one unit LRBC's per bg#[id number] HEMATOCRIT (BEAKER) (test code = 411) 31.9 % 40.1-51.0 L MEAN CORPUSCULAR VOLUME (BEAKER) (test code = 753) 93.8 fL 79. 0-92.2 H MEAN CORPUSCULAR HEMOGLOBIN (BEAKER) (test code = 751) 29.4 pg 25.7-32.2 MEAN CORPUSCULAR HEMOGLOBIN CONC (BEAKER) (test code = 752) 31.3 GM/DL 32.3-36.5 L RED CELL DISTRIBUTION WIDTH (BEAKER) (test code = 412) 19.0 % 11.6-14.4 H PLATELET COUNT (BEAKER) (test code = 756) 106 K/CU MM 150-450 L MEAN PLATELET VOLUME (BEAKER) (test code = 754) 12.6 fL 9.4-12 .4 H NUCLEATED RED BLOOD CELLS (BEAKER) (test code = 413) 2 /100 WBC 0 -0 H (CELLAVISION MANUAL DIFF)2019 09:52:00* Test Item Value Reference Range Interpretation Comments NEUTROPHILS - REL (CELLAVISION)(BEAKER) (test code = 2816) 69 % LYMPHOCYTES - REL (CELLAVISION)(BEAKER) (test code = 2817) 16 % MONOCYTES - REL (CELLAVISION)(BEAKER) (test code = 2818) 6 % METAMYELOCYTES - REL (CELLAVISION)(BEAKER) (test code = 2821) 1 % 0-0 H MYELOCYTES - REL (CELLAVISION)(BEAKER) (test code = 2822) 4 % 0-0 H BANDS - REL (CELLAVISION)(BEAKER) (test code = 2826) 4 % 0 -10 NEUTROPHILS - ABS (CELLAVISION)(BEAKER) (test code = 2830) 7.94 K/ul 1.78-5.38 H LYMPHOCYTES - ABS (CELLAVISION)(BEAKER) (test code = 2831) 1.84 K/ul 1.32-3.57 MONOCYTES - ABS (CELLAVISION)(BEAKER) (test code = 2832) 0.69 K/uL 0.30-0.82 METAMYELOCYTES - ABS (CELLAVISION)(BEAKER) (test code = 2836 ) 0.12 K/uL 0.00-0.00 H MYELOCYTES-ABS (CELLAVISION)(BEAKER) (test code = 2837) 0.46 K/uL 0.00-0.00 H BANDS - ABS (CELLAVISION)(BEAKER) (test code = 2840) 0.46 K/uL 0 .00-0.80 TOTAL COUNTED (BEAKER) (test code = 1351) 100 MANUAL NRBC PER 100 CELLS (BEAKER) (test code = 1353) 1 /100 WBC 0-0 H CLUMPED PLATELETS (BEAKER) (test code = 436) Present SMUDGE CELLS (BEAKER) (test code = 1371) Present GIANT PLATELETS (BEAKER) (test code = 313) Present POLYCHROMATOPHILLIC RBCS(BEAKER) (test code = 478) 2+ moderate ANISOCYTOSIS (BEAKER) (test code = 961) 1+ few MICROCYTES (BEAKER) (test code = 965) 1+ few SCHISTOCYTES (BEAKER) (test code = 765) 1+ few HOLLI CELLS (BEAKER) (test code = 474) 1+ few BASOPHILIC STIPPLING (BEAKER) (test code = 473) Present ARTIFACT (CELLAVISION)(BEAKER) (test code = 3432) Present PLATELET CONCENTRATION (CELLAVISION)(BEAKER) (test code = 3438) Dec reased Marketing Strategy Manager ID - Geoffrey HuangPlease draw after transfusionUser comments: Slide comments : POCT-GLUCOSE [id number] 09:22:00* Test Item Value Reference Range Interpretation Comments POC-GLUCOSE METER (BEAKER) (test code = 1538) 151 mg/dL 70-110 H : [place]ED [place] [id number] [facility], [address]: Marketing Strategy Manager/Clinical Laboratory Technician ID = [id number] for JADYN SILVA [id number] 08:48:00* Test Item Value Reference Range Interpretation Comments MAGNESIUM (BEAKER) (test code = 627) 2.1 mg/dL 1.6-2.6 Specimen slightly hemolyzed Marketing Strategy Manager ID - NTPPOCT-GLUCOSE [id number] 08:23:00* Test Item Value Reference Range Interpretation Comments POC-GLUCOSE METER (BEAKER) (test code = 1538) 152 mg/dL 70-110 H : TESTED AT [address], [address]: Marketing Strategy Manager/Clinical Laboratory Technician ID = [id number] for JADYN SILVA POCT-GLUCOSE [id number] 07:47:00* Test Item Value Reference Range Interpretation Comments POC-GLUCOSE METER (BEAKER) (test code = 1538) 104 mg/dL 70-110 : TESTED AT [address], [address]: Marketing Strategy Manager/Clinical Laboratory Technician ID = [id number] for JADYN SLIVA URINALYSIS W/ REFLEX URINE [id number] 07:40:00* Test Item Value Reference Range Interpretation Comments COLOR (BEAKER) (test code = 470) Brown CLARITY (BEAKER) (test code = 469) Cloudy SPECIFIC GRAVITY UA (BEAKER) (test code = 468) 1.030 1.001-1 .035 PH UA (BEAKER) (test code = 467) 6.0 5.0-8.0 PROTEIN UA (BEAKER) (test code = 464) 200 mg/dL Negative A GLUCOSE UA (BEAKER) (test code = 365) Negative Negative KETONES UA (BEAKER) (test code = 371) Trace Negative A BILIRUBIN UA (BEAKER) (test code = 462) Positive Negative A BLOOD UA (BEAKER) (test code = 461) Large Negative A NITRITE UA (BEAKER) (test code = 465) Negative Negative LEUKOCYTE ESTERASE UA (BEAKER) (test code = 466) Large Negat vince A UROBILINOGEN UA (BEAKER) (test code = 463) 3.0 mg/dL 0.2-1.0 H RBC UA (BEAKER) (test code = 519) 1784 /HPF WBC UA (BEAKER) (test code = 520) 0 /HPF MUCUS (BEAKER) (test code = 1574) Few YEAST (BEAKER) (test code = 1585) Few SOURCE(BEAKER) (test code = 2795) Marketing Strategy Manager ID - techPOCT-GLUCOSE [id number] 07:15:00* Test Item Value Reference Range Interpretation Comments POC-GLUCOSE METER (BEAKER) (test code = 1538) 97 mg/dL 70-110 : TESTED AT [address], [address]: Marketing Strategy Manager/Clinical Laboratory Technician ID = [id number] for Liv Dugan [id number] 07:03:00* Test Item Value Reference Range Interpretation Comments FERRITIN (BEAKER) (test code = 361) 5112.25 ng/mL 5.00-275.00 H Marketing Strategy Manager ID - [id number] 05:24:00* Test Item Value Reference Range Interpretation Comments PROCALCITONIN (BEAKER) (test code = 3036) 1.81 ng/mL <0.05 H SEPSIS RISK (ng/mL)Low: 0.05-0.50Intermediate: 0.51-2.00High: > =2.01POCT-GLUCOSE [id number] 05:08:00* Test Item Value Reference Range Interpretation Comments POC-GLUCOSE METER (BEAKER) (test code = 1538) 102 mg/dL 70-110 : TESTED AT [address], [address]: Marketing Strategy Manager/Clinical Laboratory Technician ID = [id number] for Liv Dugan [id number] 04:51:00* Test Item Value Reference Range Interpretation Comments PHOSPHORUS (BEAKER) (test code = 604) 2.9 mg/dL 2.3-4.7 Marketing Strategy Manager ID - LUISA [id number] 04:51:00* Test Item Value Reference Range Interpretation Comments MAGNESIUM (BEAKER) (test code = 627) 2.1 mg/dL 1.6-2.6 Marketing Strategy Manager ID - PIAYA LHEPATIC FUNCTION [id number] 04:51:00* Test Item Value Reference Range Interpretation Comments TOTAL PROTEIN (BEAKER) (test code = 770) 6.2 gm/dL 6.0-8.3 ALBUMIN (BEAKER) (test code = 1145) 2.8 g/dL 3.5-5.0 L BILIRUBIN TOTAL (BEAKER) (test code = 377) 1.1 mg/dL 0.2-1.2 BILIRUBIN DIRECT (BEAKER) (test code = 706) 0.9 mg/dL 0.1-0.5 H ALKALINE PHOSPHATASE (BEAKER) (test code = 346) 721 U/L 40-150 H AST (SGOT) (BEAKER) (test code = 353) 152 U/L 5-34 H ALT (SGPT) (BEAKER) (test code = 347) 276 U/L 6-55 H Marketing Strategy Manager ID - PIAYA LCOMPREHENSIVE METABOLIC [id number] 04:51:00* Test Item Value Reference Range Interpretation Comments TOTAL PROTEIN (BEAKER) (test code = 770) 6.2 gm/dL 6.0-8.3 ALBUMIN (BEAKER) (test code = 1145) 2.8 g/dL 3.5-5.0 L ALKALINE PHOSPHATASE (BEAKER) (test code = 346) 721 U/L 40-150 H BILIRUBIN TOTAL (BEAKER) (test code = 377) 1.1 mg/dL 0.2-1.2 SODIUM (BEAKER) (test code = 381) 131 meq/L 136-145 L POTASSIUM (BEAKER) (test code = 379) 4.4 meq/L 3.5-5.1 CHLORIDE (BEAKER) (test code = 382) 102 meq/L 98-107 CO2 (BEAKER) (test code = 355) 23 meq/L 22-29 BLOOD UREA NITROGEN (BEAKER) (test code = 354) 21 mg/dL 7-21 CREATININE (BEAKER) (test code = 358) 1.31 mg/dL 0.57-1.25 H GLUCOSE RANDOM (BEAKER) (test code = 652) 153 mg/dL 70-105 H CALCIUM (BEAKER) (test code = 697) 8.1 mg/dL 8.4-10.2 L AST (SGOT) (BEAKER) (test code = 353) 152 U/L 5-34 H ALT (SGPT) (BEAKER) (test code = 347) 276 U/L 6-55 H EGFR (BEAKER) (test code = 1092) 57 mL/min/1.73 sq m ESTIMATED GFR IS NOT ACCURATE CREATININE CLEARANCE IN PREDICTING GLOMERULAR FILTRATION RATE. ESTIMATED GFR IS NOT APPLICABLE FOR DIALYSIS PATIENTS. Marketing Strategy Manager ID - PIAYA LLACTATE DEHYDROGENASE (LDH)2019 04:51:00* Test Item Value Reference Range Interpretation Comments LACTATE DEHYDROGENASE (BEAKER) (test code = 635) 334 U/L 125-2 20 H Marketing Strategy Manager ID - PIAYA LC-REACTIVE [id number] 04:51:00* Test Item Value Reference Range Interpretation Comments C-REACTIVE PROTEIN (BEAKER) (test code = 676) 3.22 mg/dL 0.00-0.5 0 H Marketing Strategy Manager ID - PIAYA LBLOOD GAS, [id number] 04:13:00* Test Item Value Reference Range Interpretation Comments PH ARTERIAL (BEAKER) (test code = 383) 7.35 7.35-7.45 PCO2 ARTERIAL (BEAKER) (test code = 384) 49 mmHg 35-45 H PO2 ARTERIAL (BEAKER) (test code = 385) 75 mmHg 80-90 L O2 SATURATION ARTERIAL (BEAKER) (test code = 386) 94.3 % 96.0 -97.0 L HCO3 ARTERIAL (BEAKER) (test code = 388) 27 mmol/L 21-29 BASE EXCESS ARTERIAL (BEAKER) (test code = 387) 0.7 mmol/L -2.0-3 .0 PATIENT TEMPERATURE (BEAKER) (test code = 1818) 37.0 C FIO2 (BEAKER) (test code = 1819) 40.0 % [id number] 04:07:00* Test Item Value Reference Range Interpretation Comments PARTIAL THROMBOPLASTIN TIME (BEAKER) (test code = 760) 36.9 seconds 22.5-36.0 H LACTIC ACID, [id number] 04:06:00* Test Item Value Reference Range Interpretation Comments LACTATE BLOOD ARTERIAL (2) (BEAKER) (test code = 2874) 1.1 mmol/L 0.5-2.2 Marketing Strategy Manager ID - PIAYA LPOCT-GLUCOSE [id number] 03:09:00* Test Item Value Reference Range Interpretation Comments POC-GLUCOSE METER (BEAKER) (test code = 1538) 129 mg/dL 70-110 H : TESTED AT [place] [id number] [facility] [place], [address]: Marketing Strategy Manager/Clinical Laboratory Technician ID = [id number] for Liv Dugan POCT-GLUCOSE [id number] 01:43:00* Test Item Value Reference Range Interpretation Comments POC-GLUCOSE METER (BEAKER) (test code = 1538) 134 mg/dL 70-110 H : TESTED AT [address], [address]: Marketing Strategy Manager/Clinical Laboratory Technician ID = [id number] for Liv Dugan POCT-GLUCOSE [id number] 01:39:00* Test Item Value Reference Range Interpretation Comments POC-GLUCOSE METER (BEAKER) (test code = 1538) 133 mg/dL 70-110 H : TESTED AT [address], [address]: Marketing Strategy Manager/Clinical Laboratory Technician ID = [id number] for Liv Dugan COMPREHENSIVE METABOLIC [id number] 00:27:00* Test Item Value Reference Range Interpretation Comments TOTAL PROTEIN (BEAKER) (test code = 770) 6.0 gm/dL 6.0-8.3 ALBUMIN (BEAKER) (test code = 1145) 2.7 g/dL 3.5-5.0 L ALKALINE PHOSPHATASE (BEAKER) (test code = 346) 707 U/L 40-150 H BILIRUBIN TOTAL (BEAKER) (test code = 377) 1.1 mg/dL 0.2-1.2 SODIUM (BEAKER) (test code = 381) 134 meq/L 136-145 L POTASSIUM (BEAKER) (test code = 379) 4.1 meq/L 3.5-5.1 CHLORIDE (BEAKER) (test code = 382) 104 meq/L 98-107 CO2 (BEAKER) (test code = 355) 23 meq/L 22-29 BLOOD UREA NITROGEN (BEAKER) (test code = 354) 22 mg/dL 7-21 H CREATININE (BEAKER) (test code = 358) 1.23 mg/dL 0.57-1.25 GLUCOSE RANDOM (BEAKER) (test code = 652) 111 mg/dL 70-105 H CALCIUM (BEAKER) (test code = 697) 7.9 mg/dL 8.4-10.2 L AST (SGOT) (BEAKER) (test code = 353) 165 U/L 5-34 H ALT (SGPT) (BEAKER) (test code = 347) 275 U/L 6-55 H EGFR (BEAKER) (test code = 1092) 61 mL/min/1.73 sq m ESTIMATED GFR IS NOT ACCURATE CREATININE CLEARANCE IN PREDICTING GLOMERULAR FILTRATION RATE. ESTIMATED GFR IS NOT APPLICABLE FOR DIALYSIS PATIENTS. Marketing Strategy Manager ID - LUIAS [id number] 00:27:00* Test Item Value Reference Range Interpretation Comments HAPTOGLOBIN (BEAKER) (test code = 366) 165 mg/dL 14-258 Marketing Strategy Manager ID - LUISA LPOCT-GLUCOSE [id number] 00:11:00* Test Item Value Reference Range Interpretation Comments POC-GLUCOSE METER (DASHAWN) (test code = 1538) 105 mg/dL 70-110 : TESTED AT [address], [address]: Marketing Strategy Manager/Clinical Laboratory Technician ID = [id number] for Liv Dugan POCT-GLUCOSE [id number] 00:07:00* Test Item Value Reference Range Interpretation Comments POC-GLUCOSE METER (DASHAWN) (test code = 1538) 91 mg/dL 70-110 : TESTED AT [place] [id number] [facility] [place], [address]: Marketing Strategy Manager/Clinical Laboratory Technician ID = [id number] for Liv Dugan [id number] 00:01:00* Test Item Value Reference Range Interpretation Comments D-Dimer, Quant (test code = 95152-7) 1.37 <0.50 MG/L FEU H LOY (test code = LOY) Intended Use: The D-Dimer As say can be used to aid in the diagnosis of Deep Vein Thrombosis (DVT) and Pulmonary Embolism Disease (PED).In patients with low pre-test probability, various studies concerning STA Liatest D-dimer test have reported that with a cutoff value of 0.50 MG/L FEU, the Negative Predictive Value (NPV) regarding the exclusion of thrombosis is within 95-100% range. Lab Interpretation (test code = 86123-1) [id number] 00:01:00* Test Item Value Reference Range Interpretation Comments D-DIMER QUANTITATIVE (BEAKER) (test code = 671) 1.37 MG/L FEU <0.50 H Intended Use: The D-Dimer Assay can be used to aid in the diagnosis of Deep Vein Thrombosis (DVT) and Pulmonary Embolism Disease (PED).In patients with low pre- test probability, various studies concerning STA Liatest D-dimer test have repor dio that with a cutoff value of 0.50 MG/L FEU, the Negative Predictive Value (STOCK FEEDER V) regarding the exclusion of thrombosis is within 95-100% range.Fibrinogen 2019-12-30 23:59:00* Test Item Value Reference Range Interpretation Comments Fibrinogen (test code = 3255-7) 553 mg/dl 225-434 H Lab Interpretation (test code = 68322-0) Abnormal [facility] Center[facility]/[id number] 23:59:00* Test Item Value Reference Range Interpretation Comments PROTIME (BEAKER) (test code = 759) 14.2 seconds 11.9-14.2 INR (BEAKER) (test code = 370) 1.1 <=5.9 Effective 11/04/2018: PT Reference Range ChangeNew: 11.9-14.2 Previous: 11.7-14. 7RECOMMENDED COUMADIN/WARFARIN INR THERAPY RANGESSTANDARD DOSE: 2.0-3.0 Include s: PROPHYLAXIS for venous thrombosis, systemic embolization; TREATMENT for venou s thrombosis and/or pulmonary embolus.HIGH RISK: Target INR is 2.5-3.5 for patie nts wiht mechanical heart valves.[id number] 23:59:00* Test Item Value Reference Range Interpretation Comments FIBRINOGEN LEVEL (BEAKER) (test code = 658) 553 mg/dl 225-434 H BASIC METABOLIC [id number] 21:39:00* Test Item Value Reference Range Interpretation Comments SODIUM (BEAKER) (test code = 381) 134 meq/L 136-145 L POTASSIUM (BEAKER) (test code = 379) 3.5 meq/L 3.5-5.1 CHLORIDE (BEAKER) (test code = 382) 106 meq/L 98-107 CO2 (BEAKER) (test code = 355) 22 meq/L 22-29 BLOOD UREA NITROGEN (BEAKER) (test code = 354) 22 mg/dL 7-21 H CREATININE (BEAKER) (test code = 358) 1.23 mg/dL 0.57-1.25 GLUCOSE RANDOM (BEAKER) (test code = 652) 122 mg/dL 70-105 H CALCIUM (BEAKER) (test code = 697) 7.7 mg/dL 8.4-10.2 L EGFR (BEAKER) (test code = 1092) 61 mL/min/1.73 sq m ESTIMATED GFR IS NOT ACCURATE CREATININE CLEARANCE IN PREDICTING GLOMERULAR FILTRATION RATE. ESTIMATED GFR IS NOT APPLICABLE FOR DIALYSIS PATIENTS. Marketing Strategy Manager ID - DBHEMOGLOBIN AND [id number] 21:35:00* Test Item Value Reference Range Interpretation Comments HEMOGLOBIN (BEAKER) (test code = 410) 7.0 GM/DL 13.7-17.5 L HEMATOCRIT (BEAKER) (test code = 411) 22.6 % 40.1-51.0 L Marketing Strategy Manager ID - [id number] 21:33:00* Test Item Value Reference Range Interpretation Comments MAGNESIUM (BEAKER) (test code = 627) 1.9 mg/dL 1.6-2.6 Marketing Strategy Manager ID - DBPOCT-GLUCOSE [id number] 21:12:00* Test Item Value Reference Range Interpretation Comments POC-GLUCOSE METER (BEAKER) (test code = 1538) 113 mg/dL 70-110 H : TESTED AT [facility] [address] [facility] [place], [address]: Marketing Strategy Manager/Clinical Laboratory Technician ID = [id number] for Liv Dugan BLOOD GAS, [id number] 21:07:00* Test Item Value Reference Range Interpretation Comments PH ARTERIAL (BEAKER) (test code = 383) 7.35 7.35-7.45 PCO2 ARTERIAL (BEAKER) (test code = 384) 49 mmHg 35-45 H PO2 ARTERIAL (BEAKER) (test code = 385) 71 mmHg 80-90 L O2 SATURATION ARTERIAL (BEAKER) (test code = 386) 93.8 % 96.0 -97.0 L HCO3 ARTERIAL (BEAKER) (test code = 388) 27 mmol/L 21-29 BASE EXCESS ARTERIAL (BEAKER) (test code = 387) 0.6 mmol/L -2.0-3 .0 PATIENT TEMPERATURE (BEAKER) (test code = 1818) 36.5 C FIO2 (BEAKER) (test code = 1819) 40.0 % POCT-GLUCOSE [id number] 19:27:00* Test Item Value Reference Range Interpretation Comments POC-GLUCOSE METER (BEAKER) (test code = 1538) 123 mg/dL 70-110 H : TESTED AT [facility] [address] [facility] [place], [address]: Marketing Strategy Manager/Clinical Laboratory Technician ID = [id number] for MARCIE VELASQUEZ POCT-GLUCOSE [id number] 18:26:00* Test Item Value Reference Range Interpretation Comments POC-GLUCOSE METER (BEAKER) (test code = 1538) 133 mg/dL 70-110 H : TESTED AT [facility] [address] [facility] [place], [address]: Marketing Strategy Manager/Clinical Laboratory Technician ID = [id number] for MARCIE VELASQUEZ [id number] 17:37:00* Test Item Value Reference Range Interpretation Comments LIPASE (BEAKER) (test code = 749) 41 U/L 8-78 Marketing Strategy Manager ID - BSOperator ID - DBBASIC METABOLIC [id number] 17:19:00* Test Item Value Reference Range Interpretation Comments SODIUM (BEAKER) (test code = 381) 136 meq/L 136-145 POTASSIUM (BEAKER) (test code = 379) 3.7 meq/L 3.5-5.1 CHLORIDE (BEAKER) (test code = 382) 107 meq/L 98-107 CO2 (BEAKER) (test code = 355) 23 meq/L 22-29 BLOOD UREA NITROGEN (BEAKER) (test code = 354) 22 mg/dL 7-21 H CREATININE (BEAKER) (test code = 358) 1.20 mg/dL 0.57-1.25 GLUCOSE RANDOM (BEAKER) (test code = 652) 134 mg/dL 70-105 H CALCIUM (BEAKER) (test code = 697) 7.7 mg/dL 8.4-10.2 L EGFR (BEAKER) (test code = 1092) 63 mL/min/1.73 sq m ESTIMATED GFR IS NOT ACCURATE CREATININE CLEARANCE IN PREDICTING GLOMERULAR FILTRATION RATE. ESTIMATED GFR IS NOT APPLICABLE FOR DIALYSIS PATIENTS. Marketing Strategy Manager ID - [id number] 17:17:00* Test Item Value Reference Range Interpretation Comments PHOSPHORUS (BEAKER) (test code = 604) 2.9 mg/dL 2.3-4.7 Marketing Strategy Manager ID - BSLACTIC ACID, [id number] 16:59:00* Test Item Value Reference Range Interpretation Comments LACTATE BLOOD ARTERIAL (2) (BEAKER) (test code = 2874) 1.3 mmol/L 0.5-2.2 Marketing Strategy Manager ID - BSPOCT-GLUCOSE [id number] 16:57:00* Test Item Value Reference Range Interpretation Comments POC-GLUCOSE METER (BEAKER) (test code = 1538) 141 mg/dL 70-110 H : TESTED AT [facility] [address] [facility] [place], [address]: Marketing Strategy Manager/Clinical Laboratory Technician ID = [id number] for MARCIE VELASQUEZ HEMOGLOBIN AND [id number] 16:53:00* Test Item Value Reference Range Interpretation Comments HEMOGLOBIN (BEAKER) (test code = 410) 7.8 GM/DL 13.7-17.5 L HEMATOCRIT (BEAKER) (test code = 411) 26.2 % 40.1-51.0 L Marketing Strategy Manager ID - [id number] GAS, [id number] 16:34:00* Test Item Value Reference Range Interpretation Comments PH ARTERIAL (BEAKER) (test code = 383) 7.37 7.35-7.45 PCO2 ARTERIAL (BEAKER) (test code = 384) 44 mmHg 35-45 PO2 ARTERIAL (BEAKER) (test code = 385) 72 mmHg 80-90 L O2 SATURATION ARTERIAL (BEAKER) (test code = 386) 94.6 % 96.0 -97.0 L HCO3 ARTERIAL (BEAKER) (test code = 388) 25 mmol/L 21-29 BASE EXCESS ARTERIAL (BEAKER) (test code = 387) -0.1 mmol/L -2.0-3 .0 PATIENT TEMPERATURE (BEAKER) (test code = 1818) 36.5 C FIO2 (BEAKER) (test code = 1819) 40.0 % BLOOD [id number] 16:00:00* Test Item Value Reference Range Interpretation Comments CULTURE (BEAKER) (test code = 1095) No growth in 5 days BLOOD [id number] 16:00:00* Test Item Value Reference Range Interpretation Comments CULTURE (BEAKER) (test code = 1095) No growth in 5 days POCT-GLUCOSE [id number] 13:17:00* Test Item Value Reference Range Interpretation Comments POC-GLUCOSE METER (BEAKER) (test code = 1538) 158 mg/dL 70-110 H : TESTED AT [facility] [address] [facility] [place], [address]: Marketing Strategy Manager/Clinical Laboratory Technician ID = [id number] for MARCIE VELASQUEZ POCT-GLUCOSE [id number] 11:52:00* Test Item Value Reference Range Interpretation Comments POC-GLUCOSE METER (BEAKER) (test code = 1538) 195 mg/dL 70-110 H : TESTED AT [facility] [address] [facility] [place], [address]: Marketing Strategy Manager/Clinical Laboratory Technician ID = [id number] for MARCIE VELASQUEZ CBC W/PLT COUNT & AUTO [id number] 11:34:00* Test Item Value Reference Range Interpretation Comments WHITE BLOOD CELL COUNT (BEAKER) (test code = 775) 12.5 K/ L 3.5- 10.5 H RED BLOOD CELL COUNT (BEAKER) (test code = 761) 3.23 M/ L 4.63-6 .08 L HEMOGLOBIN (BEAKER) (test code = 410) 9.2 GM/DL 13.7-17.5 L HEMATOCRIT (BEAKER) (test code = 411) 29.6 % 40.1-51.0 L MEAN CORPUSCULAR VOLUME (BEAKER) (test code = 753) 91.6 fL 79. 0-92.2 MEAN CORPUSCULAR HEMOGLOBIN (BEAKER) (test code = 751) 28.5 pg 25.7-32.2 MEAN CORPUSCULAR HEMOGLOBIN CONC (BEAKER) (test code = 752) 31.1 GM/DL 32.3-36.5 L RED CELL DISTRIBUTION WIDTH (BEAKER) (test code = 412) 19.1 % 11.6-14.4 H PLATELET COUNT (BEAKER) (test code = 756) 71 K/CU MM 150-450 L MEAN PLATELET VOLUME (BEAKER) (test code = 754) 11.9 fL 9.4-12 .4 NUCLEATED RED BLOOD CELLS (BEAKER) (test code = 413) 1 /100 WBC 0 -0 H (CELLAVISION MANUAL DIFF)2019-12-30 11:34:00* Test Item Value Reference Range Interpretation Comments NEUTROPHILS - REL (CELLAVISION)(BEAKER) (test code = 2816) 83 % LYMPHOCYTES - REL (CELLAVISION)(BEAKER) (test code = 2817) 10 % MONOCYTES - REL (CELLAVISION)(BEAKER) (test code = 2818) 2 % BASOPHILS - REL (CELLAVISION)(BEAKER) (test code = 2820) 1 % BANDS - REL (CELLAVISION)(BEAKER) (test code = 2826) 4 % 0 -10 NEUTROPHILS - ABS (CELLAVISION)(BEAKER) (test code = 2830) 10.38 K/ul 1.78-5.38 H LYMPHOCYTES - ABS (CELLAVISION)(BEAKER) (test code = 2831) 1.25 K/ul 1.32-3.57 L MONOCYTES - ABS (CELLAVISION)(BEAKER) (test code = 2832) 0.25 K/uL 0.30-0.82 L BASOPHILS - ABS (CELLAVISION)(BEAKER) (test code = 2835) 0.13 K/uL 0.01-0.08 H BANDS - ABS (CELLAVISION)(BEAKER) (test code = 2840) 0.50 K/uL 0 .00-0.80 TOTAL COUNTED (BEAKER) (test code = 1351) 100 WBC MORPHOLOGY (BEAKER) (test code = 487) Normal PLT MORPHOLOGY (BEAKER) (test code = 486) Normal POLYCHROMATOPHILLIC RBCS(BEAKER) (test code = 478) 2+ moderate HYPOCHROMIA (BEAKER) (test code = 963) 1+ few ANISOCYTOSIS (BEAKER) (test code = 961) 1+ few POIKILOCYTES (BEAKER) (test code = 966) 1+ few HOLLI CELLS (BEAKER) (test code = 474) 1+ few BASOPHILIC STIPPLING (BEAKER) (test code = 473) Present ARTIFACT (CELLAVISION)(BEAKER) (test code = 3432) Present HELMET CELLS (CELLAVISION)(BEAKER) (test code = 3434) 1+ few PLATELET CONCENTRATION (CELLAVISION)(BEAKER) (test code = 3438) Dec reased Marketing Strategy Manager ID - Yasmine Mccarthy comments: Slide comments: BASIC METABOLIC PANEL 2019-12-30 10:56:00* Test Item Value Reference Range Interpretation Comments SODIUM (BEAKER) (test code = 381) 133 meq/L 136-145 L POTASSIUM (BEAKER) (test code = 379) 3.8 meq/L 3.5-5.1 Specimen slightly hemolyzed CHLORIDE (BEAKER) (test code = 382) 104 meq/L 98-107 CO2 (BEAKER) (test code = 355) 24 meq/L 22-29 BLOOD UREA NITROGEN (BEAKER) (test code = 354) 26 mg/dL 7-21 H CREATININE (BEAKER) (test code = 358) 1.30 mg/dL 0.57-1.25 H Specimen slightly hemolyzed GLUCOSE RANDOM (BEAKER) (test code = 652) 214 mg/dL 70-105 H CALCIUM (BEAKER) (test code = 697) 7.7 mg/dL 8.4-10.2 L EGFR (BEAKER) (test code = 1092) 58 mL/min/1.73 sq m ESTIMATED GFR IS NOT ACCURATE CREATININE CLEARANCE IN PREDICTING GLOMERULAR FILTRATION RATE. ESTIMATED GFR IS NOT APPLICABLE FOR DIALYSIS PATIENTS. Marketing Strategy Manager ID - LUISA KELLOGG/S, ABDOMINAL, [id number] 10:50:00Abdomen limited area? Add comment if clarification is needed.->LiverReason for exam:->increasing lftsFINAL REPORT TECHNIQUE: Grayscale ultrasound of the right abdomen. INDICATION: increasing lfts. COMPARISON: Ultrasound from 12/22/2019. FINDINGS: MIDLINE VASCULATURE: The visualized inferior vena cava is unremarkable. The maximum visualized aortic diameter is 2.1 cm. LIVER: Smooth liver contour. No focal lesions. The main portal vein is patent and measures 0.7 cm in diameter. BILIARY:Gallbladder: Stones layering the gallbladder neck. No gallbladder wall thickening, pericholecystic fluid, or distention. Negative sonographic Ramírez sign.Common bile duct measures 0.7 cm, mildly dilated. No intrahepatic biliary ductal dilatation. PANCREAS: Incompletely visualized due to overlying bowel gas. The partially visualized pancreatic neck, body, and tail are normal. PERITONEUM: No free fluid. RIGHT KIDNEY: Normal in size. No hydronephrosis. No sonographically evident solid mass lesion. IMPRESSION: 1.The common bile duct is newly dilated at 0.7 cm in diameter. Further evaluation with MRCP is recommended to exclude choledocholithiasis. 2.The liver is slightly hyperechoic, concerning for fatty infiltration of the liver. This can be further evaluated on MRCP as well. 3.Cholelithiasis without acute cholecystitis. Signed: Harpreet Thompson MDReport Verified Date/Time: 12/30/2019 10:50:55 Reading Location: [address] Radiology Reading Room -GLUCOSE [id number] 10:39:00 * Test Item Value Reference Range Interpretation Comments POC-GLUCOSE METER (BEAKER) (test code = 1538) 203 mg/dL 70-110 H : TESTED AT [address], [address]: Marketing Strategy Manager/Clinical Laboratory Technician ID = [id number] for MARCIE VELASQUEZ BLOOD GAS, [id number] 10:34:00* Test Item Value Reference Range Interpretation Comments PH ARTERIAL (BEAKER) (test code = 383) 7.38 7.35-7.45 PCO2 ARTERIAL (BEAKER) (test code = 384) 43 mmHg 35-45 PO2 ARTERIAL (BEAKER) (test code = 385) 85 mmHg 80-90 O2 SATURATION ARTERIAL (BEAKER) (test code = 386) 96.5 % 96.0 -97.0 HCO3 ARTERIAL (BEAKER) (test code = 388) 25 mmol/L 21-29 BASE EXCESS ARTERIAL (BEAKER) (test code = 387) 0.1 mmol/L -2.0-3 .0 PATIENT TEMPERATURE (BEAKER) (test code = 1818) 36.5 C FIO2 (BEAKER) (test code = 1819) 40.0 % POCT-GLUCOSE [id number] 09:15:00* Test Item Value Reference Range Interpretation Comments POC-GLUCOSE METER (BEAKER) (test code = 1538) 160 mg/dL 70-110 H : TESTED AT [place] [id number] [facility] [place], [address]: Marketing Strategy Manager/Clinical Laboratory Technician ID = [id number] for KEN TREADWELL [id number] 08:16:00* Test Item Value Reference Range Interpretation Comments PARTIAL THROMBOPLASTIN TIME (BEAKER) (test code = 760) 83.3 seconds 22.5-36.0 H [id number] 08:15:00* Test Item Value Reference Range Interpretation Comments MAGNESIUM (BEAKER) (test code = 627) 1.9 mg/dL 1.6-2.6 Marketing Strategy Manager ID - LUISA LPOCT-GLUCOSE [id number] 07:56:00* Test Item Value Reference Range Interpretation Comments POC-GLUCOSE METER (BEAKER) (test code = 1538) 169 mg/dL 70-110 H : TESTED AT [address], [address]: Marketing Strategy Manager/Clinical Laboratory Technician ID = [id number] for MARCIE VELASQUEZ POCT-GLUCOSE [id number] 07:03:00* Test Item Value Reference Range Interpretation Comments POC-GLUCOSE METER (BEAKER) (test code = 1538) 93 mg/dL 70-110 : TESTED AT [address], [address]: Marketing Strategy Manager/Clinical Laboratory Technician ID = [id number] for CARMINE FRANKS POCT-GLUCOSE [id number] 06:53:00* Test Item Value Reference Range Interpretation Comments POC-GLUCOSE METER (BEAKER) (test code = 1538) 96 mg/dL 70-110 : TESTED AT [address], [address]: Marketing Strategy Manager/Clinical Laboratory Technician ID = [id number] for CARMINE FRANKS POCT-GLUCOSE [id number] 05:41:00* Test Item Value Reference Range Interpretation Comments POC-GLUCOSE METER (BEAKER) (test code = 1538) 125 mg/dL 70-110 H : TESTED AT [address], [address]: Marketing Strategy Manager/Clinical Laboratory Technician ID = [id number] for CARMINE FRANKS POCT-GLUCOSE [id number] 04:34:00* Test Item Value Reference Range Interpretation Comments POC-GLUCOSE METER (BEAKER) (test code = 1538) 147 mg/dL 70-110 H : TESTED AT [address], [address]: Marketing Strategy Manager/Clinical Laboratory Technician ID = [id number] for MARINA EMMA COMPREHENSIVE METABOLIC [id number] 03:31:00* Test Item Value Reference Range Interpretation Comments TOTAL PROTEIN (BEAKER) (test code = 770) 6.3 gm/dL 6.0-8.3 ALBUMIN (BEAKER) (test code = 1145) 2.8 g/dL 3.5-5.0 L ALKALINE PHOSPHATASE (BEAKER) (test code = 346) 749 U/L 40-150 H BILIRUBIN TOTAL (BEAKER) (test code = 377) 1.1 mg/dL 0.2-1.2 SODIUM (BEAKER) (test code = 381) 132 meq/L 136-145 L POTASSIUM (BEAKER) (test code = 379) 3.9 meq/L 3.5-5.1 CHLORIDE (BEAKER) (test code = 382) 102 meq/L 98-107 CO2 (BEAKER) (test code = 355) 25 meq/L 22-29 BLOOD UREA NITROGEN (BEAKER) (test code = 354) 26 mg/dL 7-21 H CREATININE (BEAKER) (test code = 358) 1.43 mg/dL 0.57-1.25 H GLUCOSE RANDOM (BEAKER) (test code = 652) 230 mg/dL 70-105 H CALCIUM (BEAKER) (test code = 697) 7.8 mg/dL 8.4-10.2 L AST (SGOT) (BEAKER) (test code = 353) 179 U/L 5-34 H ALT (SGPT) (BEAKER) (test code = 347) 278 U/L 6-55 H EGFR (BEAKER) (test code = 1092) 52 mL/min/1.73 sq m ESTIMATED GFR IS NOT ACCURATE CREATININE CLEARANCE IN PREDICTING GLOMERULAR FILTRATION RATE. ESTIMATED GFR IS NOT APPLICABLE FOR DIALYSIS PATIENTS. Marketing Strategy Manager ID - PIAYA LSARS-CoV2/RT-PCR (Symptomatic ONLY)2019-12-30 03:21:00* Test Item Value Reference Range Interpretation Comments SARS-COV2/RT-PCR (test code = 64407-0) Negative N ot Detected, Negative, See external report for linked test SARS-COV-2 PERFORMING LAB (test code = 61543-2) [facility] GRANADO (test code = LOY) Negative result for this vilma t determines that SARS-CoV-2 RNA was not present in the specimen above the Limit of Detection (LOD). However, Negative results do not preclude SARS-CoV-2 infection and should not be used as the sole basis for treatment or patient management decisions. Negative results must be combined with clinical observations, patient history, and epidemiological information. A false negative result may occur if a specimen is improperly collected, transported or handled. A false negative result should be considered if patient's recent exposures or clinical presentation indicate that COVID-19 (SARS-CoV-2) is likely and diagnostic tests for other causes of illness are negative. Re-testing should be considered in cases of suspected false negatives. The limit of detection for this assay is 800 copies/mL. This SARS CoV-2 test is a real-time RT-PCR test intended for the qualitative detection of nucleic acid from SARS-CoV-2 in a nasopharyngeal swab specimen collected from individuals suspected of COVID-19 by their healthcare provider. This test has not been Food and Drug Administration (FDA) cleared or approved. This is a modified version of an approved Emergency Use Authorization (EUA) and is in the process of review by the FDA. Once authorized by the FDA, the issued EUA will be effective until the declaration that circumstances exist justifying the authorization of the emergency use of in vitro diagnostic tests for detection and/or diagnosis of COVID-19 is terminated under Section 564(b)(2) of the Act or the EUA is revoked under Section 564(g) of the Act. Fact Sheet for Healthcare Providers:https://www.Velocomp/sites/default/files/product/documents/Fact_Shee x_VX_Sioimgqjf_Focc_UJVA-BqE-4.pdf Fact Sheet for Healthcare Patients:https://www.Velocomp/sites/default/files/pro duct/documents/Npfj_Rvqfn_Pdptecfh_Yxzw_GPBQ-ZuK-0.pdf Performing Laboratory:[facility] [address] [facility])2019-12-30 03:21:00* Test Item Value Reference Range Interpretation Comments SARS-COV2/RT-PCR (test code = 7114011) Negative N ot Detected, Negative, See external report for linked test SARS-COV-2 PERFORMING LAB (test code = 2098603) [facility] Negative result for this test determines that SARS-CoV-2 RNA was not present in the specimen above the Limit of Detection (LOD). However, Negative results do n ot preclude SARS-CoV-2 infection and should not be used as the sole basis for tr eatment or patient management decisions. Negative results must be combined with clinical observations, patient history, and epidemiological information. A false negative result may occur if a specimen is improperly collected, transported or handled. A false negative result should be considered if patient's recent expo sures or clinical presentation indicate that COVID-19 (SARS-CoV-2) is likely and diagnostic tests for other causes of illness are negative. Re-testing should b e considered in cases of suspected false negatives.The limit of detection for th is assay is 800 copies/mL.This SARS CoV-2 test is a real-time RT-PCR test intend ed for the qualitative detection of nucleic acid from SARS-CoV-2 in a nasopharyn geal swab specimen collected from individuals suspected of COVID-19 by their [facility] provider.This test has not been Food and Drug Administration (FDA) clear ed or approved. This is a modified version of an approved Emergency Use Authori zation (EUA) and is in the process of review by the FDA. Once authorized by [facility] FDA, the issued EUA will be effective until the declaration that circumstances exist justifying the authorization of the emergency use of in vitro diagnostic tests for detection and/or diagnosis of COVID-19 is terminated under Section 564 (b)(2) of the Act or the EUA is revoked under Section 564(g) of the Act.Fact She et for Healthcare Providers:https://www.Koozoo.Desi Hits/sites/default/files/product/d ocuments/Zoxo_Xszme_RL_Yxxzydocf_Uebk_PJEC-PvU-8.pdfFact Sheet for Healthcare Pa carroll:https://www.Koozoo.Desi Hits/sites/default/files/product/documents/Fact_Sheet_P ehgnuam_Ohyd_AQMQ-AxB-8.pdfPerforming Laboratory:[facility] [address], [place] [id number] 03:03:00* Test Item Value Reference Range Interpretation Comments PHOSPHORUS (BEAKER) (test code = 604) 3.5 mg/dL 2.3-4.7 Marketing Strategy Manager ID - PIAYA [id number] 03:03:00* Test Item Value Reference Range Interpretation Comments MAGNESIUM (BEAKER) (test code = 627) 2.0 mg/dL 1.6-2.6 Marketing Strategy Manager ID - PIAYA LLACTIC ACID, [id number] 02:54:00* Test Item Value Reference Range Interpretation Comments LACTATE BLOOD ARTERIAL (2) (BEAKER) (test code = 2874) 0.7 mmol/L 0.5-2.2 Marketing Strategy Manager ID - PIAYA LBLOOD GAS, [id number] 02:42:00* Test Item Value Reference Range Interpretation Comments PH ARTERIAL (BEAKER) (test code = 383) 7.35 7.35-7.45 PCO2 ARTERIAL (BEAKER) (test code = 384) 48 mmHg 35-45 H PO2 ARTERIAL (BEAKER) (test code = 385) 74 mmHg 80-90 L O2 SATURATION ARTERIAL (BEAKER) (test code = 386) 94.4 % 96.0 -97.0 L HCO3 ARTERIAL (BEAKER) (test code = 388) 26 mmol/L 21-29 BASE EXCESS ARTERIAL (BEAKER) (test code = 387) -0.4 mmol/L -2.0-3 .0 PATIENT TEMPERATURE (BEAKER) (test code = 1818) 36.5 C FIO2 (BEAKER) (test code = 1819) 40.0 % POCT-GLUCOSE [id number] 02:41:00* Test Item Value Reference Range Interpretation Comments POC-GLUCOSE METER (BEAKER) (test code = 1538) 201 mg/dL 70-110 H : TESTED AT [place] [id number] [facility], [address]: Marketing Strategy Manager/Clinical Laboratory Technician ID = [id number] for CARMINE FRANKS CALCIUM, [id number] 02:40:00* Test Item Value Reference Range Interpretation Comments CALCIUM IONIZED (BEAKER) (test code = 698) 1.13 mmol/L 1.12-1.27 PH, BLOOD (BEAKER) (test code = 1810) 7.34 [id number] 02:14:00* Test Item Value Reference Range Interpretation Comments PARTIAL THROMBOPLASTIN TIME (BEAKER) (test code = 760) 73.5 seconds 22.5-36.0 H POCT-GLUCOSE [id number] 01:40:00* Test Item Value Reference Range Interpretation Comments POC-GLUCOSE METER (BEAKER) (test code = 1538) 203 mg/dL 70-110 H : TESTED AT [facility] [address] [facility], [address]: Marketing Strategy Manager/Clinical Laboratory Technician ID = [id number] for CARMINE FRANKS POCT-GLUCOSE [id number] 23:56:00* Test Item Value Reference Range Interpretation Comments POC-GLUCOSE METER (BEAKER) (test code = 1538) 167 mg/dL 70-110 H : TESTED AT [facility] [address] [facility], [address]: Marketing Strategy Manager/Clinical Laboratory Technician ID = [id number] for CARMINE FRANKS BASIC METABOLIC [id number] 22:32:00* Test Item Value Reference Range Interpretation Comments SODIUM (BEAKER) (test code = 381) 136 meq/L 136-145 POTASSIUM (BEAKER) (test code = 379) 3.7 meq/L 3.5-5.1 CHLORIDE (BEAKER) (test code = 382) 104 meq/L 98-107 CO2 (BEAKER) (test code = 355) 24 meq/L 22-29 BLOOD UREA NITROGEN (BEAKER) (test code = 354) 26 mg/dL 7-21 H CREATININE (BEAKER) (test code = 358) 1.46 mg/dL 0.57-1.25 H GLUCOSE RANDOM (BEAKER) (test code = 652) 87 mg/dL 70-105 CALCIUM (BEAKER) (test code = 697) 7.9 mg/dL 8.4-10.2 L EGFR (BEAKER) (test code = 1092) 50 mL/min/1.73 sq m ESTIMATED GFR IS NOT ACCURATE CREATININE CLEARANCE IN PREDICTING GLOMERULAR FILTRATION RATE. ESTIMATED GFR IS NOT APPLICABLE FOR DIALYSIS PATIENTS. Marketing Strategy Manager ID - [id number] 22:30:00* Test Item Value Reference Range Interpretation Comments MAGNESIUM (BEAKER) (test code = 627) 1.9 mg/dL 1.6-2.6 Marketing Strategy Manager ID - BSBLOOD GAS, [id number] 22:28:00* Test Item Value Reference Range Interpretation Comments PH ARTERIAL (BEAKER) (test code = 383) 7.35 7.35-7.45 PCO2 ARTERIAL (BEAKER) (test code = 384) 49 mmHg 35-45 H PO2 ARTERIAL (BEAKER) (test code = 385) 62 mmHg 80-90 L O2 SATURATION ARTERIAL (BEAKER) (test code = 386) 90.3 % 96.0 -97.0 L HCO3 ARTERIAL (BEAKER) (test code = 388) 27 mmol/L 21-29 BASE EXCESS ARTERIAL (BEAKER) (test code = 387) 0.6 mmol/L -2.0-3 .0 PATIENT TEMPERATURE (BEAKER) (test code = 1818) 37.0 C FIO2 (BEAKER) (test code = 1819) 40.0 % POCT-GLUCOSE [id number] 22:12:00* Test Item Value Reference Range Interpretation Comments POC-GLUCOSE METER (BEAKER) (test code = 1538) 84 mg/dL 70-110 : TESTED AT [address], [address]: Marketing Strategy Manager/Clinical Laboratory Technician ID = [id number] for CARMINE FRANKS [id number] 19:18:00* Test Item Value Reference Range Interpretation Comments PARTIAL THROMBOPLASTIN TIME (BEAKER) (test code = 760) 87.3 seconds 22.5-36.0 H POCT-GLUCOSE [id number] 19:11:00* Test Item Value Reference Range Interpretation Comments POC-GLUCOSE METER (BEAKER) (test code = 1538) 127 mg/dL 70-110 H : TESTED AT [address], [address]: Marketing Strategy Manager/Clinical Laboratory Technician ID = [id number] for OSMAN, LAURA POCT-GLUCOSE [id number] 18:22:00* Test Item Value Reference Range Interpretation Comments POC-GLUCOSE METER (BEAKER) (test code = 1538) 128 mg/dL 70-110 H : TESTED AT [address], [address]: Marketing Strategy Manager/Clinical Laboratory Technician ID = [id number] for PHEN- GUILLAUME, BETY POCT-GLUCOSE [id number] 17:45:00* Test Item Value Reference Range Interpretation Comments POC-GLUCOSE METER (BEAKER) (test code = 1538) 138 mg/dL 70-110 H : TESTED AT [address], [address]: Marketing Strategy Manager/Clinical Laboratory Technician ID = [id number] for OSMAN, LAURA VANCOMYCIN LEVEL, [id number] 16:30:00* Test Item Value Reference Range Interpretation Comments VANCOMYCIN TROUGH (BEAKER) (test code = 522) 4.9 ug/mL 10.0-20.0 L Marketing Strategy Manager ID - BSPOCT-GLUCOSE [id number] 16:26:00* Test Item Value Reference Range Interpretation Comments POC-GLUCOSE METER (BEAKER) (test code = 1538) 153 mg/dL 70-110 H : TESTED AT [facility] [address] [facility] [place], [address]: Marketing Strategy Manager/Clinical Laboratory Technician ID = [id number] for LAURA BREWER [id number] 15:54:00* Test Item Value Reference Range Interpretation Comments PHOSPHORUS (BEAKER) (test code = 604) 2.7 mg/dL 2.3-4.7 Marketing Strategy Manager ID - BSBASIC METABOLIC [id number] 15:54:00* Test Item Value Reference Range Interpretation Comments SODIUM (BEAKER) (test code = 381) 135 meq/L 136-145 L POTASSIUM (BEAKER) (test code = 379) 3.7 meq/L 3.5-5.1 CHLORIDE (BEAKER) (test code = 382) 102 meq/L 98-107 CO2 (BEAKER) (test code = 355) 27 meq/L 22-29 BLOOD UREA NITROGEN (BEAKER) (test code = 354) 25 mg/dL 7-21 H CREATININE (BEAKER) (test code = 358) 1.31 mg/dL 0.57-1.25 H GLUCOSE RANDOM (BEAKER) (test code = 652) 147 mg/dL 70-105 H CALCIUM (BEAKER) (test code = 697) 8.5 mg/dL 8.4-10.2 EGFR (BEAKER) (test code = 1092) 57 mL/min/1.73 sq m ESTIMATED GFR IS NOT ACCURATE CREATININE CLEARANCE IN PREDICTING GLOMERULAR FILTRATION RATE. ESTIMATED GFR IS NOT APPLICABLE FOR DIALYSIS PATIENTS. Marketing Strategy Manager ID - BSLACTIC ACID, [id number] 15:50:00* Test Item Value Reference Range Interpretation Comments LACTATE BLOOD ARTERIAL (2) (BEAKER) (test code = 2874) 0.7 mmol/L 0.5-2.2 Specimen moderately hemolyzed Marketing Strategy Manager ID - BSBLOOD GAS, [id number] 15:30:00* Test Item Value Reference Range Interpretation Comments PH ARTERIAL (BEAKER) (test code = 383) 7.39 7.35-7.45 PCO2 ARTERIAL (BEAKER) (test code = 384) 44 mmHg 35-45 PO2 ARTERIAL (BEAKER) (test code = 385) 75 mmHg 80-90 L O2 SATURATION ARTERIAL (BEAKER) (test code = 386) 94.9 % 96.0 -97.0 L HCO3 ARTERIAL (BEAKER) (test code = 388) 26 mmol/L 21-29 BASE EXCESS ARTERIAL (BEAKER) (test code = 387) 0.9 mmol/L -2.0-3 .0 PATIENT TEMPERATURE (BEAKER) (test code = 1818) 37.0 C FIO2 (BEAKER) (test code = 1819) 40.0 % POCT-GLUCOSE [id number] 15:28:00* Test Item Value Reference Range Interpretation Comments POC-GLUCOSE METER (BEAKER) (test code = 1538) 138 mg/dL 70-110 H : TESTED AT [address], [address]: Marketing Strategy Manager/Clinical Laboratory Technician ID = [id number] for OSMAN LAURA POCT-GLUCOSE [id number] 14:29:00* Test Item Value Reference Range Interpretation Comments POC-GLUCOSE METER (BEAKER) (test code = 1538) 114 mg/dL 70-110 H : TESTED AT [address], [address]: Marketing Strategy Manager/Clinical Laboratory Technician ID = [id number] for OSMANVENESSA WASHINGTONINE [id number] 12:56:00* Test Item Value Reference Range Interpretation Comments PARTIAL THROMBOPLASTIN TIME (BEAKER) (test code = 760) 67.0 seconds 22.5-36.0 H POCT-GLUCOSE [id number] 12:35:00* Test Item Value Reference Range Interpretation Comments POC-GLUCOSE METER (BEAKER) (test code = 1538) 174 mg/dL 70-110 H : TESTED AT [place] [id number] [facility], [address]: Marketing Strategy Manager/Clinical Laboratory Technician ID = [id number] for OSMAN, LAURA POCT-GLUCOSE [id number] 11:40:00* Test Item Value Reference Range Interpretation Comments POC-GLUCOSE METER (BEAKER) (test code = 1538) 205 mg/dL 70-110 H : TESTED AT [address], [address]: Marketing Strategy Manager/Clinical Laboratory Technician ID = [id number] for OSMAN, LAURA [id number] 10:49:00* Test Item Value Reference Range Interpretation Comments PARTIAL THROMBOPLASTIN TIME (BEAKER) (test code = 760) 117.7 sec onds 22.5-36.0 H BASIC METABOLIC [id number] 10:46:00* Test Item Value Reference Range Interpretation Comments SODIUM (BEAKER) (test code = 381) 135 meq/L 136-145 L POTASSIUM (BEAKER) (test code = 379) 3.9 meq/L 3.5-5.1 CHLORIDE (BEAKER) (test code = 382) 102 meq/L 98-107 CO2 (BEAKER) (test code = 355) 27 meq/L 22-29 BLOOD UREA NITROGEN (BEAKER) (test code = 354) 25 mg/dL 7-21 H CREATININE (BEAKER) (test code = 358) 1.45 mg/dL 0.57-1.25 H GLUCOSE RANDOM (BEAKER) (test code = 652) 200 mg/dL 70-105 H CALCIUM (BEAKER) (test code = 697) 8.5 mg/dL 8.4-10.2 EGFR (BEAKER) (test code = 1092) 51 mL/min/1.73 sq m ESTIMATED GFR IS NOT ACCURATE CREATININE CLEARANCE IN PREDICTING GLOMERULAR FILTRATION RATE. ESTIMATED GFR IS NOT APPLICABLE FOR DIALYSIS PATIENTS. Marketing Strategy Manager ID - EDASIBLOOD GAS, [id number] 10:32:00* Test Item Value Reference Range Interpretation Comments PH ARTERIAL (BEAKER) (test code = 383) 7.36 7.35-7.45 PCO2 ARTERIAL (BEAKER) (test code = 384) 49 mmHg 35-45 H PO2 ARTERIAL (BEAKER) (test code = 385) 76 mmHg 80-90 L O2 SATURATION ARTERIAL (BEAKER) (test code = 386) 94.6 % 96.0 -97.0 L HCO3 ARTERIAL (BEAKER) (test code = 388) 27 mmol/L 21-29 BASE EXCESS ARTERIAL (BEAKER) (test code = 387) 0.9 mmol/L -2.0-3 .0 PATIENT TEMPERATURE (BEAKER) (test code = 1818) 37.0 C FIO2 (BEAKER) (test code = 1819) 40.0 % POCT-GLUCOSE [id number] 10:26:00* Test Item Value Reference Range Interpretation Comments POC-GLUCOSE METER (BEAKER) (test code = 1538) 179 mg/dL 70-110 H : TESTED AT [facility] [address] [facility], [address]: Marketing Strategy Manager/Clinical Laboratory Technician ID = [id number] for LAURA BREWER POCT-GLUCOSE [id number] 09:24:00* Test Item Value Reference Range Interpretation Comments POC-GLUCOSE METER (BEAKER) (test code = 1538) 176 mg/dL 70-110 H : TESTED AT [facility] [address] [facility], [address]: Marketing Strategy Manager/Clinical Laboratory Technician ID = [id number] for LAURA BREWER CBC W/PLT COUNT & AUTO [id number] 08:53:00* Test Item Value Reference Range Interpretation Comments WHITE BLOOD CELL COUNT (BEAKER) (test code = 775) 15.0 K/ L 3.5- 10.5 H RED BLOOD CELL COUNT (BEAKER) (test code = 761) 3.40 M/ L 4.63-6 .08 L HEMOGLOBIN (BEAKER) (test code = 410) 9.6 GM/DL 13.7-17.5 L HEMATOCRIT (BEAKER) (test code = 411) 31.1 % 40.1-51.0 L MEAN CORPUSCULAR VOLUME (BEAKER) (test code = 753) 91.5 fL 79. 0-92.2 MEAN CORPUSCULAR HEMOGLOBIN (BEAKER) (test code = 751) 28.2 pg 25.7-32.2 MEAN CORPUSCULAR HEMOGLOBIN CONC (BEAKER) (test code = 752) 30.9 GM/DL 32.3-36.5 L RED CELL DISTRIBUTION WIDTH (BEAKER) (test code = 412) 18.5 % 11.6-14.4 H PLATELET COUNT (BEAKER) (test code = 756) 115 K/CU MM 150-450 L MEAN PLATELET VOLUME (BEAKER) (test code = 754) 13.1 fL 9.4-12 .4 H NUCLEATED RED BLOOD CELLS (BEAKER) (test code = 413) 1 /100 WBC 0 -0 H (CELLAVISION MANUAL DIFF)2019-12-29 08:53:00* Test Item Value Reference Range Interpretation Comments NEUTROPHILS - REL (CELLAVISION)(BEAKER) (test code = 2816) 73 % LYMPHOCYTES - REL (CELLAVISION)(BEAKER) (test code = 2817) 10 % MONOCYTES - REL (CELLAVISION)(BEAKER) (test code = 2818) 5 % BASOPHILS - REL (CELLAVISION)(BEAKER) (test code = 2820) 3 % METAMYELOCYTES - REL (CELLAVISION)(BEAKER) (test code = 2821) 1 % 0-0 H MYELOCYTES - REL (CELLAVISION)(BEAKER) (test code = 2822) 4 % 0-0 H BANDS - REL (CELLAVISION)(BEAKER) (test code = 2826) 4 % 0 -10 NEUTROPHILS - ABS (CELLAVISION)(BEAKER) (test code = 2830) 10.95 K/ul 1.78-5.38 H LYMPHOCYTES - ABS (CELLAVISION)(BEAKER) (test code = 2831) 1.50 K/ul 1.32-3.57 MONOCYTES - ABS (CELLAVISION)(BEAKER) (test code = 2832) 0.75 K/uL 0.30-0.82 BASOPHILS - ABS (CELLAVISION)(BEAKER) (test code = 2835) 0.45 K/uL 0.01-0.08 H METAMYELOCYTES - ABS (CELLAVISION)(BEAKER) (test code = 2836 ) 0.15 K/uL 0.00-0.00 H MYELOCYTES-ABS (CELLAVISION)(BEAKER) (test code = 2837) 0.60 K/uL 0.00-0.00 H BANDS - ABS (CELLAVISION)(BEAKER) (test code = 2840) 0.60 K/uL 0 .00-0.80 TOTAL COUNTED (BEAKER) (test code = 1351) 100 MANUAL NRBC PER 100 CELLS (BEAKER) (test code = 1353) 1 /100 WBC 0-0 H PLT MORPHOLOGY (BEAKER) (test code = 486) Normal TOXIC GRANULATION (BEAKER) (test code = 771) Present POLYCHROMATOPHILLIC RBCS(BEAKER) (test code = 478) 2+ moderate HYPOCHROMIA (BEAKER) (test code = 963) 1+ few ANISOCYTOSIS (BEAKER) (test code = 961) 1+ few POIKILOCYTES (BEAKER) (test code = 966) 1+ few BASOPHILIC STIPPLING (BEAKER) (test code = 473) Present ARTIFACT (CELLAVISION)(BEAKER) (test code = 3432) Present HELMET CELLS (CELLAVISION)(BEAKER) (test code = 3434) 1+ few PLATELET CONCENTRATION (CELLAVISION)(BEAKER) (test code = 3438) Dec reased Marketing Strategy Manager ID - [id number] ID - Yasmine Mccarthy comments: Slide comments: Peripheral Blood Smear - Path [id number] 08:43:00* Test Item Value Reference Range Interpretation Comments Pathologist Review (test code = 2640) Leukocytosis wit h left shift, including circulating myeloid precursors. No definitive blasts are identified. Normocytic normochromic anemia with moderate anisopoikilocytosis and significant polychrom brandon. Few circulating nucleated erythroid precursors. T Pathologist: (test code = 2849) Mk Spicer M.D.(electroni c signature) LOY (test code = LOY) Leukocytosis with left shift , including circulating myeloid precursors. No definitive blasts are identified. Normocytic normochromic anemia with moderate anisopoikilocytosis and significant polychromasia. Few circulating nucleated erythroid precursors. Thrombocytopenia, with occasional large granular forms and rare giant platelets. [facility] PATHOLOGIST REVIEW 2019-12-29 08:43:00* Test Item Value Reference Range Interpretation Comments PERIPHERAL SMR REVIEW (BEAKER) (test code = 2640) Leuk ocytosis with left shift, including circulating myeloid precursors. No definitive blasts are identified. Normocytic normochromic anemia with moderate anisopoikilocytosis and significant polychromasia. Few circulating nucleated erythroid precursors. T [id number] (BEAKER) (test code = 1979) Yao Spicer M.D.(electronic signature) Leukocytosis with left shift, including circulating myeloid precursors. No defin itive blasts are identified. Normocytic normochromic anemia with moderate anisop oikilocytosis and significant polychromasia. Few circulating nucleated erythroid precursors. Thrombocytopenia, with occasional large granular forms and rare joo nt platelets.[id number] 08:21:00* Test Item Value Reference Range Interpretation Comments FERRITIN (BEAKER) (test code = 361) 6128.49 ng/mL 5.00-275.00 H Marketing Strategy Manager ID - EDASIPOCT-GLUCOSE [id number] 07:05:00* Test Item Value Reference Range Interpretation Comments POC-GLUCOSE METER (BEAKER) (test code = 1538) 141 mg/dL 70-110 H : TESTED AT [place] [id number] [facility], [address]: Marketing Strategy Manager/Clinical Laboratory Technician ID = [id number] for CARMINE FRANKS POCT-GLUCOSE [id number] 05:19:00* Test Item Value Reference Range Interpretation Comments POC-GLUCOSE METER (BEAKER) (test code = 1538) 121 mg/dL 70-110 H : TESTED AT [address], [address]: Marketing Strategy Manager/Clinical Laboratory Technician ID = [id number] for CARMINE FRANKS POCT-GLUCOSE [id number] 04:20:00* Test Item Value Reference Range Interpretation Comments POC-GLUCOSE METER (BEAKER) (test code = 1538) 121 mg/dL 70-110 H : TESTED AT [place] [id number] [facility], [address]: Marketing Strategy Manager/Clinical Laboratory Technician ID = [id number] for CARMINE FRANKS CALCIUM, [id number] 04:13:00* Test Item Value Reference Range Interpretation Comments CALCIUM IONIZED (BEAKER) (test code = 698) 1.06 mmol/L 1.12-1.27 L PH, BLOOD (BEAKER) (test code = 1810) 7.37 [id number] 03:46:00* Test Item Value Reference Range Interpretation Comments PROCALCITONIN (BEAKER) (test code = 3036) 1.59 ng/mL <0.05 H SEPSIS RISK (ng/mL)Low: 0.05-0.50Intermediate: 0.51-2.00High: > =2.01COMPREHENSIVE METABOLIC [id number] 03:39:00* Test Item Value Reference Range Interpretation Comments TOTAL PROTEIN (BEAKER) (test code = 770) 6.7 gm/dL 6.0-8.3 ALBUMIN (BEAKER) (test code = 1145) 3.0 g/dL 3.5-5.0 L ALKALINE PHOSPHATASE (BEAKER) (test code = 346) 797 U/L 40-150 H BILIRUBIN TOTAL (BEAKER) (test code = 377) 1.8 mg/dL 0.2-1.2 H SODIUM (BEAKER) (test code = 381) 136 meq/L 136-145 POTASSIUM (BEAKER) (test code = 379) 3.9 meq/L 3.5-5.1 CHLORIDE (BEAKER) (test code = 382) 102 meq/L 98-107 CO2 (BEAKER) (test code = 355) 26 meq/L 22-29 BLOOD UREA NITROGEN (BEAKER) (test code = 354) 26 mg/dL 7-21 H CREATININE (BEAKER) (test code = 358) 1.51 mg/dL 0.57-1.25 H GLUCOSE RANDOM (BEAKER) (test code = 652) 119 mg/dL 70-105 H CALCIUM (BEAKER) (test code = 697) 8.4 mg/dL 8.4-10.2 AST (SGOT) (BEAKER) (test code = 353) 316 U/L 5-34 H ALT (SGPT) (BEAKER) (test code = 347) 270 U/L 6-55 H EGFR (BEAKER) (test code = 1092) 48 mL/min/1.73 sq m ESTIMATED GFR IS NOT ACCURATE CREATININE CLEARANCE IN PREDICTING GLOMERULAR FILTRATION RATE. ESTIMATED GFR IS NOT APPLICABLE FOR DIALYSIS PATIENTS. Marketing Strategy Manager ID - EDASILACTATE DEHYDROGENASE (LDH)2019-12-29 03:39:00* Test Item Value Reference Range Interpretation Comments LACTATE DEHYDROGENASE (BEAKER) (test code = 635) 525 U/L 125-2 20 H Marketing Strategy Manager ID - EDASIC-REACTIVE [id number] 03:39:00* Test Item Value Reference Range Interpretation Comments C-REACTIVE PROTEIN (BEAKER) (test code = 676) 4.81 mg/dL 0.00-0.5 0 H Marketing Strategy Manager ID - [id number] 03:38:00* Test Item Value Reference Range Interpretation Comments PHOSPHORUS (BEAKER) (test code = 604) 3.6 mg/dL 2.3-4.7 Marketing Strategy Manager ID - [id number] 03:38:00* Test Item Value Reference Range Interpretation Comments MAGNESIUM (BEAKER) (test code = 627) 2.1 mg/dL 1.6-2.6 Marketing Strategy Manager ID - EDASILACTIC ACID, [id number] 03:28:00* Test Item Value Reference Range Interpretation Comments LACTATE BLOOD ARTERIAL (2) (BEAKER) (test code = 2874) 0.7 mmol/L 0.5-2.2 Specimen slightly hemolyzed Marketing Strategy Manager ID - EDASIPOCT-GLUCOSE [id number] 03:17:00* Test Item Value Reference Range Interpretation Comments POC-GLUCOSE METER (BEAKER) (test code = 1538) 106 mg/dL 70-110 : TESTED AT [address], [address]: Marketing Strategy Manager/Clinical Laboratory Technician ID = [id number] for CARMINE FRANKS BLOOD GAS, [id number] 03:14:00* Test Item Value Reference Range Interpretation Comments PH ARTERIAL (BEAKER) (test code = 383) 7.33 7.35-7.45 L PCO2 ARTERIAL (BEAKER) (test code = 384) 50 mmHg 35-45 H PO2 ARTERIAL (BEAKER) (test code = 385) 88 mmHg 80-90 O2 SATURATION ARTERIAL (BEAKER) (test code = 386) 96.1 % 96.0 -97.0 HCO3 ARTERIAL (BEAKER) (test code = 388) 26 mmol/L 21-29 BASE EXCESS ARTERIAL (BEAKER) (test code = 387) -0.4 mmol/L -2.0-3 .0 PATIENT TEMPERATURE (BEAKER) (test code = 1818) 37.0 C FIO2 (BEAKER) (test code = 1819) 45.0 % [id number] 02:14:00* Test Item Value Reference Range Interpretation Comments PARTIAL THROMBOPLASTIN TIME (BEAKER) (test code = 760) 73.3 seconds 22.5-36.0 H POCT-GLUCOSE [id number] 02:01:00* Test Item Value Reference Range Interpretation Comments POC-GLUCOSE METER (BEAKER) (test code = 1538) 112 mg/dL 70-110 H : TESTED AT [place] [id number] [facility] [place], [id number]: Marketing Strategy Manager/Clinical Laboratory Technician ID = [id number] for CARMINE FRANKS POCT-GLUCOSE [id number] 01:14:00* Test Item Value Reference Range Interpretation Comments POC-GLUCOSE METER (BEAKER) (test code = 1538) 131 mg/dL 70-110 H : TESTED AT [facility] [id number] [facility] [place], [id number]: Marketing Strategy Manager/Clinical Laboratory Technician ID = [id number] for CARMINE FRANKS [id number] 00:30:00* Test Item Value Reference Range Interpretation Comments PARTIAL THROMBOPLASTIN TIME (BEAKER) (test code = 760) 123.8 sec onds 22.5-36.0 H POCT-GLUCOSE [id number] 00:01:00* Test Item Value Reference Range Interpretation Comments POC-GLUCOSE METER (BEAKER) (test code = 1538) 135 mg/dL 70-110 H : TESTED AT [facility] [address] [facility] [place], [address]: Marketing Strategy Manager/Clinical Laboratory Technician ID = [id number] for CARMINE FRANKS POCT-GLUCOSE [id number] 22:28:00* Test Item Value Reference Range Interpretation Comments POC-GLUCOSE METER (BEAKER) (test code = 1538) 158 mg/dL 70-110 H : TESTED AT [place] [id number] [facility] [place], [address]: Marketing Strategy Manager/Clinical Laboratory Technician ID = [id number] for CARMINE FRANKS BLOOD [id number] 22:01:00* Test Item Value Reference Range Interpretation Comments CULTURE (BEAKER) (test code = 1095) No growth in 5 days [id number] 21:38:00* Test Item Value Reference Range Interpretation Comments MAGNESIUM (BEAKER) (test code = 627) 2.2 mg/dL 1.6-2.6 Specimen slightly hemolyzed Marketing Strategy Manager ID - [facility] METABOLIC [id number] 21:38:00* Test Item Value Reference Range Interpretation Comments SODIUM (BEAKER) (test code = 381) 134 meq/L 136-145 L POTASSIUM (BEAKER) (test code = 379) 3.7 meq/L 3.5-5.1 Specimen slightly hemolyzed CHLORIDE (BEAKER) (test code = 382) 104 meq/L 98-107 CO2 (BEAKER) (test code = 355) 23 meq/L 22-29 BLOOD UREA NITROGEN (BEAKER) (test code = 354) 30 mg/dL 7-21 H CREATININE (BEAKER) (test code = 358) 1.73 mg/dL 0.57-1.25 H Specimen slightly hemolyzed GLUCOSE RANDOM (BEAKER) (test code = 652) 186 mg/dL 70-105 H CALCIUM (BEAKER) (test code = 697) 8.0 mg/dL 8.4-10.2 L EGFR (BEAKER) (test code = 1092) 41 mL/min/1.73 sq m ESTIMATED GFR IS NOT ACCURATE CREATININE CLEARANCE IN PREDICTING GLOMERULAR FILTRATION RATE. ESTIMATED GFR IS NOT APPLICABLE FOR DIALYSIS PATIENTS. Marketing Strategy Manager ID - BSPOCT-GLUCOSE [id number] 21:09:00* Test Item Value Reference Range Interpretation Comments POC-GLUCOSE METER (BEAKER) (test code = 1538) 162 mg/dL 70-110 H : TESTED AT [address], [address]: Marketing Strategy Manager/Clinical Laboratory Technician ID = [id number] for Rica Forbes BLOOD GAS, [id number] 21:08:00* Test Item Value Reference Range Interpretation Comments PH ARTERIAL (BEAKER) (test code = 383) 7.33 7.35-7.45 L PCO2 ARTERIAL (BEAKER) (test code = 384) 51 mmHg 35-45 H PO2 ARTERIAL (BEAKER) (test code = 385) 79 mmHg 80-90 L O2 SATURATION ARTERIAL (BEAKER) (test code = 386) 94.8 % 96.0 -97.0 L HCO3 ARTERIAL (BEAKER) (test code = 388) 26 mmol/L 21-29 BASE EXCESS ARTERIAL (BEAKER) (test code = 387) -0.5 mmol/L -2.0-3 .0 PATIENT TEMPERATURE (BEAKER) (test code = 1818) 37.0 C FIO2 (BEAKER) (test code = 1819) 100.0 % POCT-GLUCOSE [id number] 21:04:00* Test Item Value Reference Range Interpretation Comments POC-GLUCOSE METER (BEAKER) (test code = 1538) 186 mg/dL 70-110 H : TESTED AT [address], [address]: Marketing Strategy Manager/Clinical Laboratory Technician ID = [id number] for JENNIFER KELLY POCT-GLUCOSE [id number] 19:26:00* Test Item Value Reference Range Interpretation Comments POC-GLUCOSE METER (BEAKER) (test code = 1538) 210 mg/dL 70-110 H : TESTED AT [address], [address]: Marketing Strategy Manager/Clinical Laboratory Technician ID = [id number] for JENNIFER KELLY RAD, CHEST, 1 VIEW, NON [id number] 19:17:00Reason for exam:->Central line placementShould this be performed at the bedside?->YesFINAL REPORT TECHNIQUE: Frontal view of the chest. INDICATION: Central line placement. COMPARISON: 12/25/2019. FINDINGS: LINES/TUBES: Right IJ central venous catheter tip terminates over the superior vena cava. Left IJ central venous catheter tip terminates at the SVC confluence. Endotracheal tube tip terminates over the midthoracic trachea. Enteric tube tip terminates in the proximal stomach.. LUNGS: Extensive bilateral pulmonary opacities are not sign ificantly changed. No significant effusion. No pneumothorax. HEART AND MEDIASTIN UM: The cardiomediastinal silhouette is within normal limits. SOFT TISSUES AND B ONES: Unremarkable. IMPRESSION:Placement of right IJ central venous catheter wi th the tip terminating over the superior vena cava. No pneumothorax. Unchanged d iffuse bilateral pulmonary opacities.. Signed: Ronnie Huang MDReport V erified Date/Time: 12/28/2019 19:17:04 Reading Location: [address] Reading Room Electronically signed by: RONNIE HUANG MD on 2019 07:17 PM POCT-GLUCOSE [id number] 19:00:00* Test Item Value Reference Range Interpretation Comments POC-GLUCOSE METER (BEAKER) (test code = 1538) 214 mg/dL 70-110 H : TESTED AT [facility] [address] [facility] [place], [address]: Marketing Strategy Manager/Clinical Laboratory Technician ID = [id number] for JENNIFER KELLY HEMOGLOBIN AND [id number] 17:03:00* Test Item Value Reference Range Interpretation Comments HEMOGLOBIN (BEAKER) (test code = 410) 9.0 GM/DL 13.7-17.5 L HEMATOCRIT (BEAKER) (test code = 411) 29.3 % 40.1-51.0 L Marketing Strategy Manager ID - [id number] 16:57:00* Test Item Value Reference Range Interpretation Comments PHOSPHORUS (BEAKER) (test code = 604) 3.7 mg/dL 2.3-4.7 Marketing Strategy Manager ID - BSBASIC METABOLIC [id number] 16:57:00* Test Item Value Reference Range Interpretation Comments SODIUM (BEAKER) (test code = 381) 136 meq/L 136-145 POTASSIUM (BEAKER) (test code = 379) 4.1 meq/L 3.5-5.1 CHLORIDE (BEAKER) (test code = 382) 103 meq/L 98-107 CO2 (BEAKER) (test code = 355) 26 meq/L 22-29 BLOOD UREA NITROGEN (BEAKER) (test code = 354) 29 mg/dL 7-21 H CREATININE (BEAKER) (test code = 358) 1.83 mg/dL 0.57-1.25 H GLUCOSE RANDOM (BEAKER) (test code = 652) 198 mg/dL 70-105 H CALCIUM (BEAKER) (test code = 697) 8.2 mg/dL 8.4-10.2 L EGFR (BEAKER) (test code = 1092) 39 mL/min/1.73 sq m ESTIMATED GFR IS NOT ACCURATE CREATININE CLEARANCE IN PREDICTING GLOMERULAR FILTRATION RATE. ESTIMATED GFR IS NOT APPLICABLE FOR DIALYSIS PATIENTS. Marketing Strategy Manager ID - BSLACTIC ACID, [id number] 16:53:00* Test Item Value Reference Range Interpretation Comments LACTATE BLOOD ARTERIAL (2) (BEAKER) (test code = 2874) 0.7 mmol/L 0.5-2.2 Marketing Strategy Manager ID - [id number] 16:50:00* Test Item Value Reference Range Interpretation Comments PARTIAL THROMBOPLASTIN TIME (BEAKER) (test code = 760) 68.0 seconds 22.5-36.0 H (CELLAVISION MANUAL DIFF)2019-12-28 16:41:00* Test Item Value Reference Range Interpretation Comments NEUTROPHILS - REL (CELLAVISION)(BEAKER) (test code = 2816) 71 % LYMPHOCYTES - REL (CELLAVISION)(BEAKER) (test code = 2817) 7 % MONOCYTES - REL (CELLAVISION)(BEAKER) (test code = 2818) 5 % BASOPHILS - REL (CELLAVISION)(BEAKER) (test code = 2820) 2 % METAMYELOCYTES - REL (CELLAVISION)(BEAKER) (test code = 2821) 5 % 0-0 H BANDS - REL (CELLAVISION)(BEAKER) (test code = 2826) 10 % 0 -10 NEUTROPHILS - ABS (CELLAVISION)(BEAKER) (test code = 2830) 10.65 K/ul 1.78-5.38 H LYMPHOCYTES - ABS (CELLAVISION)(BEAKER) (test code = 2831) 1.05 K/ul 1.32-3.57 L MONOCYTES - ABS (CELLAVISION)(BEAKER) (test code = 2832) 0.75 K/uL 0.30-0.82 BASOPHILS - ABS (CELLAVISION)(BEAKER) (test code = 2835) 0.30 K/uL 0.01-0.08 H METAMYELOCYTES - ABS (CELLAVISION)(BEAKER) (test code = 2836 ) 0.75 K/uL 0.00-0.00 H BANDS - ABS (CELLAVISION)(BEAKER) (test code = 2840) 1.50 K/uL 0 .00-0.80 H TOTAL COUNTED (BEAKER) (test code = 1351) 100 MANUAL NRBC PER 100 CELLS (BEAKER) (test code = 1353) 1 /100 WBC 0-0 H WBC MORPHOLOGY (BEAKER) (test code = 487) Normal GIANT PLATELETS (BEAKER) (test code = 313) Present POLYCHROMATOPHILLIC RBCS(BEAKER) (test code = 478) 3+ many ANISOCYTOSIS (BEAKER) (test code = 961) 3+ many MICROCYTES (BEAKER) (test code = 965) 3+ many BASOPHILIC STIPPLING (BEAKER) (test code = 473) Present ARTIFACT (CELLAVISION)(BEAKER) (test code = 3432) Present PLATELET CONCENTRATION (CELLAVISION)(BEAKER) (test code = 3438) Dec reased Marketing Strategy Manager ID - [id number] ID - Edi comments: Slide comments: CBC with platelet count + manual [id number] 16:32:00* Test Item Value Reference Range Interpretation Comments WBC (test code = 6690-2) 15.0 3.5- 10.5 K/L H RBC (test code = 789-8) 3.13 4.63- 6.08 M/L L MCHC (test code = 786-4) 31.2 32.3- 36.5 GM/DL L Hematocrit (test code = 4544-3) 28.5 % 40.1-51 L MCV (test code = 787-2) 91.1 fL 79-92.2 MCH (test code = 785-6) 28.4 pg 25.7-32.2 RDW (test code = 788-0) 17.8 % 11.6-14.4 H Platelets (test code = 777-3) 89 150- 450 K/CU MM L MPV (test code = 92567-3) 13.5 fL 9.4-12.4 H nRBC (test code = 413) 1 0- 0 /100 WBC H Lab Interpretation (test code = 45510-4) Abnormal [facility] WITH PLATELET COUNT + MANUAL [id number] 16:32:00* Test Item Value Reference Range Interpretation Comments WHITE BLOOD CELL COUNT (BEAKER) (test code = 775) 15.0 K/ L 3.5- 10.5 H RED BLOOD CELL COUNT (BEAKER) (test code = 761) 3.13 M/ L 4.63-6 .08 L HEMOGLOBIN (BEAKER) (test code = 410) 8.9 GM/DL 13.7-17.5 L HEMATOCRIT (BEAKER) (test code = 411) 28.5 % 40.1-51.0 L MEAN CORPUSCULAR VOLUME (BEAKER) (test code = 753) 91.1 fL 79. 0-92.2 MEAN CORPUSCULAR HEMOGLOBIN (BEAKER) (test code = 751) 28.4 pg 25.7-32.2 MEAN CORPUSCULAR HEMOGLOBIN CONC (BEAKER) (test code = 752) 31.2 GM/DL 32.3-36.5 L RED CELL DISTRIBUTION WIDTH (BEAKER) (test code = 412) 17.8 % 11.6-14.4 H PLATELET COUNT (BEAKER) (test code = 756) 89 K/CU MM 150-450 L MEAN PLATELET VOLUME (BEAKER) (test code = 754) 13.5 fL 9.4-12 .4 H NUCLEATED RED BLOOD CELLS (BEAKER) (test code = 413) 1 /100 WBC 0 -0 H BLOOD GAS, [id number] 16:21:00* Test Item Value Reference Range Interpretation Comments PH ARTERIAL (BEAKER) (test code = 383) 7.32 7.35-7.45 L PCO2 ARTERIAL (BEAKER) (test code = 384) 53 mmHg 35-45 H PO2 ARTERIAL (BEAKER) (test code = 385) 91 mmHg 80-90 H O2 SATURATION ARTERIAL (BEAKER) (test code = 386) 96.2 % 96.0 -97.0 HCO3 ARTERIAL (BEAKER) (test code = 388) 27 mmol/L 21-29 BASE EXCESS ARTERIAL (BEAKER) (test code = 387) 0.0 mmol/L -2.0-3 .0 PATIENT TEMPERATURE (BEAKER) (test code = 1818) 37.0 C FIO2 (BEAKER) (test code = 1819) 45.0 % POCT-GLUCOSE [id number] 15:26:00* Test Item Value Reference Range Interpretation Comments POC-GLUCOSE METER (BEAKER) (test code = 1538) 152 mg/dL 70-110 H : TESTED AT [address], [address]: Marketing Strategy Manager/Clinical Laboratory Technician ID = [id number] for JUDYGIANNIJENNIFER LANCASTER Reticulocyte [id number] 14:28:00* Test Item Value Reference Range Interpretation Comments % Retic (test code = 80469-8) 8.3 % 0.5-1.8 H Lab Interpretation (test code = 41465-6) [facility] [id number] 14:28:00* Test Item Value Reference Range Interpretation Comments Immature Reticulocyte Fraction (test code = 61060-0) 55.100 % 2 .3-13.4 H NA % Retic (test code = 15708-6) 8.3 % 0.5-1.8 H LOY (test code = LOY) Marketing Strategy Manager ID - [id number] comments: Slide commen ts: Lab Interpretation (test code = 01013-9) Abnormal [facility] Center[facility] [id number] 14:28:00* Test Item Value Reference Range Interpretation Comments RETICULOCYTE COUNT PCT (BEAKER) (test code = 575) 8.3 % 0.5- 1.8 H IMMATURE RETICULOCYTE [id number] 14:28:00* Test Item Value Reference Range Interpretation Comments IMMATURE RETIC FRACTION (BEAKER) (test code = 1447) 55.100 % 2. 300-13.400 H NA RETICULOCYTE COUNT PCT (BEAKER) (test code = 575) 8.3 % 0.5- 1.8 H Marketing Strategy Manager ID - [id number] comments: Slide comments: POCT-GLUCOSE [id number] 13:39:00* Test Item Value Reference Range Interpretation Comments POC-GLUCOSE METER (BEAKER) (test code = 1538) 118 mg/dL 70-110 H : TESTED AT [facility] [address] [facility] [place], [address]: Marketing Strategy Manager/Clinical Laboratory Technician ID = [id number] for JENNIFER KELLY [id number] 13:32:00* Test Item Value Reference Range Interpretation Comments HAPTOGLOBIN (BEAKER) (test code = 366) 230 mg/dL 14-258 Marketing Strategy Manager ID - [id number] 13:29:00* Test Item Value Reference Range Interpretation Comments PARTIAL THROMBOPLASTIN TIME (BEAKER) (test code = 760) 57.4 seconds 22.5-36.0 H PROTHROMBIN [id number] 13:28:00* Test Item Value Reference Range Interpretation Comments PROTIME (BEAKER) (test code = 759) 14.9 seconds 11.9-14.2 H INR (BEAKER) (test code = 370) 1.2 <=5.9 Effective 11/04/2018: PT Reference Range ChangeNew: 11.9-14.2 Previous: 11.7-14. 7RECOMMENDED COUMADIN/WARFARIN INR THERAPY RANGESSTANDARD DOSE: 2.0-3.0 Include s: PROPHYLAXIS for venous thrombosis, systemic embolization; TREATMENT for venou s thrombosis and/or pulmonary embolus.HIGH RISK: Target INR is 2.5-3.5 for patie nts wiht mechanical heart valves.LACTATE DEHYDROGENASE (LDH)2019-12-28 13:25:00 * Test Item Value Reference Range Interpretation Comments LACTATE DEHYDROGENASE (BEAKER) (test code = 635) 447 U/L 125-2 20 H Marketing Strategy Manager ID - LMHEPATIC FUNCTION [id number] 13:25:00* Test Item Value Reference Range Interpretation Comments TOTAL PROTEIN (BEAKER) (test code = 770) 6.6 gm/dL 6.0-8.3 ALBUMIN (BEAKER) (test code = 1145) 3.1 g/dL 3.5-5.0 L BILIRUBIN TOTAL (BEAKER) (test code = 377) 1.0 mg/dL 0.2-1.2 BILIRUBIN DIRECT (BEAKER) (test code = 706) 0.9 mg/dL 0.1-0.5 H ALKALINE PHOSPHATASE (BEAKER) (test code = 346) 615 U/L 40-150 H AST (SGOT) (BEAKER) (test code = 353) 127 U/L 5-34 H ALT (SGPT) (BEAKER) (test code = 347) 128 U/L 6-55 H Marketing Strategy Manager ID - LMU/S, RENAL, [id number] 13:02:00Reason for exam:-> Persistent Candiduria and sepisis. lOoking for renal and system involvement. Fun gual balls and suchFINAL REPORT TECHNIQUE: Grayscale ultrasound of the kidneys and bladder. INDICATION: 53-year-old man with candiduria and sepsis. COMPARISON: None. FINDINGS: RIGHT KIDNEY: Right kidney measures 11.3 x 5.7 x 5.3 cm with cortical thickness of 1.3 cm. No solid mass. No hydronephrosis. Renal artery and vein are patent. LEFT KIDNEY: Left kidney measures 12 x 5.5 x 4.3 cm with cortical thickness of 1.3 cm. No solid mass. No hydronephrosis. Renal artery and vein are patent. BLADDER: Debris/septations within the bladder. IMPRESSION:Unremarkable kidneys. Debris/septations within the bladder. Differential considerations include sequela of urinary tract infection and hematuria. This finding may be correlated with urinalysis. Signed: Carli Garrido MDReport Verified Date/Time: 12/28/2019 13:02:07 Reading Location: [address] Radiology Reading Room renal [id number] 13:02:00Interface, External Ris In - 12/28/2019 1:04 PM CDTFINAL REPORT TECHNIQUE: Grayscale ultrasound of the kidneys and bladder. INDICATION: 53-year-old man with candiduria and sepsis. COMPARISON: None. FINDINGS: RIGHT KIDNEY: Right kidney measures 11.3 x 5.7 x 5.3 cm with cortical thickness of 1.3 cm. No solid mass. No hydronephrosis. Renal artery and vein are patent. LEFT KIDNEY: Left kidney measures 12 x 5.5 x 4.3 cm with cortical thickness of 1.3 cm. No solid mass. No hydronephrosis. Renal artery and vein are patent. BLADDER: Debris/septations within the bladder. IMPRESSION:Unremarkable kidneys. Debris/septations within the bladder. Differential considerations include sequela of urinary tract infection and hematuria. This finding may be correlated with urinalysis. Signed: Carli Garrido Verified Date/Time: 12/28/2019 13:02:07 Reading Location: [address] Radiology Reading Room [facility] [id number] 12:34:00* Test Item Value Reference Range Interpretation Comments POC-GLUCOSE METER (BEAKER) (test code = 1538) 103 mg/dL 70-110 : TESTED AT [address], [address]: Marketing Strategy Manager/Clinical Laboratory Technician ID = [id number] for BRISEIDA-ITTARIANNE, JENNIFER POCT-GLUCOSE [id number] 12:28:00* Test Item Value Reference Range Interpretation Comments POC-GLUCOSE METER (BEAKER) (test code = 1538) 114 mg/dL 70-110 H : TESTED AT [address], [address]: Marketing Strategy Manager/Clinical Laboratory Technician ID = [id number] for MURREY-ITTMANN, JENNIFER POCT-GLUCOSE [id number] 12:03:00* Test Item Value Reference Range Interpretation Comments POC-GLUCOSE METER (BEAKER) (test code = 1538) 95 mg/dL 70-110 : TESTED AT [address], [address]: Marketing Strategy Manager/Clinical Laboratory Technician ID = [id number] for MURREY-ITTMANN, JENNIFER POCT-GLUCOSE [id number] 11:41:00* Test Item Value Reference Range Interpretation Comments POC-GLUCOSE METER (BEAKER) (test code = 1538) 136 mg/dL 70-110 H : TESTED AT [facility] [address] [facility], [address]: Marketing Strategy Manager/Clinical Laboratory Technician ID = [id number] for JENNIFER KELLY BLOOD GAS, [id number] 10:54:00* Test Item Value Reference Range Interpretation Comments PH ARTERIAL (BEAKER) (test code = 383) 7.40 7.35-7.45 PCO2 ARTERIAL (BEAKER) (test code = 384) 41 mmHg 35-45 PO2 ARTERIAL (BEAKER) (test code = 385) 77 mmHg 80-90 L O2 SATURATION ARTERIAL (BEAKER) (test code = 386) 96.2 % 96.0 -97.0 HCO3 ARTERIAL (BEAKER) (test code = 388) 25 mmol/L 21-29 BASE EXCESS ARTERIAL (BEAKER) (test code = 387) 0.0 mmol/L -2.0-3 .0 PATIENT TEMPERATURE (BEAKER) (test code = 1818) 35.5 C FIO2 (BEAKER) (test code = 1819) 40.0 % POCT-GLUCOSE [id number] 10:48:00* Test Item Value Reference Range Interpretation Comments POC-GLUCOSE METER (BEAKER) (test code = 1538) 136 mg/dL 70-110 H : TESTED AT [facility] [address] [facility], [address]: Marketing Strategy Manager/Clinical Laboratory Technician ID = [id number] for JENNIFER KELLY CBC W/PLT COUNT & AUTO [id number] 10:42:00* Test Item Value Reference Range Interpretation Comments WHITE BLOOD CELL COUNT (BEAKER) (test code = 775) 11.5 K/ L 3.5- 10.5 H RED BLOOD CELL COUNT (BEAKER) (test code = 761) 3.23 M/ L 4.63-6 .08 L HEMOGLOBIN (BEAKER) (test code = 410) 8.9 GM/DL 13.7-17.5 L HEMATOCRIT (BEAKER) (test code = 411) 29.4 % 40.1-51.0 L MEAN CORPUSCULAR VOLUME (BEAKER) (test code = 753) 91.0 fL 79. 0-92.2 MEAN CORPUSCULAR HEMOGLOBIN (BEAKER) (test code = 751) 27.6 pg 25.7-32.2 MEAN CORPUSCULAR HEMOGLOBIN CONC (BEAKER) (test code = 752) 30.3 GM/DL 32.3-36.5 L RED CELL DISTRIBUTION WIDTH (BEAKER) (test code = 412) 17.4 % 11.6-14.4 H PLATELET COUNT (BEAKER) (test code = 756) 100 K/CU MM 150-450 L MEAN PLATELET VOLUME (BEAKER) (test code = 754) 12.5 fL 9.4-12 .4 H NUCLEATED RED BLOOD CELLS (BEAKER) (test code = 413) 2 /100 WBC 0 -0 H (CELLAVISION MANUAL DIFF)2019-12-28 10:42:00* Test Item Value Reference Range Interpretation Comments NEUTROPHILS - REL (CELLAVISION)(BEAKER) (test code = 2816) 72 % LYMPHOCYTES - REL (CELLAVISION)(BEAKER) (test code = 2817) 10 % MONOCYTES - REL (CELLAVISION)(BEAKER) (test code = 2818) 6 % EOSINOPHILS - REL (CELLAVISION)(BEAKER) (test code = 2819) 1 % BASOPHILS - REL (CELLAVISION)(BEAKER) (test code = 2820) 1 % METAMYELOCYTES - REL (CELLAVISION)(BEAKER) (test code = 2821) 2 % 0-0 H MYELOCYTES - REL (CELLAVISION)(BEAKER) (test code = 2822) 1 % 0-0 H BANDS - REL (CELLAVISION)(BEAKER) (test code = 2826) 6 % 0 -10 NEUTROPHILS - ABS (CELLAVISION)(BEAKER) (test code = 2830) 8.28 K/ul 1.78-5.38 H LYMPHOCYTES - ABS (CELLAVISION)(BEAKER) (test code = 2831) 1.15 K/ul 1.32-3.57 L MONOCYTES - ABS (CELLAVISION)(BEAKER) (test code = 2832) 0.69 K/uL 0.30-0.82 EOSINOPHILS - ABS (CELLAVISION)(BEAKER) (test code = 2834) 0.12 K/uL 0.04-0.54 BASOPHILS - ABS (CELLAVISION)(BEAKER) (test code = 2835) 0.12 K/uL 0.01-0.08 H METAMYELOCYTES - ABS (CELLAVISION)(BEAKER) (test code = 2836 ) 0.23 K/uL 0.00-0.00 H MYELOCYTES-ABS (CELLAVISION)(BEAKER) (test code = 2837) 0.12 K/uL 0.00-0.00 H BANDS - ABS (CELLAVISION)(BEAKER) (test code = 2840) 0.69 K/uL 0 .00-0.80 TOTAL COUNTED (BEAKER) (test code = 1351) 100 MANUAL NRBC PER 100 CELLS (BEAKER) (test code = 1353) 1 /100 WBC 0-0 H PLT MORPHOLOGY (BEAKER) (test code = 486) Normal TOXIC GRANULATION (BEAKER) (test code = 771) Present POLYCHROMATOPHILLIC RBCS(BEAKER) (test code = 478) 1+ few HYPOCHROMIA (BEAKER) (test code = 963) 1+ few ANISOCYTOSIS (BEAKER) (test code = 961) 1+ few POIKILOCYTES (BEAKER) (test code = 966) 1+ few TEAR DROP CELLS (BEAKER) (test code = 481) 1+ few BASOPHILIC STIPPLING (BEAKER) (test code = 473) Present ARTIFACT (CELLAVISION)(BEAKER) (test code = 3432) Present PLATELET CONCENTRATION (CELLAVISION)(BEAKER) (test code = 3438) Dec reased Marketing Strategy Manager ID - Yasmine Mccarthy comments: Slide comments: [id number] 09:46:00* Test Item Value Reference Range Interpretation Comments PARTIAL THROMBOPLASTIN TIME (BEAKER) (test code = 760) 105.8 sec onds 22.5-36.0 H [id number] 09:44:00* Test Item Value Reference Range Interpretation Comments MAGNESIUM (BEAKER) (test code = 627) 2.4 mg/dL 1.6-2.6 Marketing Strategy Manager ID - LMBASIC METABOLIC [id number] 09:44:00* Test Item Value Reference Range Interpretation Comments SODIUM (BEAKER) (test code = 381) 134 meq/L 136-145 L POTASSIUM (BEAKER) (test code = 379) 3.6 meq/L 3.5-5.1 CHLORIDE (BEAKER) (test code = 382) 102 meq/L 98-107 CO2 (BEAKER) (test code = 355) 27 meq/L 22-29 BLOOD UREA NITROGEN (BEAKER) (test code = 354) 25 mg/dL 7-21 H CREATININE (BEAKER) (test code = 358) 1.74 mg/dL 0.57-1.25 H GLUCOSE RANDOM (BEAKER) (test code = 652) 183 mg/dL 70-105 H CALCIUM (BEAKER) (test code = 697) 8.4 mg/dL 8.4-10.2 EGFR (BEAKER) (test code = 1092) 41 mL/min/1.73 sq m ESTIMATED GFR IS NOT ACCURATE CREATININE CLEARANCE IN PREDICTING GLOMERULAR FILTRATION RATE. ESTIMATED GFR IS NOT APPLICABLE FOR DIALYSIS PATIENTS. Marketing Strategy Manager ID - LMBLOOD GAS, [id number] 09:29:00* Test Item Value Reference Range Interpretation Comments PH ARTERIAL (BEAKER) (test code = 383) 7.34 7.35-7.45 L PCO2 ARTERIAL (BEAKER) (test code = 384) 52 mmHg 35-45 H PO2 ARTERIAL (BEAKER) (test code = 385) 85 mmHg 80-90 O2 SATURATION ARTERIAL (BEAKER) (test code = 386) 96.0 % 96.0 -97.0 HCO3 ARTERIAL (BEAKER) (test code = 388) 28 mmol/L 21-29 BASE EXCESS ARTERIAL (BEAKER) (test code = 387) 1.6 mmol/L -2.0-3 .0 PATIENT TEMPERATURE (BEAKER) (test code = 1818) 36.5 C FIO2 (BEAKER) (test code = 1819) 40.0 % CALCIUM, [id number] 09:25:00* Test Item Value Reference Range Interpretation Comments CALCIUM IONIZED (BEAKER) (test code = 698) 1.15 mmol/L 1.12-1.27 PH, BLOOD (BEAKER) (test code = 1810) 7.34 POCT-GLUCOSE [id number] 09:06:00* Test Item Value Reference Range Interpretation Comments POC-GLUCOSE METER (BEAKER) (test code = 1538) 170 mg/dL 70-110 H : TESTED AT [address], [id number]: Marketing Strategy Manager/Clinical Laboratory Technician ID = [id number] for JENNIFER KELLY SPUTUM CULTURE + GRAM [id number] 08:51:00* Test Item Value Reference Range Interpretation Comments CULTURE (BEAKER) (test code = 1095) 2+ Normal respiratory stacie pre sent GRAM STAIN RESULT (BEAKER) (test code = 1123) 1+ WBCs GRAM STAIN RESULT (BEAKER) (test code = 82574) 0-5 epithelial cells GRAM STAIN RESULT (BEAKER) (test code = 41276) <1+ budding yeast Gamma Glutamyl Transferase (GGT)2019-12-28 08:08:00* Test Item Value Reference Range Interpretation Comments GGT (test code = 2324-2) 1589 U/L 9-64 H Spe cimen slightly hemolyzed LOY (test code = LOY) Marketing Strategy Manager ID - LM Lab Interpretation (test code = 95340-1) [facility]GGT)2019-12-28 08:08:00 * Test Item Value Reference Range Interpretation Comments GAMMA GLUTAMYL TRANSFERASE (BEAKER) (test code = 364) 1589 U/L 9-64 H Specimen slightly hemolyzed Marketing Strategy Manager ID - LMPOCT-GLUCOSE [id number] 07:55:00* Test Item Value Reference Range Interpretation Comments POC-GLUCOSE METER (BEAKER) (test code = 1538) 178 mg/dL 70-110 H : TESTED AT [address], [id number]: Marketing Strategy Manager/Clinical Laboratory Technician ID = [id number] for JENNIFER KELLY POCT-GLUCOSE [id number] 06:05:00* Test Item Value Reference Range Interpretation Comments POC-GLUCOSE METER (BEAKER) (test code = 1538) 212 mg/dL 70-110 H : TESTED AT [place] [id number] [facility] [facility] [place], [address]: Marketing Strategy Manager/Clinical Laboratory Technician ID = [id number] for CATE, VALSA POCT-GLUCOSE [id number] 06:03:00* Test Item Value Reference Range Interpretation Comments POC-GLUCOSE METER (BEAKER) (test code = 1538) 199 mg/dL 70-110 H : TESTED AT [address], [address]: Marketing Strategy Manager/Clinical Laboratory Technician ID = [id number] for CATE, VALSA [id number] 04:41:00* Test Item Value Reference Range Interpretation Comments MAGNESIUM (BEAKER) (test code = 627) 2.1 mg/dL 1.6-2.6 Specimen slightly hemolyzed Marketing Strategy Manager ID - IVELISSE [id number] 04:41:00* Test Item Value Reference Range Interpretation Comments PHOSPHORUS (BEAKER) (test code = 604) 4.1 mg/dL 2.3-4.7 Specimen slightly hemolyzed Marketing Strategy Manager ID - IVELISSE WCOMPREHENSIVE METABOLIC [id number] 04:41:00* Test Item Value Reference Range Interpretation Comments TOTAL PROTEIN (BEAKER) (test code = 770) 6.5 gm/dL 6.0-8.3 Specimen slightly hemolyzed ALBUMIN (BEAKER) (test code = 1145) 3.1 g/dL 3.5-5.0 L Specimen slightly hemolyzed ALKALINE PHOSPHATASE (BEAKER) (test code = 346) 586 U/L 40-150 H BILIRUBIN TOTAL (BEAKER) (test code = 377) 0.9 mg/dL 0.2-1.2 Specimen slightly hemolyzed SODIUM (BEAKER) (test code = 381) 137 meq/L 136-145 POTASSIUM (BEAKER) (test code = 379) 4.5 meq/L 3.5-5.1 Specimen slightly hemolyzed CHLORIDE (BEAKER) (test code = 382) 103 meq/L 98-107 CO2 (BEAKER) (test code = 355) 25 meq/L 22-29 BLOOD UREA NITROGEN (BEAKER) (test code = 354) 25 mg/dL 7-21 H CREATININE (BEAKER) (test code = 358) 1.67 mg/dL 0.57-1.25 H Specimen slightly hemolyzed GLUCOSE RANDOM (BEAKER) (test code = 652) 182 mg/dL 70-105 H CALCIUM (BEAKER) (test code = 697) 8.4 mg/dL 8.4-10.2 AST (SGOT) (BEAKER) (test code = 353) 144 U/L 5-34 H Specimen slightly hemolyzed ALT (SGPT) (BEAKER) (test code = 347) 129 U/L 6-55 H Specimen slightly hemolyzed EGFR (BEAKER) (test code = 1092) 43 mL/min/1.73 sq m ESTIMATED GFR IS NOT ACCURATE CREATININE CLEARANCE IN PREDICTING GLOMERULAR FILTRATION RATE. ESTIMATED GFR IS NOT APPLICABLE FOR DIALYSIS PATIENTS. Marketing Strategy Manager ID Monisha OVIEDO [id number] 04:34:00* Test Item Value Reference Range Interpretation Comments PARTIAL THROMBOPLASTIN TIME (BEAKER) (test code = 760) 88.0 seconds 22.5-36.0 H BLOOD GAS, [id number] 04:28:00* Test Item Value Reference Range Interpretation Comments PH ARTERIAL (BEAKER) (test code = 383) 7.34 7.35-7.45 L PCO2 ARTERIAL (BEAKER) (test code = 384) 50 mmHg 35-45 H PO2 ARTERIAL (BEAKER) (test code = 385) 94 mmHg 80-90 H O2 SATURATION ARTERIAL (BEAKER) (test code = 386) 96.5 % 96.0 -97.0 HCO3 ARTERIAL (BEAKER) (test code = 388) 26 mmol/L 21-29 BASE EXCESS ARTERIAL (BEAKER) (test code = 387) -0.1 mmol/L -2.0-3 .0 PATIENT TEMPERATURE (BEAKER) (test code = 1818) 37.5 C FIO2 (BEAKER) (test code = 1819) 50.0 % LACTIC ACID, [id number] 04:25:00* Test Item Value Reference Range Interpretation Comments LACTATE BLOOD ARTERIAL (2) (BEAKER) (test code = 2874) 0.7 mmol/L 0.5-2.2 Specimen slightly hemolyzed Marketing Strategy Manager ID Monisha OVIEDO WPOCT-GLUCOSE [id number] 02:09:00* Test Item Value Reference Range Interpretation Comments POC-GLUCOSE METER (BEAKER) (test code = 1538) 110 mg/dL 70-110 : TESTED AT [address], [address]: Marketing Strategy Manager/Clinical Laboratory Technician ID = [id number] for CATE, VALSA POCT-GLUCOSE [id number] 01:15:00* Test Item Value Reference Range Interpretation Comments POC-GLUCOSE METER (BEAKER) (test code = 1538) 80 mg/dL 70-110 : TESTED AT [place] [id number] [facility] [place], [address]: Marketing Strategy Manager/Clinical Laboratory Technician ID = [id number] for CATE, VALSA POCT-GLUCOSE [id number] 23:52:00* Test Item Value Reference Range Interpretation Comments POC-GLUCOSE METER (BEAKER) (test code = 1538) 101 mg/dL 70-110 : TESTED AT [facility] [address] [facility] [place], [address]: Marketing Strategy Manager/Clinical Laboratory Technician ID = [id number] for FILOMENA ESPOSITO POCT-GLUCOSE [id number] 22:39:00* Test Item Value Reference Range Interpretation Comments POC-GLUCOSE METER (BEAKER) (test code = 1538) 131 mg/dL 70-110 H : TESTED AT [facility] [address] [facility] [place], [address]: Marketing Strategy Manager/Clinical Laboratory Technician ID = [id number] for FILOMENA ESPOSITO BLOOD GAS, [id number] 22:38:00* Test Item Value Reference Range Interpretation Comments PH ARTERIAL (BEAKER) (test code = 383) 7.32 7.35-7.45 L PCO2 ARTERIAL (BEAKER) (test code = 384) 53 mmHg 35-45 H PO2 ARTERIAL (BEAKER) (test code = 385) 75 mmHg 80-90 L O2 SATURATION ARTERIAL (BEAKER) (test code = 386) 93.3 % 96.0 -97.0 L HCO3 ARTERIAL (BEAKER) (test code = 388) 27 mmol/L 21-29 BASE EXCESS ARTERIAL (BEAKER) (test code = 387) 0.1 mmol/L -2.0-3 .0 PATIENT TEMPERATURE (BEAKER) (test code = 1818) 37.5 C FIO2 (BEAKER) (test code = 1819) 100.0 % [id number] 21:47:00* Test Item Value Reference Range Interpretation Comments MAGNESIUM (BEAKER) (test code = 627) 2.2 mg/dL 1.6-2.6 Marketing Strategy Manager ID - [facility] METABOLIC [id number] 21:47:00* Test Item Value Reference Range Interpretation Comments SODIUM (BEAKER) (test code = 381) 134 meq/L 136-145 L POTASSIUM (BEAKER) (test code = 379) 3.6 meq/L 3.5-5.1 CHLORIDE (BEAKER) (test code = 382) 102 meq/L 98-107 CO2 (BEAKER) (test code = 355) 25 meq/L 22-29 BLOOD UREA NITROGEN (BEAKER) (test code = 354) 24 mg/dL 7-21 H CREATININE (BEAKER) (test code = 358) 1.56 mg/dL 0.57-1.25 H GLUCOSE RANDOM (BEAKER) (test code = 652) 186 mg/dL 70-105 H CALCIUM (BEAKER) (test code = 697) 8.4 mg/dL 8.4-10.2 EGFR (BEAKER) (test code = 1092) 47 mL/min/1.73 sq m ESTIMATED GFR IS NOT ACCURATE CREATININE CLEARANCE IN PREDICTING GLOMERULAR FILTRATION RATE. ESTIMATED GFR IS NOT APPLICABLE FOR DIALYSIS PATIENTS. Marketing Strategy Manager ID - [id number] 21:38:00* Test Item Value Reference Range Interpretation Comments PARTIAL THROMBOPLASTIN TIME (BEAKER) (test code = 760) 59.1 seconds 22.5-36.0 H POCT-GLUCOSE [id number] 21:10:00* Test Item Value Reference Range Interpretation Comments POC-GLUCOSE METER (BEAKER) (test code = 1538) 169 mg/dL 70-110 H : TESTED AT [address], [address]: Marketing Strategy Manager/Clinical Laboratory Technician ID = [id number] for CATE FILOMENA POCT-GLUCOSE [id number] 20:47:00* Test Item Value Reference Range Interpretation Comments POC-GLUCOSE METER (BEAKER) (test code = 1538) 182 mg/dL 70-110 H : TESTED AT [address], [address]: Marketing Strategy Manager/Clinical Laboratory Technician ID = [id number] for BRISEIDA-JENNIFER JHAVERI POCT-GLUCOSE [id number] 18:44:00* Test Item Value Reference Range Interpretation Comments POC-GLUCOSE METER (BEAKER) (test code = 1538) 176 mg/dL 70-110 H : TESTED AT [address], [address]: Marketing Strategy Manager/Clinical Laboratory Technician ID = [id number] for BRISEIDA-ITTARIANNE, JENNIFER POCT-GLUCOSE [id number] 17:31:00* Test Item Value Reference Range Interpretation Comments POC-GLUCOSE METER (BEAKER) (test code = 1538) 174 mg/dL 70-110 H : TESTED AT [address], [address]: Marketing Strategy Manager/Clinical Laboratory Technician ID = [id number] for BRISEIDA-SHAKILA, JENNIFER POCT-GLUCOSE [id number] 17:28:00* Test Item Value Reference Range Interpretation Comments POC-GLUCOSE METER (BEAKER) (test code = 1538) 172 mg/dL 70-110 H : TESTED AT [facility] [address] [facility] [place], [address]: Marketing Strategy Manager/Clinical Laboratory Technician ID = [id number] for JENNIFER KELLY CREATINE KINASE (CK)2019-12-27 16:13:00* Test Item Value Reference Range Interpretation Comments CREATINE KINASE TOTAL (BEAKER) (test code = 380) 254 U/L 29-20 0 H Marketing Strategy Manager ID - BSPOCT-GLUCOSE [id number] 16:10:00* Test Item Value Reference Range Interpretation Comments POC-GLUCOSE METER (BEAKER) (test code = 1538) 175 mg/dL 70-110 H : TESTED AT [facility] [address] [facility] [place], [address]: Marketing Strategy Manager/Clinical Laboratory Technician ID = [id number] for JENNIFER KELLY CALCIUM, [id number] 15:47:00* Test Item Value Reference Range Interpretation Comments CALCIUM IONIZED (BEAKER) (test code = 698) 1.05 mmol/L 1.12-1.27 L PH, BLOOD (BEAKER) (test code = 1810) 7.36 BLOOD GAS, [id number] 15:47:00* Test Item Value Reference Range Interpretation Comments PH ARTERIAL (BEAKER) (test code = 383) 7.36 7.35-7.45 PCO2 ARTERIAL (BEAKER) (test code = 384) 47 mmHg 35-45 H PO2 ARTERIAL (BEAKER) (test code = 385) 62 mmHg 80-90 L O2 SATURATION ARTERIAL (BEAKER) (test code = 386) 91.5 % 96.0 -97.0 L HCO3 ARTERIAL (BEAKER) (test code = 388) 26 mmol/L 21-29 BASE EXCESS ARTERIAL (BEAKER) (test code = 387) 0.3 mmol/L -2.0-3 .0 PATIENT TEMPERATURE (BEAKER) (test code = 1818) 36.5 C FIO2 (BEAKER) (test code = 1819) 100.0 % [id number] 15:32:00* Test Item Value Reference Range Interpretation Comments PHOSPHORUS (BEAKER) (test code = 604) 3.1 mg/dL 2.3-4.7 Marketing Strategy Manager ID - BSBASIC METABOLIC [id number] 15:32:00* Test Item Value Reference Range Interpretation Comments SODIUM (BEAKER) (test code = 381) 135 meq/L 136-145 L POTASSIUM (BEAKER) (test code = 379) 4.0 meq/L 3.5-5.1 CHLORIDE (BEAKER) (test code = 382) 103 meq/L 98-107 CO2 (BEAKER) (test code = 355) 27 meq/L 22-29 BLOOD UREA NITROGEN (BEAKER) (test code = 354) 23 mg/dL 7-21 H CREATININE (BEAKER) (test code = 358) 1.48 mg/dL 0.57-1.25 H GLUCOSE RANDOM (BEAKER) (test code = 652) 206 mg/dL 70-105 H CALCIUM (BEAKER) (test code = 697) 8.0 mg/dL 8.4-10.2 L EGFR (BEAKER) (test code = 1092) 50 mL/min/1.73 sq m ESTIMATED GFR IS NOT ACCURATE CREATININE CLEARANCE IN PREDICTING GLOMERULAR FILTRATION RATE. ESTIMATED GFR IS NOT APPLICABLE FOR DIALYSIS PATIENTS. Marketing Strategy Manager ID - BSLACTIC ACID, [id number] 15:28:00* Test Item Value Reference Range Interpretation Comments LACTATE BLOOD ARTERIAL (2) (BEAKER) (test code = 2874) 0.6 mmol/L 0.5-2.2 Marketing Strategy Manager ID - BSPOCT-GLUCOSE [id number] 15:07:00* Test Item Value Reference Range Interpretation Comments POC-GLUCOSE METER (BEAKER) (test code = 1538) 173 mg/dL 70-110 H : TESTED AT [facility] [address] [facility] [place], [address]: Marketing Strategy Manager/Clinical Laboratory Technician ID = [id number] for JENNIFER KELLY URINALYSIS W/ REFLEX URINE [id number] 14:30:00* Test Item Value Reference Range Interpretation Comments COLOR (BEAKER) (test code = 470) Brown CLARITY (BEAKER) (test code = 469) Cloudy SPECIFIC GRAVITY UA (BEAKER) (test code = 468) 1.025 1.001-1 .035 PH UA (BEAKER) (test code = 467) 6.5 5.0-8.0 PROTEIN UA (BEAKER) (test code = 464) 300 mg/dL Negative A GLUCOSE UA (BEAKER) (test code = 365) Negative Negative KETONES UA (BEAKER) (test code = 371) Trace Negative A BILIRUBIN UA (BEAKER) (test code = 462) Positive Negative A BLOOD UA (BEAKER) (test code = 461) Large Negative A NITRITE UA (BEAKER) (test code = 465) Negative Negative LEUKOCYTE ESTERASE UA (BEAKER) (test code = 466) Large Negat vince A UROBILINOGEN UA (BEAKER) (test code = 463) 2.0 mg/dL 0.2-1.0 H RBC UA (BEAKER) (test code = 519) 498 /HPF WBC UA (BEAKER) (test code = 520) 422 /HPF MUCUS (BEAKER) (test code = 1574) Rare SOURCE(BEAKER) (test code = 2795) Marketing Strategy Manager ID - [auto]Marketing Strategy Manager ID - techPOCT-GLUCOSE [id number] 13:58:00* Test Item Value Reference Range Interpretation Comments POC-GLUCOSE METER (BEAKER) (test code = 1538) 131 mg/dL 70-110 H : TESTED AT [address], [address]: Marketing Strategy Manager/Clinical Laboratory Technician ID = [id number] for JENNIFER KELLY [id number] 13:23:00* Test Item Value Reference Range Interpretation Comments PARTIAL THROMBOPLASTIN TIME (BEAKER) (test code = 760) 101.6 sec onds 22.5-36.0 H Discordant results compared to previous, clinical correlation required. POCT-GLUCOSE [id number] 11:58:00* Test Item Value Reference Range Interpretation Comments POC-GLUCOSE METER (BEAKER) (test code = 1538) 133 mg/dL 70-110 H : TESTED AT [address], [address]: Marketing Strategy Manager/Clinical Laboratory Technician ID = [id number] for JENNIFER KELLY POCT-GLUCOSE [id number] 11:40:00* Test Item Value Reference Range Interpretation Comments POC-GLUCOSE METER (BEAKER) (test code = 1538) 131 mg/dL 70-110 H : TESTED AT [address], [address]: Marketing Strategy Manager/Clinical Laboratory Technician ID = [id number] for JENNIFER KELLY Vitamin B12 and [id number] 10:47:00* Test Item Value Reference Range Interpretation Comments Vitamin B12 (test code = 2132-9) 782 pg/mL 213-816 Folate (test code = 2284-8) 5.30 ng/mL >=7.00 L LOY (test code = LOY) Marketing Strategy Manager ID - RESHMA C Lab Interpretation (test code = 50711-7) [facility] AND [id number] 10:47:00* Test Item Value Reference Range Interpretation Comments VITAMIN B12 (BEAKER) (test code = 774) 782 pg/mL 213-816 FOLATE (BEAKER) (test code = 362) 5.30 ng/mL >=7.00 L Marketing Strategy Manager ID - RESHMA CPOCT-GLUCOSE [id number] 10:35:00* Test Item Value Reference Range Interpretation Comments POC-GLUCOSE METER (BEAKER) (test code = 1538) 125 mg/dL 70-110 H : TESTED AT [facility] [address] [facility] [place], [address]: Marketing Strategy Manager/Clinical Laboratory Technician ID = [id number] for JENNIFER KELLY IRON, TIBC, % SAT. (WITHOUT FERRITIN)2019-12-27 10:12:00* Test Item Value Reference Range Interpretation Comments IRON (BEAKER) (test code = 547) 82.0 ug/dL 40.0-160.0 TOTAL IRON BINDING CAPACITY (BEAKER) (test code = 769) 131 ug/dL 250-450 L IRON % SATURATION (2) (BEAKER) (test code = 2590) 63 % 20-5 5 H Marketing Strategy Manager ID - JUN CBASIC METABOLIC [id number] 09:47:00* Test Item Value Reference Range Interpretation Comments SODIUM (BEAKER) (test code = 381) 136 meq/L 136-145 POTASSIUM (BEAKER) (test code = 379) 3.9 meq/L 3.5-5.1 Specimen slightly hemolyzed CHLORIDE (BEAKER) (test code = 382) 104 meq/L 98-107 CO2 (BEAKER) (test code = 355) 26 meq/L 22-29 BLOOD UREA NITROGEN (BEAKER) (test code = 354) 23 mg/dL 7-21 H CREATININE (BEAKER) (test code = 358) 1.56 mg/dL 0.57-1.25 H Specimen slightly hemolyzed GLUCOSE RANDOM (BEAKER) (test code = 652) 131 mg/dL 70-105 H CALCIUM (BEAKER) (test code = 697) 7.9 mg/dL 8.4-10.2 L EGFR (BEAKER) (test code = 1092) 47 mL/min/1.73 sq m ESTIMATED GFR IS NOT ACCURATE CREATININE CLEARANCE IN PREDICTING GLOMERULAR FILTRATION RATE. ESTIMATED GFR IS NOT APPLICABLE FOR DIALYSIS PATIENTS. Marketing Strategy Manager ID - RESHMA [id number] 09:29:00* Test Item Value Reference Range Interpretation Comments MAGNESIUM (BEAKER) (test code = 627) 2.1 mg/dL 1.6-2.6 Specimen slightly hemolyzed Marketing Strategy Manager ID - RESHMA CBLOOD GAS, [id number] 08:53:00* Test Item Value Reference Range Interpretation Comments PH ARTERIAL (BEAKER) (test code = 383) 7.34 7.35-7.45 L PCO2 ARTERIAL (BEAKER) (test code = 384) 48 mmHg 35-45 H PO2 ARTERIAL (BEAKER) (test code = 385) 78 mmHg 80-90 L O2 SATURATION ARTERIAL (BEAKER) (test code = 386) 95.0 % 96.0 -97.0 L HCO3 ARTERIAL (BEAKER) (test code = 388) 25 mmol/L 21-29 BASE EXCESS ARTERIAL (BEAKER) (test code = 387) -0.9 mmol/L -2.0-3 .0 PATIENT TEMPERATURE (BEAKER) (test code = 1818) 36.6 C FIO2 (BEAKER) (test code = 1819) 50.0 % [id number] 07:29:00* Test Item Value Reference Range Interpretation Comments PARTIAL THROMBOPLASTIN TIME (BEAKER) (test code = 760) 68.1 seconds 22.5-36.0 H [id number] 07:27:00* Test Item Value Reference Range Interpretation Comments FERRITIN (BEAKER) (test code = 361) 2479.71 ng/mL 5.00-275.00 H Marketing Strategy Manager ID - LUISA LPOCT-GLUCOSE [id number] 07:16:00* Test Item Value Reference Range Interpretation Comments POC-GLUCOSE METER (BEAKER) (test code = 1538) 130 mg/dL 70-110 H : TESTED AT [address], [address]: Marketing Strategy Manager/Clinical Laboratory Technician ID = [id number] for CARVELLIDA, KERRY POCT-GLUCOSE [id number] 06:50:00* Test Item Value Reference Range Interpretation Comments POC-GLUCOSE METER (BEAKER) (test code = 1538) 66 mg/dL 70-110 L : TESTED AT [facility] [address] [facility] [place], [address]: Marketing Strategy Manager/Clinical Laboratory Technician ID = [id number] for CARVELLIDA, KERRY POCT-GLUCOSE [id number] 05:14:00* Test Item Value Reference Range Interpretation Comments POC-GLUCOSE METER (BEAKER) (test code = 1538) 75 mg/dL 70-110 : TESTED AT [facility] [address] [facility] [place], [address]: Marketing Strategy Manager/Clinical Laboratory Technician ID = [id number] for CARVELLIDA, KERRY [id number] 04:36:00* Test Item Value Reference Range Interpretation Comments PHOSPHORUS (BEAKER) (test code = 604) 2.7 mg/dL 2.3-4.7 Marketing Strategy Manager ID - PIAYA LCOMPREHENSIVE METABOLIC [id number] 04:36:00* Test Item Value Reference Range Interpretation Comments TOTAL PROTEIN (BEAKER) (test code = 770) 6.5 gm/dL 6.0-8.3 ALBUMIN (BEAKER) (test code = 1145) 3.3 g/dL 3.5-5.0 L ALKALINE PHOSPHATASE (BEAKER) (test code = 346) 364 U/L 40-150 H BILIRUBIN TOTAL (BEAKER) (test code = 377) 0.9 mg/dL 0.2-1.2 SODIUM (BEAKER) (test code = 381) 135 meq/L 136-145 L POTASSIUM (BEAKER) (test code = 379) 3.7 meq/L 3.5-5.1 CHLORIDE (BEAKER) (test code = 382) 103 meq/L 98-107 CO2 (BEAKER) (test code = 355) 25 meq/L 22-29 BLOOD UREA NITROGEN (BEAKER) (test code = 354) 22 mg/dL 7-21 H CREATININE (BEAKER) (test code = 358) 1.52 mg/dL 0.57-1.25 H GLUCOSE RANDOM (BEAKER) (test code = 652) 93 mg/dL 70-105 CALCIUM (BEAKER) (test code = 697) 8.1 mg/dL 8.4-10.2 L AST (SGOT) (BEAKER) (test code = 353) 65 U/L 5-34 H ALT (SGPT) (BEAKER) (test code = 347) 62 U/L 6-55 H EGFR (BEAKER) (test code = 1092) 48 mL/min/1.73 sq m ESTIMATED GFR IS NOT ACCURATE CREATININE CLEARANCE IN PREDICTING GLOMERULAR FILTRATION RATE. ESTIMATED GFR IS NOT APPLICABLE FOR DIALYSIS PATIENTS. Marketing Strategy Manager ID - PIAYA LLACTATE DEHYDROGENASE (LDH)2019-12-27 04:36:00* Test Item Value Reference Range Interpretation Comments LACTATE DEHYDROGENASE (BEAKER) (test code = 635) 334 U/L 125-2 20 H Marketing Strategy Manager ID - PIAYA LC-REACTIVE [id number] 04:36:00* Test Item Value Reference Range Interpretation Comments C-REACTIVE PROTEIN (BEAKER) (test code = 676) 4.89 mg/dL 0.00-0.5 0 H Marketing Strategy Manager ID - PIAYA [id number] 04:34:00* Test Item Value Reference Range Interpretation Comments PROCALCITONIN (BEAKER) (test code = 3036) 2.02 ng/mL <0.05 H SEPSIS RISK (ng/mL)Low: 0.05-0.50Intermediate: 0.51-2.00High: > =2.01BLOOD GAS, [id number] 04:20:00* Test Item Value Reference Range Interpretation Comments PH ARTERIAL (BEAKER) (test code = 383) 7.33 7.35-7.45 L PCO2 ARTERIAL (BEAKER) (test code = 384) 50 mmHg 35-45 H PO2 ARTERIAL (BEAKER) (test code = 385) 164 mmHg 80-90 H O2 SATURATION ARTERIAL (BEAKER) (test code = 386) 98.9 % 96.0 -97.0 H HCO3 ARTERIAL (BEAKER) (test code = 388) 26 mmol/L 21-29 BASE EXCESS ARTERIAL (BEAKER) (test code = 387) -0.3 mmol/L -2.0-3 .0 PATIENT TEMPERATURE (BEAKER) (test code = 1818) 37.5 C FIO2 (BEAKER) (test code = 1819) 60.0 % POCT-GLUCOSE [id number] 03:45:00* Test Item Value Reference Range Interpretation Comments POC-GLUCOSE METER (BEAKER) (test code = 1538) 89 mg/dL 70-110 : TESTED AT [facility] [address] [facility] [place], [address]: Marketing Strategy Manager/Clinical Laboratory Technician ID = [id number] for KERRY HALL LACTIC ACID, [id number] 01:37:00* Test Item Value Reference Range Interpretation Comments LACTATE BLOOD ARTERIAL (2) (BEAKER) (test code = 2874) 0.7 mmol/L 0.5-2.2 Specimen moderately hemolyzed Marketing Strategy Manager ID - PIAYA LCBC W/PLT COUNT & AUTO [id number] 01:21:00* Test Item Value Reference Range Interpretation Comments WHITE BLOOD CELL COUNT (BEAKER) (test code = 775) 13.6 K/ L 3.5- 10.5 H RED BLOOD CELL COUNT (BEAKER) (test code = 761) 3.17 M/ L 4.63-6 .08 L HEMOGLOBIN (BEAKER) (test code = 410) 9.0 GM/DL 13.7-17.5 L HEMATOCRIT (BEAKER) (test code = 411) 28.7 % 40.1-51.0 L MEAN CORPUSCULAR VOLUME (BEAKER) (test code = 753) 90.5 fL 79. 0-92.2 MEAN CORPUSCULAR HEMOGLOBIN (BEAKER) (test code = 751) 28.4 pg 25.7-32.2 MEAN CORPUSCULAR HEMOGLOBIN CONC (BEAKER) (test code = 752) 31.4 GM/DL 32.3-36.5 L RED CELL DISTRIBUTION WIDTH (BEAKER) (test code = 412) 17.2 % 11.6-14.4 H PLATELET COUNT (BEAKER) (test code = 756) 107 K/CU MM 150-450 L MEAN PLATELET VOLUME (BEAKER) (test code = 754) 12.0 fL 9.4-12 .4 NUCLEATED RED BLOOD CELLS (BEAKER) (test code = 413) 2 /100 WBC 0 -0 H (CELLAVISION MANUAL DIFF)2019-12-27 01:21:00* Test Item Value Reference Range Interpretation Comments NEUTROPHILS - REL (CELLAVISION)(BEAKER) (test code = 2816) 66 % LYMPHOCYTES - REL (CELLAVISION)(BEAKER) (test code = 2817) 12 % MONOCYTES - REL (CELLAVISION)(BEAKER) (test code = 2818) 11 % EOSINOPHILS - REL (CELLAVISION)(BEAKER) (test code = 2819) 1 % METAMYELOCYTES - REL (CELLAVISION)(BEAKER) (test code = 2821) 5 % 0-0 H BANDS - REL (CELLAVISION)(BEAKER) (test code = 2826) 5 % 0 -10 NEUTROPHILS - ABS (CELLAVISION)(BEAKER) (test code = 2830) 8.98 K/ul 1.78-5.38 H LYMPHOCYTES - ABS (CELLAVISION)(BEAKER) (test code = 2831) 1.63 K/ul 1.32-3.57 MONOCYTES - ABS (CELLAVISION)(BEAKER) (test code = 2832) 1.50 K/uL 0.30-0.82 H EOSINOPHILS - ABS (CELLAVISION)(BEAKER) (test code = 2834) 0.14 K/uL 0.04-0.54 METAMYELOCYTES - ABS (CELLAVISION)(BEAKER) (test code = 2836 ) 0.68 K/uL 0.00-0.00 H BANDS - ABS (CELLAVISION)(BEAKER) (test code = 2840) 0.68 K/uL 0 .00-0.80 TOTAL COUNTED (BEAKER) (test code = 1351) 100 MANUAL NRBC PER 100 CELLS (BEAKER) (test code = 1353) 2 /100 WBC 0-0 H SMUDGE CELLS (BEAKER) (test code = 1371) Present GIANT PLATELETS (BEAKER) (test code = 313) Present POLYCHROMATOPHILLIC RBCS(BEAKER) (test code = 478) 2+ moderate ANISOCYTOSIS (BEAKER) (test code = 961) 2+ moderate MICROCYTES (BEAKER) (test code = 965) 1+ few MACROCYTES (BEAKER) (test code = 964) 2+ moderate PLATELET CONCENTRATION (CELLAVISION)(BEAKER) (test code = 3438) Dec reased Marketing Strategy Manager ID - Britton Werner comments: Slide comments: APTT 2019-12-27 00:58:00* Test Item Value Reference Range Interpretation Comments PARTIAL THROMBOPLASTIN TIME (BEAKER) (test code = 760) 58.3 seconds 22.5-36.0 H POCT-GLUCOSE [id number] 00:49:00* Test Item Value Reference Range Interpretation Comments POC-GLUCOSE METER (BEAKER) (test code = 1538) 104 mg/dL 70-110 : TESTED AT [facility] [address] [facility] [place], [address]: Marketing Strategy Manager/Clinical Laboratory Technician ID = [id number] for KERRY HALL [id number] 23:34:00* Test Item Value Reference Range Interpretation Comments MAGNESIUM (BEAKER) (test code = 627) 2.2 mg/dL 1.6-2.6 Marketing Strategy Manager ID Monisha MORAN LBASIC METABOLIC [id number] 23:34:00* Test Item Value Reference Range Interpretation Comments SODIUM (BEAKER) (test code = 381) 136 meq/L 136-145 POTASSIUM (BEAKER) (test code = 379) 3.8 meq/L 3.5-5.1 CHLORIDE (BEAKER) (test code = 382) 104 meq/L 98-107 CO2 (BEAKER) (test code = 355) 25 meq/L 22-29 BLOOD UREA NITROGEN (BEAKER) (test code = 354) 24 mg/dL 7-21 H CREATININE (BEAKER) (test code = 358) 1.40 mg/dL 0.57-1.25 H GLUCOSE RANDOM (BEAKER) (test code = 652) 119 mg/dL 70-105 H CALCIUM (BEAKER) (test code = 697) 7.8 mg/dL 8.4-10.2 L EGFR (BEAKER) (test code = 1092) 53 mL/min/1.73 sq m ESTIMATED GFR IS NOT ACCURATE CREATININE CLEARANCE IN PREDICTING GLOMERULAR FILTRATION RATE. ESTIMATED GFR IS NOT APPLICABLE FOR DIALYSIS PATIENTS. Marketing Strategy Manager ID Monisha DANIELSONLOOD GAS, [id number] 23:23:00* Test Item Value Reference Range Interpretation Comments PH ARTERIAL (BEAKER) (test code = 383) 7.33 7.35-7.45 L PCO2 ARTERIAL (BEAKER) (test code = 384) 51 mmHg 35-45 H PO2 ARTERIAL (BEAKER) (test code = 385) 103 mmHg 80-90 H O2 SATURATION ARTERIAL (BEAKER) (test code = 386) 97.3 % 96.0 -97.0 H HCO3 ARTERIAL (BEAKER) (test code = 388) 26 mmol/L 21-29 BASE EXCESS ARTERIAL (BEAKER) (test code = 387) 0.0 mmol/L -2.0-3 .0 PATIENT TEMPERATURE (BEAKER) (test code = 1818) 37.0 C FIO2 (BEAKER) (test code = 1819) 60.0 % POCT-GLUCOSE [id number] 22:57:00* Test Item Value Reference Range Interpretation Comments POC-GLUCOSE METER (BEAKER) (test code = 1538) 109 mg/dL 70-110 : TESTED AT [address], [address]: Marketing Strategy Manager/Clinical Laboratory Technician ID = [id number] for CARVELLIDA, KERRY POCT-GLUCOSE [id number] 20:51:00* Test Item Value Reference Range Interpretation Comments POC-GLUCOSE METER (BEAKER) (test code = 1538) 120 mg/dL 70-110 H : TESTED AT [address], [address]: Marketing Strategy Manager/Clinical Laboratory Technician ID = [id number] for CARVELLIDA, KERRY POCT-GLUCOSE [id number] 19:38:00* Test Item Value Reference Range Interpretation Comments POC-GLUCOSE METER (BEAKER) (test code = 1538) 119 mg/dL 70-110 H : TESTED AT [address], [address]: Marketing Strategy Manager/Clinical Laboratory Technician ID = [id number] for YOSI ECHOLS POCT-GLUCOSE [id number] 18:33:00* Test Item Value Reference Range Interpretation Comments POC-GLUCOSE METER (BEAKER) (test code = 1538) 127 mg/dL 70-110 H : TESTED AT [address], [address]: Marketing Strategy Manager/Clinical Laboratory Technician ID = [id number] for YOSI ECHOLS [id number] 17:58:00* Test Item Value Reference Range Interpretation Comments MAGNESIUM (BEAKER) (test code = 627) 2.1 mg/dL 1.6-2.6 Marketing Strategy Manager ID - DB(CELLAVISION MANUAL DIFF)2019-12-26 17:09:00* Test Item Value Reference Range Interpretation Comments NEUTROPHILS - REL (CELLAVISION)(BEAKER) (test code = 2816) 68 % LYMPHOCYTES - REL (CELLAVISION)(BEAKER) (test code = 2817) 11 % MONOCYTES - REL (CELLAVISION)(BEAKER) (test code = 2818) 1 % BASOPHILS - REL (CELLAVISION)(BEAKER) (test code = 2820) 1 % METAMYELOCYTES - REL (CELLAVISION)(BEAKER) (test code = 2821) 10 % 0-0 H MYELOCYTES - REL (CELLAVISION)(BEAKER) (test code = 2822) 1 % 0-0 H BANDS - REL (CELLAVISION)(BEAKER) (test code = 2826) 8 % 0 -10 NEUTROPHILS - ABS (CELLAVISION)(BEAKER) (test code = 2830) 8.57 K/ul 1.78-5.38 H LYMPHOCYTES - ABS (CELLAVISION)(BEAKER) (test code = 2831) 1.39 K/ul 1.32-3.57 MONOCYTES - ABS (CELLAVISION)(BEAKER) (test code = 2832) 0.13 K/uL 0.30-0.82 L BASOPHILS - ABS (CELLAVISION)(BEAKER) (test code = 2835) 0.13 K/uL 0.01-0.08 H METAMYELOCYTES - ABS (CELLAVISION)(BEAKER) (test code = 2836 ) 1.26 K/uL 0.00-0.00 H MYELOCYTES-ABS (CELLAVISION)(BEAKER) (test code = 2837) 0.13 K/uL 0.00-0.00 H BANDS - ABS (CELLAVISION)(BEAKER) (test code = 2840) 1.01 K/uL 0 .00-0.80 H TOTAL COUNTED (BEAKER) (test code = 1351) 100 MANUAL NRBC PER 100 CELLS (BEAKER) (test code = 1353) 3 /100 WBC 0-0 H GIANT PLATELETS (BEAKER) (test code = 313) Present VACUOLATED NEUTROPHILS (BEAKER) (test code = 483) Present POLYCHROMATOPHILLIC RBCS(BEAKER) (test code = 478) 1+ few ANISOCYTOSIS (BEAKER) (test code = 961) 2+ moderate MICROCYTES (BEAKER) (test code = 965) 2+ moderate BASOPHILIC STIPPLING (BEAKER) (test code = 473) Present PLATELET CONCENTRATION (CELLAVISION)(BEAKER) (test code = 3438) Dec reased Marketing Strategy Manager ID - Edi comments: Slide comments: [id number] 16:45:00* Test Item Value Reference Range Interpretation Comments PHOSPHORUS (BEAKER) (test code = 604) 3.8 mg/dL 2.3-4.7 Marketing Strategy Manager ID - DBBASIC METABOLIC [id number] 16:45:00* Test Item Value Reference Range Interpretation Comments SODIUM (BEAKER) (test code = 381) 136 meq/L 136-145 POTASSIUM (BEAKER) (test code = 379) 4.0 meq/L 3.5-5.1 CHLORIDE (BEAKER) (test code = 382) 103 meq/L 98-107 CO2 (BEAKER) (test code = 355) 26 meq/L 22-29 BLOOD UREA NITROGEN (BEAKER) (test code = 354) 25 mg/dL 7-21 H CREATININE (BEAKER) (test code = 358) 1.50 mg/dL 0.57-1.25 H GLUCOSE RANDOM (BEAKER) (test code = 652) 171 mg/dL 70-105 H CALCIUM (BEAKER) (test code = 697) 8.1 mg/dL 8.4-10.2 L EGFR (BEAKER) (test code = 1092) 49 mL/min/1.73 sq m ESTIMATED GFR IS NOT ACCURATE CREATININE CLEARANCE IN PREDICTING GLOMERULAR FILTRATION RATE. ESTIMATED GFR IS NOT APPLICABLE FOR DIALYSIS PATIENTS. Marketing Strategy Manager ID - DBLACTIC ACID, [id number] 16:40:00* Test Item Value Reference Range Interpretation Comments LACTATE BLOOD ARTERIAL (2) (BEAKER) (test code = 2874) 0.7 mmol/L 0.5-2.2 Marketing Strategy Manager ID - DBCBC W/PLT COUNT & AUTO [id number] 16:32:00* Test Item Value Reference Range Interpretation Comments WHITE BLOOD CELL COUNT (BEAKER) (test code = 775) 12.6 K/ L 3.5- 10.5 H RED BLOOD CELL COUNT (BEAKER) (test code = 761) 3.10 M/ L 4.63-6 .08 L HEMOGLOBIN (BEAKER) (test code = 410) 9.1 GM/DL 13.7-17.5 L HEMATOCRIT (BEAKER) (test code = 411) 28.3 % 40.1-51.0 L MEAN CORPUSCULAR VOLUME (BEAKER) (test code = 753) 91.3 fL 79. 0-92.2 MEAN CORPUSCULAR HEMOGLOBIN (BEAKER) (test code = 751) 29.4 pg 25.7-32.2 MEAN CORPUSCULAR HEMOGLOBIN CONC (BEAKER) (test code = 752) 32.2 GM/DL 32.3-36.5 L RED CELL DISTRIBUTION WIDTH (BEAKER) (test code = 412) 16.9 % 11.6-14.4 H PLATELET COUNT (BEAKER) (test code = 756) 107 K/CU MM 150-450 L MEAN PLATELET VOLUME (BEAKER) (test code = 754) 12.6 fL 9.4-12 .4 H NUCLEATED RED BLOOD CELLS (BEAKER) (test code = 413) 2 /100 WBC 0 -0 H [id number] 16:30:00* Test Item Value Reference Range Interpretation Comments PARTIAL THROMBOPLASTIN TIME (BEAKER) (test code = 760) 52.2 seconds 22.5-36.0 H BLOOD GAS, [id number] 16:15:00* Test Item Value Reference Range Interpretation Comments PH ARTERIAL (BEAKER) (test code = 383) 7.34 7.35-7.45 L PCO2 ARTERIAL (BEAKER) (test code = 384) 50 mmHg 35-45 H PO2 ARTERIAL (BEAKER) (test code = 385) 116 mmHg 80-90 H O2 SATURATION ARTERIAL (BEAKER) (test code = 386) 98.0 % 96.0 -97.0 H HCO3 ARTERIAL (BEAKER) (test code = 388) 26 mmol/L 21-29 BASE EXCESS ARTERIAL (BEAKER) (test code = 387) 0.1 mmol/L -2.0-3 .0 PATIENT TEMPERATURE (BEAKER) (test code = 1818) 36.5 C FIO2 (BEAKER) (test code = 1819) 65.0 % POCT-GLUCOSE [id number] 15:09:00* Test Item Value Reference Range Interpretation Comments POC-GLUCOSE METER (BEAKER) (test code = 1538) 179 mg/dL 70-110 H : TESTED AT [facility] [address] [facility], [address]: Marketing Strategy Manager/Clinical Laboratory Technician ID = [id number] for YOSI ECHOLS POCT-GLUCOSE [id number] 14:03:00* Test Item Value Reference Range Interpretation Comments POC-GLUCOSE METER (BEAKER) (test code = 1538) 186 mg/dL 70-110 H : TESTED AT [facility] [address] [facility] [place], [address]: Marketing Strategy Manager/Clinical Laboratory Technician ID = [id number] for YOSI ECHOLS BLOOD GAS, [id number] 13:56:00* Test Item Value Reference Range Interpretation Comments PH ARTERIAL (BEAKER) (test code = 383) 7.30 7.35-7.45 L PCO2 ARTERIAL (BEAKER) (test code = 384) 55 mmHg 35-45 H PO2 ARTERIAL (BEAKER) (test code = 385) 91 mmHg 80-90 H O2 SATURATION ARTERIAL (BEAKER) (test code = 386) 95.5 % 96.0 -97.0 L HCO3 ARTERIAL (BEAKER) (test code = 388) 26 mmol/L 21-29 BASE EXCESS ARTERIAL (BEAKER) (test code = 387) -0.4 mmol/L -2.0-3 .0 PATIENT TEMPERATURE (BEAKER) (test code = 1818) 38.0 C FIO2 (BEAKER) (test code = 1819) 65.0 % POCT-GLUCOSE [id number] 13:11:00* Test Item Value Reference Range Interpretation Comments POC-GLUCOSE METER (BEAKER) (test code = 1538) 190 mg/dL 70-110 H : TESTED AT [facility] [address] [facility] [place], [address]: Marketing Strategy Manager/Clinical Laboratory Technician ID = [id number] for YOSI ECHOLS BLOOD [id number] 13:01:00* Test Item Value Reference Range Interpretation Comments CULTURE (BEAKER) (test code = 1095) No growth in 5 days BLOOD [id number] 13:01:00* Test Item Value Reference Range Interpretation Comments CULTURE (BEAKER) (test code = 1095) No growth in 5 days Blood culture, routine [id number] 12:50:00* Test Item Value Reference Range Interpretation Comments Result (test code = 6463-4) [facility] [id number] 12:50:00 * Test Item Value Reference Range Interpretation Comments CULTURE (BEAKER) (test code = 1095) No growth POCT-GLUCOSE [id number] 12:18:00* Test Item Value Reference Range Interpretation Comments POC-GLUCOSE METER (BEAKER) (test code = 1538) 202 mg/dL 70-110 H : TESTED AT [address], [address]: Marketing Strategy Manager/Clinical Laboratory Technician ID = [id number] for YOSI ECHOLS BASIC METABOLIC [id number] 11:08:00* Test Item Value Reference Range Interpretation Comments SODIUM (BEAKER) (test code = 381) 134 meq/L 136-145 L POTASSIUM (BEAKER) (test code = 379) 4.0 meq/L 3.5-5.1 CHLORIDE (BEAKER) (test code = 382) 101 meq/L 98-107 CO2 (BEAKER) (test code = 355) 25 meq/L 22-29 BLOOD UREA NITROGEN (BEAKER) (test code = 354) 26 mg/dL 7-21 H CREATININE (BEAKER) (test code = 358) 1.64 mg/dL 0.57-1.25 H GLUCOSE RANDOM (BEAKER) (test code = 652) 291 mg/dL 70-105 H CALCIUM (BEAKER) (test code = 697) 8.1 mg/dL 8.4-10.2 L EGFR (BEAKER) (test code = 1092) 44 mL/min/1.73 sq m ESTIMATED GFR IS NOT ACCURATE CREATININE CLEARANCE IN PREDICTING GLOMERULAR FILTRATION RATE. ESTIMATED GFR IS NOT APPLICABLE FOR DIALYSIS PATIENTS. Marketing Strategy Manager ID - RESHMA CBLOOD GAS, [id number] 10:55:00* Test Item Value Reference Range Interpretation Comments PH ARTERIAL (BEAKER) (test code = 383) 7.29 7.35-7.45 L PCO2 ARTERIAL (BEAKER) (test code = 384) 60 mmHg 35-45 H PO2 ARTERIAL (BEAKER) (test code = 385) 77 mmHg 80-90 L O2 SATURATION ARTERIAL (BEAKER) (test code = 386) 94.0 % 96.0 -97.0 L HCO3 ARTERIAL (BEAKER) (test code = 388) 29 mmol/L 21-29 BASE EXCESS ARTERIAL (BEAKER) (test code = 387) 1.0 mmol/L -2.0-3 .0 PATIENT TEMPERATURE (BEAKER) (test code = 1818) 36.5 C FIO2 (BEAKER) (test code = 1819) 65.0 % CBC W/PLT COUNT & AUTO [id number] 10:12:00* Test Item Value Reference Range Interpretation Comments WHITE BLOOD CELL COUNT (BEAKER) (test code = 775) 13.3 K/ L 3.5- 10.5 H RED BLOOD CELL COUNT (BEAKER) (test code = 761) 3.40 M/ L 4.63-6 .08 L HEMOGLOBIN (BEAKER) (test code = 410) 9.6 GM/DL 13.7-17.5 L HEMATOCRIT (BEAKER) (test code = 411) 30.6 % 40.1-51.0 L MEAN CORPUSCULAR VOLUME (BEAKER) (test code = 753) 90.0 fL 79. 0-92.2 MEAN CORPUSCULAR HEMOGLOBIN (BEAKER) (test code = 751) 28.2 pg 25.7-32.2 MEAN CORPUSCULAR HEMOGLOBIN CONC (BEAKER) (test code = 752) 31.4 GM/DL 32.3-36.5 L RED CELL DISTRIBUTION WIDTH (BEAKER) (test code = 412) 16.4 % 11.6-14.4 H PLATELET COUNT (BEAKER) (test code = 756) 124 K/CU MM 150-450 L MEAN PLATELET VOLUME (BEAKER) (test code = 754) 13.2 fL 9.4-12 .4 H NUCLEATED RED BLOOD CELLS (BEAKER) (test code = 413) 3 /100 WBC 0 -0 H (CELLAVISION MANUAL DIFF)2019-12-26 10:12:00* Test Item Value Reference Range Interpretation Comments NEUTROPHILS - REL (CELLAVISION)(BEAKER) (test code = 2816) 63 % LYMPHOCYTES - REL (CELLAVISION)(BEAKER) (test code = 2817) 17 % MONOCYTES - REL (CELLAVISION)(BEAKER) (test code = 2818) 2 % METAMYELOCYTES - REL (CELLAVISION)(BEAKER) (test code = 2821) 6 % 0-0 H MYELOCYTES - REL (CELLAVISION)(BEAKER) (test code = 2822) 4 % 0-0 H BANDS - REL (CELLAVISION)(BEAKER) (test code = 2826) 7 % 0 -10 NEUTROPHILS - ABS (CELLAVISION)(BEAKER) (test code = 2830) 8.38 K/ul 1.78-5.38 H LYMPHOCYTES - ABS (CELLAVISION)(BEAKER) (test code = 2831) 2.26 K/ul 1.32-3.57 MONOCYTES - ABS (CELLAVISION)(BEAKER) (test code = 2832) 0.27 K/uL 0.30-0.82 L METAMYELOCYTES - ABS (CELLAVISION)(BEAKER) (test code = 2836 ) 0.80 K/uL 0.00-0.00 H MYELOCYTES-ABS (CELLAVISION)(BEAKER) (test code = 2837) 0.53 K/uL 0.00-0.00 H BANDS - ABS (CELLAVISION)(BEAKER) (test code = 2840) 0.93 K/uL 0 .00-0.80 H TOTAL COUNTED (BEAKER) (test code = 1351) 100 MANUAL NRBC PER 100 CELLS (BEAKER) (test code = 1353) 4 /100 WBC 0-0 H WBC MORPHOLOGY (BEAKER) (test code = 487) Normal PLT MORPHOLOGY (BEAKER) (test code = 486) Normal POLYCHROMATOPHILLIC RBCS(BEAKER) (test code = 478) 1+ few ANISOCYTOSIS (BEAKER) (test code = 961) 1+ few MICROCYTES (BEAKER) (test code = 965) 1+ few BASOPHILIC STIPPLING (BEAKER) (test code = 473) Present ARTIFACT (CELLAVISION)(BEAKER) (test code = 3432) Present PLATELET CONCENTRATION (CELLAVISION)(BEAKER) (test code = 3438) Dec reased Marketing Strategy Manager ID - [id number] ID - Carmen OverholtUser comments: Slide comments: ECG 12 [id number] 09:04:02Interface, External Ris In - 12/26/2019 9:04 AM CDTVentricular Rate 112 BPMAtrial Rate 112 BPMP-R Interval 160 msQRS Duration 72 msQ-T Interval 328 msQTC Calculation(Bazett) 447 msP [place] 35 degreesR [place] 7 degreesT [place] 34 degreesSinus tachycardiaLow voltage QRSBorderline criteria for Septal infarct , age undeterminedAbnormal ECGWhen compared with ECG of 88-Iji-7584Jhdndsojdpk rate has increasedBorderline criteria for septal infarct is new. Confirmed by Darek SCHERER, YAZMIN ([id number]) on 12/26/2019 9:04:01 [facility], [id number] 08:46:00* Test Item Value Reference Range Interpretation Comments PH ARTERIAL (BEAKER) (test code = 383) 7.31 7.35-7.45 L PCO2 ARTERIAL (BEAKER) (test code = 384) 54 mmHg 35-45 H PO2 ARTERIAL (BEAKER) (test code = 385) 56 mmHg 80-90 L O2 SATURATION ARTERIAL (BEAKER) (test code = 386) 88.0 % 96.0 -97.0 L HCO3 ARTERIAL (BEAKER) (test code = 388) 27 mmol/L 21-29 BASE EXCESS ARTERIAL (BEAKER) (test code = 387) -0.2 mmol/L -2.0-3 .0 PATIENT TEMPERATURE (BEAKER) (test code = 1818) 36.0 C FIO2 (BEAKER) (test code = 1819) 60.0 % POCT-GLUCOSE [id number] 08:40:00* Test Item Value Reference Range Interpretation Comments POC-GLUCOSE METER (BEAKER) (test code = 1538) 196 mg/dL 70-110 H : TESTED AT [place] [id number] [facility], [address]: Marketing Strategy Manager/Clinical Laboratory Technician ID = [id number] for YOSI ECHOLS POCT-GLUCOSE [id number] 07:20:00* Test Item Value Reference Range Interpretation Comments POC-GLUCOSE METER (BEAKER) (test code = 1538) 167 mg/dL 70-110 H : TESTED AT [place] [id number] [facility] [place], [address]: Marketing Strategy Manager/Clinical Laboratory Technician ID = [id number] for LILIANA DODSON [id number] 05:33:00* Test Item Value Reference Range Interpretation Comments PHOSPHORUS (BEAKER) (test code = 604) 3.0 mg/dL 2.3-4.7 Marketing Strategy Manager ID - LUISA [id number] 05:33:00* Test Item Value Reference Range Interpretation Comments MAGNESIUM (BEAKER) (test code = 627) 2.0 mg/dL 1.6-2.6 Marketing Strategy Manager ID - LUISA LCOMPREHENSIVE METABOLIC [id number] 05:33:00* Test Item Value Reference Range Interpretation Comments TOTAL PROTEIN (BEAKER) (test code = 770) 6.8 gm/dL 6.0-8.3 ALBUMIN (BEAKER) (test code = 1145) 3.0 g/dL 3.5-5.0 L ALKALINE PHOSPHATASE (BEAKER) (test code = 346) 365 U/L 40-150 H BILIRUBIN TOTAL (BEAKER) (test code = 377) 0.7 mg/dL 0.2-1.2 SODIUM (BEAKER) (test code = 381) 134 meq/L 136-145 L POTASSIUM (BEAKER) (test code = 379) 3.6 meq/L 3.5-5.1 CHLORIDE (BEAKER) (test code = 382) 101 meq/L 98-107 CO2 (BEAKER) (test code = 355) 24 meq/L 22-29 BLOOD UREA NITROGEN (BEAKER) (test code = 354) 26 mg/dL 7-21 H CREATININE (BEAKER) (test code = 358) 1.59 mg/dL 0.57-1.25 H GLUCOSE RANDOM (BEAKER) (test code = 652) 286 mg/dL 70-105 H CALCIUM (BEAKER) (test code = 697) 8.3 mg/dL 8.4-10.2 L AST (SGOT) (BEAKER) (test code = 353) 74 U/L 5-34 H ALT (SGPT) (BEAKER) (test code = 347) 73 U/L 6-55 H EGFR (BEAKER) (test code = 1092) 46 mL/min/1.73 sq m ESTIMATED GFR IS NOT ACCURATE CREATININE CLEARANCE IN PREDICTING GLOMERULAR FILTRATION RATE. ESTIMATED GFR IS NOT APPLICABLE FOR DIALYSIS PATIENTS. Marketing Strategy Manager ID - LUISA LCALCIUM, [id number] 05:18:00* Test Item Value Reference Range Interpretation Comments CALCIUM IONIZED (BEAKER) (test code = 698) 1.13 mmol/L 1.12-1.27 PH, BLOOD (BEAKER) (test code = 1810) 7.32 BLOOD GAS, [id number] 05:16:00* Test Item Value Reference Range Interpretation Comments PH ARTERIAL (BEAKER) (test code = 383) 7.33 7.35-7.45 L PCO2 ARTERIAL (BEAKER) (test code = 384) 53 mmHg 35-45 H PO2 ARTERIAL (BEAKER) (test code = 385) 84 mmHg 80-90 O2 SATURATION ARTERIAL (BEAKER) (test code = 386) 95.8 % 96.0 -97.0 L HCO3 ARTERIAL (BEAKER) (test code = 388) 27 mmol/L 21-29 BASE EXCESS ARTERIAL (BEAKER) (test code = 387) 0.6 mmol/L -2.0-3 .0 PATIENT TEMPERATURE (BEAKER) (test code = 1818) 36.5 C FIO2 (BEAKER) (test code = 1819) 50.0 % [id number] 05:13:00* Test Item Value Reference Range Interpretation Comments PARTIAL THROMBOPLASTIN TIME (BEAKER) (test code = 760) 67.0 seconds 22.5-36.0 H LACTIC ACID, [id number] 04:55:00* Test Item Value Reference Range Interpretation Comments LACTATE BLOOD ARTERIAL (2) (BEAKER) (test code = 2874) 0.8 mmol/L 0.5-2.2 Marketing Strategy Manager ID - PIAYA LPOCT-GLUCOSE [id number] 04:36:00* Test Item Value Reference Range Interpretation Comments POC-GLUCOSE METER (BEAKER) (test code = 1538) 275 mg/dL 70-110 H : TESTED AT [address], [address]: Marketing Strategy Manager/Clinical Laboratory Technician ID = [id number] for DODSON, LILIANA POCT-GLUCOSE [id number] 03:16:00* Test Item Value Reference Range Interpretation Comments POC-GLUCOSE METER (BEAKER) (test code = 1538) 241 mg/dL 70-110 H : TESTED AT [place] [id number] [facility] [place], [address]: Marketing Strategy Manager/Clinical Laboratory Technician ID = [id number] for DODSON, LILIANA BLOOD GAS, [id number] 02:14:00* Test Item Value Reference Range Interpretation Comments PH ARTERIAL (BEAKER) (test code = 383) 7.35 7.35-7.45 PCO2 ARTERIAL (BEAKER) (test code = 384) 46 mmHg 35-45 H PO2 ARTERIAL (BEAKER) (test code = 385) 116 mmHg 80-90 H O2 SATURATION ARTERIAL (BEAKER) (test code = 386) 98.2 % 96.0 -97.0 H HCO3 ARTERIAL (BEAKER) (test code = 388) 25 mmol/L 21-29 BASE EXCESS ARTERIAL (BEAKER) (test code = 387) -0.9 mmol/L -2.0-3 .0 PATIENT TEMPERATURE (BEAKER) (test code = 1818) 36.0 C FIO2 (BEAKER) (test code = 1819) 50.0 % POCT-GLUCOSE [id number] 01:31:00* Test Item Value Reference Range Interpretation Comments POC-GLUCOSE METER (BEAKER) (test code = 1538) 218 mg/dL 70-110 H : TESTED AT [address], [address]: Marketing Strategy Manager/Clinical Laboratory Technician ID = [id number] for LILIANA DODSON POCT-GLUCOSE [id number] 23:09:00* Test Item Value Reference Range Interpretation Comments POC-GLUCOSE METER (BEAKER) (test code = 1538) 160 mg/dL 70-110 H : TESTED AT [place] [id number] [facility] [place], [address]: Marketing Strategy Manager/Clinical Laboratory Technician ID = [id number] for BERTO DODSONDA BLOOD GAS, [id number] 21:52:00* Test Item Value Reference Range Interpretation Comments PH ARTERIAL (BEAKER) (test code = 383) 7.37 7.35-7.45 PCO2 ARTERIAL (BEAKER) (test code = 384) 46 mmHg 35-45 H PO2 ARTERIAL (BEAKER) (test code = 385) 54 mmHg 80-90 L O2 SATURATION ARTERIAL (BEAKER) (test code = 386) 88.5 % 96.0 -97.0 L HCO3 ARTERIAL (BEAKER) (test code = 388) 26 mmol/L 21-29 BASE EXCESS ARTERIAL (BEAKER) (test code = 387) 0.5 mmol/L -2.0-3 .0 PATIENT TEMPERATURE (BEAKER) (test code = 1818) 36.0 C FIO2 (BEAKER) (test code = 1819) 50.0 % POCT-GLUCOSE [id number] 21:27:00* Test Item Value Reference Range Interpretation Comments POC-GLUCOSE METER (BEAKER) (test code = 1538) 105 mg/dL 70-110 : TESTED AT [place] [id number] [facility] [place], [address]: Marketing Strategy Manager/Clinical Laboratory Technician ID = [id number] for LILIANA DODSON BASIC METABOLIC [id number] 21:27:00* Test Item Value Reference Range Interpretation Comments SODIUM (BEAKER) (test code = 381) 136 meq/L 136-145 POTASSIUM (BEAKER) (test code = 379) 3.6 meq/L 3.5-5.1 CHLORIDE (BEAKER) (test code = 382) 104 meq/L 98-107 CO2 (BEAKER) (test code = 355) 26 meq/L 22-29 BLOOD UREA NITROGEN (BEAKER) (test code = 354) 26 mg/dL 7-21 H CREATININE (BEAKER) (test code = 358) 1.53 mg/dL 0.57-1.25 H GLUCOSE RANDOM (BEAKER) (test code = 652) 116 mg/dL 70-105 H CALCIUM (BEAKER) (test code = 697) 8.7 mg/dL 8.4-10.2 EGFR (BEAKER) (test code = 1092) 48 mL/min/1.73 sq m ESTIMATED GFR IS NOT ACCURATE CREATININE CLEARANCE IN PREDICTING GLOMERULAR FILTRATION RATE. ESTIMATED GFR IS NOT APPLICABLE FOR DIALYSIS PATIENTS. Marketing Strategy Manager ID - NTPPOCT-GLUCOSE [id number] 21:00:00* Test Item Value Reference Range Interpretation Comments POC-GLUCOSE METER (BEAKER) (test code = 1538) 108 mg/dL 70-110 : TESTED AT [address], [address]: Marketing Strategy Manager/Clinical Laboratory Technician ID = [id number] for LILIANA DODSON POCT-GLUCOSE [id number] 20:01:00* Test Item Value Reference Range Interpretation Comments POC-GLUCOSE METER (BEAKER) (test code = 1538) 127 mg/dL 70-110 H : TESTED AT [address], [address]: Marketing Strategy Manager/Clinical Laboratory Technician ID = [id number] for KINZA YOSI (CELLAVISION MANUAL DIFF)2019-12-25 18:01:00* Test Item Value Reference Range Interpretation Comments NEUTROPHILS - REL (CELLAVISION)(BEAKER) (test code = 2816) 54 % LYMPHOCYTES - REL (CELLAVISION)(BEAKER) (test code = 2817) 5 % MONOCYTES - REL (CELLAVISION)(BEAKER) (test code = 2818) 4 % BASOPHILS - REL (CELLAVISION)(BEAKER) (test code = 2820) 2 % METAMYELOCYTES - REL (CELLAVISION)(BEAKER) (test code = 2821) 13 % 0-0 H MYELOCYTES - REL (CELLAVISION)(BEAKER) (test code = 2822) 2 % 0-0 H BANDS - REL (CELLAVISION)(BEAKER) (test code = 2826) 20 % 0 -10 H NEUTROPHILS - ABS (CELLAVISION)(BEAKER) (test code = 2830) 7.51 K/ul 1.78-5.38 H LYMPHOCYTES - ABS (CELLAVISION)(BEAKER) (test code = 2831) 0.70 K/ul 1.32-3.57 L MONOCYTES - ABS (CELLAVISION)(BEAKER) (test code = 2832) 0.56 K/uL 0.30-0.82 BASOPHILS - ABS (CELLAVISION)(BEAKER) (test code = 2835) 0.28 K/uL 0.01-0.08 H METAMYELOCYTES - ABS (CELLAVISION)(BEAKER) (test code = 2836 ) 1.81 K/uL 0.00-0.00 H MYELOCYTES-ABS (CELLAVISION)(BEAKER) (test code = 2837) 0.28 K/uL 0.00-0.00 H BANDS - ABS (CELLAVISION)(BEAKER) (test code = 2840) 2.78 K/uL 0 .00-0.80 H TOTAL COUNTED (BEAKER) (test code = 1351) 100 MANUAL NRBC PER 100 CELLS (BEAKER) (test code = 1353) 6 /100 WBC 0-0 H GIANT PLATELETS (BEAKER) (test code = 313) Present VACUOLATED NEUTROPHILS (BEAKER) (test code = 483) Present POLYCHROMATOPHILLIC RBCS(BEAKER) (test code = 478) 2+ moderate ANISOCYTOSIS (BEAKER) (test code = 961) 1+ few MICROCYTES (BEAKER) (test code = 965) 1+ few POIKILOCYTES (BEAKER) (test code = 966) 1+ few SPHEROCYTES (BEAKER) (test code = 768) 1+ few BASOPHILIC STIPPLING (BEAKER) (test code = 473) Present ARTIFACT (CELLAVISION)(BEAKER) (test code = 3432) Present PLATELET CONCENTRATION (CELLAVISION)(BEAKER) (test code = 3438) Dec reased Marketing Strategy Manager ID - StephanieUser comments: Slide comments: [id number] 17:42:00* Test Item Value Reference Range Interpretation Comments MAGNESIUM (BEAKER) (test code = 627) 2.3 mg/dL 1.6-2.6 Specimen moderately hemolyzed Marketing Strategy Manager ID - [id number] 17:42:00* Test Item Value Reference Range Interpretation Comments PHOSPHORUS (BEAKER) (test code = 604) 4.2 mg/dL 2.3-4.7 Specimen moderately hemolyzed Marketing Strategy Manager ID - NTPBASIC METABOLIC [id number] 17:42:00* Test Item Value Reference Range Interpretation Comments SODIUM (BEAKER) (test code = 381) 135 meq/L 136-145 L POTASSIUM (BEAKER) (test code = 379) 4.2 meq/L 3.5-5.1 Specimen moderately hemolyzed CHLORIDE (BEAKER) (test code = 382) 103 meq/L 98-107 CO2 (BEAKER) (test code = 355) 25 meq/L 22-29 BLOOD UREA NITROGEN (BEAKER) (test code = 354) 26 mg/dL 7-21 H CREATININE (BEAKER) (test code = 358) 1.63 mg/dL 0.57-1.25 H Specimen moderately hemolyzed GLUCOSE RANDOM (BEAKER) (test code = 652) 200 mg/dL 70-105 H CALCIUM (BEAKER) (test code = 697) 8.6 mg/dL 8.4-10.2 EGFR (BEAKER) (test code = 1092) 44 mL/min/1.73 sq m ESTIMATED GFR IS NOT ACCURATE CREATININE CLEARANCE IN PREDICTING GLOMERULAR FILTRATION RATE. ESTIMATED GFR IS NOT APPLICABLE FOR DIALYSIS PATIENTS. Marketing Strategy Manager ID - NTPBLOOD GAS, [id number] 17:39:00* Test Item Value Reference Range Interpretation Comments PH ARTERIAL (BEAKER) (test code = 383) 7.29 7.35-7.45 L PCO2 ARTERIAL (BEAKER) (test code = 384) 53 mmHg 35-45 H PO2 ARTERIAL (BEAKER) (test code = 385) 101 mmHg 80-90 H O2 SATURATION ARTERIAL (BEAKER) (test code = 386) 97.0 % 96.0 -97.0 HCO3 ARTERIAL (BEAKER) (test code = 388) 25 mmol/L 21-29 BASE EXCESS ARTERIAL (BEAKER) (test code = 387) -2.0 mmol/L -2.0-3 .0 PATIENT TEMPERATURE (BEAKER) (test code = 1818) 36.5 C FIO2 (BEAKER) (test code = 1819) 50.0 % LACTIC ACID, [id number] 17:34:00* Test Item Value Reference Range Interpretation Comments LACTATE BLOOD ARTERIAL (2) (BEAKER) (test code = 2874) 1.1 mmol/L 0.5-2.2 Specimen slightly hemolyzed Marketing Strategy Manager ID - NTPCBC W/PLT COUNT & AUTO [id number] 17:25:00* Test Item Value Reference Range Interpretation Comments WHITE BLOOD CELL COUNT (BEAKER) (test code = 775) 13.9 K/ L 3.5- 10.5 H RED BLOOD CELL COUNT (BEAKER) (test code = 761) 3.35 M/ L 4.63-6 .08 L HEMOGLOBIN (BEAKER) (test code = 410) 9.6 GM/DL 13.7-17.5 L HEMATOCRIT (BEAKER) (test code = 411) 30.2 % 40.1-51.0 L MEAN CORPUSCULAR VOLUME (BEAKER) (test code = 753) 90.1 fL 79. 0-92.2 MEAN CORPUSCULAR HEMOGLOBIN (BEAKER) (test code = 751) 28.7 pg 25.7-32.2 MEAN CORPUSCULAR HEMOGLOBIN CONC (BEAKER) (test code = 752) 31.8 GM/DL 32.3-36.5 L RED CELL DISTRIBUTION WIDTH (BEAKER) (test code = 412) 16.8 % 11.6-14.4 H PLATELET COUNT (BEAKER) (test code = 756) 143 K/CU MM 150-450 L MEAN PLATELET VOLUME (BEAKER) (test code = 754) 12.8 fL 9.4-12 .4 H NUCLEATED RED BLOOD CELLS (BEAKER) (test code = 413) 4 /100 WBC 0 -0 H POCT-GLUCOSE [id number] 16:18:00* Test Item Value Reference Range Interpretation Comments POC-GLUCOSE METER (BEAKER) (test code = 1538) 194 mg/dL 70-110 H : TESTED AT [place] [id number] [facility] [place], [address]: Marketing Strategy Manager/Clinical Laboratory Technician ID = [id number] for YOSI ECHOLS POCT-GLUCOSE [id number] 14:49:00* Test Item Value Reference Range Interpretation Comments POC-GLUCOSE METER (BEAKER) (test code = 1538) 167 mg/dL 70-110 H : TESTED AT [place] [id number] [facility] [place], [address]: Marketing Strategy Manager/Clinical Laboratory Technician ID = [id number] for YOSI ECHOLS BLOOD GAS, [id number] 14:47:00* Test Item Value Reference Range Interpretation Comments PH ARTERIAL (BEAKER) (test code = 383) 7.30 7.35-7.45 L PCO2 ARTERIAL (BEAKER) (test code = 384) 52 mmHg 35-45 H PO2 ARTERIAL (BEAKER) (test code = 385) 82 mmHg 80-90 O2 SATURATION ARTERIAL (BEAKER) (test code = 386) 94.8 % 96.0 -97.0 L HCO3 ARTERIAL (BEAKER) (test code = 388) 25 mmol/L 21-29 BASE EXCESS ARTERIAL (BEAKER) (test code = 387) -1.8 mmol/L -2.0-3 .0 PATIENT TEMPERATURE (BEAKER) (test code = 1818) 37.0 C FIO2 (BEAKER) (test code = 1819) 60.0 % BLOOD GAS, [id number] 13:29:00* Test Item Value Reference Range Interpretation Comments PH ARTERIAL (BEAKER) (test code = 383) 7.32 7.35-7.45 L PCO2 ARTERIAL (BEAKER) (test code = 384) 50 mmHg 35-45 H PO2 ARTERIAL (BEAKER) (test code = 385) 88 mmHg 80-90 O2 SATURATION ARTERIAL (BEAKER) (test code = 386) 95.9 % 96.0 -97.0 L HCO3 ARTERIAL (BEAKER) (test code = 388) 25 mmol/L 21-29 BASE EXCESS ARTERIAL (BEAKER) (test code = 387) -1.1 mmol/L -2.0-3 .0 PATIENT TEMPERATURE (BEAKER) (test code = 1818) 37.0 C FIO2 (BEAKER) (test code = 1819) 70.0 % POCT-GLUCOSE [id number] 13:11:00* Test Item Value Reference Range Interpretation Comments POC-GLUCOSE METER (BEAKER) (test code = 1538) 180 mg/dL 70-110 H : TESTED AT [address], [address]: Marketing Strategy Manager/Clinical Laboratory Technician ID = [id number] for YOSI ECHOLS 2D Echo W/Doppler(CW/PW/Color)2019-12-25 12:50:24Ejection FractionSLEH ECHO HEARTLAB MKCKESSON CPACSInterface, External Ris In - 12/25/2019 12:50 PM CDTTransthoracic Echocardiography Report (TTE) Demographics Patient Name PARISH, Date of Study 12/25/2019 KEMAL Polo Gender Male Visit Number [id number] Race Unknown Room Number 7A11 Number Date of 1965 Referring Lulu Alfaro Physician Age 53 year(s) 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 Global RV systolic function appears normal . L imited study. The left ventricle is chamber size (by PSLAX dimension) is normal (male - LVIDd 4.2-5.8cm) . Normal LV wall thickness. Difficult to assess segment al wall motion by standard apical and parasternal views By subcostal views overa ll LV systolic function appears normal. Estimated LVEF by qualitative assessmen t is normal (>60%) . Previous Study No prior exam available for comparison. Signature --- Findings Technica l Quality: Technically fair exam. Left Ventricle Limited study. The left ventricle is chamber size (by PSLAX dimension) is normal (male - LVIDd 4.2-5.8cm) . Normal LV wall thickness. Difficult to assess segmental wall mo tion by standard apical and parasternal views By subcosta l views overall LV systolic function appears normal. Estimated LVEF by qualitative assessment is normal (>60%) . Left Atrium LA size is normal (16-34 ml/m2) . Right Ventricle RV chamber size is normal . Global RV systolic function appears normal . Right Atrium RA cavity size is normal . Aortic Valve Normal AoV structure by available views. Mitral Valve The mitral valve is not well visualized. Tricuspid Valve TV structure is normal. Pulmonic Valve PV is not well visualized. Aorta Aortic root size (SInus of Valsalva diameter) is normal . Pericardium No significant pericardial effusion is visualized. IVC/SVC/PA/PV/Pleural The estimated RA pressure by IVC dynamics 5-10mmHg . Chambers/Structures Left Atrium LA Volume: 67.18 ml LA Area: 22.23 cm^2 LA Vol. Index: 30 ml/m^2 Left Ventricle LVIDd: 4.94 cm LV Septum Diastolic: 0.72 cm LV PW Diastolic: 0.8 cm LVOT Diameter: 2.23 cm Aorta Ao Root S of Anastasiia.: 3.36 cm Doppler/Quantitative Measurements Aortic Valve Peak Velocity: 1.56 m/s Mean Velocity: 1.15 m/s Peak Gradient: 9.69 mmHg Mean Gradient: 6.18 mmHg AV Area (continuity): 3.65 cm^2 AV VTI: 19.92 cm AV DVI: 0.94 LVOT Peak Velocity: 1.27 m/s Peak Gradient: 6.44 mmHg Mean Velocity: 0.88 m/s Mean Gradient: 3.67 mmHg LVOT Diameter: 2.23 cm LVOT VTI: 18.64 cm LVOT Area: 3.91 cm^2 LVOT SV:72.77 ml LVOT CO: 7.57 l/min LVOT CI: 3.41 l/min/m^2 [facility] [id number] 11:56:00* Test Item Value Reference Range Interpretation Comments POC-GLUCOSE METER (BEAKER) (test code = 1538) 139 mg/dL 70-110 H : TESTED AT [address], [address]: Marketing Strategy Manager/Clinical Laboratory Technician ID = [id number] for YOSI ECHOLS POCT-GLUCOSE [id number] 11:54:00* Test Item Value Reference Range Interpretation Comments POC-GLUCOSE METER (BEAKER) (test code = 1538) 212 mg/dL 70-110 H : TESTED AT [place] [id number] [facility] [place], [address]: Marketing Strategy Manager/Clinical Laboratory Technician ID = [id number] for YOSI ECHOLS [id number] 10:54:00* Test Item Value Reference Range Interpretation Comments FERRITIN (BEAKER) (test code = 361) 4601.39 ng/mL 5.00-275.00 H Marketing Strategy Manager ID - RESHMA CTHROMBOELASTOGRAPH (TEG)2019-12-25 09:23:00* Test Item Value Reference Range Interpretation Comments TEG ACTIVATED CLOTTING TIME (BEAKER) (test code = 1407) 53.4 minute s 4.0-7.0 H TEG FIBRINOGEN ACTIVITY (BEAKER) (test code = 1408) 6.7 degrees 61 .0-73.0 L TEG PLT. AGGREGATION (BEAKER) (test code = 1409) 44.0 MM 55.0- 65.0 L TGH ACTIVATED CLOTTING TIME (BEAKER) (test code = 1411) 11.7 minute s 4.0-7.0 H TGH FIBRINOGEN ACTIVITY (BEAKER) (test code = 1412) 61.8 degrees 61 .0-73.0 TGH PLT. AGGREGATION (BEAKER) (test code = 1413) 74.3 MM 55.0- 65.0 H [id number] 09:09:00* Test Item Value Reference Range Interpretation Comments MAGNESIUM (BEAKER) (test code = 627) 2.2 mg/dL 1.6-2.6 Marketing Strategy Manager ID - RESHMA CBASIC METABOLIC [id number] 09:09:00* Test Item Value Reference Range Interpretation Comments SODIUM (BEAKER) (test code = 381) 133 meq/L 136-145 L POTASSIUM (BEAKER) (test code = 379) 4.0 meq/L 3.5-5.1 CHLORIDE (BEAKER) (test code = 382) 101 meq/L 98-107 CO2 (BEAKER) (test code = 355) 24 meq/L 22-29 BLOOD UREA NITROGEN (BEAKER) (test code = 354) 28 mg/dL 7-21 H CREATININE (BEAKER) (test code = 358) 1.80 mg/dL 0.57-1.25 H GLUCOSE RANDOM (BEAKER) (test code = 652) 311 mg/dL 70-105 H CALCIUM (BEAKER) (test code = 697) 9.3 mg/dL 8.4-10.2 EGFR (BEAKER) (test code = 1092) 40 mL/min/1.73 sq m ESTIMATED GFR IS NOT ACCURATE CREATININE CLEARANCE IN PREDICTING GLOMERULAR FILTRATION RATE. ESTIMATED GFR IS NOT APPLICABLE FOR DIALYSIS PATIENTS. Marketing Strategy Manager ID - RESHMA CRAD, CHEST, 1 VIEW, NON [id number] 09:06:00Reason for exam:->covid ,pneumoniaShould this be performed at the bedside?->YesFINAL REPORT RAD, CHEST, 1 VIEW, NON DEPT INDICATION: covid ,pneumonia COMPARISON: Prior day's exam FINDINGS: Portable frontal view of the chest. IMPRESSION: Support Lines: Stable. Lungs and pleura: Decreased airs pace and pleural opacities. No pneumothorax.Heart and mediastinum: Stable contou rs. Stable surgical changes.Additional findings: None. Signed: Yosi Vidal Verified Date/Time: 12/25/2019 09:06:49 Reading Location: [facility] C013V Neuro Reading Room Electronically signed by: YOSI VIDAL MD on 09:06 AM BLOOD GAS, [id number] 08:57:00* Test Item Value Reference Range Interpretation Comments PH ARTERIAL (BEAKER) (test code = 383) 7.29 7.35-7.45 L PCO2 ARTERIAL (BEAKER) (test code = 384) 53 mmHg 35-45 H PO2 ARTERIAL (BEAKER) (test code = 385) 92 mmHg 80-90 H O2 SATURATION ARTERIAL (BEAKER) (test code = 386) 96.1 % 96.0 -97.0 HCO3 ARTERIAL (BEAKER) (test code = 388) 25 mmol/L 21-29 BASE EXCESS ARTERIAL (BEAKER) (test code = 387) -2.0 mmol/L -2.0-3 .0 PATIENT TEMPERATURE (BEAKER) (test code = 1818) 37.0 C FIO2 (BEAKER) (test code = 1819) 70.0 % POCT-GLUCOSE [id number] 08:48:00* Test Item Value Reference Range Interpretation Comments POC-GLUCOSE METER (BEAKER) (test code = 1538) 258 mg/dL 70-110 H : TESTED AT [address], [address]: Marketing Strategy Manager/Clinical Laboratory Technician ID = [id number] for YOSI ECHOLS CBC W/PLT COUNT & AUTO [id number] 08:18:00* Test Item Value Reference Range Interpretation Comments WHITE BLOOD CELL COUNT (BEAKER) (test code = 775) 17.0 K/ L 3.5- 10.5 H RED BLOOD CELL COUNT (BEAKER) (test code = 761) 3.74 M/ L 4.63-6 .08 L HEMOGLOBIN (BEAKER) (test code = 410) 10.6 GM/DL 13.7-17.5 L HEMATOCRIT (BEAKER) (test code = 411) 33.1 % 40.1-51.0 L MEAN CORPUSCULAR VOLUME (BEAKER) (test code = 753) 88.5 fL 79. 0-92.2 MEAN CORPUSCULAR HEMOGLOBIN (BEAKER) (test code = 751) 28.3 pg 25.7-32.2 MEAN CORPUSCULAR HEMOGLOBIN CONC (BEAKER) (test code = 752) 32.0 GM/DL 32.3-36.5 L RED CELL DISTRIBUTION WIDTH (BEAKER) (test code = 412) 16.1 % 11.6-14.4 H PLATELET COUNT (BEAKER) (test code = 756) 120 K/CU MM 150-450 L MEAN PLATELET VOLUME (BEAKER) (test code = 754) 13.0 fL 9.4-12 .4 H NUCLEATED RED BLOOD CELLS (BEAKER) (test code = 413) 6 /100 WBC 0 -0 H (CELLAVISION MANUAL DIFF)2019-12-25 08:18:00* Test Item Value Reference Range Interpretation Comments NEUTROPHILS - REL (CELLAVISION)(BEAKER) (test code = 2816) 60 % LYMPHOCYTES - REL (CELLAVISION)(BEAKER) (test code = 2817) 9 % MONOCYTES - REL (CELLAVISION)(BEAKER) (test code = 2818) 6 % METAMYELOCYTES - REL (CELLAVISION)(BEAKER) (test code = 2821) 3 % 0-0 H MYELOCYTES - REL (CELLAVISION)(BEAKER) (test code = 2822) 2 % 0-0 H BANDS - REL (CELLAVISION)(BEAKER) (test code = 2826) 20 % 0 -10 H NEUTROPHILS - ABS (CELLAVISION)(BEAKER) (test code = 2830) 10.20 K/ul 1.78-5.38 H LYMPHOCYTES - ABS (CELLAVISION)(BEAKER) (test code = 2831) 1.53 K/ul 1.32-3.57 MONOCYTES - ABS (CELLAVISION)(BEAKER) (test code = 2832) 1.02 K/uL 0.30-0.82 H METAMYELOCYTES - ABS (CELLAVISION)(BEAKER) (test code = 2836 ) 0.51 K/uL 0.00-0.00 H MYELOCYTES-ABS (CELLAVISION)(BEAKER) (test code = 2837) 0.34 K/uL 0.00-0.00 H BANDS - ABS (CELLAVISION)(BEAKER) (test code = 2840) 3.40 K/uL 0 .00-0.80 H TOTAL COUNTED (BEAKER) (test code = 1351) 100 MANUAL NRBC PER 100 CELLS (BEAKER) (test code = 1353) 4 /100 WBC 0-0 H WBC MORPHOLOGY (BEAKER) (test code = 487) Normal GIANT PLATELETS (BEAKER) (test code = 313) Present LARGE PLT(BEAKER) (test code = 2156) Present POLYCHROMATOPHILLIC RBCS(BEAKER) (test code = 478) 2+ moderate ANISOCYTOSIS (BEAKER) (test code = 961) 2+ moderate MICROCYTES (BEAKER) (test code = 965) 1+ few MACROCYTES (BEAKER) (test code = 964) 2+ moderate POIKILOCYTES (BEAKER) (test code = 966) 1+ few OVALOCYTES (BEAKER) (test code = 477) 1+ few ARTIFACT (CELLAVISION)(BEAKER) (test code = 3432) Present PLATELET CONCENTRATION (CELLAVISION)(BEAKER) (test code = 3438) Dec reased Marketing Strategy Manager ID - [id number] ID - Kun Schmitt comments: Slide comments: POCT-GLUCOSE [id number] 07:05:00* Test Item Value Reference Range Interpretation Comments POC-GLUCOSE METER (BEAKER) (test code = 1538) 219 mg/dL 70-110 H : TESTED AT [address], [address]: Marketing Strategy Manager/Clinical Laboratory Technician ID = [id number] for LILIANA ODDSON [id number] 06:33:00* Test Item Value Reference Range Interpretation Comments PARTIAL THROMBOPLASTIN TIME (BEAKER) (test code = 760) 71.1 seconds 22.5-36.0 H POCT-GLUCOSE [id number] 05:24:00* Test Item Value Reference Range Interpretation Comments POC-GLUCOSE METER (BEAKER) (test code = 1538) 192 mg/dL 70-110 H : TESTED AT [place] [id number] [facility] [place], [address]: Marketing Strategy Manager/Clinical Laboratory Technician ID = [id number] for LILIANA DODSON [id number] 04:28:00* Test Item Value Reference Range Interpretation Comments PROCALCITONIN (BEAKER) (test code = 3036) 6.31 ng/mL <0.05 H SEPSIS RISK (ng/mL)Low: 0.05-0.50Intermediate: 0.51-2.00High: > =2.01PROTHROMBIN TIME/[id number] 03:59:00* Test Item Value Reference Range Interpretation Comments PROTIME (BEAKER) (test code = 759) 15.3 seconds 11.9-14.2 H INR (BEAKER) (test code = 370) 1.2 <=5.9 Effective 11/04/2018: PT Reference Range ChangeNew: 11.9-14.2 Previous: 11.7-14. 7RECOMMENDED COUMADIN/WARFARIN INR THERAPY RANGESSTANDARD DOSE: 2.0-3.0 Include s: PROPHYLAXIS for venous thrombosis, systemic embolization; TREATMENT for venou s thrombosis and/or pulmonary embolus.HIGH RISK: Target INR is 2.5-3.5 for patie nts wiht mechanical heart valves.[id number] 03:56:00* Test Item Value Reference Range Interpretation Comments PHOSPHORUS (BEAKER) (test code = 604) 4.1 mg/dL 2.3-4.7 Marketing Strategy Manager ID - PIAYA [id number] 03:56:00* Test Item Value Reference Range Interpretation Comments MAGNESIUM (BEAKER) (test code = 627) 2.3 mg/dL 1.6-2.6 Marketing Strategy Manager ID - PIAYA LCOMPREHENSIVE METABOLIC [id number] 03:56:00* Test Item Value Reference Range Interpretation Comments TOTAL PROTEIN (BEAKER) (test code = 770) 6.9 gm/dL 6.0-8.3 ALBUMIN (BEAKER) (test code = 1145) 2.6 g/dL 3.5-5.0 L ALKALINE PHOSPHATASE (BEAKER) (test code = 346) 389 U/L 40-150 H BILIRUBIN TOTAL (BEAKER) (test code = 377) 0.8 mg/dL 0.2-1.2 SODIUM (BEAKER) (test code = 381) 134 meq/L 136-145 L POTASSIUM (BEAKER) (test code = 379) 3.8 meq/L 3.5-5.1 CHLORIDE (BEAKER) (test code = 382) 101 meq/L 98-107 CO2 (BEAKER) (test code = 355) 25 meq/L 22-29 BLOOD UREA NITROGEN (BEAKER) (test code = 354) 27 mg/dL 7-21 H CREATININE (BEAKER) (test code = 358) 1.77 mg/dL 0.57-1.25 H GLUCOSE RANDOM (BEAKER) (test code = 652) 204 mg/dL 70-105 H CALCIUM (BEAKER) (test code = 697) 8.3 mg/dL 8.4-10.2 L AST (SGOT) (BEAKER) (test code = 353) 104 U/L 5-34 H ALT (SGPT) (BEAKER) (test code = 347) 89 U/L 6-55 H EGFR (BEAKER) (test code = 1092) 40 mL/min/1.73 sq m ESTIMATED GFR IS NOT ACCURATE CREATININE CLEARANCE IN PREDICTING GLOMERULAR FILTRATION RATE. ESTIMATED GFR IS NOT APPLICABLE FOR DIALYSIS PATIENTS. Marketing Strategy Manager ID - PIAYA LLACTATE DEHYDROGENASE (LDH)2019-12-25 03:56:00* Test Item Value Reference Range Interpretation Comments LACTATE DEHYDROGENASE (BEAKER) (test code = 635) 463 U/L 125-2 20 H Marketing Strategy Manager ID - PIAYA LC-REACTIVE [id number] 03:56:00* Test Item Value Reference Range Interpretation Comments C-REACTIVE PROTEIN (BEAKER) (test code = 676) 16.36 mg/dL 0.00-0.5 0 H Marketing Strategy Manager ID - PIAYA LLACTIC ACID, [id number] 03:49:00* Test Item Value Reference Range Interpretation Comments LACTATE BLOOD ARTERIAL (2) (BEAKER) (test code = 2874) 1.3 mmol/L 0.5-2.2 Marketing Strategy Manager ID - PIAYA LCALCIUM, [id number] 03:36:00* Test Item Value Reference Range Interpretation Comments CALCIUM IONIZED (BEAKER) (test code = 698) 1.09 mmol/L 1.12-1.27 L PH, BLOOD (BEAKER) (test code = 1810) 7.37 BLOOD GAS, [id number] 03:36:00* Test Item Value Reference Range Interpretation Comments PH ARTERIAL (BEAKER) (test code = 383) 7.37 7.35-7.45 PCO2 ARTERIAL (BEAKER) (test code = 384) 43 mmHg 35-45 PO2 ARTERIAL (BEAKER) (test code = 385) 78 mmHg 80-90 L O2 SATURATION ARTERIAL (BEAKER) (test code = 386) 95.1 % 96.0 -97.0 L HCO3 ARTERIAL (BEAKER) (test code = 388) 25 mmol/L 21-29 BASE EXCESS ARTERIAL (BEAKER) (test code = 387) -0.9 mmol/L -2.0-3 .0 PATIENT TEMPERATURE (BEAKER) (test code = 1818) 37.0 C FIO2 (BEAKER) (test code = 1819) 70.0 % POCT-GLUCOSE [id number] 03:24:00* Test Item Value Reference Range Interpretation Comments POC-GLUCOSE METER (BEAKER) (test code = 1538) 192 mg/dL 70-110 H : TESTED AT [address], [address]: Marketing Strategy Manager/Clinical Laboratory Technician ID = [id number] for LILIANA DODSON BASIC METABOLIC [id number] 22:50:00* Test Item Value Reference Range Interpretation Comments SODIUM (BEAKER) (test code = 381) 136 meq/L 136-145 POTASSIUM (BEAKER) (test code = 379) 3.8 meq/L 3.5-5.1 CHLORIDE (BEAKER) (test code = 382) 104 meq/L 98-107 CO2 (BEAKER) (test code = 355) 23 meq/L 22-29 BLOOD UREA NITROGEN (BEAKER) (test code = 354) 28 mg/dL 7-21 H CREATININE (BEAKER) (test code = 358) 1.66 mg/dL 0.57-1.25 H GLUCOSE RANDOM (BEAKER) (test code = 652) 188 mg/dL 70-105 H CALCIUM (BEAKER) (test code = 697) 7.8 mg/dL 8.4-10.2 L EGFR (BEAKER) (test code = 1092) 43 mL/min/1.73 sq m ESTIMATED GFR IS NOT ACCURATE CREATININE CLEARANCE IN PREDICTING GLOMERULAR FILTRATION RATE. ESTIMATED GFR IS NOT APPLICABLE FOR DIALYSIS PATIENTS. Marketing Strategy Manager ID - DBBLOOD GAS, [id number] 22:42:00* Test Item Value Reference Range Interpretation Comments PH ARTERIAL (BEAKER) (test code = 383) 7.38 7.35-7.45 PCO2 ARTERIAL (BEAKER) (test code = 384) 44 mmHg 35-45 PO2 ARTERIAL (BEAKER) (test code = 385) 63 mmHg 80-90 L O2 SATURATION ARTERIAL (BEAKER) (test code = 386) 91.7 % 96.0 -97.0 L HCO3 ARTERIAL (BEAKER) (test code = 388) 25 mmol/L 21-29 BASE EXCESS ARTERIAL (BEAKER) (test code = 387) 0.0 mmol/L -2.0-3 .0 PATIENT TEMPERATURE (BEAKER) (test code = 1818) 37.0 C FIO2 (BEAKER) (test code = 1819) 60.0 % [id number] 21:20:00* Test Item Value Reference Range Interpretation Comments PHOSPHORUS (BEAKER) (test code = 604) 3.9 mg/dL 2.3-4.7 Marketing Strategy Manager ID - [id number] 21:20:00* Test Item Value Reference Range Interpretation Comments MAGNESIUM (BEAKER) (test code = 627) 2.1 mg/dL 1.6-2.6 Marketing Strategy Manager ID - BSPOCT-GLUCOSE [id number] 21:06:00* Test Item Value Reference Range Interpretation Comments POC-GLUCOSE METER (BEAKER) (test code = 1538) 149 mg/dL 70-110 H : TESTED AT [address], [address]: Marketing Strategy Manager/Clinical Laboratory Technician ID = [id number] for LILIANA DODSON [id number] 19:42:00* Test Item Value Reference Range Interpretation Comments Glucose (test code = 2345-7) 113 mg/dL 70-105 H LOY (test code = LOY) Marketing Strategy Manager ID - DB Lab Interpretation (test code = 95492-6) [facility] 19:42:[facility]* Test Item Value Reference Range Interpretation Comments GLUCOSE RANDOM (BEAKER) (test code = 652) 113 mg/dL 70-105 H Marketing Strategy Manager ID - DBPOCT-GLUCOSE [id number] 18:15:00* Test Item Value Reference Range Interpretation Comments POC-GLUCOSE METER (BEAKER) (test code = 1538) 88 mg/dL 70-110 : TESTED AT [address], [address]: Marketing Strategy Manager/Clinical Laboratory Technician ID = [id number] for JEREMY SCHMID (CELLAVISION MANUAL DIFF)2019-12-24 16:50:00* Test Item Value Reference Range Interpretation Comments NEUTROPHILS - REL (CELLAVISION)(BEAKER) (test code = 2816) 64 % LYMPHOCYTES - REL (CELLAVISION)(BEAKER) (test code = 2817) 9 % MONOCYTES - REL (CELLAVISION)(BEAKER) (test code = 2818) 3 % EOSINOPHILS - REL (CELLAVISION)(BEAKER) (test code = 2819) 3 % METAMYELOCYTES - REL (CELLAVISION)(BEAKER) (test code = 2821) 6 % 0-0 H MYELOCYTES - REL (CELLAVISION)(BEAKER) (test code = 2822) 1 % 0-0 H BANDS - REL (CELLAVISION)(BEAKER) (test code = 2826) 14 % 0 -10 H NEUTROPHILS - ABS (CELLAVISION)(BEAKER) (test code = 2830) 12.93 K/ul 1.78-5.38 H LYMPHOCYTES - ABS (CELLAVISION)(BEAKER) (test code = 2831) 1.82 K/ul 1.32-3.57 MONOCYTES - ABS (CELLAVISION)(BEAKER) (test code = 2832) 0.61 K/uL 0.30-0.82 EOSINOPHILS - ABS (CELLAVISION)(BEAKER) (test code = 2834) 0.61 K/uL 0.04-0.54 H METAMYELOCYTES - ABS (CELLAVISION)(BEAKER) (test code = 2836 ) 1.21 K/uL 0.00-0.00 H MYELOCYTES-ABS (CELLAVISION)(BEAKER) (test code = 2837) 0.20 K/uL 0.00-0.00 H BANDS - ABS (CELLAVISION)(BEAKER) (test code = 2840) 2.83 K/uL 0 .00-0.80 H TOTAL COUNTED (BEAKER) (test code = 1351) 100 MANUAL NRBC PER 100 CELLS (BEAKER) (test code = 1353) 14 /100 WBC 0-0 H GIANT PLATELETS (BEAKER) (test code = 313) Present VACUOLATED NEUTROPHILS (BEAKER) (test code = 483) Present POLYCHROMATOPHILLIC RBCS(BEAKER) (test code = 478) 2+ moderate ANISOCYTOSIS (BEAKER) (test code = 961) 3+ many MICROCYTES (BEAKER) (test code = 965) 3+ many POIKILOCYTES (BEAKER) (test code = 966) 1+ few SPHEROCYTES (BEAKER) (test code = 768) 1+ few TEAR DROP CELLS (BEAKER) (test code = 481) 1+ few ARTIFACT (CELLAVISION)(BEAKER) (test code = 3432) Present PLATELET CONCENTRATION (CELLAVISION)(BEAKER) (test code = 3438) Heather quate Marketing Strategy Manager ID - [id number] ID - StephanchitraColton comments: Slide comments: BASIC METABOLIC [id number] 16:24:00* Test Item Value Reference Range Interpretation Comments SODIUM (BEAKER) (test code = 381) 138 meq/L 136-145 POTASSIUM (BEAKER) (test code = 379) 3.6 meq/L 3.5-5.1 CHLORIDE (BEAKER) (test code = 382) 105 meq/L 98-107 CO2 (BEAKER) (test code = 355) 24 meq/L 22-29 BLOOD UREA NITROGEN (BEAKER) (test code = 354) 25 mg/dL 7-21 H CREATININE (BEAKER) (test code = 358) 1.64 mg/dL 0.57-1.25 H GLUCOSE RANDOM (BEAKER) (test code = 652) 128 mg/dL 70-105 H CALCIUM (BEAKER) (test code = 697) 8.7 mg/dL 8.4-10.2 EGFR (BEAKER) (test code = 1092) 44 mL/min/1.73 sq m ESTIMATED GFR IS NOT ACCURATE CREATININE CLEARANCE IN PREDICTING GLOMERULAR FILTRATION RATE. ESTIMATED GFR IS NOT APPLICABLE FOR DIALYSIS PATIENTS. Marketing Strategy Manager ID - BSLACTIC ACID, [id number] 16:21:00* Test Item Value Reference Range Interpretation Comments LACTATE BLOOD ARTERIAL (2) (BEAKER) (test code = 2874) 1.8 mmol/L 0.5-2.2 Specimen slightly hemolyzed Marketing Strategy Manager ID - BSCBC W/PLT COUNT & AUTO [id number] 16:19:00* Test Item Value Reference Range Interpretation Comments WHITE BLOOD CELL COUNT (BEAKER) (test code = 775) 20.2 K/ L 3.5- 10.5 H RED BLOOD CELL COUNT (BEAKER) (test code = 761) 4.47 M/ L 4.63-6 .08 L HEMOGLOBIN (BEAKER) (test code = 410) 12.3 GM/DL 13.7-17.5 L HEMATOCRIT (BEAKER) (test code = 411) 39.3 % 40.1-51.0 L MEAN CORPUSCULAR VOLUME (BEAKER) (test code = 753) 87.9 fL 79. 0-92.2 MEAN CORPUSCULAR HEMOGLOBIN (BEAKER) (test code = 751) 27.5 pg 25.7-32.2 MEAN CORPUSCULAR HEMOGLOBIN CONC (BEAKER) (test code = 752) 31.3 GM/DL 32.3-36.5 L RED CELL DISTRIBUTION WIDTH (BEAKER) (test code = 412) 16.0 % 11.6-14.4 H PLATELET COUNT (BEAKER) (test code = 756) 150 K/CU MM 150-450 MEAN PLATELET VOLUME (BEAKER) (test code = 754) 13.3 fL 9.4-12 .4 H NUCLEATED RED BLOOD CELLS (BEAKER) (test code = 413) 11 /100 WBC 0 -0 H BLOOD GAS, [id number] 15:56:00* Test Item Value Reference Range Interpretation Comments PH ARTERIAL (BEAKER) (test code = 383) 7.35 7.35-7.45 PCO2 ARTERIAL (BEAKER) (test code = 384) 40 mmHg 35-45 PO2 ARTERIAL (BEAKER) (test code = 385) 66 mmHg 80-90 L O2 SATURATION ARTERIAL (BEAKER) (test code = 386) 91.6 % 96.0 -97.0 L HCO3 ARTERIAL (BEAKER) (test code = 388) 22 mmol/L 21-29 BASE EXCESS ARTERIAL (BEAKER) (test code = 387) -3.5 mmol/L -2.0-3 .0 L PATIENT TEMPERATURE (BEAKER) (test code = 1818) 37.5 C FIO2 (BEAKER) (test code = 1819) 60.0 % SPUTUM CULTURE + GRAM [id number] 15:07:00* Test Item Value Reference Range Interpretation Comments CULTURE (BEAKER) (test code = 1095) 1+ Normal respiratory stacie pre sent GRAM STAIN RESULT (BEAKER) (test code = 1123) 1+ WBCs GRAM STAIN RESULT (BEAKER) (test code = 97818) 0-5 epithelial cells GRAM STAIN RESULT (BEAKER) (test code = 43499) 1+ gram positive cocci in clusters POCT-GLUCOSE [id number] 12:32:00* Test Item Value Reference Range Interpretation Comments POC-GLUCOSE METER (BEAKER) (test code = 1538) 149 mg/dL 70-110 H : TESTED AT [facility] [address] [facility] [place], [id number]: Marketing Strategy Manager/Clinical Laboratory Technician ID = [id number] for JEREMY SCHMID BLOOD GAS, [id number] 11:00:00* Test Item Value Reference Range Interpretation Comments PH ARTERIAL (BEAKER) (test code = 383) 7.35 7.35-7.45 PCO2 ARTERIAL (BEAKER) (test code = 384) 33 mmHg 35-45 L PO2 ARTERIAL (BEAKER) (test code = 385) 76 mmHg 80-90 L O2 SATURATION ARTERIAL (BEAKER) (test code = 386) 94.4 % 96.0 -97.0 L HCO3 ARTERIAL (BEAKER) (test code = 388) 18 mmol/L 21-29 L BASE EXCESS ARTERIAL (BEAKER) (test code = 387) -6.8 mmol/L -2.0-3 .0 L PATIENT TEMPERATURE (BEAKER) (test code = 1818) 37.5 C FIO2 (BEAKER) (test code = 1819) 60.0 % BASIC METABOLIC [id number] 10:24:00* Test Item Value Reference Range Interpretation Comments SODIUM (BEAKER) (test code = 381) 137 meq/L 136-145 POTASSIUM (BEAKER) (test code = 379) 3.5 meq/L 3.5-5.1 CHLORIDE (BEAKER) (test code = 382) 105 meq/L 98-107 CO2 (BEAKER) (test code = 355) 21 meq/L 22-29 L BLOOD UREA NITROGEN (BEAKER) (test code = 354) 26 mg/dL 7-21 H CREATININE (BEAKER) (test code = 358) 1.68 mg/dL 0.57-1.25 H GLUCOSE RANDOM (BEAKER) (test code = 652) 165 mg/dL 70-105 H CALCIUM (BEAKER) (test code = 697) 7.9 mg/dL 8.4-10.2 L EGFR (BEAKER) (test code = 1092) 43 mL/min/1.73 sq m ESTIMATED GFR IS NOT ACCURATE CREATININE CLEARANCE IN PREDICTING GLOMERULAR FILTRATION RATE. ESTIMATED GFR IS NOT APPLICABLE FOR DIALYSIS PATIENTS. Marketing Strategy Manager ID - RYANN [id number] 10:19:00* Test Item Value Reference Range Interpretation Comments PHOSPHORUS (BEAKER) (test code = 604) 2.9 mg/dL 2.3-4.7 Marketing Strategy Manager ID - RYANN [id number] 10:19:00* Test Item Value Reference Range Interpretation Comments MAGNESIUM (BEAKER) (test code = 627) 2.1 mg/dL 1.6-2.6 Marketing Strategy Manager ID - RYANN FCBC W/PLT COUNT & AUTO [id number] 08:28:00* Test Item Value Reference Range Interpretation Comments WHITE BLOOD CELL COUNT (BEAKER) (test code = 775) 15.7 K/ L 3.5- 10.5 H RED BLOOD CELL COUNT (BEAKER) (test code = 761) 4.23 M/ L 4.63-6 .08 L HEMOGLOBIN (BEAKER) (test code = 410) 11.8 GM/DL 13.7-17.5 L HEMATOCRIT (BEAKER) (test code = 411) 37.7 % 40.1-51.0 L MEAN CORPUSCULAR VOLUME (BEAKER) (test code = 753) 89.1 fL 79. 0-92.2 MEAN CORPUSCULAR HEMOGLOBIN (BEAKER) (test code = 751) 27.9 pg 25.7-32.2 MEAN CORPUSCULAR HEMOGLOBIN CONC (BEAKER) (test code = 752) 31.3 GM/DL 32.3-36.5 L RED CELL DISTRIBUTION WIDTH (BEAKER) (test code = 412) 16.0 % 11.6-14.4 H PLATELET COUNT (BEAKER) (test code = 756) 128 K/CU MM 150-450 L MEAN PLATELET VOLUME (BEAKER) (test code = 754) 13.2 fL 9.4-12 .4 H NUCLEATED RED BLOOD CELLS (BEAKER) (test code = 413) 7 /100 WBC 0 -0 H (MANUAL DIFFERENTIAL)2019-12-24 08:28:00* Test Item Value Reference Range Interpretation Comments NEUTROPHILS - REL (DIFF) (BEAKER) (test code = 1359) 58 % LYMPHOCYTES - REL (DIFF) (BEAKER) (test code = 1360) 9 % MONOCYTES - REL (DIFF) (BEAKER) (test code = 1361) 2 % EOSINOPHILS - REL (DIFF) (BEAKER) (test code = 1362) 1 % BASOPHILS - REL (DIFF) (BEAKER) (test code = 1363) 0 % METAMYELOCYTES-REL (DIFF) (BEAKER) (test code = 258) 6 % 0 -0 H MYELOCYTES-REL (DIFF) (BEAKER) (test code = 1594) 4 % 0-0 H BANDS - REL (DIFF) (BEAKER) (test code = 1348) 20 % 0-10 H NEUTROPHILS - ABS (DIFF) (BEAKER) (test code = 1365) 9.11 K/ L 1 .80-8.00 H LYMPHOCYTES - ABS (DIFF) (BEAKER) (test code = 1366) 1.41 K/ L 1 .48-4.50 L MONOCYTES - ABS (DIFF) (BEAKER) (test code = 1367) 0.31 K/ L 0.0 0-1.30 EOSINOPHILS - ABS (DIFF) (BEAKER) (test code = 1368) 0.16 K/ L 0 .00-0.50 BASOPHILS - ABS (DIFF) (BEAKER) (test code = 1369) 0.00 K/ L 0.0 0-0.20 METAMYELOCTYES - ABS (DIFF) (BEAKER) (test code = 261) 0.94 K/ L 0.00-0.00 H BANDS-ABS (DIFF) (BEAKER) (test code = 1349) 3.1 K/ L 0.0-0.8 H MYELOCYTES-ABS (DIFF) (BEAKER) (test code = 1593) 0.63 K/ L 0.00 -0.00 H TOTAL COUNTED (BEAKER) (test code = 1351) 100 BANDS + SEGMENTED NEUTROPHILS (BEAKER) (test code = 1352) 12.25 MANUAL NRBC PER 100 CELLS (BEAKER) (test code = 1353) 7 /100 WBC 0-0 H WBC MORPHOLOGY (BEAKER) (test code = 487) Normal PLT MORPHOLOGY (BEAKER) (test code = 486) Normal ANISOCYTOSIS (BEAKER) (test code = 961) 1+ few THROMBOELASTOGRAPH (TEG)2019-12-24 06:53:00* Test Item Value Reference Range Interpretation Comments TEG ACTIVATED CLOTTING TIME (BEAKER) (test code = 1407) 44.3 minute s 4.0-7.0 H TEG FIBRINOGEN ACTIVITY (BEAKER) (test code = 1408) 14.7 degrees 61 .0-73.0 L TEG PLT. AGGREGATION (BEAKER) (test code = 1409) 70.0 MM 55.0- 65.0 H TGH ACTIVATED CLOTTING TIME (BEAKER) (test code = 1411) 13.8 minute s 4.0-7.0 H TGH FIBRINOGEN ACTIVITY (BEAKER) (test code = 1412) 68.1 degrees 61 .0-73.0 TGH PLT. AGGREGATION (BEAKER) (test code = 1413) 87.3 MM 55.0- 65.0 H [id number] 04:11:00* Test Item Value Reference Range Interpretation Comments MAGNESIUM (BEAKER) (test code = 627) 2.0 mg/dL 1.6-2.6 Specimen slightly hemolyzed Marketing Strategy Manager ID - IVELISSE [id number] 04:11:00* Test Item Value Reference Range Interpretation Comments PHOSPHORUS (BEAKER) (test code = 604) 3.8 mg/dL 2.3-4.7 Specimen slightly hemolyzed Marketing Strategy Manager ID - IVELISSE WCOMPREHENSIVE METABOLIC [id number] 04:11:00* Test Item Value Reference Range Interpretation Comments TOTAL PROTEIN (BEAKER) (test code = 770) 7.3 gm/dL 6.0-8.3 Specimen slightly hemolyzed ALBUMIN (BEAKER) (test code = 1145) 2.6 g/dL 3.5-5.0 L Specimen slightly hemolyzed ALKALINE PHOSPHATASE (BEAKER) (test code = 346) 368 U/L 40-150 H BILIRUBIN TOTAL (BEAKER) (test code = 377) 0.7 mg/dL 0.2-1.2 Specimen slightly hemolyzed SODIUM (BEAKER) (test code = 381) 134 meq/L 136-145 L POTASSIUM (BEAKER) (test code = 379) 4.3 meq/L 3.5-5.1 Specimen slightly hemolyzed CHLORIDE (BEAKER) (test code = 382) 101 meq/L 98-107 CO2 (BEAKER) (test code = 355) 22 meq/L 22-29 BLOOD UREA NITROGEN (BEAKER) (test code = 354) 30 mg/dL 7-21 H CREATININE (BEAKER) (test code = 358) 2.00 mg/dL 0.57-1.25 H Specimen slightly hemolyzed GLUCOSE RANDOM (BEAKER) (test code = 652) 271 mg/dL 70-105 H CALCIUM (BEAKER) (test code = 697) 8.7 mg/dL 8.4-10.2 AST (SGOT) (BEAKER) (test code = 353) 119 U/L 5-34 H Specimen slightly hemolyzed ALT (SGPT) (BEAKER) (test code = 347) 111 U/L 6-55 H Specimen slightly hemolyzed EGFR (BEAKER) (test code = 1092) 35 mL/min/1.73 sq m ESTIMATED GFR IS NOT ACCURATE CREATININE CLEARANCE IN PREDICTING GLOMERULAR FILTRATION RATE. ESTIMATED GFR IS NOT APPLICABLE FOR DIALYSIS PATIENTS. Marketing Strategy Manager ID Monisha OVIEDO [id number] 03:37:00* Test Item Value Reference Range Interpretation Comments PARTIAL THROMBOPLASTIN TIME (BEAKER) (test code = 760) 72.7 seconds 22.5-36.0 H PROTHROMBIN [id number] 03:36:00* Test Item Value Reference Range Interpretation Comments PROTIME (BEAKER) (test code = 759) 14.3 seconds 11.9-14.2 H INR (BEAKER) (test code = 370) 1.1 <=5.9 Effective 11/04/2018: PT Reference Range ChangeNew: 11.9-14.2 Previous: 11.7-14. 7RECOMMENDED COUMADIN/WARFARIN INR THERAPY RANGESSTANDARD DOSE: 2.0-3.0 Include s: PROPHYLAXIS for venous thrombosis, systemic embolization; TREATMENT for venou s thrombosis and/or pulmonary embolus.HIGH RISK: Target INR is 2.5-3.5 for patie nts wiht mechanical heart valves.BLOOD GAS, [id number] 03:32:00* Test Item Value Reference Range Interpretation Comments PH ARTERIAL (BEAKER) (test code = 383) 7.28 7.35-7.45 L PCO2 ARTERIAL (BEAKER) (test code = 384) 56 mmHg 35-45 H PO2 ARTERIAL (BEAKER) (test code = 385) 128 mmHg 80-90 H O2 SATURATION ARTERIAL (BEAKER) (test code = 386) 98.0 % 96.0 -97.0 H HCO3 ARTERIAL (BEAKER) (test code = 388) 25 mmol/L 21-29 BASE EXCESS ARTERIAL (BEAKER) (test code = 387) -1.9 mmol/L -2.0-3 .0 PATIENT TEMPERATURE (BEAKER) (test code = 1818) 37.5 C FIO2 (BEAKER) (test code = 1819) 100.0 % CALCIUM, [id number] 03:32:00* Test Item Value Reference Range Interpretation Comments CALCIUM IONIZED (BEAKER) (test code = 698) 1.10 mmol/L 1.12-1.27 L PH, BLOOD (BEAKER) (test code = 1810) 7.29 LACTIC ACID, [id number] 03:27:00* Test Item Value Reference Range Interpretation Comments LACTATE BLOOD ARTERIAL (2) (BEAKER) (test code = 2874) 1.6 mmol/L 0.5-2.2 Specimen slightly hemolyzed Marketing Strategy Manager ID - IVELISSE WPOCT-GLUCOSE [id number] 23:50:00* Test Item Value Reference Range Interpretation Comments POC-GLUCOSE METER (BEAKER) (test code = 1538) 212 mg/dL 70-110 H : TESTED AT [facility] [address] [place] [address], [address]: Marketing Strategy Manager/Clinical Laboratory Technician ID = [id number] for Eric Davis BLOOD GAS, [id number] 21:26:00* Test Item Value Reference Range Interpretation Comments PH ARTERIAL (BEAKER) (test code = 383) 7.29 7.35-7.45 L PCO2 ARTERIAL (BEAKER) (test code = 384) 52 mmHg 35-45 H PO2 ARTERIAL (BEAKER) (test code = 385) 76 mmHg 80-90 L O2 SATURATION ARTERIAL (BEAKER) (test code = 386) 93.5 % 96.0 -97.0 L HCO3 ARTERIAL (BEAKER) (test code = 388) 24 mmol/L 21-29 BASE EXCESS ARTERIAL (BEAKER) (test code = 387) -2.8 mmol/L -2.0-3 .0 L PATIENT TEMPERATURE (BEAKER) (test code = 1818) 37.0 C FIO2 (BEAKER) (test code = 1819) 100.0 % [id number] 20:56:00* Test Item Value Reference Range Interpretation Comments PHOSPHORUS (BEAKER) (test code = 604) 4.0 mg/dL 2.3-4.7 Marketing Strategy Manager ID - [id number] 20:56:00* Test Item Value Reference Range Interpretation Comments MAGNESIUM (BEAKER) (test code = 627) 2.2 mg/dL 1.6-2.6 Marketing Strategy Manager ID - BSBASIC METABOLIC [id number] 20:56:00* Test Item Value Reference Range Interpretation Comments SODIUM (BEAKER) (test code = 381) 135 meq/L 136-145 L POTASSIUM (BEAKER) (test code = 379) 4.1 meq/L 3.5-5.1 CHLORIDE (BEAKER) (test code = 382) 101 meq/L 98-107 CO2 (BEAKER) (test code = 355) 23 meq/L 22-29 BLOOD UREA NITROGEN (BEAKER) (test code = 354) 28 mg/dL 7-21 H CREATININE (BEAKER) (test code = 358) 1.96 mg/dL 0.57-1.25 H GLUCOSE RANDOM (BEAKER) (test code = 652) 203 mg/dL 70-105 H CALCIUM (BEAKER) (test code = 697) 8.5 mg/dL 8.4-10.2 EGFR (BEAKER) (test code = 1092) 36 mL/min/1.73 sq m ESTIMATED GFR IS NOT ACCURATE CREATININE CLEARANCE IN PREDICTING GLOMERULAR FILTRATION RATE. ESTIMATED GFR IS NOT APPLICABLE FOR DIALYSIS PATIENTS. Marketing Strategy Manager ID - BSPOCT-GLUCOSE [id number] 18:23:00* Test Item Value Reference Range Interpretation Comments POC-GLUCOSE METER (BEAKER) (test code = 1538) 142 mg/dL 70-110 H : TESTED AT [address], [address]: Marketing Strategy Manager/Clinical Laboratory Technician ID = [id number] for RICHELLE AGARWAL (CELLAVISION MANUAL DIFF)2019-12-23 16:47:00* Test Item Value Reference Range Interpretation Comments NEUTROPHILS - REL (CELLAVISION)(BEAKER) (test code = 2816) 56 % LYMPHOCYTES - REL (CELLAVISION)(BEAKER) (test code = 2817) 10 % MONOCYTES - REL (CELLAVISION)(BEAKER) (test code = 2818) 1 % METAMYELOCYTES - REL (CELLAVISION)(BEAKER) (test code = 2821) 14 % 0-0 H MYELOCYTES - REL (CELLAVISION)(BEAKER) (test code = 2822) 4 % 0-0 H BANDS - REL (CELLAVISION)(BEAKER) (test code = 2826) 15 % 0 -10 H NEUTROPHILS - ABS (CELLAVISION)(BEAKER) (test code = 2830) 10.42 K/ul 1.78-5.38 H LYMPHOCYTES - ABS (CELLAVISION)(BEAKER) (test code = 2831) 1.86 K/ul 1.32-3.57 MONOCYTES - ABS (CELLAVISION)(BEAKER) (test code = 2832) 0.19 K/uL 0.30-0.82 L METAMYELOCYTES - ABS (CELLAVISION)(BEAKER) (test code = 2836 ) 2.60 K/uL 0.00-0.00 H MYELOCYTES-ABS (CELLAVISION)(BEAKER) (test code = 2837) 0.74 K/uL 0.00-0.00 H BANDS - ABS (CELLAVISION)(BEAKER) (test code = 2840) 2.79 K/uL 0 .00-0.80 H TOTAL COUNTED (BEAKER) (test code = 1351) 100 MANUAL NRBC PER 100 CELLS (BEAKER) (test code = 1353) 9 /100 WBC 0-0 H WBC MORPHOLOGY (BEAKER) (test code = 487) Normal GIANT PLATELETS (BEAKER) (test code = 313) Present POLYCHROMATOPHILLIC RBCS(BEAKER) (test code = 478) 1+ few ANISOCYTOSIS (BEAKER) (test code = 961) 1+ few MICROCYTES (BEAKER) (test code = 965) 1+ few POIKILOCYTES (BEAKER) (test code = 966) 1+ few SPHEROCYTES (BEAKER) (test code = 768) 1+ few ARTIFACT (CELLAVISION)(BEAKER) (test code = 3432) Present PLATELET CONCENTRATION (CELLAVISION)(BEAKER) (test code = 3438) Dec reased Marketing Strategy Manager ID - [id number] ID - Edi comments: Slide comments: BASIC METABOLIC [id number] 16:35:00* Test Item Value Reference Range Interpretation Comments SODIUM (BEAKER) (test code = 381) 137 meq/L 136-145 POTASSIUM (BEAKER) (test code = 379) 4.0 meq/L 3.5-5.1 CHLORIDE (BEAKER) (test code = 382) 103 meq/L 98-107 CO2 (BEAKER) (test code = 355) 25 meq/L 22-29 BLOOD UREA NITROGEN (BEAKER) (test code = 354) 27 mg/dL 7-21 H CREATININE (BEAKER) (test code = 358) 1.91 mg/dL 0.57-1.25 H GLUCOSE RANDOM (BEAKER) (test code = 652) 145 mg/dL 70-105 H CALCIUM (BEAKER) (test code = 697) 8.9 mg/dL 8.4-10.2 EGFR (BEAKER) (test code = 1092) 37 mL/min/1.73 sq m ESTIMATED GFR IS NOT ACCURATE CREATININE CLEARANCE IN PREDICTING GLOMERULAR FILTRATION RATE. ESTIMATED GFR IS NOT APPLICABLE FOR DIALYSIS PATIENTS. Marketing Strategy Manager ID - BSLACTIC ACID, [id number] 16:27:00* Test Item Value Reference Range Interpretation Comments LACTATE BLOOD ARTERIAL (2) (BEAKER) (test code = 2874) 1.9 mmol/L 0.5-2.2 Specimen slightly hemolyzed Marketing Strategy Manager ID - BSCBC W/PLT COUNT & AUTO [id number] 16:13:00* Test Item Value Reference Range Interpretation Comments WHITE BLOOD CELL COUNT (BEAKER) (test code = 775) 18.8 K/ L 3.5- 10.5 H RED BLOOD CELL COUNT (BEAKER) (test code = 761) 4.43 M/ L 4.63-6 .08 L HEMOGLOBIN (BEAKER) (test code = 410) 12.3 GM/DL 13.7-17.5 L HEMATOCRIT (BEAKER) (test code = 411) 39.3 % 40.1-51.0 L MEAN CORPUSCULAR VOLUME (BEAKER) (test code = 753) 88.7 fL 79. 0-92.2 MEAN CORPUSCULAR HEMOGLOBIN (BEAKER) (test code = 751) 27.8 pg 25.7-32.2 MEAN CORPUSCULAR HEMOGLOBIN CONC (BEAKER) (test code = 752) 31.3 GM/DL 32.3-36.5 L RED CELL DISTRIBUTION WIDTH (BEAKER) (test code = 412) 15.6 % 11.6-14.4 H PLATELET COUNT (BEAKER) (test code = 756) 138 K/CU MM 150-450 L MEAN PLATELET VOLUME (BEAKER) (test code = 754) 12.8 fL 9.4-12 .4 H NUCLEATED RED BLOOD CELLS (BEAKER) (test code = 413) 6 /100 WBC 0 -0 H BLOOD GAS, [id number] 16:02:00* Test Item Value Reference Range Interpretation Comments PH ARTERIAL (BEAKER) (test code = 383) 7.35 7.35-7.45 PCO2 ARTERIAL (BEAKER) (test code = 384) 46 mmHg 35-45 H PO2 ARTERIAL (BEAKER) (test code = 385) 75 mmHg 80-90 L O2 SATURATION ARTERIAL (BEAKER) (test code = 386) 94.4 % 96.0 -97.0 L HCO3 ARTERIAL (BEAKER) (test code = 388) 25 mmol/L 21-29 BASE EXCESS ARTERIAL (BEAKER) (test code = 387) -1.2 mmol/L -2.0-3 .0 PATIENT TEMPERATURE (BEAKER) (test code = 1818) 37.0 C FIO2 (BEAKER) (test code = 1819) 100.0 % POCT-GLUCOSE [id number] 12:07:00* Test Item Value Reference Range Interpretation Comments POC-GLUCOSE METER (BEAKER) (test code = 1538) 187 mg/dL 70-110 H : TESTED AT [facility] [address] [facility] [place], [address]: Marketing Strategy Manager/Clinical Laboratory Technician ID = [id number] for ERIC FOWLER [id number] 11:30:00* Test Item Value Reference Range Interpretation Comments FERRITIN (BEAKER) (test code = 361) 4228.07 ng/mL 5.00-275.00 H Marketing Strategy Manager ID - [id number] 10:39:00* Test Item Value Reference Range Interpretation Comments PHOSPHORUS (BEAKER) (test code = 604) 3.2 mg/dL 2.3-4.7 Marketing Strategy Manager ID - [id number] 10:39:00* Test Item Value Reference Range Interpretation Comments MAGNESIUM (BEAKER) (test code = 627) 2.3 mg/dL 1.6-2.6 Marketing Strategy Manager ID - LMBASIC METABOLIC [id number] 10:39:00* Test Item Value Reference Range Interpretation Comments SODIUM (BEAKER) (test code = 381) 135 meq/L 136-145 L POTASSIUM (BEAKER) (test code = 379) 3.9 meq/L 3.5-5.1 CHLORIDE (BEAKER) (test code = 382) 101 meq/L 98-107 CO2 (BEAKER) (test code = 355) 25 meq/L 22-29 BLOOD UREA NITROGEN (BEAKER) (test code = 354) 28 mg/dL 7-21 H CREATININE (BEAKER) (test code = 358) 2.18 mg/dL 0.57-1.25 H GLUCOSE RANDOM (BEAKER) (test code = 652) 248 mg/dL 70-105 H CALCIUM (BEAKER) (test code = 697) 8.6 mg/dL 8.4-10.2 EGFR (BEAKER) (test code = 1092) 32 mL/min/1.73 sq m ESTIMATED GFR IS NOT ACCURATE CREATININE CLEARANCE IN PREDICTING GLOMERULAR FILTRATION RATE. ESTIMATED GFR IS NOT APPLICABLE FOR DIALYSIS PATIENTS. Marketing Strategy Manager ID - LMBLOOD GAS, [id number] 10:37:00* Test Item Value Reference Range Interpretation Comments PH ARTERIAL (BEAKER) (test code = 383) 7.30 7.35-7.45 L PCO2 ARTERIAL (BEAKER) (test code = 384) 50 mmHg 35-45 H PO2 ARTERIAL (BEAKER) (test code = 385) 76 mmHg 80-90 L O2 SATURATION ARTERIAL (BEAKER) (test code = 386) 93.3 % 96.0 -97.0 L HCO3 ARTERIAL (BEAKER) (test code = 388) 24 mmol/L 21-29 BASE EXCESS ARTERIAL (BEAKER) (test code = 387) -2.4 mmol/L -2.0-3 .0 L PATIENT TEMPERATURE (BEAKER) (test code = 1818) 37.5 C FIO2 (BEAKER) (test code = 1819) 100.0 % CBC W/PLT COUNT & AUTO [id number] 09:38:00* Test Item Value Reference Range Interpretation Comments WHITE BLOOD CELL COUNT (BEAKER) (test code = 775) 14.8 K/ L 3.5- 10.5 H RED BLOOD CELL COUNT (BEAKER) (test code = 761) 4.30 M/ L 4.63-6 .08 L HEMOGLOBIN (BEAKER) (test code = 410) 12.0 GM/DL 13.7-17.5 L HEMATOCRIT (BEAKER) (test code = 411) 38.4 % 40.1-51.0 L MEAN CORPUSCULAR VOLUME (BEAKER) (test code = 753) 89.3 fL 79. 0-92.2 MEAN CORPUSCULAR HEMOGLOBIN (BEAKER) (test code = 751) 27.9 pg 25.7-32.2 MEAN CORPUSCULAR HEMOGLOBIN CONC (BEAKER) (test code = 752) 31.3 GM/DL 32.3-36.5 L RED CELL DISTRIBUTION WIDTH (BEAKER) (test code = 412) 15.6 % 11.6-14.4 H PLATELET COUNT (BEAKER) (test code = 756) 114 K/CU MM 150-450 L MEAN PLATELET VOLUME (BEAKER) (test code = 754) 13.0 fL 9.4-12 .4 H NUCLEATED RED BLOOD CELLS (BEAKER) (test code = 413) 3 /100 WBC 0 -0 H (CELLAVISION MANUAL DIFF)2019-12-23 09:38:00* Test Item Value Reference Range Interpretation Comments NEUTROPHILS - REL (CELLAVISION)(BEAKER) (test code = 2816) 72 % LYMPHOCYTES - REL (CELLAVISION)(BEAKER) (test code = 2817) 4 % MONOCYTES - REL (CELLAVISION)(BEAKER) (test code = 2818) 8 % METAMYELOCYTES - REL (CELLAVISION)(BEAKER) (test code = 2821) 2 % 0-0 H MYELOCYTES - REL (CELLAVISION)(BEAKER) (test code = 2822) 6 % 0-0 H PROMYELOCYTES - REL (CELLAVSION)(BEAKER) (test code = 2825) 2 % 0-0 H BANDS - REL (CELLAVISION)(BEAKER) (test code = 2826) 6 % 0 -10 NEUTROPHILS - ABS (CELLAVISION)(BEAKER) (test code = 2830) 10.66 K/ul 1.78-5.38 H LYMPHOCYTES - ABS (CELLAVISION)(BEAKER) (test code = 2831) 0.59 K/ul 1.32-3.57 L MONOCYTES - ABS (CELLAVISION)(BEAKER) (test code = 2832) 1.18 K/uL 0.30-0.82 H METAMYELOCYTES - ABS (CELLAVISION)(BEAKER) (test code = 2836 ) 0.30 K/uL 0.00-0.00 H MYELOCYTES-ABS (CELLAVISION)(BEAKER) (test code = 2837) 0.89 K/uL 0.00-0.00 H PROMYELOCYTES - ABS (CELLAVISION)(BEAKER) (test code = 2838) 0.30 K/uL 0.00-0.00 H BANDS - ABS (CELLAVISION)(BEAKER) (test code = 2840) 0.89 K/uL 0 .00-0.80 H TOTAL COUNTED (BEAKER) (test code = 1351) 100 MANUAL NRBC PER 100 CELLS (BEAKER) (test code = 1353) 3 /100 WBC 0-0 H WBC MORPHOLOGY (BEAKER) (test code = 487) Normal PLT MORPHOLOGY (BEAKER) (test code = 486) Normal POLYCHROMATOPHILLIC RBCS(BEAKER) (test code = 478) 1+ few ANISOCYTOSIS (BEAKER) (test code = 961) 1+ few MICROCYTES (BEAKER) (test code = 965) 1+ few POIKILOCYTES (BEAKER) (test code = 966) 2+ moderate SPHEROCYTES (BEAKER) (test code = 768) 1+ few TEAR DROP CELLS (BEAKER) (test code = 481) 1+ few ACANTHOCYTES (BEAKER) (test code = 471) 1+ few ARTIFACT (CELLAVISION)(BEAKER) (test code = 3432) Present PLATELET CONCENTRATION (CELLAVISION)(BEAKER) (test code = 3438) Dec reased Marketing Strategy Manager ID - [id number] ID - Chacha Flores comments: Slide comments: POCT-GLUCOSE [id number] 06:18:00* Test Item Value Reference Range Interpretation Comments POC-GLUCOSE METER (BEAKER) (test code = 1538) 264 mg/dL 70-110 H : TESTED AT [facility] [address] [place], [address]: Marketing Strategy Manager/Clinical Laboratory Technician ID = [id number] for Rigo Lord [id number] 06:00:00* Test Item Value Reference Range Interpretation Comments PROCALCITONIN (BEAKER) (test code = 3036) 13.95 ng/mL <0.05 HH SEPSIS RISK (ng/mL)Low: 0.05-0.50Intermediate: 0.51-2.00High: > =[id number] 05:38:00* Test Item Value Reference Range Interpretation Comments PHOSPHORUS (BEAKER) (test code = 604) 3.1 mg/dL 2.3-4.7 Marketing Strategy Manager ID - LUISA [id number] 05:38:00* Test Item Value Reference Range Interpretation Comments MAGNESIUM (BEAKER) (test code = 627) 2.3 mg/dL 1.6-2.6 Marketing Strategy Manager ID - PIAYA LCOMPREHENSIVE METABOLIC [id number] 05:38:00* Test Item Value Reference Range Interpretation Comments TOTAL PROTEIN (BEAKER) (test code = 770) 7.2 gm/dL 6.0-8.3 ALBUMIN (BEAKER) (test code = 1145) 2.7 g/dL 3.5-5.0 L ALKALINE PHOSPHATASE (BEAKER) (test code = 346) 376 U/L 40-150 H BILIRUBIN TOTAL (BEAKER) (test code = 377) 0.6 mg/dL 0.2-1.2 SODIUM (BEAKER) (test code = 381) 135 meq/L 136-145 L POTASSIUM (BEAKER) (test code = 379) 4.6 meq/L 3.5-5.1 CHLORIDE (BEAKER) (test code = 382) 102 meq/L 98-107 CO2 (BEAKER) (test code = 355) 24 meq/L 22-29 BLOOD UREA NITROGEN (BEAKER) (test code = 354) 31 mg/dL 7-21 H CREATININE (BEAKER) (test code = 358) 2.25 mg/dL 0.57-1.25 H GLUCOSE RANDOM (BEAKER) (test code = 652) 353 mg/dL 70-105 H CALCIUM (BEAKER) (test code = 697) 8.6 mg/dL 8.4-10.2 AST (SGOT) (BEAKER) (test code = 353) 148 U/L 5-34 H ALT (SGPT) (BEAKER) (test code = 347) 137 U/L 6-55 H EGFR (BEAKER) (test code = 1092) 31 mL/min/1.73 sq m ESTIMATED GFR IS NOT ACCURATE CREATININE CLEARANCE IN PREDICTING GLOMERULAR FILTRATION RATE. ESTIMATED GFR IS NOT APPLICABLE FOR DIALYSIS PATIENTS. Marketing Strategy Manager ID Monisha MORAN LLACTATE DEHYDROGENASE (LDH)2019-12-23 05:38:00* Test Item Value Reference Range Interpretation Comments LACTATE DEHYDROGENASE (BEAKER) (test code = 635) 772 U/L 125-2 20 H Marketing Strategy Manager ID - LUISA LC-REACTIVE [id number] 05:38:00* Test Item Value Reference Range Interpretation Comments C-REACTIVE PROTEIN (BEAKER) (test code = 676) 29.82 mg/dL 0.00-0.5 0 H Marketing Strategy Manager ID - LUISA [id number] 05:17:00* Test Item Value Reference Range Interpretation Comments PARTIAL THROMBOPLASTIN TIME (BEAKER) (test code = 760) 80.7 seconds 22.5-36.0 H PROTHROMBIN TIME/[id number] 05:16:00* Test Item Value Reference Range Interpretation Comments PROTIME (BEAKER) (test code = 759) 16.1 seconds 11.9-14.2 H INR (BEAKER) (test code = 370) 1.3 <=5.9 Effective 11/04/2018: PT Reference Range ChangeNew: 11.9-14.2 Previous: 11.7-14. 7RECOMMENDED COUMADIN/WARFARIN INR THERAPY RANGESSTANDARD DOSE: 2.0-3.0 Include s: PROPHYLAXIS for venous thrombosis, systemic embolization; TREATMENT for venou s thrombosis and/or pulmonary embolus.HIGH RISK: Target INR is 2.5-3.5 for patie nts wiht mechanical heart valves.LACTIC ACID, [id number] 05:02:00* Test Item Value Reference Range Interpretation Comments LACTATE BLOOD ARTERIAL (2) (BEAKER) (test code = 2874) 2.0 mmol/L 0.5-2.2 Marketing Strategy Manager ID - ESTELLASHARON LBLOOD GAS, [id number] 04:54:00* Test Item Value Reference Range Interpretation Comments PH ARTERIAL (BEAKER) (test code = 383) 7.32 7.35-7.45 L PCO2 ARTERIAL (BEAKER) (test code = 384) 51 mmHg 35-45 H PO2 ARTERIAL (BEAKER) (test code = 385) 113 mmHg 80-90 H O2 SATURATION ARTERIAL (BEAKER) (test code = 386) 97.5 % 96.0 -97.0 H HCO3 ARTERIAL (BEAKER) (test code = 388) 26 mmol/L 21-29 BASE EXCESS ARTERIAL (BEAKER) (test code = 387) -0.8 mmol/L -2.0-3 .0 PATIENT TEMPERATURE (BEAKER) (test code = 1818) 38.0 C FIO2 (BEAKER) (test code = 1819) 90.0 % POCT-GLUCOSE [id number] 00:30:00* Test Item Value Reference Range Interpretation Comments POC-GLUCOSE METER (BEAKER) (test code = 1538) 366 mg/dL 70-110 H : TESTED AT [facility] [address] [facility] [place], [id number]: Marketing Strategy Manager/Clinical Laboratory Technician ID = [id number] for Rigo Lord [id number] 21:52:00* Test Item Value Reference Range Interpretation Comments MAGNESIUM (BEAKER) (test code = 627) 2.5 mg/dL 1.6-2.6 Specimen moderately hemolyzed Marketing Strategy Manager ID - [id number] 21:52:00* Test Item Value Reference Range Interpretation Comments PHOSPHORUS (BEAKER) (test code = 604) 4.0 mg/dL 2.3-4.7 Specimen moderately hemolyzed Marketing Strategy Manager ID - BSBASIC METABOLIC [id number] 21:52:00* Test Item Value Reference Range Interpretation Comments SODIUM (BEAKER) (test code = 381) 133 meq/L 136-145 L POTASSIUM (BEAKER) (test code = 379) 5.0 meq/L 3.5-5.1 Specimen moderately hemolyzed CHLORIDE (BEAKER) (test code = 382) 101 meq/L 98-107 CO2 (BEAKER) (test code = 355) 22 meq/L 22-29 BLOOD UREA NITROGEN (BEAKER) (test code = 354) 29 mg/dL 7-21 H CREATININE (BEAKER) (test code = 358) 2.26 mg/dL 0.57-1.25 H Specimen moderately hemolyzed GLUCOSE RANDOM (BEAKER) (test code = 652) 345 mg/dL 70-105 H CALCIUM (BEAKER) (test code = 697) 8.3 mg/dL 8.4-10.2 L EGFR (BEAKER) (test code = 1092) 30 mL/min/1.73 sq m ESTIMATED GFR IS NOT ACCURATE CREATININE CLEARANCE IN PREDICTING GLOMERULAR FILTRATION RATE. ESTIMATED GFR IS NOT APPLICABLE FOR DIALYSIS PATIENTS. Marketing Strategy Manager ID - BSBLOOD GAS, [id number] 21:35:00* Test Item Value Reference Range Interpretation Comments PH ARTERIAL (BEAKER) (test code = 383) 7.24 7.35-7.45 L PCO2 ARTERIAL (BEAKER) (test code = 384) 65 mmHg 35-45 H PO2 ARTERIAL (BEAKER) (test code = 385) 91 mmHg 80-90 H O2 SATURATION ARTERIAL (BEAKER) (test code = 386) 94.7 % 96.0 -97.0 L HCO3 ARTERIAL (BEAKER) (test code = 388) 27 mmol/L 21-29 BASE EXCESS ARTERIAL (BEAKER) (test code = 387) -1.5 mmol/L -2.0-3 .0 PATIENT TEMPERATURE (BEAKER) (test code = 1818) 38.0 C FIO2 (BEAKER) (test code = 1819) 80.0 % [id number] 20:41:00* Test Item Value Reference Range Interpretation Comments PARTIAL THROMBOPLASTIN TIME (BEAKER) (test code = 760) 71.9 seconds 22.5-36.0 H POCT-GLUCOSE [id number] 19:06:00* Test Item Value Reference Range Interpretation Comments POC-GLUCOSE METER (BEAKER) (test code = 1538) 273 mg/dL 70-110 H : TESTED AT [facility] [address] [facility] [place], [address]: Marketing Strategy Manager/Clinical Laboratory Technician ID = [id number] for MARCIE VELASQUEZ (CELLAVISION MANUAL DIFF)2019-12-22 15:53:00* Test Item Value Reference Range Interpretation Comments NEUTROPHILS - REL (CELLAVISION)(BEAKER) (test code = 2816) 81 % LYMPHOCYTES - REL (CELLAVISION)(BEAKER) (test code = 2817) 2 % MONOCYTES - REL (CELLAVISION)(BEAKER) (test code = 2818) 6 % EOSINOPHILS - REL (CELLAVISION)(BEAKER) (test code = 2819) 2 % METAMYELOCYTES - REL (CELLAVISION)(BEAKER) (test code = 2821) 3 % 0-0 H PROMYELOCYTES - REL (CELLAVSION)(BEAKER) (test code = 2825) 1 % 0-0 H BANDS - REL (CELLAVISION)(BEAKER) (test code = 2826) 5 % 0 -10 NEUTROPHILS - ABS (CELLAVISION)(BEAKER) (test code = 2830) 12.96 K/ul 1.78-5.38 H LYMPHOCYTES - ABS (CELLAVISION)(BEAKER) (test code = 2831) 0.32 K/ul 1.32-3.57 L MONOCYTES - ABS (CELLAVISION)(BEAKER) (test code = 2832) 0.96 K/uL 0.30-0.82 H EOSINOPHILS - ABS (CELLAVISION)(BEAKER) (test code = 2834) 0.32 K/uL 0.04-0.54 METAMYELOCYTES - ABS (CELLAVISION)(BEAKER) (test code = 2836 ) 0.48 K/uL 0.00-0.00 H PROMYELOCYTES - ABS (CELLAVISION)(BEAKER) (test code = 2838) 0.16 K/uL 0.00-0.00 H BANDS - ABS (CELLAVISION)(BEAKER) (test code = 2840) 0.80 K/uL 0 .00-0.80 TOTAL COUNTED (BEAKER) (test code = 1351) 100 MANUAL NRBC PER 100 CELLS (BEAKER) (test code = 1353) 2 /100 WBC 0-0 H WBC MORPHOLOGY (BEAKER) (test code = 487) Normal GIANT PLATELETS (BEAKER) (test code = 313) Present POLYCHROMATOPHILLIC RBCS(BEAKER) (test code = 478) 1+ few ANISOCYTOSIS (BEAKER) (test code = 961) 1+ few MICROCYTES (BEAKER) (test code = 965) 1+ few MACROCYTES (BEAKER) (test code = 964) 1+ few POIKILOCYTES (BEAKER) (test code = 966) 1+ few TEAR DROP CELLS (BEAKER) (test code = 481) 1+ few ARTIFACT (CELLAVISION)(BEAKER) (test code = 3432) Present PLATELET CONCENTRATION (CELLAVISION)(BEAKER) (test code = 3438) Dec reased Marketing Strategy Manager ID - [id number] ID - Enid Payne comments: Slide comments: BASIC METABOLIC [id number] 15:37:00* Test Item Value Reference Range Interpretation Comments SODIUM (BEAKER) (test code = 381) 138 meq/L 136-145 POTASSIUM (BEAKER) (test code = 379) 4.5 meq/L 3.5-5.1 Specimen moderately hemolyzed CHLORIDE (BEAKER) (test code = 382) 107 meq/L 98-107 CO2 (BEAKER) (test code = 355) 23 meq/L 22-29 BLOOD UREA NITROGEN (BEAKER) (test code = 354) 27 mg/dL 7-21 H CREATININE (BEAKER) (test code = 358) 1.81 mg/dL 0.57-1.25 H Specimen moderately hemolyzed GLUCOSE RANDOM (BEAKER) (test code = 652) 187 mg/dL 70-105 H CALCIUM (BEAKER) (test code = 697) 8.0 mg/dL 8.4-10.2 L EGFR (BEAKER) (test code = 1092) 39 mL/min/1.73 sq m ESTIMATED GFR IS NOT ACCURATE CREATININE CLEARANCE IN PREDICTING GLOMERULAR FILTRATION RATE. ESTIMATED GFR IS NOT APPLICABLE FOR DIALYSIS PATIENTS. Marketing Strategy Manager ID - EDASILACTIC ACID, [id number] 15:33:00* Test Item Value Reference Range Interpretation Comments LACTATE BLOOD ARTERIAL (2) (BEAKER) (test code = 2874) 1.9 mmol/L 0.5-2.2 Marketing Strategy Manager ID - EDASIBLOOD GAS, [id number] 15:18:00* Test Item Value Reference Range Interpretation Comments PH ARTERIAL (BEAKER) (test code = 383) 7.34 7.35-7.45 L PCO2 ARTERIAL (BEAKER) (test code = 384) 49 mmHg 35-45 H PO2 ARTERIAL (BEAKER) (test code = 385) 69 mmHg 80-90 L O2 SATURATION ARTERIAL (BEAKER) (test code = 386) 93.0 % 96.0 -97.0 L HCO3 ARTERIAL (BEAKER) (test code = 388) 26 mmol/L 21-29 BASE EXCESS ARTERIAL (BEAKER) (test code = 387) -0.7 mmol/L -2.0-3 .0 PATIENT TEMPERATURE (BEAKER) (test code = 1818) 36.5 C FIO2 (BEAKER) (test code = 1819) 90.0 % CBC W/PLT COUNT & AUTO [id number] 15:16:00* Test Item Value Reference Range Interpretation Comments WHITE BLOOD CELL COUNT (BEAKER) (test code = 775) 15.9 K/ L 3.5- 10.5 H RED BLOOD CELL COUNT (BEAKER) (test code = 761) 4.48 M/ L 4.63-6 .08 L HEMOGLOBIN (BEAKER) (test code = 410) 12.6 GM/DL 13.7-17.5 L HEMATOCRIT (BEAKER) (test code = 411) 40.5 % 40.1-51.0 MEAN CORPUSCULAR VOLUME (BEAKER) (test code = 753) 90.4 fL 79. 0-92.2 MEAN CORPUSCULAR HEMOGLOBIN (BEAKER) (test code = 751) 28.1 pg 25.7-32.2 MEAN CORPUSCULAR HEMOGLOBIN CONC (BEAKER) (test code = 752) 31.1 GM/DL 32.3-36.5 L RED CELL DISTRIBUTION WIDTH (BEAKER) (test code = 412) 15.4 % 11.6-14.4 H PLATELET COUNT (BEAKER) (test code = 756) 98 K/CU MM 150-450 L MEAN PLATELET VOLUME (BEAKER) (test code = 754) 13.5 fL 9.4-12 .4 H NUCLEATED RED BLOOD CELLS (BEAKER) (test code = 413) 1 /100 WBC 0 -0 H BLOOD [id number] 14:00:00* Test Item Value Reference Range Interpretation Comments CULTURE (BEAKER) (test code = 1095) No growth in 5 days BLOOD [id number] 14:00:00* Test Item Value Reference Range Interpretation Comments CULTURE (BEAKER) (test code = 1095) No growth in 5 days [id number] 12:46:00* Test Item Value Reference Range Interpretation Comments PARTIAL THROMBOPLASTIN TIME (BEAKER) (test code = 760) 51.0 seconds 22.5-36.0 H POCT-GLUCOSE [id number] 12:44:00* Test Item Value Reference Range Interpretation Comments POC-GLUCOSE METER (BEAKER) (test code = 1538) 213 mg/dL 70-110 H : TESTED AT [address], [address]: Marketing Strategy Manager/Clinical Laboratory Technician ID = [id number] for MARCIE VELASQUEZ U/S, ABDOMINAL, [id number] 11:45:00Abdomen limited area? Add comment if clarification is needed.->Gall BladderReason for exam:->Sepsis, prolonged ventilation concern for acalculous cholecystitisShould this be performed at the bedside?->YesFINAL REPORT TECHNIQUE: Grayscale ultrasound of the right abdomen. INDICATION: 53-year-old man with sepsis. COMPARISON: None. FINDINGS: MIDLINE VASCULATURE: Visualized inferior vena cava is patent. Main portal vein is patent. Maximum visualized aortic diameter is 2.1 cm. LIVER: Liver is normal in size and echogenicity with smooth contour. No focal lesion. BILIARY:Gallbladder: 1.8 cm shadowing stone in the gallbladder. No gallbladder wall thickening, pericholecystic fluid, or significant distention. Reported negative sonographic Ramírez sign.Common bile duct measures 0.4 cm, within normal limits. No intrahepatic biliary ductal dilatation. PANCREAS: Visualized portions of the pancreas are unremarkable. PERITONEUM: No free fluid. RIGHT KIDNEY: Right kidney is normal in size. No hydronephrosis. No sonographically evident mass. IMPRESSION:Cholelithiasis without specific evidence of acute cholecystitis. Signed: Carli Garrido MDReport Verified Date/Time: 12/22/2019 11:45:27 Reading Location: [address] Radiology Reading Room C METABOLIC [id number] 10:56:00* Test Item Value Reference Range Interpretation Comments SODIUM (BEAKER) (test code = 381) 138 meq/L 136-145 POTASSIUM (BEAKER) (test code = 379) 4.3 meq/L 3.5-5.1 CHLORIDE (BEAKER) (test code = 382) 110 meq/L 98-107 H CO2 (BEAKER) (test code = 355) 19 meq/L 22-29 L BLOOD UREA NITROGEN (BEAKER) (test code = 354) 25 mg/dL 7-21 H CREATININE (BEAKER) (test code = 358) 1.74 mg/dL 0.57-1.25 H GLUCOSE RANDOM (BEAKER) (test code = 652) 181 mg/dL 70-105 H CALCIUM (BEAKER) (test code = 697) 7.0 mg/dL 8.4-10.2 L EGFR (BEAKER) (test code = 1092) 41 mL/min/1.73 sq m ESTIMATED GFR IS NOT ACCURATE CREATININE CLEARANCE IN PREDICTING GLOMERULAR FILTRATION RATE. ESTIMATED GFR IS NOT APPLICABLE FOR DIALYSIS PATIENTS. Marketing Strategy Manager ID - LUISA [id number] 10:55:00* Test Item Value Reference Range Interpretation Comments PHOSPHORUS (BEAKER) (test code = 604) 3.5 mg/dL 2.3-4.7 Marketing Strategy Manager ID - LUISA [id number] 10:55:00* Test Item Value Reference Range Interpretation Comments MAGNESIUM (BEAKER) (test code = 627) 1.8 mg/dL 1.6-2.6 Marketing Strategy Manager ID - LUISA LBLOOD GAS, [id number] 10:19:00* Test Item Value Reference Range Interpretation Comments PH ARTERIAL (BEAKER) (test code = 383) 7.29 7.35-7.45 L PCO2 ARTERIAL (BEAKER) (test code = 384) 48 mmHg 35-45 H PO2 ARTERIAL (BEAKER) (test code = 385) 187 mmHg 80-90 H O2 SATURATION ARTERIAL (BEAKER) (test code = 386) 99.1 % 96.0 -97.0 H HCO3 ARTERIAL (BEAKER) (test code = 388) 22 mmol/L 21-29 BASE EXCESS ARTERIAL (BEAKER) (test code = 387) -4.3 mmol/L -2.0-3 .0 L PATIENT TEMPERATURE (BEAKER) (test code = 1818) 38.0 C FIO2 (BEAKER) (test code = 1819) 100.0 % THROMBOELASTOGRAPH (TEG)2019-12-22 06:40:00* Test Item Value Reference Range Interpretation Comments TEG ACTIVATED CLOTTING TIME (BEAKER) (test code = 1407) 16.8 minute s 4.0-7.0 H TEG FIBRINOGEN ACTIVITY (BEAKER) (test code = 1408) 48.9 degrees 61 .0-73.0 L TEG PLT. AGGREGATION (BEAKER) (test code = 1409) 76.6 MM 55.0- 65.0 H TGH ACTIVATED CLOTTING TIME (BEAKER) (test code = 1411) 11.0 minute s 4.0-7.0 H TGH FIBRINOGEN ACTIVITY (BEAKER) (test code = 1412) 63.0 degrees 61 .0-73.0 TGH PLT. AGGREGATION (BEAKER) (test code = 1413) 58.9 MM 55.0- 65.0 CBC W/PLT COUNT & AUTO [id number] 06:20:00* Test Item Value Reference Range Interpretation Comments WHITE BLOOD CELL COUNT (BEAKER) (test code = 775) 22.2 K/ L 3.5- 10.5 H RED BLOOD CELL COUNT (BEAKER) (test code = 761) 4.29 M/ L 4.63-6 .08 L HEMOGLOBIN (BEAKER) (test code = 410) 12.0 GM/DL 13.7-17.5 L HEMATOCRIT (BEAKER) (test code = 411) 38.8 % 40.1-51.0 L MEAN CORPUSCULAR VOLUME (BEAKER) (test code = 753) 90.4 fL 79. 0-92.2 MEAN CORPUSCULAR HEMOGLOBIN (BEAKER) (test code = 751) 28.0 pg 25.7-32.2 MEAN CORPUSCULAR HEMOGLOBIN CONC (BEAKER) (test code = 752) 30.9 GM/DL 32.3-36.5 L RED CELL DISTRIBUTION WIDTH (BEAKER) (test code = 412) 15.2 % 11.6-14.4 H PLATELET COUNT (BEAKER) (test code = 756) 99 K/CU MM 150-450 L MEAN PLATELET VOLUME (BEAKER) (test code = 754) 13.7 fL 9.4-12 .4 H NUCLEATED RED BLOOD CELLS (BEAKER) (test code = 413) 0 /100 WBC 0 -0 (CELLAVISION MANUAL DIFF)2019-12-22 06:20:00* Test Item Value Reference Range Interpretation Comments NEUTROPHILS - REL (CELLAVISION)(BEAKER) (test code = 2816) 83 % MONOCYTES - REL (CELLAVISION)(BEAKER) (test code = 2818) 5 % METAMYELOCYTES - REL (CELLAVISION)(BEAKER) (test code = 2821) 1 % 0-0 H MYELOCYTES - REL (CELLAVISION)(BEAKER) (test code = 2822) 2 % 0-0 H BANDS - REL (CELLAVISION)(BEAKER) (test code = 2826) 8 % 0 -10 ATYPICAL LYMPHOCYTES - REL (CELLAVISION)(BEAKER) (test code = 2829) 1 % 0-0 H NEUTROPHILS - ABS (CELLAVISION)(BEAKER) (test code = 2830) 18.43 K/ul 1.78-5.38 H MONOCYTES - ABS (CELLAVISION)(BEAKER) (test code = 2832) 1.11 K/uL 0.30-0.82 H METAMYELOCYTES - ABS (CELLAVISION)(BEAKER) (test code = 2836 ) 0.22 K/uL 0.00-0.00 H MYELOCYTES-ABS (CELLAVISION)(BEAKER) (test code = 2837) 0.44 K/uL 0.00-0.00 H BANDS - ABS (CELLAVISION)(BEAKER) (test code = 5870) 1.78 K/uL 0 .00-0.80 H ATYPICAL LYMPHOCYTES - ABS (CELLAVISION)(BEAKER) (test code = 2932) 0.22 K/uL 0.00-0.00 H TOTAL COUNTED (BEAKER) (test code = 1351) 100 MANUAL NRBC PER 100 CELLS (BEAKER) (test code = 1353) 1 /100 WBC 0-0 H WBC MORPHOLOGY (BEAKER) (test code = 487) Normal LARGE PLT(BEAKER) (test code = 2156) Present POLYCHROMATOPHILLIC RBCS(BEAKER) (test code = 478) 1+ few ANISOCYTOSIS (BEAKER) (test code = 961) 1+ few MICROCYTES (BEAKER) (test code = 965) 1+ few POIKILOCYTES (BEAKER) (test code = 966) 1+ few SCHISTOCYTES (BEAKER) (test code = 765) 1+ few SPHEROCYTES (BEAKER) (test code = 768) 1+ few ARTIFACT (CELLAVISION)(BEAKER) (test code = 3432) Present PLATELET CONCENTRATION (CELLAVISION)(BEAKER) (test code = 3438) Dec reased Marketing Strategy Manager ID - [id number] ID - YouiUser comments: Slide comments: COMPREHENSIVE METABOLIC [id number] 04:54:00* Test Item Value Reference Range Interpretation Comments TOTAL PROTEIN (BEAKER) (test code = 770) 7.0 gm/dL 6.0-8.3 ALBUMIN (BEAKER) (test code = 1145) 2.8 g/dL 3.5-5.0 L ALKALINE PHOSPHATASE (BEAKER) (test code = 346) 387 U/L 40-150 H BILIRUBIN TOTAL (BEAKER) (test code = 377) 1.0 mg/dL 0.2-1.2 SODIUM (BEAKER) (test code = 381) 136 meq/L 136-145 POTASSIUM (BEAKER) (test code = 379) 5.7 meq/L 3.5-5.1 H CHLORIDE (BEAKER) (test code = 382) 105 meq/L 98-107 CO2 (BEAKER) (test code = 355) 22 meq/L 22-29 BLOOD UREA NITROGEN (BEAKER) (test code = 354) 30 mg/dL 7-21 H CREATININE (BEAKER) (test code = 358) 2.14 mg/dL 0.57-1.25 H GLUCOSE RANDOM (BEAKER) (test code = 652) 259 mg/dL 70-105 H CALCIUM (BEAKER) (test code = 697) 8.8 mg/dL 8.4-10.2 AST (SGOT) (BEAKER) (test code = 353) 123 U/L 5-34 H ALT (SGPT) (BEAKER) (test code = 347) 130 U/L 6-55 H EGFR (BEAKER) (test code = 1092) 32 mL/min/1.73 sq m ESTIMATED GFR IS NOT ACCURATE CREATININE CLEARANCE IN PREDICTING GLOMERULAR FILTRATION RATE. ESTIMATED GFR IS NOT APPLICABLE FOR DIALYSIS PATIENTS. Marketing Strategy Manager ID - LUISA [id number] 04:49:00* Test Item Value Reference Range Interpretation Comments PHOSPHORUS (BEAKER) (test code = 604) 5.5 mg/dL 2.3-4.7 H Marketing Strategy Manager ID - LUISA [id number] 04:49:00* Test Item Value Reference Range Interpretation Comments MAGNESIUM (BEAKER) (test code = 627) 2.3 mg/dL 1.6-2.6 Marketing Strategy Manager ID - LUISA [id number] 04:39:00* Test Item Value Reference Range Interpretation Comments PARTIAL THROMBOPLASTIN TIME (BEAKER) (test code = 760) 62.9 seconds 22.5-36.0 H LACTIC ACID, [id number] 04:30:00* Test Item Value Reference Range Interpretation Comments LACTATE BLOOD ARTERIAL (2) (BEAKER) (test code = 2874) 1.5 mmol/L 0.5-2.2 Specimen slightly hemolyzed Marketing Strategy Manager ID - LUISA LBLOOD GAS, [id number] 04:23:00* Test Item Value Reference Range Interpretation Comments PH ARTERIAL (BEAKER) (test code = 383) 7.24 7.35-7.45 L PCO2 ARTERIAL (BEAKER) (test code = 384) 58 mmHg 35-45 H PO2 ARTERIAL (BEAKER) (test code = 385) 106 mmHg 80-90 H O2 SATURATION ARTERIAL (BEAKER) (test code = 386) 97.3 % 96.0 -97.0 H HCO3 ARTERIAL (BEAKER) (test code = 388) 25 mmol/L 21-29 BASE EXCESS ARTERIAL (BEAKER) (test code = 387) -3.5 mmol/L -2.0-3 .0 L PATIENT TEMPERATURE (BEAKER) (test code = 1818) 35.5 C FIO2 (BEAKER) (test code = 1819) 100.0 % POCT-GLUCOSE [id number] 02:28:00* Test Item Value Reference Range Interpretation Comments POC-GLUCOSE METER (BEAKER) (test code = 1538) 216 mg/dL 70-110 H : TESTED AT [facility] [address] [facility] [place], [address]: Marketing Strategy Manager/Clinical Laboratory Technician ID = [id number] for Rigo Lord CALCIUM, [id number] 23:13:00* Test Item Value Reference Range Interpretation Comments CALCIUM IONIZED (BEAKER) (test code = 698) 1.04 mmol/L 1.12-1.27 L PH, BLOOD (BEAKER) (test code = 1810) 7.24 BLOOD GAS, [id number] 23:12:00* Test Item Value Reference Range Interpretation Comments PH ARTERIAL (BEAKER) (test code = 383) 7.24 7.35-7.45 L PCO2 ARTERIAL (BEAKER) (test code = 384) 61 mmHg 35-45 H PO2 ARTERIAL (BEAKER) (test code = 385) 100 mmHg 80-90 H O2 SATURATION ARTERIAL (BEAKER) (test code = 386) 96.4 % 96.0 -97.0 HCO3 ARTERIAL (BEAKER) (test code = 388) 25 mmol/L 21-29 BASE EXCESS ARTERIAL (BEAKER) (test code = 387) -2.9 mmol/L -2.0-3 .0 L PATIENT TEMPERATURE (BEAKER) (test code = 1818) 37.0 C FIO2 (BEAKER) (test code = 1819) 100.0 % BASIC METABOLIC [id number] 22:16:00* Test Item Value Reference Range Interpretation Comments SODIUM (BEAKER) (test code = 381) 139 meq/L 136-145 POTASSIUM (BEAKER) (test code = 379) 3.7 meq/L 3.5-5.1 CHLORIDE (BEAKER) (test code = 382) 116 meq/L 98-107 H CO2 (BEAKER) (test code = 355) 16 meq/L 22-29 L BLOOD UREA NITROGEN (BEAKER) (test code = 354) 26 mg/dL 7-21 H CREATININE (BEAKER) (test code = 358) 1.56 mg/dL 0.57-1.25 H GLUCOSE RANDOM (BEAKER) (test code = 652) 201 mg/dL 70-105 H CALCIUM (BEAKER) (test code = 697) 5.6 mg/dL 8.4-10.2 LL EGFR (BEAKER) (test code = 1092) 47 mL/min/1.73 sq m ESTIMATED GFR IS NOT ACCURATE CREATININE CLEARANCE IN PREDICTING GLOMERULAR FILTRATION RATE. ESTIMATED GFR IS NOT APPLICABLE FOR DIALYSIS PATIENTS. Marketing Strategy Manager ID - [id number] 22:09:00* Test Item Value Reference Range Interpretation Comments PHOSPHORUS (BEAKER) (test code = 604) 3.2 mg/dL 2.3-4.7 Marketing Strategy Manager ID - [id number] 22:09:00* Test Item Value Reference Range Interpretation Comments MAGNESIUM (BEAKER) (test code = 627) 1.5 mg/dL 1.6-2.6 L Marketing Strategy Manager ID - [id number] 21:51:00* Test Item Value Reference Range Interpretation Comments PARTIAL THROMBOPLASTIN TIME (BEAKER) (test code = 760) 60.7 seconds 22.5-36.0 H BLOOD GAS, [id number] 18:49:00* Test Item Value Reference Range Interpretation Comments PH ARTERIAL (BEAKER) (test code = 383) 7.17 7.35-7.45 LL PCO2 ARTERIAL (BEAKER) (test code = 384) 69 mmHg 35-45 H PO2 ARTERIAL (BEAKER) (test code = 385) 139 mmHg 80-90 H O2 SATURATION ARTERIAL (BEAKER) (test code = 386) 97.9 % 96.0 -97.0 H HCO3 ARTERIAL (BEAKER) (test code = 388) 24 mmol/L 21-29 BASE EXCESS ARTERIAL (BEAKER) (test code = 387) -4.8 mmol/L -2.0-3 .0 L PATIENT TEMPERATURE (BEAKER) (test code = 1818) 37.5 C FIO2 (BEAKER) (test code = 1819) 100.0 % POCT-GLUCOSE [id number] 18:18:00* Test Item Value Reference Range Interpretation Comments POC-GLUCOSE METER (BEAKER) (test code = 1538) 240 mg/dL 70-110 H : TESTED AT [address], [id number]: Marketing Strategy Manager/Clinical Laboratory Technician ID = [id number] for BRIAN MILLIGAN [id number] 17:29:00* Test Item Value Reference Range Interpretation Comments PARTIAL THROMBOPLASTIN TIME (BEAKER) (test code = 760) 63.4 seconds 22.5-36.0 H LACTIC ACID, [id number] 17:01:00* Test Item Value Reference Range Interpretation Comments LACTATE BLOOD ARTERIAL (2) (BEAKER) (test code = 2874) 1.3 mmol/L 0.5-2.2 Specimen moderately hemolyzed Marketing Strategy Manager ID - CDPBLOOD GAS, [id number] 16:48:00* Test Item Value Reference Range Interpretation Comments PH ARTERIAL (BEAKER) (test code = 383) 7.14 7.35-7.45 LL PCO2 ARTERIAL (BEAKER) (test code = 384) 79 mmHg 35-45 HH PO2 ARTERIAL (BEAKER) (test code = 385) 135 mmHg 80-90 H O2 SATURATION ARTERIAL (BEAKER) (test code = 386) 97.8 % 96.0 -97.0 H HCO3 ARTERIAL (BEAKER) (test code = 388) 27 mmol/L 21-29 BASE EXCESS ARTERIAL (BEAKER) (test code = 387) -3.9 mmol/L -2.0-3 .0 L PATIENT TEMPERATURE (BEAKER) (test code = 1818) 36.5 C FIO2 (BEAKER) (test code = 1819) 100.0 % (CELLAVISION MANUAL DIFF)[id number] 16:40:00* Test Item Value Reference Range Interpretation Comments NEUTROPHILS - REL (CELLAVISION)(BEAKER) (test code = 2816) 82 % LYMPHOCYTES - REL (CELLAVISION)(BEAKER) (test code = 2817) 4 % MONOCYTES - REL (CELLAVISION)(BEAKER) (test code = 2818) 1 % EOSINOPHILS - REL (CELLAVISION)(BEAKER) (test code = 2819) 1 % METAMYELOCYTES - REL (CELLAVISION)(BEAKER) (test code = 2821) 2 % 0-0 H BANDS - REL (CELLAVISION)(BEAKER) (test code = 2826) 10 % 0 -10 NEUTROPHILS - ABS (CELLAVISION)(BEAKER) (test code = 2830) 16.15 K/ul 1.78-5.38 H LYMPHOCYTES - ABS (CELLAVISION)(BEAKER) (test code = 2831) 0.79 K/ul 1.32-3.57 L MONOCYTES - ABS (CELLAVISION)(BEAKER) (test code = 2832) 0.20 K/uL 0.30-0.82 L EOSINOPHILS - ABS (CELLAVISION)(BEAKER) (test code = 2834) 0.20 K/uL 0.04-0.54 METAMYELOCYTES - ABS (CELLAVISION)(BEAKER) (test code = 2836 ) 0.39 K/uL 0.00-0.00 H BANDS - ABS (CELLAVISION)(BEAKER) (test code = 2840) 1.97 K/uL 0 .00-0.80 H TOTAL COUNTED (BEAKER) (test code = 1351) 100 GIANT PLATELETS (BEAKER) (test code = 313) Present VACUOLATED NEUTROPHILS (BEAKER) (test code = 483) Present POLYCHROMATOPHILLIC RBCS(BEAKER) (test code = 478) 1+ few ANISOCYTOSIS (BEAKER) (test code = 961) 2+ moderate MICROCYTES (BEAKER) (test code = 965) 2+ moderate POIKILOCYTES (BEAKER) (test code = 966) 2+ moderate SPHEROCYTES (BEAKER) (test code = 768) 1+ few ELLIPTOCYTES (BEAKER) (test code = 962) 1+ few ARTIFACT (CELLAVISION)(BEAKER) (test code = 3432) Present HELMET CELLS (CELLAVISION)(BEAKER) (test code = 3434) 1+ few PLATELET CONCENTRATION (CELLAVISION)(BEAKER) (test code = 3438) Dec reased Marketing Strategy Manager ID - [id number] ID - Edi comments: Slide comments: BASIC METABOLIC [id number] 16:16:00* Test Item Value Reference Range Interpretation Comments SODIUM (BEAKER) (test code = 381) 142 meq/L 136-145 POTASSIUM (BEAKER) (test code = 379) 3.9 meq/L 3.5-5.1 Specimen slightly hemolyzed CHLORIDE (BEAKER) (test code = 382) 115 meq/L 98-107 H CO2 (BEAKER) (test code = 355) 21 meq/L 22-29 L BLOOD UREA NITROGEN (BEAKER) (test code = 354) 32 mg/dL 7-21 H CREATININE (BEAKER) (test code = 358) 1.76 mg/dL 0.57-1.25 H Specimen slightly hemolyzed GLUCOSE RANDOM (BEAKER) (test code = 652) 211 mg/dL 70-105 H CALCIUM (BEAKER) (test code = 697) 6.2 mg/dL 8.4-10.2 L EGFR (BEAKER) (test code = 1092) 41 mL/min/1.73 sq m ESTIMATED GFR IS NOT ACCURATE CREATININE CLEARANCE IN PREDICTING GLOMERULAR FILTRATION RATE. ESTIMATED GFR IS NOT APPLICABLE FOR DIALYSIS PATIENTS. Marketing Strategy Manager ID - CDPCBC W/PLT COUNT & AUTO [id number] 15:58:00* Test Item Value Reference Range Interpretation Comments WHITE BLOOD CELL COUNT (BEAKER) (test code = 775) 19.6 K/ L 3.5- 10.5 H RED BLOOD CELL COUNT (BEAKER) (test code = 761) 3.92 M/ L 4.63-6 .08 L HEMOGLOBIN (BEAKER) (test code = 410) 11.1 GM/DL 13.7-17.5 L HEMATOCRIT (BEAKER) (test code = 411) 35.4 % 40.1-51.0 L MEAN CORPUSCULAR VOLUME (BEAKER) (test code = 753) 90.3 fL 79. 0-92.2 MEAN CORPUSCULAR HEMOGLOBIN (BEAKER) (test code = 751) 28.3 pg 25.7-32.2 MEAN CORPUSCULAR HEMOGLOBIN CONC (BEAKER) (test code = 752) 31.4 GM/DL 32.3-36.5 L RED CELL DISTRIBUTION WIDTH (BEAKER) (test code = 412) 14.7 % 11.6-14.4 H PLATELET COUNT (BEAKER) (test code = 756) 88 K/CU MM 150-450 L MEAN PLATELET VOLUME (BEAKER) (test code = 754) 12.4 fL 9.4-12 .4 NUCLEATED RED BLOOD CELLS (BEAKER) (test code = 413) 0 /100 WBC 0 -0 POCT-GLUCOSE [id number] 13:19:00* Test Item Value Reference Range Interpretation Comments POC-GLUCOSE METER (BEAKER) (test code = 1538) 132 mg/dL 70-110 H : TESTED AT [facility] [address] [facility] [place], [id number]: Marketing Strategy Manager/Clinical Laboratory Technician ID = [id number] for BRIAN MILLIGAN RAD, CHEST, 1 VIEW, NON [id number] 13:03:00Reason for exam:->Hypoxia, high procalShould this be performed at the bedside?->YesFINAL REPORT CLINICAL HISTORY: Hypoxia, high procal TECHNIQUE: 1 view of the chest. COMPARISON: 12/15/2019 IMPRESSION: The supporting lines and tubes are similar appearing. Diffuse bilateral airspace opacities are similar appearing versus slightly increased. Small pleural effusions cannot be excluded. The cardiomediastinal silhouette is magnified by technique. Signed: Damian Huang MDReport Verified Date/Time: 12/21/2019 13:03:34 Reading Location: [facility] Radiology Reading Room C METABOLIC [id number] 11:51:00* Test Item Value Reference Range Interpretation Comments SODIUM (BEAKER) (test code = 381) 137 meq/L 136-145 POTASSIUM (BEAKER) (test code = 379) 4.6 meq/L 3.5-5.1 CHLORIDE (BEAKER) (test code = 382) 103 meq/L 98-107 CO2 (BEAKER) (test code = 355) 22 meq/L 22-29 BLOOD UREA NITROGEN (BEAKER) (test code = 354) 45 mg/dL 7-21 H CREATININE (BEAKER) (test code = 358) 2.75 mg/dL 0.57-1.25 H GLUCOSE RANDOM (BEAKER) (test code = 652) 264 mg/dL 70-105 H CALCIUM (BEAKER) (test code = 697) 8.0 mg/dL 8.4-10.2 L EGFR (BEAKER) (test code = 1092) 24 mL/min/1.73 sq m ESTIMATED GFR IS NOT ACCURATE CREATININE CLEARANCE IN PREDICTING GLOMERULAR FILTRATION RATE. ESTIMATED GFR IS NOT APPLICABLE FOR DIALYSIS PATIENTS. Marketing Strategy Manager ID - DBBLOOD GAS, [id number] 11:25:00* Test Item Value Reference Range Interpretation Comments PH ARTERIAL (BEAKER) (test code = 383) 7.29 7.35-7.45 L PCO2 ARTERIAL (BEAKER) (test code = 384) 33 mmHg 35-45 L PO2 ARTERIAL (BEAKER) (test code = 385) 80 mmHg 80-90 O2 SATURATION ARTERIAL (BEAKER) (test code = 386) 94.4 % 96.0 -97.0 L HCO3 ARTERIAL (BEAKER) (test code = 388) 16 mmol/L 21-29 L BASE EXCESS ARTERIAL (BEAKER) (test code = 387) -9.7 mmol/L -2.0-3 .0 L PATIENT TEMPERATURE (BEAKER) (test code = 1818) 37.5 C FIO2 (BEAKER) (test code = 1819) 100.0 % CBC W/PLT COUNT & AUTO [id number] 10:24:00* Test Item Value Reference Range Interpretation Comments WHITE BLOOD CELL COUNT (BEAKER) (test code = 775) 10.8 K/ L 3.5- 10.5 H RED BLOOD CELL COUNT (BEAKER) (test code = 761) 3.91 M/ L 4.63-6 .08 L HEMOGLOBIN (BEAKER) (test code = 410) 10.8 GM/DL 13.7-17.5 L HEMATOCRIT (BEAKER) (test code = 411) 34.4 % 40.1-51.0 L MEAN CORPUSCULAR VOLUME (BEAKER) (test code = 753) 88.0 fL 79. 0-92.2 MEAN CORPUSCULAR HEMOGLOBIN (BEAKER) (test code = 751) 27.6 pg 25.7-32.2 MEAN CORPUSCULAR HEMOGLOBIN CONC (BEAKER) (test code = 752) 31.4 GM/DL 32.3-36.5 L RED CELL DISTRIBUTION WIDTH (BEAKER) (test code = 412) 14.3 % 11.6-14.4 PLATELET COUNT (BEAKER) (test code = 756) 80 K/CU MM 150-450 L MEAN PLATELET VOLUME (BEAKER) (test code = 754) 12.6 fL 9.4-12 .4 H NUCLEATED RED BLOOD CELLS (BEAKER) (test code = 413) 1 /100 WBC 0 -0 H (CELLAVISION MANUAL DIFF)2019-12-21 10:24:00* Test Item Value Reference Range Interpretation Comments NEUTROPHILS - REL (CELLAVISION)(BEAKER) (test code = 2816) 83 % LYMPHOCYTES - REL (CELLAVISION)(BEAKER) (test code = 2817) 4 % MONOCYTES - REL (CELLAVISION)(BEAKER) (test code = 2818) 1 % EOSINOPHILS - REL (CELLAVISION)(BEAKER) (test code = 2819) 1 % METAMYELOCYTES - REL (CELLAVISION)(BEAKER) (test code = 2821) 1 % 0-0 H MYELOCYTES - REL (CELLAVISION)(BEAKER) (test code = 2822) 2 % 0-0 H PROMYELOCYTES - REL (CELLAVSION)(BEAKER) (test code = 2825) 1 % 0-0 H BANDS - REL (CELLAVISION)(BEAKER) (test code = 2826) 7 % 0 -10 NEUTROPHILS - ABS (CELLAVISION)(BEAKER) (test code = 2830) 8.96 K/ul 1.78-5.38 H LYMPHOCYTES - ABS (CELLAVISION)(BEAKER) (test code = 2831) 0.43 K/ul 1.32-3.57 L MONOCYTES - ABS (CELLAVISION)(BEAKER) (test code = 2832) 0.11 K/uL 0.30-0.82 L EOSINOPHILS - ABS (CELLAVISION)(BEAKER) (test code = 2834) 0.11 K/uL 0.04-0.54 METAMYELOCYTES - ABS (CELLAVISION)(BEAKER) (test code = 2836 ) 0.11 K/uL 0.00-0.00 H MYELOCYTES-ABS (CELLAVISION)(BEAKER) (test code = 2837) 0.22 K/uL 0.00-0.00 H PROMYELOCYTES - ABS (CELLAVISION)(BEAKER) (test code = 2838) 0.11 K/uL 0.00-0.00 H BANDS - ABS (CELLAVISION)(BEAKER) (test code = 2840) 0.76 K/uL 0 .00-0.80 TOTAL COUNTED (BEAKER) (test code = 1351) 100 PLT MORPHOLOGY (BEAKER) (test code = 486) Normal TOXIC GRANULATION (BEAKER) (test code = 771) Present HYPOCHROMIA (BEAKER) (test code = 963) 1+ few ARTIFACT (CELLAVISION)(BEAKER) (test code = 3432) Present PLATELET CONCENTRATION (CELLAVISION)(BEAKER) (test code = 3438) Dec reased Marketing Strategy Manager ID - Yasmine Caseyangela comments: Slide comments: POCT-GLUCOSE [id number] 09:17:00* Test Item Value Reference Range Interpretation Comments POC-GLUCOSE METER (BEAKER) (test code = 1538) 194 mg/dL 70-110 H : TESTED AT [facility] [address] [facility] [place], [id number]: Marketing Strategy Manager/Clinical Laboratory Technician ID = [id number] for BRIAN MILLIGAN THROMBOELASTOGRAPH (TEG)2019-12-21 09:00:00* Test Item Value Reference Range Interpretation Comments TEG ACTIVATED CLOTTING TIME (BEAKER) (test code = 1407) 50.2 minute s 4.0-7.0 H TEG FIBRINOGEN ACTIVITY (BEAKER) (test code = 1408) 5.7 degrees 61 .0-73.0 L TEG PLT. AGGREGATION (BEAKER) (test code = 1409) 70.2 MM 55.0- 65.0 H TGH ACTIVATED CLOTTING TIME (BEAKER) (test code = 1411) 8.1 minutes 4.0-7.0 H TGH FIBRINOGEN ACTIVITY (BEAKER) (test code = 1412) 62.7 degrees 61 .0-73.0 TGH PLT. AGGREGATION (BEAKER) (test code = 1413) 70.7 MM 55.0- 65.0 H [id number] 06:51:00* Test Item Value Reference Range Interpretation Comments FERRITIN (BEAKER) (test code = 361) 3871.49 ng/mL 5.00-275.00 H Marketing Strategy Manager ID - IVELISSE WBLOOD GAS, [id number] 05:30:00* Test Item Value Reference Range Interpretation Comments PH ARTERIAL (BEAKER) (test code = 383) 7.36 7.35-7.45 PCO2 ARTERIAL (BEAKER) (test code = 384) 41 mmHg 35-45 PO2 ARTERIAL (BEAKER) (test code = 385) 49 mmHg 80-90 L O2 SATURATION ARTERIAL (BEAKER) (test code = 386) 79.5 % 96.0 -97.0 L HCO3 ARTERIAL (BEAKER) (test code = 388) 22 mmol/L 21-29 BASE EXCESS ARTERIAL (BEAKER) (test code = 387) -2.6 mmol/L -2.0-3 .0 L PATIENT TEMPERATURE (BEAKER) (test code = 1818) 38.5 C FIO2 (BEAKER) (test code = 1819) 80.0 % [id number] 05:30:00* Test Item Value Reference Range Interpretation Comments PROCALCITONIN (BEAKER) (test code = 3036) 7.13 ng/mL <0.05 H SEPSIS RISK (ng/mL)Low: 0.05-0.50Intermediate: 0.51-2.00High: > =[id number] 05:19:00* Test Item Value Reference Range Interpretation Comments PHOSPHORUS (BEAKER) (test code = 604) 1.3 mg/dL 2.3-4.7 LL Marketing Strategy Manager ID Monisha OVIEDO [id number] 05:18:00* Test Item Value Reference Range Interpretation Comments PARTIAL THROMBOPLASTIN TIME (BEAKER) (test code = 760) 51.5 seconds 22.5-36.0 H COMPREHENSIVE METABOLIC [id number] 05:17:00* Test Item Value Reference Range Interpretation Comments TOTAL PROTEIN (BEAKER) (test code = 770) 6.4 gm/dL 6.0-8.3 ALBUMIN (BEAKER) (test code = 1145) 2.7 g/dL 3.5-5.0 L ALKALINE PHOSPHATASE (BEAKER) (test code = 346) 410 U/L 40-150 H BILIRUBIN TOTAL (BEAKER) (test code = 377) 0.7 mg/dL 0.2-1.2 SODIUM (BEAKER) (test code = 381) 136 meq/L 136-145 POTASSIUM (BEAKER) (test code = 379) 4.9 meq/L 3.5-5.1 CHLORIDE (BEAKER) (test code = 382) 105 meq/L 98-107 CO2 (BEAKER) (test code = 355) 23 meq/L 22-29 BLOOD UREA NITROGEN (BEAKER) (test code = 354) 46 mg/dL 7-21 H CREATININE (BEAKER) (test code = 358) 2.92 mg/dL 0.57-1.25 H GLUCOSE RANDOM (BEAKER) (test code = 652) 296 mg/dL 70-105 H CALCIUM (BEAKER) (test code = 697) 8.0 mg/dL 8.4-10.2 L AST (SGOT) (BEAKER) (test code = 353) 133 U/L 5-34 H ALT (SGPT) (BEAKER) (test code = 347) 120 U/L 6-55 H EGFR (BEAKER) (test code = 1092) 23 mL/min/1.73 sq m ESTIMATED GFR IS NOT ACCURATE CREATININE CLEARANCE IN PREDICTING GLOMERULAR FILTRATION RATE. ESTIMATED GFR IS NOT APPLICABLE FOR DIALYSIS PATIENTS. Marketing Strategy Manager ID - IVELISSE [id number] 05:16:00* Test Item Value Reference Range Interpretation Comments MAGNESIUM (BEAKER) (test code = 627) 2.2 mg/dL 1.6-2.6 Marketing Strategy Manager ID - IVELISSE WLACTATE DEHYDROGENASE (LDH)2019-12-21 05:16:00* Test Item Value Reference Range Interpretation Comments LACTATE DEHYDROGENASE (BEAKER) (test code = 635) 969 U/L 125-2 20 H Marketing Strategy Manager ID - IVELISSE WC-REACTIVE [id number] 05:16:00* Test Item Value Reference Range Interpretation Comments C-REACTIVE PROTEIN (BEAKER) (test code = 676) 15.55 mg/dL 0.00-0.5 0 H Marketing Strategy Manager ID - IVELISSE WLACTIC ACID, [id number] 05:06:00* Test Item Value Reference Range Interpretation Comments LACTATE BLOOD ARTERIAL (2) (BEAKER) (test code = 2874) 2.3 mmol/L 0.5-2.2 H Marketing Strategy Manager ID - DBBLOOD GAS, [id number] 00:52:00* Test Item Value Reference Range Interpretation Comments PH ARTERIAL (BEAKER) (test code = 383) 7.36 7.35-7.45 PCO2 ARTERIAL (BEAKER) (test code = 384) 45 mmHg 35-45 PO2 ARTERIAL (BEAKER) (test code = 385) 66 mmHg 80-90 L O2 SATURATION ARTERIAL (BEAKER) (test code = 386) 88.4 % 96.0 -97.0 L HCO3 ARTERIAL (BEAKER) (test code = 388) 24 mmol/L 21-29 BASE EXCESS ARTERIAL (BEAKER) (test code = 387) -0.7 mmol/L -2.0-3 .0 PATIENT TEMPERATURE (BEAKER) (test code = 1818) 39.7 C FIO2 (BEAKER) (test code = 1819) 80.0 % POCT-GLUCOSE [id number] 00:46:00* Test Item Value Reference Range Interpretation Comments POC-GLUCOSE METER (BEAKER) (test code = 1538) 237 mg/dL 70-110 H : TESTED AT [facility] [address] [facility] [place], [address]: Marketing Strategy Manager/Clinical Laboratory Technician ID = [id number] for Rigo Lord POCT-GLUCOSE [id number] 00:40:00* Test Item Value Reference Range Interpretation Comments POC-GLUCOSE METER (BEAKER) (test code = 1538) 235 mg/dL 70-110 H : TESTED AT [place] [id number] [facility] [place], [address]: Marketing Strategy Manager/Clinical Laboratory Technician ID = [id number] for WAGNER CORONADO [id number] 21:30:00* Test Item Value Reference Range Interpretation Comments PHOSPHORUS (BEAKER) (test code = 604) 2.3 mg/dL 2.3-4.7 Marketing Strategy Manager ID - [id number] 21:30:00* Test Item Value Reference Range Interpretation Comments MAGNESIUM (BEAKER) (test code = 627) 2.1 mg/dL 1.6-2.6 Marketing Strategy Manager ID - BSBASIC METABOLIC [id number] 21:30:00* Test Item Value Reference Range Interpretation Comments SODIUM (BEAKER) (test code = 381) 137 meq/L 136-145 POTASSIUM (BEAKER) (test code = 379) 4.7 meq/L 3.5-5.1 CHLORIDE (BEAKER) (test code = 382) 105 meq/L 98-107 CO2 (BEAKER) (test code = 355) 24 meq/L 22-29 BLOOD UREA NITROGEN (BEAKER) (test code = 354) 30 mg/dL 7-21 H CREATININE (BEAKER) (test code = 358) 1.89 mg/dL 0.57-1.25 H GLUCOSE RANDOM (BEAKER) (test code = 652) 256 mg/dL 70-105 H CALCIUM (BEAKER) (test code = 697) 8.2 mg/dL 8.4-10.2 L EGFR (BEAKER) (test code = 1092) 37 mL/min/1.73 sq m ESTIMATED GFR IS NOT ACCURATE CREATININE CLEARANCE IN PREDICTING GLOMERULAR FILTRATION RATE. ESTIMATED GFR IS NOT APPLICABLE FOR DIALYSIS PATIENTS. Marketing Strategy Manager ID - BS(CELLAVISION MANUAL DIFF)2019-12-20 16:45:00* Test Item Value Reference Range Interpretation Comments NEUTROPHILS - REL (CELLAVISION)(BEAKER) (test code = 2816) 88 % MONOCYTES - REL (CELLAVISION)(BEAKER) (test code = 2818) 4 % METAMYELOCYTES - REL (CELLAVISION)(BEAKER) (test code = 2821) 3 % 0-0 H BANDS - REL (CELLAVISION)(BEAKER) (test code = 2826) 5 % 0 -10 NEUTROPHILS - ABS (CELLAVISION)(BEAKER) (test code = 2830) 11.53 K/ul 1.78-5.38 H MONOCYTES - ABS (CELLAVISION)(BEAKER) (test code = 2832) 0.52 K/uL 0.30-0.82 METAMYELOCYTES - ABS (CELLAVISION)(BEAKER) (test code = 2836 ) 0.39 K/uL 0.00-0.00 H BANDS - ABS (CELLAVISION)(BEAKER) (test code = 2840) 0.66 K/uL 0 .00-0.80 TOTAL COUNTED (BEAKER) (test code = 1351) 100 SMUDGE CELLS (BEAKER) (test code = 1371) Present GIANT PLATELETS (BEAKER) (test code = 313) Present VACUOLATED NEUTROPHILS (BEAKER) (test code = 483) Present ANISOCYTOSIS (BEAKER) (test code = 961) 1+ few MICROCYTES (BEAKER) (test code = 965) 1+ few POIKILOCYTES (BEAKER) (test code = 966) 2+ moderate SPHEROCYTES (BEAKER) (test code = 768) 1+ few ELLIPTOCYTES (BEAKER) (test code = 962) 1+ few TEAR DROP CELLS (BEAKER) (test code = 481) 1+ few BASOPHILIC STIPPLING (BEAKER) (test code = 473) Present ARTIFACT (CELLAVISION)(BEAKER) (test code = 3432) Present PLATELET CONCENTRATION (CELLAVISION)(BEAKER) (test code = 3438) Dec reased Marketing Strategy Manager ID - oRdyOperator ID - Edi comments: Slide comments: BASIC METABOLIC [id number] 16:27:00* Test Item Value Reference Range Interpretation Comments SODIUM (BEAKER) (test code = 381) 139 meq/L 136-145 POTASSIUM (BEAKER) (test code = 379) 4.7 meq/L 3.5-5.1 CHLORIDE (BEAKER) (test code = 382) 104 meq/L 98-107 CO2 (BEAKER) (test code = 355) 28 meq/L 22-29 BLOOD UREA NITROGEN (BEAKER) (test code = 354) 30 mg/dL 7-21 H CREATININE (BEAKER) (test code = 358) 1.70 mg/dL 0.57-1.25 H GLUCOSE RANDOM (BEAKER) (test code = 652) 236 mg/dL 70-105 H CALCIUM (BEAKER) (test code = 697) 8.3 mg/dL 8.4-10.2 L EGFR (BEAKER) (test code = 1092) 42 mL/min/1.73 sq m ESTIMATED GFR IS NOT ACCURATE CREATININE CLEARANCE IN PREDICTING GLOMERULAR FILTRATION RATE. ESTIMATED GFR IS NOT APPLICABLE FOR DIALYSIS PATIENTS. Marketing Strategy Manager ID - BSLACTIC ACID, [id number] 16:22:00* Test Item Value Reference Range Interpretation Comments LACTATE BLOOD ARTERIAL (2) (BEAKER) (test code = 2874) 1.7 mmol/L 0.5-2.2 Marketing Strategy Manager ID - BSBLOOD GAS, [id number] 16:18:00* Test Item Value Reference Range Interpretation Comments PH ARTERIAL (BEAKER) (test code = 383) 7.34 7.35-7.45 L PCO2 ARTERIAL (BEAKER) (test code = 384) 52 mmHg 35-45 H PO2 ARTERIAL (BEAKER) (test code = 385) 66 mmHg 80-90 L O2 SATURATION ARTERIAL (BEAKER) (test code = 386) 92.3 % 96.0 -97.0 L HCO3 ARTERIAL (BEAKER) (test code = 388) 28 mmol/L 21-29 BASE EXCESS ARTERIAL (BEAKER) (test code = 387) 0.9 mmol/L -2.0-3 .0 PATIENT TEMPERATURE (BEAKER) (test code = 1818) 36.5 C FIO2 (BEAKER) (test code = 1819) 80.0 % CBC W/PLT COUNT & AUTO [id number] 16:06:00* Test Item Value Reference Range Interpretation Comments WHITE BLOOD CELL COUNT (BEAKER) (test code = 775) 13.0 K/ L 3.5- 10.5 H RED BLOOD CELL COUNT (BEAKER) (test code = 761) 3.93 M/ L 4.63-6 .08 L HEMOGLOBIN (BEAKER) (test code = 410) 11.0 GM/DL 13.7-17.5 L HEMATOCRIT (BEAKER) (test code = 411) 34.1 % 40.1-51.0 L MEAN CORPUSCULAR VOLUME (BEAKER) (test code = 753) 86.8 fL 79. 0-92.2 MEAN CORPUSCULAR HEMOGLOBIN (BEAKER) (test code = 751) 28.0 pg 25.7-32.2 MEAN CORPUSCULAR HEMOGLOBIN CONC (BEAKER) (test code = 752) 32.3 GM/DL 32.3-36.5 RED CELL DISTRIBUTION WIDTH (BEAKER) (test code = 412) 14.0 % 11.6-14.4 PLATELET COUNT (BEAKER) (test code = 756) 64 K/CU MM 150-450 L MEAN PLATELET VOLUME (BEAKER) (test code = 754) 13.4 fL 9.4-12 .4 H NUCLEATED RED BLOOD CELLS (BEAKER) (test code = 413) 0 /100 WBC 0 -0 [id number] 13:24:00* Test Item Value Reference Range Interpretation Comments PARTIAL THROMBOPLASTIN TIME (BEAKER) (test code = 760) 40.5 seconds 22.5-36.0 H CBC W/PLT COUNT & AUTO [id number] 12:23:00* Test Item Value Reference Range Interpretation Comments WHITE BLOOD CELL COUNT (BEAKER) (test code = 775) 11.0 K/ L 3.5- 10.5 H RED BLOOD CELL COUNT (BEAKER) (test code = 761) 3.99 M/ L 4.63-6 .08 L HEMOGLOBIN (BEAKER) (test code = 410) 11.2 GM/DL 13.7-17.5 L HEMATOCRIT (BEAKER) (test code = 411) 33.9 % 40.1-51.0 L MEAN CORPUSCULAR VOLUME (BEAKER) (test code = 753) 85.0 fL 79. 0-92.2 MEAN CORPUSCULAR HEMOGLOBIN (BEAKER) (test code = 751) 28.1 pg 25.7-32.2 MEAN CORPUSCULAR HEMOGLOBIN CONC (BEAKER) (test code = 752) 33.0 GM/DL 32.3-36.5 RED CELL DISTRIBUTION WIDTH (BEAKER) (test code = 412) 13.6 % 11.6-14.4 PLATELET COUNT (BEAKER) (test code = 756) 76 K/CU MM 150-450 L MEAN PLATELET VOLUME (BEAKER) (test code = 754) 12.5 fL 9.4-12 .4 H NUCLEATED RED BLOOD CELLS (BEAKER) (test code = 413) 0 /100 WBC 0 -0 (CELLAVISION MANUAL DIFF)2019-12-20 12:23:00* Test Item Value Reference Range Interpretation Comments NEUTROPHILS - REL (CELLAVISION)(BEAKER) (test code = 2816) 90 % LYMPHOCYTES - REL (CELLAVISION)(BEAKER) (test code = 2817) 3 % MONOCYTES - REL (CELLAVISION)(BEAKER) (test code = 2818) 4 % METAMYELOCYTES - REL (CELLAVISION)(BEAKER) (test code = 2821) 1 % 0-0 H MYELOCYTES - REL (CELLAVISION)(BEAKER) (test code = 2822) 2 % 0-0 H ATYPICAL LYMPHOCYTES - REL (CELLAVISION)(BEAKER) (test code = 2829) 1 % 0-0 H NEUTROPHILS - ABS (CELLAVISION)(BEAKER) (test code = 2830) 9.90 K/ul 1.78-5.38 H LYMPHOCYTES - ABS (CELLAVISION)(BEAKER) (test code = 2831) 0.33 K/ul 1.32-3.57 L MONOCYTES - ABS (CELLAVISION)(BEAKER) (test code = 2832) 0.44 K/uL 0.30-0.82 METAMYELOCYTES - ABS (CELLAVISION)(BEAKER) (test code = 2836 ) 0.11 K/uL 0.00-0.00 H MYELOCYTES-ABS (CELLAVISION)(BEAKER) (test code = 2837) 0.22 K/uL 0.00-0.00 H ATYPICAL LYMPHOCYTES - ABS (CELLAVISION)(BEAKER) (test code = 2858) 0.11 K/uL 0.00-0.00 H TOTAL COUNTED (BEAKER) (test code = 1351) 100 MANUAL NRBC PER 100 CELLS (BEAKER) (test code = 1353) 1 /100 WBC 0-0 H RBC MORPHOLOGY (BEAKER) (test code = 762) Normal WBC MORPHOLOGY (BEAKER) (test code = 487) Normal PLT MORPHOLOGY (BEAKER) (test code = 486) Normal ARTIFACT (CELLAVISION)(BEAKER) (test code = 3432) Present PLATELET CONCENTRATION (CELLAVISION)(BEAKER) (test code = 3438) Dec reased Marketing Strategy Manager ID - Ryann Olson comments: Slide comments: POCT-GLUCOSE [id number] 12:22:00* Test Item Value Reference Range Interpretation Comments POC-GLUCOSE METER (BEAKER) (test code = 1538) 241 mg/dL 70-110 H : TESTED AT [address], [address]: Marketing Strategy Manager/Clinical Laboratory Technician ID = [id number] for WAGNER CORONADO BASIC METABOLIC [id number] 11:04:00* Test Item Value Reference Range Interpretation Comments SODIUM (BEAKER) (test code = 381) 136 meq/L 136-145 POTASSIUM (BEAKER) (test code = 379) 4.4 meq/L 3.5-5.1 Specimen slightly hemolyzed CHLORIDE (BEAKER) (test code = 382) 104 meq/L 98-107 CO2 (BEAKER) (test code = 355) 25 meq/L 22-29 BLOOD UREA NITROGEN (BEAKER) (test code = 354) 34 mg/dL 7-21 H CREATININE (BEAKER) (test code = 358) 1.73 mg/dL 0.57-1.25 H Specimen slightly hemolyzed GLUCOSE RANDOM (BEAKER) (test code = 652) 324 mg/dL 70-105 H CALCIUM (BEAKER) (test code = 697) 7.8 mg/dL 8.4-10.2 L EGFR (BEAKER) (test code = 1092) 41 mL/min/1.73 sq m ESTIMATED GFR IS NOT ACCURATE CREATININE CLEARANCE IN PREDICTING GLOMERULAR FILTRATION RATE. ESTIMATED GFR IS NOT APPLICABLE FOR DIALYSIS PATIENTS. Marketing Strategy Manager ID - LUISA [id number] 10:57:00* Test Item Value Reference Range Interpretation Comments MAGNESIUM (BEAKER) (test code = 627) 2.2 mg/dL 1.6-2.6 Specimen slightly hemolyzed Marketing Strategy Manager ID - LUISA [id number] 10:57:00* Test Item Value Reference Range Interpretation Comments PHOSPHORUS (BEAKER) (test code = 604) 2.4 mg/dL 2.3-4.7 Specimen slightly hemolyzed Marketing Strategy Manager ID - LUISA LBLOOD GAS, [id number] 10:26:00* Test Item Value Reference Range Interpretation Comments PH ARTERIAL (BEAKER) (test code = 383) 7.38 7.35-7.45 PCO2 ARTERIAL (BEAKER) (test code = 384) 44 mmHg 35-45 PO2 ARTERIAL (BEAKER) (test code = 385) 48 mmHg 80-90 L O2 SATURATION ARTERIAL (BEAKER) (test code = 386) 85.4 % 96.0 -97.0 L HCO3 ARTERIAL (BEAKER) (test code = 388) 25 mmol/L 21-29 BASE EXCESS ARTERIAL (BEAKER) (test code = 387) -0.2 mmol/L -2.0-3 .0 PATIENT TEMPERATURE (BEAKER) (test code = 1818) 36.0 C FIO2 (BEAKER) (test code = 1819) 90.0 % SPUTUM CULTURE + GRAM [id number] 08:16:00* Test Item Value Reference Range Interpretation Comments CULTURE (BEAKER) (test code = 1095) 4+ Normal respiratory stacie pre sent GRAM STAIN RESULT (BEAKER) (test code = 1123) 4+ WBCs GRAM STAIN RESULT (BEAKER) (test code = 65909) 0-5 epithelial cells GRAM STAIN RESULT (BEAKER) (test code = 40605) 3+ gram positive cocci in pairs and clusters GRAM STAIN RESULT (BEAKER) (test code = 460753) 1+ budding yeast POCT-GLUCOSE [id number] 06:23:00* Test Item Value Reference Range Interpretation Comments POC-GLUCOSE METER (BEAKER) (test code = 1538) 224 mg/dL 70-110 H : TESTED AT [facility] [address] [facility] [place], [id number]: Marketing Strategy Manager/Clinical Laboratory Technician ID = [id number] for DIANA NOGUERA THROMBOELASTOGRAPH (TEG)2019-12-20 06:09:00* Test Item Value Reference Range Interpretation Comments TEG ACTIVATED CLOTTING TIME (BEAKER) (test code = 1407) 8.3 minutes 4.0-7.0 H TEG FIBRINOGEN ACTIVITY (BEAKER) (test code = 1408) 60.6 degrees 61 .0-73.0 L TEG PLT. AGGREGATION (BEAKER) (test code = 1409) 74.9 MM 55.0- 65.0 H TGH ACTIVATED CLOTTING TIME (BEAKER) (test code = 1411) 4.4 minutes 4.0-7.0 TGH FIBRINOGEN ACTIVITY (BEAKER) (test code = 1412) 70.9 degrees 61 .0-73.0 TGH PLT. AGGREGATION (BEAKER) (test code = 1413) 73.3 MM 55.0- 65.0 H VANCOMYCIN LEVEL, [id number] 04:54:00* Test Item Value Reference Range Interpretation Comments VANCOMYCIN TROUGH (BEAKER) (test code = 522) 13.8 ug/mL 10.0-20.0 Marketing Strategy Manager ID - LUISA [id number] 04:42:00* Test Item Value Reference Range Interpretation Comments PHOSPHORUS (BEAKER) (test code = 604) 2.4 mg/dL 2.3-4.7 Marketing Strategy Manager ID - LUISA [id number] 04:42:00* Test Item Value Reference Range Interpretation Comments MAGNESIUM (BEAKER) (test code = 627) 2.1 mg/dL 1.6-2.6 Marketing Strategy Manager ID - LUISA LBASIC METABOLIC [id number] 04:42:00* Test Item Value Reference Range Interpretation Comments SODIUM (BEAKER) (test code = 381) 138 meq/L 136-145 POTASSIUM (BEAKER) (test code = 379) 4.1 meq/L 3.5-5.1 CHLORIDE (BEAKER) (test code = 382) 106 meq/L 98-107 CO2 (BEAKER) (test code = 355) 24 meq/L 22-29 BLOOD UREA NITROGEN (BEAKER) (test code = 354) 36 mg/dL 7-21 H CREATININE (BEAKER) (test code = 358) 1.77 mg/dL 0.57-1.25 H GLUCOSE RANDOM (BEAKER) (test code = 652) 278 mg/dL 70-105 H CALCIUM (BEAKER) (test code = 697) 8.2 mg/dL 8.4-10.2 L EGFR (BEAKER) (test code = 1092) 40 mL/min/1.73 sq m ESTIMATED GFR IS NOT ACCURATE CREATININE CLEARANCE IN PREDICTING GLOMERULAR FILTRATION RATE. ESTIMATED GFR IS NOT APPLICABLE FOR DIALYSIS PATIENTS. Marketing Strategy Manager ID - LUISA [id number] 04:19:00* Test Item Value Reference Range Interpretation Comments PARTIAL THROMBOPLASTIN TIME (BEAKER) (test code = 760) 35.0 seconds 22.5-36.0 BLOOD GAS, [id number] 04:14:00* Test Item Value Reference Range Interpretation Comments PH ARTERIAL (BEAKER) (test code = 383) 7.36 7.35-7.45 PCO2 ARTERIAL (BEAKER) (test code = 384) 49 mmHg 35-45 H PO2 ARTERIAL (BEAKER) (test code = 385) 83 mmHg 80-90 O2 SATURATION ARTERIAL (BEAKER) (test code = 386) 95.4 % 96.0 -97.0 L HCO3 ARTERIAL (BEAKER) (test code = 388) 27 mmol/L 21-29 BASE EXCESS ARTERIAL (BEAKER) (test code = 387) 1.1 mmol/L -2.0-3 .0 PATIENT TEMPERATURE (BEAKER) (test code = 1818) 37.5 C FIO2 (BEAKER) (test code = 1819) 90.0 % POCT-GLUCOSE [id number] 00:05:00* Test Item Value Reference Range Interpretation Comments POC-GLUCOSE METER (BEAKER) (test code = 1538) 205 mg/dL 70-110 H : TESTED AT [facility] [address] [facility] [place], [address]: Marketing Strategy Manager/Clinical Laboratory Technician ID = [id number] for Kannan Garcia [id number] 00:00:00* Test Item Value Reference Range Interpretation Comments PARTIAL THROMBOPLASTIN TIME (BEAKER) (test code = 760) 30.0 seconds 22.5-36.0 [id number] 23:56:00* Test Item Value Reference Range Interpretation Comments Potassium (test code = 2823-3) 4.2 meq/L 3.5-5.1 LOY (test code = LOY) Marketing Strategy Manager ID - LUISA L Lab Interpretation (test code = 69820-1) [facility] 23:56:[facility]* Test Item Value Reference Range Interpretation Comments POTASSIUM (BEAKER) (test code = 379) 4.2 meq/L 3.5-5.1 Marketing Strategy Manager ID - LUISA LPrepare [id number] 23:54:00* Test Item Value Reference Range Interpretation Comments Unit ABO (test code = 9571554) A Pos UNIT NUMBER (test code = 934-0) [id number] Status (test code = 4401476) TX_TIMEINCHART Blood Bank Product (test code = 2263) FFP PRODUCT CODE (test code = 933-2) [id number] [facility] [id number] 22:16:00* Test Item Value Reference Range Interpretation Comments PH ARTERIAL (BEAKER) (test code = 383) 7.36 7.35-7.45 PCO2 ARTERIAL (BEAKER) (test code = 384) 43 mm Hg 35-45 PO2 ARTERIAL (BEAKER) (test code = 385) 48 mm Hg 80-90 L O2 SATURATION ARTERIAL (BEAKER) (test code = 386) 80.9 % 96.0 -97.0 L HCO3 ARTERIAL (BEAKER) (test code = 388) 24 mmol/L 21-29 BASE EXCESS ARTERIAL (BEAKER) (test code = 387) -1.8 mmol/L -2.0-3 .0 PATIENT TEMPERATURE (BEAKER) (test code = 1818) 37.5 FIO2 (BEAKER) (test code = 1819) 80 BLOOD GAS, [id number] 21:47:00* Test Item Value Reference Range Interpretation Comments PH ARTERIAL (BEAKER) (test code = 383) 7.34 7.35-7.45 L PCO2 ARTERIAL (BEAKER) (test code = 384) 46 mmHg 35-45 H PO2 ARTERIAL (BEAKER) (test code = 385) 89 mmHg 80-90 O2 SATURATION ARTERIAL (BEAKER) (test code = 386) 96.5 % 96.0 -97.0 HCO3 ARTERIAL (BEAKER) (test code = 388) 24 mmol/L 21-29 BASE EXCESS ARTERIAL (BEAKER) (test code = 387) -1.7 mmol/L -2.0-3 .0 PATIENT TEMPERATURE (BEAKER) (test code = 1818) 36.5 C FIO2 (BEAKER) (test code = 1819) 60.0 % [id number] 20:07:00* Test Item Value Reference Range Interpretation Comments PHOSPHORUS (BEAKER) (test code = 604) 2.0 mg/dL 2.3-4.7 L Marketing Strategy Manager ID - [id number] 20:07:00* Test Item Value Reference Range Interpretation Comments MAGNESIUM (BEAKER) (test code = 627) 2.0 mg/dL 1.6-2.6 Marketing Strategy Manager ID - [id number] 20:07:00* Test Item Value Reference Range Interpretation Comments SODIUM (BEAKER) (test code = 381) 137 meq/L 136-145 Marketing Strategy Manager ID - DBPOCT-GLUCOSE [id number] 19:52:00* Test Item Value Reference Range Interpretation Comments POC-GLUCOSE METER (BEAKER) (test code = 1538) 223 mg/dL 70-110 H : TESTED AT [place] [id number] [facility] [place], [address]: Marketing Strategy Manager/Clinical Laboratory Technician ID = [id number] for Kannan Garcia [id number] 18:03:00* Test Item Value Reference Range Interpretation Comments PARTIAL THROMBOPLASTIN TIME (BEAKER) (test code = 760) 34.9 seconds 22.5-36.0 POCT-GLUCOSE [id number] 17:40:00* Test Item Value Reference Range Interpretation Comments POC-GLUCOSE METER (BEAKER) (test code = 1538) 232 mg/dL 70-110 H : TESTED AT [place] [id number] [facility] [place], [address]: Marketing Strategy Manager/Clinical Laboratory Technician ID = [id number] for JENNIFER KELLY POCT-GLUCOSE [id number] 16:46:00* Test Item Value Reference Range Interpretation Comments POC-GLUCOSE METER (BEAKER) (test code = 1538) 231 mg/dL 70-110 H : TESTED AT [facility] [address] [facility] [place], [address]: Marketing Strategy Manager/Clinical Laboratory Technician ID = [id number] for JENNIFER KELLY BLOOD GAS, [id number] 16:42:00* Test Item Value Reference Range Interpretation Comments PH ARTERIAL (BEAKER) (test code = 383) 7.36 7.35-7.45 PCO2 ARTERIAL (BEAKER) (test code = 384) 38 mmHg 35-45 PO2 ARTERIAL (BEAKER) (test code = 385) 190 mmHg 80-90 H O2 SATURATION ARTERIAL (BEAKER) (test code = 386) 99.3 % 96.0 -97.0 H HCO3 ARTERIAL (BEAKER) (test code = 388) 21 mmol/L 21-29 BASE EXCESS ARTERIAL (BEAKER) (test code = 387) -4.2 mmol/L -2.0-3 .0 L PATIENT TEMPERATURE (BEAKER) (test code = 1818) 35.5 C FIO2 (BEAKER) (test code = 1819) 70.0 % [id number] 16:40:00* Test Item Value Reference Range Interpretation Comments POTASSIUM (BEAKER) (test code = 379) 4.8 meq/L 3.5-5.1 Specimen moderately hemolyzed Marketing Strategy Manager ID - HORTENCIA [id number] 11:45:00* Test Item Value Reference Range Interpretation Comments POTASSIUM (BEAKER) (test code = 379) 3.9 meq/L 3.5-5.1 Marketing Strategy Manager ID - LUISA LPOCT-GLUCOSE [id number] 11:11:00* Test Item Value Reference Range Interpretation Comments POC-GLUCOSE METER (BEAKER) (test code = 1538) 340 mg/dL 70-110 H : TESTED AT [facility] [address] [facility] [place], [address]: Marketing Strategy Manager/Clinical Laboratory Technician ID = [id number] for JENNIFER KELLY BLOOD GAS, [id number] 11:08:00* Test Item Value Reference Range Interpretation Comments PH ARTERIAL (BEAKER) (test code = 383) 7.32 7.35-7.45 L PCO2 ARTERIAL (BEAKER) (test code = 384) 48 mmHg 35-45 H PO2 ARTERIAL (BEAKER) (test code = 385) 203 mmHg 80-90 H O2 SATURATION ARTERIAL (BEAKER) (test code = 386) 99.3 % 96.0 -97.0 H HCO3 ARTERIAL (BEAKER) (test code = 388) 25 mmol/L 21-29 BASE EXCESS ARTERIAL (BEAKER) (test code = 387) -2.3 mmol/L -2.0-3 .0 L PATIENT TEMPERATURE (BEAKER) (test code = 1818) 34.5 C FIO2 (BEAKER) (test code = 1819) 100.0 % CBC W/PLT COUNT & AUTO [id number] 10:11:00* Test Item Value Reference Range Interpretation Comments WHITE BLOOD CELL COUNT (BEAKER) (test code = 775) 10.4 K/ L 3.5- 10.5 RED BLOOD CELL COUNT (BEAKER) (test code = 761) 4.07 M/ L 4.63-6 .08 L HEMOGLOBIN (BEAKER) (test code = 410) 11.3 GM/DL 13.7-17.5 L HEMATOCRIT (BEAKER) (test code = 411) 35.2 % 40.1-51.0 L MEAN CORPUSCULAR VOLUME (BEAKER) (test code = 753) 86.5 fL 79. 0-92.2 MEAN CORPUSCULAR HEMOGLOBIN (BEAKER) (test code = 751) 27.8 pg 25.7-32.2 MEAN CORPUSCULAR HEMOGLOBIN CONC (BEAKER) (test code = 752) 32.1 GM/DL 32.3-36.5 L RED CELL DISTRIBUTION WIDTH (BEAKER) (test code = 412) 14.0 % 11.6-14.4 PLATELET COUNT (BEAKER) (test code = 756) 66 K/CU MM 150-450 L MEAN PLATELET VOLUME (BEAKER) (test code = 754) 12.9 fL 9.4-12 .4 H NUCLEATED RED BLOOD CELLS (BEAKER) (test code = 413) 0 /100 WBC 0 -0 (CELLAVISION MANUAL DIFF)2019-12-19 10:11:00* Test Item Value Reference Range Interpretation Comments NEUTROPHILS - REL (CELLAVISION)(BEAKER) (test code = 2816) 84 % LYMPHOCYTES - REL (CELLAVISION)(BEAKER) (test code = 2817) 4 % MONOCYTES - REL (CELLAVISION)(BEAKER) (test code = 2818) 5 % BANDS - REL (CELLAVISION)(BEAKER) (test code = 2826) 7 % 0 -10 NEUTROPHILS - ABS (CELLAVISION)(BEAKER) (test code = 2830) 8.74 K/ul 1.78-5.38 H LYMPHOCYTES - ABS (CELLAVISION)(BEAKER) (test code = 2831) 0.42 K/ul 1.32-3.57 L MONOCYTES - ABS (CELLAVISION)(BEAKER) (test code = 2832) 0.52 K/uL 0.30-0.82 BANDS - ABS (CELLAVISION)(BEAKER) (test code = 2840) 0.73 K/uL 0 .00-0.80 TOTAL COUNTED (BEAKER) (test code = 1351) 100 PLT MORPHOLOGY (BEAKER) (test code = 486) Normal TOXIC GRANULATION (BEAKER) (test code = 771) Present POLYCHROMATOPHILLIC RBCS(BEAKER) (test code = 478) 1+ few HYPOCHROMIA (BEAKER) (test code = 963) 1+ few ARTIFACT (CELLAVISION)(BEAKER) (test code = 3432) Present PLATELET CONCENTRATION (CELLAVISION)(BEAKER) (test code = 3438) Dec reased Marketing Strategy Manager ID - [id number] ID - ayden Rainey comments: Slide comments: [id number] 09:39:00* Test Item Value Reference Range Interpretation Comments FERRITIN (BEAKER) (test code = 361) 6109.22 ng/mL 5.00-275.00 H Marketing Strategy Manager ID - HORTENCIA [id number] 09:11:00* Test Item Value Reference Range Interpretation Comments PARTIAL THROMBOPLASTIN TIME (BEAKER) (test code = 760) 35.2 seconds 22.5-36.0 [id number] 08:41:00* Test Item Value Reference Range Interpretation Comments MAGNESIUM (BEAKER) (test code = 627) 2.2 mg/dL 1.6-2.6 Specimen slightly hemolyzed Marketing Strategy Manager ID - LUISA [id number] 08:41:00* Test Item Value Reference Range Interpretation Comments PHOSPHORUS (BEAKER) (test code = 604) 2.6 mg/dL 2.3-4.7 Specimen slightly hemolyzed Marketing Strategy Manager ID - LUISA BLACKOCT-GLUCOSE [id number] 08:23:00* Test Item Value Reference Range Interpretation Comments POC-GLUCOSE METER (BEAKER) (test code = 1538) 347 mg/dL 70-110 H : TESTED AT [facility] [address] [facility] [place], [address]: Marketing Strategy Manager/Clinical Laboratory Technician ID = [id number] for JUDYGIANNIANISHA JENNIFER [id number] 06:36:00* Test Item Value Reference Range Interpretation Comments PROCALCITONIN (BEAKER) (test code = 3036) 8.43 ng/mL <0.05 H SEPSIS RISK (ng/mL)Low: 0.05-0.50Intermediate: 0.51-2.00High: > =2.01BASIC METABOLIC [id number] 06:30:00* Test Item Value Reference Range Interpretation Comments SODIUM (BEAKER) (test code = 381) 136 meq/L 136-145 POTASSIUM (BEAKER) (test code = 379) 5.0 meq/L 3.5-5.1 CHLORIDE (BEAKER) (test code = 382) 104 meq/L 98-107 CO2 (BEAKER) (test code = 355) 24 meq/L 22-29 BLOOD UREA NITROGEN (BEAKER) (test code = 354) 33 mg/dL 7-21 H CREATININE (BEAKER) (test code = 358) 1.51 mg/dL 0.57-1.25 H GLUCOSE RANDOM (BEAKER) (test code = 652) 322 mg/dL 70-105 H CALCIUM (BEAKER) (test code = 697) 8.6 mg/dL 8.4-10.2 Discordant result compared to previous result. Clinical correlation required EGFR (BEAKER) (test code = 1092) 48 mL/min/1.73 sq m ESTIMATED GFR IS NOT ACCURATE CREATININE CLEARANCE IN PREDICTING GLOMERULAR FILTRATION RATE. ESTIMATED GFR IS NOT APPLICABLE FOR DIALYSIS PATIENTS. Marketing Strategy Manager ID - LUISA LVANCOMYCIN LEVEL, [id number] 06:12:00* Test Item Value Reference Range Interpretation Comments VANCOMYCIN TROUGH (BEAKER) (test code = 522) 10.0 ug/mL 10.0-20.0 Marketing Strategy Manager ID - LUISA [id number] 06:02:00* Test Item Value Reference Range Interpretation Comments PHOSPHORUS (BEAKER) (test code = 604) 3.1 mg/dL 2.3-4.7 Marketing Strategy Manager ID - PISHARON [id number] 06:02:00* Test Item Value Reference Range Interpretation Comments MAGNESIUM (BEAKER) (test code = 627) 2.3 mg/dL 1.6-2.6 Marketing Strategy Manager ID - PISHARON LLACTATE DEHYDROGENASE (LDH)2019-12-19 06:02:00* Test Item Value Reference Range Interpretation Comments LACTATE DEHYDROGENASE (BEAKER) (test code = 635) 837 U/L 125-2 20 H Marketing Strategy Manager ID - PISHARON LC-REACTIVE [id number] 06:02:00* Test Item Value Reference Range Interpretation Comments C-REACTIVE PROTEIN (BEAKER) (test code = 676) 28.70 mg/dL 0.00-0.5 0 H Marketing Strategy Manager ID - LUISA LTHROMBOELASTOGRAPH (TEG)2019-12-19 05:08:00* Test Item Value Reference Range Interpretation Comments TEG ACTIVATED CLOTTING TIME (BEAKER) (test code = 1407) 10.0 minute s 4.0-7.0 H TEG FIBRINOGEN ACTIVITY (BEAKER) (test code = 1408) 59.7 degrees 61 .0-73.0 L TEG PLT. AGGREGATION (BEAKER) (test code = 1409) 74.1 MM 55.0- 65.0 H TEG FIBRINOLYSIS (BEAKER) (test code = 1410) 0.0 % 0.0-5.0 TGH ACTIVATED CLOTTING TIME (BEAKER) (test code = 1411) 5.8 minutes 4.0-7.0 TGH FIBRINOGEN ACTIVITY (BEAKER) (test code = 1412) 67.2 degrees 61 .0-73.0 TGH PLT. AGGREGATION (BEAKER) (test code = 1413) 71.0 MM 55.0- 65.0 H TGH FIBRINOLYSIS (BEAKER) (test code = 1414) 0.0 % 0.0-5.0 BLOOD GAS, [id number] 04:50:00* Test Item Value Reference Range Interpretation Comments PH ARTERIAL (BEAKER) (test code = 383) 7.35 7.35-7.45 PCO2 ARTERIAL (BEAKER) (test code = 384) 50 mmHg 35-45 H PO2 ARTERIAL (BEAKER) (test code = 385) 79 mmHg 80-90 L O2 SATURATION ARTERIAL (BEAKER) (test code = 386) 95.3 % 96.0 -97.0 L HCO3 ARTERIAL (BEAKER) (test code = 388) 27 mmol/L 21-29 BASE EXCESS ARTERIAL (BEAKER) (test code = 387) 0.9 mmol/L -2.0-3 .0 PATIENT TEMPERATURE (BEAKER) (test code = 1818) 36.5 C FIO2 (BEAKER) (test code = 1819) 90.0 % [id number] 04:01:00* Test Item Value Reference Range Interpretation Comments PARTIAL THROMBOPLASTIN TIME (BEAKER) (test code = 760) 34.9 seconds 22.5-36.0 [id number] 01:39:00* Test Item Value Reference Range Interpretation Comments POTASSIUM (BEAKER) (test code = 379) 4.8 meq/L 3.5-5.1 Marketing Strategy Manager ID - PIAYA LPOCT-GLUCOSE [id number] 01:01:00* Test Item Value Reference Range Interpretation Comments POC-GLUCOSE METER (BEAKER) (test code = 1538) 275 mg/dL 70-110 H : TESTED AT [address], [address]: Marketing Strategy Manager/Clinical Laboratory Technician ID = [id number] for Rigo Lord BLOOD GAS, [id number] 23:22:00* Test Item Value Reference Range Interpretation Comments PH ARTERIAL (BEAKER) (test code = 383) 7.32 7.35-7.45 L PCO2 ARTERIAL (BEAKER) (test code = 384) 49 mmHg 35-45 H PO2 ARTERIAL (BEAKER) (test code = 385) 49 mmHg 80-90 L O2 SATURATION ARTERIAL (BEAKER) (test code = 386) 82.2 % 96.0 -97.0 L HCO3 ARTERIAL (BEAKER) (test code = 388) 25 mmol/L 21-29 BASE EXCESS ARTERIAL (BEAKER) (test code = 387) -2.0 mmol/L -2.0-3 .0 PATIENT TEMPERATURE (BEAKER) (test code = 1818) 36.5 C FIO2 (BEAKER) (test code = 1819) 90.0 % [id number] 21:19:00* Test Item Value Reference Range Interpretation Comments SODIUM (BEAKER) (test code = 381) 136 meq/L 136-145 Marketing Strategy Manager ID - [id number] 21:18:00* Test Item Value Reference Range Interpretation Comments MAGNESIUM (BEAKER) (test code = 627) 2.1 mg/dL 1.6-2.6 Marketing Strategy Manager ID - [id number] 21:18:00* Test Item Value Reference Range Interpretation Comments PHOSPHORUS (BEAKER) (test code = 604) 2.9 mg/dL 2.3-4.7 Marketing Strategy Manager ID - [id number] 21:17:00* Test Item Value Reference Range Interpretation Comments POTASSIUM (BEAKER) (test code = 379) 5.0 meq/L 3.5-5.1 Marketing Strategy Manager ID - DBPOCT-GLUCOSE [id number] 17:48:00* Test Item Value Reference Range Interpretation Comments POC-GLUCOSE METER (BEAKER) (test code = 1538) 140 mg/dL 70-110 H : TESTED AT [facility] [address] [facility] [place], [address]: Marketing Strategy Manager/Clinical Laboratory Technician ID = [id number] for JENNIFER KELLY BASIC METABOLIC [id number] 15:51:00* Test Item Value Reference Range Interpretation Comments SODIUM (BEAKER) (test code = 381) 144 meq/L 136-145 POTASSIUM (BEAKER) (test code = 379) 3.7 meq/L 3.5-5.1 Specimen slightly hemolyzed CHLORIDE (BEAKER) (test code = 382) 118 meq/L 98-107 H CO2 (BEAKER) (test code = 355) 20 meq/L 22-29 L BLOOD UREA NITROGEN (BEAKER) (test code = 354) 25 mg/dL 7-21 H CREATININE (BEAKER) (test code = 358) 0.84 mg/dL 0.57-1.25 Specimen slightly hemolyzed GLUCOSE RANDOM (BEAKER) (test code = 652) 161 mg/dL 70-105 H CALCIUM (BEAKER) (test code = 697) 6.3 mg/dL 8.4-10.2 L EGFR (BEAKER) (test code = 1092) 95 mL/min/1.73 sq m ESTIMATED GFR IS NOT ACCURATE CREATININE CLEARANCE IN PREDICTING GLOMERULAR FILTRATION RATE. ESTIMATED GFR IS NOT APPLICABLE FOR DIALYSIS PATIENTS. Marketing Strategy Manager ID - HORTENCIA [id number] 15:49:00* Test Item Value Reference Range Interpretation Comments POTASSIUM (BEAKER) (test code = 379) 3.7 meq/L 3.5-5.1 Specimen slightly hemolyzed Marketing Strategy Manager ID - HORTENCIA MBLOOD GAS, [id number] 15:34:00* Test Item Value Reference Range Interpretation Comments PH ARTERIAL (BEAKER) (test code = 383) 7.35 7.35-7.45 PCO2 ARTERIAL (BEAKER) (test code = 384) 46 mmHg 35-45 H PO2 ARTERIAL (BEAKER) (test code = 385) 98 mmHg 80-90 H O2 SATURATION ARTERIAL (BEAKER) (test code = 386) 97.0 % 96.0 -97.0 HCO3 ARTERIAL (BEAKER) (test code = 388) 25 mmol/L 21-29 BASE EXCESS ARTERIAL (BEAKER) (test code = 387) -1.0 mmol/L -2.0-3 .0 PATIENT TEMPERATURE (BEAKER) (test code = 1818) 37.5 C FIO2 (BEAKER) (test code = 1819) 80.0 % CBC W/PLT COUNT & AUTO [id number] 12:51:00* Test Item Value Reference Range Interpretation Comments WHITE BLOOD CELL COUNT (BEAKER) (test code = 775) 12.2 K/ L 3.5- 10.5 H RED BLOOD CELL COUNT (BEAKER) (test code = 761) 4.48 M/ L 4.63-6 .08 L HEMOGLOBIN (BEAKER) (test code = 410) 12.9 GM/DL 13.7-17.5 L HEMATOCRIT (BEAKER) (test code = 411) 38.4 % 40.1-51.0 L MEAN CORPUSCULAR VOLUME (BEAKER) (test code = 753) 85.7 fL 79. 0-92.2 MEAN CORPUSCULAR HEMOGLOBIN (BEAKER) (test code = 751) 28.8 pg 25.7-32.2 MEAN CORPUSCULAR HEMOGLOBIN CONC (BEAKER) (test code = 752) 33.6 GM/DL 32.3-36.5 RED CELL DISTRIBUTION WIDTH (BEAKER) (test code = 412) 13.7 % 11.6-14.4 PLATELET COUNT (BEAKER) (test code = 756) 87 K/CU MM 150-450 L MEAN PLATELET VOLUME (BEAKER) (test code = 754) 13.9 fL 9.4-12 .4 H NUCLEATED RED BLOOD CELLS (BEAKER) (test code = 413) 0 /100 WBC 0 -0 (CELLAVISION MANUAL DIFF)2019-12-18 12:51:00* Test Item Value Reference Range Interpretation Comments NEUTROPHILS - REL (CELLAVISION)(BEAKER) (test code = 2816) 91 % LYMPHOCYTES - REL (CELLAVISION)(BEAKER) (test code = 2817) 1 % MONOCYTES - REL (CELLAVISION)(BEAKER) (test code = 2818) 1 % BANDS - REL (CELLAVISION)(BEAKER) (test code = 2826) 7 % 0 -10 NEUTROPHILS - ABS (CELLAVISION)(BEAKER) (test code = 2830) 11.10 K/ul 1.78-5.38 H LYMPHOCYTES - ABS (CELLAVISION)(BEAKER) (test code = 2831) 0.12 K/ul 1.32-3.57 L MONOCYTES - ABS (CELLAVISION)(BEAKER) (test code = 2832) 0.12 K/uL 0.30-0.82 L BANDS - ABS (CELLAVISION)(BEAKER) (test code = 2840) 0.85 K/uL 0 .00-0.80 H TOTAL COUNTED (BEAKER) (test code = 1351) 100 PLT MORPHOLOGY (BEAKER) (test code = 486) Normal TOXIC GRANULATION (BEAKER) (test code = 771) Present POLYCHROMATOPHILLIC RBCS(BEAKER) (test code = 478) 1+ few POIKILOCYTES (BEAKER) (test code = 966) 1+ few HOLLI CELLS (BEAKER) (test code = 474) 1+ few ARTIFACT (CELLAVISION)(BEAKER) (test code = 3432) Present PLATELET CONCENTRATION (CELLAVISION)(BEAKER) (test code = 3438) Dec reased Marketing Strategy Manager ID - [id number] ID - Yasmine Mccarthy comments: Slide comments: BLOOD GAS, [id number] 12:35:00* Test Item Value Reference Range Interpretation Comments PH ARTERIAL (BEAKER) (test code = 383) 7.38 7.35-7.45 PCO2 ARTERIAL (BEAKER) (test code = 384) 37 mmHg 35-45 PO2 ARTERIAL (BEAKER) (test code = 385) 65 mmHg 80-90 L O2 SATURATION ARTERIAL (BEAKER) (test code = 386) 91.9 % 96.0 -97.0 L HCO3 ARTERIAL (BEAKER) (test code = 388) 21 mmol/L 21-29 BASE EXCESS ARTERIAL (BEAKER) (test code = 387) -3.6 mmol/L -2.0-3 .0 L PATIENT TEMPERATURE (BEAKER) (test code = 1818) 37.5 C FIO2 (BEAKER) (test code = 1819) 70.0 % [id number] 12:25:00* Test Item Value Reference Range Interpretation Comments Cortisol, Total (test code = 2755) 26.1 ug/dL 3.7-19.4 H LOY (test code = LOY) Marketing Strategy Manager ID - LUISA Farfan Lab Interpretation (test code = 90521-5) [facility] 12:25:[facility]* Test Item Value Reference Range Interpretation Comments CORTISOL, TOTAL (BEAKER) (test code = 2755) 26.1 ug/dL 3.7-19.4 H Marketing Strategy Manager ID Monisha MORAN LPOCT-GLUCOSE [id number] 11:37:00* Test Item Value Reference Range Interpretation Comments POC-GLUCOSE METER (BEAKER) (test code = 1538) 179 mg/dL 70-110 H : TESTED AT [address], [address]: Marketing Strategy Manager/Clinical Laboratory Technician ID = [id number] for JENNIFER KELLY BLOOD GAS, [id number] 08:09:00* Test Item Value Reference Range Interpretation Comments PH ARTERIAL (BEAKER) (test code = 383) 7.40 7.35-7.45 PCO2 ARTERIAL (BEAKER) (test code = 384) 36 mmHg 35-45 PO2 ARTERIAL (BEAKER) (test code = 385) 68 mmHg 80-90 L O2 SATURATION ARTERIAL (BEAKER) (test code = 386) 93.4 % 96.0 -97.0 L HCO3 ARTERIAL (BEAKER) (test code = 388) 22 mmol/L 21-29 BASE EXCESS ARTERIAL (BEAKER) (test code = 387) -2.4 mmol/L -2.0-3 .0 L PATIENT TEMPERATURE (BEAKER) (test code = 1818) 37.5 C FIO2 (BEAKER) (test code = 1819) 70.0 % BASIC METABOLIC [id number] 08:03:00* Test Item Value Reference Range Interpretation Comments SODIUM (BEAKER) (test code = 381) 139 meq/L 136-145 POTASSIUM (BEAKER) (test code = 379) 4.6 meq/L 3.5-5.1 Specimen slightly hemolyzed CHLORIDE (BEAKER) (test code = 382) 110 meq/L 98-107 H CO2 (BEAKER) (test code = 355) 22 meq/L 22-29 BLOOD UREA NITROGEN (BEAKER) (test code = 354) 37 mg/dL 7-21 H CREATININE (BEAKER) (test code = 358) 1.36 mg/dL 0.57-1.25 H Specimen slightly hemolyzed GLUCOSE RANDOM (BEAKER) (test code = 652) 314 mg/dL 70-105 H CALCIUM (BEAKER) (test code = 697) 7.5 mg/dL 8.4-10.2 L EGFR (BEAKER) (test code = 1092) 55 mL/min/1.73 sq m ESTIMATED GFR IS NOT ACCURATE CREATININE CLEARANCE IN PREDICTING GLOMERULAR FILTRATION RATE. ESTIMATED GFR IS NOT APPLICABLE FOR DIALYSIS PATIENTS. Marketing Strategy Manager ID - PIAYA [id number] 07:43:00* Test Item Value Reference Range Interpretation Comments MAGNESIUM (BEAKER) (test code = 627) 2.7 mg/dL 1.6-2.6 H Specimen slightly hemolyzed Marketing Strategy Manager ID - PIAYA [id number] 07:43:00* Test Item Value Reference Range Interpretation Comments PHOSPHORUS (BEAKER) (test code = 604) 2.6 mg/dL 2.3-4.7 Specimen slightly hemolyzed Marketing Strategy Manager ID - PIAYA LTHROMBOELASTOGRAPH (TEG)2019-12-18 07:38:00* Test Item Value Reference Range Interpretation Comments TEG ACTIVATED CLOTTING TIME (BEAKER) (test code = 1407) 13.1 minute s 4.0-7.0 H TEG FIBRINOGEN ACTIVITY (BEAKER) (test code = 1408) 54.6 degrees 61 .0-73.0 L TEG PLT. AGGREGATION (BEAKER) (test code = 1409) 71.6 MM 55.0- 65.0 H TGH ACTIVATED CLOTTING TIME (BEAKER) (test code = 1411) 7.2 minutes 4.0-7.0 H TGH FIBRINOGEN ACTIVITY (BEAKER) (test code = 1412) 62.7 degrees 61 .0-73.0 TGH PLT. AGGREGATION (BEAKER) (test code = 1413) 68.0 MM 55.0- 65.0 H [id number] 06:43:00* Test Item Value Reference Range Interpretation Comments PARTIAL THROMBOPLASTIN TIME (BEAKER) (test code = 760) 43.7 seconds 22.5-36.0 H POCT-GLUCOSE [id number] 06:22:00* Test Item Value Reference Range Interpretation Comments POC-GLUCOSE METER (BEAKER) (test code = 1538) 301 mg/dL 70-110 H : TESTED AT [address], [id number]: Marketing Strategy Manager/Clinical Laboratory Technician ID = [id number] for Rigo Lord CALCIUM, [id number] 06:16:00* Test Item Value Reference Range Interpretation Comments CALCIUM IONIZED (BEAKER) (test code = 698) 1.14 mmol/L 1.12-1.27 PH, BLOOD (BEAKER) (test code = 1810) 7.42 [id number] 05:45:00* Test Item Value Reference Range Interpretation Comments PHOSPHORUS (BEAKER) (test code = 604) 1.2 mg/dL 2.3-4.7 LL Marketing Strategy Manager ID - PIAYA LCOMPREHENSIVE METABOLIC [id number] 05:39:00* Test Item Value Reference Range Interpretation Comments TOTAL PROTEIN (BEAKER) (test code = 770) 3.7 gm/dL 6.0-8.3 L ALBUMIN (BEAKER) (test code = 1145) 1.9 g/dL 3.5-5.0 L ALKALINE PHOSPHATASE (BEAKER) (test code = 346) 165 U/L 40-150 H BILIRUBIN TOTAL (BEAKER) (test code = 377) 0.9 mg/dL 0.2-1.2 SODIUM (BEAKER) (test code = 381) 140 meq/L 136-145 POTASSIUM (BEAKER) (test code = 379) 2.8 meq/L 3.5-5.1 L CHLORIDE (BEAKER) (test code = 382) 118 meq/L 98-107 H CO2 (BEAKER) (test code = 355) 17 meq/L 22-29 L BLOOD UREA NITROGEN (BEAKER) (test code = 354) 29 mg/dL 7-21 H CREATININE (BEAKER) (test code = 358) 0.96 mg/dL 0.57-1.25 GLUCOSE RANDOM (BEAKER) (test code = 652) 262 mg/dL 70-105 H CALCIUM (BEAKER) (test code = 697) 5.4 mg/dL 8.4-10.2 LL AST (SGOT) (BEAKER) (test code = 353) 109 U/L 5-34 H ALT (SGPT) (BEAKER) (test code = 347) 135 U/L 6-55 H EGFR (BEAKER) (test code = 1092) 82 mL/min/1.73 sq m ESTIMATED GFR IS NOT ACCURATE CREATININE CLEARANCE IN PREDICTING GLOMERULAR FILTRATION RATE. ESTIMATED GFR IS NOT APPLICABLE FOR DIALYSIS PATIENTS. Marketing Strategy Manager ID - PIAYA [id number] 04:09:00* Test Item Value Reference Range Interpretation Comments POTASSIUM (BEAKER) (test code = 379) 2.8 meq/L 3.5-5.1 L Marketing Strategy Manager ID - PIAYA [id number] 04:09:00* Test Item Value Reference Range Interpretation Comments MAGNESIUM (BEAKER) (test code = 627) 1.5 mg/dL 1.6-2.6 L Marketing Strategy Manager ID - PIAYA LVANCOMYCIN LEVEL, [id number] 03:59:00* Test Item Value Reference Range Interpretation Comments VANCOMYCIN TROUGH (BEAKER) (test code = 522) 7.7 ug/mL 10.0-20.0 L Marketing Strategy Manager ID - PIAYA LBLOOD GAS, [id number] 03:27:00* Test Item Value Reference Range Interpretation Comments PH ARTERIAL (BEAKER) (test code = 383) 7.43 7.35-7.45 PCO2 ARTERIAL (BEAKER) (test code = 384) 39 mmHg 35-45 PO2 ARTERIAL (BEAKER) (test code = 385) 59 mmHg 80-90 L O2 SATURATION ARTERIAL (BEAKER) (test code = 386) 91.4 % 96.0 -97.0 L HCO3 ARTERIAL (BEAKER) (test code = 388) 25 mmol/L 21-29 BASE EXCESS ARTERIAL (BEAKER) (test code = 387) 0.8 mmol/L -2.0-3 .0 PATIENT TEMPERATURE (BEAKER) (test code = 1818) 37.0 C FIO2 (BEAKER) (test code = 1819) 70.0 % POCT-GLUCOSE [id number] 00:04:00* Test Item Value Reference Range Interpretation Comments POC-GLUCOSE METER (BEAKER) (test code = 1538) 219 mg/dL 70-110 H : TESTED AT [address], [address]: Marketing Strategy Manager/Clinical Laboratory Technician ID = [id number] for ROSALIA GARZA [id number] 21:49:00* Test Item Value Reference Range Interpretation Comments MAGNESIUM (BEAKER) (test code = 627) 2.0 mg/dL 1.6-2.6 Specimen slightly hemolyzed Marketing Strategy Manager ID - [id number] 21:49:00* Test Item Value Reference Range Interpretation Comments PHOSPHORUS (BEAKER) (test code = 604) 1.6 mg/dL 2.3-4.7 L Specimen slightly hemolyzed Marketing Strategy Manager ID - [id number] 21:49:00* Test Item Value Reference Range Interpretation Comments POTASSIUM (BEAKER) (test code = 379) 4.5 meq/L 3.5-5.1 Specimen slightly hemolyzed Marketing Strategy Manager ID - [id number] 21:49:00* Test Item Value Reference Range Interpretation Comments SODIUM (BEAKER) (test code = 381) 140 meq/L 136-145 Marketing Strategy Manager ID - BSCALCIUM, [id number] 21:42:00* Test Item Value Reference Range Interpretation Comments CALCIUM IONIZED (BEAKER) (test code = 698) 1.10 mmol/L 1.12-1.27 L PH, BLOOD (BEAKER) (test code = 1810) 7.36 BLOOD GAS, [id number] 21:42:00* Test Item Value Reference Range Interpretation Comments PH ARTERIAL (BEAKER) (test code = 383) 7.35 7.35-7.45 PCO2 ARTERIAL (BEAKER) (test code = 384) 49 mmHg 35-45 H PO2 ARTERIAL (BEAKER) (test code = 385) 91 mmHg 80-90 H O2 SATURATION ARTERIAL (BEAKER) (test code = 386) 96.1 % 96.0 -97.0 HCO3 ARTERIAL (BEAKER) (test code = 388) 26 mmol/L 21-29 BASE EXCESS ARTERIAL (BEAKER) (test code = 387) -0.1 mmol/L -2.0-3 .0 PATIENT TEMPERATURE (BEAKER) (test code = 1818) 38.0 C FIO2 (BEAKER) (test code = 1819) 70.0 % LACTIC ACID, [id number] 17:55:00* Test Item Value Reference Range Interpretation Comments LACTATE BLOOD ARTERIAL (2) (BEAKER) (test code = 2874) 1.4 mmol/L 0.5-2.2 Marketing Strategy Manager ID - [id number] 17:46:00* Test Item Value Reference Range Interpretation Comments PARTIAL THROMBOPLASTIN TIME (BEAKER) (test code = 760) 44.5 seconds 22.5-36.0 H POCT-GLUCOSE [id number] 17:27:00* Test Item Value Reference Range Interpretation Comments POC-GLUCOSE METER (BEAKER) (test code = 1538) 328 mg/dL 70-110 H : TESTED AT [facility] [address] [facility] [place], [address]: Marketing Strategy Manager/Clinical Laboratory Technician ID = [id number] for Varsha Salvador BLOOD GAS, [id number] 16:07:00* Test Item Value Reference Range Interpretation Comments PH ARTERIAL (BEAKER) (test code = 383) 7.35 7.35-7.45 PCO2 ARTERIAL (BEAKER) (test code = 384) 43 mmHg 35-45 PO2 ARTERIAL (BEAKER) (test code = 385) 62 mmHg 80-90 L O2 SATURATION ARTERIAL (BEAKER) (test code = 386) 90.1 % 96.0 -97.0 L HCO3 ARTERIAL (BEAKER) (test code = 388) 23 mmol/L 21-29 BASE EXCESS ARTERIAL (BEAKER) (test code = 387) -2.6 mmol/L -2.0-3 .0 L PATIENT TEMPERATURE (BEAKER) (test code = 1818) 37.5 C FIO2 (BEAKER) (test code = 1819) 60.0 % [id number] 15:48:00* Test Item Value Reference Range Interpretation Comments POTASSIUM (BEAKER) (test code = 379) 4.0 meq/L 3.5-5.1 Specimen slightly hemolyzed Marketing Strategy Manager ID - [id number] 13:10:00* Test Item Value Reference Range Interpretation Comments POTASSIUM (BEAKER) (test code = 379) 4.3 meq/L 3.5-5.1 Specimen moderately hemolyzed Marketing Strategy Manager ID - [id number] 12:24:00* Test Item Value Reference Range Interpretation Comments PARTIAL THROMBOPLASTIN TIME (BEAKER) (test code = 760) 35.9 seconds 22.5-36.0 BLOOD GAS, [id number] 11:50:00* Test Item Value Reference Range Interpretation Comments PH ARTERIAL (BEAKER) (test code = 383) 7.31 7.35-7.45 L PCO2 ARTERIAL (BEAKER) (test code = 384) 41 mmHg 35-45 PO2 ARTERIAL (BEAKER) (test code = 385) 111 mmHg 80-90 H O2 SATURATION ARTERIAL (BEAKER) (test code = 386) 97.6 % 96.0 -97.0 H HCO3 ARTERIAL (BEAKER) (test code = 388) 20 mmol/L 21-29 L BASE EXCESS ARTERIAL (BEAKER) (test code = 387) -5.7 mmol/L -2.0-3 .0 L PATIENT TEMPERATURE (BEAKER) (test code = 1818) 37.5 C FIO2 (BEAKER) (test code = 1819) 60.0 % POCT-GLUCOSE [id number] 11:41:00* Test Item Value Reference Range Interpretation Comments POC-GLUCOSE METER (BEAKER) (test code = 1538) 323 mg/dL 70-110 H : TESTED AT [address], [address]: Marketing Strategy Manager/Clinical Laboratory Technician ID = [id number] for Varsha Salvador URINALYSIS W/ REFLEX URINE [id number] 11:10:00* Test Item Value Reference Range Interpretation Comments COLOR (BEAKER) (test code = 470) Brown CLARITY (BEAKER) (test code = 469) Cloudy SPECIFIC GRAVITY UA (BEAKER) (test code = 468) 1.031 1.001-1 .035 PH UA (BEAKER) (test code = 467) 5.0 5.0-8.0 PROTEIN UA (BEAKER) (test code = 464) 100 mg/dL Negative A GLUCOSE UA (BEAKER) (test code = 365) 30 mg/dL Negative A KETONES UA (BEAKER) (test code = 371) 10 mg/dL Negative A BILIRUBIN UA (BEAKER) (test code = 462) Negative Negative BLOOD UA (BEAKER) (test code = 461) Large Negative A NITRITE UA (BEAKER) (test code = 465) Negative Negative LEUKOCYTE ESTERASE UA (BEAKER) (test code = 466) Moderate Negat vince A UROBILINOGEN UA (BEAKER) (test code = 463) 0.2 mg/dL 0.2-1.0 RBC UA (BEAKER) (test code = 519) 231 /HPF WBC UA (BEAKER) (test code = 520) 17 /HPF BACTERIA (BEAKER) (test code = 517) Occasional MUCUS (BEAKER) (test code = 1574) Occasional HYALINE CASTS (BEAKER) (test code = 514) 18 /LPF YEAST (BEAKER) (test code = 1585) Many SOURCE(BEAKER) (test code = 2795) Marketing Strategy Manager ID - [auto]Marketing Strategy Manager ID - [id number] 10:46:00* Test Item Value Reference Range Interpretation Comments PROCALCITONIN (BEAKER) (test code = 3036) 2.59 ng/mL <0.05 H SEPSIS RISK (ng/mL)Low: 0.05-0.50Intermediate: 0.51-2.00High: > =2.01CALCIUM, [id number] 09:29:00* Test Item Value Reference Range Interpretation Comments CALCIUM IONIZED (BEAKER) (test code = 698) 0.86 mmol/L 1.12-1.27 L PH, BLOOD (BEAKER) (test code = 1810) 7.32 POCT-GLUCOSE [id number] 09:28:00* Test Item Value Reference Range Interpretation Comments POC-GLUCOSE METER (BEAKER) (test code = 1538) 236 mg/dL 70-110 H : TESTED AT [facility] [address] [facility] [place], [address]: Marketing Strategy Manager/Clinical Laboratory Technician ID = [id number] for Varsha Salvador SPUTUM CULTURE + GRAM [id number] 07:48:00* Test Item Value Reference Range Interpretation Comments CULTURE (BEAKER) (test code = 1095) No growth GRAM STAIN RESULT (BEAKER) (test code = 1123) 2+ WBCs GRAM STAIN RESULT (BEAKER) (test code = 16804) 0-5 epithelial cells GRAM STAIN RESULT (BEAKER) (test code = 51650) No organisms seen BASIC METABOLIC [id number] 07:38:00* Test Item Value Reference Range Interpretation Comments SODIUM (BEAKER) (test code = 381) 139 meq/L 136-145 POTASSIUM (BEAKER) (test code = 379) 3.5 meq/L 3.5-5.1 CHLORIDE (BEAKER) (test code = 382) 113 meq/L 98-107 H CO2 (BEAKER) (test code = 355) 14 meq/L 22-29 L BLOOD UREA NITROGEN (BEAKER) (test code = 354) 37 mg/dL 7-21 H CREATININE (BEAKER) (test code = 358) 1.66 mg/dL 0.57-1.25 H GLUCOSE RANDOM (BEAKER) (test code = 652) 281 mg/dL 70-105 H CALCIUM (BEAKER) (test code = 697) 6.4 mg/dL 8.4-10.2 L EGFR (BEAKER) (test code = 1092) 43 mL/min/1.73 sq m ESTIMATED GFR IS NOT ACCURATE CREATININE CLEARANCE IN PREDICTING GLOMERULAR FILTRATION RATE. ESTIMATED GFR IS NOT APPLICABLE FOR DIALYSIS PATIENTS. Marketing Strategy Manager ID - [id number] 07:25:00* Test Item Value Reference Range Interpretation Comments PARTIAL THROMBOPLASTIN TIME (BEAKER) (test code = 760) 30.7 seconds 22.5-36.0 THROMBOELASTOGRAPH (TEG)2019-12-17 07:06:00* Test Item Value Reference Range Interpretation Comments TEG ACTIVATED CLOTTING TIME (BEAKER) (test code = 1407) 4.7 minutes 4.0-7.0 TEG FIBRINOGEN ACTIVITY (BEAKER) (test code = 1408) 71.4 degrees 61 .0-73.0 TEG PLT. AGGREGATION (BEAKER) (test code = 1409) 76.1 MM 55.0- 65.0 H G=15.9K TGH ACTIVATED CLOTTING TIME (BEAKER) (test code = 1411) 4.2 minutes 4.0-7.0 TGH FIBRINOGEN ACTIVITY (BEAKER) (test code = 1412) 72.4 degrees 61 .0-73.0 TGH PLT. AGGREGATION (BEAKER) (test code = 1413) 72.8 MM 55.0- 65.0 H G=13.4K POCT-GLUCOSE [id number] 06:59:00* Test Item Value Reference Range Interpretation Comments POC-GLUCOSE METER (BEAKER) (test code = 1538) 225 mg/dL 70-110 H : TESTED AT [address], [address]: Marketing Strategy Manager/Clinical Laboratory Technician ID = [id number] for Chelsi Dejesus BLOOD GAS, [id number] 06:55:00* Test Item Value Reference Range Interpretation Comments PH ARTERIAL (BEAKER) (test code = 383) 7.35 7.35-7.45 PCO2 ARTERIAL (BEAKER) (test code = 384) 25 mmHg 35-45 L PO2 ARTERIAL (BEAKER) (test code = 385) 104 mmHg 80-90 H O2 SATURATION ARTERIAL (BEAKER) (test code = 386) 97.5 % 96.0 -97.0 H HCO3 ARTERIAL (BEAKER) (test code = 388) 14 mmol/L 21-29 L BASE EXCESS ARTERIAL (BEAKER) (test code = 387) -10.1 mmol/L -2.0-3 .0 L PATIENT TEMPERATURE (BEAKER) (test code = 1818) 37.5 C FIO2 (BEAKER) (test code = 1819) 60.0 % [id number] 06:47:00* Test Item Value Reference Range Interpretation Comments FERRITIN (BEAKER) (test code = 361) 6959.45 ng/mL 5.00-275.00 H Marketing Strategy Manager ID - LACOMPREHENSIVE METABOLIC [id number] 06:45:00* Test Item Value Reference Range Interpretation Comments TOTAL PROTEIN (BEAKER) (test code = 770) 4.3 gm/dL 6.0-8.3 L ALBUMIN (BEAKER) (test code = 1145) 2.1 g/dL 3.5-5.0 L ALKALINE PHOSPHATASE (BEAKER) (test code = 346) 140 U/L 40-150 BILIRUBIN TOTAL (BEAKER) (test code = 377) 0.9 mg/dL 0.2-1.2 SODIUM (BEAKER) (test code = 381) 141 meq/L 136-145 POTASSIUM (BEAKER) (test code = 379) 3.0 meq/L 3.5-5.1 L CHLORIDE (BEAKER) (test code = 382) 118 meq/L 98-107 H CO2 (BEAKER) (test code = 355) 12 meq/L 22-29 L BLOOD UREA NITROGEN (BEAKER) (test code = 354) 34 mg/dL 7-21 H CREATININE (BEAKER) (test code = 358) 1.25 mg/dL 0.57-1.25 GLUCOSE RANDOM (BEAKER) (test code = 652) 253 mg/dL 70-105 H CALCIUM (BEAKER) (test code = 697) 5.5 mg/dL 8.4-10.2 LL AST (SGOT) (BEAKER) (test code = 353) 196 U/L 5-34 H ALT (SGPT) (BEAKER) (test code = 347) 162 U/L 6-55 H EGFR (BEAKER) (test code = 1092) 60 mL/min/1.73 sq m ESTIMATED GFR IS NOT ACCURATE CREATININE CLEARANCE IN PREDICTING GLOMERULAR FILTRATION RATE. ESTIMATED GFR IS NOT APPLICABLE FOR DIALYSIS PATIENTS. Marketing Strategy Manager ID - [id number] 05:52:00* Test Item Value Reference Range Interpretation Comments PHOSPHORUS (BEAKER) (test code = 604) 2.1 mg/dL 2.3-4.7 L Marketing Strategy Manager ID - [id number] 05:52:00* Test Item Value Reference Range Interpretation Comments MAGNESIUM (BEAKER) (test code = 627) 1.4 mg/dL 1.6-2.6 L Marketing Strategy Manager ID - LALACTATE DEHYDROGENASE (LDH)2019-12-17 05:52:00* Test Item Value Reference Range Interpretation Comments LACTATE DEHYDROGENASE (BEAKER) (test code = 635) 835 U/L 125-2 20 H Marketing Strategy Manager ID - LAC-REACTIVE [id number] 05:52:00* Test Item Value Reference Range Interpretation Comments C-REACTIVE PROTEIN (BEAKER) (test code = 676) 3.06 mg/dL 0.00-0.5 0 H Marketing Strategy Manager ID - LACBC W/PLT COUNT & AUTO [id number] 05:18:00* Test Item Value Reference Range Interpretation Comments WHITE BLOOD CELL COUNT (BEAKER) (test code = 775) 22.2 K/ L 3.5- 10.5 H RED BLOOD CELL COUNT (BEAKER) (test code = 761) 5.62 M/ L 4.63-6 .08 HEMOGLOBIN (BEAKER) (test code = 410) 15.7 GM/DL 13.7-17.5 HEMATOCRIT (BEAKER) (test code = 411) 47.7 % 40.1-51.0 MEAN CORPUSCULAR VOLUME (BEAKER) (test code = 753) 84.9 fL 79. 0-92.2 MEAN CORPUSCULAR HEMOGLOBIN (BEAKER) (test code = 751) 27.9 pg 25.7-32.2 MEAN CORPUSCULAR HEMOGLOBIN CONC (BEAKER) (test code = 752) 32.9 GM/DL 32.3-36.5 RED CELL DISTRIBUTION WIDTH (BEAKER) (test code = 412) 13.9 % 11.6-14.4 PLATELET COUNT (BEAKER) (test code = 756) 128 K/CU MM 150-450 L MEAN PLATELET VOLUME (BEAKER) (test code = 754) 12.4 fL 9.4-12 .4 NUCLEATED RED BLOOD CELLS (BEAKER) (test code = 413) 0 /100 WBC 0 -0 NEUTROPHILS RELATIVE PERCENT (BEAKER) (test code = 429) 87 % LYMPHOCYTES RELATIVE PERCENT (BEAKER) (test code = 430) 5 % MONOCYTES RELATIVE PERCENT (BEAKER) (test code = 431) 6 % EOSINOPHILS RELATIVE PERCENT (BEAKER) (test code = 432) 0 % BASOPHILS RELATIVE PERCENT (BEAKER) (test code = 437) 0 % NEUTROPHILS ABSOLUTE COUNT (BEAKER) (test code = 670) 19.40 K/ L 1.78-5.38 H LYMPHOCYTES ABSOLUTE COUNT (BEAKER) (test code = 414) 1.11 K/ L 1.32-3.57 L MONOCYTES ABSOLUTE COUNT (BEAKER) (test code = 415) 1.25 K/ L 0. 30-0.82 H EOSINOPHILS ABSOLUTE COUNT (BEAKER) (test code = 416) 0.00 K/ L 0.04-0.54 L BASOPHILS ABSOLUTE COUNT (BEAKER) (test code = 417) 0.04 K/ L 0. 01-0.08 IMMATURE GRANULOCYTES-RELATIVE PERCENT (BEAKER) (test code = 2801) 2 % 0-1 H [id number] 02:05:00* Test Item Value Reference Range Interpretation Comments POTASSIUM (BEAKER) (test code = 379) 3.4 meq/L 3.5-5.1 L Specimen slightly hemolyzed Marketing Strategy Manager ID - LABLOOD GAS, [id number] 01:46:00* Test Item Value Reference Range Interpretation Comments PH ARTERIAL (BEAKER) (test code = 383) 7.38 7.35-7.45 PCO2 ARTERIAL (BEAKER) (test code = 384) 31 mmHg 35-45 L PO2 ARTERIAL (BEAKER) (test code = 385) 69 mmHg 80-90 L O2 SATURATION ARTERIAL (BEAKER) (test code = 386) 93.7 % 96.0 -97.0 L HCO3 ARTERIAL (BEAKER) (test code = 388) 18 mmol/L 21-29 L BASE EXCESS ARTERIAL (BEAKER) (test code = 387) -5.8 mmol/L -2.0-3 .0 L PATIENT TEMPERATURE (BEAKER) (test code = 1818) 37.0 C FIO2 (BEAKER) (test code = 1819) 45.0 % POCT-GLUCOSE [id number] 00:31:00* Test Item Value Reference Range Interpretation Comments POC-GLUCOSE METER (BEAKER) (test code = 1538) 235 mg/dL 70-110 H : TESTED AT [facility] [address] [facility] [place], [address]: Marketing Strategy Manager/Clinical Laboratory Technician ID = [id number] for Chelsi Dejesus [id number] 22:43:00* Test Item Value Reference Range Interpretation Comments POTASSIUM (BEAKER) (test code = 379) 4.0 meq/L 3.5-5.1 Marketing Strategy Manager ID - [id number] 22:43:00* Test Item Value Reference Range Interpretation Comments MAGNESIUM (BEAKER) (test code = 627) 1.8 mg/dL 1.6-2.6 Marketing Strategy Manager ID - [id number] 22:43:00* Test Item Value Reference Range Interpretation Comments PHOSPHORUS (BEAKER) (test code = 604) 3.5 mg/dL 2.3-4.7 Marketing Strategy Manager ID - [id number] 22:43:00* Test Item Value Reference Range Interpretation Comments SODIUM (BEAKER) (test code = 381) 140 meq/L 136-145 Marketing Strategy Manager ID - BSBLOOD [id number] 20:00:00* Test Item Value Reference Range Interpretation Comments CULTURE (BEAKER) (test code = 1095) No growth in 5 days BLOOD [id number] 20:00:00* Test Item Value Reference Range Interpretation Comments CULTURE (BEAKER) (test code = 1095) No growth in 5 days BLOOD GAS, [id number] 18:13:00* Test Item Value Reference Range Interpretation Comments PH ARTERIAL (BEAKER) (test code = 383) 7.40 7.35-7.45 PCO2 ARTERIAL (BEAKER) (test code = 384) 31 mmHg 35-45 L PO2 ARTERIAL (BEAKER) (test code = 385) 117 mmHg 80-90 H O2 SATURATION ARTERIAL (BEAKER) (test code = 386) 98.4 % 96.0 -97.0 H HCO3 ARTERIAL (BEAKER) (test code = 388) 19 mmol/L 21-29 L BASE EXCESS ARTERIAL (BEAKER) (test code = 387) -5.0 mmol/L -2.0-3 .0 L PATIENT TEMPERATURE (BEAKER) (test code = 1818) 36.3 C FIO2 (BEAKER) (test code = 1819) 45.0 % POCT-GLUCOSE [id number] 18:06:00* Test Item Value Reference Range Interpretation Comments POC-GLUCOSE METER (BEAKER) (test code = 1538) 274 mg/dL 70-110 H : TESTED AT [facility] [address] [facility] [place], [address]: Marketing Strategy Manager/Clinical Laboratory Technician ID = [id number] for XAVIER MILLIGAN [id number] 15:57:00* Test Item Value Reference Range Interpretation Comments POTASSIUM (BEAKER) (test code = 379) 4.2 meq/L 3.5-5.1 Specimen slightly hemolyzed Marketing Strategy Manager ID - BSBLOOD GAS, [id number] 14:38:00* Test Item Value Reference Range Interpretation Comments PH ARTERIAL (BEAKER) (test code = 383) 7.36 7.35-7.45 PCO2 ARTERIAL (BEAKER) (test code = 384) 37 mmHg 35-45 PO2 ARTERIAL (BEAKER) (test code = 385) 170 mmHg 80-90 H O2 SATURATION ARTERIAL (BEAKER) (test code = 386) 99.1 % 96.0 -97.0 H HCO3 ARTERIAL (BEAKER) (test code = 388) 21 mmol/L 21-29 BASE EXCESS ARTERIAL (BEAKER) (test code = 387) -4.2 mmol/L -2.0-3 .0 L PATIENT TEMPERATURE (BEAKER) (test code = 1818) 37.3 C FIO2 (BEAKER) (test code = 1819) 45.0 % [id number] 12:23:00* Test Item Value Reference Range Interpretation Comments POTASSIUM (BEAKER) (test code = 379) 3.8 meq/L 3.5-5.1 Marketing Strategy Manager ID - [id number] 12:13:00* Test Item Value Reference Range Interpretation Comments PARTIAL THROMBOPLASTIN TIME (BEAKER) (test code = 760) 41.5 seconds 22.5-36.0 H POCT-GLUCOSE [id number] 10:14:00* Test Item Value Reference Range Interpretation Comments POC-GLUCOSE METER (BEAKER) (test code = 1538) 246 mg/dL 70-110 H : TESTED AT [facility] [address] [facility] [place], [address]: Marketing Strategy Manager/Clinical Laboratory Technician ID = [id number] for XAVIER MILLIGAN [id number] 07:04:00* Test Item Value Reference Range Interpretation Comments MAGNESIUM (BEAKER) (test code = 627) 2.6 mg/dL 1.6-2.6 Specimen slightly hemolyzed Marketing Strategy Manager ID - [id number] 07:04:00* Test Item Value Reference Range Interpretation Comments PHOSPHORUS (BEAKER) (test code = 604) 4.0 mg/dL 2.3-4.7 Specimen slightly hemolyzed Marketing Strategy Manager ID - BSBASIC METABOLIC [id number] 07:04:00* Test Item Value Reference Range Interpretation Comments SODIUM (BEAKER) (test code = 381) 142 meq/L 136-145 POTASSIUM (BEAKER) (test code = 379) 4.7 meq/L 3.5-5.1 Specimen slightly hemolyzed CHLORIDE (BEAKER) (test code = 382) 108 meq/L 98-107 H CO2 (BEAKER) (test code = 355) 22 meq/L 22-29 BLOOD UREA NITROGEN (BEAKER) (test code = 354) 86 mg/dL 7-21 H CREATININE (BEAKER) (test code = 358) 1.94 mg/dL 0.57-1.25 H Specimen slightly hemolyzed GLUCOSE RANDOM (BEAKER) (test code = 652) 390 mg/dL 70-105 H CALCIUM (BEAKER) (test code = 697) 8.0 mg/dL 8.4-10.2 L EGFR (BEAKER) (test code = 1092) 36 mL/min/1.73 sq m ESTIMATED GFR IS NOT ACCURATE CREATININE CLEARANCE IN PREDICTING GLOMERULAR FILTRATION RATE. ESTIMATED GFR IS NOT APPLICABLE FOR DIALYSIS PATIENTS. Marketing Strategy Manager ID - BSCBC W/PLT COUNT & AUTO [id number] 06:49:00* Test Item Value Reference Range Interpretation Comments WHITE BLOOD CELL COUNT (BEAKER) (test code = 775) 7.7 K/ L 3.5- 10.5 RED BLOOD CELL COUNT (BEAKER) (test code = 761) 5.34 M/ L 4.63-6 .08 HEMOGLOBIN (BEAKER) (test code = 410) 14.9 GM/DL 13.7-17.5 HEMATOCRIT (BEAKER) (test code = 411) 46.8 % 40.1-51.0 MEAN CORPUSCULAR VOLUME (BEAKER) (test code = 753) 87.6 fL 79. 0-92.2 MEAN CORPUSCULAR HEMOGLOBIN (BEAKER) (test code = 751) 27.9 pg 25.7-32.2 MEAN CORPUSCULAR HEMOGLOBIN CONC (BEAKER) (test code = 752) 31.8 GM/DL 32.3-36.5 L RED CELL DISTRIBUTION WIDTH (BEAKER) (test code = 412) 13.5 % 11.6-14.4 PLATELET COUNT (BEAKER) (test code = 756) 89 K/CU MM 150-450 L MEAN PLATELET VOLUME (BEAKER) (test code = 754) 12.4 fL 9.4-12 .4 NUCLEATED RED BLOOD CELLS (BEAKER) (test code = 413) 0 /100 WBC 0 -0 (CELLAVISION MANUAL DIFF)2019-12-16 06:49:00* Test Item Value Reference Range Interpretation Comments NEUTROPHILS - REL (CELLAVISION)(BEAKER) (test code = 2816) 81 % LYMPHOCYTES - REL (CELLAVISION)(BEAKER) (test code = 2817) 8 % MONOCYTES - REL (CELLAVISION)(BEAKER) (test code = 2818) 7 % BANDS - REL (CELLAVISION)(BEAKER) (test code = 2826) 3 % 0 -10 ATYPICAL LYMPHOCYTES - REL (CELLAVISION)(BEAKER) (test code = 2829) 1 % 0-0 H NEUTROPHILS - ABS (CELLAVISION)(BEAKER) (test code = 2830) 6.24 K/ul 1.78-5.38 H LYMPHOCYTES - ABS (CELLAVISION)(BEAKER) (test code = 2831) 0.62 K/ul 1.32-3.57 L MONOCYTES - ABS (CELLAVISION)(BEAKER) (test code = 2832) 0.54 K/uL 0.30-0.82 BANDS - ABS (CELLAVISION)(BEAKER) (test code = 2840) 0.23 K/uL 0 .00-0.80 ATYPICAL LYMPHOCYTES - ABS (CELLAVISION)(BEAKER) (test code = 2858) 0.08 K/uL 0.00-0.00 H TOTAL COUNTED (BEAKER) (test code = 1351) 100 MANUAL NRBC PER 100 CELLS (BEAKER) (test code = 1353) 1 /100 WBC 0-0 H WBC MORPHOLOGY (BEAKER) (test code = 487) Normal PLT MORPHOLOGY (BEAKER) (test code = 486) Normal ANISOCYTOSIS (BEAKER) (test code = 961) 2+ moderate MICROCYTES (BEAKER) (test code = 965) 2+ moderate POIKILOCYTES (BEAKER) (test code = 966) 1+ few ARTIFACT (CELLAVISION)(BEAKER) (test code = 3432) Present PLATELET CONCENTRATION (CELLAVISION)(BEAKER) (test code = 3438) Dec reased Marketing Strategy Manager ID - Carmen OverholtUser comments: Slide comments: BLOOD GAS, ARTERIAL 2019-12-16 06:07:00* Test Item Value Reference Range Interpretation Comments PH ARTERIAL (BEAKER) (test code = 383) 7.43 7.35-7.45 PCO2 ARTERIAL (BEAKER) (test code = 384) 36 mmHg 35-45 PO2 ARTERIAL (BEAKER) (test code = 385) 120 mmHg 80-90 H O2 SATURATION ARTERIAL (BEAKER) (test code = 386) 98.6 % 96.0 -97.0 H HCO3 ARTERIAL (BEAKER) (test code = 388) 24 mmol/L 21-29 BASE EXCESS ARTERIAL (BEAKER) (test code = 387) -0.5 mmol/L -2.0-3 .0 PATIENT TEMPERATURE (BEAKER) (test code = 1818) 35.5 C FIO2 (BEAKER) (test code = 1819) 45.0 % COMPREHENSIVE METABOLIC [id number] 04:56:00* Test Item Value Reference Range Interpretation Comments TOTAL PROTEIN (BEAKER) (test code = 770) 6.2 gm/dL 6.0-8.3 ALBUMIN (BEAKER) (test code = 1145) 3.2 g/dL 3.5-5.0 L ALKALINE PHOSPHATASE (BEAKER) (test code = 346) 120 U/L 40-150 BILIRUBIN TOTAL (BEAKER) (test code = 377) 0.7 mg/dL 0.2-1.2 SODIUM (BEAKER) (test code = 381) 146 meq/L 136-145 H POTASSIUM (BEAKER) (test code = 379) 5.3 meq/L 3.5-5.1 H CHLORIDE (BEAKER) (test code = 382) 111 meq/L 98-107 H CO2 (BEAKER) (test code = 355) 24 meq/L 22-29 BLOOD UREA NITROGEN (BEAKER) (test code = 354) 95 mg/dL 7-21 H CREATININE (BEAKER) (test code = 358) 2.20 mg/dL 0.57-1.25 H GLUCOSE RANDOM (BEAKER) (test code = 652) 396 mg/dL 70-105 H CALCIUM (BEAKER) (test code = 697) 8.1 mg/dL 8.4-10.2 L AST (SGOT) (BEAKER) (test code = 353) 179 U/L 5-34 H ALT (SGPT) (BEAKER) (test code = 347) 110 U/L 6-55 H EGFR (BEAKER) (test code = 1092) 31 mL/min/1.73 sq m ESTIMATED GFR IS NOT ACCURATE CREATININE CLEARANCE IN PREDICTING GLOMERULAR FILTRATION RATE. ESTIMATED GFR IS NOT APPLICABLE FOR DIALYSIS PATIENTS. Marketing Strategy Manager ID - [id number] 03:52:00* Test Item Value Reference Range Interpretation Comments POTASSIUM (BEAKER) (test code = 379) 5.3 meq/L 3.5-5.1 H Marketing Strategy Manager ID - [id number] 03:52:00* Test Item Value Reference Range Interpretation Comments MAGNESIUM (BEAKER) (test code = 627) 2.9 mg/dL 1.6-2.6 H Marketing Strategy Manager ID - [id number] 03:52:00* Test Item Value Reference Range Interpretation Comments PHOSPHORUS (BEAKER) (test code = 604) 4.5 mg/dL 2.3-4.7 Marketing Strategy Manager ID - GALAPBLOOD GAS, [id number] 03:06:00* Test Item Value Reference Range Interpretation Comments PH ARTERIAL (BEAKER) (test code = 383) 7.39 7.35-7.45 PCO2 ARTERIAL (BEAKER) (test code = 384) 43 mmHg 35-45 PO2 ARTERIAL (BEAKER) (test code = 385) 170 mmHg 80-90 H O2 SATURATION ARTERIAL (BEAKER) (test code = 386) 99.2 % 96.0 -97.0 H HCO3 ARTERIAL (BEAKER) (test code = 388) 26 mmol/L 21-29 BASE EXCESS ARTERIAL (BEAKER) (test code = 387) 0.1 mmol/L -2.0-3 .0 PATIENT TEMPERATURE (BEAKER) (test code = 1818) 35.5 C FIO2 (BEAKER) (test code = 1819) 45.0 % [id number] 00:37:00* Test Item Value Reference Range Interpretation Comments POTASSIUM (BEAKER) (test code = 379) 4.9 meq/L 3.5-5.1 Marketing Strategy Manager ID - BSBLOOD GAS, [id number] 00:23:00* Test Item Value Reference Range Interpretation Comments PH ARTERIAL (BEAKER) (test code = 383) 7.41 7.35-7.45 PCO2 ARTERIAL (BEAKER) (test code = 384) 42 mmHg 35-45 PO2 ARTERIAL (BEAKER) (test code = 385) 83 mmHg 80-90 O2 SATURATION ARTERIAL (BEAKER) (test code = 386) 96.3 % 96.0 -97.0 HCO3 ARTERIAL (BEAKER) (test code = 388) 26 mmol/L 21-29 BASE EXCESS ARTERIAL (BEAKER) (test code = 387) 1.1 mmol/L -2.0-3 .0 PATIENT TEMPERATURE (BEAKER) (test code = 1818) 37.0 C FIO2 (BEAKER) (test code = 1819) 45.0 % [id number] 21:39:00* Test Item Value Reference Range Interpretation Comments POTASSIUM (BEAKER) (test code = 379) 4.8 meq/L 3.5-5.1 Marketing Strategy Manager ID - [id number] 21:39:00* Test Item Value Reference Range Interpretation Comments MAGNESIUM (BEAKER) (test code = 627) 3.3 mg/dL 1.6-2.6 H Marketing Strategy Manager ID - [id number] 21:39:00* Test Item Value Reference Range Interpretation Comments PHOSPHORUS (BEAKER) (test code = 604) 3.7 mg/dL 2.3-4.7 Marketing Strategy Manager ID - [id number] 21:39:00* Test Item Value Reference Range Interpretation Comments SODIUM (BEAKER) (test code = 381) 146 meq/L 136-145 H Marketing Strategy Manager ID - BSRAD, CHEST, 1 VIEW, NON [id number] 18:43:00Reason for exam:- >central line placementShould this be performed at the bedside?->YesFINAL REPORT Chest dated 12/15/2019 COMPARISON: December 13, 2019 Clinical Information: central line placement Comment: Since prior examination, there is interval placement of a left IJ central venous catheter. No pneumothorax is noted. Heart is normal in size. Pulmonary vasculature is indistinct. Inte rstitial disease is seen bilaterally suggestive of pulmonary edema or pneumonia worse than prior study. No pleural effusion or pneumothorax is seen. Endotrachea l, nasogastric tube, and right IJ centimeters catheter remain in place. Signed: Gi Shaver MDReport Verified Date/Time: 12/15/2019 18:43:08 Reading Location: [facility] C013W Consult Reading Room -GLUCOSE [id number] 18:00:00* Test Item Value Reference Range Interpretation Comments POC-GLUCOSE METER (BEAKER) (test code = 1538) 252 mg/dL 70-110 H : TESTED AT [facility] [address] [facility], [address]: Marketing Strategy Manager/Clinical Laboratory Technician ID = [id number] for BRIAN MILLIGAN [id number] 17:25:00* Test Item Value Reference Range Interpretation Comments POTASSIUM (BEAKER) (test code = 379) 3.6 meq/L 3.5-5.1 Marketing Strategy Manager ID - [id number] 17:20:00* Test Item Value Reference Range Interpretation Comments PARTIAL THROMBOPLASTIN TIME (BEAKER) (test code = 760) 64.9 seconds 22.5-36.0 H BASIC METABOLIC [id number] 15:07:00* Test Item Value Reference Range Interpretation Comments SODIUM (BEAKER) (test code = 381) 149 meq/L 136-145 H POTASSIUM (BEAKER) (test code = 379) 4.1 meq/L 3.5-5.1 CHLORIDE (BEAKER) (test code = 382) 121 meq/L 98-107 H CO2 (BEAKER) (test code = 355) 23 meq/L 22-29 BLOOD UREA NITROGEN (BEAKER) (test code = 354) 99 mg/dL 7-21 H CREATININE (BEAKER) (test code = 358) 2.02 mg/dL 0.57-1.25 H GLUCOSE RANDOM (BEAKER) (test code = 652) 293 mg/dL 70-105 H CALCIUM (BEAKER) (test code = 697) 6.0 mg/dL 8.4-10.2 LL EGFR (BEAKER) (test code = 1092) 35 mL/min/1.73 sq m ESTIMATED GFR IS NOT ACCURATE CREATININE CLEARANCE IN PREDICTING GLOMERULAR FILTRATION RATE. ESTIMATED GFR IS NOT APPLICABLE FOR DIALYSIS PATIENTS. Marketing Strategy Manager ID - NTPStrep pneumoniae antigen [id number] 14:25:00* Test Item Value Reference Range Interpretation Comments Strep pneumoniae Antigen (test code = 29805-3) Presump tive negative for pneumococcal pneumonia - see comment Presumptive negative for pneumococcal pneumonia - see comment, Presumptive negative for pneumococcal meningitis LOY (test code = LOY) Presumptive negative for pne umococcal pneumonia, suggesting no current or recent pneumococcal infection. Infection due to S. pneumoniae cannot be ruled out since the antigen present in the sample may be below the detection limit of the test. Lab Interpretation (test code = 25210-9) [facility] [id number] 14:25:00* Test Item Value Reference Range Interpretation Comments STREP PNEUMONIAE ANTIGEN ([facility]) (test code = 1615) P resumptive negative for pneumococcal pneumonia - see comment Presumptive negative for pneumococcal pneumonia - see commen Presumptive negative for pneumococcal pneumonia, suggesting no current or recent pneumococcal infection. Infection due to S. pneumoniae cannot be ruled out sinc e the antigen present in the sample may be below the detection limit of the test .Legionella antigen, [id number] 14:24:00* Test Item Value Reference Range Interpretation Comments Legionella Urine Antigen (test code = 04417-8) Negative - see comme nt Negative for L. pneumophila serogroup 1 antigen, suggesting no recent or current infection with this serogroup. Legionellosis cannot be ruled out since other serogroups and species may cause disease. [facility] Center[facility]ION[facility] ANTIGEN, [id number] 14:24:00* Test Item Value Reference Range Interpretation Comments L. PNEUMOPHILA SEROGP 1 UR AG ([facility]) (test code = 11 56) Negative - see comment Negative for L. pneu mophila serogroup 1 antigen, suggesting no recent or current infection with this serogroup. Legionellosis cannot be ruled out since other serogroups and species may cause disease. POCT-GLUCOSE [id number] 13:44:00* Test Item Value Reference Range Interpretation Comments POC-GLUCOSE METER (DASHAWN) (test code = 1538) 310 mg/dL 70-110 H : TESTED AT [facility] [address] [facility], [address]: Marketing Strategy Manager/Clinical Laboratory Technician ID = [id number] for NIKI GEORGES BLOOD GAS, [id number] 13:38:00* Test Item Value Reference Range Interpretation Comments PH ARTERIAL (BEAKER) (test code = 383) 7.42 7.35-7.45 PCO2 ARTERIAL (BEAKER) (test code = 384) 41 mmHg 35-45 PO2 ARTERIAL (BEAKER) (test code = 385) 105 mmHg 80-90 H O2 SATURATION ARTERIAL (BEAKER) (test code = 386) 97.6 % 96.0 -97.0 H HCO3 ARTERIAL (BEAKER) (test code = 388) 26 mmol/L 21-29 BASE EXCESS ARTERIAL (BEAKER) (test code = 387) 2.1 mmol/L -2.0-3 .0 PATIENT TEMPERATURE (BEAKER) (test code = 1818) 38.5 C FIO2 (BEAKER) (test code = 1819) 50.0 % Heparin Assay - Low Molecular [id number] 12:58:00* Test Item Value Reference Range Interpretation Comments Anti 10A-Lovenox (test code = 1605) 0.66 u/ml 0.6-2 LOY (test code = LOY) Anti-Factor 10-A Level (Hepa rin Assay for Low Molecular Weight Heparin)Monitoring Guidelines: Blood samples should be obtained 4 hours post subcutaneous injection (time of Peak level) Therapeutic Peak Levels: 0.6- 1.0 units/mL twice daily enoxaparin 1.0-2.0 units/mL once daily enoxaparin Ref: CHEST 2012;141:[id number] Lab Interpretation (test code = 86359-7) Normal [facility] CenterHEPAR[facility] ASSAY - LOW MOLECULAR [id number] 12:58:00* Test Item Value Reference Range Interpretation Comments LOVENOX-ANTI 10A (BEAKER) (test code = 1605) 0.66 u/ml 0.60-2.00 Anti-Factor 10-A Level (Heparin Assay for Low Molecular Weight Heparin)Monitorin g Guidelines: Blood samples should be obtained 4 hours post subcutaneous injecti on (time of Peak level) Therapeutic Peak Levels: 0.6-1.0 units/mL twice daily e noxaparin 1.0-2.0 units/mL once daily enoxaparinRef: CHEST 2012;141:[id number] BASIC METABOLIC [id number] 12:06:00* Test Item Value Reference Range Interpretation Comments SODIUM (BEAKER) (test code = 381) 152 meq/L 136-145 H POTASSIUM (BEAKER) (test code = 379) 5.2 meq/L 3.5-5.1 H CHLORIDE (BEAKER) (test code = 382) 116 meq/L 98-107 H CO2 (BEAKER) (test code = 355) 28 meq/L 22-29 BLOOD UREA NITROGEN (BEAKER) (test code = 354) 119 mg/dL 7-21 H CREATININE (BEAKER) (test code = 358) 2.87 mg/dL 0.57-1.25 H GLUCOSE RANDOM (BEAKER) (test code = 652) 148 mg/dL 70-105 H CALCIUM (BEAKER) (test code = 697) 8.0 mg/dL 8.4-10.2 L EGFR (BEAKER) (test code = 1092) 23 mL/min/1.73 sq m ESTIMATED GFR IS NOT ACCURATE CREATININE CLEARANCE IN PREDICTING GLOMERULAR FILTRATION RATE. ESTIMATED GFR IS NOT APPLICABLE FOR DIALYSIS PATIENTS. Marketing Strategy Manager ID - [id number] 11:24:00* Test Item Value Reference Range Interpretation Comments FERRITIN (BEAKER) (test code = 361) 5046.53 ng/mL 5.00-275.00 H Marketing Strategy Manager ID - NTPPOCT-GLUCOSE [id number] 10:40:00* Test Item Value Reference Range Interpretation Comments POC-GLUCOSE METER (BEAKER) (test code = 1538) 94 mg/dL 70-110 : TESTED AT [facility] [address] [facility], [address]: Marketing Strategy Manager/Clinical Laboratory Technician ID = [id number] for JOSÉ MANUEL NIKI CBC W/PLT COUNT & AUTO [id number] 08:55:00* Test Item Value Reference Range Interpretation Comments WHITE BLOOD CELL COUNT (BEAKER) (test code = 775) 3.4 K/ L 3.5- 10.5 L RED BLOOD CELL COUNT (BEAKER) (test code = 761) 5.24 M/ L 4.63-6 .08 HEMOGLOBIN (BEAKER) (test code = 410) 14.6 GM/DL 13.7-17.5 HEMATOCRIT (BEAKER) (test code = 411) 45.2 % 40.1-51.0 MEAN CORPUSCULAR VOLUME (BEAKER) (test code = 753) 86.3 fL 79. 0-92.2 MEAN CORPUSCULAR HEMOGLOBIN (BEAKER) (test code = 751) 27.9 pg 25.7-32.2 MEAN CORPUSCULAR HEMOGLOBIN CONC (BEAKER) (test code = 752) 32.3 GM/DL 32.3-36.5 RED CELL DISTRIBUTION WIDTH (BEAKER) (test code = 412) 13.2 % 11.6-14.4 PLATELET COUNT (BEAKER) (test code = 756) 86 K/CU MM 150-450 L MEAN PLATELET VOLUME (BEAKER) (test code = 754) 11.5 fL 9.4-12 .4 NUCLEATED RED BLOOD CELLS (BEAKER) (test code = 413) 0 /100 WBC 0 -0 (CELLAVISION MANUAL DIFF)2019-12-15 08:55:00* Test Item Value Reference Range Interpretation Comments NEUTROPHILS - REL (CELLAVISION)(BEAKER) (test code = 2816) 69 % LYMPHOCYTES - REL (CELLAVISION)(BEAKER) (test code = 2817) 9 % MONOCYTES - REL (CELLAVISION)(BEAKER) (test code = 2818) 16 % METAMYELOCYTES - REL (CELLAVISION)(BEAKER) (test code = 2821) 2 % 0-0 H BANDS - REL (CELLAVISION)(BEAKER) (test code = 2826) 3 % 0 -10 ATYPICAL LYMPHOCYTES - REL (CELLAVISION)(BEAKER) (test code = 2829) 1 % 0-0 H NEUTROPHILS - ABS (CELLAVISION)(BEAKER) (test code = 2830) 2.35 K/ul 1.78-5.38 LYMPHOCYTES - ABS (CELLAVISION)(BEAKER) (test code = 2831) 0.31 K/ul 1.32-3.57 L MONOCYTES - ABS (CELLAVISION)(BEAKER) (test code = 2832) 0.54 K/uL 0.30-0.82 METAMYELOCYTES - ABS (CELLAVISION)(BEAKER) (test code = 2836 ) 0.07 K/uL 0.00-0.00 H BANDS - ABS (CELLAVISION)(BEAKER) (test code = 5250) 0.10 K/uL 0 .00-0.80 ATYPICAL LYMPHOCYTES - ABS (CELLAVISION)(BEAKER) (test code = 2858) 0.03 K/uL 0.00-0.00 H TOTAL COUNTED (BEAKER) (test code = 1351) 100 SMUDGE CELLS (BEAKER) (test code = 1371) Present GIANT PLATELETS (BEAKER) (test code = 313) Present ANISOCYTOSIS (BEAKER) (test code = 961) 2+ moderate MICROCYTES (BEAKER) (test code = 965) 2+ moderate POIKILOCYTES (BEAKER) (test code = 966) 1+ few OVALOCYTES (BEAKER) (test code = 477) 1+ few HOLLI CELLS (BEAKER) (test code = 474) 1+ few PLATELET CONCENTRATION (CELLAVISION)(BEAKER) (test code = 3438) Dec reased Marketing Strategy Manager ID - Geoffrey Schmitt comments: Slide comments: POCT-GLUCOSE METER 2019-12-15 08:54:00* Test Item Value Reference Range Interpretation Comments POC-GLUCOSE METER (BEAKER) (test code = 1538) 74 mg/dL 70-110 : TESTED AT [address], [address]: Marketing Strategy Manager/Clinical Laboratory Technician ID = [id number] for NIKI GEORGES THROMBOELASTOGRAPH (TEG)2019-12-15 06:34:00* Test Item Value Reference Range Interpretation Comments TEG ACTIVATED CLOTTING TIME (BEAKER) (test code = 1407) No clot detected.R time 41.0 min. TEG FIBRINOGEN ACTIVITY (BEAKER) (test code = 1408) No clot detected. TEG PLT. AGGREGATION (BEAKER) (test code = 1409) No clot detected. TEG FIBRINOLYSIS (BEAKER) (test code = 1410) No clot detected. TGH ACTIVATED CLOTTING TIME (BEAKER) (test code = 1411) 10.2 minute s 4.0-7.0 H TGH FIBRINOGEN ACTIVITY (BEAKER) (test code = 1412) 62.6 degrees 61 .0-73.0 TGH PLT. AGGREGATION (BEAKER) (test code = 1413) 61.5 MM 55.0- 65.0 BLOOD GAS, [id number] 06:02:00* Test Item Value Reference Range Interpretation Comments PH ARTERIAL (BEAKER) (test code = 383) 7.42 7.35-7.45 PCO2 ARTERIAL (BEAKER) (test code = 384) 43 mmHg 35-45 PO2 ARTERIAL (BEAKER) (test code = 385) 216 mmHg 80-90 H O2 SATURATION ARTERIAL (BEAKER) (test code = 386) 99.4 % 96.0 -97.0 H HCO3 ARTERIAL (BEAKER) (test code = 388) 26 mmol/L 21-29 BASE EXCESS ARTERIAL (BEAKER) (test code = 387) 2.1 mmol/L -2.0-3 .0 PATIENT TEMPERATURE (BEAKER) (test code = 1818) 39.0 C FIO2 (BEAKER) (test code = 1819) 90.0 % POCT-GLUCOSE [id number] 05:49:00* Test Item Value Reference Range Interpretation Comments POC-GLUCOSE METER (BEAKER) (test code = 1538) 129 mg/dL 70-110 H : TESTED AT [facility] [address] [facility], [address]: Marketing Strategy Manager/Clinical Laboratory Technician ID = [id number] for Haylie Moore (contract) [id number] 05:33:00* Test Item Value Reference Range Interpretation Comments PROCALCITONIN (BEAKER) (test code = 3036) 2.37 ng/mL <0.05 H SEPSIS RISK (ng/mL)Low: 0.05-0.50Intermediate: 0.51-2.00High: > =[id number] 04:56:00* Test Item Value Reference Range Interpretation Comments PHOSPHORUS (BEAKER) (test code = 604) 2.9 mg/dL 2.3-4.7 Marketing Strategy Manager ID - PIAYA [id number] 04:56:00* Test Item Value Reference Range Interpretation Comments MAGNESIUM (BEAKER) (test code = 627) 3.5 mg/dL 1.6-2.6 H Marketing Strategy Manager ID - PIAYA LLACTATE DEHYDROGENASE (LDH)2019-12-15 04:56:00* Test Item Value Reference Range Interpretation Comments LACTATE DEHYDROGENASE (BEAKER) (test code = 635) 767 U/L 125-2 20 H Marketing Strategy Manager ID - PIAYA LC-REACTIVE [id number] 04:56:00* Test Item Value Reference Range Interpretation Comments C-REACTIVE PROTEIN (BEAKER) (test code = 676) 4.41 mg/dL 0.00-0.5 0 H Marketing Strategy Manager ID - LUISA [id number] 04:46:00* Test Item Value Reference Range Interpretation Comments PARTIAL THROMBOPLASTIN TIME (BEAKER) (test code = 760) 58.7 seconds 22.5-36.0 H POCT-GLUCOSE [id number] 03:28:00* Test Item Value Reference Range Interpretation Comments POC-GLUCOSE METER (BEAKER) (test code = 1538) 135 mg/dL 70-110 H : TESTED AT [address], [address]: Marketing Strategy Manager/Clinical Laboratory Technician ID = [id number] for Haylie Moore (contract) POCT-GLUCOSE [id number] 02:21:00* Test Item Value Reference Range Interpretation Comments POC-GLUCOSE METER (BEAKER) (test code = 1538) 127 mg/dL 70-110 H : TESTED AT [address], [address]: Marketing Strategy Manager/Clinical Laboratory Technician ID = [id number] for Haylie Moore (contract) [id number] 00:43:00* Test Item Value Reference Range Interpretation Comments PARTIAL THROMBOPLASTIN TIME (BEAKER) (test code = 760) 68.2 seconds 22.5-36.0 H POCT-GLUCOSE [id number] 00:23:00* Test Item Value Reference Range Interpretation Comments POC-GLUCOSE METER (BEAKER) (test code = 1538) 123 mg/dL 70-110 H : TESTED AT [address], [address]: Marketing Strategy Manager/Clinical Laboratory Technician ID = [id number] for Haylie Moore (contract) BLOOD GAS, [id number] 23:29:00* Test Item Value Reference Range Interpretation Comments PH ARTERIAL (BEAKER) (test code = 383) 7.39 7.35-7.45 PCO2 ARTERIAL (BEAKER) (test code = 384) 49 mmHg 35-45 H PO2 ARTERIAL (BEAKER) (test code = 385) 187 mmHg 80-90 H O2 SATURATION ARTERIAL (BEAKER) (test code = 386) 99.2 % 96.0 -97.0 H HCO3 ARTERIAL (BEAKER) (test code = 388) 28 mmol/L 21-29 BASE EXCESS ARTERIAL (BEAKER) (test code = 387) 3.3 mmol/L -2.0-3 .0 H PATIENT TEMPERATURE (BEAKER) (test code = 1818) 39.5 C FIO2 (BEAKER) (test code = 1819) 90.0 % POCT-GLUCOSE [id number] 23:28:00* Test Item Value Reference Range Interpretation Comments POC-GLUCOSE METER (BEAKER) (test code = 1538) 161 mg/dL 70-110 H : TESTED AT [facility] [address] [facility], [address]: Marketing Strategy Manager/Clinical Laboratory Technician ID = [id number] for Haylie Moore (contract) POCT-GLUCOSE [id number] 21:56:00* Test Item Value Reference Range Interpretation Comments POC-GLUCOSE METER (BEAKER) (test code = 1538) 249 mg/dL 70-110 H : TESTED AT [facility] [address] [facility], [address]: Marketing Strategy Manager/Clinical Laboratory Technician ID = [id number] for Oscar Haylie (contract) [id number] 21:50:00* Test Item Value Reference Range Interpretation Comments PARTIAL THROMBOPLASTIN TIME (BEAKER) (test code = 760) 104.8 sec onds 22.5-36.0 H THROMBOELASTOGRAPH (TEG)2019-12-14 20:30:00* Test Item Value Reference Range Interpretation Comments TEG ACTIVATED CLOTTING TIME (BEAKER) (test code = 1407) No clotting activity detected, TGH ACTIVATED CLOTTING TIME (BEAKER) (test code = 1411) 29.8 minute s 4.0-7.0 H TGH FIBRINOGEN ACTIVITY (BEAKER) (test code = 1412) 40.8 degrees 61 .0-73.0 L TGH PLT. AGGREGATION (BEAKER) (test code = 1413) 60.4 MM 55.0- 65.0 BLOOD GAS, [id number] 20:26:00* Test Item Value Reference Range Interpretation Comments PH ARTERIAL (BEAKER) (test code = 383) 7.39 7.35-7.45 PCO2 ARTERIAL (BEAKER) (test code = 384) 48 mmHg 35-45 H PO2 ARTERIAL (BEAKER) (test code = 385) 187 mmHg 80-90 H O2 SATURATION ARTERIAL (BEAKER) (test code = 386) 99.3 % 96.0 -97.0 H HCO3 ARTERIAL (BEAKER) (test code = 388) 28 mmol/L 21-29 BASE EXCESS ARTERIAL (BEAKER) (test code = 387) 2.2 mmol/L -2.0-3 .0 PATIENT TEMPERATURE (BEAKER) (test code = 1818) 37.0 C FIO2 (BEAKER) (test code = 1819) 100.0 % POCT-GLUCOSE [id number] 20:21:00* Test Item Value Reference Range Interpretation Comments POC-GLUCOSE METER (BEAKER) (test code = 1538) 348 mg/dL 70-110 H : TESTED AT [address], [address]: Marketing Strategy Manager/Clinical Laboratory Technician ID = [id number] for Oscar Haylie (contract) [id number] 19:51:00* Test Item Value Reference Range Interpretation Comments PARTIAL THROMBOPLASTIN TIME (BEAKER) (test code = 760) > seconds 22.5-36.0 HH BASIC METABOLIC [id number] 18:47:00* Test Item Value Reference Range Interpretation Comments SODIUM (BEAKER) (test code = 381) 148 meq/L 136-145 H POTASSIUM (BEAKER) (test code = 379) 5.1 meq/L 3.5-5.1 CHLORIDE (BEAKER) (test code = 382) 114 meq/L 98-107 H CO2 (BEAKER) (test code = 355) 25 meq/L 22-29 BLOOD UREA NITROGEN (BEAKER) (test code = 354) 108 mg/dL 7-21 H CREATININE (BEAKER) (test code = 358) 2.68 mg/dL 0.57-1.25 H GLUCOSE RANDOM (BEAKER) (test code = 652) 427 mg/dL 70-105 HH CALCIUM (BEAKER) (test code = 697) 7.2 mg/dL 8.4-10.2 L EGFR (BEAKER) (test code = 1092) 25 mL/min/1.73 sq m ESTIMATED GFR IS NOT ACCURATE CREATININE CLEARANCE IN PREDICTING GLOMERULAR FILTRATION RATE. ESTIMATED GFR IS NOT APPLICABLE FOR DIALYSIS PATIENTS. Marketing Strategy Manager ID - DBPOCT-GLUCOSE [id number] 18:40:00* Test Item Value Reference Range Interpretation Comments POC-GLUCOSE METER (BEAKER) (test code = 1538) 389 mg/dL 70-110 H : TESTED AT [address], [address]: Marketing Strategy Manager/Clinical Laboratory Technician ID = [id number] for MANUEL BEACHRED BLOOD GAS, [id number] 18:36:00* Test Item Value Reference Range Interpretation Comments PH ARTERIAL (BEAKER) (test code = 383) 7.40 7.35-7.45 PCO2 ARTERIAL (BEAKER) (test code = 384) 46 mmHg 35-45 H PO2 ARTERIAL (BEAKER) (test code = 385) 265 mmHg 80-90 H O2 SATURATION ARTERIAL (BEAKER) (test code = 386) 99.6 % 96.0 -97.0 H HCO3 ARTERIAL (BEAKER) (test code = 388) 28 mmol/L 21-29 BASE EXCESS ARTERIAL (BEAKER) (test code = 387) 2.1 mmol/L -2.0-3 .0 PATIENT TEMPERATURE (BEAKER) (test code = 1818) 36.4 C FIO2 (BEAKER) (test code = 1819) 100.0 % POCT-GLUCOSE [id number] 16:37:00* Test Item Value Reference Range Interpretation Comments POC-GLUCOSE METER (BEAKER) (test code = 1538) 328 mg/dL 70-110 H : TESTED AT [address], [address]: Marketing Strategy Manager/Clinical Laboratory Technician ID = [id number] for [place] BLOOD GAS, [id number] 13:42:00* Test Item Value Reference Range Interpretation Comments PH ARTERIAL (BEAKER) (test code = 383) 7.36 7.35-7.45 PCO2 ARTERIAL (BEAKER) (test code = 384) 40 mmHg 35-45 PO2 ARTERIAL (BEAKER) (test code = 385) 64 mmHg 80-90 L O2 SATURATION ARTERIAL (BEAKER) (test code = 386) 90.6 % 96.0 -97.0 L HCO3 ARTERIAL (BEAKER) (test code = 388) 22 mmol/L 21-29 BASE EXCESS ARTERIAL (BEAKER) (test code = 387) -2.9 mmol/L -2.0-3 .0 L PATIENT TEMPERATURE (BEAKER) (test code = 1818) 38.0 C FIO2 (BEAKER) (test code = 1819) 100.0 % POCT-GLUCOSE [id number] 13:34:00* Test Item Value Reference Range Interpretation Comments POC-GLUCOSE METER (BEAKER) (test code = 1538) 473 mg/dL 70-110 HH : Notified RN/MD: TESTED AT [address], [address]: Marketing Strategy Manager/Clinical Laboratory Technician ID = [id number] for YONG, [place] POCT-GLUCOSE [id number] 12:12:00* Test Item Value Reference Range Interpretation Comments POC-GLUCOSE METER (BEAKER) (test code = 1538) 249 mg/dL 70-110 H : TESTED AT [address], [address]: Marketing Strategy Manager/Clinical Laboratory Technician ID = [id number] for YONG, MILTON POCT-GLUCOSE [id number] 11:04:00* Test Item Value Reference Range Interpretation Comments POC-GLUCOSE METER (BEAKER) (test code = 1538) 280 mg/dL 70-110 H : TESTED AT [address], [address]: Marketing Strategy Manager/Clinical Laboratory Technician ID = [id number] for YONG, MILTON POCT-GLUCOSE [id number] 08:16:00* Test Item Value Reference Range Interpretation Comments POC-GLUCOSE METER (BEAKER) (test code = 1538) 309 mg/dL 70-110 H : TESTED AT [address], [address]: Marketing Strategy Manager/Clinical Laboratory Technician ID = [id number] for YONG, MILTON POCT-GLUCOSE [id number] 05:33:00* Test Item Value Reference Range Interpretation Comments POC-GLUCOSE METER (BEAKER) (test code = 1538) 127 mg/dL 70-110 H : TESTED AT [address], [address]: Marketing Strategy Manager/Clinical Laboratory Technician ID = [id number] for RAJ VITALE HIV-1 Antigen with HIV-1/2 [id number] 05:13:00* Test Item Value Reference Range Interpretation Comments HIV-1 Antigen with HIV 1&2 Antibody (test code = 35847-5) No nreactive Nonreactive LOY (test code = LOY) Marketing Strategy Manager ID - [id number] L Lab Interpretation (test code = 18869-7) [facility]2 [id number] 05:13:00* Test Item Value Reference Range Interpretation Comments HIV-1 ANTIGEN WITH HIV 1\\T\\2 ANTIBODY (2) (BEAKER) (te st code = 2586) Nonreactive Nonreactive Marketing Strategy Manager ID - LUISA LCOMPREHENSIVE METABOLIC [id number] 05:00:00* Test Item Value Reference Range Interpretation Comments TOTAL PROTEIN (BEAKER) (test code = 770) 6.7 gm/dL 6.0-8.3 ALBUMIN (BEAKER) (test code = 1145) 3.6 g/dL 3.5-5.0 ALKALINE PHOSPHATASE (BEAKER) (test code = 346) 142 U/L 40-150 BILIRUBIN TOTAL (BEAKER) (test code = 377) 0.6 mg/dL 0.2-1.2 SODIUM (BEAKER) (test code = 381) 145 meq/L 136-145 POTASSIUM (BEAKER) (test code = 379) 5.0 meq/L 3.5-5.1 CHLORIDE (BEAKER) (test code = 382) 108 meq/L 98-107 H CO2 (BEAKER) (test code = 355) 23 meq/L 22-29 BLOOD UREA NITROGEN (BEAKER) (test code = 354) 92 mg/dL 7-21 H CREATININE (BEAKER) (test code = 358) 2.81 mg/dL 0.57-1.25 H GLUCOSE RANDOM (BEAKER) (test code = 652) 386 mg/dL 70-105 H CALCIUM (BEAKER) (test code = 697) 8.2 mg/dL 8.4-10.2 L AST (SGOT) (BEAKER) (test code = 353) 73 U/L 5-34 H ALT (SGPT) (BEAKER) (test code = 347) 48 U/L 6-55 EGFR (BEAKER) (test code = 1092) 24 mL/min/1.73 sq m ESTIMATED GFR IS NOT ACCURATE CREATININE CLEARANCE IN PREDICTING GLOMERULAR FILTRATION RATE. ESTIMATED GFR IS NOT APPLICABLE FOR DIALYSIS PATIENTS. Marketing Strategy Manager ID - LUISA [id number] 04:54:00* Test Item Value Reference Range Interpretation Comments PHOSPHORUS (BEAKER) (test code = 604) 4.4 mg/dL 2.3-4.7 Marketing Strategy Manager ID - LUISA [id number] 04:54:00* Test Item Value Reference Range Interpretation Comments MAGNESIUM (BEAKER) (test code = 627) 3.3 mg/dL 1.6-2.6 H Marketing Strategy Manager ID - LUISA LBLOOD GAS, [id number] 04:49:00* Test Item Value Reference Range Interpretation Comments PH ARTERIAL (BEAKER) (test code = 383) 7.37 7.35-7.45 PCO2 ARTERIAL (BEAKER) (test code = 384) 37 mmHg 35-45 PO2 ARTERIAL (BEAKER) (test code = 385) 155 mmHg 80-90 H O2 SATURATION ARTERIAL (BEAKER) (test code = 386) 98.9 % 96.0 -97.0 H HCO3 ARTERIAL (BEAKER) (test code = 388) 21 mmol/L 21-29 BASE EXCESS ARTERIAL (BEAKER) (test code = 387) -3.7 mmol/L -2.0-3 .0 L PATIENT TEMPERATURE (BEAKER) (test code = 1818) 37.5 C FIO2 (BEAKER) (test code = 1819) 80.0 % [id number] 04:35:00* Test Item Value Reference Range Interpretation Comments PARTIAL THROMBOPLASTIN TIME (BEAKER) (test code = 760) 43.7 seconds 22.5-36.0 H CBC W/PLT COUNT & AUTO [id number] 04:28:00* Test Item Value Reference Range Interpretation Comments WHITE BLOOD CELL COUNT (BEAKER) (test code = 775) 5.8 K/ L 3.5- 10.5 RED BLOOD CELL COUNT (BEAKER) (test code = 761) 5.43 M/ L 4.63-6 .08 HEMOGLOBIN (BEAKER) (test code = 410) 15.0 GM/DL 13.7-17.5 HEMATOCRIT (BEAKER) (test code = 411) 45.6 % 40.1-51.0 MEAN CORPUSCULAR VOLUME (BEAKER) (test code = 753) 84.0 fL 79. 0-92.2 MEAN CORPUSCULAR HEMOGLOBIN (BEAKER) (test code = 751) 27.6 pg 25.7-32.2 MEAN CORPUSCULAR HEMOGLOBIN CONC (BEAKER) (test code = 752) 32.9 GM/DL 32.3-36.5 RED CELL DISTRIBUTION WIDTH (BEAKER) (test code = 412) 13.3 % 11.6-14.4 PLATELET COUNT (BEAKER) (test code = 756) 105 K/CU MM 150-450 L MEAN PLATELET VOLUME (BEAKER) (test code = 754) 10.6 fL 9.4-12 .4 NUCLEATED RED BLOOD CELLS (BEAKER) (test code = 413) 0 /100 WBC 0 -0 NEUTROPHILS RELATIVE PERCENT (BEAKER) (test code = 429) 76 % LYMPHOCYTES RELATIVE PERCENT (BEAKER) (test code = 430) 7 % MONOCYTES RELATIVE PERCENT (BEAKER) (test code = 431) 16 % EOSINOPHILS RELATIVE PERCENT (BEAKER) (test code = 432) 0 % BASOPHILS RELATIVE PERCENT (BEAKER) (test code = 437) 0 % NEUTROPHILS ABSOLUTE COUNT (BEAKER) (test code = 670) 4.41 K/ L 1.78-5.38 LYMPHOCYTES ABSOLUTE COUNT (BEAKER) (test code = 414) 0.39 K/ L 1.32-3.57 L MONOCYTES ABSOLUTE COUNT (BEAKER) (test code = 415) 0.93 K/ L 0. 30-0.82 H EOSINOPHILS ABSOLUTE COUNT (BEAKER) (test code = 416) 0.00 K/ L 0.04-0.54 L BASOPHILS ABSOLUTE COUNT (BEAKER) (test code = 417) 0.01 K/ L 0. 01-0.08 IMMATURE GRANULOCYTES-RELATIVE PERCENT (BEAKER) (test code = 2801) 1 % 0-1 [id number] 23:48:00* Test Item Value Reference Range Interpretation Comments PROTIME (BEAKER) (test code = 759) 13.3 seconds 11.9-14.2 INR (BEAKER) (test code = 370) 1.0 <=5.9 PARTIAL THROMBOPLASTIN TIME (BEAKER) (test code = 760) 35.5 seconds 22.5-36.0 Effective 11/04/2018: PT Reference Range ChangeNew: 11.9-14.2 Previous: 11.7-14. 7RECOMMENDED COUMADIN/WARFARIN INR THERAPY RANGESSTANDARD DOSE: 2.0-3.0 Include s: PROPHYLAXIS for venous thrombosis, systemic embolization; TREATMENT for venou s thrombosis and/or pulmonary embolus.HIGH RISK: Target INR is 2.5-3.5 for patie nts wiht mechanical heart valves.BLOOD GAS, [id number] 23:38:00* Test Item Value Reference Range Interpretation Comments PH ARTERIAL (BEAKER) (test code = 383) 7.36 7.35-7.45 PCO2 ARTERIAL (BEAKER) (test code = 384) 40 mmHg 35-45 PO2 ARTERIAL (BEAKER) (test code = 385) 162 mmHg 80-90 H O2 SATURATION ARTERIAL (BEAKER) (test code = 386) 99.0 % 96.0 -97.0 H HCO3 ARTERIAL (BEAKER) (test code = 388) 22 mmol/L 21-29 BASE EXCESS ARTERIAL (BEAKER) (test code = 387) -3.0 mmol/L -2.0-3 .0 L PATIENT TEMPERATURE (BEAKER) (test code = 1818) 37.5 C FIO2 (BEAKER) (test code = 1819) 100.0 % POCT-GLUCOSE [id number] 23:26:00* Test Item Value Reference Range Interpretation Comments POC-GLUCOSE METER (BEAKER) (test code = 1538) 391 mg/dL 70-110 H : TESTED AT [facility] [address] [facility] [place], [address]: Marketing Strategy Manager/Clinical Laboratory Technician ID = [id number] for RAJ VITALE RAD, ABDOMEN/KUB, 1 VIEW [id number] 19:56:00Reason for exam:->Feeding tubeShould this be performed at the bedside?->YesFINAL REPORT TECHNIQUE: Frontal views of the abdomen. INDICATION: 53-year-old man after feeding tube placement. COMPARISON: None. IMPRESS ION:Nasogastric/orogastric tube tip terminates over the expected region of the g astric fundus. Nonobstructive bowel gas pattern. Bones and soft tissues are unre markable. Signed: Carli Garrido MDReport Verified Date/Time: 12/13/2019 19:56 :29 Reading Location: [facility] C013W Consult Reading Room , CHEST, 1 VIEW, NON [id number] 19:54:00Reason for exam:->ETT and Central line placementShould this be performed at the bedside?->YesFINAL REPORT TECHNIQUE: Frontal view of the chest. INDICATION: 53-year-old man after endotracheal tube and central line placement. COMPARISON: Chest radiograph 12/11/2019. FINDINGS: LINES/TUBES: Endotracheal tube terminates 4.7 cm above the salomón. Right internal jugular central venous catheter terminates over the expected region of the cavoatrial junction. Nasogastric/orogastric tube terminates over the expected region of the gastric fundus. LUNGS: Unchanged to mildly decreased bilateral airspace opacities. PLEURA: No pneumothorax or significant pleural effusion. HEART AND MEDIASTINUM: Cardiomediastinal silhou ette is unchanged. BONES AND SOFT TISSUES: Unremarkable. IMPRESSION:Lines/tubes as above. Unchanged to mildly decreased bilateral airspace opacities. Signed: Carli Garrido MDReport Verified Date/Time: 12/13/2019 19:54:21 Reading Locati on: [facility] B1 C013W Consult Reading Room D GAS, [id number] 19:29:00* Test Item Value Reference Range Interpretation Comments PH ARTERIAL (BEAKER) (test code = 383) 7.35 7.35-7.45 PCO2 ARTERIAL (BEAKER) (test code = 384) 39 mmHg 35-45 PO2 ARTERIAL (BEAKER) (test code = 385) 103 mmHg 80-90 H O2 SATURATION ARTERIAL (BEAKER) (test code = 386) 97.3 % 96.0 -97.0 H HCO3 ARTERIAL (BEAKER) (test code = 388) 21 mmol/L 21-29 BASE EXCESS ARTERIAL (BEAKER) (test code = 387) -4.0 mmol/L -2.0-3 .0 L PATIENT TEMPERATURE (BEAKER) (test code = 1818) 37.5 C FIO2 (BEAKER) (test code = 1819) 100.0 % POCT-GLUCOSE [id number] 19:07:00* Test Item Value Reference Range Interpretation Comments POC-GLUCOSE METER (BEAKER) (test code = 1538) 370 mg/dL 70-110 H : TESTED AT [facility] [address] [facility] [place], [address]: Marketing Strategy Manager/Clinical Laboratory Technician ID = [id number] for Belkis Ramirez HEPATITIS C [id number] 17:09:00* Test Item Value Reference Range Interpretation Comments HEPATITIS C ANTIBODY (BEAKER) (test code = 367) Nonreactive Nonrea ctive Marketing Strategy Manager ID - DBBLOOD GAS, [id number] 13:21:00* Test Item Value Reference Range Interpretation Comments PH ARTERIAL (BEAKER) (test code = 383) 7.40 7.35-7.45 PCO2 ARTERIAL (BEAKER) (test code = 384) 33 mmHg 35-45 L PO2 ARTERIAL (BEAKER) (test code = 385) 67 mmHg 80-90 L O2 SATURATION ARTERIAL (BEAKER) (test code = 386) 93.5 % 96.0 -97.0 L HCO3 ARTERIAL (BEAKER) (test code = 388) 20 mmol/L 21-29 L BASE EXCESS ARTERIAL (BEAKER) (test code = 387) -3.9 mmol/L -2.0-3 .0 L PATIENT TEMPERATURE (BEAKER) (test code = 1818) 37.0 C FIO2 (BEAKER) (test code = 1819) 60.0 % POCT-GLUCOSE [id number] 13:15:00* Test Item Value Reference Range Interpretation Comments POC-GLUCOSE METER (BEAKER) (test code = 1538) 346 mg/dL 70-110 H : TESTED AT [address], [address]: Marketing Strategy Manager/Clinical Laboratory Technician ID = [id number] for Belkis Ramirez [id number] 07:56:00* Test Item Value Reference Range Interpretation Comments FERRITIN (BEAKER) (test code = 361) 7536.27 ng/mL 5.00-275.00 H Marketing Strategy Manager ID - NTPEosinophil [id number] 07:19:00* Test Item Value Reference Range Interpretation Comments Eosinophil Smear (test code = 01273-1) No EOS seen No EOS seen Lab Interpretation (test code = 71333-7) [facility], [id number] 07:19:00* Test Item Value Reference Range Interpretation Comments EOSINOPHIL SMEAR, URINE (BEAKER) (test code = 1851) No EOS seen No EOS seen POCT-GLUCOSE [id number] 05:48:00* Test Item Value Reference Range Interpretation Comments POC-GLUCOSE METER (BEAKER) (test code = 1538) 250 mg/dL 70-110 H : TESTED AT [address], [address]: Marketing Strategy Manager/Clinical Laboratory Technician ID = [id number] for FROILAN ALICIA URINALYSIS W/ REFLEX URINE [id number] 04:42:00* Test Item Value Reference Range Interpretation Comments COLOR (BEAKER) (test code = 470) Yellow CLARITY (BEAKER) (test code = 469) Clear SPECIFIC GRAVITY UA (BEAKER) (test code = 468) 1.028 1.001-1 .035 PH UA (BEAKER) (test code = 467) 7.0 5.0-8.0 PROTEIN UA (BEAKER) (test code = 464) 200 mg/dL Negative A GLUCOSE UA (BEAKER) (test code = 365) Negative Negative KETONES UA (BEAKER) (test code = 371) Negative Negative BILIRUBIN UA (BEAKER) (test code = 462) Negative Negative BLOOD UA (BEAKER) (test code = 461) Negative Negative NITRITE UA (BEAKER) (test code = 465) Negative Negative LEUKOCYTE ESTERASE UA (BEAKER) (test code = 466) Negative Negat vince UROBILINOGEN UA (BEAKER) (test code = 463) 6.0 mg/dL 0.2-1.0 H RBC UA (BEAKER) (test code = 519) < /HPF WBC UA (BEAKER) (test code = 520) 1 /HPF SOURCE(BEAKER) (test code = 2795) Marketing Strategy Manager ID - [auto]Marketing Strategy Manager ID - techOperator ID - [auto]LACTATE DEHYDROGENASE (LDH)2019-12-13 04:36:00* Test Item Value Reference Range Interpretation Comments LACTATE DEHYDROGENASE (BEAKER) (test code = 635) 827 U/L 125-2 20 H Specimen slightly hemolyzed Marketing Strategy Manager ID - PIAYA LCOMPREHENSIVE METABOLIC [id number] 04:36:00* Test Item Value Reference Range Interpretation Comments TOTAL PROTEIN (BEAKER) (test code = 770) 6.9 gm/dL 6.0-8.3 Specimen slightly hemolyzed ALBUMIN (BEAKER) (test code = 1145) 3.7 g/dL 3.5-5.0 Specimen slightly hemolyzed ALKALINE PHOSPHATASE (BEAKER) (test code = 346) 150 U/L 40-150 BILIRUBIN TOTAL (BEAKER) (test code = 377) 0.6 mg/dL 0.2-1.2 Specimen slightly hemolyzed SODIUM (BEAKER) (test code = 381) 140 meq/L 136-145 POTASSIUM (BEAKER) (test code = 379) 4.9 meq/L 3.5-5.1 Specimen slightly hemolyzed CHLORIDE (BEAKER) (test code = 382) 104 meq/L 98-107 CO2 (BEAKER) (test code = 355) 21 meq/L 22-29 L BLOOD UREA NITROGEN (BEAKER) (test code = 354) 77 mg/dL 7-21 H CREATININE (BEAKER) (test code = 358) 2.51 mg/dL 0.57-1.25 H Specimen slightly hemolyzed GLUCOSE RANDOM (BEAKER) (test code = 652) 301 mg/dL 70-105 H CALCIUM (BEAKER) (test code = 697) 8.5 mg/dL 8.4-10.2 AST (SGOT) (BEAKER) (test code = 353) 74 U/L 5-34 H Specimen slightly hemolyzed ALT (SGPT) (BEAKER) (test code = 347) 43 U/L 6-55 Specimen slightly hemolyzed EGFR (BEAKER) (test code = 1092) 27 mL/min/1.73 sq m ESTIMATED GFR IS NOT ACCURATE CREATININE CLEARANCE IN PREDICTING GLOMERULAR FILTRATION RATE. ESTIMATED GFR IS NOT APPLICABLE FOR DIALYSIS PATIENTS. Marketing Strategy Manager ID - PIAYA [id number] 04:34:00* Test Item Value Reference Range Interpretation Comments MAGNESIUM (BEAKER) (test code = 627) 3.1 mg/dL 1.6-2.6 H Specimen slightly hemolyzed Marketing Strategy Manager ID - PIAYA [id number] 04:34:00* Test Item Value Reference Range Interpretation Comments PHOSPHORUS (BEAKER) (test code = 604) 3.6 mg/dL 2.3-4.7 Specimen slightly hemolyzed Marketing Strategy Manager ID - PIAYA LC-REACTIVE [id number] 04:34:00* Test Item Value Reference Range Interpretation Comments C-REACTIVE PROTEIN (BEAKER) (test code = 676) 13.58 mg/dL 0.00-0.5 0 H Marketing Strategy Manager ID - PIAYA LB-TYPE NATRIURETIC FACTOR (BNP)2019-12-13 04:28:00* Test Item Value Reference Range Interpretation Comments B-TYPE NATRIURETIC PEPTIDE (BEAKER) (test code = 700) 79 pg/mL 0-100 Marketing Strategy Manager ID - PIAYA LTHROMBOELASTOGRAPH (TEG)2019-12-13 04:28:00* Test Item Value Reference Range Interpretation Comments TEG ACTIVATED CLOTTING TIME (BEAKER) (test code = 1407) 7.1 minutes 4.0-7.0 H TEG FIBRINOGEN ACTIVITY (BEAKER) (test code = 1408) 62.5 degrees 61 .0-73.0 TEG PLT. AGGREGATION (BEAKER) (test code = 1409) 68.3 MM 55.0- 65.0 H TGH ACTIVATED CLOTTING TIME (BEAKER) (test code = 1411) 6.8 minutes 4.0-7.0 TGH FIBRINOGEN ACTIVITY (BEAKER) (test code = 1412) 62.3 degrees 61 .0-73.0 TGH PLT. AGGREGATION (BEAKER) (test code = 1413) 68.9 MM 55.0- 65.0 H [id number] 04:26:00* Test Item Value Reference Range Interpretation Comments PROCALCITONIN (BEAKER) (test code = 3036) 4.18 ng/mL <0.05 H SEPSIS RISK (ng/mL)Low: 0.05-0.50Intermediate: 0.51-2.00High: > =2.01CALCIUM, [id number] 03:49:00* Test Item Value Reference Range Interpretation Comments CALCIUM IONIZED (BEAKER) (test code = 698) 1.11 mmol/L 1.12-1.27 L PH, BLOOD (BEAKER) (test code = 1810) 7.37 CBC W/PLT COUNT & AUTO [id number] 03:49:00* Test Item Value Reference Range Interpretation Comments WHITE BLOOD CELL COUNT (BEAKER) (test code = 775) 4.1 K/ L 3.5- 10.5 RED BLOOD CELL COUNT (BEAKER) (test code = 761) 5.42 M/ L 4.63-6 .08 HEMOGLOBIN (BEAKER) (test code = 410) 15.2 GM/DL 13.7-17.5 HEMATOCRIT (BEAKER) (test code = 411) 44.8 % 40.1-51.0 MEAN CORPUSCULAR VOLUME (BEAKER) (test code = 753) 82.7 fL 79. 0-92.2 MEAN CORPUSCULAR HEMOGLOBIN (BEAKER) (test code = 751) 28.0 pg 25.7-32.2 MEAN CORPUSCULAR HEMOGLOBIN CONC (BEAKER) (test code = 752) 33.9 GM/DL 32.3-36.5 RED CELL DISTRIBUTION WIDTH (BEAKER) (test code = 412) 13.3 % 11.6-14.4 PLATELET COUNT (BEAKER) (test code = 756) 84 K/CU MM 150-450 L MEAN PLATELET VOLUME (BEAKER) (test code = 754) 11.6 fL 9.4-12 .4 NUCLEATED RED BLOOD CELLS (BEAKER) (test code = 413) 0 /100 WBC 0 -0 NEUTROPHILS RELATIVE PERCENT (BEAKER) (test code = 429) 76 % LYMPHOCYTES RELATIVE PERCENT (BEAKER) (test code = 430) 11 % MONOCYTES RELATIVE PERCENT (BEAKER) (test code = 431) 12 % EOSINOPHILS RELATIVE PERCENT (BEAKER) (test code = 432) 0 % BASOPHILS RELATIVE PERCENT (BEAKER) (test code = 437) 0 % NEUTROPHILS ABSOLUTE COUNT (BEAKER) (test code = 670) 3.11 K/ L 1.78-5.38 LYMPHOCYTES ABSOLUTE COUNT (BEAKER) (test code = 414) 0.44 K/ L 1.32-3.57 L MONOCYTES ABSOLUTE COUNT (BEAKER) (test code = 415) 0.51 K/ L 0. 30-0.82 EOSINOPHILS ABSOLUTE COUNT (BEAKER) (test code = 416) 0.00 K/ L 0.04-0.54 L BASOPHILS ABSOLUTE COUNT (BEAKER) (test code = 417) 0.01 K/ L 0. 01-0.08 IMMATURE GRANULOCYTES-RELATIVE PERCENT (BEAKER) (test code = 2801) 1 % 0-1 Sodium, random [id number] 02:25:00* Test Item Value Reference Range Interpretation Comments Sodium Urine (test code = 2955-3) 32 meq/L LOY (test code = LYO) Reference Range: No NormalsOperator ID - PIAY [facility] Center[facility]itrogen, random [id number] 02:25:00* Test Item Value Reference Range Interpretation Comments Urea Nitrogen, Ur (test code = 3095-7) 567 mg/dL LOY (test code = LOY) Reference Range: No NormalsOperator ID - PIAY [facility] [id number] 02:25:00* Test Item Value Reference Range Interpretation Comments SODIUM URINE (BEAKER) (test code = 243) 32 meq/L Reference Range: No NormalsOperator ID - PIAYA LUREA NITROGEN, RANDOM URINE 2019-12-13 02:25:00* Test Item Value Reference Range Interpretation Comments UREA NITROGEN URINE (BEAKER) (test code = 538) 567 mg/dL Reference Range: No NormalsOperator ID - PIAYA LCreatinine, random urine 2019-12-13 01:17:00* Test Item Value Reference Range Interpretation Comments Creatinine, Ur (test code = 2161-8) 68.1 mg/dL LOY (test code = LOY) Reference Range: No NormalsOperator ID - PIAY A [facility] CenterPotassium, random [id number] 01:17:00* Test Item Value Reference Range Interpretation Comments Potassium Urine (test code = 2828-2) 24.0 meq/L LOY (test code = LOY) Reference Range: No NormalsOperator ID - PIAY A [facility] CenterProtein, random [id number] 01:17:00* Test Item Value Reference Range Interpretation Comments Protein, Urine (test code = 2888-6) 32 mg/dL 0-14 H LOY (test code = LOY) Marketing Strategy Manager ID - PIAYA L Lab Interpretation (test code = 90354-1) [facility]normal [facility]OM [id number] 01:17:00* Test Item Value Reference Range Interpretation Comments CREATININE URINE (BEAKER) (test code = 375) 68.1 mg/dL Reference Range: No NormalsOperator ID - PIAYA LPOTASSIUM, RANDOM URINE 2019-12-13 01:17:00* Test Item Value Reference Range Interpretation Comments POTASSIUM URINE (BEAKER) (test code = 195) 24.0 meq/L Reference Range: No NormalsOperator ID - PIAYA LPROTEIN, RANDOM [id number] 01:17:00* Test Item Value Reference Range Interpretation Comments PROTEIN, URINE (BEAKER) (test code = 1569) 32 mg/dL 0-14 H Marketing Strategy Manager ID - PIAYA VALDEZ/S, RENAL, [id number] 00:51:00Reason for exam:-> AKIFINAL REPORT Renal ultrasound dated 12/12/2019 CLINICAL HISTORY: BHARAT COMPARISON: None Comment: Real-time transabdominal renal ultrasound was performed. The examination is limited by patient body habitus. Right kidney measures 11.5 x 6.4 x 6.2 cm. Left kidney measures 11.3 x 5.5 x 4.7 cm. Right renal cortex measures 1.2 cm. Left renal cortex measures 1.3 cm. Renal parenchymal echogenicity: Grossly normal. No hydronephrosis, nephrolithiasis or solid mass is seen. No cyst is identified on either kidney. Doppler ultrasound demonstrates a patent main renal artery and vein bilaterally. The bladder is unremarkable. Impression: Unremarkable ultrasound appearance of the kidneys. Signed: Vj Saundersort Verified Date/Time: 12/13/2019 00:51:55 D GAS, [id number] 22:35:00* Test Item Value Reference Range Interpretation Comments PH ARTERIAL (BEAKER) (test code = 383) 7.34 7.35-7.45 L PCO2 ARTERIAL (BEAKER) (test code = 384) 36 mmHg 35-45 PO2 ARTERIAL (BEAKER) (test code = 385) 116 mmHg 80-90 H O2 SATURATION ARTERIAL (BEAKER) (test code = 386) 98.0 % 96.0 -97.0 H HCO3 ARTERIAL (BEAKER) (test code = 388) 19 mmol/L 21-29 L BASE EXCESS ARTERIAL (BEAKER) (test code = 387) -6.0 mmol/L -2.0-3 .0 L PATIENT TEMPERATURE (BEAKER) (test code = 1818) 37.0 C FIO2 (BEAKER) (test code = 1819) 80.0 % POCT-GLUCOSE [id number] 22:34:00* Test Item Value Reference Range Interpretation Comments POC-GLUCOSE METER (BEAKER) (test code = 1538) 339 mg/dL 70-110 H : TESTED AT [facility] [address] [place] [address], [address]: Marketing Strategy Manager/Clinical Laboratory Technician ID = [id number] for FROILAN ALICIA OXYGEN SATURATION, [id number] 20:30:00* Test Item Value Reference Range Interpretation Comments O2 SATURATION (MEASURED) (BEAKER) (test code = 1455) 91.4 % BASIC METABOLIC [id number] 19:46:00* Test Item Value Reference Range Interpretation Comments SODIUM (BEAKER) (test code = 381) 136 meq/L 136-145 POTASSIUM (BEAKER) (test code = 379) 5.1 meq/L 3.5-5.1 Specimen slightly hemolyzed CHLORIDE (BEAKER) (test code = 382) 100 meq/L 98-107 CO2 (BEAKER) (test code = 355) 16 meq/L 22-29 L BLOOD UREA NITROGEN (BEAKER) (test code = 354) 78 mg/dL 7-21 H CREATININE (BEAKER) (test code = 358) 3.03 mg/dL 0.57-1.25 H Specimen slightly hemolyzed GLUCOSE RANDOM (BEAKER) (test code = 652) 424 mg/dL 70-105 HH CALCIUM (BEAKER) (test code = 697) 8.1 mg/dL 8.4-10.2 L EGFR (BEAKER) (test code = 1092) 22 mL/min/1.73 sq m ESTIMATED GFR IS NOT ACCURATE CREATININE CLEARANCE IN PREDICTING GLOMERULAR FILTRATION RATE. ESTIMATED GFR IS NOT APPLICABLE FOR DIALYSIS PATIENTS. Marketing Strategy Manager ID - [id number] 19:32:00* Test Item Value Reference Range Interpretation Comments MAGNESIUM (BEAKER) (test code = 627) 3.0 mg/dL 1.6-2.6 H Specimen slightly hemolyzed Marketing Strategy Manager ID - [id number] 19:32:00* Test Item Value Reference Range Interpretation Comments PHOSPHORUS (BEAKER) (test code = 604) 5.1 mg/dL 2.3-4.7 H Specimen slightly hemolyzed Marketing Strategy Manager ID - DBLactic acid, [id number] 19:27:00* Test Item Value Reference Range Interpretation Comments Lactate, Venous (test code = 2872) 1.49 mmol/L 0.5-2.2 Specimen moderately hemolyzed LOY (test code = LOY) Marketing Strategy Manager ID - DB Lab Interpretation (test code = 99161-5) Normal [facility] Center[facility], [id number] 19:27:00* Test Item Value Reference Range Interpretation Comments LACTATE BLOOD VENOUS (2) (BEAKER) (test code = 2872) 1.49 mmol/L 0 .50-2.20 Specimen moderately hemolyzed Marketing Strategy Manager ID - [id number] 19:26:00* Test Item Value Reference Range Interpretation Comments FIBRINOGEN LEVEL (BEAKER) (test code = 658) 611 mg/dl 225-434 H [id number] 19:26:00* Test Item Value Reference Range Interpretation Comments PARTIAL THROMBOPLASTIN TIME (BEAKER) (test code = 760) 27.9 seconds 22.5-36.0 PROTHROMBIN TIME/[id number] 19:25:00* Test Item Value Reference Range Interpretation Comments PROTIME (BEAKER) (test code = 759) 12.7 seconds 11.9-14.2 INR (BEAKER) (test code = 370) 1.0 <=5.9 Effective 11/04/2018: PT Reference Range ChangeNew: 11.9-14.2 Previous: 11.7-14. 7RECOMMENDED COUMADIN/WARFARIN INR THERAPY RANGESSTANDARD DOSE: 2.0-3.0 Include s: PROPHYLAXIS for venous thrombosis, systemic embolization; TREATMENT for venou s thrombosis and/or pulmonary embolus.HIGH RISK: Target INR is 2.5-3.5 for patie nts wiht mechanical heart valves.CBC (HEMOGRAM ONLY)2019-12-12 19:23:00* Test Item Value Reference Range Interpretation Comments WHITE BLOOD CELL COUNT (BEAKER) (test code = 775) 3.4 K/ L 3.5- 10.5 L RED BLOOD CELL COUNT (BEAKER) (test code = 761) 5.22 M/ L 4.63-6 .08 HEMOGLOBIN (BEAKER) (test code = 410) 14.8 GM/DL 13.7-17.5 HEMATOCRIT (BEAKER) (test code = 411) 44.1 % 40.1-51.0 MEAN CORPUSCULAR VOLUME (BEAKER) (test code = 753) 84.5 fL 79. 0-92.2 MEAN CORPUSCULAR HEMOGLOBIN (BEAKER) (test code = 751) 28.4 pg 25.7-32.2 MEAN CORPUSCULAR HEMOGLOBIN CONC (BEAKER) (test code = 752) 33.6 GM/DL 32.3-36.5 RED CELL DISTRIBUTION WIDTH (BEAKER) (test code = 412) 13.6 % 11.6-14.4 PLATELET COUNT (BEAKER) (test code = 756) 86 K/CU MM 150-450 L MEAN PLATELET VOLUME (BEAKER) (test code = 754) 11.5 fL 9.4-12 .4 NUCLEATED RED BLOOD CELLS (BEAKER) (test code = 413) 0 /100 WBC 0 -0 POCT-GLUCOSE [id number] 16:02:00* Test Item Value Reference Range Interpretation Comments POC-GLUCOSE METER (BEAKER) (test code = 1538) 398 mg/dL 70-110 H : TESTED [address], [address]: Marketing Strategy Manager/Clinical Laboratory Technician ID = [id number] for ESTEFANIA BLUE [id number] 13:41:00* Test Item Value Reference Range Interpretation Comments FERRITIN (BEAKER) (test code = 361) 6366.69 ng/mL 5.00-275.00 H Marketing Strategy Manager ID - RESHMA [id number] 12:27:00* Test Item Value Reference Range Interpretation Comments PROCALCITONIN (BEAKER) (test code = 3036) 4.48 ng/mL <0.05 H SEPSIS RISK (ng/mL)Low: 0.05-0.50Intermediate: 0.51-2.00High: > =2.01C-REACTIVE [id number] 12:14:00* Test Item Value Reference Range Interpretation Comments C-REACTIVE PROTEIN (BEAKER) (test code = 676) 18.07 mg/dL 0.00-0.5 0 H Marketing Strategy Manager ID - RESHMA [id number] 12:14:00* Test Item Value Reference Range Interpretation Comments FIBRINOGEN LEVEL (BEAKER) (test code = 658) 635 mg/dl 225-434 H COMPREHENSIVE METABOLIC [id number] 08:32:00* Test Item Value Reference Range Interpretation Comments TOTAL PROTEIN (BEAKER) (test code = 770) 7.1 gm/dL 6.0-8.3 ALBUMIN (BEAKER) (test code = 1145) 3.8 g/dL 3.5-5.0 ALKALINE PHOSPHATASE (BEAKER) (test code = 346) 169 U/L 40-150 H BILIRUBIN TOTAL (BEAKER) (test code = 377) 0.6 mg/dL 0.2-1.2 SODIUM (BEAKER) (test code = 381) 134 meq/L 136-145 L POTASSIUM (BEAKER) (test code = 379) 5.6 meq/L 3.5-5.1 H CHLORIDE (BEAKER) (test code = 382) 98 meq/L 98-107 CO2 (BEAKER) (test code = 355) 17 meq/L 22-29 L BLOOD UREA NITROGEN (BEAKER) (test code = 354) 61 mg/dL 7-21 H CREATININE (BEAKER) (test code = 358) 3.06 mg/dL 0.57-1.25 H GLUCOSE RANDOM (BEAKER) (test code = 652) 395 mg/dL 70-105 H CALCIUM (BEAKER) (test code = 697) 8.0 mg/dL 8.4-10.2 L AST (SGOT) (BEAKER) (test code = 353) 76 U/L 5-34 H ALT (SGPT) (BEAKER) (test code = 347) 39 U/L 6-55 EGFR (BEAKER) (test code = 1092) 21 mL/min/1.73 sq m ESTIMATED GFR IS NOT ACCURATE CREATININE CLEARANCE IN PREDICTING GLOMERULAR FILTRATION RATE. ESTIMATED GFR IS NOT APPLICABLE FOR DIALYSIS PATIENTS. Marketing Strategy Manager ID - JUN CB-TYPE NATRIURETIC FACTOR (BNP)2019-12-12 08:20:00* Test Item Value Reference Range Interpretation Comments B-TYPE NATRIURETIC PEPTIDE (BEAKER) (test code = 700) 58 pg/mL 0-100 Marketing Strategy Manager ID - JUN CLACTIC ACID, [id number] 08:09:00* Test Item Value Reference Range Interpretation Comments LACTATE BLOOD VENOUS (2) (BEAKER) (test code = 2872) 1.99 mmol/L 0 .50-2.20 Specimen slightly hemolyzed Marketing Strategy Manager ID - JUN CCBC (HEMOGRAM ONLY)2019-12-12 07:49:00* Test Item Value Reference Range Interpretation Comments WHITE BLOOD CELL COUNT (BEAKER) (test code = 775) 2.9 K/ L 3.5- 10.5 L RED BLOOD CELL COUNT (BEAKER) (test code = 761) 5.55 M/ L 4.63-6 .08 HEMOGLOBIN (BEAKER) (test code = 410) 15.9 GM/DL 13.7-17.5 HEMATOCRIT (BEAKER) (test code = 411) 46.8 % 40.1-51.0 MEAN CORPUSCULAR VOLUME (BEAKER) (test code = 753) 84.3 fL 79. 0-92.2 MEAN CORPUSCULAR HEMOGLOBIN (BEAKER) (test code = 751) 28.6 pg 25.7-32.2 MEAN CORPUSCULAR HEMOGLOBIN CONC (BEAKER) (test code = 752) 34.0 GM/DL 32.3-36.5 RED CELL DISTRIBUTION WIDTH (BEAKER) (test code = 412) 13.5 % 11.6-14.4 PLATELET COUNT (BEAKER) (test code = 756) 52 K/CU MM 150-450 L MEAN PLATELET VOLUME (BEAKER) (test code = 754) 11.9 fL 9.4-12 .4 NUCLEATED RED BLOOD CELLS (BEAKER) (test code = 413) 0 /100 WBC 0 -0 LACTIC ACID, [id number] 03:44:00* Test Item Value Reference Range Interpretation Comments LACTATE BLOOD VENOUS (2) (BEAKER) (test code = 6312) 0.96 mmol/L 0 .50-2.20 Specimen slightly hemolyzed Marketing Strategy Manager ANGELINA - PIAYA LTHROMBOELASTOGRAPH (TEG)2019-12-12 01:19:00* Test Item Value Reference Range Interpretation Comments TEG ACTIVATED CLOTTING TIME (BEAKER) (test code = 1407) 5.4 minutes 4.0-7.0 TEG FIBRINOGEN ACTIVITY (BEAKER) (test code = 1408) 60.8 degrees 61 .0-73.0 L TEG PLT. AGGREGATION (BEAKER) (test code = 1409) 63.5 MM 55.0- 65.0 TEG FIBRINOLYSIS (BEAKER) (test code = 1410) 0.0 % 0.0-5.0 TGH ACTIVATED CLOTTING TIME (BEAKER) (test code = 1411) 5.6 minutes 4.0-7.0 TGH FIBRINOGEN ACTIVITY (BEAKER) (test code = 1412) 69.7 degrees 61 .0-73.0 TGH PLT. AGGREGATION (BEAKER) (test code = 1413) 60.5 MM 55.0- 65.0 TGH FIBRINOLYSIS (BEAKER) (test code = 1414) 0.0 % 0.0-5.0 BLOOD GAS, [id number] 22:10:00* Test Item Value Reference Range Interpretation Comments PH ARTERIAL (BEAKER) (test code = 383) 7.34 7.35-7.45 L PCO2 ARTERIAL (BEAKER) (test code = 384) 39 mmHg 35-45 PO2 ARTERIAL (BEAKER) (test code = 385) 62 mmHg 80-90 L O2 SATURATION ARTERIAL (BEAKER) (test code = 386) 89.1 % 96.0 -97.0 L HCO3 ARTERIAL (BEAKER) (test code = 388) 20 mmol/L 21-29 L BASE EXCESS ARTERIAL (BEAKER) (test code = 387) -4.5 mmol/L -2.0-3 .0 L PATIENT TEMPERATURE (BEAKER) (test code = 1818) 38.0 C FIO2 (BEAKER) (test code = 1819) 40.0 % LACTIC ACID, [id number] 22:05:00* Test Item Value Reference Range Interpretation Comments LACTATE BLOOD VENOUS (2) (BEAKER) (test code = 2872) 1.21 mmol/L 0 .50-2.20 Specimen slightly hemolyzed Marketing Strategy Manager ID - DBLACTIC ACID, [id number] 19:37:00* Test Item Value Reference Range Interpretation Comments LACTATE BLOOD VENOUS (2) (BEAKER) (test code = 2872) 1.00 mmol/L 0 .50-2.20 Specimen slightly hemolyzed Marketing Strategy Manager ID - DBBLOOD GAS, [id number] 19:23:00* Test Item Value Reference Range Interpretation Comments PH VENOUS (BEAKER) (test code = 701) 7.34 7.32-7.42 PCO2 VENOUS (BEAKER) (test code = 755) 45 mmHg 41-51 PO2 VENOUS (BEAKER) (test code = 702) 24 mmHg 25-40 L O2 SATURATION VENOUS (BEAKER) (test code = 703) 41.3 % 40.0-7 0.0 HCO3 VENOUS (BEAKER) (test code = 705) 24 mmol/L 21-29 BASE EXCESS VENOUS (BEAKER) (test code = 704) -2.4 mmol/L -2.0-3.0 L PATIENT TEMPERATURE (BEAKER) (test code = 1818) 36.0 C FIO2 (BEAKER) (test code = 1819) 40.0 % SARS-COV2/RT-PCR ([facility])2019-12-11 19:20:00* Test Item Value Reference Range Interpretation Comments SARS-COV2/RT-PCR (test code = 0985737) Detected Not Detected, N egative AA SARS-COV-2 PERFORMING LAB (test code = 2464933) [facility] [place] Results are for the detection of SARS-CoV-2 RNA. The SARS-CoV-2 RNA is generally detectable in nasopharyngeal swab specimens during the acute phase of infection . Positive results are indicative of active infection with SARS-CoV-2; clinical correlation with patient history and other diagnostic information is necessary t o determine patient infection status. Positive results do not rule out bacterial infection or co-infection with other viruses. The agent detected may not be the definite cause of disease. The limit of detection for this assay is 250 copies/ mL.This SARS CoV-2 test is a rapid, real-time RT-PCR test intended for the quali tative detection of nucleic acid from SARS-CoV-2 in a nasopharyngeal swab specim en collected from individuals suspected of COVID-19 by their healthcare provider .This test has not been Food and Drug Administration (FDA) cleared or approved a nd has been authorized by FDA under an Emergency Use Authorization (EUA). This E UA will be effective until the declaration that circumstances exist justifying t he authorization of the emergency use of in vitro diagnostic tests for detection and/or diagnosis of COVID-19 is terminated under Section 564(b)(2) of the Act o r the EUA is revoked under Section 564(g) of the Act.Fact Sheet for Healthcare P roviders:https://www.uberVU.Desi Hits/Documents/Xpert%20Xpress%20SARS%20CoV-2/Fact%20 Sheets/105-0134%62OMPN-DNL-4%20HEALTHCARE%20PROVIDERS%20FACT%20SHEET.pdfFact She et for Healthcare Patients:https://www.uberVU.Desi Hits/Documents/Xpert%20Xpress%20SA RS%20CoV-2/Fact%20Sheets/302-3801%07ZYDZ-CWT-7%20PATIENT%20FACT%20SHEET.pdfPerfo rming Laboratory:[facility], [place] [address]B-TYPE NATRIURETIC FACTOR (BNP)2019-12-11 18:03:00* Test Item Value Reference Range Interpretation Comments B-TYPE NATRIURETIC PEPTIDE (BEAKER) (test code = 700) 31 pg/mL 0-100 Marketing Strategy Manager ID - NTPBASIC METABOLIC [id number] 17:57:00* Test Item Value Reference Range Interpretation Comments SODIUM (BEAKER) (test code = 381) 131 meq/L 136-145 L POTASSIUM (BEAKER) (test code = 379) 4.8 meq/L 3.5-5.1 CHLORIDE (BEAKER) (test code = 382) 99 meq/L 98-107 CO2 (BEAKER) (test code = 355) 22 meq/L 22-29 BLOOD UREA NITROGEN (BEAKER) (test code = 354) 61 mg/dL 7-21 H CREATININE (BEAKER) (test code = 358) 3.41 mg/dL 0.57-1.25 H GLUCOSE RANDOM (BEAKER) (test code = 652) 236 mg/dL 70-105 H CALCIUM (BEAKER) (test code = 697) 8.0 mg/dL 8.4-10.2 L EGFR (BEAKER) (test code = 1092) INSUFFICIENT CLINICAL DATA TO CALCULATE ESTIMATED GFR. Marketing Strategy Manager ID - [id number] 17:52:00* Test Item Value Reference Range Interpretation Comments D-DIMER QUANTITATIVE (BEAKER) (test code = 671) 1.01 MG/L FEU <0.50 H Intended Use: The D-Dimer Assay can be used to aid in the diagnosis of Deep Vein Thrombosis (DVT) and Pulmonary Embolism Disease (PED).In patients with low pre- test probability, various studies concerning STA Liatest D-dimer test have repor dio that with a cutoff value of 0.50 MG/L FEU, the Negative Predictive Value (STOCK FEEDER V) regarding the exclusion of thrombosis is within 95-100% range.PT/APTT 2019-12-11 17:50:00* Test Item Value Reference Range Interpretation Comments PROTIME (BEAKER) (test code = 759) 11.7 seconds 11.9-14.2 L INR (BEAKER) (test code = 370) 0.9 <=5.9 PARTIAL THROMBOPLASTIN TIME (BEAKER) (test code = 760) 28.3 seconds 22.5-36.0 Effective 11/04/2018: PT Reference Range ChangeNew: 11.9-14.2 Previous: 11.7-14. 7RECOMMENDED COUMADIN/WARFARIN INR THERAPY RANGESSTANDARD DOSE: 2.0-3.0 Include s: PROPHYLAXIS for venous thrombosis, systemic embolization; TREATMENT for venou s thrombosis and/or pulmonary embolus.HIGH RISK: Target INR is 2.5-3.5 for patie nts wiht mechanical heart valves.RAD, CHEST, 1 VIEW, NON [id number] 17:46:00 Reason for exam:->dyspnea, eval for pneumoniaShould this be performed at the bedside?->YesFINAL REPORT EXAM: Chest one view CLINICAL HISTORY: Dyspnea FINDINGS: Bilateral patchy airway opacities are noted suspicious for acute pneumonitis. There is no evidence of pleural effusion or pneumothorax. The cardiac size is within normal limits. The regional osseous structures are unremarkable. Signed: Dominic Acevedo MDReport Verified Date/Time: 12/11/2019 17:46:54 Reading Location: [address] Transitional Reading Room W/PLT COUNT & AUTO [id number] 17:42:00* Test Item Value Reference Range Interpretation Comments WHITE BLOOD CELL COUNT (BEAKER) (test code = 775) 3.0 K/ L 3.5- 10.5 L RED BLOOD CELL COUNT (BEAKER) (test code = 761) 5.42 M/ L 4.63-6 .08 HEMOGLOBIN (BEAKER) (test code = 410) 15.6 GM/DL 13.7-17.5 HEMATOCRIT (BEAKER) (test code = 411) 45.5 % 40.1-51.0 MEAN CORPUSCULAR VOLUME (BEAKER) (test code = 753) 83.9 fL 79. 0-92.2 MEAN CORPUSCULAR HEMOGLOBIN (BEAKER) (test code = 751) 28.8 pg 25.7-32.2 MEAN CORPUSCULAR HEMOGLOBIN CONC (BEAKER) (test code = 752) 34.3 GM/DL 32.3-36.5 RED CELL DISTRIBUTION WIDTH (BEAKER) (test code = 412) 13.5 % 11.6-14.4 PLATELET COUNT (BEAKER) (test code = 756) 52 K/CU MM 150-450 L MEAN PLATELET VOLUME (BEAKER) (test code = 754) 12.1 fL 9.4-12 .4 NUCLEATED RED BLOOD CELLS (BEAKER) (test code = 413) 0 /100 WBC 0 -0 NEUTROPHILS RELATIVE PERCENT (BEAKER) (test code = 429) 77 % LYMPHOCYTES RELATIVE PERCENT (BEAKER) (test code = 430) 15 % MONOCYTES RELATIVE PERCENT (BEAKER) (test code = 431) 7 % EOSINOPHILS RELATIVE PERCENT (BEAKER) (test code = 432) 0 % BASOPHILS RELATIVE PERCENT (BEAKER) (test code = 437) 0 % NEUTROPHILS ABSOLUTE COUNT (BEAKER) (test code = 670) 2.29 K/ L 1.78-5.38 LYMPHOCYTES ABSOLUTE COUNT (BEAKER) (test code = 414) 0.45 K/ L 1.32-3.57 L MONOCYTES ABSOLUTE COUNT (BEAKER) (test code = 415) 0.20 K/ L 0. 30-0.82 L EOSINOPHILS ABSOLUTE COUNT (BEAKER) (test code = 416) 0.00 K/ L 0.04-0.54 L BASOPHILS ABSOLUTE COUNT (BEAKER) (test code = 417) 0.00 K/ L 0. 01-0.08 L IMMATURE GRANULOCYTES-RELATIVE PERCENT (BEAKER) (test code = 2801) 1 % 0-1 ECG/EKG [id number] 17:18:33Valdemar Casey MD 12/11/2019 6:21 PMECG/EKG InterpretationDate/Time: 12/11/2019 5:18 PMPerformed by: Valdemar Caesy MDAuthorized by: Valdemar Casey MD The ECG was interpreted by ED physician. The ECG is interpreted as sinus rhythm. Rate is normal rate. Heart rate is 86 BPM.Conduction: conduction normal. ST segments normal. T waves normal. [facility]
--- NOTE | 2020-05-03 12:16 | Emergency Department Note ---
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 [facility]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: IV, EKG Tray Service Worker Required: No Onset (how long ago): day(s) (3) Location: Generalized Quality: hypotension Radiation: Reports non-radiation Severity: moderate Onset quality: gradual Duration (how long): day(s) (3) Timing of current episode: constant Progression: worsening Chronicity: new Context: Reports recent illness (COVID); Denies recent surgery Relieving factors: none Exacerbating factors: none Associated symptoms: Reports denies other symptoms Treatments prior to arrival: none Past Medical/Family History Physician Review I have reviewed the patient's past medical and family history. Any updates have been documented here. Past Medical History Recent Fever: No Clinical Suspicion of Infectio: No New/Unexplained Change in Ment: No Past Medical History: Hypertension, Diabetes, Asthma, Hyperlipedemia Other Medical History: COVID February 2020 Other Surgery: Intubated In ICU for COVID (February 2020) Review of Systems Review of Systems Constitutional: Reports as per HPI (Hypotension), Reports weakness EENTM: Reports no symptoms Cardiovascular: Reports no symptoms Respiratory: Reports no symptoms Gastrointestinal: Reports no symptoms Genitourinary: Reports no symptoms Musculoskeletal: Reports no symptoms Integumentary: Reports no symptoms Neurological: Reports no symptoms Psychological: Reports no symptoms Endocrine: Reports no symptoms Hematological/Lymphatic: Reports no symptoms Physical Exam Related Data Allergies: Coded Allergies: tetracycline (Verified Allergy, Severe, TACHYCARDIA, 12/02/15) Triage Vital Signs Vital Signs Date Time Temp Pulse Resp B/P (MAP) Pulse Ox O2 Delivery O2 Flow Rate FiO2 05/03/20 11:06 98.1 94 28 65/48 97 Room Air Vital signs reviewed: Yes Physical Exam CONSTITUTIONAL Constitutional: Present well-developed, Present well-nourished HENT HENT: Present normocephalic, Present atraumatic, Present oropharynx clear/m oist, Present nose normal HENT L/R: Present left ext ear normal, Present right ext ear normal EYES Eyes: Reports PERRL, Reports conjunctivae normal NECK Neck: Present ROM normal PULMONARY Pulmonary: Present effort normal, Present breath sounds normal CARDIOVASCULAR Cardiovascular: Present regular rhythm, Present heart sounds normal, Present capillary refill normal, Present normal rate GASTROINTESTINAL Abdominal: Present soft, Present nontender, Present bowel sounds normal GENITOURINARY Genitourinary: Present exam deferred SKIN Skin: Present warm, Present dry MUSCULOSKELETAL Musculoskeletal: Present ROM normal NEUROLOGICAL Neurological: Present alert, Present oriented x 3, Present no gross motor or sensory deficits PSYCHOLOGICAL Psychological: Present mood/affect normal, Present judgement normal Results Laboratory Result Diagram: 05/03/20 1123 Laboratory Laboratory Tests Test 05/03/20 11:23 White Blood Count 13.04 x10e3/uL (4.8-10.8) Red Blood Count 4.25 x10e6/uL (4.3-5.7) Hemoglobin 11.5 g/dL (14.0-18.0) Hematocrit 36.9 % (38.2-49.6) Mean Corpuscular Volume 86.8 fL (81-99) Mean Corpuscular Hemoglobin 27.1 pg (28-32) Mean Corpuscular Hemoglobin Concent 31.2 g/dL (31-35) Red Cell Distribution Width 16.0 % (11.7-14.4) Platelet Count 108 x10e3/uL (140-360) Neutrophils (%) (Auto) 77.1 % (38.7-80.0) Lymphocytes (%) (Auto) 8.4 % (18.0-39.1) Monocytes (%) (Auto) 12.9 % (4.4-11.3) Eosinophils (%) (Auto) 0.4 % (0.0-6.0) Basophils (%) (Auto) 0.4 % (0.0-1.0) Neutrophils # (Auto) 10.1 (2.1-6.9) Lymphocytes # (Auto) 1.1 (1.0-3.2) Monocytes # (Auto) 1.7 (0.2-0.8) Eosinophils # (Auto) 0.1 (0.0-0.4) Basophils # (Auto) 0.1 (0.0-0.1) Absolute Immature Granulocyte (auto 0.11 x10e3/uL (0-0.1) Procedures 12 Lead ECG Interpretation ECG Interpretation : Tray Service Worker: Interpreted by ED physician Date: May 03, 2020 Rhythm: sinus rhythm Rate: normal QRS axis: normal ST segments normal: Yes T waves normal: Yes Clinical Impression: normal ECG Assessment & Plan Medical Decision Making MDM 54-year-old male with past medical history significant for recent extended ICU stay secondary to [place] virus presents to emergency department for hypotension. He has had very poor oral intake over the last 3 days. He is currently being treated for a urinary tract infection with Omnicef. Examination shows hypotension but MAP is 70. He was given 2.6 L crystalloid. A results show acute renal failure with hepatic injury. Concern for hepatorenal syndrome. Additionally concern for his ongoing urinary tract infection, he was given cefepime and vancomycin. Will transfer to [facility] for ARF, Hepatitis unspecified, and hypotension. Discussed with Dr. Kaiser at [facility] who has agreed to accept. Reassessment Reassessment time: 12:15 Reassessment No acute distress Assessment & Plan Final Impression: (1) Acute renal failure (2) Hepatitis (3) Hypotension Depart Disposition: TRANS TO OTHER [facility] F[facility] Last Vital Signs Date Time Temp Pulse Resp B/P (MAP) Pulse Ox O2 Delivery O2 Flow Rate FiO2 05/03/20 11:06 98.1 94 28 65/48 97 Room Air Home Meds Reported Medications Metoprolol Succinate (METOPROLOL SUCCINATE) 50 Mg Tab.er.24h, 100 MG PO DAILY, MG 12/01/15 Amlodipine Besylate (AMLODIPINE BESYLATE) 10 Mg Tablet, 10 MG PO DAILY, #30 TAB 12/01/15 Hydrochlorothiazide (HYDROCHLOROTHIAZIDE) 25 Mg Tablet, 25 MG PO DAILY, #30 TAB 12/01/15 Glyburide/Metformin Hcl (GLYBURIDE-METFORMIN 5-500 MG) 1 Each Tablet, PO QID 12/01/15 Pantoprazole Sodium* (PROTONIX) 40 Mg Tablet.dr, 40 MG PO DAILY, TAB 12/01/15 Sitagliptin Phosphate (JANUVIA) 100 Mg Tablet, 100 MG PO DAILY, #30 TAB 12/01/15 Medications in the ED Lactated Ringer's 1,000 ml @ 0 mls/hr Q0M ONCE INJ ; Start 05/03/20 at 12:00; Stop 05/03/20 at 12:01; Status DC CARMINE HERMOSILLO MD May 03, 2020 12:15
--- NOTE | 2020-05-03 12:48 | Diagnostic Imaging Report ---
EXAMINATION: CHEST SINGLE (PORTABLE) INDICATION: Hypotension COMPARISON: Chest radiograph of 04/27/2020 FINDINGS: LINES/TUBES:None LUNGS:The lung volumes are low. Mild bibasilar patchy opacities. PLEURA:No pleural effusion or pneumothorax. MEDIASTINUM:The cardiomediastinal silhouette appears normal in size and shape. BONES/SOFT TISSUES:No acute osseous injury. ABDOMEN:No free air under the diaphragm. IMPRESSION: Mild bibasilar patchy opacities, most likely subsegmental atelectasis and/or post infectious scarring. Signed by: Bebeto Almazan MD on 05/03/2020 12:44 PM
[2020-05-03 13:03] LABS: ALBUMIN 1.7 g/dL (3.5-5.0); ALBUMIN/GLOBULIN RATIO 0.5 (0.8-2.0); ANION GAP 17.7 mmol/L (8-16); CREATININE, SERUM 6.17 mg/dL (0.72-1.25); POTASSIUM 3.7 mmol/L (3.5-5.1)
[2020-05-03 13:06] LABS: CALCIUM 6.9 mg/dL (8.4-10.2)
[2020-05-03] MEDS ORDERED: PIPERACILLIN/TAZO 4.5 GM 100 ML IV STA (13:12)
[2020-05-03] MEDS ORDERED: CALCIUM GLUCONATE 10% INJ 4.65 MEQ in SODIUM CHLORIDE 0.9% 50ML 50 ML IV ONE (13:15)
[2020-05-03] MEDS ORDERED: VANCOMYCIN 500MG/NS 0.9% 100ML 100 ML IV SCH (13:15)
[2020-05-03] MEDS ORDERED: CEFEPIME 1GM/NS 0.9% 50 ML 50 ML IV SCH (13:24)
[2020-05-03 16:58] VITALS: BP 91/67
== END 2020-05-03 17:00 | disposition other institution (70) ==
LOC: ER 11:06
DX: N17.9 Acute kidney failure, unspecified (principal); K75.9 Inflammatory liver disease, unspecified; I95.9 Hypotension, unspecified; I10 Essential (primary) hypertension; E11.9 Type 2 diabetes mellitus without complications; E78.5 Hyperlipidemia, unspecified
CPT/HCPCS: 36415; 71045; 80053; 83605; 83880; 84484; 85025; 87040; 93005; 99284; J0610; J0692; J3370; J7121